=== PATIENT | male | born 1960 | race Caucasian/White ===

== ENCOUNTER → 2016-09-27 | Outpatient (REF) | payer OTHER | LOC: M LAB REF 16:29 | PROVIDERS: ATTEND Family Medicine | DX: R10.9 Unspecified abdominal pain (principal) ==

== ENCOUNTER → 2017-12-20 | Outpatient (REF) | payer BC ==
[2017-12-20 15:56] LABS: HEMATOCRIT 42.3 % (42.0-52.0); HEMOGLOBIN 14.6 g/dl (13.5-17.5); MEAN CORPUSCULAR HEMOGLOBIN 33.3 pg (27.0-33.0); MEAN CORPUSCULAR HGB CONC 34.5 g/dl (32.0-36.5); MEAN CORPUSCULAR VOLUME 96.6 fl (80.0-96.0); PLATELET COUNT, AUTOMATED 176 10^3/uL (150-450); RED BLOOD COUNT 4.38 10^6/uL (4.30-6.10); RED CELL DISTRIBUTION WIDTH 12.8 % (11.5-14.5); WHITE BLOOD COUNT 9.3 10^3/uL (4.0-10.0)
== END ==
LOC: M LABDRAW1 14:10
DX: Z47.89 Encounter for other orthopedic aftercare (principal)
CPT/HCPCS: 85027

== ENCOUNTER → 2018-10-21 | Outpatient (REF) | payer BC | LOC: M LAB REF 15:58 | PROVIDERS: ATTEND Surgery | DX: Z12.11 Encounter for screening for malignant neoplasm of colon (principal) ==

== ENCOUNTER 2018-12-10 07:30 | Day surgery (SDC) | payer BC ==
[~2018-12-10] VITALS: Ht 177.8 cm; Wt 107.5 kg
[~2018-12-10 07:30] MED LIST: HYDR12.55 PO; LISI10TA4 PO; METF-839 PO; OMEP40CA2 PO; ZOLO50TA PO
[2018-12-10] MEDS ORDERED: NS 1,000 ML IV ONE (07:45)
[2018-12-10] MEDS ORDERED: LIDOCAINE 2% INJ 100 MG/5 ML SDV (FOR ANES.) As Ordered ONE (07:58)
[2018-12-10] MEDS ORDERED: PROPOFOL 500 MG/50 ML VIAL As Ordered ONE ×2 (07:58→08:15)
[2018-12-10] MEDS ORDERED: ESMOLOL INJ 100MG/10ML VIAL As Ordered ONE (08:23)
[2018-12-10] MEDS ORDERED: fentaNYL 100 MCG/2 ML INJECTION (J3010) As Ordered ONE (08:23)
[2018-12-10] MEDS ORDERED: hydrALAZINE INJ 20 MG/ML VIAL As Ordered ONE (08:32)
--- NOTE | 2018-12-10 08:44 | ROOR ---
Patient Name: Dipak Mcmahan Procedure Date: 12/10/2018 7:53 AM Date of : 1960 Age: 58 Room: [facility] Gender: Male Note Status: Finalized Procedure: Colonoscopy Indications: Screening for colorectal malignant neoplasm Providers: Fco Cates MD Referring MD: Nader Goldman MD Requesting Provider: Medicines: Monitored Anesthesia Care Complications: No immediate complications. Procedure: Pre-Anesthesia Assessment: - Prior to the procedure, a History and Physical was performed, and patient medications and allergies were reviewed. The patient is competent. The risks and benefits of the procedure and the sedation options and risks were discussed with the patient. All questions were answered and informed consent was obtained. Patient identification and proposed procedure were verified by the physician, the nurse and the anesthesiologist in the endoscopy suite. Mental Status Examination: alert and oriented. Airway Examination: normal oropharyngeal airway and neck mobility. Respiratory Examination: clear to auscultation. CV Examination: normal. Prophylactic Antibiotics: The patient does not require prophylactic antibiotics. Prior Anticoagulants: The patient has taken aspirin, last dose was 1 day prior to procedure. ASA Grade Assessment: III - A patient with severe systemic disease. After reviewing the risks and benefits, the patient was deemed in satisfactory condition to undergo the procedure. The anesthesia plan was to use monitored anesthesia care (MAC). Immediately prior to administration of medications, the patient was re-assessed for adequacy to receive sedatives. The heart rate, respiratory rate, oxygen saturations, blood pressure, adequacy of pulmonary ventilation, and response to care were monitored throughout the procedure. The physical status of the patient was re-assessed after the procedure. The Colonoscope was introduced through the anus and advanced to the cecum, identified by appendiceal orifice and ileocecal valve. The colonoscopy was technically difficult and complex due to the patient's medical instability in reaction to sedation medication. Successful completion of the procedure was aided by increasing the dose of sedation medication. The patient tolerated the procedure fairly well. The quality of the bowel preparation was good. Findings: The perianal and digital rectal examinations were normal. Multiple small-mouthed diverticula were found in the sigmoid colon, transverse colon and ascending colon. There was no evidence of diverticular bleeding. Two pedunculated polyps were found in the distal transverse colon. The polyps were 7 to 10 mm in size. These polyps were removed with a hot snare. Resection and retrieval were complete. Estimated blood loss: none. A 20 mm polyp was found in the sigmoid colon. The polyp was pedunculated. The polyp was removed with a hot snare. Resection and retrieval were complete. Estimated blood loss: none. To prevent bleeding after the polypectomy, one hemostatic clip was successfully placed (MR conditional). There was no bleeding at the end of the procedure. A 10 mm polyp was found in the sigmoid colon. The polyp was pedunculated. The polyp was removed with a hot snare. Resection and retrieval were complete. Estimated blood loss: none. The retroflexed view of the distal rectum and anal verge was normal and showed no anal or rectal abnormalities. Impression: - Mild diverticulosis in the sigmoid colon, in the transverse colon and in the ascending colon. There was no evidence of diverticular bleeding. - Two 7 to 10 mm polyps in the distal transverse colon, removed with a hot snare. Resected and retrieved. - One 20 mm polyp in the sigmoid colon, removed with a hot snare. Resected and retrieved. Clip (MR conditional) was placed. - One 10 mm polyp in the sigmoid colon, removed with a hot snare. Resected and retrieved. - The distal rectum and anal verge are normal on retroflexion view. Recommendation: - Discharge patient to home (ambulatory). - High fiber diet indefinitely. - Repeat colonoscopy in 1 year for surveillance of multiple polyps. - Return to my office as previously scheduled. Fco Cates MD Fco Cates MD 12/10/2018 8:43:51 AM Electronically signed by Fco Cates MD Number of Addenda: 0 Note Initiated On: 12/10/2018 7:53 AM Estimated Blood Loss: Estimated blood loss: none.
[2018-12-10 09:00] VITALS: BP 147/77
== END 2018-12-10 09:06 | disposition home or self-care (01) ==
LOC: M OPP 07:30
PROVIDERS: ATTEND Surgery
DX: Z12.11 Encounter for screening for malignant neoplasm of colon (principal); D12.3 Benign neoplasm of transverse colon; D12.5 Benign neoplasm of sigmoid colon; K57.30 Diverticulosis of large intestine without perforation or abscess without bleeding; Z79.84 Long term (current) use of oral hypoglycemic drugs; Z79.899 Other long term (current) drug therapy
CPT/HCPCS: 45385; 88305; J3010

== ENCOUNTER 2019-01-21 07:18 | Day surgery (SDC) | payer BC ==
[~2019-01-21] VITALS: Ht 177.8 cm; Wt 104.8 kg
[~2019-01-21 07:18] MED LIST changes: +NS 1,000 ML IV ONE
[2019-01-21] MEDS ORDERED: PROPOFOL 500 MG/50 ML VIAL As Ordered ONE (08:09)
[2019-01-21] MEDS ORDERED: LIDOCAINE 2% INJ 100 MG/5 ML SDV (FOR ANES.) As Ordered ONE (08:09)
[2019-01-21] MEDS ORDERED: fentaNYL 100 MCG/2 ML INJECTION (J3010) As Ordered ONE (08:21)
--- NOTE | 2019-01-21 09:01 | ROOR ---
Patient Name: Dipak Mcmahan Procedure Date: 01/21/2019 8:06 AM Date of : 1960 Age: 58 Room: [facility] Gender: Male Note Status: Finalized Procedure: Colonoscopy Indications: High risk colon cancer surveillance: Personal history of colonic polyps Providers: Fco Cates MD Referring MD: Nader Goldman MD Requesting Provider: Medicines: to [place] site of malignant polyp Complications: No immediate complications. Procedure: Pre-Anesthesia Assessment: - Prior to the procedure, a History and Physical was performed, and patient medications and allergies were reviewed. The patient is competent. The risks and benefits of the procedure and the sedation options and risks were discussed with the patient. All questions were answered and informed consent was obtained. Patient identification and proposed procedure were verified by the physician, the nurse and the anesthesiologist in the endoscopy suite. Mental Status Examination: alert and oriented. Airway Examination: normal oropharyngeal airway and neck mobility. Respiratory Examination: clear to auscultation. CV Examination: normal. Prophylactic Antibiotics: The patient does not require prophylactic antibiotics. Prior Anticoagulants: The patient has taken no previous anticoagulant or antiplatelet agents. ASA Grade Assessment: III - A patient with severe systemic disease. After reviewing the risks and benefits, the patient was deemed in satisfactory condition to undergo the procedure. The anesthesia plan was to use monitored anesthesia care (MAC). Immediately prior to administration of medications, the patient was re-assessed for adequacy to receive sedatives. The heart rate, respiratory rate, oxygen saturations, blood pressure, adequacy of pulmonary ventilation, and response to care were monitored throughout the procedure. The physical status of the patient was re-assessed after the procedure. The Colonoscope was introduced through the anus and advanced to the descending colon to examine a polypectomy site. This was the intended extent. The colonoscopy was technically difficult and complex due to Patient abdominal breathing, apneic spells. Successful completion of the procedure was aided by increasing the dose of sedation medication. Findings: Hemorrhoids were found on perianal exam. scar from polypectomy located at 20 cms from anal verge. carbon spot marking with kassandra ink place in 3 areas past the polypectomy site, Estimated blood loss: none. A 5 mm polyp was found in the sigmoid colon at 20 cm proximal to the anus. The polyp was sessile. The polyp was removed with a cold snare. Resection and retrieval were complete. Estimated blood loss was minimal. Impression: - Hemorrhoids found on perianal exam. - One 5 mm polyp in the sigmoid colon at 20 cm proximal to the anus, removed with a cold snare. Resected and retrieved. Recommendation: - Patient for LAR tomorrow Fco Cates MD Fco Cates MD 01/21/2019 9:01:45 AM Electronically signed by Fco Cates MD Number of Addenda: 0 Note Initiated On: 01/21/2019 8:06 AM Estimated Blood Loss: Estimated blood loss was minimal.
[2019-01-21 09:20] VITALS: BP 172/103
== END 2019-01-21 09:35 | disposition home or self-care (01) ==
LOC: M OPP 07:18
PROVIDERS: ATTEND Surgery
DX: C18.7 Malignant neoplasm of sigmoid colon (principal); Z08 Encounter for follow-up examination after completed treatment for malignant neoplasm; Z86.010 Personal history of colon polyps; K63.5 Polyp of colon; K64.9 Unspecified hemorrhoids; Z79.84 Long term (current) use of oral hypoglycemic drugs; Z79.899 Other long term (current) drug therapy
CPT/HCPCS: 45385; 88305; J3010

== ENCOUNTER 2019-01-22 11:34 | Inpatient (IN) | payer BC ==
[~2019-01-22] VITALS: Ht 177.8 cm; Wt 102.5 kg
[~2019-01-22 11:34] MED LIST changes: +ALVIMOPAN 12 MG CAPSULE (ENTEREG) PO ONE; +HEPARIN SOD (PORCINE) 5000 UNITS/ML VIAL SQ ONE; +LR 1,000 ML IV ONE; -NS 1,000 ML IV ONE; +cefoTEtan DISODIUM 2 GM in D5W MINI-BAG PLUS 50 ML IV ONE; +metroNIDAZOLE 500 MG in APPROPRIATE DILUENT 1 EA IV ONE
[2019-01-22] MEDS ORDERED: LIDOCAINE 1% SDV INJ 30 ML VIAL As Ordered ONE (13:10)
[2019-01-22] MEDS ORDERED: BUPIVACAINE HCL 0.25% 30 ML VIAL As Ordered ONE (13:10)
[2019-01-22] MEDS ORDERED: PROPOFOL 200 MG/20 ML VIAL As Ordered ONE (14:03)
[2019-01-22] MEDS ORDERED: LIDOCAINE 2% INJ 100 MG/5 ML SDV (FOR ANES.) As Ordered ONE (14:03)
[2019-01-22] MEDS ORDERED: fentaNYL 250 MCG/5 ML INJECTION (J3010) As Ordered ONE (14:03)
[2019-01-22] MEDS ORDERED: PHENYLephrine HCL 500 MCG/5 ML (100MCG/ML) SYRINGE (J2370) As Ordered ONE (14:03)
[2019-01-22] MEDS ORDERED: ROCURONIUM BROMIDE 50 MG/5 ML VIAL As Ordered ONE ×3 (14:03→18:02)
[2019-01-22] MEDS ORDERED: MIDAZOLAM INJ 2 MG/2 ML VIAL (J2250) As Ordered ONE (14:03)
[2019-01-22] MEDS ORDERED: ALBUTEROL 6.7GM INHALER **FOR ANES. CART/OMNICELL ONLY As Ordered ONE (14:12)
[2019-01-22] MEDS ORDERED: dexameTHASONE 4 MG/ML 1ML VIAL (J1100) As Ordered ONE (14:23)
[2019-01-22] MEDS ORDERED: HYDROmorphone HCL 2 MG/ML 1ML VIAL (J1170) As Ordered ONE (15:23)
[2019-01-22] MEDS ORDERED: LABETALOL HCL 100 MG/20 ML VIAL As Ordered ONE (15:24)
[2019-01-22] MEDS ORDERED: DESFLURANE 240 ML INHALANT As Ordered ONE (15:37)
[2019-01-22] MEDS ORDERED: hydrALAZINE INJ 20 MG/ML VIAL As Ordered ONE ×2 (16:19→19:59)
[2019-01-22] MEDS ORDERED: SUGAMMADEX SODIUM 500 MG/5 ML VIAL (BRIDION) As Ordered ONE (19:10)
[2019-01-22] MEDS ORDERED: fentaNYL 100 MCG/2 ML INJECTION (J3010) As Ordered ONE ×2 (19:37→20:43)
[2019-01-22] MEDS: fentaNYL 100 MCG/2 ML INJECTION (J3010) IV PRN ×5 (19:40→20:44)
[2019-01-22] MEDS ORDERED: MEPERIDINE INJ 25 MG/ML VIAL (J2175) IV PRN (19:45)
[2019-01-22] MEDS ORDERED: PERCOCET 5MG/325MG TAB PO PRN (19:45)
[2019-01-22] MEDS ORDERED: ONDANSETRON 4MG/2ML VIAL (J2405) IV PRN ×2 (19:45)
[2019-01-22] MEDS ORDERED: ACETAMINOPHEN TAB 650MG DOSE (2X325MG) PO PRN (19:45)
[2019-01-22] MEDS: LR 1,000 ML IV SCH ×3 (19:45→22:27)
[2019-01-22] MEDS ORDERED: METOCLOPRAMIDE INJ 10MG/2ML VIAL (J2765) IV PRN (19:45)
[2019-01-22] MEDS ORDERED: DEXTROSE 50% 50 ML SYRINGE IV PRN (20:00)
[2019-01-22] MEDS ORDERED: GLUCOSE 4 GM CHEW TABLET PO PRN (20:00)
[2019-01-22] MEDS ORDERED: GLUCAGON FOR INJ 1 MG VIAL (J1610) SC PRN (20:00)
[2019-01-22] MEDS: hydrALAZINE INJ 20 MG/ML VIAL IV SCH ×3 (20:02→20:15)
[2019-01-22] MEDS: oxyCODONE 5MG TAB PO PRN ×2 (20:10→20:40)
[2019-01-22 21:30] VITALS: BP 144/84
[2019-01-22 22:00] VITALS: BP 145/87
[2019-01-22] MEDS: HEPARIN SOD (PORCINE) 5000 UNITS/ML VIAL SC SCH (22:27)
[2019-01-22] MEDS: SENOKOT S TAB PO SCH (22:27)
[2019-01-22] MEDS: ALVIMOPAN 12 MG CAPSULE (ENTEREG) PO SCH (22:27)
[2019-01-22 23:00] VITALS: BP 146/87
[2019-01-22] MEDS: KETOROLAC 30 MG/ML VIAL (J1885) IV PRN (23:38)
[2019-01-23] VITALS (8 sets, daily range): BP systolic 111–145; BP diastolic 61–85
[2019-01-23 06:11] LABS: BASO % 0.2 % (0.0-1.0); HEMOGLOBIN 13.6 g/dl (13.5-17.5); LYMPH # 1.3 10^3/uL (1.5-4.5); LYMPH % 11.6 % (24.0-44.0); MEAN CORPUSCULAR HEMOGLOBIN 32.5 pg (27.0-33.0); MEAN CORPUSCULAR VOLUME 95.7 fl (80.0-96.0); MONO # 1.1 10^3/uL (0.0-0.8); MONO % 9.8 % (0.0-5.0); NEUTROPHILS # 8.5 10^3/uL (1.8-7.7); NEUTROPHILS % 77.9 % (36.0-66.0); PLATELET COUNT, AUTOMATED 158 10^3/uL (150-450); RED BLOOD COUNT 4.18 10^6/uL (4.30-6.10); WHITE BLOOD COUNT 10.9 10^3/uL (4.0-10.0)
[2019-01-23] MEDS: KETOROLAC 30 MG/ML VIAL (J1885) IV PRN (06:26)
[2019-01-23 06:42] LABS: BLOOD UREA NITROGEN 15 MG/DL (7-18); CALCIUM LEVEL 8.6 MG/DL (8.5-10.1); CARBON DIOXIDE LEVEL 30 MEQ/L (21-32); CHLORIDE LEVEL 102 MEQ/L (98-107); GLOMERULAR FILTRATION RATE > 60.0 (>56); GLUCOSE, FASTING 122 MG/DL (70-100); POTASSIUM SERUM 3.9 MEQ/L (3.5-5.1); SODIUM LEVEL 137 MEQ/L (136-145)
[2019-01-23] MEDS: HEPARIN SOD (PORCINE) 5000 UNITS/ML VIAL SC SCH ×3 (06:59→21:36)
[2019-01-23] MEDS: HumaLOG INSULIN (NovoLOG) PER UNIT SC SCH ×5 (07:00→20:36)
[2019-01-23] MEDS: LISINOPRIL 10 MG TAB PO SCH (08:50)
[2019-01-23] MEDS: ALVIMOPAN 12 MG CAPSULE (ENTEREG) PO SCH ×2 (08:50→20:36)
[2019-01-23] MEDS: SENOKOT S TAB PO SCH ×2 (08:50→20:35)
[2019-01-23] MEDS: PANTOPRAZOLE 40MG INJ (PROTONIX) (C9113) IV SCH (08:50)
[2019-01-23] MEDS: LR 1,000 ML IV SCH ×3 (08:51→15:17)
[2019-01-23] MEDS: MORPHINE 4 MG/ML 1ML VIAL/SYRINGE (J2270) IV PRN ×4 (08:52→21:37)
[2019-01-23] MEDS ORDERED: DEXTROSE 50% 50 ML SYRINGE IV PRN (16:45)
[2019-01-23] MEDS ORDERED: GLUCAGON FOR INJ 1 MG VIAL (J1610) SC PRN (16:45)
[2019-01-23] MEDS ORDERED: GLUCOSE 4 GM CHEW TABLET PO PRN (16:45)
[2019-01-23] MEDS ORDERED: SIMETHICONE 80 MG CHEW TAB PO PRN (21:30)
[2019-01-24] MEDS: LR 1,000 ML IV SCH (00:04)
[2019-01-24 02:00] VITALS: BP 118/78
[2019-01-24] MEDS: MORPHINE 4 MG/ML 1ML VIAL/SYRINGE (J2270) IV PRN (03:07)
[2019-01-24 06:00] VITALS: BP 126/68
[2019-01-24] MEDS: HEPARIN SOD (PORCINE) 5000 UNITS/ML VIAL SC SCH ×3 (06:00→21:05)
[2019-01-24 06:25] LABS: BASO # 0.1 10^3/uL (0.0-0.2); BASO % 0.6 % (0.0-1.0); EOS # 0.1 10^3/uL (0.0-0.50); EOS % 1.4 % (0.0-3.0); HEMOGLOBIN 13.2 g/dl (13.5-17.5); LYMPH # 1.7 10^3/uL (1.5-4.5); LYMPH % 20.9 % (24.0-44.0); MEAN CORPUSCULAR HEMOGLOBIN 33.4 pg (27.0-33.0); MEAN CORPUSCULAR HGB CONC 33.8 g/dl (32.0-36.5); MEAN CORPUSCULAR VOLUME 98.7 fl (80.0-96.0); MONO # 0.8 10^3/uL (0.0-0.8); MONO % 9.6 % (0.0-5.0); NEUTROPHILS # 5.6 10^3/uL (1.8-7.7); NEUTROPHILS % 67.1 % (36.0-66.0); PLATELET COUNT, AUTOMATED 128 10^3/uL (150-450); RED BLOOD COUNT 3.95 10^6/uL (4.30-6.10); WHITE BLOOD COUNT 8.3 10^3/uL (4.0-10.0)
[2019-01-24 06:42] LABS: BLOOD UREA NITROGEN 7 MG/DL (7-18); CALCIUM LEVEL 8.6 MG/DL (8.5-10.1); CARBON DIOXIDE LEVEL 31 MEQ/L (21-32); CHLORIDE LEVEL 106 MEQ/L (98-107); CREATININE FOR GFR 0.55 MG/DL (0.70-1.30); GLOMERULAR FILTRATION RATE > 60.0 (>56); GLUCOSE, FASTING 108 MG/DL (70-100); POTASSIUM SERUM 3.3 MEQ/L (3.5-5.1); SODIUM LEVEL 141 MEQ/L (136-145)
[2019-01-24] MEDS: PANTOPRAZOLE 40MG INJ (PROTONIX) (C9113) IV SCH (08:36)
[2019-01-24] MEDS: ALVIMOPAN 12 MG CAPSULE (ENTEREG) PO SCH ×2 (08:36→21:05)
[2019-01-24] MEDS: SENOKOT S TAB PO SCH ×2 (08:36→21:05)
[2019-01-24] MEDS: LISINOPRIL 10 MG TAB PO SCH (08:37)
[2019-01-24] MEDS: HumaLOG INSULIN (NovoLOG) PER UNIT SC SCH ×4 (08:37→20:57)
[2019-01-24] MEDS: PERCOCET 5MG/325MG TAB PO PRN ×2 (08:39→19:45)
[2019-01-24] MEDS: POTASSIUM CHLORIDE 10 MEQ SR TABLET PO SCH (09:00)
--- NOTE | 2019-01-24 10:31 | IPNPDOC ---
Subjective General Date/Time Seen The patient was seen on 01/24/19 at 10:12. Subject Chief Complaint/History The patient is a 58-year-old male admitted with a reason for visit of Sigmoid Colon Cancer. Patient feels a little bit uncomfortable due to abdominal distention today. He is passing flatus intermittently and feels much better after passing flatus. He is making adequate urine output. He has got a lot of serosanguineous drainage from the LAURA drain. He's been afebrile. He has been walking to the hallways. Current Medications Current Medications Current Medications Medications (Trade) Dose Ordered Sig/Ev Route PRN Reason Start Time Stop Time Status Last Admin Dose Admin Acetaminophen (Tylenol Tab) 650 mg Q4HP PRN PO MILD PAIN or TEMP > 101 01/22/19 19:45 Alvimopan (Entereg) 12 mg BID PO 01/22/19 21:00 01/29/19 20:59 01/24/19 08:36 Dextrose (Dextrose 50%) 25 ml ASDIRECTED PRN IV SEE LABEL COMMENTS 01/22/19 20:00 01/23/19 16:38 DC Dextrose (Dextrose 50%) 25 ml ASDIRECTED PRN IV SEE LABEL COMMENTS 01/23/19 16:45 Fentanyl Citrate (Sublimaze) 25 mcg Q5MP PRN IV MODERATE PAIN (PS 4-7) 01/22/19 19:45 01/22/19 20:45 DC 01/22/19 20:44 Glucagon (Glucagon) 1 mg ASDIRECTED PRN SC SEE LABEL COMMENTS 01/22/19 20:00 01/23/19 16:38 DC Glucagon (Glucagon) 1 mg ASDIRECTED PRN SC SEE LABEL COMMENTS 01/23/19 16:45 Glucose (Glucose) 16 GM ASDIRECTED PRN PO SEE LABEL COMMENTS 01/22/19 20:00 01/23/19 16:38 DC Glucose (Glucose) 16 GM ASDIRECTED PRN PO SEE LABEL COMMENTS 01/23/19 16:45 Heparin Sodium (Porcine) (Heparin) 5,000 units Q8H SC 01/22/19 22:00 01/23/19 21:36 Hydralazine HCl (Apresoline) 5 mg ASDIRECTED IV 01/22/19 20:15 01/22/19 21:15 DC 01/22/19 20:15 Insulin Human Lispro (HumaLOG INSULIN) SEE PROTOCOL TABLE AC MD 01/23/19 17:30 01/24/19 08:37 Insulin Human Lispro (HumaLOG INSULIN) SEE PROTOCOL TABLE Q6H MD 01/23/19 00:00 01/23/19 16:36 DC 01/23/19 07:00 Insulin Human Lispro (HumaLOG INSULIN) SEE PROTOCOL TABLE QHS MD 01/23/19 21:00 Ketorolac Tromethamine (ToRADol) 30 mg Q6HP PRN IV MILD/MODERATE PAIN (PS 1-7) 01/22/19 19:45 01/27/19 19:44 01/23/19 06:26 Lactated Ringer's 1,000 ml @ 100 mls/hr Q10H IV 01/22/19 19:41 01/24/19 00:04 Lactated Ringer's 1,000 ml @ 100 mls/hr Q10H IV 01/22/19 19:45 01/22/19 20:45 DC Lisinopril (Prinivil) 10 mg DAILY PO 01/23/19 09:00 01/24/19 08:37 Meperidine HCl (Demerol) 12.5 mg Q5MP PRN IV SHIVERING 01/22/19 19:45 01/22/19 20:45 DC Metoclopramide HCl (REGLAN INJection) 10 mg Q6HP PRN IV NAUSEA OR VOMITING 01/22/19 19:45 01/22/19 20:45 DC Morphine Sulfate (Morphine Sulfate Inj) 4 mg Q2HP PRN IV SEVERE PAIN (PS 8-10) 01/22/19 19:45 01/24/19 03:07 Ondansetron HCl (ZOFRAN INJection) 4 mg Q4HP PRN IV NAUSEA OR VOMITING 01/22/19 19:45 01/22/19 20:45 DC Ondansetron HCl (ZOFRAN INJection) 4 mg Q6HP PRN IV NAUSEA OR VOMITING 01/22/19 19:45 Oxycodone HCl (Roxicodone, Oxyir) 5 mg ASDIRECTED PRN PO MILD/MODERATE PAIN (PS 1-7) 01/22/19 19:45 01/22/19 20:45 DC 01/22/19 20:40 Oxycodone/ Acetaminophen (Percocet 5mg/ 325mg Tablet) 1 tab Q4HP PRN PO MODERATE PAIN (PS 5-7) 01/22/19 19:45 Oxycodone/ Acetaminophen (Percocet 5mg/ 325mg Tablet) 2 tab Q6HP PRN PO SEVERE PAIN (PS 8-10) 01/22/19 19:45 01/24/19 08:39 Pantoprazole Sodium (Protonix) 40 mg DAILY IV 01/23/19 09:00 01/24/19 08:36 Senna/Docusate Sodium (Senokot S) 1 tab BID PO 01/22/19 21:00 01/24/19 08:36 Simethicone (Mylicon) 80 mg Q6HP PRN PO GAS PAIN 01/23/19 21:30 01/23/19 21:37 Allergies Coded Allergies: No Known Allergies (Verified , 11/30/02) Objective Physical Examination Examination GENERAL APPEARANCE: Mildly uncomfortable. SKIN: Warm and dry. HEENT: Mildly dry lips. [place] palpebral conjunctiva.. NECK: Supple, no thyromegaly. No obvious jugular venous distention. LUNGS: Clear to auscultation bilaterally. No wheezing appreciated. HEART: No chest wall abnormalities. Regular rate and rhythm with no murmurs appreciated. ABDOMEN: Abdomen is prominent distention on the upper abdomen, tympanitic to percussion, soft, minimally tender around midline incision without guarding.. Dressings are clean, dry and intact. Moderate staining around the LAURA drain sites where there is leakage. LAURA drain containing thin pink serosanguineous fluid. EXTREMITIES: No extremity edema. Vital Signs Vital Signs Date Time Temp Pulse Resp B/P (MAP) Pulse Ox O2 Delivery O2 Flow Rate FiO2 01/24/19 09:09 16 01/24/19 08:37 128/68 01/24/19 06:00 98.6 81 97 01/24/19 03:17 2.0 01/22/19 22:00 Nasal Cannula I&Os I&O- Last 24 Hours up to 6 AM 01/24/19 05:59 Intake Total 4130 ml Output Total 1425 ml Balance 2705 ml Laboratory Data Labs 24H Laboratory Tests 2 01/23/19 11:45: Bedside Glucose (Misc Panel) 95 01/23/19 16:32: Bedside Glucose (Misc Panel) 115H 01/23/19 20:29: Bedside Glucose (Misc Panel) 164H 01/24/19 05:32: Immature Granulocyte % (Auto) 0.4, White Blood Count 8.3, Red Blood Count 3.95L, Hemoglobin 13.2L, Hematocrit 39.0L, Mean Corpuscular Volume 98.7H, Mean [place] uscular Hemoglobin 33.4H, Mean Corpuscular Hemoglobin Concent 33.8, Red Cell Distribution Width 12.3, Platelet Count 128L, Neutrophils (%) (Auto) 67.1H, Lymphocytes (%) (Auto) 20.9L, Monocytes (%) (Auto) 9.6H, Eosinophils (%) (Auto) 1.4, Basophils (%) (Auto) 0.6, Neutrophils # (Auto) 5.6, Lymphocytes # (Auto) 1.7, Monocytes # (Auto) 0.8, Eosinophils # (Auto) 0.1, Basophils # (Auto) 0.1, Nucleated Red Blood Cells % (auto) 0.0, Anion Gap 4L, Glomerular Filtration Rate > 60.0, Blood Urea Nitrogen 7#, Creatinine 0.55L, Sodium Level 141, Potassium Level 3.3L, Chloride Level 106, Carbon Dioxide Level 31, Calcium Level 8.6 CBC/BMP Laboratory Tests 01/24/19 05:32 Red Blood Count 3.95 L, Mean Corpuscular Volume 98.7 H, Mean Corpuscular Hemoglobin 33.4 H, Mean Corpuscular Hemoglobin Concent 33.8, Red Cell Distribution Width 12.3, Neutrophils (%) (Auto) 67.1 H, Lymphocytes (%) (Auto) 20.9 L, Monocytes (%) (Auto) 9.6 H, Eosinophils (%) (Auto) 1.4, Basophils (%) (Auto) 0.6, Neutrophils # (Auto) 5.6, Lymphocytes # (Auto) 1.7, Monocytes # (Auto) 0.8, Eosinophils # (Auto) 0.1, Basophils # (Auto) 0.1, Calcium Level 8.6 Impression Postop day 2 and robotic assisted laparoscopic sigmoid colon resection for malignant colon polyp He still looks a bit distended but he is passing flatus small smear of stool noted yesterday. He is ambulating the hallways and I encouraged him to continue to ambulate to hallways to help with passing gas. He does report relief when he passes flatus. His labs are stable. His leukocytosis resolved. He has some mild hypokalemia. I will continue him on soft diet for now. We'll give him a dose of milk of magnesia. Pathology is pending. He also has some mild thrombocytopenia. His heparin is on hold. He is ambulating the hallways. He's got SCDs when he is in bed. Plan / VTE VTE Prophylaxis Ordered?: Yes VTE Exclusion Pharmacological: Thrombocytopenia KARSON LOPEZ MD Jan 24, 2019 10:31
--- NOTE | 2019-01-24 10:34 | ROOPDOC ---
[facility] Report Of Operation Report of Operation DATE OF PROCEDURE: 01/22/19 PREPROCEDURE DIAGNOSES: Malignant colon polyp at the sigmoid colon. 20 cm from the anal verge POSTPROCEDURE DIAGNOSES: Same. PROCEDURE: Robotic-assisted laparoscopic sigmoid colectomy (including upper rectum). SURGEON: Fco Cates MD [employer] OPERATOR: Talib Barrera MD ANESTHESIA: Gen. anesthesia. ESTIMATED BLOOD LOSS: Approximately 200 mL. COMPLICATIONS: None. REMARKS: . PROCEDURE NOTE: . DESCRIPTION OF PROCEDURE: . FCO CATES MD Jan 24, 2019 10:34
[2019-01-24] MEDS: KCL 20MEQ IN 0.45NS 1000ML 1,000 ML IV SCH (12:21)
[2019-01-24 14:00] VITALS: BP 125/79
[2019-01-24] MEDS ORDERED: SERTRALINE HCL 50 MG TAB PO ONE (20:00)
[2019-01-24 22:00] VITALS: BP 139/88
[2019-01-25] MEDS: KCL 20MEQ IN 0.45NS 1000ML 1,000 ML IV SCH ×2 (00:50→13:28)
[2019-01-25] MEDS: HEPARIN SOD (PORCINE) 5000 UNITS/ML VIAL SC SCH ×3 (05:16→22:00)
[2019-01-25 06:00] VITALS: BP 98/88
[2019-01-25 06:15] LABS: BASO # 0.1 10^3/uL (0.0-0.2); BASO % 0.8 % (0.0-1.0); EOS # 0.2 10^3/uL (0.0-0.50); EOS % 2.6 % (0.0-3.0); HEMATOCRIT 38.2 % (42.0-52.0); LYMPH # 1.8 10^3/uL (1.5-4.5); LYMPH % 23.4 % (24.0-44.0); MEAN CORPUSCULAR HEMOGLOBIN 32.6 pg (27.0-33.0); MEAN CORPUSCULAR VOLUME 95.7 fl (80.0-96.0); MONO # 0.8 10^3/uL (0.0-0.8); MONO % 10.2 % (0.0-5.0); NEUTROPHILS # 4.9 10^3/uL (1.8-7.7); NEUTROPHILS % 62.7 % (36.0-66.0); PLATELET COUNT, AUTOMATED 134 10^3/uL (150-450); RED BLOOD COUNT 3.99 10^6/uL (4.30-6.10); WHITE BLOOD COUNT 7.8 10^3/uL (4.0-10.0)
[2019-01-25 06:32] LABS: BLOOD UREA NITROGEN 7 MG/DL (7-18); CALCIUM LEVEL 8.6 MG/DL (8.5-10.1); CARBON DIOXIDE LEVEL 29 MEQ/L (21-32); CHLORIDE LEVEL 106 MEQ/L (98-107); CREATININE FOR GFR 0.54 MG/DL (0.70-1.30); GLOMERULAR FILTRATION RATE > 60.0 (>56); GLUCOSE, FASTING 113 MG/DL (70-100); POTASSIUM SERUM 3.6 MEQ/L (3.5-5.1); SODIUM LEVEL 141 MEQ/L (136-145)
[2019-01-25] MEDS: PANTOPRAZOLE 40MG INJ (PROTONIX) (C9113) IV SCH (08:05)
[2019-01-25] MEDS: HumaLOG INSULIN (NovoLOG) PER UNIT SC SCH ×4 (08:06→21:00)
[2019-01-25] MEDS: SERTRALINE HCL 50 MG TAB PO SCH (08:06)
[2019-01-25] MEDS: POTASSIUM CHLORIDE 10 MEQ SR TABLET PO SCH (08:07)
[2019-01-25] MEDS: ALVIMOPAN 12 MG CAPSULE (ENTEREG) PO SCH ×2 (08:07→21:33)
[2019-01-25] MEDS: SENOKOT S TAB PO SCH ×2 (08:07→21:33)
[2019-01-25] MEDS: PERCOCET 5MG/325MG TAB PO PRN ×3 (08:15→22:46)
[2019-01-25] MEDS: LISINOPRIL 10 MG TAB PO SCH (09:00)
[2019-01-25 14:00] VITALS: BP 138/87
[2019-01-25 22:00] VITALS: BP 140/88
[2019-01-26] MEDS: HEPARIN SOD (PORCINE) 5000 UNITS/ML VIAL SC SCH ×3 (05:06→22:00)
[2019-01-26] MEDS: PERCOCET 5MG/325MG TAB PO PRN ×3 (05:56→22:46)
[2019-01-26 06:00] VITALS: BP 143/89
[2019-01-26 07:08] LABS: BASO # 0.1 10^3/uL (0.0-0.2); EOS # 0.4 10^3/uL (0.0-0.5); HEMATOCRIT 41.9 % (42.0-52.0); HEMOGLOBIN 14.3 g/dl (13.5-17.5); LYMPH # 1.6 10^3/uL (1.5-5.0); LYMPH % 21.1 % (24.0-44.0); MEAN CORPUSCULAR HEMOGLOBIN 32.9 pg (27.0-33.0); MEAN CORPUSCULAR HGB CONC 34.1 g/dl (32.0-36.5); MEAN CORPUSCULAR VOLUME 96.5 fl (80.0-96.0); MONO # 0.7 10^3/uL (0.0-0.8); MONO % 9.6 % (0.0-5.0); NEUTROPHILS # 4.6 10^3/uL (1.5-8.5); NEUTROPHILS % 62.9 % (36.0-66.0); PLATELET COUNT, AUTOMATED 141 10^3/uL (150-450); RED BLOOD COUNT 4.34 10^6/uL (4.30-6.10); WHITE BLOOD COUNT 7.4 10^3/uL (4.0-10.0)
[2019-01-26 07:28] LABS: BLOOD UREA NITROGEN 7 MG/DL (7-18); CALCIUM LEVEL 8.7 MG/DL (8.5-10.1); CARBON DIOXIDE LEVEL 30 MEQ/L (21-32); CHLORIDE LEVEL 106 MEQ/L (98-107); CREATININE FOR GFR 0.58 MG/DL (0.70-1.30); GLOMERULAR FILTRATION RATE > 60.0 (>56); GLUCOSE, FASTING 113 MG/DL (70-100); POTASSIUM SERUM 3.6 MEQ/L (3.5-5.1); SODIUM LEVEL 140 MEQ/L (136-145)
[2019-01-26] MEDS: PANTOPRAZOLE 40MG INJ (PROTONIX) (C9113) IV SCH (08:19)
[2019-01-26] MEDS: LISINOPRIL 10 MG TAB PO SCH (08:20)
[2019-01-26] MEDS: SERTRALINE HCL 50 MG TAB PO SCH (08:20)
[2019-01-26] MEDS: SENOKOT S TAB PO SCH ×2 (08:20→21:43)
[2019-01-26] MEDS: ALVIMOPAN 12 MG CAPSULE (ENTEREG) PO SCH ×2 (08:20→21:43)
[2019-01-26] MEDS: HumaLOG INSULIN (NovoLOG) PER UNIT SC SCH ×4 (08:20→21:00)
[2019-01-26] MEDS: POTASSIUM CHLORIDE 10 MEQ SR TABLET PO SCH (08:20)
[2019-01-26] MEDS: KCL 20MEQ IN 0.45NS 1000ML 1,000 ML IV SCH (08:21)
--- NOTE | 2019-01-26 10:01 | IPNPDOC ---
Subjective General Date/Time Seen The patient was seen on 01/26/19 at 10:00. Subject Chief Complaint/History The patient is a 58-year-old male admitted with a reason for visit of Sigmoid Colon Cancer. He continues to do well. He is tolerating regular soft food. He is denying any nausea or vomiting. He is made a couple of bowel movements which has decompressed his abdominal distention. He is reporting some mild dysuria yesterday but gone today. He is having a lot of output from his Bandar-Ortiz drain but this appears serous. He is ambulating to the hallways. Current Medications Current Medications Current Medications Medications (Trade) Dose Ordered Sig/Ev Route PRN Reason Start Time Stop Time Status Last Admin Dose Admin Acetaminophen (Tylenol Tab) 650 mg Q4HP PRN PO MILD PAIN or TEMP > 101 01/22/19 19:45 Alvimopan (Entereg) 12 mg BID PO 01/22/19 21:00 01/29/19 20:59 01/26/19 08:20 Dextrose (Dextrose 50%) 25 ml ASDIRECTED PRN IV SEE LABEL COMMENTS 01/22/19 20:00 01/23/19 16:38 DC Dextrose (Dextrose 50%) 25 ml ASDIRECTED PRN IV SEE LABEL COMMENTS 01/23/19 16:45 Fentanyl Citrate (Sublimaze) 25 mcg Q5MP PRN IV MODERATE PAIN (PS 4-7) 01/22/19 19:45 01/22/19 20:45 DC 01/22/19 20:44 Glucagon (Glucagon) 1 mg ASDIRECTED PRN SC SEE LABEL COMMENTS 01/22/19 20:00 01/23/19 16:38 DC Glucagon (Glucagon) 1 mg ASDIRECTED PRN SC SEE LABEL COMMENTS 01/23/19 16:45 Glucose (Glucose) 16 GM ASDIRECTED PRN PO SEE LABEL COMMENTS 01/22/19 20:00 01/23/19 16:38 DC Glucose (Glucose) 16 GM ASDIRECTED PRN PO SEE LABEL COMMENTS 01/23/19 16:45 Heparin Sodium (Porcine) (Heparin) 5,000 units Q8H SC 01/22/19 22:00 01/24/19 14:36 Hydralazine HCl (Apresoline) 5 mg ASDIRECTED IV 01/22/19 20:15 01/22/19 21:15 DC 01/22/19 20:15 Insulin Human Lispro (HumaLOG INSULIN) SEE PROTOCOL TABLE AC [place] 01/23/19 17:30 01/26/19 08:20 Insulin Human Lispro (HumaLOG INSULIN) SEE PROTOCOL TABLE Q6H [place] 01/23/19 00:00 01/23/19 16:36 DC 01/23/19 07:00 Insulin Human Lispro (HumaLOG INSULIN) SEE PROTOCOL TABLE QHS [place] 01/23/19 21:00 Ketorolac Tromethamine (ToRADol) 30 mg Q6HP PRN IV MILD/MODERATE PAIN (PS 1-7) 01/22/19 19:45 01/27/19 19:44 01/23/19 06:26 Lactated Ringer's 1,000 ml @ 100 mls/hr Q10H IV 01/22/19 19:41 01/24/19 10:13 DC 01/24/19 00:04 Lactated Ringer's 1,000 ml @ 100 mls/hr Q10H IV 01/22/19 19:45 01/22/19 20:45 DC Lisinopril (Prinivil) 10 mg DAILY PO 01/23/19 09:00 01/26/19 08:20 Meperidine HCl (Demerol) 12.5 mg Q5MP PRN IV SHIVERING 01/22/19 19:45 01/22/19 20:45 DC Metoclopramide HCl (REGLAN INJection) 10 mg Q6HP PRN IV NAUSEA OR VOMITING 01/22/19 19:45 01/22/19 20:45 DC Morphine Sulfate (Morphine Sulfate Inj) 4 mg Q2HP PRN IV SEVERE PAIN (PS 8-10) 01/22/19 19:45 01/24/19 03:07 Ondansetron HCl (ZOFRAN INJection) 4 mg Q4HP PRN IV NAUSEA OR VOMITING 01/22/19 19:45 01/22/19 20:45 DC Ondansetron HCl (ZOFRAN INJection) 4 mg Q6HP PRN IV NAUSEA OR VOMITING 01/22/19 19:45 Oxycodone HCl (Roxicodone, Oxyir) 5 mg ASDIRECTED PRN PO MILD/MODERATE PAIN (PS 1-7) 01/22/19 19:45 01/22/19 20:45 DC 01/22/19 20:40 Oxycodone/ Acetaminophen (Percocet 5mg/ 325mg Tablet) 1 tab Q4HP PRN PO MODERATE PAIN (PS 5-7) 01/22/19 19:45 Oxycodone/ Acetaminophen (Percocet 5mg/ 325mg Tablet) 2 tab Q6HP PRN PO SEVERE PAIN (PS 8-10) 01/22/19 19:45 01/26/19 05:56 Pantoprazole Sodium (Protonix) 40 mg DAILY IV 01/23/19 09:00 01/26/19 08:19 Potassium Chloride/Sodium Chloride 1,000 ml @ 75 mls/hr [id number] IV 01/24/19 12:00 01/25/19 13:28 Potassium Chloride (Micro-K Extencaps) 10 meq DAILY PO 01/24/19 09:00 01/26/19 08:20 Senna/Docusate Sodium (Senokot S) 1 tab BID PO 01/22/19 21:00 01/26/19 08:20 Sertraline HCl (Zoloft) 50 mg DAILY PO 01/25/19 09:00 01/26/19 08:20 Simethicone (Mylicon) 80 mg Q6HP PRN PO GAS PAIN 01/23/19 21:30 01/23/19 21:37 Allergies Coded Allergies: No Known Allergies (Verified , 11/30/02) Objective Physical Examination Examination GENERAL APPEARANCE: Patient looks very comfortable. SKIN: Warm and moist. HEENT: Normocephalic, atraumatic. [place] palpebral conjunctiva, anicteric sclerae. Lips and mucosa appear moist. NECK: Supple, no thyromegaly. No obvious jugular venous distention. LUNGS: Clear to auscultation bilaterally. No wheezing appreciated. HEART: No chest wall abnormalities. Regular rate and rhythm with no murmurs appreciated. ABDOMEN: Abdomen is , soft, . A lot softer and markedly less distended than he has been the past 2 days almost back to his preoperative state. Port site dressings are clean, dry and intact. He has some mild tenderness over the right lower quadrant where he strains coming out of from. He is serous-appearing drainage from the Bandar-Ortiz drain. EXTREMITIES: No edema. Vital Signs Vital Signs Date Time Temp Pulse Resp B/P (MAP) Pulse Ox O2 Delivery O2 Flow Rate FiO2 9/2/19 08:20 143/89 01/26/19 06:26 18 01/26/19 06:00 97.9 81 96 01/25/19 02:35 Nasal Cannula 2.0 I&Os I&O- Last 24 Hours up to 6 AM 01/26/19 06:00 Intake Total 1740 ml Output Total 2005 ml Balance -265 ml Laboratory Data Labs 24H Laboratory Tests 2 01/25/19 12:10: Bedside Glucose (Misc Panel) 117H 01/25/19 16:57: Bedside Glucose (Misc Panel) 132H 01/25/19 19:59: Bedside Glucose (Misc Panel) 139H 01/26/19 06:19: Anion Gap 4L, Glomerular Filtration Rate > 60.0, Blood Urea Nitrogen 7, Creatinine 0.58L, Sodium Level 140, Potassium Level 3.6, Chloride Level 106, Carbon Dioxide Level 30, Calcium Level 8.7 01/26/19 06:20: Immature Granulocyte % (Auto) 0.4, White Blood Count 7.4, Red Blood Count 4.34, Hemoglobin 14.3, Hematocrit 41.9L, Mean Corpuscular Volume 96.5H, Mean Corpuscular Hemoglobin 32.9, Mean Corpuscular Hemoglobin Concent 34.1, Red Cell Distribution Width 11.9, Platelet Count 141L, Neutrophils (%) (Auto) 62.9, Lymphocytes (%) (Auto) 21.1L, Monocytes (%) (Auto) 9.6H, Eosinophils (%) (Auto) 5.0H, Basophils (%) (Auto) 1.0, Neutrophils # (Auto) 4.6, Lymphocytes # (Auto) 1.6, Monocytes # (Auto) 0.7, Eosinophils # (Auto) 0.4, Basophils # (Auto) 0.1, Nucleated Red Blood Cells % (auto) 0.0 CBC/BMP Laboratory Tests 01/26/19 06:19 Calcium Level 8.7 01/26/19 06:20 Red Blood Count 4.34, Mean Corpuscular Volume 96.5 H, Mean Corpuscular Hemoglobin 32.9, Mean Corpuscular Hemoglobin Concent 34.1, Red Cell Distribution Width 11.9, Neutrophils (%) (Auto) 62.9, Lymphocytes (%) (Auto) 21.1 L, Monocytes (%) (Auto) 9.6 H, Eosinophils (%) (Auto) 5.0 H, Basophils (%) (Auto) 1.0, Neutrophils # (Auto) 4.6, Lymphocytes # (Auto) 1.6, Monocytes # (Auto) 0.7, Eosinophils # (Auto) 0.4, Basophils # (Auto) 0.1 Impression Postop day 4 after robotic-assisted laparoscopic sigmoid colectomy for malignant polyp at the sigmoid colon He is doing well. Slightly perplexed at the amount of the Bandar-Ortiz drainage. He put up above 700 ML's in the past 24 hours though this appears serous. He was slightly dehydrated and we had to keep him on IV fluids to first couple of days so he may just be diuresing and third spacing some. sent the fluid for analysis to check for creatinine as well as lipase just in case we had an injury to the ureter or to the pancreas and both them are not high so I don't think her having any urine or pancreatic leakage. Otherwise he seems to be doing well. I told him there is a chance that I might just send him home tomorrow with the drain in come back in the clinic for removal. Pathology is not yet available. Plan / VTE VTE Prophylaxis Ordered?: Yes VTE Exclusion Pharmacological: Thrombocytopenia KARSON LOPEZ MD Jan 26, 2019 10:01
[2019-01-26 14:00] VITALS: BP 147/96
[2019-01-26 14:24] LABS: CREATININE BF 0.5 MG/DL (NOT ESTABLISHED); SOURCE, BODY FLUID CREATININE PERITONEAL; SOURCE, BODY FLUID LIPASE PERITONEAL
[2019-01-26 22:00] VITALS: BP 121/81
[2019-01-27] MEDS: HEPARIN SOD (PORCINE) 5000 UNITS/ML VIAL SC SCH ×2 (05:10→13:18)
[2019-01-27 06:00] VITALS: BP 116/72
[2019-01-27 07:06] LABS: BASO # 0.1 10^3/uL (0.0-0.2); EOS # 0.5 10^3/uL (0.0-0.5); EOS % 5.1 % (0.0-3.0); HEMATOCRIT 41.2 % (42.0-52.0); HEMOGLOBIN 14.2 g/dl (13.5-17.5); LYMPH # 2.4 10^3/uL (1.5-5.0); LYMPH % 26.8 % (24.0-44.0); MEAN CORPUSCULAR HEMOGLOBIN 32.3 pg (27.0-33.0); MEAN CORPUSCULAR HGB CONC 34.5 g/dl (32.0-36.5); MEAN CORPUSCULAR VOLUME 93.6 fl (80.0-96.0); MONO # 0.9 10^3/uL (0.0-0.8); MONO % 10.4 % (0.0-5.0); NEUTROPHILS # 4.9 10^3/uL (1.5-8.5); NEUTROPHILS % 56.4 % (36.0-66.0); PLATELET COUNT, AUTOMATED 178 10^3/uL (150-450); WHITE BLOOD COUNT 8.8 10^3/uL (4.0-10.0)
[2019-01-27 07:21] LABS: BLOOD UREA NITROGEN 8 MG/DL (7-18); CARBON DIOXIDE LEVEL 29 MEQ/L (21-32); CHLORIDE LEVEL 104 MEQ/L (98-107); CREATININE FOR GFR 0.57 MG/DL (0.70-1.30); GLOMERULAR FILTRATION RATE > 60.0 (>56); GLUCOSE, FASTING 108 MG/DL (70-100); POTASSIUM SERUM 3.5 MEQ/L (3.5-5.1); SODIUM LEVEL 138 MEQ/L (136-145)
[2019-01-27] MEDS: PANTOPRAZOLE 40MG INJ (PROTONIX) (C9113) IV SCH (08:47)
[2019-01-27] MEDS: HumaLOG INSULIN (NovoLOG) PER UNIT SC SCH ×2 (08:47→13:18)
[2019-01-27] MEDS: SERTRALINE HCL 50 MG TAB PO SCH (08:48)
[2019-01-27] MEDS: POTASSIUM CHLORIDE 10 MEQ SR TABLET PO SCH (08:48)
[2019-01-27] MEDS: ALVIMOPAN 12 MG CAPSULE (ENTEREG) PO SCH (08:48)
[2019-01-27 08:49] VITALS: BP 131/81
[2019-01-27] MEDS: SENOKOT S TAB PO SCH (08:49)
[2019-01-27] MEDS: LISINOPRIL 10 MG TAB PO SCH (08:49)
[2019-01-27] MEDS ORDERED: PERCOCET PO (13:06)
--- NOTE | 2019-01-28 08:37 | DS.PDOC ---
Discharge Summary General Date of Admission Jan 22, 2019 at 11:34 Date of Discharge 2018 Attending Physician: KARSON LOPEZ MD Discharge Summary PROCEDURES PERFORMED DURING STAY: Robotic Assisted Laparoscopic Sigmoid Colectomy. ADMITTING DIAGNOSES: 1. history of malignant polyps sigmoid colon. DISCHARGE DIAGNOSES: 1. malignant polyp sigmoid colon. COMPLICATIONS/CHIEF COMPLAINT: Sigmoid Colon Cancer. HISTORY OF PRESENT ILLNESS: . HOSPITAL COURSE: . DISCHARGE MEDICATIONS: Please see below. ALLERGIES: Please see below. PHYSICAL EXAMINATION ON DISCHARGE: VITAL SIGNS: Please see below. GENERAL: HEENT: NECK: CARDIOVASCULAR EXAMINATION: RESPIRATORY EXAMINATION: ABDOMINAL EXAMINATION: EXTREMITIES: SKIN: NEUROLOGICAL EXAMINATION: PSYCHIATRIC EXAMINATION: LABORATORY DATA: Please see below. IMAGING: PROGNOSIS: ACTIVITY: [As tolerated]. DIET: DISCHARGE PLAN: DISPOSITION: 01 Home, Self-Care. DISCHARGE INSTRUCTIONS: 1. . ITEMS TO FOLLOWUP ON ON OUTPATIENT: 1. Pathology discussed with patient DISCHARGE CONDITION: [Stable]. TIME SPENT ON DISCHARGE: Greater than minutes. Vital Signs/I&Os Vital Signs Date Time Temp Pulse Resp B/P (MAP) Pulse Ox O2 Delivery O2 Flow Rate FiO2 01/27/19 09:20 16 01/27/19 08:49 131/81 01/27/19 06:00 97.9 55 94 01/25/19 02:35 Nasal Cannula 2.0 I&O- Last 24 Hours up to 6 AM 01/28/19 06:00 Intake Total 1709 ml Output Total 1280 ml Balance 429 ml Laboratory Data Labs 24H Laboratory Tests 2 01/27/19 11:28: Bedside Glucose (Misc Panel) 125H FSBS Laboratory Tests Test 01/27/19 11:28 Range/Units Bedside Glucose (Misc Panel) 125 70-105 MG/DL Discharge Medications Scheduled Hydrochlorothiazide (Hydrochlorothiazide) 12.5 Mg Tablet, 25 MG PO DAILY, (Reported) Lisinopril (Lisinopril) 10 Mg Tablet, 10 MG PO DAILY, (Reported) Metformin HCl (Metformin HCl) 500 Mg Tablet, 500 MG PO BID, (Reported) Omeprazole (Omeprazole) 40 Mg Capsule.dr, 20 MG PO DAILY, (Reported) Sertraline Hcl (Zoloft) 50 Mg Tablet, 50 MG PO DAILY, (Reported) Scheduled PRN Oxycodone/Acetaminophen (Oxycodone-Acetaminophen 5-325) 1 Each Tablet, 1-2 TAB PO Q4HP PRN for MODERATE PAIN (PS 5-7) Allergies Coded Allergies: No Known Allergies (Verified , 11/30/02) KARSON LOPEZ MD Jan 28, 2019 08:37
== END 2019-01-27 14:55 | disposition home or self-care (01) | DRG 221 ==
LOC: M OR 11:34 → M MSPAV 21:24
PROVIDERS: ADMIT Surgery; ATTEND Surgery
PROC: 8E0W4CZ Robotic Assisted Procedure of Trunk Region, Percutaneous Endoscopic Approach (ICD-10-PCS; 2019-01-22)
PROC: 0DBN4ZZ Excision of Sigmoid Colon, Percutaneous Endoscopic Approach (ICD-10-PCS; principal; 2019-01-22 13:00)
DX: C18.7 Malignant neoplasm of sigmoid colon (principal); K70.0 Alcoholic fatty liver; I10 Essential (primary) hypertension; G47.33 Obstructive sleep apnea (adult) (pediatric); Z79.899 Other long term (current) drug therapy; K21.9 Gastro-esophageal reflux disease without esophagitis; E11.9 Type 2 diabetes mellitus without complications; E78.5 Hyperlipidemia, unspecified; F34.1 Dysthymic disorder; J30.9 Allergic rhinitis, unspecified

== ENCOUNTER 2019-01-31 14:20 | Emergency (ER) | payer BC ==
[~2019-01-31] VITALS: Ht 177.8 cm; Wt 102.3 kg
[2019-01-31 14:20] VITALS: BP 147/90
[~2019-01-31 14:20] MED LIST changes: -ALVIMOPAN 12 MG CAPSULE (ENTEREG) PO ONE; -HEPARIN SOD (PORCINE) 5000 UNITS/ML VIAL SQ ONE; -LR 1,000 ML IV ONE; +PERCOCET PO; -cefoTEtan DISODIUM 2 GM in D5W MINI-BAG PLUS 50 ML IV ONE; -metroNIDAZOLE 500 MG in APPROPRIATE DILUENT 1 EA IV ONE
== END 2019-01-31 16:02 | disposition home or self-care (01) ==
LOC: M ED 14:20
DX: T85.528A Displacement of other gastrointestinal prosthetic devices, implants and grafts, initial encounter (principal); E11.9 Type 2 diabetes mellitus without complications; I10 Essential (primary) hypertension; Z79.84 Long term (current) use of oral hypoglycemic drugs; Z79.891 Long term (current) use of opiate analgesic; Z79.899 Other long term (current) drug therapy; Z87.442 Personal history of urinary calculi

== ENCOUNTER 2019-11-12 10:32 | Emergency (ER) | payer BC ==
[~2019-11-12] VITALS: Ht 177.8 cm; Wt 98.6 kg
[~2019-11-12 10:32] MED LIST changes: -OMEP40CA2 PO; +OMEP40CA97 PO
[2019-11-12 12:00] LABS: BASO # 0.1 10^3/uL (0.0-0.2); EOS # 0.3 10^3/uL (0.0-0.5); EOS % 3.5 % (0.0-3.0); HEMATOCRIT 40.8 % (42.0-52.0); HEMOGLOBIN 13.8 g/dl (13.5-17.5); LYMPH # 1.8 10^3/uL (1.5-5.0); MEAN CORPUSCULAR HEMOGLOBIN 32.6 pg (27.0-33.0); MEAN CORPUSCULAR HGB CONC 33.8 g/dl (32.0-36.5); MEAN CORPUSCULAR VOLUME 96.5 fl (80.0-96.0); MONO # 0.8 10^3/uL (0.0-0.8); NEUTROPHILS # 4.3 10^3/uL (1.5-8.5); NEUTROPHILS % 59.1 % (36.0-66.0); PLATELET COUNT, AUTOMATED 176 10^3/uL (150-450); RED BLOOD COUNT 4.23 10^6/uL (4.30-6.10); WHITE BLOOD COUNT 7.2 10^3/uL (4.0-10.0)
[2019-11-12 12:12] LABS: INR 1.16; PROTHROMBIN TIME 14.5 SECONDS (11.8-14.0)
[2019-11-12 12:42] LABS: ALBUMIN 3.2 GM/DL (3.2-5.2); ALT/SGPT 42 U/L (12-78); BILIRUBIN,DIRECT 0.4 MG/DL (0.0-0.2); BILIRUBIN,TOTAL 0.8 MG/DL (0.2-1.0); BLOOD UREA NITROGEN 9 MG/DL (7-18); CALCIUM LEVEL 8.5 MG/DL (8.5-10.1); CARBON DIOXIDE LEVEL 28 MEQ/L (21-32); CHLORIDE LEVEL 104 MEQ/L (98-107); CREATININE FOR GFR 0.56 MG/DL (0.70-1.30); ETHYL ALCOHOL (ETHANOL) 0.003 % (0.000-0.010); GLOMERULAR FILTRATION RATE > 60.0 (>56); GLUCOSE, FASTING 131 MG/DL (70-100); LIPASE 293 U/L (73-393); SODIUM LEVEL 138 MEQ/L (136-145); TOTAL PROTEIN 7.4 GM/DL (6.4-8.2)
[2019-11-12 13:23] LABS: MAGNESIUM LEVEL 1.6 MG/DL (1.8-2.4)
[2019-11-12] MEDS: METOPROLOL 5 MG/5 ML VIAL IV SCH ×9 (13:25→17:03)
[2019-11-12] MEDS ORDERED: METOPROLOL TART 50 MG TAB PO ONE (14:00)
[2019-11-12] MEDS ORDERED: ISOVUE-370 76% 100ML VIAL As Ordered ONE (14:10)
--- NOTE | 2019-11-12 14:45 | REP ---
Clinical: History of carcinoma with atrial fibrillation and chest pain. Technique: Axial contrast enhanced chest CT using pulmonary embolus technique including multiplanar re-formations. 75 ml Isovue 370 intravenous contrast material administered without complication. Findings: Satisfactory enhancement of the pulmonary vasculature is achieved and no filling defects are identified to suggest pulmonary embolus. Thoracic aorta demonstrates minimal atherosclerotic changes without aneurysm or dissection. Heart and pericardium are grossly normal. Bilateral lung hansen are well-aerated and clear. No consolidation, obvious nodule or mass lesion. No effusion. No pneumothorax. Tracheobronchial tree is patent. Surrounding musculoskeletal structures are intact. Limited upper abdomen demonstrates normal bilateral adrenal glands and evidence for cholelithiasis. Hepatomegaly and possible cirrhosis suggested. Impression: 1. No evidence for pulmonary embolus. 2. No acute mediastinal or pleuroparenchymal process appreciated. 3. Hepatomegaly and evidence to suggest cirrhosis. 4. Cholelithiasis. Electronically Signed by Deangelo Powers MD 11/12/2019 02:36 P
[2019-11-12] MEDS ORDERED: ASPI-264 PO (15:04)
[2019-11-12] MEDS ORDERED: METO25TA4 PO (15:04)
[2019-11-12] MEDS ORDERED: METOPROLOL 5 MG/5 ML VIAL As Ordered ONE (15:53)
[2019-11-12] MEDS ORDERED: NITROGLYCERIN 0.4 MG SUBL TABLET As Ordered ONE (16:44)
[2019-11-12] MEDS ORDERED: ASPIRIN 81 MG CHEW TABLET As Ordered ONE (16:44)
[2019-11-12 17:01] VITALS: BP 144/76
--- NOTE | 2019-11-12 18:30 | ECGEPIP ---
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
--- NOTE | 2019-11-12 18:34 | ECGEPIP ---
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
== END 2019-11-12 17:25 | disposition home or self-care (01) ==
LOC: M ED 10:32
DX: I48.91 Unspecified atrial fibrillation (principal); F10.10 Alcohol abuse, uncomplicated; K74.69 Other cirrhosis of liver; G47.33 Obstructive sleep apnea (adult) (pediatric); E66.9 Obesity, unspecified; Z99.89 Dependence on other enabling machines and devices; Z79.899 Other long term (current) drug therapy; Z79.84 Long term (current) use of oral hypoglycemic drugs; Z79.82 Long term (current) use of aspirin
CPT/HCPCS: 36415; 36600; 71275; 80048; 80076; 82803; 83690; 83735; 85025; 85610; 93005; 93041; 96374; 96376; 99285; G0480; Q9967

== ENCOUNTER 2020-08-23 07:34 | Inpatient (IN) | payer BC ==
[~2020-08-23] VITALS: Ht 177.8 cm; Wt 113.4 kg
[~2020-08-23 07:34] MED LIST changes: +ASPI-264 PO; +LISI10TA22 PO; -LISI10TA4 PO; +METO25TA4 PO
[2020-08-23] MEDS ORDERED: ELIQ5TAB PO (07:53)
[2020-08-23] MEDS ORDERED: HYDR-3490 PO (07:53)
[2020-08-23] MEDS ORDERED: SERT50TA29 PO (07:53)
[2020-08-23] MEDS ORDERED: OMEP1CAP73 PO (07:53)
[2020-08-23] MEDS ORDERED: METOPROLOL TART 25 MG TABLET PO ONE ×2 (08:15→10:05)
--- NOTE | 2020-08-23 08:33 | REP ---
INDICATION: DYSPNEA/COUGH. COMPARISON: Comparison chest CT study November 12, 2019. TECHNIQUE: Portable upright AP chest radiograph. FINDINGS: Patient is status post lower cervical spine fusion plating. Monitoring electrodes are seen. Today's chest x-ray demonstrates increased interstitial markings predominantly on the right side peripherally. No pleural effusion is seen. Heart size is borderline. The increased interstitial markings appear to be a new finding compared to the prior chest CT.. IMPRESSION: Prominent interstitial markings predominantly in the right base, edema versus early interstitial infiltrate. Borderline heart size.. <Electronically signed by Ronn Ellis > 08/23/20 [id number]
[2020-08-23 08:46] LABS: BASO # 0.1 10^3/uL (0.0-0.2); BASO % 1.4 % (0.0-1.0); EOS # 0.2 10^3/uL (0.0-0.5); EOS % 2.6 % (0.0-3.0); HEMATOCRIT 42.5 % (42.0-52.0); HEMOGLOBIN 14.3 g/dl (13.5-17.5); LYMPH # 1.8 10^3/uL (1.5-5.0); LYMPH % 23.1 % (24.0-44.0); MEAN CORPUSCULAR HEMOGLOBIN 33.4 pg (27.0-33.0); MEAN CORPUSCULAR HGB CONC 33.6 g/dl (32.0-36.5); MEAN CORPUSCULAR VOLUME 99.3 fl (80.0-96.0); MONO # 0.8 10^3/uL (0.0-0.8); MONO % 10.3 % (2.0-8.0); NEUTROPHILS # 4.9 10^3/uL (1.5-8.5); NEUTROPHILS % 62.1 % (36.0-66.0); PLATELET COUNT, AUTOMATED 164 10^3/uL (150-450); RED BLOOD COUNT 4.28 10^6/uL (4.30-6.10); WHITE BLOOD COUNT 7.8 10^3/uL (4.0-10.0)
[2020-08-23] MEDS: METOPROLOL 5 MG/5 ML VIAL IV SCH ×6 (08:50→12:20)
[2020-08-23 08:53] LABS: INR 1.27; PROTHROMBIN TIME 16.2 SECONDS (12.5-14.3)
[2020-08-23 09:11] LABS: ALBUMIN 3.1 GM/DL (3.2-5.2); BILIRUBIN,DIRECT 0.6 MG/DL (0.0-0.2); BILIRUBIN,TOTAL 1.3 MG/DL (0.2-1.0); MAGNESIUM LEVEL 1.6 MG/DL (1.8-2.4); THYROID STIMULATING HORMONE 0.774 uIU/ML (0.358-3.740); TOTAL PROTEIN 7.7 GM/DL (6.4-8.2)
[2020-08-23] MEDS ORDERED: ISOVUE-370 76% 100ML VIAL As Ordered ONE (09:25)
--- NOTE | 2020-08-23 09:47 | REP ---
INDICATION: sob COMPARISON: 11/12/2019 TECHNIQUE: Axial contrast enhanced images from the thoracic inlet to the upper abdomen using pulmonary embolus technique with multiplanar re-formations. 75 ml Isovue 370 intravenous contrast material administered without complication. This CT examination was performed using the following dose reduction techniques: Automated exposure control, adjustment of mA and/or kv according to the patient's size, and use of iterative reconstruction technique. FINDINGS: Satisfactory enhancement of the pulmonary vasculature is achieved and no filling defects are identified to suggest pulmonary embolus. Further evaluation of the mediastinum demonstrates relatively normal thoracic aorta, heart and pericardium. Mild atherosclerotic changes noted to the aorta and coronary arteries. The bilateral lung hansen are well aerated and essentially clear without consolidation, pleural effusion or pneumothorax. Very subtle right basilar atelectasis cannot be excluded. Tracheobronchial tree is patent. No nodule or mass lesion is identified. No adenopathy noted. Surrounding musculoskeletal structures intact IMPRESSION: No evidence for pulmonary embolus. Very minimal right basilar atelectasis cannot be excluded. No focal consolidation. <Electronically signed by Deangelo Powers > 08/23/20 0974
[2020-08-23] MEDS ORDERED: MAG SULF 1GM/100ML (MAG RUN) 1 GM in IV 1 EA IV ONE ×2 (09:50→12:00)
[2020-08-23] MEDS ORDERED: FUROSEMIDE 20MG/2ML VIAL (J1940) IV ONE (10:05)
[2020-08-23] MEDS ORDERED: METO1TAB87 PO (10:23)
[2020-08-23] MEDS ORDERED: METOPROLOL 5 MG/5 ML VIAL IV STA (10:49)
[2020-08-23 11:04] LABS: RSV AMPLIFICATION NEGATIVE (NEGATIVE)
[2020-08-23] MEDS ORDERED: ACETAMINOPHEN TAB 650MG DOSE (2X325MG) PO PRN (11:05)
[2020-08-23] MEDS ORDERED: GLUCOSE 4GM CHEW TABLET PO PRN (11:20)
[2020-08-23] MEDS ORDERED: GLUCAGON INJ 1MG VIAL SC PRN (11:20)
[2020-08-23] MEDS ORDERED: DEXTROSE 50% 50 ML SYRINGE IV PRN (11:20)
--- NOTE | 2020-08-23 11:31 | HPEPDOC ---
General Date of Admission 08/23/20 Date of Service: Aug 23, 2020 Chief Complaint The patient is a 59-year-old male admitted with a reason for visit of SOB. Source: Patient Exam Limitations: No limitations Timing/Duration: Day(s) Severity: Moderate History of Present Illness Patient is 59 years old male with past medical history of atrial fibrillation, hypertension, diabetes type 2, obesity presented to the hospital with shortness of breath. Patient stated that he has been having increased shortness of breath for past few days. He stated that his shortness of breath was associated with orthopnea. Patient denied any cough, fever, chills, diarrhea. 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 Also patient stated that he drinks alcohol on the daily basis, 2 to 3 shots of vodka for many years. In ER patient was found to have atrial fibrillation with rapid ventricular rate, afebrile, no leukocytosis, magnesium 1.6, BNP 285, CTA showed no pulmonary embolus. EKG showed no acute ischemic changes Home Medications Scheduled Apixaban (Eliquis) 5 Mg Tablet, 5 MG PO BID, (Reported) Hydrochlorothiazide (Hydrochlorothiazide) 25 Mg Tablet, 12.5 MG PO DAILY, (Reported) RECENT DECREASE BY Lisinopril (Lisinopril) 10 Mg Tablet, 10 MG PO DAILY, (Reported) Metformin HCl (Metformin HCl) 500 Mg Tablet, 1,000 MG PO BID, (Reported) Metoprolol Tartrate (Metoprolol Tartrate) 25 Mg Tablet, 25 MG PO BID, (Reported) Omeprazole (Omeprazole) 20 Mg Capsule., 20 MG PO Q2D, (Reported) Sertraline HCl (Sertraline HCl) 50 Mg Tablet, 25 MG PO DAILY, (Reported) Allergies Coded Allergies: No Known Allergies (Verified , 11/30/02) Past Medical History Medical History Hypertension, atrial fibrillation, type 2 diabetes, GERD, anxiety,sigmoid cancer Surgical History Sigmoid resection secondary to sigmoid cancer Family History Father had coronary artery diseases, mother from cancer Social History * Smoker: Denies Alcohol: heavy Drugs: denies A-FIB/CHADSVASC A-FIB History Current/History of A-Fib/PAF?: Yes Current PO Anticoag Therapy: Yes Review of Systems Constitutional: Denies: Chills, Fever Eyes: Denies: Pain ENT: Denies: Head Aches Skin: Denies: Rash, Lesions Pulmonary: Reports: Dyspnea; Denies: Cough Cardiovascular: Reports: Orthopnea; Denies: Chest Pain Gastrointestinal: Denies: Nausea Genitourinary: Denies: Dysuria, Frequency Hematologic: Denies: Bruising Endocrine: Denies: Polydipsia, Polyphagia Musculoskeletal: Denies: Neck Pain Neurological: Denies: Weakness Psych: Reports: Anxiety Physical Examination General Exam: Positive: Alert, Cooperative Eye Exam: Positive: PERRLA, Conjunctiva & lids normal ENT Exam: Positive: Atraumatic Neck Exam: Positive: Supple; Negative: JVD Chest Exam: Positive: Clear to auscultation Heart Exam: Positive: Irregular Rhythm Telemetry: Positive: Atrial fibrillation Abdomen Exam: Positive: Normal bowel sounds Extremity Exam: Negative: Clubbing Skin Exam: Positive: Nl turgor and temperature Neuro Exam: Positive: Strength at 5/5 X4 ext Psych Exam: Positive: Anxiety, Oriented x 3 Vital Signs Vital Signs Date Time Temp Pulse Resp B/P (MAP) Pulse Ox O2 Delivery O2 Flow Rate FiO2 08/23/20 10:58 108 158/96 08/23/20 09:49 97 08/23/20 09:45 20 08/23/20 07:48 98.2 Room Air Laboratory Data Labs 24H Laboratory Tests 2 08/23/20 08:20: Immature Granulocyte % (Auto) 0.5, Neutrophils (%) (Auto) 62.1, Lymphocytes (%) (Auto) 23.1L, Monocytes (%) (Auto) 10.3H, Eosinophils (%) (Auto) 2.6, Basophils (%) (Auto) 1.4H, Neutrophils # (Auto) 4.9, Lymphocytes # (Auto) 1.8, Monocytes # (Auto) 0.8, Eosinophils # (Auto) 0.2, Basophils # (Auto) 0.1, Nucleated Red Blood Cells % (auto) 0.0, Prothrombin Time 16.2H, Prothromb Time International Ratio 1.27, Magnesium Level 1.6L, Total Bilirubin 1.3H, Direct Bilirubin 0.6H, Aspartate Amino Transf (AST/SGOT) 42H, Alanine Aminotransferase (ALT/SGPT) 33, Alkaline Phosphatase 90, ES-Prb-V-Type Natriuretic Peptide 285H, Total Protein 7.7, Albumin 3.1L, Albumin/Globulin Ratio 0.7, Thyroid Stimulating Hormone (TSH) 0.774 08/23/20 08:25: POC Glucose (Misc Panel) 158H, POC Sodium (Misc Panel) 139, POC Potassium (Misc Panel) 4.4, POC Chloride (Misc Panel) 101, POC Total CO2 (Misc Panel) 31.0H, POC Blood Urea Nitrogen (Misc Panel 10, POC Ionized Calcium (Misc Panel) 4.6, POC Creatinine (Misc Panel) 0.6, POC Hematocrit (Misc Panel) 45.0 08/23/20 08:27: POC Troponin I (Misc) 0.01 08/23/20 10:19: Coronavirus (COVID-19)(PCR) NEGATIVE, Influenza Type A (RT-PCR) NEGATIVE, Influenza Type B (RT-PCR) NEGATIVE, Respiratory Syncytial Virus (PCR) NEGATIVE CBC/BMP Laboratory Tests 08/23/20 08:20 Assessment/Plan Patient is 59 years old male with past medical history of atrial fibrillation, hypertension, diabetes type 2, obesity presented to the hospital with shortness of breath. Patient stated that he has been having increased shortness of breath for past few days. He stated that his shortness of breath was associated with orthopnea. Patient denied any cough, fever, chills, diarrhea. 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 Also patient stated that he drinks alcohol on the daily basis, 2 to 3 shots of vodka for many years. In ER patient was found to have atrial fibrillation with rapid ventricular rate, afebrile, no leukocytosis, magnesium 1.6, BNP 285, CTA showed no pulmonary embolus. EKG showed no acute ischemic changes Problems (1) Atrial fibrillation with RVR Status: Acute Problem Text: Multifactorial. Most likely patient noncompliant to his medication. Also there is possibility for alcohol withdrawal which can contribute to rapid ventricular rate. Patient is a daily drinker. 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
[2020-08-23] MEDS: THIAMINE 100 MG TAB PO SCH ×2 (15:14→21:44)
[2020-08-23] MEDS: FOLIC ACID 1 MG TAB PO SCH (15:14)
[2020-08-23] MEDS: HumaLOG INSULIN (NovoLOG) PER UNIT SC SCH ×3 (15:14→21:00)
[2020-08-23] MEDS: ATORVASTATIN 20 MG TAB PO SCH (15:15)
[2020-08-23] MEDS: MULTIVITAMINS/MINERALS THERAP 1 TAB PO SCH (15:15)
[2020-08-23 15:30] VITALS: BP 133/86
[2020-08-23] MEDS: METOPROLOL TART 50 MG TAB PO SCH ×2 (15:49→21:00)
[2020-08-23] MEDS: LORazepam 2 MG TAB PO PRN ×2 (17:31→21:44)
--- NOTE | 2020-08-23 18:00 | ECGEPIP ---
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
[2020-08-23 21:21] VITALS: BP 98/67
[2020-08-23] MEDS: APIXABAN 5 MG TAB (ELIQUIS) PO SCH (21:44)
[2020-08-24] VITALS (13 sets, daily range): BP systolic 92–216; BP diastolic 60–104
[2020-08-24 05:50] LABS: HEMATOCRIT 44.6 % (42.0-52.0); HEMOGLOBIN 14.8 g/dl (13.5-17.5); MEAN CORPUSCULAR HEMOGLOBIN 33.3 pg (27.0-33.0); MEAN CORPUSCULAR HGB CONC 33.2 g/dl (32.0-36.5); MEAN CORPUSCULAR VOLUME 100.5 fl (80.0-96.0); PLATELET COUNT, AUTOMATED 152 10^3/uL (150-450); RED BLOOD COUNT 4.44 10^6/uL (4.30-6.10); WHITE BLOOD COUNT 9.7 10^3/uL (4.0-10.0)
[2020-08-24] MEDS: LORazepam 2 MG TAB PO PRN ×4 (06:03→20:40)
[2020-08-24 06:15] LABS: ALT/SGPT 30 U/L (12-78); BILIRUBIN,TOTAL 1.9 MG/DL (0.2-1.0); BLOOD UREA NITROGEN 12 MG/DL (7-18); CALCIUM LEVEL 9.3 MG/DL (8.5-10.1); CARBON DIOXIDE LEVEL 32 MEQ/L (21-32); CHLORIDE LEVEL 101 MEQ/L (98-107); CREATININE FOR GFR 0.72 MG/DL (0.70-1.30); GLOMERULAR FILTRATION RATE > 60.0 (>56); GLUCOSE, FASTING 137 MG/DL (70-100); MAGNESIUM LEVEL 1.9 MG/DL (1.8-2.4); POTASSIUM SERUM 3.9 MEQ/L (3.5-5.1); SODIUM LEVEL 136 MEQ/L (136-145); TOTAL PROTEIN 7.8 GM/DL (6.4-8.2)
[2020-08-24] MEDS: FOLIC ACID 1 MG TAB PO SCH (08:12)
[2020-08-24] MEDS: MULTIVITAMINS/MINERALS THERAP 1 TAB PO SCH (08:12)
[2020-08-24] MEDS: SERTRALINE HCL 25 MG TABLET PO SCH (08:12)
[2020-08-24] MEDS: THIAMINE 100 MG TAB PO SCH ×2 (08:12→20:22)
[2020-08-24] MEDS: APIXABAN 5 MG TAB (ELIQUIS) PO SCH ×2 (08:12→20:22)
[2020-08-24] MEDS: ATORVASTATIN 20 MG TAB PO SCH (08:13)
[2020-08-24] MEDS: HumaLOG INSULIN (NovoLOG) PER UNIT SC SCH ×4 (08:13→20:46)
[2020-08-24] MEDS: hydroCHLOROthiazide 12.5 MG CAPSULE PO SCH (08:13)
[2020-08-24] MEDS: METOPROLOL TART 50 MG TAB PO SCH ×3 (08:16→20:23)
[2020-08-24] MEDS ORDERED: SLF 3 ML SYR IV PRN (08:55)
[2020-08-24] MEDS ORDERED: METOPROLOL 5 MG/5 ML VIAL IV PRN (12:40)
[2020-08-24] MEDS: SLF 3 ML SYR IV SCH ×2 (14:01→20:47)
--- NOTE | 2020-08-24 14:59 | IPNPDOC ---
Text Note Date of Service The patient was seen on 08/24/20. NOTE Subjective: CIWA score 10 in the morning. Patient alert, oriented but mildly agitated. Denies fever, chills, chest pain, diarrhea or dysuria Objective: GENERAL APPEARANCE: In moderate distress, obese male HEENT: no scleral icterus, no JVD, EOMI CARDIOVASCULAR: Irregularly irregular LUNGS: Diminished lung sounds bilaterally ABDOMEN: soft & not tender w palpitation MUSCULOSKELETAL: no cyanosis, no swelling INTEGUMENT: no generalized pallor NEUROLOGICAL: cranial nerve function from 2-12 intact intact, follows commands, speech not dysarthric Assessment/Plan Patient is 59 years old male with past medical history of atrial fibrillation, hypertension, diabetes type 2, obesity presented to the hospital with shortness of breath. Patient stated that he has been having increased shortness of breath for past few days. He stated that his shortness of breath was associated with orthopnea. Patient denied any cough, fever, chills, diarrhea. 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 Also patient stated that he drinks alcohol on the daily basis, 2 to 3 shots of vodka for many years. In ER patient was found to have atrial fibrillation with rapid ventricular rate, afebrile, no leukocytosis, magnesium 1.6, BNP 285, CTA showed no pulmonary embolus. EKG showed no acute ischemic changes Problems Atrial fibrillation with RVR Multifactorial. Most likely patient noncompliant to his medication. Also there is possibility for alcohol withdrawal which can contribute to rapid ventricular rate. Patient is a daily drinker. 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
[2020-08-24] MEDS: LORazepam 2 MG TAB PO SCH (18:00)
[2020-08-25] VITALS (7 sets, daily range): BP systolic 130–144; BP diastolic 90–100
[2020-08-25] MEDS: LORazepam 2 MG TAB PO SCH ×3 (00:34→12:08)
[2020-08-25 06:07] LABS: BASO # 0.1 10^3/uL (0.0-0.2); BASO % 1.3 % (0.0-1.0); EOS # 0.3 10^3/uL (0.0-0.5); EOS % 3.4 % (0.0-3.0); HEMATOCRIT 44.8 % (42.0-52.0); HEMOGLOBIN 14.9 g/dl (13.5-17.5); LYMPH # 2.1 10^3/uL (1.5-5.0); LYMPH % 22.8 % (24.0-44.0); MEAN CORPUSCULAR HEMOGLOBIN 33.5 pg (27.0-33.0); MEAN CORPUSCULAR HGB CONC 33.3 g/dl (32.0-36.5); MEAN CORPUSCULAR VOLUME 100.7 fl (80.0-96.0); MONO # 0.9 10^3/uL (0.0-0.8); NEUTROPHILS # 5.8 10^3/uL (1.5-8.5); NEUTROPHILS % 62.2 % (36.0-66.0); PLATELET COUNT, AUTOMATED 163 10^3/uL (150-450); RED BLOOD COUNT 4.45 10^6/uL (4.30-6.10); WHITE BLOOD COUNT 9.3 10^3/uL (4.0-10.0)
[2020-08-25] MEDS: SLF 3 ML SYR IV SCH ×3 (06:14→22:00)
[2020-08-25 06:27] LABS: ALBUMIN 2.9 GM/DL (3.2-5.2); ALT/SGPT 28 U/L (12-78); BILIRUBIN,TOTAL 1.6 MG/DL (0.2-1.0); BLOOD UREA NITROGEN 13 MG/DL (7-18); CALCIUM LEVEL 8.9 MG/DL (8.5-10.1); CARBON DIOXIDE LEVEL 29 MEQ/L (21-32); CHLORIDE LEVEL 104 MEQ/L (98-107); CREATININE FOR GFR 0.64 MG/DL (0.70-1.30); GLOMERULAR FILTRATION RATE > 60.0 (>56); GLUCOSE, FASTING 121 MG/DL (70-100); MAGNESIUM LEVEL 1.8 MG/DL (1.8-2.4); POTASSIUM SERUM 3.8 MEQ/L (3.5-5.1); SODIUM LEVEL 138 MEQ/L (136-145); TOTAL PROTEIN 7.4 GM/DL (6.4-8.2)
[2020-08-25] MEDS: HumaLOG INSULIN (NovoLOG) PER UNIT SC SCH ×4 (07:30→20:28)
[2020-08-25] MEDS: MULTIVITAMINS/MINERALS THERAP 1 TAB PO SCH (08:43)
[2020-08-25] MEDS: SERTRALINE HCL 25 MG TABLET PO SCH (08:44)
[2020-08-25] MEDS: OMEPRAZOLE 20 MG CAP PO SCH (08:44)
[2020-08-25] MEDS: APIXABAN 5 MG TAB (ELIQUIS) PO SCH ×2 (08:44→20:31)
[2020-08-25] MEDS: FOLIC ACID 1 MG TAB PO SCH (08:44)
[2020-08-25] MEDS: hydroCHLOROthiazide 12.5 MG CAPSULE PO SCH (08:44)
[2020-08-25] MEDS: ATORVASTATIN 20 MG TAB PO SCH (08:44)
[2020-08-25] MEDS: THIAMINE 100 MG TAB PO SCH ×2 (08:44→20:31)
[2020-08-25] MEDS: METOPROLOL TART 50 MG TAB PO SCH ×4 (08:45→20:31)
--- NOTE | 2020-08-25 12:07 | ECHO ---
DATE OF PROCEDURE: 08/24/2020 Age: 59 Gender: Male Height: 178 cm Weight: 120 kg REFERRING PHYSICIAN: Keshawn Ogden DO. INDICATION: Abnormal ECG. MEASUREMENTS: 2D Measurements: Left atrium 4.8 cm Interventricular septum 1.44 cm Left ventricle diastole 4.7 cm Posterior wall 1.42 cm Aortic root 3.6 cm Inferior vena cava 2.0 cm Doppler Measurements: No aortic stenosis No aortic regurgitation Aortic valve velocity 197 cm/s LVOT velocity 72.5 cm/s Very mild mitral regurgitation No mitral stenosis Mitral E velocity 84.4 cm/s Mitral deceleration time 148 msec No tricuspid regurgitation No pulmonic regurgitation Pulmonary artery acceleration time 95 msec MITRAL ANNULAR TISSUE DOPPLER E prime septal 9.3 cm/s, E prime lateral 12.9 cm/s DESCRIPTION: Rhythm was atrial fibrillation. Image quality was fair. No pericardial effusion. This was a 2D, M-mode, color flow Doppler, and pulsed wave Doppler examination including mitral annular tissue Doppler. CONCLUSIONS: 1. Mild concentric left ventricle hypertrophy. Normal regional LV wall motion and wall thickening. Normal LV systolic function. LVEF 65% by visual estimate. Unable to adequately determine LV diastolic function in the setting of atrial fibrillation. 2. Moderate left atrial dilatation. 3. Moderate aortic valve sclerosis of a 3-cusp aortic valve. No aortic regurgitation or stenosis. 4. Suggestive of mild elevation of pulmonary artery systolic pressure. 5. Otherwise normal appearing echocardiogram Doppler findings. MTDD
--- NOTE | 2020-08-25 13:35 | IPNPDOC ---
Text Note Date of Service The patient was seen on 08/25/20. NOTE Subjective: Patient is somnolent in the morning, CIWA score 1. Heart rate around 100- 105. Patient denied any chest pain Objective: GENERAL APPEARANCE: In moderate distress, obese male HEENT: no scleral icterus, no JVD, EOMI CARDIOVASCULAR: Irregularly irregular LUNGS: Diminished lung sounds bilaterally ABDOMEN: soft & not tender w palpitation MUSCULOSKELETAL: no cyanosis, no swelling INTEGUMENT: no generalized pallor NEUROLOGICAL: cranial nerve function from 2-12 intact intact, follows commands, speech not dysarthric Assessment/Plan Patient is 59 years old male with past medical history of atrial fibrillation, hypertension, diabetes type 2, obesity presented to the hospital with shortness of breath. Patient stated that he has been having increased shortness of breath for past few days. He stated that his shortness of breath was associated with orthopnea. Patient denied any cough, fever, chills, diarrhea. 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 Also patient stated that he drinks alcohol on the daily basis, 2 to 3 shots of vodka for many years. In ER patient was found to have atrial fibrillation with rapid ventricular rate, afebrile, no leukocytosis, magnesium 1.6, BNP 285, CTA showed no pulmonary embolus. EKG showed no acute ischemic changes Problems Atrial fibrillation with RVR Multifactorial. Most likely patient noncompliant to his medication. Also there is possibility for alcohol withdrawal which can contribute to rapid ventricular rate. Patient is a daily drinker. I increased the dose of Metoprolol 50 mg to 4 times a day Lopressor IV when necessary Echo showed Mild concentric left ventricle hypertrophy. Normal regional LV wall motion and wall thickening. Normal LV systolic function. 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
[2020-08-25] MEDS: LORazepam 2 MG TAB PO PRN (20:32)
[2020-08-26] VITALS (9 sets, daily range): BP systolic 104–155; BP diastolic 71–97
[2020-08-26] MEDS: LORazepam 2 MG TAB PO PRN ×2 (04:30→09:58)
[2020-08-26 05:38] LABS: BASO # 0.1 10^3/uL (0.0-0.2); BASO % 1.2 % (0.0-1.0); EOS # 0.3 10^3/uL (0.0-0.5); EOS % 3.2 % (0.0-3.0); HEMATOCRIT 46.1 % (42.0-52.0); HEMOGLOBIN 15.4 g/dl (13.5-17.5); LYMPH # 2.1 10^3/uL (1.5-5.0); LYMPH % 19.9 % (24.0-44.0); MEAN CORPUSCULAR HEMOGLOBIN 32.7 pg (27.0-33.0); MEAN CORPUSCULAR HGB CONC 33.4 g/dl (32.0-36.5); MEAN CORPUSCULAR VOLUME 97.9 fl (80.0-96.0); MONO # 1.1 10^3/uL (0.0-0.8); NEUTROPHILS # 6.7 10^3/uL (1.5-8.5); NEUTROPHILS % 64.5 % (36.0-66.0); PLATELET COUNT, AUTOMATED 169 10^3/uL (150-450); RED BLOOD COUNT 4.71 10^6/uL (4.30-6.10); WHITE BLOOD COUNT 10.3 10^3/uL (4.0-10.0)
[2020-08-26] MEDS: SLF 3 ML SYR IV SCH ×3 (06:05→22:09)
[2020-08-26 06:15] LABS: ALBUMIN 2.9 GM/DL (3.2-5.2); ALT/SGPT 32 U/L (12-78); BILIRUBIN,TOTAL 1.7 MG/DL (0.2-1.0); BLOOD UREA NITROGEN 15 MG/DL (7-18); CALCIUM LEVEL 8.6 MG/DL (8.5-10.1); CARBON DIOXIDE LEVEL 27 MEQ/L (21-32); CHLORIDE LEVEL 102 MEQ/L (98-107); CREATININE FOR GFR 0.66 MG/DL (0.70-1.30); GLOMERULAR FILTRATION RATE > 60.0 (>56); GLUCOSE, FASTING 107 MG/DL (70-100); MAGNESIUM LEVEL 1.7 MG/DL (1.8-2.4); POTASSIUM SERUM 3.9 MEQ/L (3.5-5.1); SODIUM LEVEL 136 MEQ/L (136-145); TOTAL PROTEIN 7.3 GM/DL (6.4-8.2)
[2020-08-26] MEDS: HumaLOG INSULIN (NovoLOG) PER UNIT SC SCH ×4 (07:30→21:58)
[2020-08-26] MEDS ORDERED: MAG SULF 1GM/100ML (MAG RUN) 1 GM in IV 1 EA IV ONE (08:00)
[2020-08-26] MEDS: hydroCHLOROthiazide 12.5 MG CAPSULE PO SCH (09:57)
[2020-08-26] MEDS: ATORVASTATIN 20 MG TAB PO SCH (09:58)
[2020-08-26] MEDS: APIXABAN 5 MG TAB (ELIQUIS) PO SCH ×2 (09:58→21:55)
[2020-08-26] MEDS: SERTRALINE HCL 25 MG TABLET PO SCH (09:59)
[2020-08-26] MEDS: METOPROLOL TART 50 MG TAB PO SCH ×4 (09:59→21:55)
[2020-08-26] MEDS: FOLIC ACID 1 MG TAB PO SCH (09:59)
[2020-08-26] MEDS: MULTIVITAMINS/MINERALS THERAP 1 TAB PO SCH (09:59)
--- NOTE | 2020-08-26 15:15 | IPNPDOC ---
Text Note Date of Service The patient was seen on 08/26/20. NOTE Subjective: Patient is somnolent in the morning, complains of generalized weak ness, CIWA score 13. Heart rate around 105. Patient denied any chest pain Objective: GENERAL APPEARANCE: In moderate distress, obese male HEENT: no scleral icterus, no JVD, EOMI CARDIOVASCULAR: Irregularly irregular LUNGS: Diminished lung sounds bilaterally ABDOMEN: soft & not tender w palpitation MUSCULOSKELETAL: no cyanosis, no swelling INTEGUMENT: no generalized pallor NEUROLOGICAL: cranial nerve function from 2-12 intact intact, follows commands, speech not dysarthric Assessment/Plan Patient is 59 years old male with past medical history of atrial fibrillation, hypertension, diabetes type 2, obesity presented to the hospital with shortness of breath. Patient stated that he has been having increased shortness of breath for past few days. He stated that his shortness of breath was associated with orthopnea. Patient denied any cough, fever, chills, diarrhea. 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 Also patient stated that he drinks alcohol on the daily basis, 2 to 3 shots of vodka for many years. In ER patient was found to have atrial fibrillation with rapid ventricular rate, afebrile, no leukocytosis, magnesium 1.6, BNP 285, CTA showed no pulmonary embolus. EKG showed no acute ischemic changes Problems Atrial fibrillation with RVR Multifactorial. Most likely patient noncompliant to his medication. Also there is possibility for alcohol withdrawal which can contribute to rapid ventricular rate. Patient is a daily drinker. I increased the dose of Metoprolol 50 mg to 4 times a day. I expect that after alcohol withdrawal resolution heart rate will be improved Lopressor IV when necessary Echo showed Mild concentric left ventricle hypertrophy. Normal regional LV wall motion and wall thickening. Normal LV systolic function. 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
[2020-08-26 15:35] LABS: PHOSPHORUS LEVEL 4.1 MG/DL (2.5-4.9)
[2020-08-27] VITALS (7 sets, daily range): BP systolic 100–128; BP diastolic 60–90
[2020-08-27 06:47] LABS: BASO # 0.1 10^3/uL (0.0-0.2); BASO % 1.1 % (0.0-1.0); EOS # 0.4 10^3/uL (0.0-0.5); EOS % 3.9 % (0.0-3.0); HEMOGLOBIN 16.7 g/dl (13.5-17.5); LYMPH # 2.3 10^3/uL (1.5-5.0); LYMPH % 20.1 % (24.0-44.0); MEAN CORPUSCULAR HEMOGLOBIN 33.1 pg (27.0-33.0); MEAN CORPUSCULAR HGB CONC 33.4 g/dl (32.0-36.5); MONO # 1.1 10^3/uL (0.0-0.8); MONO % 9.4 % (2.0-8.0); NEUTROPHILS # 7.3 10^3/uL (1.5-8.5); NEUTROPHILS % 65.1 % (36.0-66.0); PLATELET COUNT, AUTOMATED 184 10^3/uL (150-450); RED BLOOD COUNT 5.05 10^6/uL (4.30-6.10); WHITE BLOOD COUNT 11.3 10^3/uL (4.0-10.0)
[2020-08-27] MEDS: SLF 3 ML SYR IV SCH ×3 (06:52→21:07)
[2020-08-27 07:07] LABS: ALBUMIN 3.1 GM/DL (3.2-5.2); ALT/SGPT 39 U/L (12-78); BILIRUBIN,TOTAL 1.8 MG/DL (0.2-1.0); BLOOD UREA NITROGEN 15 MG/DL (7-18); CALCIUM LEVEL 9.2 MG/DL (8.5-10.1); CARBON DIOXIDE LEVEL 27 MEQ/L (21-32); CHLORIDE LEVEL 100 MEQ/L (98-107); CREATININE FOR GFR 0.63 MG/DL (0.70-1.30); GLOMERULAR FILTRATION RATE > 60.0 (>56); GLUCOSE, FASTING 89 MG/DL (70-100); MAGNESIUM LEVEL 1.9 MG/DL (1.8-2.4); SODIUM LEVEL 134 MEQ/L (136-145); TOTAL PROTEIN 7.8 GM/DL (6.4-8.2)
[2020-08-27] MEDS: HumaLOG INSULIN (NovoLOG) PER UNIT SC SCH ×4 (07:30→21:00)
[2020-08-27] MEDS: FOLIC ACID 1 MG TAB PO SCH (08:58)
[2020-08-27] MEDS: APIXABAN 5 MG TAB (ELIQUIS) PO SCH ×2 (08:58→21:06)
[2020-08-27] MEDS: SERTRALINE HCL 25 MG TABLET PO SCH (08:58)
[2020-08-27] MEDS: METOPROLOL TART 50 MG TAB PO SCH ×4 (08:58→21:06)
[2020-08-27] MEDS: OMEPRAZOLE 20 MG CAP PO SCH (08:58)
[2020-08-27] MEDS: ATORVASTATIN 20 MG TAB PO SCH (08:59)
[2020-08-27] MEDS: MULTIVITAMINS/MINERALS THERAP 1 TAB PO SCH (08:59)
--- NOTE | 2020-08-27 09:00 | REP ---
INDICATION: aspiration PNA. COMPARISON: Portable chest dated 08/23/2020 TECHNIQUE: Portable AP chest with the patient upright. FINDINGS: The coarsened interstitial markings identified previously have improved. There are no focal infiltrates or pleural effusions. Cardiac size is borderline enlarged, unchanged. There is elevation of the right hemidiaphragm, unchanged. Cervical spine stabilization plate is unchanged. IMPRESSION: The coarsened interstitial markings on the comparison study have improved. There is no other interval change. <Electronically signed by Rigo Jones > 08/27/20 0857
--- NOTE | 2020-08-27 17:38 | IPNPDOC ---
Text Note Date of Service The patient was seen on 08/27/20. NOTE Subjective: No any acute events overnight .CIWA score 2. Heart rate around 105. Patient denied any chest pain Objective: GENERAL APPEARANCE: In moderate distress, obese male HEENT: no scleral icterus, no JVD, EOMI CARDIOVASCULAR: Irregularly irregular LUNGS: Diminished lung sounds bilaterally ABDOMEN: soft & not tender w palpitation MUSCULOSKELETAL: no cyanosis, no swelling INTEGUMENT: no generalized pallor NEUROLOGICAL: cranial nerve function from 2-12 intact intact, follows commands, speech not dysarthric Assessment/Plan Patient is 59 years old male with past medical history of atrial fibrillation, hypertension, diabetes type 2, obesity presented to the hospital with shortness of breath. Patient stated that he has been having increased shortness of breath for past few days. He stated that his shortness of breath was associated with orthopnea. Patient denied any cough, fever, chills, diarrhea. 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 Also patient stated that he drinks alcohol on the daily basis, 2 to 3 shots of vodka for many years. In ER patient was found to have atrial fibrillation with rapid ventricular rate, afebrile, no leukocytosis, magnesium 1.6, BNP 285, CTA showed no pulmonary embolus. EKG showed no acute ischemic changes Problems Atrial fibrillation with RVR Multifactorial. Most likely patient noncompliant to his medication. Also there is possibility for alcohol withdrawal which can contribute to rapid ventricular rate. Patient is a daily drinker. I increased the dose of Metoprolol 50 mg to 4 times a day. I expect that after alcohol withdrawal resolution heart rate will be improved Lopressor IV when necessary Echo showed Mild concentric left ventricle hypertrophy. Normal regional LV wall motion and wall thickening. Normal LV systolic function. 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
[2020-08-28 02:22] VITALS: BP 112/76
[2020-08-28] MEDS: LORazepam 2 MG TAB PO PRN (02:34)
[2020-08-28 04:24] VITALS: BP 118/68
[2020-08-28 06:00] VITALS: BP 110/69
[2020-08-28] MEDS: SLF 3 ML SYR IV SCH ×3 (06:20→20:02)
[2020-08-28 06:28] LABS: BASO # 0.1 10^3/uL (0.0-0.2); EOS # 0.4 10^3/uL (0.0-0.5); EOS % 3.1 % (0.0-3.0); HEMATOCRIT 48.1 % (42.0-52.0); LYMPH # 2.5 10^3/uL (1.5-5.0); LYMPH % 20.3 % (24.0-44.0); MEAN CORPUSCULAR HEMOGLOBIN 33.1 pg (27.0-33.0); MEAN CORPUSCULAR HGB CONC 33.3 g/dl (32.0-36.5); MEAN CORPUSCULAR VOLUME 99.4 fl (80.0-96.0); MONO # 1.4 10^3/uL (0.0-0.8); MONO % 11.3 % (2.0-8.0); NEUTROPHILS # 7.9 10^3/uL (1.5-8.5); NEUTROPHILS % 63.4 % (36.0-66.0); PLATELET COUNT, AUTOMATED 179 10^3/uL (150-450); RED BLOOD COUNT 4.84 10^6/uL (4.30-6.10); WHITE BLOOD COUNT 12.4 10^3/uL (4.0-10.0)
[2020-08-28 06:47] LABS: ALBUMIN 2.9 GM/DL (3.2-5.2); ALT/SGPT 35 U/L (12-78); BILIRUBIN,TOTAL 1.5 MG/DL (0.2-1.0); BLOOD UREA NITROGEN 15 MG/DL (7-18); CALCIUM LEVEL 8.9 MG/DL (8.5-10.1); CARBON DIOXIDE LEVEL 28 MEQ/L (21-32); CHLORIDE LEVEL 102 MEQ/L (98-107); CREATININE FOR GFR 0.67 MG/DL (0.70-1.30); GLOMERULAR FILTRATION RATE > 60.0 (>56); GLUCOSE, FASTING 103 MG/DL (70-100); MAGNESIUM LEVEL 1.7 MG/DL (1.8-2.4); POTASSIUM SERUM 3.9 MEQ/L (3.5-5.1); SODIUM LEVEL 136 MEQ/L (136-145); TOTAL PROTEIN 7.3 GM/DL (6.4-8.2)
[2020-08-28 08:00] VITALS: BP 110/69
[2020-08-28] MEDS: ATORVASTATIN 20 MG TAB PO SCH (08:02)
[2020-08-28] MEDS: MULTIVITAMINS/MINERALS THERAP 1 TAB PO SCH (08:02)
[2020-08-28] MEDS: APIXABAN 5 MG TAB (ELIQUIS) PO SCH ×2 (08:02→20:01)
[2020-08-28] MEDS: FOLIC ACID 1 MG TAB PO SCH (08:02)
[2020-08-28] MEDS: SERTRALINE HCL 25 MG TABLET PO SCH (08:02)
[2020-08-28] MEDS: METOPROLOL TART 50 MG TAB PO SCH ×2 (08:02→20:01)
[2020-08-28] MEDS: HumaLOG INSULIN (NovoLOG) PER UNIT SC SCH ×4 (08:03→20:01)
[2020-08-28] MEDS: MAGNESIUM GLUCONATE 500 MG TAB PO SCH (09:28)
--- NOTE | 2020-08-28 13:05 | IPNPDOC ---
Text Note Date of Service The patient was seen on 08/28/20. NOTE Subjective: Patient had 1 episode of bradycardia with heart rate 43 overnight. CIWA score 2. Heart rate around 105. Patient denied any chest pain Objective: GENERAL APPEARANCE: In moderate distress, obese male HEENT: no scleral icterus, no JVD, EOMI CARDIOVASCULAR: Irregularly irregular LUNGS: Diminished lung sounds bilaterally ABDOMEN: soft & not tender w palpitation MUSCULOSKELETAL: no cyanosis, no swelling INTEGUMENT: no generalized pallor NEUROLOGICAL: cranial nerve function from 2-12 intact intact, follows commands, speech not dysarthric Assessment/Plan Patient is 59 years old male with past medical history of atrial fibrillation, hypertension, diabetes type 2, obesity presented to the hospital with shortness of breath. Patient stated that he has been having increased shortness of breath for past few days. He stated that his shortness of breath was associated with orthopnea. Patient denied any cough, fever, chills, diarrhea. 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 Also patient stated that he drinks alcohol on the daily basis, 2 to 3 shots of vodka for many years. In ER patient was found to have atrial fibrillation with rapid ventricular rate, afebrile, no leukocytosis, magnesium 1.6, BNP 285, CTA showed no pulmonary embolus. EKG showed no acute ischemic changes Problems Atrial fibrillation with RVR Multifactorial. Most likely patient noncompliant to his medication. Also there is possibility for alcohol withdrawal which can contribute to rapid ventricular rate. Patient is a daily drinker. I decreased the dose of Metoprolol 50 mg to 2 times a day due to episode of bradycardia. I expect that after alcohol withdrawal resolution heart rate will be improved Lopressor IV when necessary Echo showed Mild concentric left ventricle hypertrophy. Normal regional LV wall motion and wall thickening. Normal LV systolic function. 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
[2020-08-28 14:00] VITALS: BP 115/57
[2020-08-28 22:00] VITALS: BP_SYST 115; BP_SYST 120; BP_DIAS 57; BP_DIAS 61
[2020-08-29] MEDS: SLF 3 ML SYR IV SCH ×3 (05:44→20:14)
[2020-08-29 06:00] VITALS: BP 106/73
[2020-08-29 06:01] LABS: BASO # 0.1 10^3/uL (0.0-0.2); EOS # 0.4 10^3/uL (0.0-0.5); EOS % 3.3 % (0.0-3.0); HEMATOCRIT 48.6 % (42.0-52.0); HEMOGLOBIN 15.9 g/dl (13.5-17.5); LYMPH # 2.5 10^3/uL (1.5-5.0); MEAN CORPUSCULAR HEMOGLOBIN 32.6 pg (27.0-33.0); MEAN CORPUSCULAR HGB CONC 32.7 g/dl (32.0-36.5); MEAN CORPUSCULAR VOLUME 99.8 fl (80.0-96.0); MONO # 1.3 10^3/uL (0.0-0.8); MONO % 10.6 % (2.0-8.0); NEUTROPHILS # 8.1 10^3/uL (1.5-8.5); NEUTROPHILS % 64.8 % (36.0-66.0); PLATELET COUNT, AUTOMATED 186 10^3/uL (150-450); RED BLOOD COUNT 4.87 10^6/uL (4.30-6.10); WHITE BLOOD COUNT 12.5 10^3/uL (4.0-10.0)
[2020-08-29 06:36] LABS: ALBUMIN 2.9 GM/DL (3.2-5.2); ALT/SGPT 42 U/L (12-78); BILIRUBIN,TOTAL 1.1 MG/DL (0.2-1.0); BLOOD UREA NITROGEN 16 MG/DL (7-18); CALCIUM LEVEL 9.1 MG/DL (8.5-10.1); CARBON DIOXIDE LEVEL 30 MEQ/L (21-32); CHLORIDE LEVEL 105 MEQ/L (98-107); CREATININE FOR GFR 0.78 MG/DL (0.70-1.30); GLOMERULAR FILTRATION RATE > 60.0 (>56); GLUCOSE, FASTING 113 MG/DL (70-100); POTASSIUM SERUM 3.9 MEQ/L (3.5-5.1); SODIUM LEVEL 139 MEQ/L (136-145); TOTAL PROTEIN 7.8 GM/DL (6.4-8.2)
[2020-08-29] MEDS: FOLIC ACID 1 MG TAB PO SCH (08:33)
[2020-08-29] MEDS: APIXABAN 5 MG TAB (ELIQUIS) PO SCH ×2 (08:33→20:14)
[2020-08-29] MEDS: OMEPRAZOLE 20 MG CAP PO SCH (08:33)
[2020-08-29] MEDS: MAGNESIUM GLUCONATE 500 MG TAB PO SCH (08:33)
[2020-08-29] MEDS: SERTRALINE HCL 25 MG TABLET PO SCH (08:33)
[2020-08-29] MEDS: MULTIVITAMINS/MINERALS THERAP 1 TAB PO SCH (08:33)
[2020-08-29] MEDS: ATORVASTATIN 20 MG TAB PO SCH (08:33)
[2020-08-29] MEDS: METOPROLOL TART 50 MG TAB PO SCH ×2 (08:34→20:14)
[2020-08-29 08:38] VITALS: BP 113/80
[2020-08-29] MEDS: HumaLOG INSULIN (NovoLOG) PER UNIT SC SCH ×5 (08:38→20:03)
--- NOTE | 2020-08-29 11:50 | IPNPDOC ---
Text Note Date of Service The patient was seen on 08/29/20. NOTE Subjective: CIWA score 2. Heart rate around 105. Patient denied any chest pain or palpitations. Objective: GENERAL APPEARANCE: NAD, obese male HEENT: no scleral icterus, no JVD, EOMI CARDIOVASCULAR: Irregularly irregular LUNGS: Diminished lung sounds bilaterally ABDOMEN: soft & not tender w palpitation MUSCULOSKELETAL: no cyanosis, no swelling INTEGUMENT: no generalized pallor NEUROLOGICAL: cranial nerve function from 2-12 intact intact, follows commands, speech not dysarthric Assessment/Plan Patient is 59 years old male with past medical history of atrial fibrillation, hypertension, diabetes type 2, obesity presented to the hospital with shortness of breath. Patient stated that he has been having increased shortness of breath for past few days. He stated that his shortness of breath was associated with orthopnea. Patient denied any cough, fever, chills, diarrhea. 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 Also patient stated that he drinks alcohol on the daily basis, 2 to 3 shots of vodka for many years. In ER patient was found to have atrial fibrillation with rapid ventricular rate, afebrile, no leukocytosis, magnesium 1.6, BNP 285, CTA showed no pulmonary embolus. EKG showed no acute ischemic changes Problems Atrial fibrillation with RVR Multifactorial. Most likely patient noncompliant to his medication. Also there is possibility for alcohol withdrawal which can contribute to rapid ventricular rate. Patient is a daily drinker. I decreased the dose of Metoprolol 50 mg to 2 times a day due to episode of bradycardia. I expect that after alcohol withdrawal resolution heart rate will be improved Lopressor IV when necessary Echo showed Mild concentric left ventricle hypertrophy. Normal regional LV wall motion and wall thickening. Normal LV systolic function. 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
[2020-08-29 14:00] VITALS: BP_SYST 113; BP_SYST 116; BP_DIAS 80; BP_DIAS 81
[2020-08-29] MEDS ORDERED: rOPINIRole 2MG TAB PO SCH (21:00)
[2020-08-29 22:00] VITALS: BP 106/70
[2020-08-30] MEDS: SLF 3 ML SYR IV SCH (05:39)
[2020-08-30 06:00] VITALS: BP 117/63
[2020-08-30 06:32] LABS: BASO # 0.1 10^3/uL (0.0-0.2); BASO % 1.3 % (0.0-1.0); EOS # 0.3 10^3/uL (0.0-0.5); EOS % 2.9 % (0.0-3.0); HEMATOCRIT 48.2 % (42.0-52.0); HEMOGLOBIN 15.7 g/dl (13.5-17.5); LYMPH # 2.2 10^3/uL (1.5-5.0); LYMPH % 21.2 % (24.0-44.0); MEAN CORPUSCULAR HEMOGLOBIN 32.6 pg (27.0-33.0); MEAN CORPUSCULAR HGB CONC 32.6 g/dl (32.0-36.5); MEAN CORPUSCULAR VOLUME 100.2 fl (80.0-96.0); MONO # 1.2 10^3/uL (0.0-0.8); MONO % 11.2 % (2.0-8.0); NEUTROPHILS # 6.6 10^3/uL (1.5-8.5); PLATELET COUNT, AUTOMATED 162 10^3/uL (150-450); RED BLOOD COUNT 4.81 10^6/uL (4.30-6.10); WHITE BLOOD COUNT 10.5 10^3/uL (4.0-10.0)
[2020-08-30 06:52] LABS: ALBUMIN 2.8 GM/DL (3.2-5.2); ALT/SGPT 51 U/L (12-78); BLOOD UREA NITROGEN 19 MG/DL (7-18); CALCIUM LEVEL 8.9 MG/DL (8.5-10.1); CARBON DIOXIDE LEVEL 25 MEQ/L (21-32); CHLORIDE LEVEL 106 MEQ/L (98-107); CREATININE FOR GFR 0.68 MG/DL (0.70-1.30); GLOMERULAR FILTRATION RATE > 60.0 (>56); GLUCOSE, FASTING 112 MG/DL (70-100); MAGNESIUM LEVEL 1.8 MG/DL (1.8-2.4); POTASSIUM SERUM 3.8 MEQ/L (3.5-5.1); SODIUM LEVEL 136 MEQ/L (136-145); TOTAL PROTEIN 7.5 GM/DL (6.4-8.2)
[2020-08-30] MEDS: HumaLOG INSULIN (NovoLOG) PER UNIT SC SCH ×2 (07:30→12:00)
[2020-08-30] MEDS: MULTIVITAMINS/MINERALS THERAP 1 TAB PO SCH (09:37)
[2020-08-30] MEDS: MAGNESIUM GLUCONATE 500 MG TAB PO SCH (09:37)
[2020-08-30] MEDS: APIXABAN 5 MG TAB (ELIQUIS) PO SCH (09:37)
[2020-08-30] MEDS: FOLIC ACID 1 MG TAB PO SCH (09:37)
[2020-08-30] MEDS: ATORVASTATIN 20 MG TAB PO SCH (09:37)
[2020-08-30] MEDS: SERTRALINE HCL 25 MG TABLET PO SCH (09:37)
[2020-08-30 09:38] VITALS: BP 116/82
[2020-08-30] MEDS: METOPROLOL TART 50 MG TAB PO SCH (09:38)
[2020-08-30] MEDS ORDERED: METF-839 PO (11:31)
[2020-08-30] MEDS ORDERED: ROPI2TAB3 PO (11:31)
[2020-08-30] MEDS ORDERED: ATOR1TAB21 PO (11:31)
[2020-08-30] MEDS ORDERED: MAGN50TA PO (11:31)
--- NOTE | 2020-08-30 20:24 | DS.PDOC ---
Discharge Summary General Date of Admission Aug 23, 2020 at 11:02 Date of Discharge 08/30/20 Discharge Summary PROCEDURES PERFORMED DURING STAY: [None]. ADMITTING DIAGNOSES: Atrial fibrillation with RVR Alcoholism Hypertension Diabetes mellitus GERD (gastroesophageal reflux disease) DISCHARGE DIAGNOSES: Atrial fibrillation with RVR Alcoholism Hypertension Diabetes mellitus GERD (gastroesophageal reflux disease) COMPLICATIONS/CHIEF COMPLAINT: Atrial Fibrillation With Rvr. HISTORY OF PRESENT ILLNESS:Patient is 59 years old male with past medical history of atrial fibrillation, hypertension, diabetes type 2, obesity presented to the hospital with shortness of breath. Patient stated that he has been having increased shortness of breath for past few days. He stated that his shortness of breath was associated with orthopnea. Patient denied any cough, fever, chills, diarrhea. 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 Also patient stated that he drinks alcohol on the daily basis, 2 to 3 shots of vodka for many years. In ER patient was found to have atrial fibrillation with rapid ventricular rate, afebrile, no leukocytosis, magnesium 1.6, BNP 285, CTA showed no pulmonary embolus. EKG showed no acute ischemic changes HOSPITAL COURSE: During hospital stay the following issues addressed Atrial fibrillation with RVR Multifactorial. Most likely patient noncompliant to his medication. Also there is possibility for alcohol withdrawal which can contribute to rapid ventricular rate. Patient is a daily drinker. Patient received treatment with beta blockers positive effect Lopressor IV when necessary Echo showed Mild concentric left ventricle hypertrophy. Normal regional LV wall motion and wall thickening. Normal LV systolic function. 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 ALLERGIES: Please see below. PHYSICAL EXAMINATION ON DISCHARGE: VITAL SIGNS: Please see below. GENERAL APPEARANCE: NAD, obese male HEENT: no scleral icterus, no JVD, EOMI CARDIOVASCULAR: Irregularly irregular LUNGS: Diminished lung sounds bilaterally ABDOMEN: soft & not tender w palpitation MUSCULOSKELETAL: no cyanosis, no swelling INTEGUMENT: no generalized pallor NEUROLOGICAL: cranial nerve function from 2-12 intact intact, follows commands, speech not dysarthric LABORATORY DATA: Please see below. IMAGING: See above PROGNOSIS: Fair ACTIVITY: [As tolerated]. DIET: Cardiac DISPOSITION: Home, Self-Care. ITEMS TO FOLLOWUP ON ON OUTPATIENT: Follow-up with screw machine repairer and PCP in 3-5 days DISCHARGE CONDITION: [Stable]. TIME SPENT ON DISCHARGE:40minutes. Vital Signs/I&Os Vital Signs Date Time Temp Pulse Resp B/P (MAP) Pulse Ox O2 Delivery O2 Flow Rate FiO2 08/30/20 09:38 92 08/30/20 09:38 116/82 08/30/20 07:43 95 08/30/20 06:00 97.1 19 Room Air 08/27/20 11:18 2.0 I&O- Last 24 Hours up to 6 AM 08/30/20 06:00 Intake Total 1080 ml Output Total 350 ml Balance 730 ml Laboratory Data Labs 24H Laboratory Tests 2 08/30/20 05:15: Immature Granulocyte % (Auto) 0.4, Neutrophils (%) (Auto) 63.0, Lymphocytes (%) (Auto) 21.2L, Monocytes (%) (Auto) 11.2H, Eosinophils (%) (Auto) 2.9, Basophils (%) (Auto) 1.3H, Neutrophils # (Auto) 6.6, Lymphocytes # (Auto) 2.2, Monocytes # (Auto) 1.2H, Eosinophils # (Auto) 0.3, Basophils # (Auto) 0.1, Nucleated Red Blood Cells % (auto) 0.0, Anion Gap 5L, Glomerular Filtration Rate > 60.0, Calcium Level 8.9, Magnesium Level 1.8, Total Bilirubin 1.0, Aspartate Amino Transf (AST/SGOT) 56H, Alanine Aminotransferase (ALT/SGPT) 51, Alkaline Phosphatase 90, Total Protein 7.5, Albumin 2.8L, Albumin/Globulin Ratio 0.6 08/30/20 11:38: Bedside Glucose (Misc Panel) 152H CBC/BMP Laboratory Tests 08/30/20 05:15 FSBS Laboratory Tests Test 08/30/20 11:38 Range/Units Bedside Glucose (Misc Panel) 152 70-105 MG/DL Discharge Medications Scheduled Apixaban (Eliquis) 5 Mg Tablet, 5 MG PO BID, (Reported) Atorvastatin Calcium (Atorvastatin Calcium) 20 Mg Tablet, 40 MG PO DAILY Hydrochlorothiazide (Hydrochlorothiazide) 25 Mg Tablet, 12.5 MG PO DAILY, (Reported) RECENT DECREASE BY Lisinopril (Lisinopril) 10 Mg Tablet, 10 MG PO DAILY, (Reported) Magnesium Gluconate (Mag-G) 27 Mg Tablet, 500 MG PO DAILY Metformin HCl (Metformin HCl) 500 Mg Tablet, 1,000 MG PO BID Metoprolol Tartrate (Metoprolol Tartrate) 25 Mg Tablet, 25 MG PO BID, (Reported) Omeprazole (Omeprazole) 20 Mg Capsule.dr, 20 MG PO Q2D, (Reported) Ropinirole HCl (Ropinirole HCl) 2 Mg Tablet, 4 MG PO QHS Sertraline HCl (Sertraline HCl) 50 Mg Tablet, 25 MG PO DAILY, (Reported) Allergies Coded Allergies: No Known Allergies (Verified , 11/30/02) PHYLICIA DOAN DO Aug 30, 2020 20:24
== END 2020-08-30 13:07 | disposition home or self-care (01) | DRG 201 ==
LOC: M ED 07:34 → M ED INP 11:02 → ENRESERV 15:04 → M PCU 15:25 → M MSPAV 08-27 15:34
PROVIDERS: ADMIT Internal Medicine; ATTEND Internal Medicine
DX: I48.91 Unspecified atrial fibrillation (principal); I10 Essential (primary) hypertension; E11.9 Type 2 diabetes mellitus without complications; K21.9 Gastro-esophageal reflux disease without esophagitis; F41.9 Anxiety disorder, unspecified; E66.9 Obesity, unspecified; F10.239 Alcohol dependence with withdrawal, unspecified; Z79.01 Long term (current) use of anticoagulants; Z20.822 Contact with and (suspected) exposure to COVID-19; Z79.84 Long term (current) use of oral hypoglycemic drugs; Z79.899 Other long term (current) drug therapy; Z85.038 Personal history of other malignant neoplasm of large intestine; Z90.49 Acquired absence of other specified parts of digestive tract; Z91.14 Patient's other noncompliance with medication regimen; Z68.35 Body mass index [BMI] 35.0-35.9, adult

== ENCOUNTER → 2020-09-06 | Outpatient (CLI) | payer BC ==
[~2020-09-06] MED LIST changes: +ATOR1TAB21 PO; +ELIQ5TAB PO; +HYDR-3490 PO; +MAGN50TA PO; +METO1TAB87 PO; +OMEP1CAP73 PO; +ROPI2TAB3 PO; +SERT50TA29 PO
== END ==
LOC: M OUTALCOH 07:42
PROVIDERS: ATTEND Psychiatry & Neurology Psychiatry
DX: F10.20 Alcohol dependence, uncomplicated (principal)

== ENCOUNTER 2020-09-19 14:49 | Emergency (ER) | payer BC ==
[~2020-09-19] VITALS: Ht 177.8 cm; Wt 112.8 kg
[2020-09-19] MEDS ORDERED: ACETAMINOPHEN 500 MG TAB PO ONE (16:00)
--- NOTE | 2020-09-19 16:15 | REP ---
INDICATION: pain/dec rom COMPARISON: None. TECHNIQUE: Three views right shoulder FINDINGS: There is no evidence of acute fracture, dislocation, or intrinsic bone disease.There is mild joint space narrowing and spurring at the acromioclavicular and glenohumeral joints. IMPRESSION: No fracture or dislocation. Mild degenerative changes. <Electronically signed by Rigo Guzman > 09/19/20 [id number]
[2020-09-19 16:46] VITALS: BP 114/84
== END 2020-09-19 16:51 | disposition home or self-care (01) ==
LOC: M ED 14:49
DX: M19.011 Primary osteoarthritis, right shoulder (principal); I10 Essential (primary) hypertension; E11.9 Type 2 diabetes mellitus without complications; I48.91 Unspecified atrial fibrillation; F33.9 Major depressive disorder, recurrent, unspecified; F41.9 Anxiety disorder, unspecified; G47.33 Obstructive sleep apnea (adult) (pediatric); K21.9 Gastro-esophageal reflux disease without esophagitis; Z79.899 Other long term (current) drug therapy; Z79.84 Long term (current) use of oral hypoglycemic drugs; Z79.01 Long term (current) use of anticoagulants

== ENCOUNTER 2020-09-21 14:00 | Outpatient (RCR) | payer BC | END 2020-09-23 | LOC: M OUTALCOH 14:00 | PROVIDERS: ATTEND Psychiatry & Neurology Psychiatry | DX: F10.20 Alcohol dependence, uncomplicated (principal) ==

== ENCOUNTER → 2020-09-23 | Outpatient (CLI) | payer BC ==
--- NOTE | 2020-09-23 12:26 | REP ---
INDICATION: FREQUENT URINATION. COMPARISON: None. TECHNIQUE: Real-time sonographic evaluation of urinary bladder performed. FINDINGS: Bladder measures 11.5 x 8.1 x 4.6 cm for total volume of 262 cc. Postvoid residual is 33 cc, 13% of the original volume. No bladder wall mass or thickening is seen. No intraluminal calculus is seen. There are bilateral ureteral jets within the urinary bladder with Doppler color evaluation. IMPRESSION: Essentially unremarkable bladder ultrasound, mild postvoid residual of 13%. <Electronically signed by Rigo Guzman > 09/23/20 [id number]
--- NOTE | 2020-09-23 12:27 | REP ---
INDICATION: FREQUENT URINATION. COMPARISON: None. TECHNIQUE: Real-time sonographic evaluation of the kidneys is performed. FINDINGS: Renal cortical echogenicity pattern is normal bilaterally and contours are smooth. There is no evidence of hydronephrosis, cyst, mass, or calculus in either kidney. The right kidney measures 14.4 x 6.8 x 6.5 cm. Left renal dimensions are 15.3 x 6.3 x 7.0 cm. IMPRESSION: Negative renal ultrasound. <Electronically signed by Rigo Guzman > 09/23/20 [id number]
== END ==
LOC: M RAD 11:14
PROVIDERS: ATTEND Family Medicine
DX: R35.0 Frequency of micturition (principal)

== ENCOUNTER → 2020-10-05 | Outpatient (CLI) | payer BC ==
--- NOTE | 2020-10-05 14:09 | REP ---
INDICATION: STRAIN,POP,DIFF LIFTING ? POSSIBLE TEAR OR LHB INJ. COMPARISON: Radiographs 09/19/2020. TECHNIQUE: Coronal oblique T1, T2 fat sat, sagittal oblique T2 fat sat, axial T2 fat sat, gradient echo. FINDINGS: Rotator cuff: There is mild supraspinatus tendinopathy/tendinitis. There is a probable partial tear of the anterior distal supraspinatus tendon. Acromioclavicular joint: There are moderate hypertrophic degenerative changes of the acromioclavicular joint. Acromion: Type 2 Biceps Tendon: Proximal long head of the biceps tendon is torn, it is not seen within the bicipital groove and is replaced by mild complex fluid. Hill Sach's deformity: None. Deltoid muscle: No abnormal signal. Biceps labral complex: Biceps is not seen inserting onto the superior labrum. Labrum: The superior labrum is not well visualized, but I suspect some degree of fraying or tearing of the superior labrum. Cartilage: No defects. Bone marrow: There are couple of subcortical cysts in the anterior humeral head. There is no occult fracture. Joint fluid: There is mild fluid in the subdeltoid bursa. IMPRESSION: Mild supraspinatus tendinopathy/tendinitis. Possible partial tear of the anterior distal supraspinatus tendon. Moderate hypertrophic degenerative changes acromioclavicular joint with a type 2 acromion. Proximal long head of the biceps tendon is completely torn as it is not seen within the bicipital groove, and is replaced by mild complex fluid. The superior labrum is not well visualized but I suspect some degree of fraying or tearing. <Electronically signed by Rigo Guzman > 10/05/20 0713
== END ==
LOC: M PLARAD 08:59
PROVIDERS: ATTEND Orthopaedic Surgery Sports Medicine
DX: S46.011A Strain of muscle(s) and tendon(s) of the rotator cuff of right shoulder, initial encounter (principal); X58.XXXA Exposure to other specified factors, initial encounter; Y92.9 Unspecified place or not applicable; Y99.9 Unspecified external cause status

== ENCOUNTER 2020-10-20 09:00 | Outpatient (RCR) | payer BC | END 2020-10-24 | LOC: M OUTALCOH 09:00 | PROVIDERS: ATTEND Psychiatry & Neurology Psychiatry | DX: F10.20 Alcohol dependence, uncomplicated (principal) ==

== ENCOUNTER → 2020-11-04 | Outpatient (CLI) | payer BC | LOC: M LABSMTC 09:58 | PROVIDERS: ATTEND Anesthesiology | DX: Z01.812 Encounter for preprocedural laboratory examination (principal); Z20.822 Contact with and (suspected) exposure to COVID-19 ==

== ENCOUNTER → 2020-11-23 | Outpatient (RCR) | payer BC ==
[~2020-11-23] MED LIST changes: +OMEP40CA4 PO; -OMEP40CA97 PO
== END ==
LOC: M OUTALCOH 10-25 15:34
PROVIDERS: ATTEND Psychiatry & Neurology Psychiatry
DX: F10.20 Alcohol dependence, uncomplicated (principal)

== ENCOUNTER 2020-12-20 15:18 | Outpatient (RCR) | payer BC | END 2020-12-24 | LOC: M OUTALCOH 15:18 | PROVIDERS: ATTEND Psychiatry & Neurology Psychiatry | DX: F10.20 Alcohol dependence, uncomplicated (principal) ==

== ENCOUNTER 2020-12-22 13:15 | Outpatient (RCR) | payer BC | END 2020-12-24 | LOC: M PT 13:15 | PROVIDERS: ATTEND Orthopaedic Surgery Sports Medicine | DX: S46.011D Strain of muscle(s) and tendon(s) of the rotator cuff of right shoulder, subsequent encounter (principal) ==

== ENCOUNTER 2021-01-18 07:30 | Outpatient (RCR) | payer BC | END 2021-01-24 | LOC: M PT 07:30 | PROVIDERS: ATTEND Orthopaedic Surgery Sports Medicine | DX: S46.011D Strain of muscle(s) and tendon(s) of the rotator cuff of right shoulder, subsequent encounter (principal) ==

== ENCOUNTER → 2021-02-03 | Outpatient (CLI) | payer BC | LOC: M LABSMTC 09:17 | PROVIDERS: ATTEND Anesthesiology | DX: Z01.818 Encounter for other preprocedural examination (principal); Z11.52 Encounter for screening for COVID-19 ==

== ENCOUNTER 2021-02-08 09:09 | Day surgery (SDC) | payer BC ==
[~2021-02-08] VITALS: Ht 177.8 cm; Wt 112.9 kg
[~2021-02-08 09:09] MED LIST changes: +EPINEPHrine 1MG/ML INJ 30ML MD-VIAL As Ordered ONE; +LIDOCAINE 1% SDV 30ML VIAL As Ordered ONE; +LR 1,000 ML IV ONE; +MIDAZOLAM INJ 2MG/2ML VIAL (J2250 PER 1MG) As Ordered ONE; +ONDANSETRON 4MG/2ML VIAL As Ordered ONE; +ROCURONIUM BROMIDE 50 MG/5 ML VIAL As Ordered ONE; +SUGAMMADEX SODIUM 500 MG/5 ML VIAL (BRIDION) As Ordered ONE; +dexameTHASONE 4 MG/ML 1ML VIAL (J1100 PER 1MG) As Ordered ONE; +fentaNYL 100 MCG/2 ML INJECTION (J3010) As Ordered ONE; +propofoL 200 MG/20 ML VIAL As Ordered ONE
[2021-02-08] MEDS ORDERED: LIDOCAINE 2% 100MG/5ML SDV (FOR ANES.) As Ordered ONE (09:11)
[2021-02-08] MEDS: ceFAZolin SOD 1 GM in D5W MINI-BAG PLUS 50 ML IV SCH (10:40)
[2021-02-08] MEDS ORDERED: PHENYLephrine 500MCG 5ML (100MCG/ML) SYRINGE As Ordered ONE (11:15)
[2021-02-08] MEDS ORDERED: fentaNYL 100 MCG/2 ML INJECTION (J3010) As Ordered ONE (13:01)
[2021-02-08] MEDS: fentaNYL 100 MCG/2 ML INJECTION (J3010) IV PRN ×2 (13:01→13:19)
--- NOTE | 2021-02-08 13:06 | ROOPDOC ---
[facility] Report Of Operation Report of Operation DATE OF PROCEDURE: 02/08/21 PREPROCEDURE DIAGNOSES: Right shoulder rotator cuff tear, AC joint arthrosis, impingement, long head of biceps tear POSTPROCEDURE DIAGNOSES: Same. PROCEDURE PERFORMED: Right shoulder arthroscopy, subacromial decompression, distal clavicle excision, rotator cuff repair, debridement. SURGEON: Dr. Vidal Cid MD CRIME DATA SPECIALIST: ANESTHESIA: General anesthesia Dr Alonso. 10 cc 1% lidocaine around the portals. ESTIMATED BLOOD LOSS: Approximately 50 mL. COMPLICATIONS: None. REMARKS: None. FINDINGS: Long head of biceps tear with small remaining stump. Small 1 cm anterior leading edge rotator cuff tear SPECIMENS REMOVED: None PROCEDURE NOTE: This 60-year-old man failed conservative management for his right shoulder pain. MRI was consistent with long head of biceps rupture as well as likely anterior leading edge supraspinatus tendon tear and AC joint arthrosis. I again discussed with him of the pros and cons risks and benefits of surgery. I marked the right upper extremity. He had no further questions. DESCRIPTION OF PROCEDURE: Patient was brought to the operating room theater. He was administered 2 g of IV Ancef prior to start of the case. Transferred to the operating room table. General anesthesia was induced. Patient is placed right lateral decubitus on the beanbag positioner on the operating room table. All bony prominences appropriately padded. SCDs on the legs. Axillary roll placed. Arm placed in traction set up with 10 pounds of traction in the arm in approximately 45 degrees of abduction. Right upper extremity prepped and draped in the usual sterile fashion with chlorhexidine-based prep solution allowing over 3 minutes drying time prior to draping. Preoperative timeout performed to confirm the site patient and surgery. Began by making standard posterior and anterior arthroscopy portals. I examined the full intra-articular extent and took arthroscopy pictures throughout. I made the anterior portal through the rotator interval just posterior to the biceps tendon through an inside-out spinal needle localization technique. Cartilage on the glenoid and humeral head appeared normal. There is a pre- existing long head of biceps rupture with a small 2 cm stump remaining that I excised and debrided the remaining superior labrum. Rotator interval appeared normal. Some mild fraying of the rest of the labrum but no obvious tears. Subscapularis tendon appeared normal with a normal lever push no obvious fraying or tears. Posterior aspect of the rotator cuff appeared normal. Undersurface the rotator cuff tendon appeared to have some minor fraying. Where there is an area of full-thickness anterior leading edge tearing I marked this with a spinal needle. I then placed the arthroscope in the subacromial space. I performed a thorough debridement. There is a moderate to severe amount of inflammatory bursitis. Identified the anterior leading leading edge rotator cuff tear. I cleaned up the edges of this. Small crescent tear. Prepared the greater tuberosity. I used an Arthrex power pick instrument to trephinate at the rotator cuff insertion for healing. There is also a medial to lateral longitudinal split tear at the apex of this tear and medial to it. A spinal needle localization technique and then a punch to the second line followed by insertion of an Arthrex bio composite 4.75 mm swivel lock anchor double loaded with #2 FiberWire. This was at the articular margin, at the apex of the tear. I then passed 4 suture limbs in inverted horizontal mattress technique on either side of the medial to lateral split. Then used interrupted half hitches to tie 1 suture from either side of the tear to perform a margin convergence type repair. I cut the sutures short. I then used the 2 other suture limbs brought these out laterally and fixed it with a Arthrex 4.75 mm swivel lock anchor with a knotless technique. I cut all the suture short. Repair appeared solid and well fixed. The superior surface of the rotator cuff supraspinatus tendon was definitely degenerative with a moderate amount of fraying no other areas of full-thickness tearing however. I then performed subacromial decompression with a sandor instrument down to flat margins for a full width of the sandor approximately 5 mm. I then identified the distal end of the clavicle. I performed a distal clavicle excision using arthroscopic technique in the anterior portal that was just anterior to the AC joint. I removed the distal end of the clavicle for a length of approximately 5 mm. Final pictures were taken and saved onto the system. Case terminated. Wounds cleaned with wet and dry dressing. Portal sites closed with interrupted 3-0 Monocryl sutures. 10 cc 1% lidocaine was instilled in and around the portal sites. Adaptic 4 x 8 gauze abdominal pad dressings and then cloth tape was placed over top of the incisions and then upper extremity placed into a sling. Patient woken up from the general anesthetic transferred off the operating room table and taken to postanesthetic care unit in stable condition. All sponge needle instrument counts were correct no complications estimated blood loss 50 cc. Plan for the patient to go back on the [facility] postoperative day 1 being a sling with immediate pendulum exercises as well as hand wrist and elbow exercises. Follow-up in the office in 2 weeks time. The may be discharged home as long as they are stable and according to day surgery criteria and comfortable. Given his past cardiac history myself and the anesthesiologist discussed prior to the case he may need to stay 1 night overnight. Postoperative wound instructions were given. It was recommended to keep the wound clean and dry. Dressing changes as needed. It was reinforced with the patient that they should call us or be seen immediately for redness, drainage, or fever. Prescription sent in electronically to the pharmacy of [facility]. Risk factors for harms from taking opioid medications discussed and assessed including but not limited to personal or family history of substance use disorder, anxiety or depression, , age 65 or older, COPD or other underlying respiratory conditions, and renal or hepatic insufficiency. Discussed with patient concerns and determined any harms they may experience or be currently experiencing such as nausea or constipation, feeling sedated or confused, breathing interruptions during sleep, or taking or craving more opioids than prescribed or difficulty controlling use (addiction). Discussed early warning signs of overdose including confusion, sedation, slurred speech, abnormal gait. VIDAL CID MD Feb 08, 2021 13:06
[2021-02-08] MEDS ORDERED: LR 1,000 ML IV SCH ×2 (13:10→13:15)
[2021-02-08] MEDS ORDERED: ONDANSETRON 4MG/2ML VIAL IV PRN ×2 (13:10→13:15)
[2021-02-08] MEDS ORDERED: ACETAMINOPHEN TAB 650MG DOSE (2X325MG) PO PRN (13:15)
[2021-02-08] MEDS: oxyCODONE 5MG TAB PO PRN ×2 (13:19→13:52)
[2021-02-08] MEDS ORDERED: PERCOCET 5MG/325MG TAB PO PRN (13:20)
[2021-02-08] MEDS ORDERED: MORPHINE 2 MG/ML 1ML VIAL (J2270) IV PRN (13:20)
[2021-02-08 15:43] VITALS: BP 120/80
== END 2021-02-08 15:44 | disposition home or self-care (01) ==
LOC: M SDC 09:09
PROVIDERS: ATTEND Orthopaedic Surgery Sports Medicine
DX: M75.101 Unspecified rotator cuff tear or rupture of right shoulder, not specified as traumatic (principal); M19.011 Primary osteoarthritis, right shoulder; M75.41 Impingement syndrome of right shoulder; S46.101D Unspecified injury of muscle, fascia and tendon of long head of biceps, right arm, subsequent encounter; X58.XXXD Exposure to other specified factors, subsequent encounter
CPT/HCPCS: 29822; 29824; 29826; 29827; C1713; J0690; J1100; J2250; J2370; J2405; J3010

== ENCOUNTER 2021-02-23 13:12 | Emergency (ER) | payer BC ==
[~2021-02-23] VITALS: Ht 175.3 cm; Wt 119.5 kg
--- NOTE | 2021-02-23 16:22 | REP ---
INDICATION: CHEST PAIN. COMPARISON: 08/27/2020 the latest prior also portable TECHNIQUE: Portable FINDINGS: The technique utilized in obtaining the radiograph has magnified the cardiac silhouette and accentuated the interstitial markings. There is cardiomegaly accentuated by technique status quo. The lung hansen are stable. No acute patchy parenchymal opacities or pleural effusions have developed. There is no change in the osseous structures. IMPRESSION: Cardiomegaly without evidence of acute cardiopulmonary disease. <Electronically signed by David Marie > 02/23/21 [id number]
[2021-02-23 16:27] LABS: BASO # 0.1 10^3/uL (0.0-0.2); BASO % 1.1 % (0.0-1.0); EOS # 0.3 10^3/uL (0.0-0.5); EOS % 2.3 % (0.0-3.0); HEMATOCRIT 38.4 % (42.0-52.0); HEMOGLOBIN 12.4 g/dl (13.5-17.5); LYMPH # 2.1 10^3/uL (1.5-5.0); LYMPH % 19.9 % (24.0-44.0); MEAN CORPUSCULAR HEMOGLOBIN 29.9 pg (27.0-33.0); MEAN CORPUSCULAR HGB CONC 32.3 g/dl (32.0-36.5); MEAN CORPUSCULAR VOLUME 92.5 fl (80.0-96.0); MONO % 9.5 % (2.0-8.0); NEUTROPHILS # 7.2 10^3/uL (1.5-8.5); NEUTROPHILS % 66.8 % (36.0-66.0); PLATELET COUNT, AUTOMATED 211 10^3/uL (150-450); RED BLOOD COUNT 4.15 10^6/uL (4.30-6.10); WHITE BLOOD COUNT 10.8 10^3/uL (4.0-10.0)
[2021-02-23 16:59] LABS: ALBUMIN 3.1 GM/DL (3.2-5.2); ALT/SGPT 32 U/L (12-78); BILIRUBIN,DIRECT 0.3 MG/DL (0.0-0.2); BILIRUBIN,TOTAL 0.9 MG/DL (0.2-1.0); CK-MB VALUE MASS 3.3 NG/ML (<3.6); CPK CREATINE PHOSPHOKINASE 102 U/L (39-308); FREE T4 1.07 NG/DL (0.76-1.46); LIPASE 249 U/L (73-393); MB/CK RELATIVE INDEX 3.24 (< OR =4); NT-PRO BNP 303 PG/ML (<125); TOTAL PROTEIN 7.2 GM/DL (6.4-8.2); TROPONIN I < 0.02 NG/ML (< 0.10)
[2021-02-23 17:56] LABS: RSV AMPLIFICATION NEGATIVE (NEGATIVE)
[2021-02-23] MEDS ORDERED: ISOVUE-370 76% 100ML VIAL As Ordered ONE (17:58)
[2021-02-23] MEDS ORDERED: METOPROLOL TART 25 MG TABLET PO ONE (18:15)
[2021-02-23] MEDS ORDERED: METOPROLOL TART 50 MG TAB PO ONE (18:25)
--- NOTE | 2021-02-23 18:46 | REPVR ---
PROCEDURE INFORMATION: Exam: CTA Chest With Contrast Exam date and time: 02/23/2021 6:00 PM Age: 60 years old Clinical indication: Other: SOB, chest pain, afib, recent surgery TECHNIQUE: Imaging protocol: Computed tomographic angiography of the chest with contrast. 3D rendering (Not supervised by radiologist): MIP and/or 3D reconstructed images were created by the technologist. Radiation optimization: All CT scans at this facility use at least one of these dose optimization techniques: automated exposure control; mA and/or kV adjustment per patient size (includes targeted exams where dose is matched to clinical indication); or iterative reconstruction. Contrast material: ISOVUE 370; Contrast volume: 75 ml; Contrast route: INTRAVENOUS (IV); COMPARISON: CT ANGIO CHEST 08/23/2020 9:32 AM FINDINGS: Pulmonary arteries: There are no pulmonary emboli. Aorta: There is fusiform dilatation of the supravalvular ascending thoracic aorta which measures 3.7 cm. maximally. There is no dissection or saccular component. Other arteries: There is mild atherosclerosis in the thoracic aorta. Lungs: Unremarkable. No consolidation. No masses. Pleural spaces: Unremarkable. No pneumothorax. No pleural effusion. Heart: There is mild atherosclerotic calcification of the coronary arteries. Lymph nodes: Unremarkable. No enlarged lymph nodes. Bones/joints: The spine demonstrates moderate degenerative changes. Soft tissues: Cirrhosis. Splenomegaly. Cholelithiasis. IMPRESSION: 1. There is fusiform dilatation of the supravalvular ascending thoracic aorta which measures 3.7 cm. maximally. There is no dissection or saccular component. 2. There are no pulmonary emboli. 3. No acute pulmonary parenchymal abnormalities. Electronically signed by: Bull Riley On 02/23/2021 18:45:37 PM
--- NOTE | 2021-02-23 21:45 | ECGEPIP ---
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
--- NOTE | 2021-02-23 21:48 | ECGEPIP ---
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
[2021-02-23 21:52] VITALS: BP 138/84
--- NOTE | 2021-02-24 19:58 | ECGEPIP ---
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
== END 2021-02-23 21:54 | disposition home or self-care (01) ==
LOC: M ED 13:12
DX: G47.33 Obstructive sleep apnea (adult) (pediatric) (principal); Z91.19 Patient's noncompliance with other medical treatment and regimen; I48.91 Unspecified atrial fibrillation; E11.9 Type 2 diabetes mellitus without complications; F33.9 Major depressive disorder, recurrent, unspecified; F41.9 Anxiety disorder, unspecified; K21.9 Gastro-esophageal reflux disease without esophagitis; Z79.899 Other long term (current) drug therapy; Z79.01 Long term (current) use of anticoagulants; Z79.84 Long term (current) use of oral hypoglycemic drugs
CPT/HCPCS: 36415; 71045; 71275; 80047; 80076; 82550; 82553; 83690; 83880; 84439; 84443; 84484; 85025; 87631; 93005; 93041; 94760; 99285; Q9967

== ENCOUNTER → 2021-02-23 | Outpatient (RCR) | payer BC ==
[~2021-02-23] MED LIST changes: -EPINEPHrine 1MG/ML INJ 30ML MD-VIAL As Ordered ONE; -LIDOCAINE 1% SDV 30ML VIAL As Ordered ONE; -LR 1,000 ML IV ONE; -MIDAZOLAM INJ 2MG/2ML VIAL (J2250 PER 1MG) As Ordered ONE; -ONDANSETRON 4MG/2ML VIAL As Ordered ONE; -ROCURONIUM BROMIDE 50 MG/5 ML VIAL As Ordered ONE; -SUGAMMADEX SODIUM 500 MG/5 ML VIAL (BRIDION) As Ordered ONE; -dexameTHASONE 4 MG/ML 1ML VIAL (J1100 PER 1MG) As Ordered ONE; -fentaNYL 100 MCG/2 ML INJECTION (J3010) As Ordered ONE; -propofoL 200 MG/20 ML VIAL As Ordered ONE
== END ==
LOC: M OUTALCOH 02-01 15:00
PROVIDERS: ATTEND Psychiatry & Neurology Psychiatry
DX: F10.20 Alcohol dependence, uncomplicated (principal)

== ENCOUNTER → 2021-02-28 | Outpatient (REF) | payer BC ==
[2021-02-28 17:33] LABS: INR 1.18; PROTHROMBIN TIME 15.4 SECONDS (12.7-14.5)
[2021-02-28 19:28] LABS: FERRITIN 33 NG/ML (26-388)
[2021-02-28 19:45] LABS: HEPATITIS B SURFACE ANTIGEN NEGATIVE (NEGATIVE)
[2021-02-28 20:12] LABS: HEPATITIS B CORE ANTIBODY IGM NEGATIVE (NEGATIVE); HEPATITIS C VIRUS ABY INDEX 0.1 INDEX (<0.8)
[2021-02-28 20:14] LABS: HEPATITIS A ANTIBODY IGM NEGATIVE (NEGATIVE)
[2021-03-01 10:41] LABS: IRON (FE) 52 UG/DL (65-175); PERCENT SATURATION 11.4 % (19.7-50.0); TOTAL IRON BINDING CAPACITY 456 UG/DL (250-450)
[2021-03-01 11:34] LABS: HEPATITIS B SURFACE ANTIBODY NEGATIVE (POSITIVE)
== END ==
LOC: M LAB REF 16:34
PROVIDERS: ATTEND Internal Medicine
DX: K74.60 Unspecified cirrhosis of liver (principal); D64.9 Anemia, unspecified; K70.9 Alcoholic liver disease, unspecified

== ENCOUNTER → 2021-03-03 | Outpatient (CLI) | payer BC ==
--- NOTE | 2021-03-03 09:00 | REP ---
INDICATION: ASCITES COMPARISON: Renal ultrasound dated 09/23/2020 TECHNIQUE: Real time bender scale ultrasound examination using curved array transducer. FINDINGS: Limited directed ultrasound examination through the 4 quadrants of the abdomen and pelvis demonstrates no ascites. IMPRESSION: No ascites. <Electronically signed by Deangelo Powers > 03/03/21 [id number]
== END ==
LOC: M RAD 08:27
PROVIDERS: ATTEND Internal Medicine
DX: K74.60 Unspecified cirrhosis of liver (principal)

== ENCOUNTER 2021-03-14 14:00 | Inpatient (IN) | payer BC ==
[~2021-03-14] VITALS: Ht 175.3 cm; Wt 130.2 kg
--- OUTSIDE RECORDS SUMMARY | 2021-03-14 14:08 | CCD | Continuity of Care Document ---
Author Author Dipak SANCHEZ O Organization Unknown Address [address] [address] Phone [phone] Care Team Providers Care Community Health Advisor Name Role Phone Nader Goldman MD AUTM [phone] [facility] Radiology AUTM [phone] Problems Active Problems Provider Date Hemorrhoids Onset: 02/05/2011 Posterior rhinorrhea Onset: 02/05/2011 Abdominal pain Onset: 09/23/2009 Degenerative joint disease involving multiple joints Onset: 06/18/2009 Hyperlipidemia Onset: Hypertensive disorder Onset: Obstructive sleep apnea syndrome Onset: Gastroesophageal reflux disease Onset: 0 Alcoholic fatty liver Onset: Essential hypertension Nader Goldman M.D. Onset: 5 Restless legs Nader Goldman M.D. Onset: 03/23/2015 Hyperlipidemia Nader Goldman M.D. Onset: 03/23/2015 Noncompliance with treatment Nader Goldman M.D. Onset: Abnormal glucose level Nader Goldman M.D. Onset: 5 Alcohol-induced mood disorder Nader Goldman M.D. Onset: Social History Type Date Description Comments Sex Unknown ETOH Use Has consumed alcohol in the past Tobacco Use Start: Unknown Patient has never smoked Allergies and adverse reactions Description No Known Drug Allergies Medications Active Medications SIG Qnty Indications Ordering Provide r Date Spironolactone 25mg Tablets 1/2 by mouth every day 30tabs Milton Sanchez DO 03/08/20 21 Ferrous Sulfate 325(65Fe) mg Table ts Take 1 tablet by mouth daily for iron deficiency 90tabs Chri tona Lisseth, DO 03/08/2021 Lactulose 10GM/15ML Solution Take 30 ml by mouth 3 to 4 times daily and titrate to produce 2 to 3 soft stools/day 946ml Milton Sanchez, DO 03/01/2021 Furosemide 40mg Tablets 1 by mouth every day 30tabs Milton Sanchez, 02/29/20 21 Metoprolol Tartrate 25mg Tablets 3 tabs by mouth twice a day 180tabs Milton Sanchez, 2020 Atorvastatin Calcium 20mg Tablets 1 by mouth every day 30tabs Nader Goldman M.D. 09/01/2020 Ropinirole HCL 4mg Tablets take one tablet by mouth at bedtime 30tabs Nader oGldman M.D. 021 Metformin HCL 1000mg Tablets take one tablet by mouth twice times a day 180tabs Nader Goldman M.D. 09/01/2020 Magnesium Gluconate 500mg Tablets one daily 90tabs Nader Goldman M.D. 09/01/2020 Benzonatate 200mg Capsules Take One Capsule By Mouth Three Times A Day as Needed For Cough 60caps R05 Martín Sanchez MD 08/18/2019 Cetirizine HCL 10mg Tablets one tab by mouth daily at bed time (only as needed) 30tabs J30.9 Martín Sanchez MD 01/17/2018 Lancet Device With Ejector [facility] [place], [place] use as directed 1unzana Goldman M.D. 06/20/2015 Lancets 30G 30G Misc test twice a day and as needed e11.9 200unzana Goldman M.D. 06/20/2015 [facility] of blood glucose as directed. dx e11.9 uncontrolled 1unzana E11.65 Nader Goldman M.D. 06/17/2015 Test Strips For Glucose Meter T2DM any brand to test twice a day as directed dxe11.9 200units E11.65 Nader Goldman M.D. 06/17/[address] 1 by mouth every day 90caps Nader Goldman M.D. 01/03/2015 Zoloft 50mg Tablets 1 tablet, 1 time per day, for 90 days 90tabs Nader Goldman M.D. Eliquis 5mg Tablets take one tablet by mouth twice a day 180tabs Nader Goldman M.D. 0 Medications Administered in Office Medication SIG Qnty Indications Ordering Provider Date Immunization Adminstration,1 Vaccine/Tox oid Injection Nader Goldman M.D. 020 Immunizations CPT Code Status Date Vaccine Lot # 42750 Given 01/08/2020 Pneumovax 23 [id number] Given 03/26/2012 Influenza Virus Vaccine 11613 Refused 05/13/2018 Influenza Virus Vaccine, Quadrivalent (Cciiv4), Derived From Cell 29127 Refused 03/26/2012 Adacel- Tetanus Diphtheria P ertussis Vital Signs Date Vital Result Comment 03/08/2021 11:10am BP Systolic 100 mmHg BP Diastolic 72 mmHg Heart Rate 82 /min Height 70 inches 5'10" Weight 266.00 lb BMI (Body Mass Index) 38.2 kg/m2 03/03/2021 11:50am BP Systolic 102 mmHg BP Diastolic 82 mmHg Heart Rate 58 /min Height 70 inches 5'10" Weight 262.00 lb O2 % BldC Oximetry 99 % RM Air BMI (Body Mass Index) 37.6 kg/m2 Results Test Acquired Date Facility Test Result H/L Range Note Basic Metabolic Panel 03/08/2021 [facility] Sales Process Manager: Dr Martín Gregorio [place] [id number] [phone] Glucose 108 mg/dL High 74 - 99 1 BUN 18 mg/dL 7 - 18 Creatinine 0.8 mg/dL 0.6 - 1.3 Sodium 136 mEq/L 136 - 145 Potassium 4.3 mEq/L 3.5 - 5.1 Chloride 100 mEq/L 98 - 107 Carbon Dioxide 31 mEq/L 21 - 32 Calcium 9.5 mg/dL 8.5 - 10.1 GFR >= 60 mL/min >60 GFR >= 60 mL/min >60 2 Laboratory test finding 03/08/2021 [facility] Sales Process Manager: CARMELA Guzmán [id number] [phone] Magnesium 1.9 mg/dL 1.8 - 2.4 Laboratory test finding 03/03/2021 [facility] bush Sales Process Manager: Dr Martín [place] [address] [phone] Magnesium 1.5 mg/dL Low 1.8 - 2.4 Basic Metabolic Panel 03/03/2021 [facility] Sales Process Manager: Dr Martín [place] [address] [phone] Glucose 175 mg/dL High 74 - 99 3 BUN 21 mg/dL High 7 - 18 Creatinine 0.7 mg/dL 0.6 - 1.3 Sodium 140 mEq/L 136 - 145 Potassium 4.4 mEq/L 3.5 - 5.1 Chloride 104 mEq/L 98 - 107 Carbon Dioxide 31 mEq/L 21 - 32 Calcium 9.2 mg/dL 8.5 - 10.1 GFR >= 60 mL/min >60 GFR >= 60 mL/min >60 4 Laboratory test finding 02/28/2021 [facility] [address] [id number] [phone] Hepatitis B Surface Antibody NEGATIVE Normal Pos itive Ua Dipstick Only 02/28/2021 [facility] Tabor Sales Process Manager: Dr Martín Sanchez [place] [id number] [phone] Urine Color YELLOW Yellow Urine Appearance CLEAR Clear Urine PH 6.0 units 5.0 - 9.0 Urine Specific [place] 1.020 1.005 - 1.030 Urine Leukocytes NEGATIVE Negative Urine Blood NEGATIVE Negative Urine Protein NEGATIVE Negative -Trace Urine Glucose NEGATIVE mg/dL Negative Urine Nitrite NEGATIVE Negative Urine Ketone NEGATIVE mg/dL Negative Urine Bilirubin NEGATIVE Negative Urine Urobilinogen 0.2 mg/dL 0.2 - 1.0 Comprehensive Chem Profile 02/28/2021 [facility] sethi Sales Process Manager: Dr Martín [place] [address] [phone] Glucose 111 mg/dL High 74 - 99 5 BUN 18 mg/dL 7 - 18 Creatinine 0.7 mg/dL 0.6 - 1.3 Sodium 140 mEq/L 136 - 145 Potassium 4.0 mEq/L 3.5 - 5.1 Chloride 103 mEq/L 98 - 107 Carbon Dioxide 29 mEq/L 21 - 32 Calcium 9.5 mg/dL 8.5 - 10.1 Alk. Phosphatase 63 mg/dL 46 - 116 Total Bilirubin 0.7 mg/dL 0.2 - 1.0 Ast (Sgot) 27 U/L 15 - 37 Alt (SGPT) 30 U/L 12 - 78 Albumin 3.3 g/dL Low 3.4 - 5.0 Total Protein 7.6 g/dL 6.4 - 8.2 A/G Ratio 0.77 CALC Low 1.00 - 1.90 GFR >= 60 mL/min >60 GFR >= 60 mL/min >60 6 Complete Blood Count 02/28/2021 [facility] Sales Process Manager: Dr Martín [place] [address] [phone] WBC 9.2 x10*3/UL 4.1 - 10.9 RBC 4.40 x10*6/UL 4.20 - 6.30 Hemoglobin 12.8 g/dL 12.0 - 18.0 Hematocrit 38.8 % 37.0 - 51.0 MCV 88.2 fL 80.0 - 97.0 MCH 29.1 pg 26.0 - 32.0 MCHC 33.0 g/dL 31.0 - 38.0 RDW 13.9 % High 11.6 - 13.7 PLT 236 x10*3/UL 140 - 440 MPV 8.5 FL 7.8 - 11.0 Lymph % 20.5 % 10.0 - 58.5 Mid % 5.1 % 1.7 - 9.3 Neut % 74.4 % 37.0 - 92.0 Lymph # 1.9 x10*3/UL 0.6 - 4.1 Mid # 0.4 x10*3/UL 0.1 - 0.6 Neut # 6.9 x10*3/UL 2.0 - 7.8 Laboratory test finding 02/28/2021 [facility] [address] [place] [address] [phone] Hepatitis B Surface Antibody <pending> Hepatitis Profile 02/28/2021 [facility] nter [address] [place] [address] [phone] Hepatitis C Virus Kelly Index 0.1 INDEX Normal <0.8 7 Hepatitis B Surface Antigen NEGATIVE Normal Negative Hepatitis B Core Antibody Igm NEGATIVE Normal Negative Hepatitis A Antibody Igm NEGATIVE Normal Negative Laboratory test finding 02/28/[address] [address] [phone] Ferritin 33 NG/ML Normal 26-388 Total Iron Binding Capacit 02/28/[address] [address] [phone] Iron (Fe) 52 g/dL Low 65-175 Total Iron Binding Capacity 456 g/dL High 250-450 Percent Saturation 11.4 % Low 19.7-50.0 Laboratory test finding 02/28/[address] [address] [phone] Ammonia 48 uMOL/L High <32 Prothrombin Time/Inr 02/28/2021 [facility] enter [address] [place] [address] [phone] Prothrombin Time 15.4 seconds High 12.7-14.5 Inr 1.18 Normal 8 CBC With Differential 02/23/[address] [address] [phone] White Blood Count 10.8 10 High 4.0-10.0 Red Blood Count 4.15 10 Low 4.30-6.10 Hemoglobin 12.4 g/dL Low 13.5-17.5 Hematocrit 38.4 % Low 42.0-52.0 Mean Corpuscular Volume 92.5 fl Normal 80.0-96.0 Mean Corpuscular Hemoglobin 29.9 pg Normal 27.0-33.0 Mean Corpuscular HGB Conc 32.3 g/dL Normal 32.0-36.5 Red Cell Distribution Width 13.8 % Normal 11.5-14.5 Platelet Count, Automated 211 10 Normal 150-450 Neutrophils % 66.8 % High 36.0-66.0 Lymph % 19.9 % Low 24.0-44.0 Roane % 9.5 % High 2.0-8.0 Eos % 2.3 % Normal 0.0-3.0 Baso % 1.1 % High 0.0-1.0 Immature Granulocyte % 0.4 % Normal 0-3.0 Nucleated Red Blood Cell % 0.0 % Normal 0-0 Neutrophils # 7.2 10 Normal 1.5-8.5 Lymph # 2.1 10 Normal 1.5-5.0 Roane # 1.0 10 High 0.0-0.8 Eos # 0.3 10 Normal 0.0-0.5 Baso # 0.1 10 Normal 0.0-0.2 Istat Chem8+ Panel 02/23/2021 [facility] nter [address] [place] [phone] [phone] iSTAT HCT 37.0 % Low 38.0-51.0 iSTAT Glucose 145 mg/dL High 70-105 iSTAT Sodium 138 mEq/L Normal 136-145 iSTAT Potassium 4.3 mEq/L Normal 3.5-5.1 iSTAT CA++ 5.2 mg/dL Normal 4.5-5.3 iSTAT Chloride 100 mEq/L Normal 98-109 iSTAT Co2 27.0 MM/L Normal 23.0-27.0 iSTAT BUN 20 mg/dL Normal 8-26 iSTAT Creatinine 0.8 mg/dL Normal 0.6-1.3 Laboratory test finding 02/23/[address] [address] [phone] iSTAT Troponin 0.00 NG/ML Normal 0.00-0.08 Laboratory test finding 02/23/[address] [address] [phone] NT-Pro BNP 303 pg/mL High <125 Lipase 249 U/L Normal 73-393 Thyroid Stimulating Hormone 1.080 uIU/ML Normal 0.358-3.740 Free T4 1.07 ng/dL Normal 0.76-1.46 Liver Profile 02/23/2021 [facility] nter [address] [place] [phone] Ast/Sgot 24 U/L Normal 7-37 Alt/SGPT 32 U/L Normal 12-78 Alkaline Phosphatase 67 U/L Normal 45-117 Bilirubin,Total 0.9 mg/dL Normal 0.2-1.0 Bilirubin,Direct 0.3 mg/dL High 0.0-0.2 Total Protein 7.2 GM/DL Normal 6.4-8.2 Albumin 3.1 GM/DL Low 3.2-5.2 Albumin/Globulin Ratio 0.8 Normal Cardiac Marker Panel 02/23/2021 [facility] enter [address] [place] [address] [phone] CPK Creatine Phosphokinase 102 U/L Normal 39-30 8 CK-MB Value Mass 3.3 NG/ML Normal <3.6 MB/CK Relative Index 3.24 Normal < Or =4 9 Troponin I < 0.02 NG/ML Normal < 0.10 10 Influenza A/B RSV Covid Amp 02/23/2021 [facility] [address] [place] [address] [phone] Influenza A Amplification NEGATIVE Normal Negati ve 11 Influenza B Amplification NEGATIVE Normal Negative 12 RSV Amplification NEGATIVE Normal Negative 13 Sars Covid-19 Amplification NEGATIVE Normal Negative 14 Laboratory test finding 02/23/2021 [facility] [address] [place] [address] [phone] iSTAT Troponin 0.00 NG/ML Normal 0.00-0.08 Laboratory test finding 02/23/2021 [facility] [address] [place] [address] [phone] iSTAT Troponin 0.01 NG/ML Normal 0.00-0.08 A1c 01/31/2021 [facility] Sales Process Manager: Dr Martín Sanchez [place] [id number] [phone] Hba1c 6.9 % High <5.7 15 Est Avg Glucose 151 mg/dL High 60 - 110 Laboratory test finding 01/31/2021 [facility], Sales Process Manager: Dr Martín Sanchez [place] [id number] [phone] Magnesium 1.6 mg/dL Low 1.8 - 2.4 Comprehensive Chem Profile 01/31/2021 [facility] Sales Process Manager: Dr Martín [place] [address] [phone] Glucose 75 mg/dL 74 - 99 16 BUN 14 mg/dL 7 - 18 Creatinine 0.7 mg/dL 0.6 - 1.3 Sodium 139 mEq/L 136 - 145 Potassium 4.5 mEq/L 3.5 - 5.1 Chloride 103 mEq/L 98 - 107 Carbon Dioxide 30 mEq/L 21 - 32 Calcium 9.5 mg/dL 8.5 - 10.1 Alk. Phosphatase 63 mg/dL 46 - 116 Total Bilirubin 0.8 mg/dL 0.2 - 1.0 Ast (Sgot) 27 U/L 15 - 37 Alt (SGPT) 35 U/L 12 - 78 Albumin 3.4 g/dL 3.4 - 5.0 Total Protein 7.2 g/dL 6.4 - 8.2 A/G Ratio 0.89 CALC Low 1.00 - 1.90 GFR >= 60 mL/min >60 GFR >= 60 mL/min >60 17 Complete Blood Count 11/10/2020 [facility] Sales Process Manager: Dr Martín [place] [address] [phone] WBC 9.0 x10*3/UL 4.1 - 10.9 RBC 4.70 x10*6/UL 4.20 - 6.30 Hemoglobin 14.4 g/dL 12.0 - 18.0 Hematocrit 43.1 % 37.0 - 51.0 MCV 91.7 fL 80.0 - 97.0 MCH 30.7 pg 26.0 - 32.0 MCHC 33.5 g/dL 31.0 - 38.0 RDW 12.9 % 11.6 - 13.7 PLT 237 x10*3/UL 140 - 440 MPV 8.2 FL 7.8 - 11.0 Lymph % 20.4 % 10.0 - 58.5 Mid % 5.7 % 1.7 - 9.3 Neut % 73.9 % 37.0 - 92.0 Lymph # 1.8 x10*3/UL 0.6 - 4.1 Mid # 0.6 x10*3/UL 0.1 - 0.6 Neut # 6.6 x10*3/UL 2.0 - 7.8 A1c 11/10/2020 [facility] Sales Process Manager: Dr Martín Sanchez [place], [place] [id number] [phone] Hba1c 6.7 % High <5.7 18 Est Avg Glucose 146 mg/dL High 60 - 110 Comprehensive Chem Profile 11/10/2020 [facility] sethi Sales Process Manager: Dr Martín Sanchez [place], [place] [address]679 [phone] Glucose 104 mg/dL High 74 - 99 19 BUN 14 mg/dL 7 - 18 Creatinine 0.7 mg/dL 0.6 - 1.3 Sodium 137 mEq/L 136 - 145 Potassium 4.5 mEq/L 3.5 - 5.1 Chloride 103 mEq/L 98 - 107 Carbon Dioxide 28 mEq/L 21 - 32 Calcium 9.8 mg/dL 8.5 - 10.1 Alk. Phosphatase 67 mg/dL 46 - 116 Total Bilirubin 0.9 mg/dL 0.2 - 1.0 Ast (Sgot) 24 U/L 15 - 37 Alt (SGPT) 27 U/L 12 - 78 Albumin 3.4 g/dL 3.4 - 5.0 Total Protein 7.4 g/dL 6.4 - 8.2 A/G Ratio 0.85 CALC Low 1.00 - 1.90 GFR >= 60 mL/min >60 GFR >= 60 mL/min >60 20 Complete Blood Count 09/08/2020 [facility] shukri gordon Sales Process Manager: Dr Martín Sanchez [place], [place] [id number] [phone] WBC 10.3 x10*3/UL 4.1 - 10.9 RBC 4.88 x10*6/UL 4.20 - 6.30 Hemoglobin 15.9 g/dL 12.0 - 18.0 Hematocrit 46.2 % 37.0 - 51.0 MCV 94.7 fL 80.0 - 97.0 MCH 32.6 pg High 26.0 - 32.0 MCHC 34.4 g/dL 31.0 - 38.0 RDW 12.2 % 11.6 - 13.7 PLT 269 x10*3/UL 140 - 440 MPV 8.5 FL 7.8 - 11.0 Lymph % 22.1 % 10.0 - 58.5 Mid % 5.8 % 1.7 - 9.3 Neut % 72.1 % 37.0 - 92.0 Lymph # 2.2 x10*3/UL 0.6 - 4.1 Mid # 0.7 x10*3/UL High 0.1 - 0.6 Neut # 7.4 x10*3/UL 2.0 - 7.8 A1c 09/08/2020 [facility] Sales Process Manager: Dr Martín [place] [address] [phone] Hba1c 6.7 % High <5.7 21 Est Avg Glucose 146 mg/dL High 60 - 110 Comprehensive Chem Profile 09/08/2020 [facility] Sales Process Manager: Dr Martín [place] [address] [phone] Glucose 113 mg/dL High 74 - 99 22 BUN 14 mg/dL 7 - 18 Creatinine 0.8 mg/dL 0.6 - 1.3 Sodium 135 mEq/L Low 136 - 145 Potassium 3.9 mEq/L 3.5 - 5.1 Chloride 99 mEq/L 98 - 107 Carbon Dioxide 30 mEq/L 21 - 32 Calcium 9.7 mg/dL 8.5 - 10.1 Alk. Phosphatase 76 mg/dL 46 - 116 Total Bilirubin 1.1 mg/dL High 0.2 - 1.0 Ast (Sgot) 42 U/L High 15 - 37 Alt (SGPT) 59 U/L 12 - 78 Albumin 3.3 g/dL Low 3.4 - 5.0 Total Protein 7.7 g/dL 6.4 - 8.2 A/G Ratio 0.75 CALC Low 1.00 - 1.90 GFR >= 60 mL/min >60 GFR >= 60 mL/min >60 23 1 100-125 mg/dL PRE-DIABET ES/FASTING >126 mg/dL DIABETES/FASTING 2 CHRONIC KIDNEY DISEASE STAGI NG PER NKF STAGE I & II GFR >= 60 NORMAL TO MILDLY DECREASED STAGE III GFR 30-59 MODERATELY DECREASED STAGE IV GFR 15-29 SEVERELY DECREASED STAGE V GFR <15 VERY LITTLE GFR LEFT ESRD GFR <15 ON POSITION CLASSIFIER 3 100-125 mg/dL PRE-DIABET ES/FASTING >126 mg/dL DIABETES/FASTING 4 CHRONIC KIDNEY DISEASE STAGI NG PER NKF STAGE I & II GFR >= 60 NORMAL TO MILDLY DECREASED STAGE III GFR 30-59 MODERATELY DECREASED STAGE IV GFR 15-29 SEVERELY DECREASED STAGE V GFR <15 VERY LITTLE GFR LEFT ESRD GFR <15 ON POSITION CLASSIFIER 5 100-125 mg/dL PRE-DIABET ES/FASTING >126 mg/dL DIABETES/FASTING 6 CHRONIC KIDNEY DISEASE STAGI NG PER NKF STAGE I & II GFR >= 60 NORMAL TO MILDLY DECREASED STAGE III GFR 30-59 MODERATELY DECREASED STAGE IV GFR 15-29 SEVERELY DECREASED STAGE V GFR <15 VERY LITTLE GFR LEFT ESRD GFR <15 ON POSITION CLASSIFIER 7 Negative Not infected with HCV, unless recent infection is suspected or other evidence exists to indicate HCV infection. 8 THERAPUTIC HUMAN INR VALUES INDICATIONS NORMAL RANGES PROPHYLAXIS/TREATMENT OF: VENOUS THROMBOSIS 2.0-3.0 PULMONARY EMBOLISM 2.0-3.0 PREVENTION OF SYSTEMIC EMBOLISM FROM: TISSUE HEART VALVES 2.0-3.0 ACUTE MYOCARDIAL INFARCTION 2.0-3.0 VALVULAR HEART DISEASE 2.0-3.0 ATRIAL FIBRILLATION 2.0-3.0 MECHANICAL VALVES(HIGH RISK) 2.5-3.5 RECURRENT MYOCARDIAL INFARCTION 2.5-3.5 9 DIAGNOSIS CRITERIA MMB ng/ml Relative Index (RI) NON-AMI < or = 5 N/A ENRIQUEZ ZONE > 5 < or = 4 AMI > 5 > 4 10 Troponin I Reference Interva l for Siemens [employer] LOCI: 99th Percentile= 0.00-0.045 ng/ml Risk Stratification: <= 0.10 ng/ml Decreased Risk for Adverse Clinical Events. 0.10-1.50 ng/ml Increased Risk for Adv erse Clinical Events. Evaluation of additional criterion and/or repeat testing in 2-6 hours is suggested to rule out myocardial damage. >= 1.50 ng/ml Indicative of Myocardial Injury. 11 Negative results do not prec lude influenza or RSV virus infection and should not be used as the sole basis for treatment or other patient management decisions. 12 Negative results do not prec lude influenza or RSV virus infection and should not be used as the sole basis for treatment or other patient management decisions. 13 Negative results do not prec lude influenza or RSV virus infection and should not be used as the sole basis for treatment or other patient management decisions. 14 A false negative result may occur if a specimen is improperly collected, transported or handled. False negative results may also occur if inadequate numbers of organisms are present in the specimen. As with any molecular test, mutations within the target regions of Xpert Xpress SARS-CoV-2 could affect primer and/or probe binding resulting in failure to detect the presence of virus. This test cannot rule out diseases caused by other bacterial or viral pathogens. DISCLAIMER: Testing was performed using the [employer] SARS-CoV-2 test. This test was developed and its performance characteristics determined by [employer]. This test has not been FDA cleared or approved. This test has been authorized by FDA under an Emergency Use Authorization (EUA). This test is only authorized for the duration of time the declaration that circumstances exist justifying the authorization of the emergency use of in vitro diagnostic tests for detection of SARS-CoV-2 virus and/or diagnosis of COVID-19 infection under section 564(b)(1) of the Act, 21 U.S.C. 360bbb-3(b)(1), unless the authorization is terminated or revoked sooner. 15 Lab Result Notes: Pre-Diabetes 5.7 - 6.4 % Diabetes = or > 6.5% 16 100-125 mg/dL PRE-DIABET ES/FASTING >126 mg/dL DIABETES/FASTING 17 CHRONIC KIDNEY DISEASE STAGI NG PER NKF STAGE I & II GFR >= 60 NORMAL TO MILDLY DECREASED STAGE III GFR 30-59 MODERATELY DECREASED STAGE IV GFR 15-29 SEVERELY DECREASED STAGE V GFR <15 VERY LITTLE GFR LEFT ESRD GFR <15 ON POSITION CLASSIFIER 18 Lab Result Notes: Pre-Diabetes 5.7 - 6.4 % Diabetes = or > 6.5% 19 100-125 mg/dL PRE-DIABET ES/FASTING >126 mg/dL DIABETES/FASTING 20 CHRONIC KIDNEY DISEASE STAGI NG PER NKF STAGE I & II GFR >= 60 NORMAL TO MILDLY DECREASED STAGE III GFR 30-59 MODERATELY DECREASED STAGE IV GFR 15-29 SEVERELY DECREASED STAGE V GFR <15 VERY LITTLE GFR LEFT ESRD GFR <15 ON POSITION CLASSIFIER 21 Lab Result Notes: Pre-Diabetes 5.7 - 6.4 % Diabetes = or > 6.5% 22 100-125 mg/dL PRE-DIABET ES/FASTING >126 mg/dL DIABETES/FASTING 23 CHRONIC KIDNEY DISEASE STAGI NG PER NKF STAGE I & II GFR >= 60 NORMAL TO MILDLY DECREASED STAGE III GFR 30-59 MODERATELY DECREASED STAGE IV GFR 15-29 SEVERELY DECREASED STAGE V GFR <15 VERY LITTLE GFR LEFT ESRD GFR <15 ON POSITION CLASSIFIER Procedures Date Code Description Status 03/03/2021 13732 Office/Outpatient Established Mo d MDM 30-39 Min Completed 02/28/2021 20864 Office/Outpatient Established Mo d MDM 30-39 Min Completed 01/31/2021 00226 Office/Outpatient Established Mo d MDM 30-39 Min Completed 01/31/2021 40091 EKG/Interpretation & Report Comp leted 11/10/2020 52609 Office/Outpatient Established Mo d MDM 30-39 Min Completed 11/09/2020 [id number] Colonoscopy Completed 09/08/2020 35162 Trans Care SRV W/I 14D Of DC, Co mm W/I 2 Dys Med Rec Completed 01/21/2019 [id number] Colonoscopy Completed 12/10/2018 [id number] Colonoscopy Completed 11/13/2018 [id number] Diabetic Retinal Eye Exam Comple nory 06/22/2015 [id number] Diabetic Retinal Eye Exam Comple [facility] Medical Devices Description No Information Available Encounters Type Date Location Provider Dx Diagnosis Office Visit 03/03/2021 11:40a [facility] Crystal Sanchez DO G93.40 Encephalopathy, unspecified G47.01 Insomnia due to medical cond ition K70.30 Alcoholic cirrhosis of liver without ascites R60.9 Edema, unspecified I48.91 Unspecified atrial fibrillat ion Z79.01 long-term (current) use of a nticoagulants D64.9 Anemia, unspecified E83.42 Hypomagnesemia Office Visit 02/28/2021 10:40a [facility] DO G93.40 Encephalopathy, unspecified G47.01 Insomnia due to medical cond ition K70.30 Alcoholic cirrhosis of liver without ascites R60.9 Edema, unspecified I48.91 Unspecified atrial fibrillat ion Z79.01 long-term (current) use of a nticoagulants D64.9 Anemia, unspecified I10 Essential (primary) hyperten margie Office Visit 01/31/2021 1:40p [facility] Sanchez DO Z01.810 Encounter for preprocedural cardiovascular examination M25.511 Pain in right shoulder I48.91 Unspecified atrial fibrillat ion 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01 Insomnia due to medical conditio n Christopher Steedman, DO 03/03/2021 K70.30 Alcoholic cirrhosis of liver wit hout ascites Shaileshopher Steedman, DO 03/03/2021 R60.9 Edema, unspecified Christopher K ellogg, DO 03/03/2021 I48.91 Unspecified atrial fibrillation Douglaser Steedman, DO 03/03/2021 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 Milton Steedman, DO 03/03/2021 D64.9 Anemia, unspecified Shaileshopher Steedman, DO 03/03/2021 E83.42 Hypomagnesemia Christopher Denisha ogg, DO 02/28/2021 G93.40 Encephalopathy, unspecified Chri stopher Steedman, DO 02/28/2021 G47.01 Insomnia due to medical conditio n Christopher Steedman, DO 02/28/2021 K70.30 Alcoholic cirrhosis of liver wit hout ascites Shaileshopher Steedman, DO 02/28/2021 R60.9 Edema, unspecified Christopher K ellogg, DO 02/28/2021 I48.91 Unspecified atrial fibrillation Douglaser Steedman, DO 02/28/2021 Z79.01 long-term (current) use of antic oagulants Shaileshopher Lisseth, DO 02/28/2021 D64.9 Anemia, unspecified Christopher Lisseth, DO 02/28/2021 I10 Essential (primary) hypertension Milton Sanchez, DO 01/31/2021 Z01.810 Encounter for preprocedural card iovascular examination Milton Sanchez, DO 01/31/2021 M25.511 Pain in right shoulder Douglas Sanchez, DO 01/31/2021 I48.91 Unspecified atrial fibrillation Shaileshluna Sanchez, DO 01/31/2021 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 11/10/2020 I48.91 Unspecified atrial fibrillation Nader Goldman M.D. 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 11/10/2020 E11.9 Type 2 diabetes mellitus without complications Nader Goldman M.D. 11/10/2020 K70.9 Alcoholic liver disease, unspeci fied Nader Goldman M.D. 11/10/2020 F34.1 Dysthymic disorder Nader combs M.D. 11/10/2020 G47.33 Obstructive sleep apnea (adult) (pediatric) Nader Goldman M.D. 11/10/2020 K21.9 Gastro-esophageal reflux disease without esophagitis Nader Goldman M.D. 11/10/2020 G25.81 Restless legs syndrome Nader Goldman M.D. 11/10/2020 I10 Essential (primary) hypertension Nader Goldman M.D. 11/10/2020 Z85.038 Personal history of other malignant neoplasm of large intestine Nader Goldman M.D. 11/10/2020 Z91.14 Patient's other noncompliance wi th medication regimen Nader Goldman M.D. 09/08/2020 I48.91 Unspecified atrial fibrillation Nader Goldman M.D. 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 09/08/2020 Z91.14 Patient's other noncompliance wi th medication regimen Nader Goldman M.D. 09/08/2020 E11.9 Type 2 diabetes mellitus without complications Nader Goldman M.D. 09/08/2020 K70.9 Alcoholic liver disease, unspeci fied Nader Goldman M.D. 09/08/2020 F34.1 Dysthymic disorder Nader combs M.D. 09/08/2020 G47.33 Obstructive sleep apnea (adult) (pediatric) Nader Goldman M.D. 09/08/2020 K21.9 Gastro-esophageal reflux disease without esophagitis Nader Goldman M.D. 09/08/2020 Z85.038 Personal history of other malignant neoplasm of large intestine Nader Goldman M.D. Plan of Treatment Future Appointment(s):* 03/15/2021 11:00 am - Milton Sanchez DO at [facility] * 03/31/2021 2:30 pm - Nader Goldman M.D. at [facility] 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 Hyperlipidemia: Await for labs. Good results prior with Lipitor. He will continue to maintain a low cholesterol diet and regular exercise regimen. We will continue to monitor.2. Atrial fibrillation: Rate is controlled on current regimen, patient is anticoagulated. We will continue to monitor.3. 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 Type 2 diabetes mellitus without complications: We do await for labs. HgbA1c was controlled prior. He will continue with current regimen.5. Alcoholic liver disease: We do await for labs, otherwise he had mild elevations of LFTs prior in August 2020. Patient has stopped drinking alcohol since hospitalization (08/22/20) and I have encouraged him to remain sober. We will continue to monitor.6. Dysthymic disorder: Although patient feels good with half-tablet of Zoloft 50 mg daily, he is encouraged to take full tablet of Zoloft 50 mg daily if he feels his symptoms are not controlled. We will continue to monitor.7. NICHOLE: CPAP intolerance and has not been interested in further care.8. GERD without eso phagitis: Good results with omeprazole every other day, will continue and monitor.9. Restless legs syndrome: Doing well with Requip at bedtime, will continue and monitor.10. Hypertension: Well controlled on current, will continue and monitor.11. Personal history of malignant neoplasm of large intestine: Presence of total 3 polyps on colonoscopy that was done on 11/09/[address] Cates. Await pathology results and follow up colonoscopy in 3 years. We will continue to monitor.12. Patient's other noncompliance with medication regimen: He is not using prescribed CPAP and again I have reinforced the benefits of CPAP with sleep apnea.13. Joint pain: He will use Tylenol as directed to take the edge off the pain. Possible side effects associated with Aleve, ibuprofen and other NSAIDs discussed.. We will monitor.Ongoing cares: We discussed possible reason for his swelling including humidity and salt intake. He does have some varicose veins and I have reviewed echocardiogram from last summer which was reassuring. Education was done and was encouraged to apply lotion. Avoid scratching. We have discussed adding multivitamins to his regimen. He was given education regarding hiccups. We will obtain labs on his way out and he will follow up appropriately with lab results. I am going to see him again in 4 months with CMP, lipids, TSH, HgbA1c, CBC, ANNA and PSA. If he has new problems or issues sooner he will let us know. Functional Status Description No Information Available Mental Status Description No Information Available Referrals Description No Information Available
--- OUTSIDE RECORDS SUMMARY | 2021-03-14 14:08 | CCD ---
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 021 Metformin HCL 1000mg Tablets take [...] Sanchez MD 01/17/2018 Lancet Device With Ejector [facility] [place] directed 1unzana Goldman M.D. 06/20/2015 Lancets 30G 30G Misc test twice a day and as needed e11.9 200unzana Goldman M.D. 06/20/2015 [facility] blood [...] CPT Code Status Date Vaccine Lot # [id number] Given 01/08/2020 Pneumovax 23 [id number] Given 03/26/2012 Influenza Virus Vaccine [id number] Refused 05/13/2018 Influenza Virus Vaccine, Quadrivalent ([id number]), Derived From Cell [id number] Refused 03/26/2012 Adacel- Tetanus Diphtheria P ertussis [...] H/L Range Note Basic Metabolic Panel 03/08/2021 [facility] Hot Head Machine Operator: Dr Martín Gregorio [place] [id number] [phone] Glucose 108 mg/dL High 74 - 99 [...] mL/min >60 2 Laboratory test finding 03/08/2021 [facility] Hot Head Machine Operator: CARMELA Guzmán [id number] [phone] Magnesium 1.9 mg/dL 1.8 - 2.4 Laboratory test finding 03/03/2021 [facility] shukri bush Hot Head Machine Operator: Dr Martín [place] [address] [phone] Magnesium 1.5 mg/dL Low 1.8 - 2.4 Basic Metabolic Panel 03/03/2021 [facility]ri Hot Head Machine Operator: Dr Martín [place] [address] [phone] Glucose 175 mg/dL High 74 - 99 [...] mL/min >60 4 Laboratory test finding 02/28/2021 [facility] [address] [id number] [phone] Hepatitis B Surface Antibody NEGATIVE Normal Pos itive Ua Dipstick Only 02/28/2021 [facility] Tabor Hot Head Machine Operator: Dr Martín Sanchez [place] [id number] [phone] Urine Color YELLOW Yellow Urine Appearance CLEAR Clear Urine PH 6.0 units 5.0 - 9.0 Urine Specific Vernon 1.020 1.005 - 1.030 Urine Leukocytes NEGATIVE Negative Urine Blood NEGATIVE Negative Urine Protein NEGATIVE Negative -Trace Urine Glucose NEGATIVE mg/dL Negative Urine Nitrite NEGATIVE Negative Urine Ketone NEGATIVE mg/dL Negative Urine Bilirubin NEGATIVE Negative Urine Urobilinogen 0.2 mg/dL 0.2 - 1.0 Comprehensive Chem Profile 02/28/2021 [facility] sethi Hot Head Machine Operator: Dr Martín [place] [address] [phone] Glucose 111 mg/dL High 74 - 99 [...] mL/min >60 6 Complete Blood Count 02/28/2021 [facility] Hot Head Machine Operator: Dr Martín [place] [address] [phone] WBC 9.2 x10*3/UL 4.1 - 10.9 RBC [...] 2.0 - 7.8 Laboratory test finding 02/28/2021 [facility] [address] [place] [address] [phone] Hepatitis B Surface Antibody <pending> Hepatitis Profile 02/28/2021 [facility] [address] [place] [address] [phone] Hepatitis C Virus Kelly Index 0.1 INDEX Normal <0.8 7 Hepatitis B Surface Antigen NEGATIVE Normal Negative Hepatitis B Core Antibody Igm NEGATIVE Normal Negative Hepatitis A Antibody Igm NEGATIVE Normal Negative Laboratory test finding 02/28/[address] [address] [phone] Ferritin 33 NG/ML Normal 26-388 Total Iron Binding Capacit 02/28/[address] [address] [phone] Iron (Fe) 52 g/dL Low 65-175 Total Iron Binding Capacity 456 g/dL High 250-450 Percent Saturation 11.4 % Low 19.7-50.0 Laboratory test finding 02/28/[address] [address] [phone] Ammonia 48 uMOL/L High <32 Prothrombin Time/Inr 02/28/2021 [facility] enter [address] [place] [address] [phone] Prothrombin Time 15.4 seconds High 12.7-14.5 Inr 1.18 Normal 8 CBC With Differential 02/23/[address] [address] [phone] White Blood Count 10.8 10 High 4.0-10.0 [...] 36.0-66.0 Lymph % 19.9 % Low 24.0-44.0 Bradford % 9.5 % High 2.0-8.0 Eos % 2.3 % Normal 0.0-3.0 Baso % 1.1 % High 0.0-1.0 Immature Granulocyte % 0.4 % Normal 0-3.0 Nucleated Red Blood Cell % 0.0 % Normal 0-0 Neutrophils # 7.2 10 Normal 1.5-8.5 Lymph # 2.1 10 Normal 1.5-5.0 Bradford # 1.0 10 High 0.0-0.8 Eos # 0.3 10 Normal 0.0-0.5 Baso # 0.1 10 Normal 0.0-0.2 Istat Chem8+ Panel 02/23/2021 [facility] [address] [place] [address] [phone] iSTAT HCT 37.0 % Low 38.0-51.0 iSTAT Glucose 145 mg/dL High 70-105 iSTAT Sodium 138 mEq/L Normal 136-145 iSTAT Potassium 4.3 mEq/L Normal 3.5-5.1 iSTAT CA++ 5.2 mg/dL Normal 4.5-5.3 iSTAT Chloride 100 mEq/L Normal 98-109 iSTAT Co2 27.0 MM/L Normal 23.0-27.0 iSTAT BUN 20 mg/dL Normal 8-26 iSTAT Creatinine 0.8 mg/dL Normal 0.6-1.3 Laboratory test finding 02/23/[address] [address] [phone] iSTAT Troponin 0.00 NG/ML Normal 0.00-0.08 Laboratory test finding 02/23/[address] [address] [phone] NT-Pro BNP 303 pg/mL High <125 Lipase 249 U/L Normal 73-393 Thyroid Stimulating Hormone 1.080 uIU/ML Normal 0.358-3.740 Free T4 1.07 ng/dL Normal 0.76-1.46 Liver Profile 02/23/2021 [facility] [address] [place] [address] [phone] Ast/Sgot 24 U/L Normal 7-37 Alt/SGPT 32 U/L Normal 12-78 Alkaline Phosphatase 67 U/L Normal 45-117 Bilirubin,Total 0.9 mg/dL Normal 0.2-1.0 Bilirubin,Direct 0.3 mg/dL High 0.0-0.2 Total Protein 7.2 GM/DL Normal 6.4-8.2 Albumin 3.1 GM/DL Low 3.2-5.2 Albumin/Globulin Ratio 0.8 Normal Cardiac Marker Panel 02/23/2021 [facility] enter [address] [place] [address] [phone] CPK Creatine Phosphokinase 102 U/L Normal 39-30 8 CK-MB Value Mass 3.3 NG/ML Normal <3.6 MB/CK Relative Index 3.24 Normal < Or =4 9 Troponin I < 0.02 NG/ML Normal < 0.10 10 Influenza A/B RSV Covid Amp 02/23/2021 [facility] [address] [place] [address] [phone] Influenza A Amplification NEGATIVE Normal Negati ve 11 Influenza B Amplification NEGATIVE Normal Negative 12 RSV Amplification NEGATIVE Normal Negative 13 Sars Covid-19 Amplification NEGATIVE Normal Negative 14 Laboratory test finding 02/23/2021 [facility] [address] [place] [address] [phone] iSTAT Troponin 0.00 NG/ML Normal 0.00-0.08 Laboratory test finding 02/23/2021 [facility] [address] [place] [address] [phone] iSTAT Troponin 0.01 NG/ML Normal 0.00-0.08 A1c 01/31/2021 [facility] Hot Head Machine Operator: Dr Martín Sanchez [place] [id number] [phone] Hba1c 6.9 % High <5.7 15 Est Avg Glucose 151 mg/dL High 60 - 110 Laboratory test finding 01/31/2021 [facility], Hot Head Machine Operator: Dr Martín Sanchez [place] [id number] [phone] Magnesium 1.6 mg/dL Low 1.8 - 2.4 Comprehensive Chem Profile 01/31/2021 [facility] Hot Head Machine Operator: Dr Martín [place] [address] [phone] Glucose 75 mg/dL 74 - 99 16 [...] mL/min >60 17 Complete Blood Count 11/10/2020 [facility] Hot Head Machine Operator: Dr Martín [place] [address] [phone] WBC 9.0 x10*3/UL 4.1 - 10.9 RBC [...] 6.6 x10*3/UL 2.0 - 7.8 A1c 11/10/2020 [facility] Hot Head Machine Operator: Dr Martín Sanchez [place], [place] [id number] [phone] Hba1c 6.7 % High <5.7 18 Est Avg Glucose 146 mg/dL High 60 - 110 Comprehensive Chem Profile 11/10/2020 [facility]uk[facility] sethi Hot Head Machine Operator: Dr Martín Sanchez [place], [place] [id number] [phone] Glucose 104 mg/dL High 74 - 99 [...] mL/min >60 20 Complete Blood Count 09/08/2020 [facility] shukri gordon Hot Head Machine Operator: Dr Martín Sanchez [place], [place] [id number] [phone] WBC 10.3 x10*3/UL 4.1 - 10.9 RBC [...] 7.4 x10*3/UL 2.0 - 7.8 A1c 09/08/2020 [facility] Hot Head Machine Operator: Dr Martín [place] [address] [phone] Hba1c 6.7 % High <5.7 21 Est Avg Glucose 146 mg/dL High 60 - 110 Comprehensive Chem Profile 09/08/2020 [facility] Hot Head Machine Operator: Dr Martín [place] [address] [phone] Glucose 113 mg/dL High 74 - 99 [...] LITTLE GFR LEFT ESRD GFR <15 ON LAWN SERVICE SUPERVISOR 3 100-125 mg/dL PRE-DIABET ES/FASTING >126 mg/dL DIABETES/FASTING 4 CHRONIC KIDNEY DISEASE STAGI NG PER NKF STAGE I & II GFR >= 60 NORMAL TO MILDLY DECREASED STAGE III GFR 30-59 MODERATELY DECREASED STAGE IV GFR 15-29 SEVERELY DECREASED STAGE V GFR <15 VERY LITTLE GFR LEFT ESRD GFR <15 ON LAWN SERVICE SUPERVISOR 5 100-125 mg/dL PRE-DIABET ES/FASTING >126 mg/dL DIABETES/FASTING 6 CHRONIC KIDNEY DISEASE STAGI NG PER NKF STAGE I & II GFR >= 60 NORMAL TO MILDLY DECREASED STAGE III GFR 30-59 MODERATELY DECREASED STAGE IV GFR 15-29 SEVERELY DECREASED STAGE V GFR <15 VERY LITTLE GFR LEFT ESRD GFR <15 ON LAWN SERVICE SUPERVISOR 7 Negative Not infected with HCV, unless [...] Troponin I Reference Interva l for Siemens Zapproved LOCI: 99th Percentile= 0.00-0.045 ng/ml Risk Stratification: [...] pathogens. DISCLAIMER: Testing was performed using the [employer] SARS-CoV-2 test. This test was developed and its performance characteristics determined by [employer]. This test has not been FDA cleared [...] LITTLE GFR LEFT ESRD GFR <15 ON LAWN SERVICE SUPERVISOR 18 Lab Result Notes: Pre-Diabetes 5.7 - [...] LITTLE GFR LEFT ESRD GFR <15 ON LAWN SERVICE SUPERVISOR 21 Lab Result Notes: Pre-Diabetes 5.7 - [...] LITTLE GFR LEFT ESRD GFR <15 ON LAWN SERVICE SUPERVISOR Procedures Date Code Description Status 03/03/2021 82116 Office/Outpatient Established Mo d MDM 30-39 Min Completed 02/28/2021 07580 Office/Outpatient Established Mo d MDM 30-39 Min Completed 01/31/2021 75695 Office/Outpatient Established Mo d MDM 30-39 Min Completed 01/31/2021 23962 EKG/Interpretation & Report Comp leted 11/10/2020 56867 Office/Outpatient Established Mo d MDM 30-39 Min Completed 11/09/2020 [id number] Colonoscopy Completed 09/08/2020 53950 Trans Care SRV W/I 14D Of DC, Co mm W/I 2 Dys Med Rec Completed 01/21/2019 [id number] Colonoscopy Completed 12/10/2018 [id number] Colonoscopy Completed 11/13/2018 [id number] Diabetic Retinal Eye Exam Comple nory 06/22/2015 [id number] Diabetic Retinal Eye Exam Comple [facility] Medical Devices Description No Information Available Encounters Type Date Location Provider Dx Diagnosis Office Visit 03/03/2021 11:40a [facility] Crystal Sanchez DO G93.40 Encephalopathy, unspecified G47.01 Insomnia due to medical cond ition K70.30 Alcoholic cirrhosis of liver without ascites R60.9 Edema, unspecified I48.91 Unspecified atrial fibrillat ion Z79.01 MCC (current) use of a nticoagulants D64.9 Anemia, unspecified E83.42 Hypomagnesemia Office Visit 02/28/2021 10:40a [facility] DO G93.40 Encephalopathy, unspecified G47.01 Insomnia due to medical cond ition K70.30 Alcoholic cirrhosis of liver without ascites R60.9 Edema, unspecified I48.91 Unspecified atrial fibrillat ion Z79.01 MCC (current) use of a nticoagulants D64.9 Anemia, unspecified I10 Essential (primary) hyperten margie Office Visit 01/31/2021 1:40p [facility] Sanchez DO Z01.810 Encounter for preprocedural cardiovascular examination M25.511 Pain in right shoulder I48.91 Unspecified atrial fibrillat ion Z79.01 terminal operator (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.01 MCC (current) use of a nticoagulants E11.9 Type [...] with medication regimen Office Visit 09/08/2020 10:00a [facility] PKaren Goldman M.D. 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 Milton [place], DO 03/03/2021 D64.9 Anemia, unspecified Shaileshopher [place], DO 03/03/2021 E83.42 Hypomagnesemia Christopher Denisha ogg, DO 02/28/2021 G93.40 Encephalopathy, unspecified Chri stopher [place], DO 02/28/2021 G47.01 Insomnia due to medical conditio n Christopher [place], DO 02/28/2021 K70.30 Alcoholic cirrhosis of liver wit hout ascites Shaileshopher [place], DO 02/28/2021 R60.9 Edema, unspecified Christopher K ellogg, DO 02/28/2021 I48.91 Unspecified atrial fibrillation Douglaser [place], DO 02/28/2021 Z79.01 MCC (current) use of antic oagulants Shaileshopher Lisseth, DO 02/28/2021 D64.9 Anemia, unspecified Christopher Lisseth, DO 02/28/2021 I10 Essential (primary) hypertension Milton Sanchez, DO 01/31/2021 Z01.810 Encounter for preprocedural card iovascular examination Milton Sanchez, DO 01/31/2021 M25.511 Pain in right shoulder Douglas Sanchez, DO 01/31/2021 I48.91 Unspecified atrial fibrillation Shaileshluna Sanchez, DO 01/31/2021 Z79.01 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 11/10/2020 I48.91 Unspecified atrial fibrillation Nader Goldman M.D. 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 09/08/2020 Z79.01 terminal operator (current) use of antic oagulants Nader Goldman [...] 11:00 am - Milton Sanchez DO at [facility] * 03/31/2021 2:30 pm - Nader Goldman M.D. at [facility] 11/10/2020 - Nader Goldman M.D.* E78.5 Hyperlipidemia, unspecified * I48.91 Unspecified atrial fibrillation * Z79.01 terminal operator (current) use of anticoagulants * E11.9 Type [...] is anticoagulated. We will continue to monitor.3. terminal operator (current) use of anticoagulants: Doing well with [...]
--- OUTSIDE RECORDS SUMMARY | 2021-03-14 14:08 | CCD | Continuity of Care Document ---
Author Author Dipak SANCHEZ O Organization Unknown Address [address] [address] Phone [phone] Care Team Providers Care Radioisotope Technologist Name Role Phone Nader Goldman MD AUTM [phone] [facility] Radiology AUTM [phone] Problems Active Problems Provider Date Hemorrhoids Onset: [...] Sanchez MD 01/17/2018 Lancet Device With Ejector [facility] [place] use as directed 1unzana Goldman M.D. 06/20/2015 Lancets 30G 30G Misc test twice a day and as needed e11.9 200unzana Goldman M.D. 06/20/2015 Glucometer [facility] use for evaluation of blood glucose as [...] CPT Code Status Date Vaccine Lot # [id number] Given 01/08/2020 Pneumovax 23 [id number] Given 03/26/2012 Influenza Virus Vaccine 32133 Refused 05/13/2018 Influenza Virus Vaccine, Quadrivalent ([id number]), Derived From Cell 24159 Refused 03/26/2012 Adacel- Tetanus Diphtheria P ertussis [...] H/L Range Note Basic Metabolic Panel 03/08/2021 [facility] Community Coordinator: Dr Martín Gregorio [place] [id number] [phone] Glucose 108 mg/dL High 74 - 99 [...] mL/min >60 2 Laboratory test finding 03/08/2021 [facility] Community Coordinator: CARMELA Guzmán [id number] [phone] Magnesium 1.9 mg/dL 1.8 - 2.4 Laboratory test finding 03/03/2021 [facility] Community Coordinator: Dr Martín [place] [address] [phone] Magnesium 1.5 mg/dL Low 1.8 - 2.4 Basic Metabolic Panel 03/03/2021 [facility] Community Coordinator: Dr Martín [place] [address] [phone] Glucose 175 mg/dL High 74 - 99 [...] mL/min >60 4 Laboratory test finding 02/28/2021 [facility] [address] [id number] [phone] Hepatitis B Surface Antibody NEGATIVE Normal Pos itive Ua Dipstick Only 02/28/2021 [facility] Community Coordinator: Dr Martín Sanchez [place] [id number] [phone] Urine Color YELLOW Yellow Urine Appearance CLEAR Clear Urine PH 6.0 units 5.0 - 9.0 Urine Specific [place] 1.020 1.005 - 1.030 Urine Leukocytes NEGATIVE Negative Urine Blood NEGATIVE Negative Urine Protein NEGATIVE Negative -Trace Urine Glucose NEGATIVE mg/dL Negative Urine Nitrite NEGATIVE Negative Urine Ketone NEGATIVE mg/dL Negative Urine Bilirubin NEGATIVE Negative Urine Urobilinogen 0.2 mg/dL 0.2 - 1.0 Comprehensive Chem Profile 02/28/2021 [facility]ethi Community Coordinator: Dr Martín [place] [address] [phone] Glucose 111 mg/dL High 74 - 99 [...] mL/min >60 6 Complete Blood Count 02/28/2021 [facility] Community Coordinator: Dr Martín [place] [address] [phone] WBC 9.2 x10*3/UL 4.1 - 10.9 RBC [...] 2.0 - 7.8 Laboratory test finding 02/28/2021 [facility] [address] [place] [address] [phone] Hepatitis B Surface Antibody <pending> Hepatitis Profile 02/28/2021 [facility] nter [address] [place] [address] [phone] Hepatitis C Virus Kelly Index 0.1 INDEX Normal <0.8 7 Hepatitis B Surface Antigen NEGATIVE Normal Negative Hepatitis B Core Antibody Igm NEGATIVE Normal Negative Hepatitis A Antibody Igm NEGATIVE Normal Negative Laboratory test finding 02/28/[address] [address] [phone] Ferritin 33 NG/ML Normal 26-388 Total Iron Binding Capacit 02/28/[address] [address] [phone] Iron (Fe) 52 g/dL Low 65-175 Total Iron Binding Capacity 456 g/dL High 250-450 Percent Saturation 11.4 % Low 19.7-50.0 Laboratory test finding 02/28/[address] [address] [phone] Ammonia 48 uMOL/L High <32 Prothrombin Time/Inr 02/28/2021 [facility] enter [address] [place] [address] [phone] Prothrombin Time 15.4 seconds High 12.7-14.5 Inr 1.18 Normal 8 CBC With Differential 02/23/[address] [address] [phone] White Blood Count 10.8 10 High 4.0-10.0 [...] 36.0-66.0 Lymph % 19.9 % Low 24.0-44.0 [place] % 9.5 % High 2.0-8.0 Eos % 2.3 % Normal 0.0-3.0 Baso % 1.1 % High 0.0-1.0 Immature Granulocyte % 0.4 % Normal 0-3.0 Nucleated Red Blood Cell % 0.0 % Normal 0-0 Neutrophils # 7.2 10 Normal 1.5-8.5 Lymph # 2.1 10 Normal 1.5-5.0 [place] # 1.0 10 High 0.0-0.8 Eos # 0.3 10 Normal 0.0-0.5 Baso # 0.1 10 Normal 0.0-0.2 Istat Chem8+ Panel 02/23/2021 [facility] nter [address] [place] [address] [phone] iSTAT HCT 37.0 % Low 38.0-51.0 iSTAT Glucose 145 mg/dL High 70-105 iSTAT Sodium 138 mEq/L Normal 136-145 iSTAT Potassium 4.3 mEq/L Normal 3.5-5.1 iSTAT CA++ 5.2 mg/dL Normal 4.5-5.3 iSTAT Chloride 100 mEq/L Normal 98-109 iSTAT Co2 27.0 MM/L Normal 23.0-27.0 iSTAT BUN 20 mg/dL Normal 8-26 iSTAT Creatinine 0.8 mg/dL Normal 0.6-1.3 Laboratory test finding 02/23/[address] [address] [phone] iSTAT Troponin 0.00 NG/ML Normal 0.00-0.08 Laboratory test finding 02/23/[address] [address] [phone] NT-Pro BNP 303 pg/mL High <125 Lipase 249 U/L Normal 73-393 Thyroid Stimulating Hormone 1.080 uIU/ML Normal 0.358-3.740 Free T4 1.07 ng/dL Normal 0.76-1.46 Liver Profile 02/23/2021 [facility] nter [address] [place] [address] [phone] Ast/Sgot 24 U/L Normal 7-37 Alt/SGPT 32 U/L Normal 12-78 Alkaline Phosphatase 67 U/L Normal 45-117 Bilirubin,Total 0.9 mg/dL Normal 0.2-1.0 Bilirubin,Direct 0.3 mg/dL High 0.0-0.2 Total Protein 7.2 GM/DL Normal 6.4-8.2 Albumin 3.1 GM/DL Low 3.2-5.2 Albumin/Globulin Ratio 0.8 Normal Cardiac Marker Panel 02/23/2021 [facility] enter [address] [place] [address] [phone] CPK Creatine Phosphokinase 102 U/L Normal 39-30 8 CK-MB Value Mass 3.3 NG/ML Normal <3.6 MB/CK Relative Index 3.24 Normal < Or =4 9 Troponin I < 0.02 NG/ML Normal < 0.10 10 Influenza A/B RSV Covid Amp 02/23/2021 [facility] [address] [place] [address] [phone] Influenza A Amplification NEGATIVE Normal Negati ve 11 Influenza B Amplification NEGATIVE Normal Negative 12 RSV Amplification NEGATIVE Normal Negative 13 Sars Covid-19 Amplification NEGATIVE Normal Negative 14 Laboratory test finding 02/23/2021 [facility] [address] [place] [address] [phone] iSTAT Troponin 0.00 NG/ML Normal 0.00-0.08 Laboratory test finding 02/23/2021 [facility] [address] [place] [address] [phone] iSTAT Troponin 0.01 NG/ML Normal 0.00-0.08 A1c 01/31/2021 [facility] Community Coordinator: Dr Martín Sanchez [place] [id number] [phone] Hba1c 6.9 % High <5.7 15 Est Avg Glucose 151 mg/dL High 60 - 110 Laboratory test finding 01/31/2021 [facility] Community Coordinator: Dr Martín Sanchez [place] [id number] [phone] Magnesium 1.6 mg/dL Low 1.8 - 2.4 Comprehensive Chem Profile 01/31/2021 [facility] Community Coordinator: Dr Martín [place] [address] [phone] Glucose 75 mg/dL 74 - 99 16 [...] mL/min >60 17 Complete Blood Count 11/10/2020 [facility] Community Coordinator: Dr Martín [place] [address] [phone] WBC 9.0 x10*3/UL 4.1 - 10.9 RBC [...] 6.6 x10*3/UL 2.0 - 7.8 A1c 11/10/2020 [facility] Community Coordinator: Dr Martín Sanchez [place], [place] [id number] [phone] Hba1c 6.7 % High <5.7 18 Est Avg Glucose 146 mg/dL High 60 - 110 Comprehensive Chem Profile 11/10/2020 [facility] Community Coordinator: Dr Martín Sanchez [place], [place] [id number] [phone] Glucose 104 mg/dL High 74 - 99 [...] mL/min >60 20 Complete Blood Count 09/08/2020 [facility] gordon Community Coordinator: Dr Martín Sanchez [place], [place] [id number] [phone] WBC 10.3 x10*3/UL 4.1 - 10.9 RBC [...] 7.4 x10*3/UL 2.0 - 7.8 A1c 09/08/2020 [facility] Community Coordinator: Dr Martín [place] [address] [phone] Hba1c 6.7 % High <5.7 21 Est Avg Glucose 146 mg/dL High 60 - 110 Comprehensive Chem Profile 09/08/2020 [facility] Community Coordinator: Dr Martín [place] [address] [phone] Glucose 113 mg/dL High 74 - 99 [...] LITTLE GFR LEFT ESRD GFR <15 ON CURRICULUM DEVELOPER 3 100-125 mg/dL PRE-DIABET ES/FASTING >126 mg/dL DIABETES/FASTING 4 CHRONIC KIDNEY DISEASE STAGI NG PER NKF STAGE I & II GFR >= 60 NORMAL TO MILDLY DECREASED STAGE III GFR 30-59 MODERATELY DECREASED STAGE IV GFR 15-29 SEVERELY DECREASED STAGE V GFR <15 VERY LITTLE GFR LEFT ESRD GFR <15 ON CURRICULUM DEVELOPER 5 100-125 mg/dL PRE-DIABET ES/FASTING >126 mg/dL DIABETES/FASTING 6 CHRONIC KIDNEY DISEASE STAGI NG PER NKF STAGE I & II GFR >= 60 NORMAL TO MILDLY DECREASED STAGE III GFR 30-59 MODERATELY DECREASED STAGE IV GFR 15-29 SEVERELY DECREASED STAGE V GFR <15 VERY LITTLE GFR LEFT ESRD GFR <15 ON CURRICULUM DEVELOPER 7 Negative Not infected with HCV, unless [...] Troponin I Reference Interva l for Siemens CEL-SCI LOCI: 99th Percentile= 0.00-0.045 ng/ml Risk Stratification: [...] pathogens. DISCLAIMER: Testing was performed using the [facility] SARS-CoV-2 test. This test was developed and its performance characteristics determined by [facility]. This test has not been FDA cleared [...] LITTLE GFR LEFT ESRD GFR <15 ON CURRICULUM DEVELOPER 18 Lab Result Notes: Pre-Diabetes 5.7 - [...] LITTLE GFR LEFT ESRD GFR <15 ON CURRICULUM DEVELOPER 21 Lab Result Notes: Pre-Diabetes 5.7 - [...] LITTLE GFR LEFT ESRD GFR <15 ON CURRICULUM DEVELOPER Procedures Date Code Description Status 03/03/2021 33103 Office/Outpatient Established Mo d MDM 30-39 Min Completed 02/28/2021 22843 Office/Outpatient Established Mo d MDM 30-39 Min Completed 01/31/2021 48417 Office/Outpatient Established Mo d MDM 30-39 Min Completed 01/31/2021 07925 EKG/Interpretation & Report Comp leted 11/10/2020 62245 Office/Outpatient Established Mo d MDM 30-39 Min Completed 11/09/2020 [id number] Colonoscopy Completed 09/08/2020 03903 Trans Care SRV W/I 14D Of DC, Co mm W/I 2 Dys Med Rec Completed 01/21/2019 [id number] Colonoscopy Completed 12/10/2018 [id number] Colonoscopy Completed 11/13/2018 [id number] Diabetic Retinal Eye Exam Comple nory 06/22/2015 [id number] Diabetic Retinal Eye Exam Comple [facility] Medical Devices Description No Information Available Encounters Type Date Location Provider Dx Diagnosis Office Visit 03/03/2021 11:40a [facility] Crystal Sanchez DO G93.40 Encephalopathy, unspecified G47.01 Insomnia due to medical cond ition K70.30 Alcoholic cirrhosis of liver without ascites R60.9 Edema, unspecified I48.91 Unspecified atrial fibrillat ion Z79.01 snf (current) use of a nticoagulants D64.9 Anemia, unspecified E83.42 Hypomagnesemia Office Visit 02/28/2021 10:40a [facility] DO G93.40 Encephalopathy, unspecified G47.01 Insomnia due to medical cond ition K70.30 Alcoholic cirrhosis of liver without ascites R60.9 Edema, unspecified I48.91 Unspecified atrial fibrillat ion Z79.01 snf (current) use of a nticoagulants D64.9 Anemia, unspecified I10 Essential (primary) hyperten margie Office Visit 01/31/2021 1:40p [facility] Sanchez DO Z01.810 Encounter for preprocedural cardiovascular examination M25.511 Pain in right shoulder I48.91 Unspecified atrial fibrillat ion Z79.01 buttermaker (current) use of a nticoagulants Z79.84 buttermaker (current) use of o ral hypoglycemic drugs E11.9 Type 2 diabetes mellitus wit hout complications I10 Essential (primary) hyperten margie G47.33 Obstructive sleep apnea (nancy lt) (pediatric) Office Visit 11/10/2020 11:30a [facility] PKaren Goldman M.D. 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.01 snf (current) use of a nticoagulants E11.9 Type [...] with medication regimen Office Visit 09/08/2020 10:00a [facility] PKaren Goldman M.D. I48.91 Unspecified atrial fibrillation Z79.01 snf (current) use of a nticoagulants Z91.14 Patient's [...] er Lisseth, DO 03/08/2021 E83.42 Hypomagnesemia Christopher Perry Hall ogg, DO 03/03/2021 G93.40 Encephalopathy, unspecified Chri stopher Lisseth, DO 03/03/2021 G47.01 Insomnia due to medical conditio n Christopher [place], DO 03/03/2021 K70.30 Alcoholic cirrhosis of liver wit hout ascites Shaileshopher [place], DO 03/03/2021 R60.9 Edema, unspecified Christopher K ellogg, DO 03/03/2021 I48.91 Unspecified atrial fibrillation Douglaser [place], DO 03/03/2021 Z79.01 buttermaker (current) use of antic oagulants Milton [place], DO 03/03/2021 D64.9 Anemia, unspecified Shaileshopher [place], DO 03/03/2021 E83.42 Hypomagnesemia Christopher Denisha ogg, DO 02/28/2021 G93.40 Encephalopathy, unspecified Chri stopher [place], DO 02/28/2021 G47.01 Insomnia due to medical conditio n Christopher [place], DO 02/28/2021 K70.30 Alcoholic cirrhosis of liver wit hout ascites Shaileshopher [place], DO 02/28/2021 R60.9 Edema, unspecified Christopher K ellogg, DO 02/28/2021 I48.91 Unspecified atrial fibrillation Douglaser [place], DO 02/28/2021 Z79.01 snf (current) use of antic oagulants Shaileshopher Lisseth, DO 02/28/2021 D64.9 Anemia, unspecified Christopher Lisseth, DO 02/28/2021 I10 Essential (primary) hypertension Milton Sanchez, DO 01/31/2021 Z01.810 Encounter for preprocedural card iovascular examination Milton Sanchez, DO 01/31/2021 M25.511 Pain in right shoulder Douglas Sanchez, DO 01/31/2021 I48.91 Unspecified atrial fibrillation Shaileshluna Sanchez, DO 01/31/2021 Z79.01 buttermaker (current) use of antic oagulants Shaileshluna Dooleylogg, DO 01/31/2021 Z79.84 buttermaker (current) use of oral hypoglycemic drugs Shaileshluna Sanchez, DO 01/31/2021 E11.9 Type 2 diabetes mellitus without complications Shaileshluna Lancasterg, DO 01/31/2021 I10 Essential (primary) hypertension Shaileshluna Lisseth, DO 01/31/2021 G47.33 Obstructive sleep apnea (adult) (pediatric) Douglasmarina Lisseth, DO 11/10/2020 E78.5 Hyperlipidemia, unspecified Aamir Goldman M.D. 11/10/2020 I48.91 Unspecified atrial fibrillation Nader Goldman M.D. 11/10/2020 Z79.01 buttermaker (current) use of antic oagulants Nader Goldman [...] atrial fibrillation Nader Goldman M.D. 09/08/2020 Z79.01 buttermaker (current) use of antic oagulants Nader Goldman [...] 11:00 am - Milton Sanchez DO at [facility] * 03/31/2021 2:30 pm - Nader Goldman M.D. at [facility] 11/10/2020 - Nader Goldman M.D.* E78.5 Hyperlipidemia, unspecified * I48.91 Unspecified atrial fibrillation * Z79.01 buttermaker (current) use of anticoagulants * E11.9 Type [...] is anticoagulated. We will continue to monitor.3. buttermaker (current) use of anticoagulants: Doing well with [...]
--- OUTSIDE RECORDS SUMMARY | 2021-03-14 14:08 | CCD | Continuity of Care Document ---
Author Author Dipak SANCHEZ Organization Unknown Address [address] [address] Phone [phone] Care Team Providers Care Ticketing Agent Name Role Phone Nader Goldman MD AUTM [phone] [facility] Radiology AUTM [phone] Problems Active Problems Provider Date Hemorrhoids Onset: [...] SIG Qnty Indications Ordering Provide r Date Lactulose 10GM/15ML Solution Take 30 ml by mouth 3 to 4 times daily and titrate to produce 2 to 3 soft stools/day 600ml Milton Sanchez DO 03/01/2021 Furosemide 40mg Tablets 1 by mouth every day 30tabs Milton Sanchez DO 02/29/20 21 Metoprolol Tartrate 25mg Tablets 3 tabs by mouth twice a day 180tabs Milton Sanchez DO 2020 Atorvastatin Calcium 20mg Tablets 1 by [...] Sanchez MD 01/17/2018 Lancet Device With Ejector Misc use as directed 1unzana Goldman M.D. 06/20/2015 Lancets 30G 30G Misc test twice a day and as needed e11.9 200units Nader Goldman M.D. 06/20/2015 Glucometer Misc use for evaluation of blood glucose as directed. dx e11.9 uncontrolled 1units E11.65 Nader Goldman M.D. 06/17/2015 Test Strips [...] one tablet by mouth twice a day 180tajanusz Goldman M.D. 0 Medications Administered in Office Medication SIG Qnty Indications Ordering Provider Date Immunization Adminstration,1 Vaccine/Tox oid Injection Nader Goldman M.D. 020 Immunizations CPT Code Status Date Vaccine Lot # 16919 Given 01/08/2020 Pneumovax 23 [id number] Given 03/26/2012 Influenza Virus Vaccine 22056 Refused 05/13/2018 Influenza Virus Vaccine, Quadrivalent ([id number]), Derived From Cell [id number] Refused 03/26/2012 Adacel- Tetanus Diphtheria P ertussis Vital Signs Date Vital Result Comment 03/03/2021 11:50am BP Systolic 102 mmHg BP Diastolic 82 mmHg Heart Rate 58 /min Height 70 inches 5'10" Weight 262.00 lb O2 % BldC Oximetry 99 % RM Air BMI (Body Mass Index) 37.6 kg/m2 02/28/2021 10:51am BP Systolic 102 mmHg BP Diastolic 80 mmHg Heart Rate 81 /min Height 70 inches 5'10" Weight 266.00 lb O2 % BldC Oximetry 99 % RM Air BMI (Body Mass Index) 38.2 kg/m2 Results Test Acquired Date Facility Test Result H/L Range Note Basic Metabolic Panel 03/03/2021 [facility] Postal Delivery Officer: Dr Martín Sanchez [place], [place] [id number] [phone] Glucose 175 mg/dL High 74 - 99 1 BUN 21 mg/dL High 7 - 18 Creatinine 0.7 mg/dL 0.6 - 1.3 Sodium 140 mEq/L 136 - 145 Potassium 4.4 mEq/L 3.5 - 5.1 Chloride 104 mEq/L 98 - 107 Carbon Dioxide 31 mEq/L 21 - 32 Calcium 9.2 mg/dL 8.5 - 10.1 GFR >= 60 mL/min >60 GFR >= 60 mL/min >60 2 Laboratory test finding 03/03/2021 [facility] Postal Delivery Officer: Dr Martín [place] [address] [phone] Magnesium 1.5 mg/dL Low 1.8 - 2.4 Laboratory test finding 02/28/2021 [facility] [address] [place] [address] [phone] Ammonia 48 uMOL/L High <32 Total Iron Binding Capacit 02/28/2021 [facility] [address] [place] [address] [phone] Iron (Fe) 52 g/dL Low 65-175 Total Iron Binding Capacity 456 g/dL High 250-450 Percent Saturation 11.4 % Low 19.7-50.0 Laboratory test finding 02/28/2021 [facility] [address] [place] [address] [phone] Ferritin 33 NG/ML Normal 26-388 Hepatitis Profile 02/28/2021 [facility] [address] [place] [address] [phone] Hepatitis C Virus Kelly Index 0.1 INDEX Normal <0.8 3 Hepatitis B Surface Antigen NEGATIVE Normal Negative Hepatitis B Core Antibody Igm NEGATIVE Normal Negative Hepatitis A Antibody Igm NEGATIVE Normal Negative Laboratory test finding 02/28/[address] [address] [phone] Hepatitis B Surface Antibody NEGATIVE Normal Pos itive Laboratory test finding 02/28/[address] [address] [phone] Hepatitis B Surface Antibody <pending> Complete Blood Count 02/28/2021 [facility] Postal Delivery Officer: Dr Martín [place] [address] [phone] WBC 9.2 x10*3/UL 4.1 - 10.9 RBC [...] Neut # 6.9 x10*3/UL 2.0 - 7.8 Comprehensive Chem Profile 02/28/2021 [facility] Delivery Officer: Dr Martín Sanchez [place] [id number] [phone] Glucose 111 mg/dL High 74 - 99 4 BUN 18 mg/dL 7 - 18 Creatinine [...] mL/min >60 GFR >= 60 mL/min >60 5 Ua Dipstick Only 02/28/2021 [facility] Postal Delivery Officer: Dr Martín [place] [address] [phone] Urine Color YELLOW Yellow Urine Appearance CLEAR Clear Urine PH 6.0 units 5.0 - 9.0 Urine Specific [place] 1.020 1.005 - 1.030 Urine Leukocytes NEGATIVE Negative Urine Blood NEGATIVE Negative Urine Protein NEGATIVE Negative -Trace Urine Glucose NEGATIVE mg/dL Negative Urine Nitrite NEGATIVE Negative Urine Ketone NEGATIVE mg/dL Negative Urine Bilirubin NEGATIVE Negative Urine Urobilinogen 0.2 mg/dL 0.2 - 1.0 Prothrombin Time/Inr 02/28/2021 [facility] [address] [place] [id number] [phone] Prothrombin Time 15.4 seconds High 12.7-14.5 Inr 1.18 Normal 6 Istat Chem8+ Panel 02/23/2021 [facility] [address] [place] [address] [phone] iSTAT HCT 37.0 % Low 38.0-51.0 iSTAT Glucose 145 mg/dL High 70-105 iSTAT Sodium 138 mEq/L Normal 136-145 iSTAT Potassium 4.3 mEq/L Normal 3.5-5.1 iSTAT CA++ 5.2 mg/dL Normal 4.5-5.3 iSTAT Chloride 100 mEq/L Normal 98-109 iSTAT Co2 27.0 MM/L Normal 23.0-27.0 iSTAT BUN 20 mg/dL Normal 8-26 iSTAT Creatinine 0.8 mg/dL Normal 0.6-1.3 Laboratory test finding 02/23/[address] [address] [phone] iSTAT Troponin 0.00 NG/ML Normal 0.00-0.08 Laboratory test finding 02/23/[address] [address] [phone] NT-Pro BNP 303 pg/mL High <125 Lipase 249 U/L Normal 73-393 Thyroid Stimulating Hormone 1.080 uIU/ML Normal 0.358-3.740 Free T4 1.07 ng/dL Normal 0.76-1.46 Cardiac Marker Panel 02/23/2021 [facility] [address] [place] [address] [phone] CPK Creatine Phosphokinase 102 U/L Normal 39-30 8 CK-MB Value Mass 3.3 NG/ML Normal <3.6 MB/CK Relative Index 3.24 Normal < Or =4 7 Troponin I < 0.02 NG/ML Normal < 0.10 8 Liver Profile 02/23/2021 [facility] [address] [place] [address] [phone] Ast/Sgot 24 U/L Normal 7-37 Alt/SGPT 32 U/L Normal 12-78 Alkaline Phosphatase 67 U/L Normal 45-117 Bilirubin,Total 0.9 mg/dL Normal 0.2-1.0 Bilirubin,Direct 0.3 mg/dL High 0.0-0.2 Total Protein 7.2 GM/DL Normal 6.4-8.2 Albumin 3.1 GM/DL Low 3.2-5.2 Albumin/Globulin Ratio 0.8 Normal CBC With Differential 02/23/[address] [address] [phone] White Blood Count 10.8 10 High 4.0-10.0 [...] 36.0-66.0 Lymph % 19.9 % Low 24.0-44.0 [place] % 9.5 % High 2.0-8.0 Eos % 2.3 % Normal 0.0-3.0 Baso % 1.1 % High 0.0-1.0 Immature Granulocyte % 0.4 % Normal 0-3.0 Nucleated Red Blood Cell % 0.0 % Normal 0-0 Neutrophils # 7.2 10 Normal 1.5-8.5 Lymph # 2.1 10 Normal 1.5-5.0 [place] # 1.0 10 High 0.0-0.8 Eos # 0.3 10 Normal 0.0-0.5 Baso # 0.1 10 Normal 0.0-0.2 Influenza A/B RSV Covid Amp 02/23/[address] [address] [phone] Influenza A Amplification NEGATIVE Normal Negati ve 9 Influenza B Amplification NEGATIVE Normal Negative 10 RSV Amplification NEGATIVE Normal Negative 11 Sars Covid-19 Amplification NEGATIVE Normal Negative 12 Laboratory test finding 02/23/[address] [place] [address] [phone] iSTAT Troponin 0.00 NG/ML Normal 0.00-0.08 Laboratory test finding 02/23/2021 [facility] [address] [place] [address] [phone] iSTAT Troponin 0.01 NG/ML Normal 0.00-0.08 A1c 01/31/2021 [facility] Postal Delivery Officer: Dr Martín Sanchez [place] [id number] [phone] Hba1c 6.9 % High <5.7 13 Est Avg Glucose 151 mg/dL High 60 - 110 Laboratory test finding 01/31/2021 [facility] Postal Delivery Officer: Dr Martín Sanchez [place] [id number] [phone] Magnesium 1.6 mg/dL Low 1.8 - 2.4 Comprehensive Chem Profile 01/31/2021 [facility] Postal Delivery Officer: Dr Martín [place] [address] [phone] Glucose 75 mg/dL 74 - 99 14 BUN 14 mg/dL 7 - 18 Creatinine [...] mL/min >60 GFR >= 60 mL/min >60 15 Complete Blood Count 11/10/2020 [facility] Postal Delivery Officer: Dr Martín [place] [address] [phone] WBC 9.0 x10*3/UL 4.1 - 10.9 RBC [...] 6.6 x10*3/UL 2.0 - 7.8 A1c 11/10/2020 [facility] , Postal Delivery Officer: Dr Martín Sanchez [place], [place] [address] [phone] Hba1c 6.7 % High <5.7 16 Est Avg Glucose 146 mg/dL High 60 - 110 Comprehensive Chem Profile 11/10/2020 [facility] Postal Delivery Officer: Dr Martín Sanchez [place], [place] [address] [phone] Glucose 104 mg/dL High 74 - 99 17 BUN 14 mg/dL 7 - 18 Creatinine [...] mL/min >60 GFR >= 60 mL/min >60 18 Complete Blood Count 09/08/2020 [facility] Postal Delivery Officer: Dr Martín [place] [address] [phone] WBC 10.3 x10*3/UL 4.1 - 10.9 RBC [...] 7.4 x10*3/UL 2.0 - 7.8 A1c 09/08/2020 [facility] Postal Delivery Officer: Dr Martín [place] [address] [phone] Hba1c 6.7 % High <5.7 19 Est Avg Glucose 146 mg/dL High 60 - 110 Comprehensive Chem Profile 09/08/2020 [facility] Postal Delivery Officer: Dr Martín [place] [address] [phone] Glucose 113 mg/dL High 74 - 99 20 BUN 14 mg/dL 7 - 18 Creatinine [...] mL/min >60 GFR >= 60 mL/min >60 21 1 100-125 mg/dL PRE-DIABET ES/FASTING >126 mg/dL DIABETES/FASTING 2 CHRONIC KIDNEY DISEASE STAGI NG PER NKF STAGE I & II GFR >= 60 NORMAL TO MILDLY DECREASED STAGE III GFR 30-59 MODERATELY DECREASED STAGE IV GFR 15-29 SEVERELY DECREASED STAGE V GFR <15 VERY LITTLE GFR LEFT ESRD GFR <15 ON TREE WRAPPER 3 Negative Not infected with HCV, unless recent infection is suspected or other evidence exists to indicate HCV infection. 4 100-125 mg/dL PRE-DIABET ES/FASTING >126 mg/dL DIABETES/FASTING 5 CHRONIC KIDNEY DISEASE STAGI NG PER NKF STAGE I & II GFR >= 60 NORMAL TO MILDLY DECREASED STAGE III GFR 30-59 MODERATELY DECREASED STAGE IV GFR 15-29 SEVERELY DECREASED STAGE V GFR <15 VERY LITTLE GFR LEFT ESRD GFR <15 ON TREE WRAPPER 6 THERAPUTIC HUMAN INR VALUES INDICATIONS NORMAL RANGES PROPHYLAXIS/TREATMENT OF: VENOUS THROMBOSIS 2.0-3.0 PULMONARY EMBOLISM 2.0-3.0 PREVENTION OF SYSTEMIC EMBOLISM FROM: TISSUE HEART VALVES 2.0-3.0 ACUTE MYOCARDIAL INFARCTION 2.0-3.0 VALVULAR HEART DISEASE 2.0-3.0 ATRIAL FIBRILLATION 2.0-3.0 MECHANICAL VALVES(HIGH RISK) 2.5-3.5 RECURRENT MYOCARDIAL INFARCTION 2.5-3.5 7 DIAGNOSIS CRITERIA MMB ng/ml Relative Index (RI) NON-AMI < or = 5 N/A ENRIQUEZ ZONE > 5 < or = 4 AMI > 5 > 4 8 Troponin I Reference Interva l for [employer] LOCI: 99th Percentile= 0.00-0.045 ng/ml Risk Stratification: <= 0.10 ng/ml Decreased Risk for Adverse Clinical Events. 0.10-1.50 ng/ml Increased Risk for Adv erse Clinical Events. Evaluation of additional criterion and/or repeat testing in 2-6 hours is suggested to rule out myocardial damage. >= 1.50 ng/ml Indicative of Myocardial Injury. 9 Negative results do not prec lude influenza or RSV virus infection and should not be used as the sole basis for treatment or other patient management decisions. 10 Negative results do not prec lude influenza or RSV virus infection and should not be used as the sole basis for treatment or other patient management decisions. 11 Negative results do not prec lude influenza or RSV virus infection and should not be used as the sole basis for treatment or other patient management decisions. 12 A false negative result may occur if [...] pathogens. DISCLAIMER: Testing was performed using the [employer] SARS-CoV-2 test. This test was developed and its performance characteristics determined by [employer]. This test has not been FDA cleared [...] the authorization is terminated or revoked sooner. 13 Lab Result Notes: Pre-Diabetes 5.7 - 6.4 % Diabetes = or > 6.5% 14 100-125 mg/dL PRE-DIABET ES/FASTING >126 mg/dL DIABETES/FASTING 15 CHRONIC KIDNEY DISEASE STAGI NG PER NKF STAGE I & II GFR >= 60 NORMAL TO MILDLY DECREASED STAGE III GFR 30-59 MODERATELY DECREASED STAGE IV GFR 15-29 SEVERELY DECREASED STAGE V GFR <15 VERY LITTLE GFR LEFT ESRD GFR <15 ON TREE WRAPPER 16 Lab Result Notes: Pre-Diabetes 5.7 - 6.4 % Diabetes = or > 6.5% 17 100-125 mg/dL PRE-DIABET ES/FASTING >126 mg/dL DIABETES/FASTING 18 CHRONIC KIDNEY DISEASE STAGI NG PER NKF STAGE I & II GFR >= 60 NORMAL TO MILDLY DECREASED STAGE III GFR 30-59 MODERATELY DECREASED STAGE IV GFR 15-29 SEVERELY DECREASED STAGE V GFR <15 VERY LITTLE GFR LEFT ESRD GFR <15 ON TREE WRAPPER 19 Lab Result Notes: Pre-Diabetes 5.7 - 6.4 % Diabetes = or > 6.5% 20 100-125 mg/dL PRE-DIABET ES/FASTING >126 mg/dL DIABETES/FASTING 21 CHRONIC KIDNEY DISEASE STAGI NG PER NKF STAGE I & II GFR >= 60 NORMAL TO MILDLY DECREASED STAGE III GFR 30-59 MODERATELY DECREASED STAGE IV GFR 15-29 SEVERELY DECREASED STAGE V GFR <15 VERY LITTLE GFR LEFT ESRD GFR <15 ON TREE WRAPPER Procedures Date Code Description Status 02/28/2021 75455 Office/Outpatient Established Mo d MDM 30-39 Min Completed 01/31/2021 13992 Office/Outpatient Established Mo d MDM 30-39 Min Completed 01/31/2021 39958 EKG/Interpretation & Report Comp leted 11/10/2020 45008 Office/Outpatient Established Mo d MDM 30-39 Min Completed 11/09/2020 [id number] Colonoscopy Completed 09/08/2020 14976 Trans Care SRV W/I 14D Of DC, Co mm W/I 2 Dys Med Rec Completed 01/21/2019 [id number] Colonoscopy Completed 12/10/2018 [id number] Colonoscopy Completed 11/13/2018 [id number] Diabetic Retinal Eye Exam [facility] 06/22/2015 [id number] Diabetic Retinal Eye Exam Comple [facility] Medical Devices Description No Information Available Encounters Type Date Location Provider Dx Diagnosis Office Visit 02/28/2021 10:40a [facility] Crystal Sanchez DO G93.40 Encephalopathy, unspecified G47.01 Insomnia due to medical cond ition K70.30 Alcoholic cirrhosis of liver without ascites R60.9 Edema, unspecified I48.91 Unspecified atrial fibrillat ion Z79.01 roasterman (current) use of a nticoagulants D64.9 Anemia, unspecified I10 Essential (primary) hyperten margie Office Visit 01/31/2021 1:40p [facility] DO Z01.810 Encounter for preprocedural cardiovascular examination M25.511 Pain in right shoulder I48.91 Unspecified atrial fibrillat ion Z79.01 [facility] (current) use of a nticoagulants Z79.84 [facility]iary (current) use of o ral hypoglycemic drugs E11.9 Type 2 diabetes mellitus wit hout complications I10 Essential (primary) hyperten margie G47.33 Obstructive sleep apnea (nancy lt) (pediatric) Office Visit 11/10/2020 11:30a [facility] 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.01 [facility] (current) use of a nticoagulants E11.9 Type [...] with medication regimen Office Visit 09/08/2020 10:00a [facility] M[facility] 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 Assessments Date Code Description Provider 03/03/2021 G93.40 Encephalopathy, unspecified Chri tona Sanchez, DO 03/03/2021 G47.01 Insomnia due to medical conditio n Milton Sanchez, DO 03/03/2021 K70.30 Alcoholic cirrhosis of liver wit hout ascites Milton Sanchez, DO 03/03/2021 R60.9 Edema, unspecified Christopher K ellogg, DO 03/03/2021 I48.91 Unspecified atrial fibrillation Milton Dooleylogg, DO 03/03/2021 Z79.01 roasterman (current) use of antic oagulants Douglaser Bullock, DO 03/03/2021 D64.9 Anemia, unspecified Douglaser Lisseth, DO 03/03/2021 E83.42 Hypomagnesemia Milton Dooleyl ogg, DO 02/28/2021 G93.40 Encephalopathy, unspecified Chri stopher Dooleylogg, DO 02/28/2021 G47.01 Insomnia due to medical conditio n Milton Dooleylogg, DO 02/28/2021 K70.30 Alcoholic cirrhosis of liver wit hout ascites Milton Lancasterg, DO 02/28/2021 R60.9 Edema, unspecified Douglaser K ellogg, DO 02/28/2021 I48.91 Unspecified atrial fibrillation Milton Lancasterg, DO 02/28/2021 Z79.01 roasterman (current) use of antic oagulants Milton Dooleylogg, DO 02/28/2021 D64.9 Anemia, unspecified Douglaser Bullock, DO 02/28/2021 I10 Essential (primary) hypertension Milton Sanchez, DO 01/31/2021 Z01.810 Encounter for preprocedural card iovascular examination Milton Sanchez, DO 01/31/2021 M25.511 Pain in right shoulder Douglas Sanchez, DO 01/31/2021 I48.91 Unspecified atrial fibrillation Milton Lancasterg, DO 01/31/2021 Z79.01 roasterman (current) use of antic oagulants Milton Dooleylogg, DO 01/31/2021 Z79.84 penit[facility]iary (current) use of oral hypoglycemic drugs Milton Sanchez, DO 01/31/2021 E11.9 Type 2 diabetes mellitus without complications Milton Sanchez, DO 01/31/2021 I10 Essential (primary) hypertension Milton Lancasterg, DO 01/31/2021 G47.33 Obstructive sleep apnea (adult) (pediatric) Milton Sanchez, DO 11/10/2020 E78.5 Hyperlipidemia, unspecified Aamir Goldman M.D. 11/10/2020 I48.91 Unspecified atrial fibrillation Nader Goldman M.D. 11/10/2020 Z79.01 roasterman (current) use of antic oagulants Nader Goldman [...] M.D. 11/10/2020 Z91.14 Patient's other noncompliance wi medication regimen Nader Goldman M.D. 09/08/2020 I48.91 Unspecified atrial fibrillation Nader Goldman M.D. 09/08/2020 Z79.01 [facility]iary (current) use of antic oagulants Nader Goldman [...] Goldman M.D. Plan of Treatment Future Appointment(s):* 03/08/2021 11:00 am - Milton Sanchez, at [facility] * 03/31/2021 2:30 pm - Nader Goldman M.D. at [facility] 11/10/2020 - Nader Goldman M.D.* E78.5 Hyperlipidemia, unspecified * I48.91 Unspecified atrial fibrillation * Z79.01 [facility] (current) use of anticoagulants * E11.9 Type [...] is anticoagulated. We will continue to monitor.3. [facility]iary (current) use of anticoagulants: Doing well with [...]
--- OUTSIDE RECORDS SUMMARY | 2021-03-14 14:08 | CCD | Continuity of Care Document ---
Author Author Dipak SANCHEZ Organization Unknown Address [address] [address] Phone [phone] Care Team Providers Care Manager Supply Chain Planning Name Role Phone Nader Goldman MD AUTM [phone] [facility] Radiology AUTM [phone] Problems Active Problems Provider Date Hemorrhoids Onset: [...] CPT Code Status Date Vaccine Lot # [id number] Given 01/08/2020 Pneumovax 23 [id number] Given 03/26/2012 Influenza Virus Vaccine [id number] Refused 05/13/2018 Influenza Virus Vaccine, Quadrivalent ([id number]), Derived From Cell [id number] Refused 03/26/2012 Adacel- Tetanus Diphtheria P ertussis [...] H/L Range Note Basic Metabolic Panel 03/03/2021 [facility] Basin Cleaner: Dr Martín Sanchez [place], [place] [id number] [phone] Glucose 175 mg/dL High 74 - 99 [...] mL/min >60 2 Laboratory test finding 03/03/2021 [facility] Basin Cleaner: Dr Martín [place] [address] [phone] Magnesium 1.5 mg/dL Low 1.8 - 2.4 Laboratory test finding 02/28/2021 [facility] [address] [place] [address] [phone] Ammonia 48 uMOL/L High <32 Total Iron Binding Capacit 02/28/2021 [facility] [address] [place] [address] [phone] Iron (Fe) 52 g/dL Low 65-175 Total Iron Binding Capacity 456 g/dL High 250-450 Percent Saturation 11.4 % Low 19.7-50.0 Laboratory test finding 02/28/2021 [facility] [address] [place] [address] [phone] Ferritin 33 NG/ML Normal 26-388 Hepatitis Profile 02/28/2021 [facility]ter [address] [place] [address] [phone] Hepatitis C Virus Kelly Index 0.1 INDEX Normal <0.8 3 Hepatitis B Surface Antigen NEGATIVE Normal Negative Hepatitis B Core Antibody Igm NEGATIVE Normal Negative Hepatitis A Antibody Igm NEGATIVE Normal Negative Laboratory test finding 02/28/[address] [address] [phone] Hepatitis B Surface Antibody NEGATIVE Normal Pos itive Laboratory test finding 02/28/[address] [address] [phone] Hepatitis B Surface Antibody <pending> Complete Blood Count 02/28/2021 [facility] Basin Cleaner: Dr Martín [place] [address] [phone] WBC 9.2 x10*3/UL 4.1 - 10.9 RBC [...] 2.0 - 7.8 Comprehensive Chem Profile 02/28/2021 [facility] Basin Cleaner: Dr Martín Sanchez [place] [id number] [phone] Glucose 111 mg/dL High 74 - 99 [...] mL/min >60 5 Ua Dipstick Only 02/28/2021 [facility] , Basin Cleaner: Dr Martín [place] [address] [phone] Urine Color YELLOW Yellow Urine Appearance CLEAR Clear Urine PH 6.0 units 5.0 - 9.0 Urine Specific [place] 1.020 1.005 - 1.030 Urine Leukocytes NEGATIVE Negative Urine Blood NEGATIVE Negative Urine Protein NEGATIVE Negative -Trace Urine Glucose NEGATIVE mg/dL Negative Urine Nitrite NEGATIVE Negative Urine Ketone NEGATIVE mg/dL Negative Urine Bilirubin NEGATIVE Negative Urine Urobilinogen 0.2 mg/dL 0.2 - 1.0 Prothrombin Time/Inr 02/28/2021 [facility] [address] [place] [id number] [phone] Prothrombin Time 15.4 seconds High 12.7-14.5 Inr 1.18 Normal 6 Istat Chem8+ Panel 02/23/2021 [facility] nter [address] [place] [address] [phone] iSTAT HCT 37.0 % Low 38.0-51.0 iSTAT Glucose 145 mg/dL High 70-105 iSTAT Sodium 138 mEq/L Normal 136-145 iSTAT Potassium 4.3 mEq/L Normal 3.5-5.1 iSTAT CA++ 5.2 mg/dL Normal 4.5-5.3 iSTAT Chloride 100 mEq/L Normal 98-109 iSTAT Co2 27.0 MM/L Normal 23.0-27.0 iSTAT BUN 20 mg/dL Normal 8-26 iSTAT Creatinine 0.8 mg/dL Normal 0.6-1.3 Laboratory test finding 02/23/[address] [address] [phone] iSTAT Troponin 0.00 NG/ML Normal 0.00-0.08 Laboratory test finding 02/23/[address] [address] [phone] NT-Pro BNP 303 pg/mL High <125 Lipase 249 U/L Normal 73-393 Thyroid Stimulating Hormone 1.080 uIU/ML Normal 0.358-3.740 Free T4 1.07 ng/dL Normal 0.76-1.46 Cardiac Marker Panel 02/23/2021 [facility] [address] [place] [address] [phone] CPK Creatine Phosphokinase 102 U/L Normal 39-30 8 CK-MB Value Mass 3.3 NG/ML Normal <3.6 MB/CK Relative Index 3.24 Normal < Or =4 7 Troponin I < 0.02 NG/ML Normal < 0.10 8 Liver Profile 02/23/2021 [facility] [address] [place] [address] [phone] Ast/Sgot 24 U/L Normal 7-37 Alt/SGPT 32 U/L Normal 12-78 Alkaline Phosphatase 67 U/L Normal 45-117 Bilirubin,Total 0.9 mg/dL Normal 0.2-1.0 Bilirubin,Direct 0.3 mg/dL High 0.0-0.2 Total Protein 7.2 GM/DL Normal 6.4-8.2 Albumin 3.1 GM/DL Low 3.2-5.2 Albumin/Globulin Ratio 0.8 Normal CBC With Differential 02/23/[address] [address] [phone] White Blood Count 10.8 10 High 4.0-10.0 [...] 36.0-66.0 Lymph % 19.9 % Low 24.0-44.0 [place] % 9.5 % High 2.0-8.0 Eos % 2.3 % Normal 0.0-3.0 Baso % 1.1 % High 0.0-1.0 Immature Granulocyte % 0.4 % Normal 0-3.0 Nucleated Red Blood Cell % 0.0 % Normal 0-0 Neutrophils # 7.2 10 Normal 1.5-8.5 Lymph # 2.1 10 Normal 1.5-5.0 [place] # 1.0 10 High 0.0-0.8 Eos # 0.3 10 Normal 0.0-0.5 Baso # 0.1 10 Normal 0.0-0.2 Influenza A/B RSV Covid Amp 02/23/[address] [address] [phone] Influenza A Amplification NEGATIVE Normal Negati ve 9 Influenza B Amplification NEGATIVE Normal Negative 10 RSV Amplification NEGATIVE Normal Negative 11 Sars Covid-19 Amplification NEGATIVE Normal Negative 12 Laboratory test finding 02/23/[address] [place] [address] [phone] iSTAT Troponin 0.00 NG/ML Normal 0.00-0.08 Laboratory test finding 02/23/2021 [facility] [address] [place] [address] [phone] iSTAT Troponin 0.01 NG/ML Normal 0.00-0.08 A1c 01/31/2021 [facility] Basin Cleaner: Dr Martín Sanchez [place] [id number] [phone] Hba1c 6.9 % High <5.7 13 Est Avg Glucose 151 mg/dL High 60 - 110 Laboratory test finding 01/31/2021 [facility] Basin Cleaner: Dr Martín Sanchez [place] [id number] [phone] Magnesium 1.6 mg/dL Low 1.8 - 2.4 Comprehensive Chem Profile 01/31/2021 [facility] Basin Cleaner: Dr Martín [place] [address] [phone] Glucose 75 mg/dL 74 - 99 14 [...] mL/min >60 15 Complete Blood Count 11/10/2020 [facility] Basin Cleaner: Dr [place]ín [place] [address] [phone] WBC 9.0 x10*3/UL 4.1 - 10.9 RBC [...] 6.6 x10*3/UL 2.0 - 7.8 A1c 11/10/2020 [facility] , Basin Cleaner: Dr Martín Sanchez [place], [place] [id number] [phone] Hba1c 6.7 % High <5.7 16 Est Avg Glucose 146 mg/dL High 60 - 110 Comprehensive Chem Profile 11/10/2020 [facility] Basin Cleaner: Dr Martín Sanchez [place], [place] [id number] [phone] Glucose 104 mg/dL High 74 - 99 [...] mL/min >60 18 Complete Blood Count 09/08/2020 [facility] Basin Cleaner: Dr [place]ín [place] [address] [phone] WBC 10.3 x10*3/UL 4.1 - 10.9 RBC [...] 7.4 x10*3/UL 2.0 - 7.8 A1c 09/08/2020 [facility] Basin Cleaner: Dr Martín [place] [address] [phone] Hba1c 6.7 % High <5.7 19 Est Avg Glucose 146 mg/dL High 60 - 110 Comprehensive Chem Profile 09/08/2020 [facility] Basin Cleaner: Dr Martín [place] [address] [phone] Glucose 113 mg/dL High 74 - 99 [...] LITTLE GFR LEFT ESRD GFR <15 ON ARMORED SERVICE TECHNICIAN 3 Negative Not infected with HCV, unless [...] LITTLE GFR LEFT ESRD GFR <15 ON ARMORED SERVICE TECHNICIAN 6 THERAPUTIC HUMAN INR VALUES INDICATIONS NORMAL [...] 8 Troponin I Reference Interva l for Desk LOCI: 99th Percentile= 0.00-0.045 ng/ml Risk Stratification: [...] pathogens. DISCLAIMER: Testing was performed using the [employer] SARS-CoV-2 test. This test was developed and its performance characteristics determined by [employer]. This test has not been FDA cleared [...] LITTLE GFR LEFT ESRD GFR <15 ON ARMORED SERVICE TECHNICIAN 16 Lab Result Notes: Pre-Diabetes 5.7 - [...] LITTLE GFR LEFT ESRD GFR <15 ON ARMORED SERVICE TECHNICIAN 19 Lab Result Notes: Pre-Diabetes 5.7 - [...] LITTLE GFR LEFT ESRD GFR <15 ON ARMORED SERVICE TECHNICIAN Procedures Date Code Description Status 03/03/2021 47781 Office/Outpatient Established Mo d MDM 30-39 Min Completed 02/28/2021 68176 Office/Outpatient Established Mo d MDM 30-39 Min Completed 01/31/2021 69871 Office/Outpatient Established Mo d MDM 30-39 Min Completed 01/31/2021 31003 EKG/Interpretation & Report Comp leted 11/10/2020 41680 Office/Outpatient Established Mo d MDM 30-39 Min Completed 11/09/2020 [id number] Colonoscopy Completed 09/08/2020 64886 Trans Care SRV W/I 14D Of Shahrzad BYNUM mm W/I 2 Dys Med Rec Completed 01/21/2019 [id number] Colonoscopy Completed 12/10/2018 [id number] Colonoscopy Completed 11/13/2018 [id number] Diabetic Retinal Eye Exam [facility] 06/22/2015 [id number] Diabetic Retinal Eye Exam [facility] Medical Devices Description No Information Available Encounters Type Date Location Provider Dx Diagnosis Office Visit 03/03/2021 11:40a [facility] 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 I48.91 Unspecified atrial fibrillation Z79.01 [facility] (current) use of a nticoagulants Z91.14 Patient's [...] Description Provider 03/03/2021 G93.40 Encephalopathy, unspecified Chri stopher Lisseth, DO 03/03/2021 G47.01 Insomnia due to medical conditio n Shaileshopher Holliston, DO 03/03/2021 K70.30 Alcoholic cirrhosis of liver wit hout ascites Milton Dooleylogg, DO 03/03/2021 R60.9 Edema, unspecified Christopher K ellogg, DO 03/03/2021 I48.91 Unspecified atrial fibrillation Milton Dooleylogg, DO 03/03/2021 Z79.01 terminal block assembler (current) use of antic oagulants Milton Dooleylogg, DO 03/03/2021 D64.9 Anemia, unspecified Douglaser Holliston, DO 03/03/2021 E83.42 Hypomagnesemia Milton Dooleyl ogg, DO 02/28/2021 G93.40 Encephalopathy, unspecified Chri stopher Lisseth, DO 02/28/2021 G47.01 Insomnia due to medical conditio n Shaileshopher Holliston, DO 02/28/2021 K70.30 Alcoholic cirrhosis of liver wit hout ascites Douglaser Lisseth, DO 02/28/2021 R60.9 Edema, unspecified Christopher K ellogg, DO 02/28/2021 I48.91 Unspecified atrial fibrillation Milton Dooleylogg, DO 02/28/2021 Z79.01 terminal block assembler (current) use of antic oagulants Milton Lisseth, DO 02/28/2021 D64.9 Anemia, unspecified Douglaser Holl[place], DO 02/28/2021 I10 Essential (primary) hypertension Milton Sanchez, DO 01/31/2021 Z01.810 Encounter for preprocedural card iovascular examination Milton Sanchez, DO 01/31/2021 M25.511 Pain in right shoulder Douglas Sanchez, DO 01/31/2021 I48.91 Unspecified atrial fibrillation Milton Sanchez, DO 01/31/2021 Z79.01 [facility] (current) use of antic oagulants Shaileshluna Lisseth, DO 01/31/2021 Z79.84 terminal block assembler (current) use of oral hypoglycemic drugs Shaileshluna Dooleylogg, DO 01/31/2021 E11.9 Type 2 diabetes mellitus without complications Shaileshluna Lancasterg, DO 01/31/2021 I10 Essential (primary) hypertension Shaileshluna Lisseth, DO 01/31/2021 G47.33 Obstructive sleep apnea (adult) (pediatric) Milton Sanchez, DO 11/10/2020 E78.5 Hyperlipidemia, unspecified Aamir Goldman M.D. 11/10/2020 I48.91 Unspecified atrial fibrillation Nader Goldman M.D. 11/10/2020 Z79.01 terminal block assembler (current) use of antic oagulants Nader Goldman [...] fibrillation Nader Goldman M.D. 09/08/2020 Z79.01 terminal block assembler (current) use of antic oagulants Nader Goldman [...] Future Appointment(s):* 03/08/2021 11:00 am - Milton Sanchez DO at [facility] * 03/31/2021 2:30 pm - Nader Goldmna M.D. at [facility] 11/10/2020 - Nader Goldman M.D.* E78.5 Hyperlipidemia, unspecified * I48.91 Unspecified atrial fibrillation * Z79.01 [facility] (current) use of anticoagulants * E11.9 Type [...] is anticoagulated. We will continue to monitor.3. [facility] (current) use of anticoagulants: Doing well with [...]
--- OUTSIDE RECORDS SUMMARY | 2021-03-14 14:08 | CCD ---
Continuity of Care Document (CCD) Created on: 03/08/2021 Martir Dipak External Reference #: [id number] : [id number] Sex: Male Author Author Dipak SANCHEZ O Organization Unknown Address [address] [address] Phone [phone] Care Team Providers Care Investigator Vice Name Role Phone Nader Goldman MD AUTM [phone] [facility] Radiology AUTM [phone] Problems Active Problems Provider Date Hemorrhoids Onset: [...] Sanchez MD 01/17/2018 Lancet Device With Ejector [facility] use as directed 1unzana Goldman M.D. 06/20/2015 Lancets 30G 30G Misc test twice a day and as needed e11.9 200unzana Goldman M.D. 06/20/2015 [facility] [...] CPT Code Status Date Vaccine Lot # [id number] Given 01/08/2020 Pneumovax 23 [id number] Given 03/26/2012 Influenza Virus Vaccine [id number] Refused 05/13/2018 Influenza Virus Vaccine, Quadrivalent ([id number]), Derived From Cell [id number] Refused 03/26/2012 Adacel- Tetanus Diphtheria P ertussis [...] H/L Range Note Basic Metabolic Panel 03/08/2021 [facility] Sample Cutter: Dr Martín Gregorio [place] [id number] [phone] Glucose 108 mg/dL High 74 - 99 [...] mL/min >60 2 Laboratory test finding 03/08/2021 [facility] Sample Cutter: CARMELA Guzmán [id number] [phone] Magnesium 1.9 mg/dL 1.8 - 2.4 Laboratory test finding 03/03/2021 [facility] shukri bush Sample Cutter: Dr Martín [place] [address] [phone] Magnesium 1.5 mg/dL Low 1.8 - 2.4 Basic Metabolic Panel 03/03/2021 [facility] shukri Sample Cutter: Dr Martín [place] [address] [phone] Glucose 175 mg/dL High 74 - 99 [...] mL/min >60 4 Laboratory test finding 02/28/2021 [facility] [address] [id number] [phone] Hepatitis B Surface Antibody NEGATIVE Normal Pos itive Ua Dipstick Only 02/28/2021 [facility] Tabor Sample Cutter: Dr Martín Sanchez [place] [id number] [phone] Urine Color YELLOW Yellow Urine Appearance CLEAR Clear Urine PH 6.0 units 5.0 - 9.0 Urine Specific [place] 1.020 1.005 - 1.030 Urine Leukocytes NEGATIVE Negative Urine Blood NEGATIVE Negative Urine Protein NEGATIVE Negative -Trace Urine Glucose NEGATIVE mg/dL Negative Urine Nitrite NEGATIVE Negative Urine Ketone NEGATIVE mg/dL Negative Urine Bilirubin NEGATIVE Negative Urine Urobilinogen 0.2 mg/dL 0.2 - 1.0 Comprehensive Chem Profile 02/28/2021 [facility] sethi Sample Cutter: Dr Martín [place] [address] [phone] Glucose 111 mg/dL High 74 - 99 [...] mL/min >60 6 Complete Blood Count 02/28/2021 [facility] Sample Cutter: Dr Martín [place] [address] [phone] WBC 9.2 x10*3/UL 4.1 - 10.9 RBC [...] 2.0 - 7.8 Laboratory test finding 02/28/2021 [facility] [address] [place] [address] [phone] Hepatitis B Surface Antibody <pending> Hepatitis Profile 02/28/[address] [facility] [address] [place] [address] [phone] Hepatitis C Virus Kelly Index 0.1 INDEX Normal <0.8 7 Hepatitis B Surface Antigen NEGATIVE Normal Negative Hepatitis B Core Antibody Igm NEGATIVE Normal Negative Hepatitis A Antibody Igm NEGATIVE Normal Negative Laboratory test finding 02/28/[address] [address] [phone] Ferritin 33 NG/ML Normal 26-388 Total Iron Binding Capacit 02/28/[address] [address] [phone] Iron (Fe) 52 g/dL Low 65-175 Total Iron Binding Capacity 456 g/dL High 250-450 Percent Saturation 11.4 % Low 19.7-50.0 Laboratory test finding 02/28/[address] [address] [phone] Ammonia 48 uMOL/L High <32 Prothrombin Time/Inr 02/28/2021 [facility] enter [address] [place] [address] [phone] Prothrombin Time 15.4 seconds High 12.7-14.5 Inr 1.18 Normal 8 CBC With Differential 02/23/[address] [address] [phone] White Blood Count 10.8 10 High 4.0-10.0 [...] 36.0-66.0 Lymph % 19.9 % Low 24.0-44.0 Sawyer % 9.5 % High 2.0-8.0 Eos % 2.3 % Normal 0.0-3.0 Baso % 1.1 % High 0.0-1.0 Immature Granulocyte % 0.4 % Normal 0-3.0 Nucleated Red Blood Cell % 0.0 % Normal 0-0 Neutrophils # 7.2 10 Normal 1.5-8.5 Lymph # 2.1 10 Normal 1.5-5.0 Sawyer # 1.0 10 High 0.0-0.8 Eos # 0.3 10 Normal 0.0-0.5 Baso # 0.1 10 Normal 0.0-0.2 Istat Chem8+ Panel 02/23/[address] [facility] [address] [place] [address] [phone] iSTAT HCT 37.0 % Low 38.0-51.0 iSTAT Glucose 145 mg/dL High 70-105 iSTAT Sodium 138 mEq/L Normal 136-145 iSTAT Potassium 4.3 mEq/L Normal 3.5-5.1 iSTAT CA++ 5.2 mg/dL Normal 4.5-5.3 iSTAT Chloride 100 mEq/L Normal 98-109 iSTAT Co2 27.0 MM/L Normal 23.0-27.0 iSTAT BUN 20 mg/dL Normal 8-26 iSTAT Creatinine 0.8 mg/dL Normal 0.6-1.3 Laboratory test finding 02/23/[address] [address] [phone] iSTAT Troponin 0.00 NG/ML Normal 0.00-0.08 Laboratory test finding 02/23/[address] [address] [phone] NT-Pro BNP 303 pg/mL High <125 Lipase 249 U/L Normal 73-393 Thyroid Stimulating Hormone 1.080 uIU/ML Normal 0.358-3.740 Free T4 1.07 ng/dL Normal 0.76-1.46 Liver Profile 02/23/[address] [facility] [address] [place] [address] [phone] Ast/Sgot 24 U/L Normal 7-37 Alt/SGPT 32 U/L Normal 12-78 Alkaline Phosphatase 67 U/L Normal 45-117 Bilirubin,Total 0.9 mg/dL Normal 0.2-1.0 Bilirubin,Direct 0.3 mg/dL High 0.0-0.2 Total Protein 7.2 GM/DL Normal 6.4-8.2 Albumin 3.1 GM/DL Low 3.2-5.2 Albumin/Globulin Ratio 0.8 Normal Cardiac Marker Panel 02/23/2021 [facility] enter [address] [place] [address] [phone] CPK Creatine Phosphokinase 102 U/L Normal 39-30 8 CK-MB Value Mass 3.3 NG/ML Normal <3.6 MB/CK Relative Index 3.24 Normal < Or =4 9 Troponin I < 0.02 NG/ML Normal < 0.10 10 Influenza A/B RSV Covid Amp 02/23/2021 [facility] [address] [place] [address] [phone] Influenza A Amplification NEGATIVE Normal Negati ve 11 Influenza B Amplification NEGATIVE Normal Negative 12 RSV Amplification NEGATIVE Normal Negative 13 Sars Covid-19 Amplification NEGATIVE Normal Negative 14 Laboratory test finding 02/23/2021 [facility] [address] [place] [address] [phone] iSTAT Troponin 0.00 NG/ML Normal 0.00-0.08 Laboratory test finding 02/23/2021 [facility] [address] [place] [address] [phone] iSTAT Troponin 0.01 NG/ML Normal 0.00-0.08 A1c 01/31/2021 [facility] Sample Cutter: Dr Martín Sanchez [place] [id number] [phone] Hba1c 6.9 % High <5.7 15 Est Avg Glucose 151 mg/dL High 60 - 110 Laboratory test finding 01/31/2021 [facility] Sample Cutter: Dr Martín Sanchez [place] [id number] [phone] Magnesium 1.6 mg/dL Low 1.8 - 2.4 Comprehensive Chem Profile 01/31/2021 [facility] Sample Cutter: Dr Martín [place] [address] [phone] Glucose 75 mg/dL 74 - 99 16 [...] mL/min >60 17 Complete Blood Count 11/10/2020 [facility] Sample Cutter: Dr Martín [place] [address] [phone] WBC 9.0 x10*3/UL 4.1 - 10.9 RBC [...] 6.6 x10*3/UL 2.0 - 7.8 A1c 11/10/2020 [facility] Sample Cutter: Dr Martín Sanchez [place], [place] [id number] [phone] Hba1c 6.7 % High <5.7 18 Est Avg Glucose 146 mg/dL High 60 - 110 Comprehensive Chem Profile 11/10/2020 [facility] sethi Sample Cutter: Dr Martín Sanchez [place], [place] [id number] [phone] Glucose 104 mg/dL High 74 - 99 [...] mL/min >60 20 Complete Blood Count 09/08/2020 [facility] shukri gordon Sample Cutter: Dr Martín Sanchez [place], [place] [id number] [phone] WBC 10.3 x10*3/UL 4.1 - 10.9 RBC [...] 7.4 x10*3/UL 2.0 - 7.8 A1c 09/08/2020 [facility] Sample Cutter: Dr Martín [place] [address] [phone] Hba1c 6.7 % High <5.7 21 Est Avg Glucose 146 mg/dL High 60 - 110 Comprehensive Chem Profile 09/08/2020 [facility] Sample Cutter: Dr Martín [place] [address] [phone] Glucose 113 mg/dL High 74 - 99 [...] LITTLE GFR LEFT ESRD GFR <15 ON WOOD [employer] BUILDER 3 100-125 mg/dL PRE-DIABET ES/FASTING >126 mg/dL DIABETES/FASTING 4 CHRONIC KIDNEY DISEASE STAGI NG PER NKF STAGE I & II GFR >= 60 NORMAL TO MILDLY DECREASED STAGE III GFR 30-59 MODERATELY DECREASED STAGE IV GFR 15-29 SEVERELY DECREASED STAGE V GFR <15 VERY LITTLE GFR LEFT ESRD GFR <15 ON WOOD MODEL BUILDER 5 100-125 mg/dL PRE-DIABET ES/FASTING >126 mg/dL DIABETES/FASTING 6 CHRONIC KIDNEY DISEASE STAGI NG PER NKF STAGE I & II GFR >= 60 NORMAL TO MILDLY DECREASED STAGE III GFR 30-59 MODERATELY DECREASED STAGE IV GFR 15-29 SEVERELY DECREASED STAGE V GFR <15 VERY LITTLE GFR LEFT ESRD GFR <15 ON WOOD MODEL BUILDER 7 Negative Not infected with HCV, unless [...] Troponin I Reference Interva l for Siemens Engagor LOCI: 99th Percentile= 0.00-0.045 ng/ml Risk Stratification: [...] pathogens. DISCLAIMER: Testing was performed using the [employer] SARS-CoV-2 test. This test was developed and its performance characteristics determined by [employer]. This test has not been FDA cleared [...] LITTLE GFR LEFT ESRD GFR <15 ON WOOD MODEL BUILDER 18 Lab Result Notes: Pre-Diabetes 5.7 - [...] LITTLE GFR LEFT ESRD GFR <15 ON WO[employer] MO[employer] BUILDER 21 Lab Result Notes: Pre-Diabetes 5.7 - [...] LITTLE GFR LEFT ESRD GFR <15 ON [employer]DER Procedures Date Code Description Status 03/03/2021 97256 Office/Outpatient Established Mo d MDM 30-39 Min Completed 02/28/2021 59235 Office/Outpatient Established Mo d MDM 30-39 Min Completed 01/31/2021 90141 Office/Outpatient Established Mo d MDM 30-39 Min Completed 01/31/2021 75216 EKG/Interpretation & Report Comp leted 11/10/2020 71644 Office/Outpatient Established Mo d MDM 30-39 Min Completed 11/09/2020 [id number] Colonoscopy Completed 09/08/2020 22647 Trans Care SRV W/I 14D Of DC, Co mm W/I 2 Dys Med Rec Completed 01/21/2019 [id number] Colonoscopy Completed 12/10/2018 [id number] Colonoscopy Completed 11/13/2018 [id number] Diabetic Retinal Eye Exam Comple nory 06/22/2015 [id number] Diabetic Retinal Eye Exam Comple [facility] Medical Devices Description No Information Available Encounters Type Date Location Provider Dx Diagnosis Office Visit 03/03/2021 11:40a [facility] Crystal Sanchez DO G93.40 Encephalopathy, unspecified G47.01 Insomnia due to medical cond ition K70.30 Alcoholic cirrhosis of liver without ascites R60.9 Edema, unspecified I48.91 Unspecified atrial fibrillat ion Z79.01 penitentiary (current) use of a nticoagulants D64.9 Anemia, unspecified E83.42 Hypomagnesemia Office Visit 02/28/2021 10:40a [facility] DO G93.40 Encephalopathy, unspecified G47.01 Insomnia due to medical cond ition K70.30 Alcoholic cirrhosis of liver without ascites R60.9 Edema, unspecified I48.91 Unspecified atrial fibrillat ion Z79.01 penitentiary (current) use of a nticoagulants D64.9 Anemia, unspecified I10 Essential (primary) hyperten margie Office Visit 01/31/2021 1:40p [facility] Sanchez DO Z01.810 Encounter for preprocedural cardiovascular examination M25.511 Pain in right shoulder I48.91 Unspecified atrial fibrillat ion Z79.01 supervisor intermediates (current) use of a nticoagulants Z79.84 supervisor intermediates (current) use of o ral hypoglycemic drugs E11.9 Type 2 diabetes mellitus wit hout complications I10 Essential (primary) hyperten margie G47.33 Obstructive sleep apnea (nancy lt) (pediatric) Office Visit 11/10/2020 11:30a [facility] PKaren Goldman M.D. E78.5 Hyperlipidemia, unspecified [...] with medication regimen Office Visit 09/08/2020 10:00a [facility] PKaren Goldman M.D. I48.91 Unspecified atrial fibrillation Z79.01 penitentiary [...] er Lisseth, DO 03/08/2021 E83.42 Hypomagnesemia Christopher Rock[place] ogg, DO 03/03/2021 G93.40 Encephalopathy, unspecified Chri stopher Lisseth, DO 03/03/2021 G47.01 Insomnia due to medical conditio n Christopher [place], DO 03/03/2021 K70.30 Alcoholic cirrhosis of liver wit hout ascites Shaileshopher [place], DO 03/03/2021 R60.9 Edema, unspecified Christopher K ellogg, DO 03/03/2021 I48.91 Unspecified atrial fibrillation Douglaser [place], DO 03/03/2021 Z79.01 supervisor intermediates (current) use of antic oagulants Milton [place], DO 03/03/2021 D64.9 Anemia, unspecified Shaileshopher [place], DO 03/03/2021 E83.42 Hypomagnesemia Christopher Denisha ogg, DO 02/28/2021 G93.40 Encephalopathy, unspecified Chri stopher [place], DO 02/28/2021 G47.01 Insomnia due to medical conditio n Christopher [place], DO 02/28/2021 K70.30 Alcoholic cirrhosis of liver wit hout ascites Shaileshopher [place], DO 02/28/2021 R60.9 Edema, unspecified Christopher K ellogg, DO 02/28/2021 I48.91 Unspecified atrial fibrillation Douglaser [place], DO 02/28/2021 Z79.01 penitentiary (current) use of antic oagulants Shaileshopher Lisseth, DO 02/28/2021 D64.9 Anemia, unspecified Christopher Lisseth, DO 02/28/2021 I10 Essential (primary) hypertension Milton Sanchez, DO 01/31/2021 Z01.810 Encounter for preprocedural card iovascular examination Milton Sanchez, DO 01/31/2021 M25.511 Pain in right shoulder Douglas Sanchez, DO 01/31/2021 I48.91 Unspecified atrial fibrillation Shaileshluna Sanchez, DO 01/31/2021 Z79.01 supervisor intermediates (current) use of antic oagulants Shaileshluna Dooleylogg, DO 01/31/2021 Z79.84 supervisor intermediates (current) use of oral hypoglycemic drugs Shaileshluna Sanchez, DO 01/31/2021 E11.9 Type 2 diabetes mellitus without complications Shaileshluna Lancasterg, DO 01/31/2021 I10 Essential (primary) hypertension Shaileshluna Lisseth, DO 01/31/2021 G47.33 Obstructive sleep apnea (adult) (pediatric) Douglasmarina Lisseth, DO 11/10/2020 E78.5 Hyperlipidemia, unspecified Aamir Goldman M.D. 11/10/2020 I48.91 Unspecified atrial fibrillation Nader Goldman M.D. 11/10/2020 Z79.01 supervisor intermediates (current) use of antic oagulants Nader Goldman [...] atrial fibrillation Nader Goldman M.D. 09/08/2020 Z79.01 supervisor intermediates (current) use of antic oagulants Nader Goldman [...] 11:00 am - Milton Sanchez DO at [facility] * 03/31/2021 2:30 pm - Nader Goldman M.D. at [facility] 11/10/2020 - Nader Goldman M.D.* E78.5 Hyperlipidemia, unspecified * I48.91 Unspecified atrial fibrillation * Z79.01 supervisor intermediates (current) use of anticoagulants * E11.9 Type [...] is anticoagulated. We will continue to monitor.3. supervisor intermediates (current) use of anticoagulants: Doing well with [...]
--- OUTSIDE RECORDS SUMMARY | 2021-03-14 14:09 | CCD | Continuity of Care Document ---
Author Author Dipak SANCHEZ Organization Unknown Address [address] [address] Phone [phone] Care Team Providers [employer] Worker Name Role Phone Nader Goldman MD AUTM [phone] [facility] Radiology AUTM [phone] Problems Active Problems Provider Date Hemorrhoids Onset: [...] Date Description Comments Sex Unknown ETOH Use Consumes 1 six pack of beer per day Tobacco Use Start: Unknown Patient has never [...] needed e11.9 200unzana Goldman M.D. 06/20/2015 Glucometer Misc use for [...] CPT Code Status Date Vaccine Lot # [id number] Given 01/08/2020 Pneumovax 23 [id number] Given 03/26/2012 Influenza Virus Vaccine [id number] Refused 05/13/2018 Influenza Virus Vaccine, Quadrivalent (Cciiv4), Derived From Cell [id number] Refused 03/26/2012 Adacel- Tetanus Diphtheria P ertussis Vital Signs Date Vital Result Comment 02/28/2021 10:51am BP Systolic 102 mmHg BP Diastolic 80 mmHg Heart Rate 81 /min Height 70 inches 5'10" Weight 266.00 lb O2 % BldC Oximetry 99 % RM Air BMI (Body Mass Index) 38.2 kg/m2 01/31/2021 1:51pm BP Systolic 118 mmHg BP Diastolic 94 mmHg Heart Rate 73 /min Height 70 inches 5'10" Weight 249.00 lb O2 % BldC Oximetry 98 % BMI (Body Mass Index) 35.7 kg/m2 Results Test Acquired Date Facility Test Result H/L Range Note Laboratory test finding 02/28/[address] [facility] [place] [address], [place] [id number] [phone] Ammonia 48 uMOL/L High <32 Total Iron Binding Capacit 02/28/2021 [facility] [address] [place] [address] [id number] [phone] Iron (Fe) 52 g/dL Low 65-175 Total Iron Binding Capacity 456 g/dL High 250-450 Percent Saturation 11.4 % Low 19.7-50.0 Laboratory test finding 02/28/[address] [facility] [place] [address], [place] [id number] [phone] Ferritin 33 NG/ML Normal 26-388 Hepatitis Profile 02/28/2021 [facility] [address], [place] [id number] [phone] Hepatitis C Virus Kelly Index 0.1 INDEX Normal <0.8 1 Hepatitis B Surface Antigen NEGATIVE Normal Negative Hepatitis B Core Antibody Igm NEGATIVE Normal Negative Hepatitis A Antibody Igm NEGATIVE Normal Negative Laboratory test finding 02/28/2021 [facility] [address] [place] [address] [phone] Hepatitis B Surface Antibody NEGATIVE Normal Pos itive Laboratory test finding 02/28/2021 [facility] [address] [place] [address] [phone] Hepatitis B Surface Antibody <pending> Complete Blood Count 02/28/2021 [facility] shukri gordon [facility]: Dr Martín [place] [address] [phone] WBC 9.2 x10*3/UL 4.1 - 10.9 RBC [...] 2.0 - 7.8 Comprehensive Chem Profile 02/28/2021 [facility] [employer] [facility]: Dr Martín [place] [address] [phone] Glucose 111 mg/dL High 74 - 99 2 BUN 18 mg/dL 7 - 18 Creatinine [...] mL/min >60 GFR >= 60 mL/min >60 3 Ua Dipstick Only 02/28/2021 [facility]: Dr Martín [place] [address] [phone] Urine Color YELLOW Yellow Urine Appearance CLEAR Clear Urine PH 6.0 units 5.0 - 9.0 Urine Specific [place] 1.020 1.005 - 1.030 Urine Leukocytes NEGATIVE Negative Urine Blood NEGATIVE Negative Urine Protein NEGATIVE Negative -Trace Urine Glucose NEGATIVE mg/dL Negative Urine Nitrite NEGATIVE Negative Urine Ketone NEGATIVE mg/dL Negative Urine Bilirubin NEGATIVE Negative Urine Urobilinogen 0.2 mg/dL 0.2 - 1.0 Prothrombin Time/Inr 02/28/2021 [facility] [address] [place] [address] [phone] Prothrombin Time 15.4 seconds High 12.7-14.5 Inr 1.18 Normal 4 Cardiac Marker Panel 02/23/2021 [facility] [address] [place] [address] [phone] CPK Creatine Phosphokinase 102 U/L Normal 39-30 8 CK-MB Value Mass 3.3 NG/ML Normal <3.6 MB/CK Relative Index 3.24 Normal < Or =4 5 Troponin I < 0.02 NG/ML Normal < 0.10 6 Istat Chem8+ Panel 02/23/2021 [facility] [address] [place] [address] [phone] iSTAT HCT 37.0 % Low 38.0-51.0 iSTAT Glucose 145 mg/dL High 70-105 iSTAT Sodium 138 mEq/L Normal 136-145 iSTAT Potassium 4.3 mEq/L Normal 3.5-5.1 iSTAT CA++ 5.2 mg/dL Normal 4.5-5.3 iSTAT Chloride 100 mEq/L Normal 98-109 iSTAT Co2 27.0 MM/L Normal 23.0-27.0 iSTAT BUN 20 mg/dL Normal 8-26 iSTAT Creatinine 0.8 mg/dL Normal 0.6-1.3 Laboratory test finding 02/23/[address] [address] [phone] iSTAT Troponin 0.00 NG/ML Normal 0.00-0.08 Laboratory test finding 02/23/[address] [address] [phone] NT-Pro BNP 303 pg/mL High <125 Lipase 249 U/L Normal 73-393 Thyroid Stimulating Hormone 1.080 uIU/ML Normal 0.358-3.740 Free T4 1.07 ng/dL Normal 0.76-1.46 Liver Profile 02/23/2021 [facility] [address] [place] [address] [phone] Ast/Sgot 24 U/L Normal 7-37 Alt/SGPT 32 U/L Normal 12-78 Alkaline Phosphatase 67 U/L Normal 45-117 Bilirubin,Total 0.9 mg/dL Normal 0.2-1.0 Bilirubin,Direct 0.3 mg/dL High 0.0-0.2 Total Protein 7.2 GM/DL Normal 6.4-8.2 Albumin 3.1 GM/DL Low 3.2-5.2 Albumin/Globulin Ratio 0.8 Normal CBC With Differential 02/23/[address] [address] [phone] White Blood Count 10.8 10 High 4.0-10.0 [...] 36.0-66.0 Lymph % 19.9 % Low 24.0-44.0 Bladen % 9.5 % High 2.0-8.0 Eos % 2.3 % Normal 0.0-3.0 Baso % 1.1 % High 0.0-1.0 Immature Granulocyte % 0.4 % Normal 0-3.0 Nucleated Red Blood Cell % 0.0 % Normal 0-0 Neutrophils # 7.2 10 Normal 1.5-8.5 Lymph # 2.1 10 Normal 1.5-5.0 Bladen # 1.0 10 High 0.0-0.8 Eos # 0.3 10 Normal 0.0-0.5 Baso # 0.1 10 Normal 0.0-0.2 Influenza A/B RSV Covid Amp 02/23/[address] [address] [phone] Influenza A Amplification NEGATIVE Normal Negati ve 7 Influenza B Amplification NEGATIVE Normal Negative 8 RSV Amplification NEGATIVE Normal Negative 9 Sars Covid-19 Amplification NEGATIVE Normal Negative 10 Laboratory test finding 02/23/[address] [address] [phone] iSTAT Troponin 0.00 NG/ML Normal 0.00-0.08 Laboratory test finding 02/23/[address] [address] [phone] iSTAT Troponin 0.01 NG/ML Normal 0.00-0.08 A1c 01/31/2021 [facility]: Dr Mart[address] [place] [address] [phone] Hba1c 6.9 % High <5.7 11 Est Avg Glucose 151 mg/dL High 60 - 110 Laboratory test finding 01/31/2021 [facility] [employer] [facility]: Dr Martín [place] [address] [phone] Magnesium 1.6 mg/dL Low 1.8 - 2.4 Comprehensive Chem Profile 01/31/2021 [facility] sethi [employer] [facility] [employer]: Dr Martín [place] [address] [phone] Glucose 75 mg/dL 74 - 99 12 BUN 14 mg/dL 7 - 18 Creatinine [...] mL/min >60 GFR >= 60 mL/min >60 13 Complete Blood Count 11/10/2020 [facility] shukri gordon [employer]: Dr Martín [place] [address] [phone] WBC 9.0 x10*3/UL 4.1 - 10.9 RBC [...] 6.6 x10*3/UL 2.0 - 7.8 A1c 11/10/2020 [facility]: Dr [address] [place] [address] [phone] Hba1c 6.7 % High <5.7 14 Est Avg Glucose 146 mg/dL High 60 - 110 Comprehensive Chem Profile 11/10/2020 [facility]: Dr Martín [place] [address] [phone] Glucose 104 mg/dL High 74 - 99 15 BUN 14 mg/dL 7 - 18 Creatinine [...] mL/min >60 GFR >= 60 mL/min >60 16 Complete Blood Count 09/08/2020 [facility]: Dr Martín [place] [address] [phone] WBC 10.3 x10*3/UL 4.1 - 10.9 RBC [...] 7.4 x10*3/UL 2.0 - 7.8 A1c 09/08/2020 [facility] [employer]: Dr Martín Sanchez [place], [place] [address] [phone] Hba1c 6.7 % High <5.7 17 Est Avg Glucose 146 mg/dL High 60 - 110 Comprehensive Chem Profile 09/08/2020 [facility] [employer] [facility]: Dr Martín [place] [address] [phone] Glucose 113 mg/dL High 74 - 99 18 BUN 14 mg/dL 7 - 18 Creatinine [...] mL/min >60 GFR >= 60 mL/min >60 19 1 Negative Not infected with HCV, unless recent infection is suspected or other evidence exists to indicate HCV infection. 2 100-125 mg/dL PRE-DIABET ES/FASTING >126 mg/dL DIABETES/FASTING 3 CHRONIC KIDNEY DISEASE STAGI NG PER NKF STAGE I & II GFR >= 60 NORMAL TO MILDLY DECREASED STAGE III GFR 30-59 MODERATELY DECREASED STAGE IV GFR 15-29 SEVERELY DECREASED STAGE V GFR <15 VERY LITTLE GFR LEFT ESRD GFR <15 ON PRODUCTION CONTROL COORDINATOR 4 THERAPUTIC HUMAN INR VALUES INDICATIONS NORMAL RANGES PROPHYLAXIS/TREATMENT OF: VENOUS THROMBOSIS 2.0-3.0 PULMONARY EMBOLISM 2.0-3.0 PREVENTION OF SYSTEMIC EMBOLISM FROM: TISSUE HEART VALVES 2.0-3.0 ACUTE MYOCARDIAL INFARCTION 2.0-3.0 VALVULAR HEART DISEASE 2.0-3.0 ATRIAL FIBRILLATION 2.0-3.0 MECHANICAL VALVES(HIGH RISK) 2.5-3.5 RECURRENT MYOCARDIAL INFARCTION 2.5-3.5 5 DIAGNOSIS CRITERIA MMB ng/ml Relative Index (RI) NON-AMI < or = 5 N/A ENRIQUEZ ZONE > 5 < or = 4 AMI > 5 > 4 6 Troponin I Reference Interva l for Siemens [employer] LOCI: 99th Percentile= 0.00-0.045 ng/ml Risk Stratification: <= 0.10 ng/ml Decreased Risk for Adverse Clinical Events. 0.10-1.50 ng/ml Increased Risk for Adv erse Clinical Events. Evaluation of additional criterion and/or repeat testing in 2-6 hours is suggested to rule out myocardial damage. >= 1.50 ng/ml Indicative of Myocardial Injury. 7 Negative results do not prec lude influenza or RSV virus infection and should not be used as the sole basis for treatment or other patient management decisions. 8 Negative results do not prec lude influenza or RSV virus infection and should not be used as the sole basis for treatment or other patient management decisions. 9 Negative results do not prec lude influenza or RSV virus infection and should not be used as the sole basis for treatment or other patient management decisions. 10 A false negative result may occur if [...] pathogens. DISCLAIMER: Testing was performed using the [employer] SARS-CoV-2 test. This test was developed and its performance characteristics determined by [employer]. This test has not been FDA cleared [...] the authorization is terminated or revoked sooner. 11 Lab Result Notes: Pre-Diabetes 5.7 - 6.4 % Diabetes = or > 6.5% 12 100-125 mg/dL PRE-DIABET ES/FASTING >126 mg/dL DIABETES/FASTING 13 CHRONIC KIDNEY DISEASE STAGI NG PER NKF STAGE I & II GFR >= 60 NORMAL TO MILDLY DECREASED STAGE III GFR 30-59 MODERATELY DECREASED STAGE IV GFR 15-29 SEVERELY DECREASED STAGE V GFR <15 VERY LITTLE GFR LEFT ESRD GFR <15 ON PRODUCTION CONTROL COORDINATOR 14 Lab Result Notes: Pre-Diabetes 5.7 - 6.4 % Diabetes = or > 6.5% 15 100-125 mg/dL PRE-DIABET ES/FASTING >126 mg/dL DIABETES/FASTING 16 CHRONIC KIDNEY DISEASE STAGI NG PER NKF STAGE I & II GFR >= 60 NORMAL TO MILDLY DECREASED STAGE III GFR 30-59 MODERATELY DECREASED STAGE IV GFR 15-29 SEVERELY DECREASED STAGE V GFR <15 VERY LITTLE GFR LEFT ESRD GFR <15 ON PRODUCTION CONTROL COORDINATOR 17 Lab Result Notes: Pre-Diabetes 5.7 - 6.4 % Diabetes = or > 6.5% 18 100-125 mg/dL PRE-DIABET ES/FASTING >126 mg/dL DIABETES/FASTING 19 CHRONIC KIDNEY DISEASE STAGI NG PER NKF STAGE I & II GFR >= 60 NORMAL TO MILDLY DECREASED STAGE III GFR 30-59 MODERATELY DECREASED STAGE IV GFR 15-29 SEVERELY DECREASED STAGE V GFR <15 VERY LITTLE GFR LEFT ESRD GFR <15 ON PRODUCTION CONTROL COORDINATOR Procedures Date Code Description Status 01/31/2021 56676 Office/Outpatient Established Mo d MDM 30-39 Min Completed 01/31/2021 89892 EKG/Interpretation & Report Comp leted 11/10/2020 24284 Office/Outpatient Established Mo d MDM 30-39 Min Completed 11/09/2020 [id number] Colonoscopy Completed 09/08/2020 [id number] Trans Care SRV W/I 14D Of DC, Co mm W/I 2 Dys Med Rec Completed 01/21/2019 [id number] Colonoscopy Completed 12/10/2018 [id number] Colonoscopy Completed 11/13/2018 [id number] Diabetic Retinal Eye Exam Comple [facility] 06/22/2015 [id number] Diabetic Retinal Eye Exam Comple [facility] Medical Devices Description No Information Available Encounters Type Date Location Provider Dx Diagnosis Office Visit 01/31/2021 1:40p [facility] sailaja Sanchez DO Z01.810 Encounter for preprocedural cardiovascular examination M25.511 Pain in right shoulder I48.91 Unspecified atrial fibrillat ion Z79.01 care home (current) use of a nticoagulants Z79.84 care home (current) use of o ral hypoglycemic drugs E11.9 Type 2 diabetes mellitus wit hout complications I10 Essential (primary) hyperten margie G47.33 Obstructive sleep apnea (nancy lt) (pediatric) Office Visit 11/10/2020 11:30a [facility] PKaren Goldman M.D. 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.01 terminal gauger (current) use of a nticoagulants E11.9 Type [...] with medication regimen Office Visit 09/08/2020 10:00a [facility] PKaren Goldman M.D. I48.91 Unspecified atrial fibrillation Z79.01 care home (current) use of a nticoagulants Z91.14 Patient's other noncomplianc e with medication regimen E11.9 Type 2 diabetes mellitus wit hout complications K70.9 Alcoholic liver disease, uns pecified F34.1 Dysthymic disorder G47.33 Obstructive sleep apnea (nancy lt) (pediatric) K21.9 Gastro-esophageal reflux dis ease without esophagitis Z85.038 Personal history of malignan t neoplasm of large intestine Assessments Date Code Description Provider 02/28/2021 G93.40 Encephalopathy, unspecified Chri tona Sanchez, DO 02/28/2021 G47.01 Insomnia due to medical conditio n Shaileshluna Lisseth, DO 02/28/2021 K70.30 Alcoholic cirrhosis of liver wit hout ascites Milton Dooleylogg, DO 02/28/2021 R60.9 Edema, unspecified Milton Chaudhry jasonmariebyron, DO 02/28/2021 I48.91 Unspecified atrial fibrillation Milton Sanchez, DO 02/28/2021 Z79.01 terminal gauger (current) use of antic oagulants Milton Dooleylogg, DO 02/28/2021 D64.9 Anemia, unspecified Milton Lancasterg, DO 02/28/2021 I10 Essential (primary) hypertension Milton Sanchez, DO 01/31/2021 Z01.810 Encounter for preprocedural card iovascular examination Milton Sanchez, DO 01/31/2021 M25.511 Pain in right shoulder Douglas Sanchez, DO 01/31/2021 I48.91 Unspecified atrial fibrillation Milton Sanchez, DO 01/31/2021 Z79.01 terminal gauger (current) use of antic oagulants Milton Sanchez, DO 01/31/2021 Z79.84 terminal gauger (current) use of oral hypoglycemic drugs Milton Sanchez, DO 01/31/2021 E11.9 Type 2 diabetes mellitus without complications Milton Sanchez, DO 01/31/2021 I10 Essential (primary) hypertension Milton Sanchez, DO 01/31/2021 G47.33 Obstructive sleep apnea (adult) (pediatric) Milton Sanchez, DO 11/10/2020 E78.5 Hyperlipidemia, unspecified Aamir Goldman M.D. 11/10/2020 I48.91 Unspecified atrial fibrillation Nader Goldman M.D. 11/10/2020 Z79.01 care home (current) use of antic oagulants Nader Goldman [...] Goldman M.D. 11/10/2020 Z91.14 Patient's other noncompliance [facility] medication regimen Nader Goldman M.D. 09/08/2020 I48.91 Unspecified atrial fibrillation Nader Goldman M.D. 09/08/2020 Z79.01 terminal gauger (current) use of antic oagulants Nader Goldman M.D. 09/08/2020 Z91.14 Patient's other noncompliance [facility] medication regimen Nader Goldman M.D. 09/08/2020 E11.9 Type 2 diabetes mellitus without complications Nader Goldman M.D. 09/08/2020 K70.9 Alcoholic liver disease, unspeci fied Nadre Goldman M.D. 09/08/2020 F34.1 Dysthymic disorder Nader combs M.D. 09/08/2020 G47.33 Obstructive sleep apnea (adult) (pediatric) Nader Goldman M.D. 09/08/2020 K21.9 Gastro-esophageal reflux disease without esophagitis Nader Goldman M.D. 09/08/2020 Z85.038 Personal history of other malignant neoplasm of large intestine Nader Goldman M.D. Plan of Treatment Future Appointment(s):* 03/03/2021 11:40 am - Milton Sanchez DO at [facility] * 03/31/2021 2:30 pm - Nader Goldman M.D. at [facility] 11/10/2020 - Nader Goldman M.D.* E78.5 Hyperlipidemia, unspecified * I48.91 Unspecified atrial fibrillation * Z79.01 terminal gauger (current) use of anticoagulants * E11.9 Type [...] is anticoagulated. We will continue to monitor.3. care home (current) use of anticoagulants: Doing well with [...]
--- OUTSIDE RECORDS SUMMARY | 2021-03-14 14:09 | CCD | Continuity of Care Document ---
Author Author Dipak SANCHEZ Organization Unknown Address [address] [address] Phone [phone] Care Team Providers Care Nail Tech Name Role Phone Nader Goldman MD AUTM [phone] [facility] Radiology AUTM [phone] Problems Active Problems Provider Date Hemorrhoids Onset: [...] Tablets 1 by mouth every day 30tabs Nadre Goldman M.D. 09/01/2020 Ropinirole HCL 4mg Tablets [...] Provider Date Immunization Adminstration,1 Vaccine/Tox oid Injection aNder Goldman M.D. 020 Immunizations CPT Code Status Date Vaccine Lot # 69150 Given 01/08/2020 Pneumovax 23 [id number] Given 03/26/2012 Influenza Virus Vaccine [id number] Refused 05/13/2018 Influenza Virus Vaccine, Quadrivalent ([id number]), Derived From Cell [id number] Refused 03/26/2012 Adacel- Tetanus Diphtheria P ertussis [...] H/L Range Note Laboratory test finding 02/28/2021 [facility] [place] [address] [place] [address] [phone] Ammonia 48 uMOL/L High <32 Total Iron Binding Capacit 02/28/2021 [facility] [address] [place], [place] [id number] [phone] Iron (Fe) 52 g/dL Low 65-175 Total Iron Binding Capacity 456 g/dL High 250-450 Percent Saturation 11.4 % Low 19.7-50.0 Laboratory test finding 02/28/2021 [facility] [address] [place], [place] [id number] [phone] Ferritin 33 NG/ML Normal 26-388 Hepatitis Profile 02/28/2021 [facility] [address] [place], [place] [id number] [phone] Hepatitis C Virus Kelly Index 0.1 INDEX Normal <0.8 1 Hepatitis B Surface Antigen NEGATIVE Normal Negative Hepatitis B Core Antibody Igm NEGATIVE Normal Negative Hepatitis A Antibody Igm NEGATIVE Normal Negative Laboratory test finding 02/28/2021 [place] [id number] [place] [address] [phone] Hepatitis B Surface Antibody NEGATIVE Normal Pos itive Laboratory test finding 02/28/2021 [facility] [address] [place] [address] [phone] Hepatitis B Surface Antibody <pending> Complete Blood Count 02/28/2021 [facility] Key Ringer: Dr Martín [place] [address] [phone] WBC 9.2 x10*3/UL 4.1 - 10.9 RBC [...] 2.0 - 7.8 Comprehensive Chem Profile 02/28/2021 [facility]ethi Key Ringer: Dr Martín [place] [address] [phone] Glucose 111 mg/dL High 74 - 99 [...] mL/min >60 3 Ua Dipstick Only 02/28/2021 [facility] Key Ringer: Dr Martín Sanchez [place], [place] [id number] [phone] Urine Color YELLOW Yellow Urine Appearance CLEAR Clear Urine PH 6.0 units 5.0 - 9.0 Urine Specific [place] 1.020 1.005 - 1.030 Urine Leukocytes NEGATIVE Negative Urine Blood NEGATIVE Negative Urine Protein NEGATIVE Negative -Trace Urine Glucose NEGATIVE mg/dL Negative Urine Nitrite NEGATIVE Negative Urine Ketone NEGATIVE mg/dL Negative Urine Bilirubin NEGATIVE Negative Urine Urobilinogen 0.2 mg/dL 0.2 - 1.0 Prothrombin Time/Inr 02/28/2021 [facility] enter [address] [place] [address] [phone] Prothrombin Time 15.4 seconds High 12.7-14.5 Inr 1.18 Normal 4 Cardiac Marker Panel 02/23/2021 [facility] enter [address] [place] [address] [phone] CPK Creatine Phosphokinase 102 U/L Normal 39-30 8 CK-MB Value Mass 3.3 NG/ML Normal <3.6 MB/CK Relative Index 3.24 Normal < Or =4 5 Troponin I < 0.02 NG/ML Normal < 0.10 6 Istat Chem8+ Panel 02/23/2021 [facility]ter [address] [place] [address] [phone] iSTAT HCT 37.0 % Low 38.0-51.0 iSTAT Glucose 145 mg/dL High 70-105 iSTAT Sodium 138 mEq/L Normal 136-145 iSTAT Potassium 4.3 mEq/L Normal 3.5-5.1 iSTAT CA++ 5.2 mg/dL Normal 4.5-5.3 iSTAT Chloride 100 mEq/L Normal 98-109 iSTAT Co2 27.0 MM/L Normal 23.0-27.0 iSTAT BUN 20 mg/dL Normal 8-26 iSTAT Creatinine 0.8 mg/dL Normal 0.6-1.3 Laboratory test finding 02/23/[address] [address] [phone] iSTAT Troponin 0.00 NG/ML Normal 0.00-0.08 Laboratory test finding 02/23/[address] [address] [phone] NT-Pro BNP 303 pg/mL High <125 Lipase 249 U/L Normal 73-393 Thyroid Stimulating Hormone 1.080 uIU/ML Normal 0.358-3.740 Free T4 1.07 ng/dL Normal 0.76-1.46 Liver Profile 02/23/2021 [facility] nter [address] [place] [address] [phone] Ast/Sgot 24 U/L Normal 7-37 Alt/SGPT 32 U/L Normal 12-78 Alkaline Phosphatase 67 U/L Normal 45-117 Bilirubin,Total 0.9 mg/dL Normal 0.2-1.0 Bilirubin,Direct 0.3 mg/dL High 0.0-0.2 Total Protein 7.2 GM/DL Normal 6.4-8.2 Albumin 3.1 GM/DL Low 3.2-5.2 Albumin/Globulin Ratio 0.8 Normal CBC With Differential 02/23/[address] [address] [phone] White Blood Count 10.8 10 High 4.0-10.0 [...] 36.0-66.0 Lymph % 19.9 % Low 24.0-44.0 [place] % 9.5 % High 2.0-8.0 Eos % 2.3 % Normal 0.0-3.0 Baso % 1.1 % High 0.0-1.0 Immature Granulocyte % 0.4 % Normal 0-3.0 Nucleated Red Blood Cell % 0.0 % Normal 0-0 Neutrophils # 7.2 10 Normal 1.5-8.5 Lymph # 2.1 10 Normal 1.5-5.0 [place] # 1.0 10 High 0.0-0.8 Eos # 0.3 10 Normal 0.0-0.5 Baso # 0.1 10 Normal 0.0-0.2 Influenza A/B RSV Covid Amp 02/23/[address] [address] [phone] Influenza A Amplification NEGATIVE Normal Negati ve 7 Influenza B Amplification NEGATIVE Normal Negative 8 RSV Amplification NEGATIVE Normal Negative 9 Sars Covid-19 Amplification NEGATIVE Normal Negative 10 Laboratory test finding 02/23/[address] [address] [phone] iSTAT Troponin 0.00 NG/ML Normal 0.00-0.08 Laboratory test finding 02/23/[address] [address] [phone] iSTAT Troponin 0.01 NG/ML Normal 0.00-0.08 A1c 01/31/2021 [facility] Key Ringer: Dr Martín [place] [address] [phone] Hba1c 6.9 % High <5.7 11 Est Avg Glucose 151 mg/dL High 60 - 110 Laboratory test finding 01/31/2021 [facility] Key Ringer: Dr Martín [place] [address] [phone] Magnesium 1.6 mg/dL Low 1.8 - 2.4 Comprehensive Chem Profile 01/31/2021 [facility]eth[facility] Key Ringer: Dr Martín [place] [address] [phone] Glucose 75 mg/dL 74 - 99 12 [...] mL/min >60 13 Complete Blood Count 11/10/2020 [facility] shuk[facility] gordon Key Ringer: Dr Martín [place] [address] [phone] WBC 9.0 x10*3/UL 4.1 - 10.9 RBC [...] 6.6 x10*3/UL 2.0 - 7.8 A1c 11/10/2020 [facility] Key Ringer: Dr Martín [place] [address] [phone] Hba1c 6.7 % High <5.7 14 Est Avg Glucose 146 mg/dL High 60 - 110 Comprehensive Chem Profile 11/10/2020 [facility] Key Ringer: Dr Martín [place] [address] [phone] Glucose 104 mg/dL High 74 - 99 [...] mL/min >60 16 Complete Blood Count 09/08/2020 [facility] Key Ringer: Dr Martín [place] [address] [phone] WBC 10.3 x10*3/UL 4.1 - 10.9 RBC [...] 7.4 x10*3/UL 2.0 - 7.8 A1c 09/08/2020 [facility] Key Ringer: Dr Martín Sanchez [place], [place] [address] [phone] Hba1c 6.7 % High <5.7 17 Est Avg Glucose 146 mg/dL High 60 - 110 Comprehensive Chem Profile 09/08/2020 [facility] Key Ringer: Dr Martín [place] [address] [phone] Glucose 113 mg/dL High 74 - 99 [...] LITTLE GFR LEFT ESRD GFR <15 ON UPHOLSTERER OUTSIDE 4 THERAPUTIC HUMAN INR VALUES INDICATIONS NORMAL [...] 6 Troponin I Reference Interva l for [employer] LOCI: 99th Percentile= 0.00-0.045 ng/ml Risk Stratification: [...] pathogens. DISCLAIMER: Testing was performed using the [employer] SARS-CoV-2 test. This test was developed and its performance characteristics determined by [employer]. This test has not been FDA cleared [...] LITTLE GFR LEFT ESRD GFR <15 ON UPHOLSTERER OUTSIDE 14 Lab Result Notes: Pre-Diabetes 5.7 - [...] LITTLE GFR LEFT ESRD GFR <15 ON UPHOLSTERER OUTSIDE 17 Lab Result Notes: Pre-Diabetes 5.7 - [...] LITTLE GFR LEFT ESRD GFR <15 ON UPHOLSTERER OUTSIDE Procedures Date Code Description Status 02/28/2021 34248 Office/Outpatient Established Mo d MDM 30-39 Min Completed 01/31/2021 91675 Office/Outpatient Established Mo d MDM 30-39 Min Completed 01/31/2021 14057 EKG/Interpretation & Report Comp leted 11/10/2020 14585 Office/Outpatient Established Mo d MDM 30-39 Min Completed 11/09/2020 [id number] Colonoscopy Completed 09/08/2020 90630 [facility] SRV W/I 14D Of DC, Co mm W/I 2 Dys Med Rec Completed 01/21/2019 [id number] Colonoscopy Completed 12/10/2018 [id number] Colonoscopy Completed 11/13/2018 [id number] Diabetic Retinal Eye Exam [facility] 06/22/2015 [id number] Diabetic Retinal Eye Exam [facility] Medical Devices Description No Information Available Encounters Type Date Location Provider Dx Diagnosis Office Visit 02/28/2021 10:40a [facility] DO G93.40 Encephalopathy, unspecified G47.01 Insomnia due to medical cond ition K70.30 Alcoholic cirrhosis of liver without ascites R60.9 Edema, unspecified I48.91 Unspecified atrial fibrillat ion Z79.01 [facility] (current) use of a nticoagulants D64.9 Anemia, unspecified I10 Essential (primary) hyperten margie Office Visit 01/31/2021 1:40p [facility] Sanchez DO Z01.810 Encounter for preprocedural cardiovascular examination M25.511 Pain in right shoulder I48.91 Unspecified atrial fibrillat ion Z79.01 [facility] (current) use of a nticoagulants Z79.84 [employer] (current) use of o ral hypoglycemic drugs E11.9 Type 2 diabetes mellitus wit hout complications I10 Essential (primary) hyperten margie G47.33 Obstructive sleep apnea (nancy lt) (pediatric) Office Visit 11/10/2020 11:30a [facility] PKaren Goldman M.D. 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.01 [employer] (current) use of a nticoagulants E11.9 Type [...] with medication regimen Office Visit 09/08/2020 10:00a [facility]an Goldman M.D. I48.91 Unspecified atrial fibrillation Z79.01 [...] to medical conditio n Milton Sanchez, DO 02/28/2021 K70.30 Alcoholic cirrhosis of liver wit hout ascites Milton Sanchez, DO 02/28/2021 R60.9 Edema, unspecified Milton verma, DO 02/28/2021 I48.91 Unspecified atrial fibrillation Milton Sanchez, DO 02/28/2021 Z79.01 [facility] (current) use of antic oagulants Milton Sanchez, DO 02/28/2021 D64.9 Anemia, unspecified Milton Sanchez, DO 02/28/2021 I10 Essential (primary) hypertension Milton Sanchez, DO 01/31/2021 Z01.810 Encounter for preprocedural card iovascular examination Milton Sanchez, DO 01/31/2021 M25.511 Pain in right shoulder Douglas Sanchez, DO 01/31/2021 I48.91 Unspecified atrial fibrillation Milton Sanchez, DO 01/31/2021 Z79.01 [employer] (current) use of antic oagulants Milton Sanchez, DO 01/31/2021 Z79.84 [employer] (current) use of oral hypoglycemic drugs Milton Sanchez, DO 01/31/2021 E11.9 Type 2 diabetes mellitus without complications Milton Sanchez, DO 01/31/2021 I10 Essential (primary) hypertension Milton Sanchez, DO 01/31/2021 G47.33 Obstructive sleep apnea (adult) (pediatric) Milton Dooleylogg, 11/10/2020 E78.5 Hyperlipidemia, unspecified Aamir Goldman M.D. 11/10/2020 I48.91 Unspecified atrial fibrillation Nader Goldman M.D. 11/10/2020 Z79.01 [employer] (current) use of antic oagulants Nader Goldman [...] atrial fibrillation Nader Goldman M.D. 09/08/2020 Z79.01 [employer] (current) use of antic oagulants Nader Goldman [...] 11:40 am - Milton Sanchez DO at [facility] * 03/31/2021 2:30 pm - Nader Goldman M.D. at [facility] 11/10/2020 - Nader Goldman M.D.* E78.5 Hyperlipidemia, unspecified * I48.91 Unspecified atrial fibrillation * Z79.01 [employer] (current) use of anticoagulants * E11.9 Type [...] is anticoagulated. We will continue to monitor.3. [facility] (current) use of anticoagulants: Doing well with [...]
--- OUTSIDE RECORDS SUMMARY | 2021-03-14 14:09 | CCD | Continuity of Care Document ---
Author Organization Unknown Address Unknown Phone Unavailable Care Team Providers Care Fuel Agent Name Role Phone Nader Goldman MD AUTM [phone] [facility] Radiology AUTM [phone] Problems Active Problems Provider Date Hemorrhoids Onset: [...] 2 to 3 soft stools/day 600ml Milton Montanez DO 03/01/2021 Furosemide 40mg Tablets 1 by mouth every day 30tabs Milton Montanez DO 02/29/20 21 Metoprolol Tartrate 25mg Tablets 3 tabs by mouth twice a day 180tabs Milton Montanez DO 2020 Atorvastatin Calcium 20mg Tablets 1 [...] as Needed For Cough 60caps R05 Martín Montanez MD 08/18/2019 Cetirizine HCL 10mg Tablets one tab by mouth daily at bed time (only as needed) 30tabs J30.9 Martín Montanez MD 01/17/2018 Lancet Device With Ejector Misc use as directed 1units Nader Goldman M.D. 06/20/2015 Lancets 30G 30G Misc [...] 1 time per day, for 90 days 90tajanusz Goldman M.D. Eliquis 5mg Tablets take one tablet by mouth twice a day 180tajanusz Goldman M.D. 0 Medications Administered in Office Medication SIG Qnty Indications Ordering Provider Date Immunization Adminstration,1 Vaccine/Tox oid Injection Nader Goldman M.D. 020 Immunizations CPT Code Status Date Vaccine Lot # [id number] Given 01/08/2020 Pneumovax 23 [id number] Given 03/26/2012 Influenza Virus Vaccine [id number] Refused 05/13/2018 Influenza Virus Vaccine, Quadrivalent ([id number]), Derived From Cell [id number] Refused 03/26/2012 Adacel- Tetanus Diphtheria P ertussis [...] H/L Range Note Laboratory test finding 02/28/2021 [facility] [address] [place] [address] [phone] Ammonia 48 uMOL/L High <32 Total Iron Binding Capacit 02/28/[address] [address] [phone] Iron (Fe) 52 g/dL Low 65-175 Total Iron Binding Capacity 456 g/dL High 250-450 Percent Saturation 11.4 % Low 19.7-50.0 Laboratory test finding 02/28/2021 [facility] [address] [place] [address] [phone] Ferritin 33 NG/ML Normal 26-388 Hepatitis Profile 02/28/2021 [facility]ter [address] [place] [address] [phone] Hepatitis C Virus Kelly Index 0.1 INDEX Normal <0.8 1 Hepatitis B Surface Antigen NEGATIVE Normal Negative Hepatitis B Core Antibody Igm NEGATIVE Normal Negative Hepatitis A Antibody Igm NEGATIVE Normal Negative Laboratory test finding 02/28/[address] [address] [phone] Hepatitis B Surface Antibody NEGATIVE Normal Pos itive Laboratory test finding 02/28/2021 [facility] [address] [place] [address] [phone] Hepatitis B Surface Antibody <pending> Complete Blood Count 02/28/2021 [facility] [employer] shukri gordon Entry Level Software Engineer: Dr Martín Montanez [place], [place] [id number] [phone] WBC 9.2 x10*3/UL 4.1 - 10.9 RBC [...] 2.0 - 7.8 Comprehensive Chem Profile 02/28/2021 [facility] shukri Newsome Entry Level Software Engineer: Dr Martín Montanez [place], [place] [id number] [phone] Glucose 111 mg/dL High 74 - 99 [...] mL/min >60 3 Ua Dipstick Only 02/28/2021 [facility] Entry Level Software Engineer: Dr Martín Montanez [place] [id number] [phone] Urine Color YELLOW Yellow Urine Appearance CLEAR Clear Urine PH 6.0 units 5.0 - 9.0 Urine Specific Sawyer 1.020 1.005 - 1.030 Urine Leukocytes NEGATIVE Negative Urine Blood NEGATIVE Negative Urine Protein NEGATIVE Negative -Trace Urine Glucose NEGATIVE mg/dL Negative Urine Nitrite NEGATIVE Negative Urine Ketone NEGATIVE mg/dL Negative Urine Bilirubin NEGATIVE Negative Urine Urobilinogen 0.2 mg/dL 0.2 - 1.0 Prothrombin Time/Inr 02/28/2021 [facility] enter [address] [place] [address] [phone] Prothrombin Time 15.4 seconds High 12.7-14.5 Inr 1.18 Normal 4 Cardiac Marker Panel 02/23/2021 [facility] [address] [place] [address] [phone] CPK Creatine Phosphokinase 102 U/L Normal 39-30 8 CK-MB Value Mass 3.3 NG/ML Normal <3.6 MB/CK Relative Index 3.24 Normal < Or =4 5 Troponin I < 0.02 NG/ML Normal < 0.10 6 Istat Chem8+ Panel 02/23/2021 [facility] nter [address] [place] [address] [phone] iSTAT HCT 37.0 % Low 38.0-51.0 iSTAT Glucose 145 mg/dL High 70-105 iSTAT Sodium 138 mEq/L Normal 136-145 iSTAT Potassium 4.3 mEq/L Normal 3.5-5.1 iSTAT CA++ 5.2 mg/dL Normal 4.5-5.3 iSTAT Chloride 100 mEq/L Normal 98-109 iSTAT Co2 27.0 MM/L Normal 23.0-27.0 iSTAT BUN 20 mg/dL Normal 8-26 iSTAT Creatinine 0.8 mg/dL Normal 0.6-1.3 Laboratory test finding 02/23/2021 [facility] [address] [place] [address] [phone] iSTAT Troponin 0.00 NG/ML Normal 0.00-0.08 Laboratory test finding 02/23/2021 [facility] [address] [place] [address] [phone] NT-Pro BNP 303 pg/mL High <125 Lipase 249 U/L Normal 73-393 Thyroid Stimulating Hormone 1.080 uIU/ML Normal 0.358-3.740 Free T4 1.07 ng/dL Normal 0.76-1.46 Liver Profile 02/23/2021 [facility] nter [address] [place] [address] [phone] Ast/Sgot 24 U/L Normal 7-37 Alt/SGPT 32 U/L Normal 12-78 Alkaline Phosphatase 67 U/L Normal 45-117 Bilirubin,Total 0.9 mg/dL Normal 0.2-1.0 Bilirubin,Direct 0.3 mg/dL High 0.0-0.2 Total Protein 7.2 GM/DL Normal 6.4-8.2 Albumin 3.1 GM/DL Low 3.2-5.2 Albumin/Globulin Ratio 0.8 Normal CBC With Differential 02/23/[address] [address] [phone] White Blood Count 10.8 10 High 4.0-10.0 [...] 36.0-66.0 Lymph % 19.9 % Low 24.0-44.0 [place] % 9.5 % High 2.0-8.0 Eos % 2.3 % Normal 0.0-3.0 Baso % 1.1 % High 0.0-1.0 Immature Granulocyte % 0.4 % Normal 0-3.0 Nucleated Red Blood Cell % 0.0 % Normal 0-0 Neutrophils # 7.2 10 Normal 1.5-8.5 Lymph # 2.1 10 Normal 1.5-5.0 [place] # 1.0 10 High 0.0-0.8 Eos # 0.3 10 Normal 0.0-0.5 Baso # 0.1 10 Normal 0.0-0.2 Influenza A/B RSV Covid Amp 02/23/2021 [place] [address] [phone] Influenza A Amplification NEGATIVE Normal Negati ve 7 Influenza B Amplification NEGATIVE Normal Negative 8 RSV Amplification NEGATIVE Normal Negative 9 Sars Covid-19 Amplification NEGATIVE Normal Negative 10 Laboratory test finding 02/23/[address] [address] [phone] iSTAT Troponin 0.00 NG/ML Normal 0.00-0.08 Laboratory test finding 02/23/2021 [place] [id number] [phone] iSTAT Troponin 0.01 NG/ML Normal 0.00-0.08 A1c 01/31/2021 [facility] Entry Level Software Engineer: Dr Martín Montanez [place] [id number] [phone] Hba1c 6.9 % High <5.7 11 Est Avg Glucose 151 mg/dL High 60 - 110 Laboratory test finding 01/31/2021 [facility] Entry Level Software Engineer: Dr [place]ín [place] [address] [phone] Magnesium 1.6 mg/dL Low 1.8 - 2.4 Comprehensive Chem Profile 01/31/2021 [facility] Entry Level Software Engineer: Dr [place]ín [place] [address] [phone] Glucose 75 mg/dL 74 - 99 12 [...] mL/min >60 13 Complete Blood Count 11/10/2020 [facility] [employer] [facility] Entry Level Software Engineer: Dr Martín Montanez [place], [place] [id number] [phone] WBC 9.0 x10*3/UL 4.1 - 10.9 RBC [...] 6.6 x10*3/UL 2.0 - 7.8 A1c 11/10/2020 [facility] Entry Level Software Engineer: Dr Resendiz [place], [place] [id number] [phone] Hba1c 6.7 % High <5.7 14 Est Avg Glucose 146 mg/dL High 60 - 110 Comprehensive Chem Profile 11/10/2020 [facility] shukri Newsome Entry Level Software Engineer: Dr Martín Montanez [place], [place] [id number] [phone] Glucose 104 mg/dL High 74 - 99 [...] mL/min >60 16 Complete Blood Count 09/08/2020 [facility] [employer] shukri gordon Entry Level Software Engineer: Dr Martín [place] [address] [phone] WBC 10.3 x10*3/UL 4.1 - 10.9 RBC [...] 7.4 x10*3/UL 2.0 - 7.8 A1c 09/08/2020 [facility] , Entry Level Software Engineer: Dr Martín Montanez [place], [place] [id number] [phone] Hba1c 6.7 % High <5.7 17 Est Avg Glucose 146 mg/dL High 60 - 110 Comprehensive Chem Profile 09/08/2020 [facility] Entry Level Software Engineer: Dr Martín Dooleylogg [place], [place] [id number] [phone] Glucose 113 mg/dL High 74 - 99 [...] LITTLE GFR LEFT ESRD GFR <15 ON COMPUTER GAME PROGRAMMER 4 THERAPUTIC HUMAN INR VALUES INDICATIONS NORMAL [...] 6 Troponin I Reference Interva l for Collective LOCI: 99th Percentile= 0.00-0.045 ng/ml Risk Stratification: [...] pathogens. DISCLAIMER: Testing was performed using the [employer] SARS-CoV-2 test. This test was developed and its performance characteristics determined by [employer]. This test has not been FDA cleared [...] LITTLE GFR LEFT ESRD GFR <15 ON COMPUTER GAME PROGRAMMER 14 Lab Result Notes: Pre-Diabetes 5.7 - [...] LITTLE GFR LEFT ESRD GFR <15 ON COMPUTER GAME PROGRAMMER 17 Lab Result Notes: Pre-Diabetes 5.7 - [...] LITTLE GFR LEFT ESRD GFR <15 ON COMPUTER GAME PROGRAMMER Procedures Date Code Description Status 02/28/2021 78736 Office/Outpatient Established Mo d MDM 30-39 Min Completed 01/31/2021 69683 Office/Outpatient Established Mo d MDM 30-39 Min Completed 01/31/2021 05382 EKG/Interpretation & Report Comp leted 11/10/2020 46730 Office/Outpatient Established Mo d MDM 30-39 Min Completed 11/09/2020 [id number] Colonoscopy Completed 09/08/2020 12456 Trans Care SRV W/I 14D Of Shahrzad BYNUM mm W/I 2 Dys Med Rec Completed 01/21/2019 [id number] Colonoscopy Completed 12/10/2018 [id number] Colonoscopy Completed 11/13/2018 [id number] Diabetic Retinal Eye Exam Comple nory 06/22/2015 [id number] Diabetic Retinal Eye Exam Comple Guidefitter Description No Information Available Encounters Type Date Location Provider Dx Diagnosis Office Visit 02/28/2021 10:40a [facility] bush DO G93.40 Encephalopathy, unspecified G47.01 Insomnia due to medical cond ition K70.30 Alcoholic cirrhosis of liver without ascites R60.9 Edema, unspecified I48.91 Unspecified atrial fibrillat ion Z79.01 [facility] (current) use of a nticoagulants D64.9 Anemia, unspecified I10 Essential (primary) hyperten margie Office Visit 01/31/2021 1:40p [facility] Mimi Tabor DO Z01.810 Encounter for preprocedural cardiovascular examination M25.511 Pain in right shoulder I48.91 Unspecified atrial fibrillat ion 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.01 [facility] (current) use of a nticoagulants E11.9 Type [...] with medication regimen Office Visit 09/08/2020 10:00a [facility] Mimi Tabor M.D. 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 Z91.14 Patient's [...] Provider 02/28/2021 G93.40 Encephalopathy, unspecified Chri tona Montanez, DO 02/28/2021 G47.01 Insomnia due to medical conditio n Milton Montanez, DO 02/28/2021 K70.30 Alcoholic cirrhosis of liver wit hout ascites Milton Montanez, DO 02/28/2021 R60.9 Edema, unspecified Milton verma, DO 02/28/2021 I48.91 Unspecified atrial fibrillation Milton Montanez, DO 02/28/2021 Z79.01 [facility] (current) use of antic oagulants Milton Montanez, DO 02/28/2021 D64.9 Anemia, unspecified Milton Montanez, DO 02/28/2021 I10 Essential (primary) hypertension Milton Montanez, DO 01/31/2021 Z01.810 Encounter for preprocedural card iovascular examination Milton Montanez, DO 01/31/2021 M25.511 Pain in right shoulder Douglas Montanez, DO 01/31/2021 I48.91 Unspecified atrial fibrillation Milton Montanez, DO 01/31/2021 Z79.01 [facility] (current) use of antic oagulants Milton Montanez, DO 01/31/2021 Z79.84 [facility] (current) use of oral hypoglycemic drugs Milton Montanez, DO 01/31/2021 E11.9 Type 2 diabetes mellitus without complications Milton Montanez, DO 01/31/2021 I10 Essential (primary) hypertension Milton Montanez, DO 01/31/2021 G47.33 Obstructive sleep apnea (adult) (pediatric) Milton Montanez, DO 11/10/2020 E78.5 Hyperlipidemia, unspecified Aamir Goldman M.D. 11/10/2020 I48.91 Unspecified atrial fibrillation Nader Goldman M.D. 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 11/10/2020 Z91.14 Patient's other noncompliance [facility] medication regimen Nader Goldman M.D. 09/08/2020 I48.91 Unspecified atrial fibrillation Nader Goldman M.D. 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 09/08/2020 Z91.14 Patient's other noncompliance [facility] medication regimen Nader Goldman M.D. 09/08/2020 E11.9 [...] Future Appointment(s):* 03/03/2021 11:40 am - Milton Montanez, at [facility] * 03/31/2021 2:30 pm - [facility] 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 We will continue to monitor.3. food service cashier (current) use of anticoagulants: Doing well with [...]
--- OUTSIDE RECORDS SUMMARY | 2021-03-14 14:09 | CCD | Continuity of Care Document ---
Author Author Dipak GOLDMAN M.D. Organization Unknown Address [address] [address] Phone [phone] Care Team Providers Care Triple Air Valve Tester Name Role Phone Nader Goldman MD AUTM [phone] [facility] Radiology AUTM [phone] Problems Active Problems Provider Date Hemorrhoids Onset: [...] 1 by mouth every day 30tabs Milton Montanez, 02/29/20 21 Metoprolol Tartrate 25mg Tablets 3 tabs by mouth twice a day 180tabs Milton Montanez, 2020 Atorvastatin Calcium 20mg Tablets 1 by [...] CPT Code Status Date Vaccine Lot # [id number] Given 01/08/2020 Pneumovax 23 [id number] Given 03/26/2012 Influenza Virus Vaccine [id number] Refused 05/13/2018 Influenza Virus Vaccine, Quadrivalent ([id number]), Derived From Cell [id number] Refused 03/26/2012 Adacel- Tetanus Diphtheria P ertussis [...] H/L Range Note Laboratory test finding 02/28/2021 [facility] [place] [address] [place] [address] [phone] Ammonia 48 uMOL/L High <32 Total Iron Binding Capacit 02/28/2021 [facility] [address] [place] [address] [phone] Iron (Fe) 52 g/dL Low 65-175 Total Iron Binding Capacity 456 g/dL High 250-450 Percent Saturation 11.4 % Low 19.7-50.0 Laboratory test finding 02/28/2021 [facility] [address] [place], [place] [id number] [phone] Ferritin 33 NG/ML Normal 26-388 Hepatitis Profile 02/28/2021 [facility] [address] [place], [place] [id number] [phone] Hepatitis C Virus Kelly Index 0.1 INDEX Normal <0.8 1 Hepatitis B Surface Antigen NEGATIVE Normal Negative Hepatitis B Core Antibody Igm NEGATIVE Normal Negative Hepatitis A Antibody Igm NEGATIVE Normal Negative Laboratory test finding 02/28/2021 [facility] [address] [place] [address] [phone] Hepatitis B Surface Antibody NEGATIVE Normal Pos itive Laboratory test finding 02/28/2021 [facility] [address] [place] [address] [phone] Hepatitis B Surface Antibody <pending> Complete Blood Count 02/28/2021 [place] [employer] [facility] shuk[facility] gordon Autom[employer] Sales Representative: Dr [place]ín [place] [address] [phone] WBC 9.2 x10*3/UL 4.1 - 10.9 RBC [...] 2.0 - 7.8 Comprehensive Chem Profile 02/28/2021 [place] [facility] [employer] Sales Representative: Dr Martín [place] [address] [phone] Glucose 111 mg/dL High 74 - 99 [...] mL/min >60 3 Ua Dipstick Only 02/28/2021 [facility] Autom[employer] Sales Representative: Dr Martín Montanez [place], [place] [id number] [phone] Urine Color YELLOW Yellow Urine Appearance CLEAR Clear Urine PH 6.0 units 5.0 - 9.0 Urine Specific Atkins 1.020 1.005 - 1.030 Urine Leukocytes NEGATIVE Negative Urine Blood NEGATIVE Negative Urine Protein NEGATIVE Negative -Trace Urine Glucose NEGATIVE mg/dL Negative Urine Nitrite NEGATIVE Negative Urine Ketone NEGATIVE mg/dL Negative Urine Bilirubin NEGATIVE Negative Urine Urobilinogen 0.2 mg/dL 0.2 - 1.0 Prothrombin Time/Inr 02/28/2021 [facility] [address] [place] [address] [phone] Prothrombin Time 15.4 seconds High 12.7-14.5 Inr 1.18 Normal 4 Cardiac Marker Panel 02/23/2021 [facility] [address] [place] [address] [phone] CPK Creatine Phosphokinase 102 U/L Normal 39-30 8 CK-MB Value Mass 3.3 NG/ML Normal <3.6 MB/CK Relative Index 3.24 Normal < Or =4 5 Troponin I < 0.02 NG/ML Normal < 0.10 6 Istat Chem8+ Panel 02/23/2021 [facility] [address] [place] [address] [phone] iSTAT HCT 37.0 % Low 38.0-51.0 iSTAT Glucose 145 mg/dL High 70-105 iSTAT Sodium 138 mEq/L Normal 136-145 iSTAT Potassium 4.3 mEq/L Normal 3.5-5.1 iSTAT CA++ 5.2 mg/dL Normal 4.5-5.3 iSTAT Chloride 100 mEq/L Normal 98-109 iSTAT Co2 27.0 MM/L Normal 23.0-27.0 iSTAT BUN 20 mg/dL Normal 8-26 iSTAT Creatinine 0.8 mg/dL Normal 0.6-1.3 Laboratory test finding 02/23/[address] [address] [phone] iSTAT Troponin 0.00 NG/ML Normal 0.00-0.08 Laboratory test finding 02/23/[address] [address] [phone] NT-Pro BNP 303 pg/mL High <125 Lipase 249 U/L Normal 73-393 Thyroid Stimulating Hormone 1.080 uIU/ML Normal 0.358-3.740 Free T4 1.07 ng/dL Normal 0.76-1.46 Liver Profile 02/23/2021 [facility] [address] [place] [address] [phone] Ast/Sgot 24 U/L Normal 7-37 Alt/SGPT 32 U/L Normal 12-78 Alkaline Phosphatase 67 U/L Normal 45-117 Bilirubin,Total 0.9 mg/dL Normal 0.2-1.0 Bilirubin,Direct 0.3 mg/dL High 0.0-0.2 Total Protein 7.2 GM/DL Normal 6.4-8.2 Albumin 3.1 GM/DL Low 3.2-5.2 Albumin/Globulin Ratio 0.8 Normal CBC With Differential 02/23/[address] [address] [phone] White Blood Count 10.8 10 High 4.0-10.0 [...] 36.0-66.0 Lymph % 19.9 % Low 24.0-44.0 Sutter % 9.5 % High 2.0-8.0 Eos % 2.3 % Normal 0.0-3.0 Baso % 1.1 % High 0.0-1.0 Immature Granulocyte % 0.4 % Normal 0-3.0 Nucleated Red Blood Cell % 0.0 % Normal 0-0 Neutrophils # 7.2 10 Normal 1.5-8.5 Lymph # 2.1 10 Normal 1.5-5.0 Sutter # 1.0 10 High 0.0-0.8 Eos # 0.3 10 Normal 0.0-0.5 Baso # 0.1 10 Normal 0.0-0.2 Influenza A/B RSV Covid Amp 02/23/[address] [address] [phone] Influenza A Amplification NEGATIVE Normal Negati ve 7 Influenza B Amplification NEGATIVE Normal Negative 8 RSV Amplification NEGATIVE Normal Negative 9 Sars Covid-19 Amplification NEGATIVE Normal Negative 10 Laboratory test finding 02/23/2021 [facility] [address] [place] [address] [phone] iSTAT Troponin 0.00 NG/ML Normal 0.00-0.08 Laboratory test finding 02/23/[address] [address] [phone] iSTAT Troponin 0.01 NG/ML Normal 0.00-0.08 A1c 01/31/2021 [facility] Automotive Sales Representative: Dr Martín [place] [address] [phone] Hba1c 6.9 % High <5.7 11 Est Avg Glucose 151 mg/dL High 60 - 110 Laboratory test finding 01/31/2021 [place] [facility] Automotive Sales Representative: [place]ín [place] [address] [phone] Magnesium 1.6 mg/dL Low 1.8 - 2.4 Comprehensive Chem Profile 01/31/2021 [place] [facility]ethi Autom[employer] Sales Representative: Dr [place]ín [place] [address] [phone] Glucose 75 mg/dL 74 - 99 12 [...] mL/min >60 13 Complete Blood Count 11/10/2020 [place] [employer] [facility] shukri gordon Autom[employer] Sales Representative: Dr [place]ín [place] [address] [phone] WBC 9.0 x10*3/UL 4.1 - 10.9 RBC [...] 6.6 x10*3/UL 2.0 - 7.8 A1c 11/10/2020 [facility] Automotive Sales Representative: Dr [place]ín [place] [address] [phone] Hba1c 6.7 % High <5.7 14 Est Avg Glucose 146 mg/dL High 60 - 110 Comprehensive Chem Profile 11/10/2020 [facility] Autom[employer] Sales Representative: Dr Martín [place] [address] [phone] Glucose 104 mg/dL High 74 - 99 [...] mL/min >60 16 Complete Blood Count 09/08/2020 [facility] [place] [facility] Autom[employer] Sales Representative: Dr [place]ín [place] [address] [phone] WBC 10.3 x10*3/UL 4.1 - 10.9 RBC [...] 7.4 x10*3/UL 2.0 - 7.8 A1c 09/08/2020 [facility] Autom[employer] Sales Representative: Dr [place]ín [place] [address] [phone] Hba1c 6.7 % High <5.7 17 Est Avg Glucose 146 mg/dL High 60 - 110 Comprehensive Chem Profile 09/08/2020 [facility] Autom[employer] Sales Representative: Dr Martín [place] [address] [phone] Glucose 113 mg/dL High 74 - 99 [...] LITTLE GFR LEFT ESRD GFR <15 ON HUMAN RESOURCE ADVISOR 4 THERAPUTIC HUMAN INR VALUES INDICATIONS NORMAL [...] 6 Troponin I Reference Interva l for [employer] LOCI: 99th Percentile= 0.00-0.045 ng/ml Risk Stratification: [...] pathogens. DISCLAIMER: Testing was performed using the [employer] SARS-CoV-2 test. This test was developed and its performance characteristics determined by [employer]. This test has not been FDA cleared [...] LITTLE GFR LEFT ESRD GFR <15 ON HUMAN RESOURCE ADVISOR 14 Lab Result Notes: Pre-Diabetes 5.7 - [...] LITTLE GFR LEFT ESRD GFR <15 ON HUMAN RESOURCE ADVISOR 17 Lab Result Notes: Pre-Diabetes 5.7 - [...] LITTLE GFR LEFT ESRD GFR <15 ON HUMAN RESOURCE ADVISOR Procedures Date Code Description Status 02/28/2021 66941 Office/Outpatient Established Mo d MDM 30-39 Min Completed 01/31/2021 73709 Office/Outpatient Established Mo d MDM 30-39 Min Completed 01/31/2021 37350 EKG/Interpretation & Report Comp leted 11/10/2020 92463 Office/Outpatient Established Mo d MDM 30-39 Min Completed 11/09/2020 [id number] Colonoscopy Completed 09/08/2020 47782 Trans Care SRV W/I 14D Of DC, Co mm W/I 2 Dys Med Rec Completed 01/21/2019 [id number] Colonoscopy Completed 12/10/2018 [id number] Colonoscopy Completed 11/13/2018 [id number] Diabetic Retinal Eye Exam Comple nory 06/22/2015 [id number] Diabetic Retinal Eye Exam Comple [facility] Medical Devices Description No Information Available Encounters Type Date Location Provider Dx Diagnosis Office Visit 02/28/2021 10:40a [place] [facility] Montane[facility] DO G93.40 Encephalopathy, unspecified G47.01 Insomnia due to medical cond ition K70.30 Alcoholic cirrhosis of liver without ascites R60.9 Edema, unspecified I48.91 Unspecified atrial fibrillat ion Z79.01 terminologist (current) use of a nticoagulants D64.9 Anemia, unspecified I10 Essential (primary) hyperten margie Office Visit 01/31/2021 1:40p [place] [facility] Montanez DO Z01.810 Encounter for preprocedural cardiovascular examination M25.511 Pain in right shoulder I48.91 Unspecified atrial fibrillat ion Z79.01 terminologist (current) use of a nticoagulants Z79.84 shelter (current) use of o ral hypoglycemic drugs E11.9 Type 2 diabetes mellitus wit hout complications I10 Essential (primary) hyperten margie G47.33 Obstructive sleep apnea (nancy lt) (pediatric) Office Visit 11/10/2020 11:30a [place] [facility] PKaren Goldman M.D. 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.01 terminologist (current) use of a nticoagulants E11.9 Type [...] with medication regimen Office Visit 09/08/2020 10:00a [place] [facility] PKaren Goldman M.D. I48.91 Unspecified atrial fibrillation Z79.01 shelter (current) use of a nticoagulants Z91.14 Patient's [...] atrial fibrillation Milton Montanez, DO 02/28/2021 Z79.01 terminologist (current) use of antic oagulants Milton Montanez, DO 02/28/2021 D64.9 Anemia, unspecified Milton Montanez, DO 02/28/2021 I10 Essential (primary) hypertension Milton Montanez, DO 01/31/2021 Z01.810 Encounter for preprocedural card iovascular examination Milton Montanez, DO 01/31/2021 M25.511 Pain in right shoulder Douglas Montanez, DO 01/31/2021 I48.91 Unspecified atrial fibrillation Milton Montanez, DO 01/31/2021 Z79.01 terminologist (current) use of antic oagulants Milton Montanez, DO 01/31/2021 Z79.84 shelter (current) use of oral hypoglycemic drugs Milton Montanez, DO 01/31/2021 E11.9 Type 2 diabetes mellitus without complications Milton Montanez, DO 01/31/2021 I10 Essential (primary) hypertension Milton Montanez, DO 01/31/2021 G47.33 Obstructive sleep apnea (adult) (pediatric) Shaileshluna Dooleylogg, 11/10/2020 E78.5 Hyperlipidemia, unspecified Aamir Goldman M.D. 11/10/2020 I48.91 Unspecified atrial fibrillation Nader Goldman M.D. 11/10/2020 Z79.01 shelter (current) use of antic oagulants Nader Goldman [...] atrial fibrillation Nader Goldman M.D. 09/08/2020 Z79.01 shelter (current) use of antic oagulants Nader Goldman [...] Future Appointment(s):* 03/03/2021 11:40 am - Milton Montaenz DO at [facility] * 03/31/2021 2:30 pm - Nader Goldman M.D. at [facility] 11/10/2020 - Nader Goldman M.D.* E78.5 Hyperlipidemia, unspecified * I48.91 Unspecified atrial fibrillation * Z79.01 shelter (current) use of anticoagulants * E11.9 Type [...] is anticoagulated. We will continue to monitor.3. terminologist (current) use of anticoagulants: Doing well with [...]
--- OUTSIDE RECORDS SUMMARY | 2021-03-14 14:09 | CCD | Continuity of Care Document ---
Author Author Dipak SANCHEZ Organization Unknown Address [address] [address] Phone [phone] Care Team Providers Care Salsa Dance Instructor Name Role Phone Nader Goldman MD AUTM [phone] [facility] Radiology AUTM [phone] Problems Active Problems Provider Date Hemorrhoids Onset: [...] CPT Code Status Date Vaccine Lot # [id number] Given 01/08/2020 Pneumovax 23 [id number] Given 03/26/2012 Influenza Virus Vaccine 91965 Refused 05/13/2018 Influenza Virus Vaccine, Quadrivalent ([id number]), Derived From Cell [id number] Refused 03/26/2012 Adacel- Tetanus Diphtheria P ertussis [...] Result H/L Range Note Laboratory test finding 03/03/2021 [facility] shukri bush Machine Setter And Repairer: Dr Martín [place] [address] [phone] Magnesium, Serum <pending> Laboratory test finding 02/28/[address] [id number] [phone] Ammonia 48 uMOL/L High <32 Total Iron Binding Capacit 02/28/2021 [facility] [address] [place] [address] [id number] [phone] Iron (Fe) 52 g/dL Low 65-175 Total Iron Binding Capacity 456 g/dL High 250-450 Percent Saturation 11.4 % Low 19.7-50.0 Laboratory test finding 02/28/[address] [id number] [phone] Ferritin 33 NG/ML Normal 26-388 Hepatitis Profile 02/28/2021 [facility] [address] [place] [address] [phone] Hepatitis C Virus Kelly Index 0.1 INDEX Normal <0.8 1 Hepatitis B Surface Antigen NEGATIVE Normal Negative Hepatitis B Core Antibody Igm NEGATIVE Normal Negative Hepatitis A Antibody Igm NEGATIVE Normal Negative Laboratory test finding 02/28/2021 [facility] [address] [place] [address] [phone] Hepatitis B Surface Antibody NEGATIVE Normal Pos itive Laboratory test finding 02/28/2021 [facility] [address] [place] [id number] [phone] Hepatitis B Surface Antibody <pending> Complete Blood Count 02/28/2021 [facility] shukri gordon Machine Setter And Repairer: Dr Martín Sanchez [place] [id number] [phone] WBC 9.2 x10*3/UL 4.1 - 10.9 RBC [...] 2.0 - 7.8 Comprehensive Chem Profile 02/28/2021 [facility] shukri Newsome Machine Setter And Repairer: Dr Martín [place] [address] [phone] Glucose 111 mg/dL High 74 - 99 [...] mL/min >60 3 Ua Dipstick Only 02/28/2021 [facility] Machine Setter And Repairer: Dr Martín Sanchez [place], [place] [address]008 [phone] Urine Color YELLOW Yellow Urine Appearance CLEAR Clear Urine PH 6.0 units 5.0 - 9.0 Urine Specific [place] 1.020 1.005 - 1.030 Urine Leukocytes NEGATIVE Negative Urine Blood NEGATIVE Negative Urine Protein NEGATIVE Negative -Trace Urine Glucose NEGATIVE mg/dL Negative Urine Nitrite NEGATIVE Negative Urine Ketone NEGATIVE mg/dL Negative Urine Bilirubin NEGATIVE Negative Urine Urobilinogen 0.2 mg/dL 0.2 - 1.0 Prothrombin Time/Inr 02/28/2021 [facility] enter [address] [place], [place] [id number] [phone] Prothrombin Time 15.4 seconds High 12.7-14.5 Inr 1.18 Normal 4 Istat Chem8+ Panel 02/23/2021 [facility] nter [address] [place] [address] [phone] iSTAT HCT 37.0 % Low 38.0-51.0 iSTAT Glucose 145 mg/dL High 70-105 iSTAT Sodium 138 mEq/L Normal 136-145 iSTAT Potassium 4.3 mEq/L Normal 3.5-5.1 iSTAT CA++ 5.2 mg/dL Normal 4.5-5.3 iSTAT Chloride 100 mEq/L Normal 98-109 iSTAT Co2 27.0 MM/L Normal 23.0-27.0 iSTAT BUN 20 mg/dL Normal 8-26 iSTAT Creatinine 0.8 mg/dL Normal 0.6-1.3 Laboratory test finding 02/23/[address] [address] [phone] iSTAT Troponin 0.00 NG/ML Normal 0.00-0.08 Laboratory test finding 02/23/[address] [address] [phone] NT-Pro BNP 303 pg/mL High <125 Lipase 249 U/L Normal 73-393 Thyroid Stimulating Hormone 1.080 uIU/ML Normal 0.358-3.740 Free T4 1.07 ng/dL Normal 0.76-1.46 Cardiac Marker Panel 02/23/2021 [facility] enter [address] [place] [address] [phone] CPK Creatine Phosphokinase 102 U/L Normal 39-30 8 CK-MB Value Mass 3.3 NG/ML Normal <3.6 MB/CK Relative Index 3.24 Normal < Or =4 5 Troponin I < 0.02 NG/ML Normal < 0.10 6 Liver Profile 02/23/2021 [facility] nter [address] [place] [address] [phone] Ast/Sgot 24 U/L Normal 7-37 Alt/SGPT 32 U/L Normal 12-78 Alkaline Phosphatase 67 U/L Normal 45-117 Bilirubin,Total 0.9 mg/dL Normal 0.2-1.0 Bilirubin,Direct 0.3 mg/dL High 0.0-0.2 Total Protein 7.2 GM/DL Normal 6.4-8.2 Albumin 3.1 GM/DL Low 3.2-5.2 Albumin/Globulin Ratio 0.8 Normal CBC With Differential 02/23/[address] [address] [phone] White Blood Count 10.8 10 High 4.0-10.0 [...] 36.0-66.0 Lymph % 19.9 % Low 24.0-44.0 Isabella % 9.5 % High 2.0-8.0 Eos % 2.3 % Normal 0.0-3.0 Baso % 1.1 % High 0.0-1.0 Immature Granulocyte % 0.4 % Normal 0-3.0 Nucleated Red Blood Cell % 0.0 % Normal 0-0 Neutrophils # 7.2 10 Normal 1.5-8.5 Lymph # 2.1 10 Normal 1.5-5.0 Isabella # 1.0 10 High 0.0-0.8 Eos # 0.3 10 Normal 0.0-0.5 Baso # 0.1 10 Normal 0.0-0.2 Influenza A/B RSV Covid Amp 02/23/2021 [facility] [address] [place] [address] [phone] Influenza A Amplification NEGATIVE Normal Negati ve 7 Influenza B Amplification NEGATIVE Normal Negative 8 RSV Amplification NEGATIVE Normal Negative 9 Sars Covid-19 Amplification NEGATIVE Normal Negative 10 Laboratory test finding 02/23/2021 [facility] [address] [place] [address] [phone] iSTAT Troponin 0.00 NG/ML Normal 0.00-0.08 Laboratory test finding 02/23/2021 [facility] [address] [place] [address] [phone] iSTAT Troponin 0.01 NG/ML Normal 0.00-0.08 A1c 01/31/2021 [facility] Machine Setter And Repairer: Dr Martín [place] [address] [phone] Hba1c 6.9 % High <5.7 11 Est Avg Glucose 151 mg/dL High 60 - 110 Laboratory test finding 01/31/2021 [facility] shukri bush Machine Setter And Repairer: Dr Martín Sanchez [place], [place] [id number] [phone] Magnesium 1.6 mg/dL Low 1.8 - 2.4 Comprehensive Chem Profile 01/31/2021 [facility] shukri Newsome Machine Setter And Repairer: Dr Martín Sanchez [place] [id number] [phone] Glucose 75 mg/dL 74 - 99 12 [...] mL/min >60 13 Complete Blood Count 11/10/2020 [facility] Machine Setter And Repairer: Dr Martín Sanchez [place] 8[address]335 [phone] WBC 9.0 x10*3/UL 4.1 - 10.9 RBC [...] 6.6 x10*3/UL 2.0 - 7.8 A1c 11/10/2020 [facility] , Machine Setter And Repairer: Dr Martín [place] [address] [phone] Hba1c 6.7 % High <5.7 14 Est Avg Glucose 146 mg/dL High 60 - 110 Comprehensive Chem Profile 11/10/2020 [facility], Machine Setter And Repairer: Dr Martín [place] [address] [phone] Glucose 104 mg/dL High 74 - 99 [...] mL/min >60 16 Complete Blood Count 09/08/2020 [facility] Machine Setter And Repairer: Dr Martín [place] [address] [phone] WBC 10.3 x10*3/UL 4.1 - 10.9 RBC [...] 7.4 x10*3/UL 2.0 - 7.8 A1c 09/08/2020 [facility] , Machine Setter And Repairer: Dr Martín [place] [address] [phone] Hba1c 6.7 % High <5.7 17 Est Avg Glucose 146 mg/dL High 60 - 110 Comprehensive Chem Profile 09/08/2020 [facility], Machine Setter And Repairer: [place]ín [place] [address] [phone] Glucose 113 mg/dL High 74 - 99 [...] LITTLE GFR LEFT ESRD GFR <15 ON WEB METHODS DEVELOPER 4 THERAPUTIC HUMAN INR VALUES INDICATIONS NORMAL [...] Troponin I Reference Interva l for Siemens Livrada LOCI: 99th Percentile= 0.00-0.045 ng/ml Risk Stratification: [...] pathogens. DISCLAIMER: Testing was performed using the [employer] SARS-CoV-2 test. This test was developed and its performance characteristics determined by [employer]. This test has not been FDA cleared [...] LITTLE GFR LEFT ESRD GFR <15 ON WEB METHODS DEVELOPER 14 Lab Result Notes: Pre-Diabetes 5.7 - [...] LITTLE GFR LEFT ESRD GFR <15 ON WEB METHODS DEVELOPER 17 Lab Result Notes: Pre-Diabetes 5.7 - [...] LITTLE GFR LEFT ESRD GFR <15 ON WEB METHODS DEVELOPER Procedures Date Code Description Status 02/28/2021 98130 Office/Outpatient Established Mo d MDM 30-39 Min Completed 01/31/2021 09982 Office/Outpatient Established Mo d MDM 30-39 Min Completed 01/31/2021 96424 EKG/Interpretation & Report Comp leted 11/10/2020 45622 Office/Outpatient Established Mo d MDM 30-39 Min Completed 11/09/2020 [id number] Colonoscopy Completed 09/08/2020 56363 Trans Care SRV W/I 14D Of DC, Co mm W/I 2 Dys Med Rec Completed 01/21/2019 [id number] Colonoscopy Completed 12/10/2018 [id number] Colonoscopy Completed 11/13/2018 [id number] Diabetic Retinal Eye Exam Comple nory 06/22/2015 [id number] Diabetic Retinal Eye Exam Comple [facility] Medical Devices Description No Information Available Encounters Type Date Location Provider Dx Diagnosis Office Visit 02/28/2021 10:40a [facility] Sanchez DO G93.40 Encephalopathy, unspecified G47.01 Insomnia due to medical cond ition K70.30 Alcoholic cirrhosis of liver without ascites R60.9 Edema, unspecified I48.91 Unspecified atrial fibrillat ion Z79.01 assisted (current) use of a nticoagulants D64.9 Anemia, unspecified I10 Essential (primary) hyperten margie Office Visit 01/31/2021 1:40p [facility] sailaja Sanchez DO Z01.810 Encounter for preprocedural cardiovascular examination M25.511 Pain in right shoulder I48.91 Unspecified atrial fibrillat ion Z79.01 assisted (current) use of a nticoagulants Z79.84 assisted (current) use of o ral hypoglycemic drugs E11.9 Type 2 diabetes mellitus wit hout complications I10 Essential (primary) hyperten margie G47.33 Obstructive sleep apnea (nancy lt) (pediatric) Office Visit 11/10/2020 11:30a [facility] Goldman M.D. 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.01 [place] (current) use of a nticoagulants E11.9 Type [...] with medication regimen Office Visit 09/08/2020 10:00a [facility] 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 Assessments Date Code Description Provider 02/28/2021 G93.40 Encephalopathy, unspecified Crystali tona Sanchez, DO 02/28/2021 G47.01 Insomnia due to medical conditio n Milton Sanchez, DO 02/28/2021 K70.30 Alcoholic cirrhosis of liver wit hout ascites Milton Sanchez, DO 02/28/2021 R60.9 Edema, unspecified Milton verma, DO 02/28/2021 I48.91 Unspecified atrial fibrillation Milton Sanchez, DO 02/28/2021 Z79.01 [place] (current) use of antic oagulants Milton Sanchez, DO 02/28/2021 D64.9 Anemia, unspecified Milton Sanchez, DO 02/28/2021 I10 Essential (primary) hypertension Milton Sanchez, DO 01/31/2021 Z01.810 Encounter for preprocedural card iovascular examination Milton Sanchez, DO 01/31/2021 M25.511 Pain in right shoulder Douglas Sanchez, DO 01/31/2021 I48.91 Unspecified atrial fibrillation Milton Sanchez, DO 01/31/2021 Z79.01 assisted (current) use of antic oagulants Milton Sanchez, DO 01/31/2021 Z79.84 [place] (current) use of oral hypoglycemic drugs Milton Sanchez, DO 01/31/2021 E11.9 Type 2 diabetes mellitus without complications Shaileshluna Lisseth, DO 01/31/2021 I10 Essential (primary) hypertension Shaileshluna Lisseth, DO 01/31/2021 G47.33 Obstructive sleep apnea (adult) (pediatric) Shaileshluna Lisseth, DO 11/10/2020 E78.5 Hyperlipidemia, unspecified Aamir Goldman M.D. 11/10/2020 I48.91 Unspecified atrial fibrillation Nader Goldman M.D. 11/10/2020 Z79.01 [place] (current) use of antic oagulanmehran Goldman M.D. 11/10/2020 E11.9 Type 2 diabetes [...] atrial fibrillation Nader Goldman M.D. 09/08/2020 Z79.01 [place] (current) use of antic tylerguyari Goldman M.D. 09/08/2020 Z91.14 Patient's other noncompliance [...] 11:00 am - Milton Sanchez DO at [facility] * 03/31/2021 2:30 pm - Nader Goldman M.D. at [facility] Functional Status Description No Information Available Mental Status Description No Information Available Referrals Description No Information Available
--- OUTSIDE RECORDS SUMMARY | 2021-03-14 14:10 | CCD ---
Continuity of Care Document (CCD) Created on: 02/22/2021 Dipak Mcmahan External Reference #: [id number] : [id number] Sex: Male Author Author Dipak CID MD Organization Unknown Address [id number] [place] [address] , [facility] [address] [place] [address] Phone [phone] Care Team Providers Care Cut Off Machine Helper Name Role Phone Nader Goldman M.D. AUTM [phone] AUTM Unavailable Problems Active Problems Provider Date Obstructive sleep apnea syndrome Erika Mendoza, AidaN.PYo Onset: 05/22/2010 Essential hypertension Fco Cates MD Onset: 019 Social History Type Date Description Comments Sex Unknown ETOH Use Drinks 6 Alcoholic Beverages Per Day august 23 2019 quit drinking Tobacco Use Start: Unknown Denies Smoking Recreational Drug Use History Of medical ma rijuana, quit Smoking Status Reviewed: 09/22/20 Denies Smoking Exercise Type/Frequency Occasional Mild Exercise stationary bike Allergies, Adverse Reactions, Alerts Description No Known Drug Allergies Medications Active Medications SIG Qnty Indications Ordering Provide r Date Methylprednisolone 4mg Tablets dose jessica, take as directed on sheet 1tajanusz Cid MD Cyclobenzaprine HCL 10mg Tablets 1 tab by mouth twice a day as needed 30tabs Marek Cid MD 0 01/02/2021 Anusol-HC 25mg Suppository [address] of rectum twice a day as needed 12units Octavio Madden NP 02/04/2019 Metformin HCL 500mg Tablets 1 by mouth twice a day Unknown Hydrochlorothiazide 25mg Tablets 1 by mouth every day Unknown Sertraline HCL 50mg Tablets 1 by mouth every day Unknown Lisinopril 10mg Tablets 1 by mouth every day Unknown Omeprazole 20mg Capsules DR 1 by mouth every day Unknown Eliquis 5mg Tablets One ta b twice a day Clem Mcarthur M.D. (Gov) Metoprolol Tartrate 25mg Tablets one tab twice a day Clem Mcarthur M.D. (Gov) 0 History Medications Percocet 5-325mg Tablets 1 by mouth every 4 hours as needed post op pain 30tabs Lanny Esquivel 02/08/2021 - 02/22/2020 Suprep Bowel Prep Kit 17.5-3.13-1.6GM/177ML Solution take per doctor's bowel prep instructions. 354ml Z12.1 1 Fco Cates MD 11/02/2020 - 12/16/2019 Immunizations CPT Code Status Date Vaccine Lot # [id number] Given 02/13/2010 Influenza Virus Split 3 Yrs And Above For Intramuscular Use Vital Signs Date Vital Result Comment 01/17/2021 1:58pm Body Temperature 97.9 F 12/15/2020 10:56am Body Temperature 98.7 F Results Test Acquired Date Facility Test Result H/L Range Note Laboratory test finding 11/09/2020 [facility] [address] [place] [address] [phone] Pathology Request For Service (SEE NOTE) 1 1 FINAL DIAGNOSIS Descending and rectum polyps, polypectomy: Hyperplastic poly, fragments. 11/10/2020 - 100 CLINICAL DIAGNOSIS History colon cancer 11/09/2020 - 1450 GROSS DIAGNOSIS Received in formalin labeled "biopsy descending colon/polyps rectum" and consists of fragments of tissue, 0.2 x 0.1 x 0.1 cm. All in one. -OA 11/09/2020 - 1450 Signed MEGHAN HOLT MD 11/10/2020 1001 Procedures Date Code Description Status 02/08/2021 42850 Surgical Arthroscopy Shoulder W/ Rotator Cuff RPR Completed 02/08/2021 16675 Surgical Arthroscopy Halina W/Corac oacrm Ligm RLS Completed 02/08/2021 20227 Surgical Arthroscopy Shoulder DS TL Claviculc Completed 01/17/2021 18533 Office/Outpatient Established Mo d MDM 30-39 Min Completed 12/20/2020 05100 Office/Outpatient Established Lo w MDM 20-29 Min Completed 12/15/2020 84967 Office/Outpatient Established Mo d MDM 30-39 Min Completed 12/15/202034091 Inject/Drain Arthrocentesis Kylee r Joint/Bursa/Ganglion Cyst Completed 11/09/2020 66269 Colonoscopy Flexible Proximal To Splenic Flexure W/Biopsy Single/ Completed 10/07/2020 76086 Office/Outpatient Established Lo w MDM 20-29 Min Completed 09/22/2020 39538 Office/Outpatient New Moderate M DM 45-59 Minutes Completed Medical Devices Description No Information Available Encounters Type Date Location Provider Dx Diagnosis Office Visit 02/21/2021 9:15a [facility] Marek Cid MD Z47.89 Encounter for other orthopedic aftercare Office Visit 01/17/2021 2:00p [facility] Marek Cid MD S46.011A Strain of musc/tend the rotator cuff of right shoulder, init Office Visit 12/20/2020 9:15a [facility] Marek Cid MD S46.011D Strain of musc/tend the rotator cuff of right shoulder, subs Office Visit 12/15/2020 10:45a [facility] Marek Cid MD S46.011D Strain of musc/tend the rotator cuff of right shoulder, subs S46.111D Strain of musc/fasc/tend storm g hd bicep, right arm, subs M75.41 Impingement syndrome of righ t shoulder Office Visit 10/07/2020 2:15p [facility] Marek Cid MD S46.111A Strain of musc/fasc/tend long hd bicep, right arm, init M75.41 Impingement syndrome of righ t shoulder S46.011D Strain of musc/tend the rota tor cuff of right shoulder, subs Office Visit 09/22/2020 9:00a [facility] Marek Cid MD S46.011A Strain of musc/tend the rotator cuff of right shoulder, init S49.91xA Unsp injury of right shoulde r and upper arm, init encntr Assessments Date Code Description Provider 02/21/2021 Z47.89 Encounter for other orthopedic a ftercare Marek Cid MD 02/08/2021 M75.51 Bursitis of right shoulder Marek Cid MD 02/08/2021 M19.011 Primary osteoarthritis, right sh richard Cid MD 02/08/2021 M75.41 Impingement syndrome of right sh richard Cid MD 02/08/2021 M67.813 Other specified disorders of ten don, right shoulder Marek Cid MD 02/08/2021 M75.121 Complete rotator cuf f tear or rupture of right shoulder, not specified as traumatic Marek Cid MD 01/17/2021 S46.011A Strain of muscle(s) and tendon(s) of the rotator cuff of right shoulder, initial encounter Marek Cid MD 12/20/2020 S46.011D Strain of muscle(s) and tendon(s) of the rotator cuff of right shoulder, subsequent encounter Marek Cid MD 12/15/2020 S46.011D Strain of muscle(s) and tendon(s) of the rotator cuff of right shoulder, subsequent encounter Marek Cid MD 12/15/2020 S46.111D Strain of muscle, fa scia and tendon of long head of biceps, right arm, subsequent encounter Marek Cid MD 12/15/2020 M75.41 Impingement syndrome of right sh richard Cid MD 11/09/2020 Z12.11 Encounter for screening for guru gnant neoplasm of colon Fco Cates MD 11/09/2020 Z86.010 Personal history of colonic poly ps Fco Cates MD 11/09/2020 K62.1 Rectal polyp Fco everett MD 11/09/2020 K63.5 Polyp of colon Fco everett MD 10/07/2020 S46.111A Strain of muscle, fa scia and tendon of long head of biceps, right arm, initial encounter Marek Cid MD 10/07/2020 M75.41 Impingement syndrome of right sh richard Cid MD 10/07/2020 S46.011D Strain of muscle(s) and tendon(s) of the rotator cuff of right shoulder, subsequent encounter Marek Cid MD 09/22/2020 S46.011A Strain of muscle(s) and tendon(s) of the rotator cuff of right shoulder, initial encounter Marek Cid MD 09/22/2020 S49.91xA Unspecified injury o f right shoulder and upper arm, initial encounter Marek Cid MD 09/20/2020 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
--- OUTSIDE RECORDS SUMMARY | 2021-03-14 14:10 | CCD | Continuity of Care Document ---
Author Organization Unknown Address Unknown Phone Unavailable Care Team Providers Care Application Security Architect Name Role Phone Nader Goldman MD AUTM [phone] [facility] Radiology AUTM [phone] Problems Active Problems Provider Date Hemorrhoids Onset: [...] SIG Qnty Indications Ordering Provide r Date Metoprolol Tartrate 25mg Tablets 3 tabs by mouth twice a day 180tabs Milton Montanez DO 2020 Atorvastatin Calcium 20mg Tablets 1 by mouth every day 30tabs Nader Goldman M.D. 09/01/2020 Ropinirole HCL 4mg Tablets take one tablet by mouth at bedtime 30tabs Nader Albert White, M.D. 021 Metformin HCL 1000mg Tablets take [...] dxe11.9 200units E11.65 Nader Goldman M.D. 06/17/2015 Hydrochlorothiazide 25mg Tablets 1 by mouth every day 90tajanusz Goldman M.D. 03/23/[address] 1 by mouth every day 90caps Nader Goldman M.D. 01/03/2015 Lisinopril 10mg Tablets 1/2 tab richard 90tajanusz Goldman M.D. 03/03/2014 Zoloft 50mg Tablets 1 tablet, 1 time per day, for 90 days 90tajanusz Goldman M.D. Eliquis 5mg Tablets take one tablet by mouth twice a day 180tajanusz Goldman M.D. 0 Medications Administered in Office Medication SIG Qnty Indications Ordering Provider Date Immunization Adminstration,1 Vaccine/Tox oid Injection Nader Goldman M.D. 020 Immunizations CPT Code Status Date Vaccine Lot # 29868 Given 01/08/2020 Pneumovax 23 [id number] Given 03/26/2012 Influenza Virus Vaccine 61574 Refused 05/13/2018 Influenza Virus Vaccine, Quadrivalent (Cciiv4), Derived From Cell 67880 Refused 03/26/2012 Adacel- Tetanus Diphtheria P ertussis Vital Signs Date Vital Result Comment 01/31/2021 1:51pm BP Systolic 118 mmHg BP Diastolic 94 mmHg Heart Rate 73 /min Height 70 inches 5'10" Weight 249.00 lb O2 % BldC Oximetry 98 % BMI (Body Mass Index) 35.7 kg/m2 11/10/2020 11:42am BP Systolic 118 mmHg BP Diastolic 62 mmHg Heart Rate 70 /min Height 70 inches 5'10" Weight 240.00 lb BMI (Body Mass Index) 34.4 kg/m2 Results Test Acquired Date Facility Test Result H/L Range Note Laboratory test finding 02/23/2021 [facility] [address] [place] [address] [phone] iSTAT Troponin 0.00 NG/ML Normal 0.00-0.08 Influenza A/B RSV Covid Amp 02/23/[address] [address] [phone] Influenza A Amplification NEGATIVE Normal Negati ve 1 Influenza B Amplification NEGATIVE Normal Negative 2 RSV Amplification NEGATIVE Normal Negative 3 Sars Covid-19 Amplification NEGATIVE Normal Negative 4 CBC With Differential 02/23/2021 [facility] [address] [place] [address] [phone] White Blood Count 10.8 10 High 4.0-10.0 [...] 36.0-66.0 Lymph % 19.9 % Low 24.0-44.0 [place] % 9.5 % High 2.0-8.0 Eos % 2.3 % Normal 0.0-3.0 Baso % 1.1 % High 0.0-1.0 Immature Granulocyte % 0.4 % Normal 0-3.0 Nucleated Red Blood Cell % 0.0 % Normal 0-0 Neutrophils # 7.2 10 Normal 1.5-8.5 Lymph # 2.1 10 Normal 1.5-5.0 [place] # 1.0 10 High 0.0-0.8 Eos # 0.3 10 Normal 0.0-0.5 Baso # 0.1 10 Normal 0.0-0.2 Cardiac Marker Panel 02/23/2021 [facility] enter [address] [place] [address] [phone] CPK Creatine Phosphokinase 102 U/L Normal 39-30 8 CK-MB Value Mass 3.3 NG/ML Normal <3.6 MB/CK Relative Index 3.24 Normal < Or =4 5 Troponin I < 0.02 NG/ML Normal < 0.10 6 Liver Profile 02/23/2021 [facility] nter [address] [place] [address] [phone] Ast/Sgot 24 U/L Normal 7-37 Alt/SGPT 32 U/L Normal 12-78 Alkaline Phosphatase 67 U/L Normal 45-117 Bilirubin,Total 0.9 mg/dL Normal 0.2-1.0 Bilirubin,Direct 0.3 mg/dL High 0.0-0.2 Total Protein 7.2 GM/DL Normal 6.4-8.2 Albumin 3.1 GM/DL Low 3.2-5.2 Albumin/Globulin Ratio 0.8 Normal Laboratory test finding 02/23/2021 [facility] [address] [place] [address] [phone] NT-Pro BNP 303 pg/mL High <125 Lipase 249 U/L Normal 73-393 Thyroid Stimulating Hormone 1.080 uIU/ML Normal 0.358-3.740 Free T4 1.07 ng/dL Normal 0.76-1.46 Laboratory test finding 02/23/2021 [facility] [address] [place] [address] [phone] iSTAT Troponin 0.00 NG/ML Normal 0.00-0.08 Istat Chem8+ Panel 02/23/2021 [facility] nter [address] [place] [address] [phone] iSTAT HCT 37.0 % Low 38.0-51.0 iSTAT Glucose 145 mg/dL High 70-105 iSTAT Sodium 138 mEq/L Normal 136-145 iSTAT Potassium 4.3 mEq/L Normal 3.5-5.1 iSTAT CA++ 5.2 mg/dL Normal 4.5-5.3 iSTAT Chloride 100 mEq/L Normal 98-109 iSTAT Co2 27.0 MM/L Normal 23.0-27.0 iSTAT BUN 20 mg/dL Normal 8-26 iSTAT Creatinine 0.8 mg/dL Normal 0.6-1.3 Laboratory test finding 02/23/2021 [facility] [address] [place] [address] [phone] iSTAT Troponin 0.01 NG/ML Normal 0.00-0.08 A1c 01/31/2021 [facility] , Ammonia Technician: Dr [place]ín [place] [address] [phone] Hba1c 6.9 % High <5.7 7 Est Avg Glucose 151 mg/dL High 60 - 110 Comprehensive Chem Profile 01/31/2021 [facility] Ammonia Technician: Dr Martín [place] [address] [phone] Glucose 75 mg/dL 74 - 99 8 BUN 14 mg/dL 7 - 18 Creatinine [...] mL/min >60 GFR >= 60 mL/min >60 9 Laboratory test finding 01/31/2021 [facility] Ammonia Technician: Dr Martín [place] [address] [phone] Magnesium 1.6 mg/dL Low 1.8 - 2.4 Complete Blood Count 11/10/2020 [facility] Ammonia Technician: Dr Martín [place] [address] [phone] WBC 9.0 x10*3/UL 4.1 - 10.9 RBC [...] 6.6 x10*3/UL 2.0 - 7.8 A1c 11/10/2020 [facility] Ammonia Technician: Dr [place]ín [place] [address] [phone] Hba1c 6.7 % High <5.7 10 Est Avg Glucose 146 mg/dL High 60 - 110 Comprehensive Chem Profile 11/10/2020 [facility] Ammonia Technician: Dr Martín Montanez [place], [place] [address] [phone] Glucose 104 mg/dL High 74 - 99 11 BUN 14 mg/dL 7 - 18 Creatinine [...] mL/min >60 GFR >= 60 mL/min >60 12 Complete Blood Count 09/08/2020 [facility] Ammonia Technician: Dr Martín Montanez [place], [place] [address] [phone] WBC 10.3 x10*3/UL 4.1 - 10.9 RBC [...] 7.4 x10*3/UL 2.0 - 7.8 A1c 09/08/2020 [facility] , Ammonia Technician: Dr Martín Montanez [place], [place] [id number] [phone] Hba1c 6.7 % High <5.7 13 Est Avg Glucose 146 mg/dL High 60 - 110 Comprehensive Chem Profile 09/08/2020 [facility], Ammonia Technician: Dr Martín [place] [address] [phone] Glucose 113 mg/dL High 74 - 99 14 BUN 14 mg/dL [...] >60 GFR >= 60 mL/min >60 15 1 Negative results do not prec lude influenza or RSV virus infection and should not be used as the sole basis for treatment or other patient management decisions. 2 Negative results do not prec lude influenza or RSV virus infection and should not be used as the sole basis for treatment or other patient management decisions. 3 Negative results do not prec lude influenza or RSV virus infection and should not be used as the sole basis for treatment or other patient management decisions. 4 A false negative result may occur if [...] pathogens. DISCLAIMER: Testing was performed using the [employer] SARS-CoV-2 test. This test was developed and its performance characteristics determined by [employer]. This test has not been FDA cleared [...] the authorization is terminated or revoked sooner. 5 DIAGNOSIS CRITERIA MMB ng/ml Relative Index (RI) NON-AMI < or = 5 N/A ENRIQUEZ ZONE > 5 < or = 4 AMI > 5 > 4 6 Troponin I Reference Interva l for [email or web address] [place] LOCI: 99th Percentile= 0.00-0.045 ng/ml Risk Stratification: <= 0.10 ng/ml Decreased Risk for Adverse Clinical Events. 0.10-1.50 ng/ml Increased Risk for Adv erse Clinical Events. Evaluation of additional criterion and/or repeat testing in 2-6 hours is suggested to rule out myocardial damage. >= 1.50 ng/ml Indicative of Myocardial Injury. 7 Lab Result Notes: Pre-Diabetes 5.7 - 6.4 % Diabetes = or > 6.5% 8 100-125 mg/dL PRE-DIABET ES/FASTING >126 mg/dL DIABETES/FASTING 9 CHRONIC KIDNEY DISEASE STAGI NG PER NKF STAGE I & II GFR >= 60 NORMAL TO MILDLY DECREASED STAGE III GFR 30-59 MODERATELY DECREASED STAGE IV GFR 15-29 SEVERELY DECREASED STAGE V GFR <15 VERY LITTLE GFR LEFT ESRD GFR <15 ON WATER AND SEW[employer] SYSTEMS SUPERVISOR 10 Lab Result Notes: Pre-Diabetes 5.7 - 6.4 % Diabetes = or > 6.5% 11 100-125 mg/dL PRE-DIABET ES/FASTING >126 mg/dL DIABETES/FASTING 12 CHRONIC KIDNEY DISEASE STAGI NG PER NKF STAGE I & II GFR >= 60 NORMAL TO MILDLY DECREASED STAGE III GFR 30-59 MODERATELY DECREASED STAGE IV GFR 15-29 SEVERELY DECREASED STAGE V GFR <15 VERY LITTLE GFR LEFT ESRD GFR <15 ON WATER AND SEWER SYSTEMS SUPERVISOR 13 Lab Result Notes: Pre-Diabetes 5.7 - [...] LITTLE GFR LEFT ESRD GFR <15 ON WATER AND [employer] SYSTEMS SUPERVISOR Procedures Date Code Description Status 01/31/2021 32065 Office/Outpatient Established Mo d MDM 30-39 Min Completed 01/31/2021 26682 EKG/Interpretation & Report Comp leted 11/10/2020 06362 Office/Outpatient Established Mo d MDM 30-39 Min Completed 11/09/2020 [id number] Colonoscopy Completed 09/08/2020 11048 Trans Care SRV W/I 14D Of DC, Co mm W/I 2 Dys Med Rec Completed 01/21/2019 [id number] Colonoscopy Completed 12/10/2018 [id number] Colonoscopy Completed 11/13/2018 [id number] Diabetic Retinal Eye Exam [facility] 06/22/2015 [id number] Diabetic Retinal Eye Exam Comple [facility] Medical Devices Description No Information Available Encounters Type Date Location Provider Dx Diagnosis Office Visit 01/31/2021 1:40p [facility] Crystal Montanez DO Z01.810 Encounter for preprocedural cardiovascular examination M25.511 Pain in right shoulder I48.91 Unspecified atrial fibrillat ion Z79.01 cook mess (current) use of a nticoagulants Z79.84 prison (current) use of o ral hypoglycemic drugs E11.9 Type 2 diabetes mellitus wit hout complications I10 Essential (primary) hyperten margie G47.33 Obstructive sleep apnea (nancy lt) (pediatric) Office Visit 11/10/2020 11:30a [facility] Nader Goldman M.D. 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.01 [place] (current) use of a nticoagulants E11.9 Type [...] with medication regimen Office Visit 09/08/2020 10:00a [facility] Goldman M.D. I48.91 Unspecified atrial fibrillation Z79.01 prison (current) use of a nticoagulants Z91.14 Patient's other noncomplianc e with medication regimen E11.9 Type 2 diabetes mellitus wit hout complications K70.9 Alcoholic liver disease, uns pecified F34.1 Dysthymic disorder G47.33 Obstructive sleep apnea (nancy lt) (pediatric) K21.9 Gastro-esophageal reflux dis ease without esophagitis Z85.038 Personal history of malignan t neoplasm of large intestine Assessments Date Code Description Provider 01/31/2021 Z01.810 Encounter for preprocedural card iovascular examination Milton Montanez, 01/31/2021 M25.511 Pain in right shoulder Douglas Montanez, 01/31/2021 I48.91 Unspecified atrial fibrillation Milton Montanez, 01/31/2021 Z79.01 prison (current) use of antic oagulants Milton Montanez, 01/31/2021 Z79.84 prison (current) use of oral hypoglycemic drugs Milton Montanez, 01/31/2021 E11.9 Type 2 diabetes mellitus without complications Milton Montanez, 01/31/2021 I10 Essential (primary) hypertension Milton Montanez, 01/31/2021 G47.33 Obstructive sleep apnea (adult) (pediatric) Milton Montanez, 11/10/2020 E78.5 Hyperlipidemia, unspecified Aamir Goldman M.D. 11/10/2020 I48.91 Unspecified atrial fibrillation Nader Goldman M.D. 11/10/2020 Z79.01 [place] (current) use of antic oagulants Nader Goldman [...] Goldman M.D. 11/10/2020 Z91.[address] noncompliance [facility] medication regimen Nader Goldman M.D. 09/08/2020 I48.91 Unspecified atrial fibrillation Nader Goldman M.D. 09/08/2020 Z79.01 prison (current) use of antic oagulants Nader Goldman M.D. 09/08/2020 Z91.14 Patient's other noncompliance [facility] medication regimen Nader Goldman M.D. 09/08/2020 [...] Goldman M.D. Plan of Treatment Future Appointment(s):* 03/01/2021 2:40 pm - Milton Montanez DO at [facility] * 03/31/2021 2:30 pm - Nader Goldman M.D. at [facility] 11/10/2020 - Nader Goldman M.D.* E78.5 Hyperlipidemia, unspecified * I48.91 Unspecified atrial fibrillation * Z79.01 [place] (current) use of anticoagulants * E11.9 Type [...] is anticoagulated. We will continue to monitor.3. cook mess (current) use of anticoagulants: Doing well with [...]
--- OUTSIDE RECORDS SUMMARY | 2021-03-14 14:10 | CCD | Continuity of Care Document ---
Author Author Dipak SANCHEZ Organization Unknown Address [address] [address] Phone [phone] Care Team Providers Care Auto Parker Name Role Phone Nader Goldman MD AUTM [phone] [facility] Radiology AUTM [phone] Problems Active Problems Provider Date Hemorrhoids Onset: [...] CPT Code Status Date Vaccine Lot # 28311 Given 01/08/2020 Pneumovax 23 [id number] Given 03/26/2012 Influenza Virus Vaccine 48197 Refused 05/13/2018 Influenza Virus Vaccine, Quadrivalent (Cciiv4), Derived From Cell 05659 Refused 03/26/2012 Adacel- Tetanus Diphtheria P ertussis [...] H/L Range Note Laboratory test finding 02/28/2021 [facility] [place] [address] [place], [place] [address] [phone] Ammonia 48 uMOL/L High <32 Total Iron Binding Capacit 02/28/2021 [facility] [address] [place] [id number] [phone] Iron (Fe) 52 g/dL Low 65-175 Total Iron Binding Capacity 456 g/dL High 250-450 Percent Saturation 11.4 % Low 19.7-50.0 Laboratory test finding 02/28/2021 [facility] [place] [address] [place], [place] [address] [phone] Ferritin 33 NG/ML Normal 26-388 Hepatitis Profile 02/28/2021 [facility] nter [address] [place], [place] [address] [phone] Hepatitis C Virus Kelly Index 0.1 INDEX Normal <0.8 1 Hepatitis B Surface Antigen NEGATIVE Normal Negative Hepatitis B Core Antibody Igm NEGATIVE Normal Negative Hepatitis A Antibody Igm NEGATIVE Normal Negative Laboratory test finding 02/28/2021 [facility] [address] [place] [address] [phone] Hepatitis B Surface Antibody NEGATIVE Normal Pos itive Laboratory test finding 02/28/2021 [facility] [address] [place] [address] [phone] Hepatitis B Surface Antibody <pending> Complete Blood Count 02/28/2021 [facility] shukri gordon Centerpuncher: Dr Martín [place] [address] [phone] WBC 9.2 x10*3/UL 4.1 - 10.9 RBC [...] 2.0 - 7.8 Comprehensive Chem Profile 02/28/2021 [facility] Centerpuncher: Dr Martín [place] [address] [phone] Glucose 111 mg/dL High 74 - 99 [...] mL/min >60 3 Ua Dipstick Only 02/28/2021 [facility] Centerpuncher: Dr Martín [place] [address] [phone] Urine Color YELLOW Yellow Urine Appearance CLEAR Clear Urine PH 6.0 units 5.0 - 9.0 Urine Specific [place] 1.020 1.005 - 1.030 Urine Leukocytes NEGATIVE Negative Urine Blood NEGATIVE Negative Urine Protein NEGATIVE Negative -Trace Urine Glucose NEGATIVE mg/dL Negative Urine Nitrite NEGATIVE Negative Urine Ketone NEGATIVE mg/dL Negative Urine Bilirubin NEGATIVE Negative Urine Urobilinogen 0.2 mg/dL 0.2 - 1.0 Prothrombin Time/Inr 02/28/2021 [facility] enter [address] [place] [address] [phone] Prothrombin Time 15.4 seconds High 12.7-14.5 Inr 1.18 Normal 4 Cardiac Marker Panel 02/23/2021 [facility] enter [address] [place] [address] [phone] CPK Creatine Phosphokinase 102 U/L Normal 39-30 8 CK-MB Value Mass 3.3 NG/ML Normal <3.6 MB/CK Relative Index 3.24 Normal < Or =4 5 Troponin I < 0.02 NG/ML Normal < 0.10 6 Istat Chem8+ Panel 02/23/2021 [facility] nter [address] [place] [address] [phone] iSTAT HCT 37.0 % Low 38.0-51.0 iSTAT Glucose 145 mg/dL High 70-105 iSTAT Sodium 138 mEq/L Normal 136-145 iSTAT Potassium 4.3 mEq/L Normal 3.5-5.1 iSTAT CA++ 5.2 mg/dL Normal 4.5-5.3 iSTAT Chloride 100 mEq/L Normal 98-109 iSTAT Co2 27.0 MM/L Normal 23.0-27.0 iSTAT BUN 20 mg/dL Normal 8-26 iSTAT Creatinine 0.8 mg/dL Normal 0.6-1.3 Laboratory test finding 02/23/[address] [address] [phone] iSTAT Troponin 0.00 NG/ML Normal 0.00-0.08 Laboratory test finding 02/23/[address] [address] [phone] NT-Pro BNP 303 pg/mL High <125 Lipase 249 U/L Normal 73-393 Thyroid Stimulating Hormone 1.080 uIU/ML Normal 0.358-3.740 Free T4 1.07 ng/dL Normal 0.76-1.46 Liver Profile 02/23/2021 [facility] nter [address] [place] [address] [phone] Ast/Sgot 24 U/L Normal 7-37 Alt/SGPT 32 U/L Normal 12-78 Alkaline Phosphatase 67 U/L Normal 45-117 Bilirubin,Total 0.9 mg/dL Normal 0.2-1.0 Bilirubin,Direct 0.3 mg/dL High 0.0-0.2 Total Protein 7.2 GM/DL Normal 6.4-8.2 Albumin 3.1 GM/DL Low 3.2-5.2 Albumin/Globulin Ratio 0.8 Normal CBC With Differential 02/23/[address] [address] [phone] White Blood Count 10.8 10 High 4.0-10.0 [...] 36.0-66.0 Lymph % 19.9 % Low 24.0-44.0 [place] % 9.5 % High 2.0-8.0 Eos % 2.3 % Normal 0.0-3.0 Baso % 1.1 % High 0.0-1.0 Immature Granulocyte % 0.4 % Normal 0-3.0 Nucleated Red Blood Cell % 0.0 % Normal 0-0 Neutrophils # 7.2 10 Normal 1.5-8.5 Lymph # 2.1 10 Normal 1.5-5.0 [place] # 1.0 10 High 0.0-0.8 Eos # 0.3 10 Normal 0.0-0.5 Baso # 0.1 10 Normal 0.0-0.2 Influenza A/B RSV Covid Amp 02/23/[address] [address] [phone] Influenza A Amplification NEGATIVE Normal Negati ve 7 Influenza B Amplification NEGATIVE Normal Negative 8 RSV Amplification NEGATIVE Normal Negative 9 Sars Covid-19 Amplification NEGATIVE Normal Negative 10 Laboratory test finding 02/23/[address] [address] [phone] iSTAT Troponin 0.00 NG/ML Normal 0.00-0.08 Laboratory test finding 02/23/[address] [address] [phone] iSTAT Troponin 0.01 NG/ML Normal 0.00-0.08 A1c 01/31/2021 [facility] Centerpuncher: Dr Martín [place] [address] [phone] Hba1c 6.9 % High <5.7 11 Est Avg Glucose 151 mg/dL High 60 - 110 Laboratory test finding 01/31/2021 [facility] Centerpuncher: Dr Martín [place] [address] [phone] Magnesium 1.6 mg/dL Low 1.8 - 2.4 Comprehensive Chem Profile 01/31/2021 [facility]eth[facility] Centerpuncher: Dr Martín [place] [address] [phone] Glucose 75 mg/dL 74 - 99 12 [...] mL/min >60 13 Complete Blood Count 11/10/2020 [facility] shukri gordon Centerpuncher: Dr Martín [place] [address] [phone] WBC 9.0 x10*3/UL 4.1 - 10.9 RBC [...] 6.6 x10*3/UL 2.0 - 7.8 A1c 11/10/2020 [facility] Centerpuncher: Dr Martín [place] [address] [phone] Hba1c 6.7 % High <5.7 14 Est Avg Glucose 146 mg/dL High 60 - 110 Comprehensive Chem Profile 11/10/2020 [facility] Centerpuncher: Dr Martín [place] [address] [phone] Glucose 104 mg/dL High 74 - 99 [...] mL/min >60 16 Complete Blood Count 09/08/2020 [facility] Centerpuncher: Dr Martín [place] [address] [phone] WBC 10.3 x10*3/UL 4.1 - 10.9 RBC [...] 7.4 x10*3/UL 2.0 - 7.8 A1c 09/08/2020 [facility] , Centerpuncher: Dr Martín Sanchez [place], [place] [address] [phone] Hba1c 6.7 % High <5.7 17 Est Avg Glucose 146 mg/dL High 60 - 110 Comprehensive Chem Profile 09/08/2020 [facility] Centerpuncher: Dr Martín [place] [address] [phone] Glucose 113 mg/dL High 74 - 99 [...] LITTLE GFR LEFT ESRD GFR <15 ON AUTOMATION TESTER 4 THERAPUTIC HUMAN INR VALUES INDICATIONS NORMAL [...] Troponin I Reference Interva l for [employer] LOCI: 99th Percentile= 0.00-0.045 ng/ml Risk Stratification: [...] pathogens. DISCLAIMER: Testing was performed using the [employer] SARS-CoV-2 test. This test was developed and its performance characteristics determined by [employer]. This test has not been FDA cleared [...] LITTLE GFR LEFT ESRD GFR <15 ON AUTOMATION TESTER 14 Lab Result Notes: Pre-Diabetes 5.7 - [...] LITTLE GFR LEFT ESRD GFR <15 ON AUTOMATION TESTER 17 Lab Result Notes: Pre-Diabetes 5.7 - [...] LITTLE GFR LEFT ESRD GFR <15 ON AUTOMATION TESTER Procedures Date Code Description Status 01/31/2021 68605 Office/Outpatient Established Mo d MDM 30-39 Min Completed 01/31/2021 63268 EKG/Interpretation & Report Comp leted 11/10/2020 70199 Office/Outpatient Established Mo d MDM 30-39 Min Completed 11/09/2020 [id number] Colonoscopy Completed 09/08/2020 21617 Trans Care SRV W/I 14D Of DC, Co mm W/I 2 Dys Med Rec Completed 01/21/2019 [id number] Colonoscopy Completed 12/10/2018 [id number] Colonoscopy Completed 11/13/2018 [id number] Diabetic Retinal Eye Exam Comple [facility] 06/22/2015 [id number] Diabetic Retinal Eye Exam Comple [facility] Medical Devices Description No Information Available Encounters Type Date Location Provider Dx Diagnosis Office Visit 01/31/2021 1:40p [facility] sailaja Sanchez DO Z01.810 Encounter for preprocedural cardiovascular examination M25.511 Pain in right shoulder I48.91 Unspecified atrial fibrillat ion Z79.01 halfway (current) use of a nticoagulants Z79.84 halfway (current) use of o ral hypoglycemic drugs E11.9 Type 2 diabetes mellitus wit hout complications I10 Essential (primary) hyperten margie G47.33 Obstructive sleep apnea (nancy lt) (pediatric) Office Visit 11/10/2020 11:30a [facility] PKaren Goldman M.D. 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 of antic oagulants Milton Dooleylogg, DO 02/28/2021 D64.9 Anemia, unspecified Milton Lancasterg, DO 02/28/2021 I10 Essential (primary) hypertension Milton Sanchez, DO 01/31/2021 Z01.810 Encounter for preprocedural card iovascular examination Milton Sanchez, DO 01/31/2021 M25.511 Pain in right shoulder Douglas Sanchez, DO 01/31/2021 I48.91 Unspecified atrial fibrillation Milton Sanchez, DO 01/31/2021 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 11/10/2020 I48.91 Unspecified atrial fibrillation Nader Goldman M.D. 11/10/2020 Z79.01 halfway (current) use of antic oagulants Nader Goldman [...] Goldman M.D. 11/10/2020 Z91.14 Patient's other noncompliance [facility] medication regimen Nader Goldman M.D. 09/08/2020 I48.91 Unspecified atrial fibrillation Nader Goldman M.D. 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 09/08/2020 Z91.14 Patient's other noncompliance [facility] medication regimen Nader Goldman M.D. 09/08/2020 [...] 11:40 am - Milton Sanchez DO at [facility] * 03/31/2021 2:30 pm - Nader Goldman M.D. at [facility] 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 We will continue to monitor.3. halfway (current) use of anticoagulants: Doing well with [...]
--- OUTSIDE RECORDS SUMMARY | 2021-03-14 14:10 | CCD | Continuity of Care Document ---
Author Author Dipak SANCHEZ Organization Unknown Address [address] [address] Phone [phone] Care Team Providers Care Lead Pourer Name Role Phone Nader Goldman MD AUTM [phone] [facility] Radiology AUTM [phone] Problems Active Problems Provider Date Hemorrhoids Onset: [...] SIG Qnty Indications Ordering Provide r Date Furosemide 40mg Tablets 1 by mouth every day 30tabs Mitlon Sanchez DO 02/29/20 21 Metoprolol Tartrate 25mg [...] CPT Code Status Date Vaccine Lot # [id number] Given 01/08/2020 Pneumovax 23 [id number] Given 03/26/2012 Influenza Virus Vaccine 33411 Refused 05/13/2018 Influenza Virus Vaccine, Quadrivalent (Cciiv4), Derived From Cell [id number] Refused 03/26/2012 Adacel- Tetanus Diphtheria P ertussis [...] H/L Range Note Laboratory test finding 02/28/2021 [place] [address] [phone] Ammonia <pending> Laboratory test finding 02/28/[address] [address] [phone] Ferritin <pending> Liver Profile 02/23/2021 [facility] [address] [place], [place] [address] [phone] Ast/Sgot 24 U/L Normal 7-37 Alt/SGPT 32 U/L Normal 12-78 Alkaline Phosphatase 67 U/L Normal 45-117 Bilirubin,Total 0.9 mg/dL Normal 0.2-1.0 Bilirubin,Direct 0.3 mg/dL High 0.0-0.2 Total Protein 7.2 GM/DL Normal 6.4-8.2 Albumin 3.1 GM/DL Low 3.2-5.2 Albumin/Globulin Ratio 0.8 Normal Istat Chem8+ Panel 02/23/2021 [facility] [place] [address] [phone] iSTAT HCT 37.0 % Low 38.0-51.0 iSTAT Glucose 145 mg/dL High 70-105 iSTAT Sodium 138 mEq/L Normal 136-145 iSTAT Potassium 4.3 mEq/L Normal 3.5-5.1 iSTAT CA++ 5.2 mg/dL Normal 4.5-5.3 iSTAT Chloride 100 mEq/L Normal 98-109 iSTAT Co2 27.0 MM/L Normal 23.0-27.0 iSTAT BUN 20 mg/dL Normal 8-26 iSTAT Creatinine 0.8 mg/dL Normal 0.6-1.3 Laboratory test finding 02/23/[address] [address] [phone] iSTAT Troponin 0.00 NG/ML Normal 0.00-0.08 Laboratory test finding 02/23/[address] [address] [phone] NT-Pro BNP 303 pg/mL High <125 Lipase 249 U/L Normal 73-393 Thyroid Stimulating Hormone 1.080 uIU/ML Normal 0.358-3.740 Free T4 1.07 ng/dL Normal 0.76-1.46 Cardiac Marker Panel 02/23/2021 [facility] enter [address] [place] [address] [phone] CPK Creatine Phosphokinase 102 U/L Normal 39-30 8 CK-MB Value Mass 3.3 NG/ML Normal <3.6 MB/CK Relative Index 3.24 Normal < Or =4 1 Troponin I < 0.02 NG/ML Normal < 0.10 2 CBC With Differential 02/23/[address] [address] [phone] White Blood Count 10.8 10 High 4.0-10.0 [...] 36.0-66.0 Lymph % 19.9 % Low 24.0-44.0 [place] % 9.5 % High 2.0-8.0 Eos % 2.3 % Normal 0.0-3.0 Baso % 1.1 % High 0.0-1.0 Immature Granulocyte % 0.4 % Normal 0-3.0 Nucleated Red Blood Cell % 0.0 % Normal 0-0 Neutrophils # 7.2 10 Normal 1.5-8.5 Lymph # 2.1 10 Normal 1.5-5.0 [place] # 1.0 10 High 0.0-0.8 Eos # 0.3 10 Normal 0.0-0.5 Baso # 0.1 10 Normal 0.0-0.2 Influenza A/B RSV Covid Amp 02/23/[address] [address] [phone] Influenza A Amplification NEGATIVE Normal Negati ve 3 Influenza B Amplification NEGATIVE Normal Negative 4 RSV Amplification NEGATIVE Normal Negative 5 Sars Covid-19 Amplification NEGATIVE Normal Negative 6 Laboratory test finding 02/23/[address] [address] [phone] iSTAT Troponin 0.00 NG/ML Normal 0.00-0.08 Laboratory test finding 02/23/[address] [address] [phone] iSTAT Troponin 0.01 NG/ML Normal 0.00-0.08 A1c 01/31/2021 [facility] Human Resources Associate: Dr Martín [place] [address] [phone] Hba1c 6.9 % High <5.7 7 Est Avg Glucose 151 mg/dL High 60 - 110 Laboratory test finding 01/31/2021 [facility] Human Resources Associate: Dr Martín [place] [address] [phone] Magnesium 1.6 mg/dL Low 1.8 - 2.4 Comprehensive Chem Profile 01/31/2021 [facility] Human Resources Associate: Dr Martín [place] [address] [phone] Glucose 75 mg/dL 74 - 99 8 [...] >60 GFR >= 60 mL/min >60 9 Complete Blood Count 11/10/2020 [facility] Human Resources Associate: Dr Martín [place] [address] [phone] WBC 9.0 x10*3/UL 4.1 - 10.9 RBC [...] 6.6 x10*3/UL 2.0 - 7.8 A1c 11/10/2020 [facility] Human Resources Associate: Dr Martín [place] [address] [phone] Hba1c 6.7 % High <5.7 10 Est Avg Glucose 146 mg/dL High 60 - 110 Comprehensive Chem Profile 11/10/2020 [facility] Human Resources Associate: Dr Martín [place] [address] [phone] Glucose 104 mg/dL High 74 - 99 [...] mL/min >60 12 Complete Blood Count 09/08/2020 [facility] Human Resources Associate: Dr Martín [place] [address] [phone] WBC 10.3 x10*3/UL 4.1 - 10.9 RBC [...] 7.4 x10*3/UL 2.0 - 7.8 A1c 09/08/2020 [facility] , Human Resources Associate: Dr Martín [place] [address] [phone] Hba1c 6.7 % High <5.7 13 Est Avg Glucose 146 mg/dL High 60 - 110 Comprehensive Chem Profile 09/08/2020 [facility] Human Resources Associate: Dr [place]ín [place] [address] [phone] Glucose 113 mg/dL High 74 - 99 [...] GFR >= 60 mL/min >60 15 1 DIAGNOSIS CRITERIA MMB ng/ml Relative Index (RI) NON-AMI < or = 5 N/A ENRIQUEZ ZONE > 5 < or = 4 AMI > 5 > 4 2 Troponin I Reference Interva l for [place] LOCI: 99th Percentile= 0.00-0.045 ng/ml Risk Stratification: <= 0.10 ng/ml Decreased Risk for Adverse Clinical Events. 0.10-1.50 ng/ml Increased Risk for Adv erse Clinical Events. Evaluation of additional criterion and/or repeat testing in 2-6 hours is suggested to rule out myocardial damage. >= 1.50 ng/ml Indicative of Myocardial Injury. 3 Negative results do not prec lude influenza or RSV virus infection and should not be used as the sole basis for treatment or other patient management decisions. 4 Negative results do not prec lude influenza or RSV virus infection and should not be used as the sole basis for treatment or other patient management decisions. 5 Negative results do not prec lude influenza or RSV virus infection and should not be used as the sole basis for treatment or other patient management decisions. 6 A false negative result may occur if [...] pathogens. DISCLAIMER: Testing was performed using the [employer] SARS-CoV-2 test. This test was developed and its performance characteristics determined by [employer]. This test has not been FDA cleared [...] the authorization is terminated or revoked sooner. 7 Lab Result Notes: Pre-Diabetes 5.7 - [...] LITTLE GFR LEFT ESRD GFR <15 ON BUSINESS EXCELLENCE MANAGER 10 Lab Result Notes: Pre-Diabetes 5.7 - [...] LITTLE GFR LEFT ESRD GFR <15 ON BUSINESS EXCELLENCE MANAGER 13 Lab Result Notes: Pre-Diabetes 5.7 - [...] LITTLE GFR LEFT ESRD GFR <15 ON BUSINESS EXCELLENCE MANAGER Procedures Date Code Description Status 01/31/2021 47190 Office/Outpatient Established Mo d MDM 30-39 Min Completed 01/31/2021 18315 EKG/Interpretation & Report Comp leted 11/10/2020 04296 Office/Outpatient Established Mo d MDM 30-39 Min Completed 11/09/2020 [id number] Colonoscopy Completed 09/08/2020 81115 Trans Care SRV W/I 14D Of DC, Co mm W/I 2 Dys Med Rec Completed 01/21/2019 [id number] Colonoscopy Completed 12/10/2018 [id number] Colonoscopy Completed 11/13/2018 [id number] Diabetic Retinal Eye Exam [facility] 06/22/2015 [id number] Diabetic Retinal Eye Exam [facility] Medical Devices Description No Information Available Encounters Type Date Location Provider Dx Diagnosis Office Visit 01/31/2021 1:40p [facility] Sanchez DO Z01.810 Encounter for preprocedural cardiovascular examination M25.511 Pain in right shoulder I48.91 Unspecified atrial fibrillat ion 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 11/10/2020 I48.91 Unspecified atrial fibrillation Nader Goldman M.D. 11/10/2020 Z79.01 [facility] (current) use of antic oagulants Nader Goldman [...] of other malignant neoplasm of large intestine Naedr Goldman M.D. 11/10/2020 Z91.14 [address] noncompliance [facility] medication regimen Nader Goldman M.D. 09/08/2020 I48.91 Unspecified atrial fibrillation Nader Goldman M.D. 09/08/2020 Z79.01 [facility] (current) use of antic oagulants Nader Goldman M.D. 09/08/2020 Z91.14 Patient's other noncompliance wi medication regimen Nader Goldman M.D. 09/08/2020 E11.9 [...] Goldman M.D. Plan of Treatment Future Appointment(s):* 03/31/2021 2:30 pm - [facility] 02/28/2021 - Milton Sanchez DO* All * New Medication:* Furosemide 40 mg - 1 by mouth every day Functional Status Description No Information Available Mental Status Description No Information Available Referrals Description No Information Available
--- OUTSIDE RECORDS SUMMARY | 2021-03-14 14:10 | CCD | Continuity of Care Document ---
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 0 Medications Administered in Office Medication SIG Qnty Indications Ordering Provider Date Immunization Adminstration,1 Vaccine/Tox oid Injection Nader Goldman M.D. 020 Immunizations CPT Code Status Date Vaccine Lot # [id number] Given 01/08/2020 Pneumovax 23 [id number] Given 03/26/2012 Influenza Virus Vaccine 36618 Refused 05/13/2018 Influenza Virus Vaccine, Quadrivalent (Cciiv4), Derived From Cell 88881 Refused 03/26/2012 Adacel- Tetanus Diphtheria P ertussis [...] H/L Range Note Laboratory test finding 02/23/2021 [facility] [address] [place] [address] [phone] iSTAT Troponin 0.00 NG/ML Normal 0.00-0.08 Influenza A/B RSV Covid Amp 02/23/[address] [address] [phone] Influenza A Amplification NEGATIVE Normal Negati ve 1 Influenza B Amplification NEGATIVE Normal Negative 2 RSV Amplification NEGATIVE Normal Negative 3 Sars Covid-19 Amplification NEGATIVE Normal Negative 4 CBC With Differential 02/23/2021 [address] [place] [address] [phone] White Blood Count 10.8 10 High 4.0-10.0 [...] 36.0-66.0 Lymph % 19.9 % Low 24.0-44.0 [place] % 9.5 % High 2.0-8.0 Eos % 2.3 % Normal 0.0-3.0 Baso % 1.1 % High 0.0-1.0 Immature Granulocyte % 0.4 % Normal 0-3.0 Nucleated Red Blood Cell % 0.0 % Normal 0-0 Neutrophils # 7.2 10 Normal 1.5-8.5 Lymph # 2.1 10 Normal 1.5-5.0 [place] # 1.0 10 High 0.0-0.8 Eos # 0.3 10 Normal 0.0-0.5 Baso # 0.1 10 Normal 0.0-0.2 Cardiac Marker Panel 02/23/2021 [facility] enter [address] [place] [address] [phone] CPK Creatine Phosphokinase 102 U/L Normal 39-30 8 CK-MB Value Mass 3.3 NG/ML Normal <3.6 MB/CK Relative Index 3.24 Normal < Or =4 5 Troponin I < 0.02 NG/ML Normal < 0.10 6 Liver Profile 02/23/2021 [facility] nter [address] [place] [address] [phone] Ast/Sgot 24 U/L Normal 7-37 Alt/SGPT 32 U/L Normal 12-78 Alkaline Phosphatase 67 U/L Normal 45-117 Bilirubin,Total 0.9 mg/dL Normal 0.2-1.0 Bilirubin,Direct 0.3 mg/dL High 0.0-0.2 Total Protein 7.2 GM/DL Normal 6.4-8.2 Albumin 3.1 GM/DL Low 3.2-5.2 Albumin/Globulin Ratio 0.8 Normal Laboratory test finding 02/23/2021 [facility] [address] [place] [address] [phone] NT-Pro BNP 303 pg/mL High <125 Lipase 249 U/L Normal 73-393 Thyroid Stimulating Hormone 1.080 uIU/ML Normal 0.358-3.740 Free T4 1.07 ng/dL Normal 0.76-1.46 Laboratory test finding 02/23/2021 [facility] [address] [place] [address] [phone] iSTAT Troponin 0.00 NG/ML Normal 0.00-0.08 Istat Chem8+ Panel 02/23/2021 [facility] nter [address] [place] [address] [phone] iSTAT HCT 37.0 % Low 38.0-51.0 iSTAT Glucose 145 mg/dL High 70-105 iSTAT Sodium 138 mEq/L Normal 136-145 iSTAT Potassium 4.3 mEq/L Normal 3.5-5.1 iSTAT CA++ 5.2 mg/dL Normal 4.5-5.3 iSTAT Chloride 100 mEq/L Normal 98-109 iSTAT Co2 27.0 MM/L Normal 23.0-27.0 iSTAT BUN 20 mg/dL Normal 8-26 iSTAT Creatinine 0.8 mg/dL Normal 0.6-1.3 Laboratory test finding 02/23/2021 [facility] [address] [place] [address] [phone] iSTAT Troponin 0.01 NG/ML Normal 0.00-0.08 A1c 01/31/2021 [facility] Blast Furnace Operator: Dr Martín [place] [address] [phone] Hba1c 6.9 % High <5.7 7 Est Avg Glucose 151 mg/dL High 60 - 110 Comprehensive Chem Profile 01/31/2021 [facility] Blast Furnace Operator: Dr Martín [place] [address] [phone] Glucose 75 mg/dL 74 - 99 8 [...] mL/min >60 9 Laboratory test finding 01/31/2021 [facility] Blast Furnace Operator: Dr Martín [place] [address] [phone] Magnesium 1.6 mg/dL Low 1.8 - 2.4 Complete Blood Count 11/10/2020 [facility] Blast Furnace Operator: Dr Martín [place] [address] [phone] WBC 9.0 x10*3/UL 4.1 - 10.9 RBC [...] 6.6 x10*3/UL 2.0 - 7.8 A1c 11/10/2020 [facility] Blast Furnace Operator: [place]ín [place] [address] [phone] Hba1c 6.7 % High <5.7 10 Est Avg Glucose 146 mg/dL High 60 - 110 Comprehensive Chem Profile 11/10/2020 [facility] Blast Furnace Operator: Dr Martín Montanez [place], [place] [address] [phone] Glucose 104 mg/dL High 74 - 99 [...] mL/min >60 12 Complete Blood Count 09/08/2020 [facility] Blast Furnace Operator: Dr Martín Montanez [place], [place] [address] [phone] WBC 10.3 x10*3/UL 4.1 - 10.9 RBC [...] 7.4 x10*3/UL 2.0 - 7.8 A1c 09/08/2020 [facility] , Blast Furnace Operator: Dr Martín Montanez [place], [place] [address] [phone] Hba1c 6.7 % High <5.7 13 Est Avg Glucose 146 mg/dL High 60 - 110 Comprehensive Chem Profile 09/08/2020 [facility] Blast Furnace Operator: Dr Martín [place] [address] [phone] Glucose 113 mg/dL High 74 - 99 [...] pathogens. DISCLAIMER: Testing was performed using the [employer] SARS-CoV-2 test. This test was developed and its performance characteristics determined by [employer]. This test has not been FDA cleared [...] 6 Troponin I Reference Interva l for [place] LOCI: 99th Percentile= 0.00-0.045 ng/ml Risk Stratification: [...] LITTLE GFR LEFT ESRD GFR <15 ON CORRUGATED BOX MACHINE OPERATOR 10 Lab Result Notes: Pre-Diabetes 5.7 - [...] LITTLE GFR LEFT ESRD GFR <15 ON CORRUGATED BOX MACHINE OPERATOR 13 Lab Result Notes: Pre-Diabetes 5.7 - [...] LITTLE GFR LEFT ESRD GFR <15 ON CORRUGATED BOX MACHINE OPERATOR Procedures Date Code Description Status 01/31/2021 86596 Office/Outpatient Established Mo d MDM 30-39 Min Completed 01/31/2021 41470 EKG/Interpretation & Report Comp leted 11/10/2020 28486 Office/Outpatient Established Mo d MDM 30-39 Min Completed 11/09/2020 [id number] Colonoscopy Completed 09/08/2020 43851 Trans Care SRV W/I 14D Of DC, Co mm W/I 2 Dys Med Rec Completed 01/21/2019 [id number] Colonoscopy Completed 12/10/2018 [id number] Colonoscopy Completed 11/13/2018 [id number] Diabetic Retinal Eye Exam [facility] 06/22/2015 [id number] Diabetic Retinal Eye Exam [facility] Medical Devices Description No Information Available Encounters Type Date Location Provider Dx Diagnosis Office Visit 01/31/2021 1:40p [facility] 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 Nader Goldman M.D. 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 I48.91 Unspecified atrial fibrillation Z79.01 [facility] [...] Unspecified atrial fibrillation Milton Montanez, 01/31/2021 Z79.01 [facility] (current) use of antic oagulants Milton Montanez, 01/31/2021 Z79.84 [facility] (current) use of oral hypoglycemic drugs Milton Montanez, 01/31/2021 E11.9 Type 2 diabetes mellitus without complications Milton Montanez, 01/31/2021 I10 Essential (primary) hypertension Milton Montanez, 01/31/2021 G47.33 Obstructive sleep apnea (adult) (pediatric) Milton Montanez, 11/10/2020 E78.5 Hyperlipidemia, unspecified Aamir Goldman M.D. 11/10/2020 I48.91 Unspecified atrial fibrillation Nader Goldman M.D. 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 11/10/2020 Z91.[address] [facility] medication regimen Nader Goldman M.D. 09/08/2020 I48.91 Unspecified atrial fibrillation Nader Goldman M.D. 09/08/2020 Z79.01 [facility] (current) use of antic oagulants Nader Goldman M.D. 09/08/2020 Z91.14 [address] noncompliance [facility] medication regimen Nader Goldman M.D. 09/08/2020 [...] 2:40 pm - Milton Montanez DO at [facility] * 03/31/2021 2:30 pm - Nader Goldman M.D. at [facility] 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 We will continue to monitor.3. 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
--- OUTSIDE RECORDS SUMMARY | 2021-03-14 14:10 | CCD | Continuity of Care Document ---
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 Onset: 5 Restless legs Nader Goldman M.D. Onset: 03/23/2015 Hyperlipidemia Nadre Goldman M.D. Onset: 03/23/2015 Noncompliance with treatment [...] CPT Code Status Date Vaccine Lot # 52576 Given 01/08/2020 Pneumovax 23 [id number] Given 03/26/2012 Influenza Virus Vaccine 81567 Refused 05/13/2018 Influenza Virus Vaccine, Quadrivalent (Cciiv4), Derived From Cell 56352 Refused 03/26/2012 Adacel- Tetanus Diphtheria P ertussis [...] H/L Range Note Laboratory test finding 02/23/2021 [facility] [address] [place] [address] [phone] iSTAT Troponin 0.00 NG/ML Normal 0.00-0.08 Influenza A/B RSV Covid Amp 02/23/[address] [address] [phone] Influenza A Amplification NEGATIVE Normal Negati ve 1 Influenza B Amplification NEGATIVE Normal Negative 2 RSV Amplification NEGATIVE Normal Negative 3 Sars Covid-19 Amplification NEGATIVE Normal Negative 4 CBC With Differential 02/23/2021 [place] [address] [place] [address] [phone] White Blood Count 10.8 10 High 4.0-10.0 [...] 36.0-66.0 Lymph % 19.9 % Low 24.0-44.0 Stephens % 9.5 % High 2.0-8.0 Eos % 2.3 % Normal 0.0-3.0 Baso % 1.1 % High 0.0-1.0 Immature Granulocyte % 0.4 % Normal 0-3.0 Nucleated Red Blood Cell % 0.0 % Normal 0-0 Neutrophils # 7.2 10 Normal 1.5-8.5 Lymph # 2.1 10 Normal 1.5-5.0 Stephens # 1.0 10 High 0.0-0.8 Eos # 0.3 10 Normal 0.0-0.5 Baso # 0.1 10 Normal 0.0-0.2 Cardiac Marker Panel 02/23/2021 [facility] enter [address] [place] [address] [phone] CPK Creatine Phosphokinase 102 U/L Normal 39-30 8 CK-MB Value Mass 3.3 NG/ML Normal <3.6 MB/CK Relative Index 3.24 Normal < Or =4 5 Troponin I < 0.02 NG/ML Normal < 0.10 6 Liver Profile 02/23/2021 [facility] nter [address] [place] [address] [phone] Ast/Sgot 24 U/L Normal 7-37 Alt/SGPT 32 U/L Normal 12-78 Alkaline Phosphatase 67 U/L Normal 45-117 Bilirubin,Total 0.9 mg/dL Normal 0.2-1.0 Bilirubin,Direct 0.3 mg/dL High 0.0-0.2 Total Protein 7.2 GM/DL Normal 6.4-8.2 Albumin 3.1 GM/DL Low 3.2-5.2 Albumin/Globulin Ratio 0.8 Normal Laboratory test finding 02/23/2021 [facility] [address] [place] [address] [phone] NT-Pro BNP 303 pg/mL High <125 Lipase 249 U/L Normal 73-393 Thyroid Stimulating Hormone 1.080 uIU/ML Normal 0.358-3.740 Free T4 1.07 ng/dL Normal 0.76-1.46 Laboratory test finding 02/23/2021 [facility] [address] [place] [address] [phone] iSTAT Troponin 0.00 NG/ML Normal 0.00-0.08 Istat Chem8+ Panel 02/23/2021 [facility] nter [address] [place] [address] [phone] iSTAT HCT 37.0 % Low 38.0-51.0 iSTAT Glucose 145 mg/dL High 70-105 iSTAT Sodium 138 mEq/L Normal 136-145 iSTAT Potassium 4.3 mEq/L Normal 3.5-5.1 iSTAT CA++ 5.2 mg/dL Normal 4.5-5.3 iSTAT Chloride 100 mEq/L Normal 98-109 iSTAT Co2 27.0 MM/L Normal 23.0-27.0 iSTAT BUN 20 mg/dL Normal 8-26 iSTAT Creatinine 0.8 mg/dL Normal 0.6-1.3 Laboratory test finding 02/23/2021 [facility] [address] [place] [address] [phone] iSTAT Troponin 0.01 NG/ML Normal 0.00-0.08 A1c 01/31/2021 [facility] , Reproduction Specialist: Dr Martín [place] [address] [phone] Hba1c 6.9 % High <5.7 7 Est Avg Glucose 151 mg/dL High 60 - 110 Comprehensive Chem Profile 01/31/2021 [facility] Reproduction Specialist: Dr Martín [place] [address] [phone] Glucose 75 mg/dL 74 - 99 8 [...] mL/min >60 9 Laboratory test finding 01/31/2021 [facility] Reproduction Specialist: Dr Martín [place] [address] [phone] Magnesium 1.6 mg/dL Low 1.8 - 2.4 Complete Blood Count 11/10/2020 [facility] Reproduction Specialist: Dr Martín [place] [address] [phone] WBC 9.0 x10*3/UL 4.1 - 10.9 RBC [...] 6.6 x10*3/UL 2.0 - 7.8 A1c 11/10/2020 [facility] Reproduction Specialist: [place] [address] [phone] Hba1c 6.7 % High <5.7 10 Est Avg Glucose 146 mg/dL High 60 - 110 Comprehensive Chem Profile 11/10/2020 [facility] Reproduction Specialist: Dr Martín Montanez [place], [place] [address] [phone] Glucose 104 mg/dL High 74 - 99 [...] mL/min >60 12 Complete Blood Count 09/08/2020 [facility] Reproduction Specialist: Dr Martín Montanez [place], [place] [address] [phone] WBC 10.3 x10*3/UL 4.1 - 10.9 RBC [...] 7.4 x10*3/UL 2.0 - 7.8 A1c 09/08/2020 [facility] , Reproduction Specialist: Dr Martín Montanez [place], [place] [address] [phone] Hba1c 6.7 % High <5.7 13 Est Avg Glucose 146 mg/dL High 60 - 110 Comprehensive Chem Profile 09/08/2020 [facility], Reproduction Specialist: Dr Martín [place] [address] [phone] Glucose 113 mg/dL High 74 - 99 [...] pathogens. DISCLAIMER: Testing was performed using the [employer] SARS-CoV-2 test. This test was developed and its performance characteristics determined by [employer]. This test has not been FDA cleared [...] 6 Troponin I Reference Interva l for [employer] [place] LOCI: 99th Percentile= 0.00-0.045 ng/ml Risk Stratification: [...] LITTLE GFR LEFT ESRD GFR <15 ON MARINE DIESEL TECHNICIAN 10 Lab Result Notes: Pre-Diabetes 5.7 - [...] LITTLE GFR LEFT ESRD GFR <15 ON MARINE DIESEL TECHNICIAN 13 Lab Result Notes: Pre-Diabetes 5.7 - [...] LITTLE GFR LEFT ESRD GFR <15 ON MARINE DIESEL TECHNICIAN Procedures Date Code Description Status 01/31/2021 35691 Office/Outpatient Established Mo d MDM 30-39 Min Completed 01/31/2021 88185 EKG/Interpretation & Report Comp leted 11/10/2020 94174 Office/Outpatient Established Mo d MDM 30-39 Min Completed 11/09/2020 [id number] Colonoscopy Completed 09/08/2020 31874 Trans Care SRV W/I 14D Of DC, Co mm W/I 2 Dys Med Rec Completed 01/21/2019 [id number] Colonoscopy Completed 12/10/2018 [id number] Colonoscopy Completed 11/13/2018 [id number] Diabetic Retinal Eye Exam [facility] 06/22/2015 [id number] Diabetic Retinal Eye Exam Comple [facility] Medical Devices Description No Information Available Encounters Type Date Location Provider Dx Diagnosis Office Visit 01/31/2021 1:40p [facility] 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 Nader Goldman M.D. 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 I48.91 Unspecified atrial fibrillation Z79.01 jail (current) use of a nticoagulants Z91.14 Patient's [...] Unspecified atrial fibrillation Milton Montanez, 01/31/2021 Z79.01 jail (current) use of antic oagulants Milton Montanez, 01/31/2021 Z79.84 jail (current) use of oral hypoglycemic drugs Milton Montanez, 01/31/2021 E11.9 Type 2 diabetes mellitus without complications Milton Montanez, 01/31/2021 I10 Essential (primary) hypertension Milton Montanez, 01/31/2021 G47.33 Obstructive sleep apnea (adult) (pediatric) Milton Montanez, 11/10/2020 E78.5 Hyperlipidemia, unspecified Aamir Goldman M.D. 11/10/2020 I48.91 Unspecified atrial fibrillation Nader Goldman M.D. 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 11/10/2020 Z91.[address] noncompliance [facility] medication regimen Nader Goldman M.D. 09/08/2020 I48.91 Unspecified atrial fibrillation Nader Goldman M.D. 09/08/2020 Z79.01 jail (current) use of antic oagulants Nader Goldman M.D. 09/08/2020 Z91.14 [address] noncompliance [facility] medication regimen Nader Goldman M.D. 09/08/2020 [...] 2:40 pm - Milton Montanez DO at [facility] * 03/31/2021 2:30 pm - Nader Goldman M.D. at [facility] 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 We will continue to monitor.3. 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
--- OUTSIDE RECORDS SUMMARY | 2021-03-14 14:10 | CCD ---
Continuity of Care Document (CCD) Created on: 02/26/2021 [employer] External Reference #: [id number] : [id number] Sex: Male Author Author Dipak CALVO M.D. Organization Unknown Address [address] [address] Phone [phone] Care Team Providers Care Certified Physician'S Assistant Name Role Phone Nader Calvo MD AUTM [phone] [facility] Radiology AUTM [phone] Problems Active Problems Provider Date Hemorrhoids Onset: 02/05/2011 Posterior rhinorrhea Onset: 02/05/2011 Abdominal pain Onset: 09/23/2009 Degenerative joint disease involving multiple joints Onset: 06/18/2009 Hyperlipidemia Onset: Hypertensive disorder Onset: Obstructive sleep apnea syndrome Onset: Gastroesophageal reflux disease Onset: 0 Alcoholic fatty liver Onset: Essential hypertension Nader Calvo M.D. Onset: 5 Restless legs Nader Calvo M.D. Onset: 03/23/2015 Hyperlipidemia Nader Calvo M.D. Onset: 03/23/2015 Noncompliance with treatment Nader Calvo M.D. Onset: Abnormal glucose level Nader Calvo M.D. Onset: 5 Alcohol-induced mood disorder Nader Calvo M.D. Onset: Social History Type Date Description [...] 1 by mouth every day 30tabs Nader F. White, M.D. 09/01/2020 Ropinirole HCL 4mg Tablets take one tablet by mouth at bedtime 30tajanusz Calvo M.D. 021 Metformin HCL 1000mg Tablets take one tablet by mouth twice times a day 180tajanusz Calvo M.D. 09/01/2020 Magnesium Gluconate 500mg Tablets one daily 90tabs Nader Calvo M.D. 09/01/2020 Benzonatate 200mg Capsules Take One Capsule By Mouth Three Times A Day as Needed For Cough 60caps R05 Martín Montanez MD 08/18/2019 Cetirizine HCL 10mg Tablets one tab by mouth daily at bed time (only as needed) 30tabs J30.9 Martín Montanez MD 01/17/2018 Lancet Device With Ejector Misc use as directed 1units Nader Calvo M.D. 06/20/2015 Lancets 30G 30G Misc test twice a day and as needed e11.9 200unzana Calvo M.D. 06/20/2015 Glucometer Misc use for evaluation of blood glucose as directed. dx e11.9 uncontrolled 1unzana E11.65 Nader Calvo M.D. 06/17/2015 Test Strips For Glucose Meter T2DM any brand to test twice a day as directed dxe11.9 200units E11.65 Nader Calvo M.D. 06/17/2015 Hydrochlorothiazide 25mg Tablets 1 by mouth every day 90tajanusz Calvo M.D. 03/23/[address] 1 by mouth every day 90dezs Nader Calvo M.D. 01/03/2015 Lisinopril 10mg Tablets 1/2 tab richard 90ana Calvo M.D. 03/03/2014 Zoloft 50mg Tablets 1 tablet, 1 time per day, for 90 days 90tajanusz Calvo M.D. Eliquis 5mg Tablets take one tablet by mouth twice a day 180tajanusz Calvo M.D. 0 Medications Administered in Office Medication SIG Qnty Indications Ordering Provider Date Immunization Adminstration,1 Vaccine/Tox oid Injection Nader Calvo M.D. 020 Immunizations CPT Code Status Date Vaccine Lot # 23378 Given 01/08/2020 Pneumovax 23 [id number] Given 03/26/2012 Influenza Virus Vaccine 32724 Refused 05/13/2018 Influenza Virus Vaccine, Quadrivalent (Cciiv4), Derived From Cell 42736 Refused 03/26/2012 Adacel- Tetanus Diphtheria P ertussis [...] H/L Range Note Laboratory test finding 02/23/2021 [facility] [address] [place] [address] [phone] iSTAT Troponin 0.00 NG/ML Normal 0.00-0.08 Influenza A/B RSV Covid Amp 02/23/2021 [facility] [address] [place], [place] [address] [phone] Influenza A Amplification NEGATIVE Normal Negati ve 1 Influenza B Amplification NEGATIVE Normal Negative 2 RSV Amplification NEGATIVE Normal Negative 3 Sars Covid-19 Amplification NEGATIVE Normal Negative 4 CBC With Differential 02/23/2021 [facility] [address] [place], [place] [id number] [phone] White Blood Count 10.8 10 High 4.0-10.0 [...] 36.0-66.0 Lymph % 19.9 % Low 24.0-44.0 Hyde % 9.5 % High 2.0-8.0 Eos % 2.3 % Normal 0.0-3.0 Baso % 1.1 % High 0.0-1.0 Immature Granulocyte % 0.4 % Normal 0-3.0 Nucleated Red Blood Cell % 0.0 % Normal 0-0 Neutrophils # 7.2 10 Normal 1.5-8.5 Lymph # 2.1 10 Normal 1.5-5.0 Hyde # 1.0 10 High 0.0-0.8 Eos # 0.3 10 Normal 0.0-0.5 Baso # 0.1 10 Normal 0.0-0.2 Cardiac Marker Panel 02/23/2021 [facility] enter [address] [place] [address] [phone] CPK Creatine Phosphokinase 102 U/L Normal 39-30 8 CK-MB Value Mass 3.3 NG/ML Normal <3.6 MB/CK Relative Index 3.24 Normal < Or =4 5 Troponin I < 0.02 NG/ML Normal < 0.10 6 Liver Profile 02/23/2021 [facility] nter [address] [place] [address] [phone] Ast/Sgot 24 U/L Normal 7-37 Alt/SGPT 32 U/L Normal 12-78 Alkaline Phosphatase 67 U/L Normal 45-117 Bilirubin,Total 0.9 mg/dL Normal 0.2-1.0 Bilirubin,Direct 0.3 mg/dL High 0.0-0.2 Total Protein 7.2 GM/DL Normal 6.4-8.2 Albumin 3.1 GM/DL Low 3.2-5.2 Albumin/Globulin Ratio 0.8 Normal Laboratory test finding 02/23/2021 [facility] [address] [place] [address] [phone] NT-Pro BNP 303 pg/mL High <125 Lipase 249 U/L Normal 73-393 Thyroid Stimulating Hormone 1.080 uIU/ML Normal 0.358-3.740 Free T4 1.07 ng/dL Normal 0.76-1.46 Laboratory test finding 02/23/2021 [facility] [address] [place] [address] [phone] iSTAT Troponin 0.00 NG/ML Normal 0.00-0.08 Istat Chem8+ Panel 02/23/2021 [facility] nter [address] [place] [address] [phone] iSTAT HCT 37.0 % Low 38.0-51.0 iSTAT Glucose 145 mg/dL High 70-105 iSTAT Sodium 138 mEq/L Normal 136-145 iSTAT Potassium 4.3 mEq/L Normal 3.5-5.1 iSTAT CA++ 5.2 mg/dL Normal 4.5-5.3 iSTAT Chloride 100 mEq/L Normal 98-109 iSTAT Co2 27.0 MM/L Normal 23.0-27.0 iSTAT BUN 20 mg/dL Normal 8-26 iSTAT Creatinine 0.8 mg/dL Normal 0.6-1.3 Laboratory test finding 02/23/2021 [place] 6[address]2837 [phone] iSTAT Troponin 0.01 NG/ML Normal 0.00-0.08 A1c 01/31/2021 [facility] Account Strategist: Dr Martín [place] [address] [phone] Hba1c 6.9 % High <5.7 7 Est Avg Glucose 151 mg/dL High 60 - 110 Comprehensive Chem Profile 01/31/2021 [facility] Account Strategist: Dr [place]ín [place] [address] [phone] Glucose 75 mg/dL 74 - 99 8 [...] mL/min >60 9 Laboratory test finding 01/31/2021 [facility] Account Strategist: Dr Martín [place] [address] [phone] Magnesium 1.6 mg/dL Low 1.8 - 2.4 Complete Blood Count 11/10/2020 [facility] Account Strategist: [place] [address] [phone] WBC 9.0 x10*3/UL 4.1 - 10.9 RBC [...] 6.6 x10*3/UL 2.0 - 7.8 A1c 11/10/2020 [facility] Account Strategist: [place] [address] [phone] Hba1c 6.7 % High <5.7 10 Est Avg Glucose 146 mg/dL High 60 - 110 Comprehensive Chem Profile 11/10/2020 [facility] Account Strategist: Dr Martín [place] [address] [phone] Glucose 104 mg/dL High 74 - 99 [...] mL/min >60 12 Complete Blood Count 09/08/2020 [facility] [employer] [facility] shukri gordon Account Strategist: Dr Martín [place] [address] [phone] WBC 10.3 x10*3/UL 4.1 - 10.9 RBC [...] 7.4 x10*3/UL 2.0 - 7.8 A1c 09/08/2020 [facility] , Account Strategist: Dr Martín Montanez [place], [place] [address] [phone] Hba1c 6.7 % High <5.7 13 Est Avg Glucose 146 mg/dL High 60 - 110 Comprehensive Chem Profile 09/08/2020 [facility] Account Strategist: Dr Martín Doole[place]ogg [place], [place] [address] [phone] Glucose 113 mg/dL High 74 - 99 [...] pathogens. DISCLAIMER: Testing was performed using the [employer] SARS-CoV-2 test. This test was developed and its performance characteristics determined by [employer] This test has not been FDA cleared [...] 6 Troponin I Reference Interva l for [employer] LOCI: 99th Percentile= 0.00-0.045 ng/ml Risk Stratification: [...] LITTLE GFR LEFT ESRD GFR <15 ON ELECTRIC DISTRIBUTION ENGINEER 10 Lab Result Notes: Pre-Diabetes 5.7 - [...] LITTLE GFR LEFT ESRD GFR <15 ON ELECTRIC DISTRIBUTION ENGINEER 13 Lab Result Notes: Pre-Diabetes 5.7 - [...] LITTLE GFR LEFT ESRD GFR <15 ON ELECTRIC DISTRIBUTION ENGINEER Procedures Date Code Description Status 01/31/2021 80578 Office/Outpatient Established Mo d MDM 30-39 Min Completed 01/31/2021 58633 EKG/Interpretation & Report Comp leted 11/10/2020 90169 Office/Outpatient Established Mo d MDM 30-39 Min Completed 11/09/2020 [id number] Colonoscopy Completed 09/08/2020 81704 Trans Care SRV W/I 14D Of DC, Co mm W/I 2 Dys Med Rec Completed 01/21/2019 [id number] Colonoscopy Completed 12/10/2018 [id number] Colonoscopy Completed 11/13/2018 [id number] Diabetic Retinal Eye Exam [facility]ple [facility] 06/22/2015 [id number] Diabetic Retinal Eye Exam Comple [facility] Medical Devices Description No Information Available Encounters Type Date Location Provider Dx Diagnosis Office Visit 01/31/2021 1:40p [facility] Crystal Montanez DO Z01.810 Encounter for preprocedural cardiovascular examination M25.511 Pain in right shoulder I48.91 Unspecified atrial fibrillat ion Z79.01 detention (current) use of a nticoagulants Z79.84 detention (current) use of o ral hypoglycemic drugs E11.9 Type 2 diabetes mellitus wit hout complications I10 Essential (primary) hyperten margie G47.33 Obstructive sleep apnea (nancy lt) (pediatric) Office Visit 11/10/2020 11:30a [facility] Nader Calvo M.D. 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.01 detention (current) use of a nticoagulants E11.9 Type [...] with medication regimen Office Visit 09/08/2020 10:00a [facility] Nader Calvo M.D. I48.91 Unspecified atrial fibrillation Z79.01 detention (current) use of a nticoagulants Z91.14 Patient's [...] Unspecified atrial fibrillation Milton Montanez, 01/31/2021 Z79.01 detention (current) use of antic oagulants Milton Montanez, 01/31/2021 Z79.84 detention (current) use of oral hypoglycemic drugs Milton Montanez, 01/31/2021 E11.9 Type 2 diabetes mellitus without complications Milton Montanez, 01/31/2021 I10 Essential (primary) hypertension Milton Montanez, 01/31/2021 G47.33 Obstructive sleep apnea (adult) (pediatric) Milton Montanez, 11/10/2020 E78.5 Hyperlipidemia, unspecified Aamir Calvo M.D. 11/10/2020 I48.91 Unspecified atrial fibrillation Nader Calvo M.D. 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 11/10/2020 E11.9 Type 2 diabetes mellitus without complications Nader Calvo M.D. 11/10/2020 K70.9 Alcoholic liver disease, unspeci fied Nader Calvo M.D. 11/10/2020 F34.1 Dysthymic disorder Nader combs M.D. 11/10/2020 G47.33 Obstructive sleep apnea (adult) (pediatric) Nader Calvo M.D. 11/10/2020 K21.9 Gastro-esophageal reflux disease without esophagitis Nader Calvo M.D. 11/10/2020 G25.81 Restless legs syndrome Nader Calvo M.D. 11/10/2020 I10 Essential (primary) hypertension Nader Calvo M.D. 11/10/2020 Z85.038 Personal history of other malignant neoplasm of large intestine Nader Calvo M.D. 11/10/2020 Z91.14 Patient's other noncompliance [facility] medication regimen Nader Calvo M.D. 09/08/2020 I48.91 Unspecified atrial fibrillation Nader Calvo M.D. 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 09/08/2020 Z91.14 Patient's other noncompliance [facility] medication regimen Nader Calvo M.D. 09/08/2020 E11.9 Type 2 diabetes mellitus without complications Nader Calvo M.D. 09/08/2020 K70.9 Alcoholic liver disease, unspeci fied Nader Calvo M.D. 09/08/2020 F34.1 Dysthymic disorder Nader combs M.D. 09/08/2020 G47.33 Obstructive sleep apnea (adult) (pediatric) Nader Calvo M.D. 09/08/2020 K21.9 Gastro-esophageal reflux disease without esophagitis Nader Calvo M.D. 09/08/2020 Z85.038 Personal history of other malignant neoplasm of large intestine Nader Calvo M.D. Plan of Treatment Future Appointment(s):* 03/01/2021 2:40 pm - Milton Montanez DO at [facility] * 03/31/2021 2:30 pm - [facility] 11/10/2020 - Nader Calvo M.D.* E78.5 Hyperlipidemia, unspecified * I48.91 Unspecified [...]
--- OUTSIDE RECORDS SUMMARY | 2021-03-14 14:11 | CCD | Continuity of Care Document ---
Author Author Dipak SANCHEZ Organization Unknown Address [address] [address] Phone [phone] Care Team Providers Care Gamma Facilities Operator Name Role Phone Nader Goldman MD AUTM [phone] [facility] Radiology AUTM [phone] Problems Active Problems Provider Date Hemorrhoids Onset: [...] Use Start: Unknown Patient has never smoked Allergies, Adverse Reactions, Alerts Description No Known Drug Allergies Medications Active Medications SIG Qnty Indications Ordering Provide r Date Metoprolol Tartrate 25mg Tablets 3 tabs by mouth twice a day 180tabs Milton Sanchez DO 09/07/ 2021 Atorvastatin Calcium 20mg Tablets 1 by mouth [...] Capsules DR 1 by mouth every day 90elsi Goldman M.D. 01/03/2015 Lisinopril 10mg Tablets 1/2 tab richard 90ana Goldman M.D. 03/03/2014 Zoloft 50mg Tablets 1 tablet, 1 time per day, for 90 days 90tajanusz Goldman M.D. Eliquis 5mg Tablets take one tablet by mouth twice a day 180tajanusz Goldman M.D. 0 Medications Administered in Office Medication SIG Qnty Indications Ordering Provider Date Immunization Adminstration,1 Vaccine/Tox oid Injection Nader Goldman M.D. 020 Immunizations CPT Code Status Date Vaccine Lot # [id number] Given 01/08/2020 Pneumovax 23 [id number] Given 03/26/2012 Influenza Virus Vaccine 93480 Refused 05/13/2018 Influenza Virus Vaccine, Quadrivalent (Cciiv4), Derived From Cell [id number] Refused 03/26/2012 Adacel- Tetanus Diphtheria P ertussis (Age64 & Under) Vital Signs Date Vital Result Comment 01/31/2021 [...] Result H/L Range Note Laboratory test finding 01/31/2021 [facility] shuk[facility] bush Circus Agent: [place]ín [place] [address] [phone] Magnesium 1.6 mg/dL Low 1.8 - 2.4 Comprehensive Chem Profile 01/31/2021 [facility] Circus Agent: Dr Martín [place] [address] [phone] Glucose 75 mg/dL 74 - 99 1 BUN 14 mg/dL 7 - 18 Creatinine [...] >60 GFR >= 60 mL/min >60 2 A1c 01/31/2021 [facility] , Circus Agent: Dr Martín [place] [address] [phone] Hba1c 6.9 % High <5.7 3 Est Avg Glucose 151 mg/dL High 60 - 110 Complete Blood Count 11/10/2020 [facility] Circus Agent: Dr Martín [place] [address] [phone] WBC 9.0 x10*3/UL 4.1 - 10.9 RBC [...] 6.6 x10*3/UL 2.0 - 7.8 A1c 11/10/2020 [facility] Circus Agent: Dr [place]ín [place] [address] [phone] Hba1c 6.7 % High <5.7 4 Est Avg Glucose 146 mg/dL High 60 - 110 Comprehensive Chem Profile 11/10/2020 [facility], Circus Agent: Dr Martín [place] [address] [phone] Glucose 104 mg/dL High 74 - 99 5 BUN 14 mg/dL 7 - 18 Creatinine [...] >60 GFR >= 60 mL/min >60 6 A1c 09/08/2020 [facility] , Circus Agent: Dr Martín [place] [address] [phone] Hba1c 6.7 % High <5.7 7 Est Avg Glucose 146 mg/dL High 60 - 110 Comprehensive Chem Profile 09/08/2020 [facility] Circus Agent: Dr Martín [place] [address] [phone] Glucose 113 mg/dL High 74 - 99 8 BUN 14 mg/dL [...] 60 mL/min >60 9 Complete Blood Count 09/08/2020 [facility] Circus Agent: Dr Martín [place] [address] [phone] WBC 10.3 x10*3/UL 4.1 - 10.9 RBC [...] Neut # 7.4 x10*3/UL 2.0 - 7.8 Influenza A/B RSV Covid Amp 08/23/[address] [address] [phone] Influenza A Amplification NEGATIVE Normal Negati ve 10 Influenza B Amplification NEGATIVE Normal Negative 11 RSV Amplification NEGATIVE Normal Negative 12 Sars Covid-19 Amplification NEGATIVE Normal Negative 13 Laboratory test finding 08/23/2020 [facility] [address] [place] [address] [phone] iSTAT Troponin 0.01 NG/ML Normal 0.00-0.08 Istat Chem8+ Panel 08/23/2020 [facility] nter [address] [place] [address] [phone] iSTAT HCT 45.0 % Normal 38.0-51.0 iSTAT Glucose 158 mg/dL High 70-105 iSTAT Sodium 139 mEq/L Normal 136-145 iSTAT Potassium 4.4 mEq/L Normal 3.5-5.1 iSTAT CA++ 4.6 mg/dL Normal 4.5-5.3 iSTAT Chloride 101 mEq/L Normal 98-109 iSTAT Co2 31.0 MM/L High 23.0-27.0 iSTAT BUN 10 mg/dL Normal 8-26 iSTAT Creatinine 0.6 mg/dL Normal 0.6-1.3 CBC With Differential 08/23/2020 [facility] [address] [place] [address] [phone] White Blood Count 7.8 10 Normal 4.0-10.0 Red Blood Count 4.28 10 Low 4.30-6.10 Hemoglobin 14.3 g/dL Normal 13.5-17.5 Hematocrit 42.5 % Normal 42.0-52.0 Mean Corpuscular Volume 99.3 fl High 80.0-96.0 Mean Corpuscular Hemoglobin 33.4 pg High 27.0-33.0 Mean Corpuscular HGB Conc 33.6 g/dL Normal 32.0-36.5 Red Cell Distribution Width 12.3 % Normal 11.5-14.5 Platelet Count, Automated 164 10 Normal 150-450 Neutrophils % 62.1 % Normal 36.0-66.0 Lymph % 23.1 % Low 24.0-44.0 [place] % 10.3 % High 2.0-8.0 Eos % 2.6 % Normal 0.0-3.0 Baso % 1.4 % High 0.0-1.0 Immature Granulocyte % 0.5 % Normal 0-3.0 Nucleated Red Blood Cell % 0.0 % Normal 0-0 Neutrophils # 4.9 10 Normal 1.5-8.5 Lymph # 1.8 10 Normal 1.5-5.0 [place] # 0.8 10 Normal 0.0-0.8 Eos # 0.2 10 Normal 0.0-0.5 Baso # 0.1 10 Normal 0.0-0.2 Prothrombin Time/Inr 08/23/2020 [facility] enter [address] [place], [place] [id number] [phone] Prothrombin Time 16.2 seconds High 12.5-14.3 Inr 1.27 Normal 14 Liver Profile 08/23/2020 [facility] nter [address] [place] [address] [phone] Ast/Sgot 42 U/L High 7-37 Alt/SGPT 33 U/L Normal 12-78 Alkaline Phosphatase 90 U/L Normal 45-117 Bilirubin,Total 1.3 mg/dL High 0.2-1.0 Bilirubin,Direct 0.6 mg/dL High 0.0-0.2 Total Protein 7.7 GM/DL Normal 6.4-8.2 Albumin 3.1 GM/DL Low 3.2-5.2 Albumin/Globulin Ratio 0.7 Normal Laboratory test finding 08/23/2020 [facility] [address] [place], [place] [address] [phone] Magnesium Level 1.6 mg/dL Low 1.8-2.4 NT-Pro BNP 285 pg/mL High <125 Thyroid Stimulating Hormone 0.774 uIU/ML Normal 0.358-3.740 1 100-125 mg/dL PRE-DIABET ES/FASTING >126 mg/dL DIABETES/FASTING 2 CHRONIC KIDNEY DISEASE STAGI NG PER NKF STAGE I & II GFR >= 60 NORMAL TO MILDLY DECREASED STAGE III GFR 30-59 MODERATELY DECREASED STAGE IV GFR 15-29 SEVERELY DECREASED STAGE V GFR <15 VERY LITTLE GFR LEFT ESRD GFR <15 ON SORT MANAGER 3 Lab Result Notes: Pre-Diabetes 5.7 - 6.4 % Diabetes = or > 6.5% 4 Lab Result Notes: Pre-Diabetes 5.7 - 6.4 % Diabetes = or > 6.5% 5 100-125 mg/dL PRE-DIABET ES/FASTING >126 mg/dL DIABETES/FASTING 6 CHRONIC KIDNEY DISEASE STAGI NG PER NKF STAGE I & II GFR >= 60 NORMAL TO MILDLY DECREASED STAGE III GFR 30-59 MODERATELY DECREASED STAGE IV GFR 15-29 SEVERELY DECREASED STAGE V GFR <15 VERY LITTLE GFR LEFT ESRD GFR <15 ON SORT MANAGER 7 Lab Result Notes: Pre-Diabetes 5.7 - [...] LITTLE GFR LEFT ESRD GFR <15 ON SORT MANAGER 10 Negative results do not prec lude [...] treatment or other patient management decisions. 13 A false negative result may occur if [...] pathogens. DISCLAIMER: Testing was performed using the [employer] SARS-CoV-2 test. This test was developed and its performance characteristics determined by [employer]. This test has not been FDA cleared [...] the authorization is terminated or revoked sooner. 14 THERAPUTIC HUMAN INR VALUES INDICATIONS NORMAL RANGES PROPHYLAXIS/TREATMENT OF: VENOUS THROMBOSIS 2.0-3.0 PULMONARY EMBOLISM 2.0-3.0 PREVENTION OF SYSTEMIC EMBOLISM FROM: TISSUE HEART VALVES 2.0-3.0 ACUTE MYOCARDIAL INFARCTION 2.0-3.0 VALVULAR HEART DISEASE 2.0-3.0 ATRIAL FIBRILLATION 2.0-3.0 MECHANICAL VALVES(HIGH RISK) 2.5-3.5 RECURRENT MYOCARDIAL INFARCTION 2.5-3.5 Procedures Date Code Description Status 01/31/2021 94445 Office/Outpatient Established Mo d MDM 30-39 Min Completed 01/31/2021 77466 EKG/Interpretation & Report Comp leted 11/10/2020 75606 Office/Outpatient Established Mo d MDM 30-39 Min Completed 11/09/2020 [id number] Colonoscopy Completed 09/08/2020 74772 Trans Care SRV W/I 14D Of DC, Co mm W/I 2 Dys Med Rec Completed 01/21/2019 [id number] Colonoscopy Completed 12/10/2018 [id number] Colonoscopy Completed 11/13/2018 [id number] Diabetic Retinal Eye Exam [facility] 06/22/2015 [id number] Diabetic Retinal Eye Exam Comple [facility] Medical Devices Description No Information Available Encounters Type Date Location Provider Dx Diagnosis Office Visit 01/31/2021 1:40p [facility] [place] Z01.810 Encounter for preprocedural cardiovascular examination M25.511 Pain in right shoulder I48.91 Unspecified atrial fibrillat ion Z79.01 long-term (current) use of a nticoagulants 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 E78.5 Hyperlipidemia, unspecified I48.91 [...] with medication regimen Office Visit 09/08/2020 10:00a [facility] PKaren Goldman M.D. 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 11/10/2020 I48.91 Unspecified atrial fibrillation Nader Goldman M.D. 11/10/2020 Z79.01 long-term (current) use of antic oagulants Nader Goldman [...] atrial fibrillation Nader Goldman M.D. 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 09/08/2020 Z91.14 Patient's other noncompliance [facility] medication regimen Nader Goldman M.D. 09/08/2020 E11.9 [...] Future Appointment(s):* 03/01/2021 2:40 pm - Milton Sanchez DO at [facility] * 03/31/2021 2:30 pm - Nader Goldman M.D. at [facility] 11/10/2020 - Nader Goldman M.D.* E78.5 Hyperlipidemia, unspecified * I48.91 Unspecified atrial fibrillation * Z79.01 long-term (current) use of anticoagulants * E11.9 Type [...] is anticoagulated. We will continue to monitor.3. intermediate teacher (current) use of anticoagulants: Doing well with [...]
--- OUTSIDE RECORDS SUMMARY | 2021-03-14 14:11 | CCD | Continuity of Care Document ---
Author Author Dipak CID MD Organization Unknown Address [address] [place] [address] , [facility] [address] [place] [address] Phone [phone] Care Team Providers Care Renovation Plant Supervisor Name Role Phone Nader Goldman M.D. AUTM [phone] AUTM Unavailable Problems Active Problems Provider Date [...] rectum twice a day as needed 12units cOtavio Madden NP 02/04/2019 Metformin HCL 500mg Tablets [...] CPT Code Status Date Vaccine Lot # [id number] Given 02/13/2010 Influenza Virus Split 3 Yrs And Above For Intramuscular Use Vital Signs Date Vital Result Comment 01/17/2021 1:58pm Body Temperature 97.9 F 12/15/2020 10:56am Body Temperature 98.7 F Results Test Acquired Date Facility Test Result H/L Range Note Laboratory test finding 11/09/2020 [facility] [address] [place] [address] [phone] Pathology Request For Service (SEE NOTE) 1 [...] 1001 Procedures Date Code Description Status 02/08/2021 33552 Surgical Arthroscopy Shoulder W/ Rotator Cuff RPR Completed 02/08/2021 79753 Surgical Arthroscopy Halina W/Corac oacrm Ligm RLS Completed 02/08/2021 71633 Surgical Arthroscopy Shoulder DS TL Claviculc Completed 01/17/2021 76030 Office/Outpatient Established Mo d MDM 30-39 Min Completed 12/20/2020 90412 Office/Outpatient Established Lo w MDM 20-29 Min Completed 12/15/2020 54502 Office/Outpatient Established Mo d MDM 30-39 Min Completed 12/15/202085494 Inject/Drain Arthrocentesis Kylee r Joint/Bursa/Ganglion Cyst Completed 11/09/2020 03782 Colonoscopy Flexible Proximal To Splenic Flexure W/Biopsy Single/ Completed 10/07/2020 35503 Office/Outpatient Established Lo w MDM 20-29 Min Completed 09/22/2020 79069 Office/Outpatient New Moderate M DM 45-59 Minutes Completed Medical Devices Description No Information Available Encounters Type Date Location Provider Dx Diagnosis Office Visit 02/21/2021 9:15a [facility] Marek Cid MD Z47.89 Encounter for other orthopedic aftercare Office Visit 01/17/2021 2:00p [facility] Marek Cid MD S46.011A Strain of musc/tend the rotator cuff of right shoulder, init Office Visit 12/20/2020 9:15a [facility] Marek Cid MD S46.011D Strain of musc/tend the rotator cuff of right shoulder, subs Office Visit 12/15/2020 10:45a [facility] Marek Cid MD S46.011D Strain of musc/tend the rotator cuff of right shoulder, subs S46.111D Strain of musc/fasc/tend storm g hd bicep, right arm, subs M75.41 Impingement syndrome of righ t shoulder Office Visit 10/07/2020 2:15p [facility] Marek Cid MD S46.111A Strain of musc/fasc/tend long hd bicep, right arm, init M75.41 Impingement syndrome of righ t shoulder S46.011D Strain of musc/tend the rota tor cuff of right shoulder, subs Office Visit 09/22/2020 9:00a [facility] Marek Cid MD S46.011A Strain of [...] intestine Fco Cates MD Plan of Treatment 02/21/2021 - Marek Cid MD* Z47.89 Encounter for other orthopedic aftercare * New Therapy:* Functional Status Description No Information Available Mental Status Description No Information Available Referrals Description No Information Available
--- OUTSIDE RECORDS SUMMARY | 2021-03-14 14:11 | CCD | Continuity of Care Document ---
Author Author Dipak SANCHEZ Organization Unknown Address [address] [address] Phone [phone] Care Team Providers Care Emergency Nurse Name Role Phone Nader Goldman MD AUTM [phone] [facility] Radiology AUTM [phone] Problems Active Problems Provider Date Hemorrhoids Onset: [...] CPT Code Status Date Vaccine Lot # 01088 Given 01/08/2020 Pneumovax 23 [id number] Given 03/26/2012 Influenza Virus Vaccine 07648 Refused 05/13/2018 Influenza Virus Vaccine, Quadrivalent (Cciiv4), Derived From Cell 94959 Refused 03/26/2012 Adacel- Tetanus Diphtheria P ertussis [...] H/L Range Note Laboratory test finding 01/31/2021 [facility] [employer] [employer] shukri bush Phone Banker: Dr Martín [place] [address] [phone] Magnesium 1.6 mg/dL Low 1.8 - 2.4 Comprehensive Chem Profile 01/31/2021 [facility] Phone Banker: Dr Martín [place] [address] [phone] Glucose 75 mg/dL 74 - 99 1 [...] >= 60 mL/min >60 2 A1c 01/31/2021 [facility] , Phone Banker: Dr Martín [place] [address] [phone] Hba1c 6.9 % High <5.7 3 Est Avg Glucose 151 mg/dL High 60 - 110 Complete Blood Count 11/10/2020 [facility] Phone Banker: Dr Martín [place] [address] [phone] WBC 9.0 x10*3/UL 4.1 - 10.9 RBC [...] 6.6 x10*3/UL 2.0 - 7.8 A1c 11/10/2020 [facility] Phone Banker: Dr Martín [place] [address] [phone] Hba1c 6.7 % High <5.7 4 Est Avg Glucose 146 mg/dL High 60 - 110 Comprehensive Chem Profile 11/10/2020 [facility], Phone Banker: Dr Martín [place] [address] [phone] Glucose 104 mg/dL High 74 - 99 [...] >= 60 mL/min >60 6 A1c 09/08/2020 [facility] , Phone Banker: Dr [place]ín [place] [address] [phone] Hba1c 6.7 % High <5.7 7 Est Avg Glucose 146 mg/dL High 60 - 110 Comprehensive Chem Profile 09/08/2020 [facility] Phone Banker: Dr Martín [place] [address] [phone] Glucose 113 mg/dL High 74 - 99 [...] mL/min >60 9 Complete Blood Count 09/08/2020 [facility] Phone Banker: Dr [place]ín [place] [address] [phone] WBC 10.3 x10*3/UL 4.1 - 10.9 RBC [...] 7.8 Influenza A/B RSV Covid Amp 08/23/[address] [address] [phone] Influenza A Amplification NEGATIVE Normal Negati ve 10 Influenza B Amplification NEGATIVE Normal Negative 11 RSV Amplification NEGATIVE Normal Negative 12 Sars Covid-19 Amplification NEGATIVE Normal Negative 13 Laboratory test finding 08/23/2020 [facility] [address] [place] [address] [phone] iSTAT Troponin 0.01 NG/ML Normal 0.00-0.08 Istat Chem8+ Panel 08/23/2020 [facility] nter [address] [place] [address] [phone] iSTAT HCT 45.0 % Normal 38.0-51.0 iSTAT Glucose 158 mg/dL High 70-105 iSTAT Sodium 139 mEq/L Normal 136-145 iSTAT Potassium 4.4 mEq/L Normal 3.5-5.1 iSTAT CA++ 4.6 mg/dL Normal 4.5-5.3 iSTAT Chloride 101 mEq/L Normal 98-109 iSTAT Co2 31.0 MM/L High 23.0-27.0 iSTAT BUN 10 mg/dL Normal 8-26 iSTAT Creatinine 0.6 mg/dL Normal 0.6-1.3 CBC With Differential 08/23/2020 [facility] [address] [place] [address] [phone] White Blood Count 7.8 10 Normal 4.0-10.0 [...] 36.0-66.0 Lymph % 23.1 % Low 24.0-44.0 [place] % 10.3 % High 2.0-8.0 Eos % 2.6 % Normal 0.0-3.0 Baso % 1.4 % High 0.0-1.0 Immature Granulocyte % 0.5 % Normal 0-3.0 Nucleated Red Blood Cell % 0.0 % Normal 0-0 Neutrophils # 4.9 10 Normal 1.5-8.5 Lymph # 1.8 10 Normal 1.5-5.0 [place] # 0.8 10 Normal 0.0-0.8 Eos # 0.2 10 Normal 0.0-0.5 Baso # 0.1 10 Normal 0.0-0.2 Prothrombin Time/Inr 08/23/2020 [facility] enter [address] [place], [place] [address] [phone] Prothrombin Time 16.2 seconds High 12.5-14.3 Inr 1.27 Normal 14 Liver Profile 08/23/2020 [facility] nter [address] [place] [address] [phone] Ast/Sgot 42 U/L High 7-37 Alt/SGPT 33 U/L Normal 12-78 Alkaline Phosphatase 90 U/L Normal 45-117 Bilirubin,Total 1.3 mg/dL High 0.2-1.0 Bilirubin,Direct 0.6 mg/dL High 0.0-0.2 Total Protein 7.7 GM/DL Normal 6.4-8.2 Albumin 3.1 GM/DL Low 3.2-5.2 Albumin/Globulin Ratio 0.7 Normal Laboratory test finding 08/23/2020 [facility] [address] [place], [place] [address] [phone] Magnesium Level 1.6 mg/dL Low 1.8-2.4 NT-Pro [...] LITTLE GFR LEFT ESRD GFR <15 ON CLEARANCE COORDINATOR 3 Lab Result Notes: Pre-Diabetes 5.7 - [...] LITTLE GFR LEFT ESRD GFR <15 ON CLEARANCE COORDINATOR 7 Lab Result Notes: Pre-Diabetes 5.7 - [...] LITTLE GFR LEFT ESRD GFR <15 ON CLEARANCE COORDINATOR 10 Negative results do not prec lude [...] pathogens. DISCLAIMER: Testing was performed using the [employer] SARS-CoV-2 test. This test was developed and its performance characteristics determined by [employer]. This test has not been FDA cleared [...] INFARCTION 2.5-3.5 Procedures Date Code Description Status 11/10/2020 96349 Office/Outpatient Established Mo d MDM 30-39 Min Completed 11/09/2020 [id number] Colonoscopy Completed 09/08/2020 18618 [facility] Care SRV W/I 14D Of DC, Co mm W/I 2 Dys Med Rec Completed 01/21/2019 [id number] Colonoscopy Completed 12/10/2018 [id number] Colonoscopy Completed 11/13/2018 [id number] Diabetic Retinal Eye Exam Comple [facility] 06/22/2015 [id number] Diabetic Retinal Eye Exam Comple [facility] Medical Devices Description No Information Available Encounters Type Date Location Provider Dx Diagnosis Office Visit 11/10/2020 11:30a [facility] Goldman M.D. 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.01 supervisor intermediates (current) use of a nticoagulants E11.9 Type [...] with medication regimen Office Visit 09/08/2020 10:00a [facility] PKaren Goldman M.D. I48.91 Unspecified atrial fibrillation Z79.01 skilled nursing (current) use of a nticoagulants Z91.14 Patient's [...] Unspecified atrial fibrillation Milton Sanchez, DO 01/31/2021 E11.9 Type 2 [...] Goldman M.D. 11/10/2020 Z91.14 Patient's other noncompliance [facility] medication regimen Nader Goldman M.D. 09/08/2020 I48.91 Unspecified atrial fibrillation Nader Goldman M.D. 09/08/2020 Z79.01 skilled nursing (current) use of antic oagulants Nader Goldman [...] 2:40 pm - Milton Sanchez DO at [facility] * 03/31/2021 2:30 pm - Nader [facility] 11/10/2020 - Nader Goldman [...]
--- OUTSIDE RECORDS SUMMARY | 2021-03-14 14:11 | CCD | Continuity of Care Document ---
Author Author Dipak CID MD Organization Unknown Address [id number] [place] [address] , [facility] [address] [place] [address] Phone [phone] Care Team Providers Care Retail Cashier Associate Name Role Phone Nader Goldman M.D. AUTM [phone] AUTM Unavailable Problems Active Problems Provider Date Obstructive sleep apnea syndrome Erika Mendoza A.NMelyssa Onset: 05/22/2010 Essential hypertension Fco Cates MD [...] SIG Qnty Indications Ordering Provide r Date Percocet 5-325mg Tablets 1 by mouth every 4 hours as needed post op pain 30tabs Lanny Esquivel 02/08/2021 Methylprednisolone 4mg Tablets dose jessica, take as [...] Clem Mcarthur M.D. (Gov) 0 History Medications Suprep Bowel Prep Kit 17.5-3.13-1.6GM/177ML Solution take per doctor's bowel prep instructions. 354ml Z12.1 1 Fco Cates MD 11/02/2020 - 12/16/2019 Immunizations CPT Code Status Date Vaccine Lot # [id number] Given 02/13/2010 Influenza Virus Split 3 Yrs And Above For Intramuscular Use Vital Signs Date Vital Result Comment 01/17/2021 1:58pm Body Temperature 97.9 F 12/15/2020 10:56am Body Temperature 98.7 F Results Test Acquired Date Facility Test Result H/L Range Note Laboratory test finding 11/09/2020 [facility] [address] [place], [place] [id number] [phone] Pathology Request For Service (SEE NOTE) 1 [...] 1001 Procedures Date Code Description Status 02/08/2021 81659 Surgical Arthroscopy Shoulder W/ Rotator Cuff RPR Completed 02/08/2021 32641 Surgical Arthroscopy Halina W/Corac oacrm Ligm RLS Completed 02/08/2021 83896 Surgical Arthroscopy Shoulder DS TL Claviculc Completed 01/17/2021 04685 Office/Outpatient Established Mo d MDM 30-39 Min Completed 12/20/2020 27007 Office/Outpatient Established Lo w MDM 20-29 Min Completed 12/15/2020 92252 Office/Outpatient Established Mo d MDM 30-39 Min Completed 12/15/2020 05089 Inject/Drain Arthrocentesis Kylee r Joint/Bursa/Ganglion Cyst Completed 11/09/2020 95051 Colonoscopy Flexible Proximal To Splenic Flexure W/Biopsy Single/ Completed 10/07/2020 07991 Office/Outpatient Established Lo w MDM 20-29 Min Completed 09/22/2020 65481 Office/Outpatient New Moderate M DM 45-59 Minutes Completed Medical Devices Description No Information Available Encounters Type Date Location Provider Dx Diagnosis Office Visit 01/17/2021 2:00p [facility] Marek Cid MD S46.011A Strain of musc/tend the rotator cuff of right shoulder, init Office Visit 12/20/2020 9:15a [facility] Marek Cid MD S46.011D Strain of musc/tend the rotator cuff of right shoulder, subs Office Visit 12/15/2020 10:45a [facility] Marek Cid MD S46.011D Strain of musc/tend the rotator cuff of right shoulder, subs S46.111D Strain of musc/fasc/tend storm g hd bicep, right arm, subs M75.41 Impingement syndrome of righ t shoulder Office Visit 10/07/2020 2:15p [facility] Marek Cid MD S46.111A Strain of musc/fasc/tend long hd bicep, right arm, init M75.41 Impingement syndrome of righ t shoulder S46.011D Strain of musc/tend the rota tor cuff of right shoulder, subs Office Visit 09/22/2020 9:00a [facility] Marek Cid MD S46.011A Strain of musc/tend the rotator cuff of right shoulder, init S49.91xA Unsp injury of right shoulde r and upper arm, init encntr Assessments Date Code Description Provider 02/08/2021 M75.51 Bursitis of right shoulder Marek [...] Cates MD Plan of Treatment Future Appointment(s):* 02/21/2021 9:15 am - Marek Cid MD at [facility] 01/17/2021 - Marek Cid MD* S46.011A Strain of muscle(s) and tendon(s) of the rotator cuff of right shoulder, initial encounter Functional Status Description No Information Available Mental Status Description No Information Available Referrals Description No Information Available
--- OUTSIDE RECORDS SUMMARY | 2021-03-14 14:12 | CCD ---
Author Author [facility] Organization [facility] Address Unknown Phone Unavailable Care Team Providers Care Coverage Analyst Name Role Phone Isra Goldman MD Unavailable Unavailable Isra Goldman MD Unavailable Unavailable Isra Goldman MD Unavailable Unavailable Isra Goldman MD Unavailable Unavailable Isra Goldman MD Unavailable Unavailable Isra Goldman MD Unavailable Unavailable Isra Goldman MD Unavailable Unavailable Isra Goldman MD Unavailable Unavailable Isra Goldman MD Unavailable Unavailable Isra Goldman MD Unavailable Unavailable Isra Goldman MD Unavailable Unavailable Isra Goldman MD Unavailable Unavailable Isra Goldman MD Unavailable Unavailable Isra Goldman MD Unavailable Unavailable Isra Goldman MD Unavailable Unavailable Isra Goldman MD Unavailable Unavailable Isra Goldman MD Unavailable Unavailable Isra Goldman MD Unavailable Unavailable Isra Goldman MD Unavailable Unavailable Isra Goldman MD Unavailable Unavailable Isra Goldman MD Unavailable Unavailable Isra Goldman MD Unavailable Unavailable Isra Goldman MD Unavailable Unavailable Isra Goldman MD Unavailable Unavailable Isra Goldman MD Unavailable Unavailable Isra Goldman MD Unavailable Unavailable Isra Goldman MD Unavailable Unavailable Isra Goldman MD Unavailable Unavailable Isra Goldman MD Unavailable Unavailable Isra oGldman MD Unavailable Unavailable Isra Goldman MD Unavailable Unavailable Isra Goldman MD Unavailable Unavailable Isra Goldman MD Unavailable Unavailable Isra Goldman MD Unavailable Unavailable Isra Goldman MD Unavailable Unavailable Isra Goldman MD Unavailable Unavailable Isra Goldman MD Unavailable Unavailable Isra Goldman MD Unavailable Unavailable Isra Goldmanson Unavailable Unavailable White F Nader Unavailable Unavailable White, F Nader MD Unavailable Unavailable White, F Nader MD Unavailable Unavailable White F Nader Unavailable Unavailable White F Nader MD Unavailable Unavailable White F Nader MD Unavailable Unavailable White, F Nader MD Unavailable Unavailable White, F Nader MD Unavailable Unavailable White, F Nader MD Unavailable Unavailable White, F Nader MD Unavailable Unavailable White F Nader MD Unavailable Unavailable White F Nadre Unavailable Unavailable White, F Nader MD Unavailable Unavailable White F Nader MD Unavailable Unavailable White, F Nader MD Unavailable Unavailable White, F Nader MD Unavailable Unavailable White, F Nader MD Unavailable Unavailable White, F Nader MD Unavailable Unavailable White, F Nader Unavailable Unavailable White, F Nader Unavailable Unavailable White, F Nader Unavailable Unavailable White, F Nader Unavailable Unavailable White, F Nader Unavailable Unavailable White F Nader Unavailable Unavailable White F Nader Unavailable Unavailable White F Nader Unavailable Unavailable White F Nader Unavailable Unavailable White F Nader Unavailable Unavailable White F Nader PARKS Unavailable Unavailable White F Nader Unavailable Unavailable Jones F Nader PARKS Unavailable Unavailable Jones F Nader PARKS Unavailable Unavailable Jones F Nader PARKS Unavailable Unavailable Jones F Nader PARKS Unavailable Unavailable Jones F Nader PARKS Unavailable Unavailable Jones F Nader PARKS Unavailable Unavailable Jones F Nader PARKS Unavailable Unavailable Jones F Nader PARKS Unavailable Unavailable MARY GRACE KNIGHT MD Unavailable Unavailable MARY GRACE KNIGHT MD Unavailable Unavailable MARY GRACE KNIGHT MD Unavailable Unavailable MARY GRACE KNIGHT MD Unavailable Unavailable MARY GRACE KNIGHT MD Unavailable Unavailable EUGENEMARY GRACE MD Unavailable Unavailable EUGENEMARY GRACE MD Unavailable Unavailable EUGENEMARY GRACE MD Unavailable Unavailable EUGENEMARY GRACE MD Unavailable Unavailable EUGENEMARY GRACE MD Unavailable Unavailable EUGENEMARY GRACE MD Unavailable Unavailable EUGENEMARY GRACE MD Unavailable Unavailable EUGENEMARY GRACE MD Unavailable Unavailable MARY GRACE KNIGHT MD Unavailable Unavailable MARY GRACE KNIGHT MD Unavailable Unavailable MARY GRACE KNIGHT MD Unavailable Unavailable MARY GRACE KNIGHT MD Unavailable Unavailable MARY GRACE KNIGHT MD Unavailable Unavailable MARY GRACE KNIGHT MD Unavailable Unavailable MARY GRACE KNIGHT MD Unavailable Unavailable MARY GRACE KNIGHT MD Unavailable Unavailable MARY GRACE KNIGHT MD Unavailable Unavailable MARY GRACE KNIGHT MD Unavailable Unavailable MARY GRACE KNIGHT MD Unavailable Unavailable EUGENEMARY GRACE MD Unavailable Unavailable EUGENEMARY GRACE MD Unavailable Unavailable EUGENEMARY GRACE MD Unavailable Unavailable EUGENEMARY GRACE MD Unavailable Unavailable EUGENEMARY GRACE MD Unavailable Unavailable EUGENEMARY GRACE MD Unavailable Unavailable EUGENEMARY GRACE MD Unavailable Unavailable EUGENE, MARY GRACE PARKS Unavailable Unavailable EUGENE, MARY GRACE PARKS Unavailable Unavailable EUGENE, MARY GRACE PARKS Unavailable Unavailable EUGENE, MARY GRACE PARKS Unavailable Unavailable EUGENE, MARY GRACE PARKS Unavailable Unavailable EUGENE, MARY GRACE PARKS Unavailable Unavailable EUGENE, MARY GRACE PARKS Unavailable Unavailable EUGENE, MARY GRACE PARKS Unavailable Unavailable EUGENE, MARY GRACE PARKS Unavailable Unavailable EUGENE, MARY GRACE PARKS Unavailable Unavailable EUGENE, MARY GRACE PARKS Unavailable Unavailable EUGENE, MARY GRACE PARKS Unavailable Unavailable EUGENE, MARY GRACE PARKS Unavailable Unavailable EUGNEE, MARY GRACE PARKS Unavailable Unavailable EUGENE, MARY GRACE PARKS Unavailable Unavailable EUGENE, MARY GRACE PARKS Unavailable Unavailable EUGENE, MARY GRACE PARKS Unavailable Unavailable EUGENE, MARY GRACE PARKS Unavailable Unavailable EUGENE, MARY GRACE PARKS Unavailable Unavailable EUGENE, MARY GRACE PARKS Unavailable Unavailable EUGENE, MARY GRACE PARKS Unavailable Unavailable EUGENE, MARY GRACE PARKS Unavailable Unavailable EUGENE, MARY GRACE PARKS Unavailable Unavailable EUGENE, MARY GRACE PARKS Unavailable Unavailable MollisonCheco MD Unavailable Unavailable MollisonCheco MD Unavailable Unavailable Mollison, Checo Jara MD Unavailable Unavailable MollisonCheco MD Unavailable Unavailable MollisonCheco MD Unavailable Unavailable MollisonCheco MD Unavailable Unavailable MollisonCheco MD Unavailable Unavailable MollisonCheco MD Unavailable Unavailable MollisonCheco MD Unavailable Unavailable MollisonCheco MD Unavailable Unavailable Mollison, Checo Jara MD Unavailable Unavailable MollisonCheco MD Unavailable Unavailable MollisonCheco MD Unavailable Unavailable MollisonCheco MD Unavailable Unavailable MollisonCheco MD Unavailable Unavailable MollisonCheco MD Unavailable Unavailable MollisonCheco MD Unavailable Unavailable MollisonCheco MD Unavailable Unavailable MollisonCheco MD Unavailable Unavailable MollisonCheco MD Unavailable Unavailable MollisonCheco MD Unavailable Unavailable MollisonCheco MD Unavailable Unavailable MollisonCheco MD Unavailable Unavailable MollisonCheco MD Unavailable Unavailable MollisonCheco MD Unavailable Unavailable MollisonCheco MD Unavailable Unavailable MollisonCheco MD Unavailable Unavailable MollisonCheco MD Unavailable Unavailable MollisonCheco MD Unavailable Unavailable MollisonCheco MD Unavailable Unavailable Lisseth, Christopher DO Unavailable Unavailable Howell, Christopher DO Unavailable Unavailable Howell, Christopher DO Unavailable Unavailable Howell, Christopher DO Unavailable Unavailable Howell, Christopher DO Unavailable Unavailable Lisseth, Christopher DO Unavailable Unavailable Howell, Christopher DO Unavailable Unavailable Milton Montanez DO Unavailable Unavailable Re-disclosure Warning The records that you are about to access may contain information from federally-assisted alcohol or drug abuse programs. If such information is present, then the following federally mandated warning applies: This information has been disclosed to you from records protected by federal confidentiality rules (42 CFR part 2). The federal rules prohibit you from making any further disclosure of this information unless further disclosure is expressly permitted by the written consent of the person to whom it pertains or as otherwise permitted by 42 CFR part 2. A general authorization for the release of medical or other information is NOT sufficient for this purpose. The Federal rules restrict any use of the information to criminally investigate or prosecute any alcohol or drug abuse patient.The records that you are about to access may contain highly sensitive health information, the redisclosure of which is protected by Article 27-F of the [facility] Public Health law. If you continue you may have access to information: Regarding HIV / AIDS; Provided by facilities licensed or operated by the [facility] Office of Mental Health; or Provided by the [facility] Office for People With Developmental Disabilities. If such information is present, then the following [facility] mandated warning applies: This information has been disclosed to you from confidential records which are protected by state law. State law prohibits you from making any further disclosure of this information without the specific written consent of the person to whom it pertains, or as otherwise permitted by law. Any unauthorized further disclosure in violation of state law may result in a fine or fpc sentence or both. A general authorization for the release of medical or other information is NOT sufficient authorization for further disc losure. Family History Family Member Name Family Member Gender Family Member Status Date o f Status Description Data Source(s) Unknown Male Problem [facility] ([facility]) Unknown Male Problem [facility] ([facility]) Unknown Female Problem [facility] Encounters Encounter Providers Location Date Indications Data Source(s ) Outpatient Attender: MARY GRACE [email or web address] 01:16:01 PM EDT - 03/03/2021 02:05:15 PM EDT [facility] Outpatient Attender: Milton Arboleda 03/03/2021 11:40:00 AM EDT [facility] ([facility] ) Outpatient Attender: Milton Arboleda 02/28/2021 10:40:00 AM EDT [facility] ([facility] ) Office Visit Attender: Marek [facility] 02/21/2021 09:15:00 AM EDT [facility] ([facility]) Outpatient Attender: Shaileshluna Whitekaylabasil 01/31/2021 01:40:00 PM EDT [facility] ([facility] ) Outpatient Attender: Marek [facility] 01/17/2021 02:00:00 PM EDT [facility] ([facility]) Outpatient Attender: MARY GRACE KEENANSJDorisELIUD 12:00:00 AM EDT - 12/21/2020 10:26:08 AM EDT [facility] Outpatient Attender: Marek [facility] 12/20/2020 09:15:00 AM EDT [facility] ([facility] Outpatient Attender: Marek [facility] 12/15/2020 10:45:00 AM EDT [facility] ([facility] Outpatient Attender: Nader Hurt 11/10 11:30:00 AM EDT [facility] ([facility] ) Outpatient Attender: MARY GRACE LYMAN-SJPYoELIUD 10/28/2020 12:00:00 AM EDT [facility] Outpatient Attender: Marek [facility] 10/07/2020 02:15:00 PM EDT [facility] ([facility]) Outpatient Attender: Marek [facility] 09/22/2020 09:00:00 AM EDT [facility] ([facility] [place]) Outpatient Attender: Nader Hurt 09/08 10:00:00 AM EDT [facility] ([facility] ) Immunizations Vaccine Date Status Description Data Source(s) COVID-19 VACCINE Moderna 10/07/2020 12:00:00 AM EDT completed [facility] Vaccine Series Complete: YESThis Data wa s Submitted to [facility] Via [employer]. COVID-19 VACCINE Moderna 09/09/2020 12:00:00 AM EDT completed [facility] Vaccine Series Complete: NOThis Data was Submitted to [facility] Via [employer]. Medications Medication Brand Name Start Date Product Form Dose Route Admi nistrative Instructions Pharmacy Instructions Status Indications Reaction Description Data Source(s) ferrous sulfate 325 MG Oral Tablet Ferrous Sulfate 03/08/2021 12:00 :00 AM EDT ORAL active [facility] ([facility]) Spironolactone 25 MG Oral Tablet Spironolactone 03/08/2021 12:00:00 A M EDT ORAL active [facility] ([facility]) Lactulose 667 MG/ML Oral Solution Lactulose Encephalop athy 10 GM/15ML SOLN Lactulose Encephalopathy 10 GM/15ML SOLN 03/02/2021 12:00:00 AM EDT active [facility] Lactulose 667 MG/ML Oral Solution Lactulose 03/01/2021 12:00:00 AM EDT ORAL active [facility] ([facility]) Furosemide 40 MG Oral Tablet furosemide (LASIX) 40 MG tablet furosemide (LASIX) 40 MG tablet 02/28/2021 12:00:00 AM EDT active [facility] Furosemide 40 MG Oral Tablet Furosemide 02/28/2021 12:00:00 AM EDT ORAL active [facility] ([facility]) atorvastatin 20 MG Oral Tablet atorvastatin (LIPITOR) 20 MG tablet atorvastatin (LIPITOR) 20 MG tablet 02/24/2021 12:00:00 AM EDT active [facility] Metoprolol Tartrate 25 MG Oral Tablet me toprolol tartrate (LOPRESSOR) 25 MG tablet metoprolol tartrate (LOPRESSOR) 25 MG tablet 02/24/2021 12:0 0:00 AM EDT 25 mg Oral active Take 25 mg by mo uth daily [facility] Acetaminophen 325 MG / Oxycodone Hydrochloride 5 MG Or al Tablet [Percocet] Percocet 02/08/2021 12:00:00 AM EDT ORAL completed [facility] ([facility] ) Metoprolol Tartrate 25 MG Oral Tablet Metoprolol Tartrate 12:00:00 AM EDT ORAL active [facility] ([facility]) apixaban 5 MG Oral Tablet Apixaban (ELIQUIS) 5 MG TABS tablet Apixaban (ELIQUIS) 5 MG TABS tablet 01/31/2021 12:00:00 AM EDT 5 mg Oral active Paroxysmal atrial fibrillation Take 1 tablet (5 mg total) by mouth 2 (t wo) times a day [facility] Paroxysmal atrial fibrillation Methylprednisolone 4 MG Oral Tablet Methylprednisolone 12/25 12:00:00 AM EDT active [facility] ([facility], ) Cyclobenzaprine hydrochloride 10 MG Oral Tablet cyclobenzaprine (FLEXERIL) 10 MG tablet cyclobenzaprine (FLEXERIL) 10 MG tablet 01/02/2021 12:00:00 AM EDT active [facility] Cyclobenzaprine hydrochloride 10 MG Oral Tablet Cyclobenzapr ine HCL 01/02/2021 12:00:00 AM EDT ORAL active M EDENT ([facility], ) Lisinopril 2.5 MG Oral Tablet lisinopril (PRINIVIL,ZES TRIL) 2.5 MG tablet lisinopril (PRINIVIL,ZESTRIL) 2.5 MG tablet 12/21/2020 12:00:00 AM EDT 2.5 mg Oral aborted Type 2 diabetes mellitus without complication, without long- term current use of insulinHypertension, unspecified type Take 1 tablet (2.5 mg total) by mouth daily [facility] Type 2 diabetes mellitus without complic ation, without long-term current use of insulin Hypertension, unspecified type apixaban 5 MG Oral Tablet Apixaban (ELIQUIS) 5 MG TABS tablet Apixaban (ELIQUIS) 5 MG TABS tablet 12/15/2020 12:00:00 AM EDT 5 mg Oral active Take 1 tablet (5 mg total) by mouth 2 (two) times a day [facility] Suprep Bowel Prep Kit Suprep Bowel Prep Kit 11/02/2020 12:00:00 AM EDT completed [facility] ([facility] ) Metoprolol Tartrate 50 MG Oral Tablet me toprolol tartrate (LOPRESSOR) 50 MG tablet metoprolol tartrate (LOPRESSOR) 50 MG tablet 10/28/2020 12:0 0:00 AM EDT 50 mg Oral active Hypertension, unspecified typeParoxysmal atrial fibrillation Take 1 tablet (50 mg total) by mouth 2 ( two) times a day [facility] Hypertension, unspecified type Paroxysmal atrial fibrillation Lisinopril 10 MG Oral Tablet lisinopril (PRINIVIL,ZEST RIL) 10 MG tablet lisinopril (PRINIVIL,ZESTRIL) 10 MG tablet 10/28/2020 12:00:00 AM EDT 5 mg Oral aborted Take 0.5 tablets (5 mg total) by mouth daily [facility] atorvastatin 20 MG Oral Tablet Atorvastatin Calcium 09/01/2020 1 2:00:00 AM EDT ORAL active [facility] ( [facility]) MAGNESIUM GLUCONATE 500 MG Oral Tablet Magnesium Gluconate 0 09/01/2020 12:00:00 AM EDT active [facility] Metformin hydrochloride 1000 MG Oral Tablet Metformin HCL 09/01/2020 12:00:00 AM EDT ORAL active [facility] ropinirole 4 MG Oral Tablet Ropinirole HCL 09/01/2020 12:00:00 AM EDT ORAL active [facility] ([facility]) atorvastatin 40 MG Oral Tablet atorvastatin (LIPITOR) 40 MG tablet atorvastatin (LIPITOR) 40 MG tablet 08/30/2020 12:00:00 AM EDT 40 mg Oral active Take 40 mg by mouth daily [facility] Magnesium Oxide 500 MG Oral Tablet Magnesium Oxide 500 MG TABS Magnesium Oxide 500 MG TABS 08/30/2020 12:00:00 AM EDT 1 {tbl} Oral activ e Take 1 tablet by mouth daily [facility] Metformin hydrochloride 1000 MG Oral Tab let metFORMIN (GLUCOPHAGE) 1000 MG tablet metFORMIN (GLUCOPHAGE) 1000 MG tablet 08/30/2020 12:00:00 AM EDT 1000 mg Oral active Take 1,000 mg by mouth 2 (two) times a day with meals [facility] ropinirole 4 MG Oral Tablet rOPINIRole (REQUIP) 4 MG t ablet rOPINIRole (REQUIP) 4 MG tablet 08/30/2020 12:00:00 AM EDT 4 mg Oral active Take 4 mg by mouth nightly [facility] Pravastatin Sodium 10 MG Oral Tablet pravastatin (PRAV ACHOL) 10 MG tablet pravastatin (PRAVACHOL) 10 MG tablet 01/13/2020 12:00:00 AM EDT 10 mg Oral aborted Hypertension, unspecified ty peParoxysmal atrial fibrillationHyperlipidemia, unspecified hyperlipidemia type Take 1 tablet (10 mg total) by mouth nightly [facility] Hypertension, unspecified type Paroxysmal atrial fibrillation Hyperlipidemia, unspecified hyperlipidem ia type Metoprolol Tartrate 25 MG Oral Tablet me toprolol tartrate (LOPRESSOR) 25 MG tablet metoprolol tartrate (LOPRESSOR) 25 MG tablet 12/16/2019 12:0 0:00 AM EDT 25 mg Oral aborted Take 1 tablet (2 5 mg total) by mouth 2 (two) times a day [facility] Lisinopril 10 MG Oral Tablet lisinopril (PRINIVIL,ZEST RIL) 10 MG tablet lisinopril (PRINIVIL,ZESTRIL) 10 MG tablet 11/12/2019 12:00:00 AM EDT 10 mg Oral aborted Take 10 mg by mouth daily [facility] Hydrochlorothiazide 25 MG Oral Tablet hy drochlorothiazide (HYDRODIURIL) 25 MG tablet hydrochlorothiazide (HYDRODIURIL) 25 MG tablet 020 12:00:00 AM EDT 12.5 mg Oral aborted Take 12.5 mg by mouth daily [facility] Metformin hydrochloride 500 MG Oral Tablet metFORMIN ( GLUCOPHAGE) 500 MG tablet metFORMIN (GLUCOPHAGE) 500 MG tablet 10/24/2019 12:00:00 AM EDT 500 m g Oral aborted Take 500 mg by mouth 4 (four ) times a day [facility] Insurance Providers Payer name Policy type / Coverage type Policy ID Covered democrat ID Covered democrat's relationship to lopez Policy Lopez Plan Information BS [place] B [id number] Family Dependent U [id number] BS [place] Part [employer] [id number] Family Dependent U [id number] BS [place] [id number] Family Dependent U [id number] BS [place] [id number] Family Dependent U [id number] BS [place] [id number] Family Dependent U [id number] BS [place] Part B [id number] Family Dependent U [id number] BS [place] Part B [id number] Family Dependent U [id number] BS [place] Part [employer] [id number] Family Dependent U [id number] BS [place] [id number] Family Dependent U [id number] MVP (pr) Commercial [id number] Self [id number] Stella (WC) Workers Compensation [id number] Self [id number] [facility] [id number] SP [id number] [facility] [id number] SP [id number] [facility] Healthcare Commercial [id number] Self [facility] Healthcare Commercial [id number] Self [id number] [employer] Commercial [id number] Self [id number] [employer] Commercial [id number] Self [employer] [id number] Deborah PYN [id number] [employer] [id number] [employer] B [id number] S PYN [id number] BS [place] Commercial [id number] Self P [id number] BS [place] Commercial [id number] Self P [id number] BS [place] Commercial [id number] Self P [id number] [employer] B [id number] S PYN [id number] [facility] O [id number] S [id number] [employer] [place] P[place] 302/307 [id number] SP [id number] [employer] Health Maintenance Organization (HMO) [id number] Self [id number] [employer] [place] 306/806 [id number] SP [id number] BS [place] Commercial [id number] Self P [id number] [employer] [place] PPO 302/307 [id number] SP [id number] [employer] [place] PPO 302/307 [id number] SP [id number] [employer] [place] 306/806 [id number] SP [id number] Problems, Conditions, and Diagnoses Code Display Name Description Problem Type Effective Dates Data Source(s) E11.9 Type 2 diabetes mellitus without complic ations Type 2 diabetes mellitus without complic Diagnosis 12/21/2020 09:25:05 AM EDT [facility] G47.33 Obstructive sleep apnea (adult) (pediatr ic) Obstructive sleep apnea (adult) (pediatr Diagnosis 12/21/2020 09:25:05 AM EDT [facility] I10 Essential (primary) hypertension Essential (primary) h ypertension Diagnosis 12/21/2020 09:25:05 AM EDT [facility] K21.9 Gastro-esophageal reflux disease without esophagitis Gastro-esophageal reflux disease without Diagnosis 12/21/2020 09:25:05 AM EDT [facility] F32.9 Major depressive disorder, single episod e, unspecified Major depressive disorder, single episod Diagnosis 12/21/2020 09:25:05 AM EDT [facility] F41.9 Anxiety disorder, unspecified Anxiety disorder, unspec ified Diagnosis 12/21/2020 09:25:05 AM EDT [facility] E78.5 Hyperlipidemia, unspecified Hyperlipidemia, unspecifie d Diagnosis 12/21/2020 09:25:05 AM EDT [facility] I48.0 Paroxysmal atrial fibrillation Paroxysmal atrial fibri llation Diagnosis 12/21/2020 09:25:05 AM EDT [facility] K74.60 Cirrhosis Cirrhosis [id number] 03/03/2021 12:00:00 AM ED T [facility] Surgeries/Procedures Procedure Description Date Indications Data Source(s) OFFICE OUTPATIENT VISIT 25 MINUTES 03/03/2021 12:00:00 AM EDT [facility] ([facility]) OFFICE OUTPATIENT VISIT 25 MINUTES 02/28/2021 12:00:00 AM EDT [facility] ([facility]) TROPONIN QUANTITATIVE <td>TROPONIN I</td><td>Routine</td><td>02/23/2021</td><td></td><td> </td> 02/23/2021 12:00:00 AM EDT [facility] BLOOD COUNT COMPLETE AUTO&AUTO DIFRNTL WBC COUNT <td>C BC AND DIFFERENTIAL</td><td>Routine</td><td>02/23/2021</td><td></td><td> </td> 02/23/2021 12:00:00 AM EDT [facility] THYROID STIMULATING HORMONE TSH <td>TSH</td><td>Routine</td><td>02/23/2021</td><td></td><td> </td> 02/23/2021 12:00:00 AM EDT [facility] HEPATIC FUNCTION PANEL <td>HEPATIC FUNCTION PANEL</td><td>Routine</td><td>02/23/2021</td><td></td><td> </td> 02/23/2021 12:00:00 AM EDT [facility] BASIC METABOLIC PANEL CALCIUM TOTAL <td>BASIC METABOLI C PANEL</td><td>Routine</td><td>02/23/2021</td><td></td><td> </td> 02/23/2021 12:00:00 AM EDT [facility] ARTHROSCOPY SHOULDER DISTAL CLAVICULECTOMY 02/08/2021 12:00:00 AM EDT [facility] ([facility], ) SHOULDER SCOPE BONE SHAVING 02/08/2021 12:00:00 AM EDT [facility] ([facility], ) ARTHROSCOPY SHOULDER ROTATOR CUFF REPAIR 02/08/2021 12 :00:00 AM EDT [facility] ([facility], ) ECG ROUTINE ECG W/LEAST 12 LDS W/I&R 01/31/2021 12:00: 00 AM EDT [facility] ([facility]) OFFICE OUTPATIENT VISIT 25 MINUTES 01/31/2021 12:00:00 AM EDCleo [facility]IL ([facility]) OFFICE OUTPATIENT VISIT 25 MINUTES 01/17/2021 12:00:00 AM EDT [facility] ([facility]) OFFICE OUTPATIENT VISIT 15 MINUTES 12/20/2020 12:00:00 AM EDT [facility] ([facility]) OFFICE OUTPATIENT VISIT 25 MINUTES 12/20/2020 12:00:00 AM EDT [facility] ([facility]) Inject/Drain Arthrocentesis Major Joint/Bursa/Ganglion Cyst 12/15/2020 12:00:00 AM EDT [facility] ([facility]) OFFICE OUTPATIENT VISIT 25 MINUTES 12/15/2020 12:00:00 AM EDT [facility] ([facility]) OFFICE OUTPATIENT VISIT 25 MINUTES 11/10/2020 12:00:00 AM EDT [facility] ([facility]) Colonoscopy 11/09/2020 12:00:00 AM EDT DENISSE ([facility]) Colonoscopy Flexible Proximal To Splenic Flexure W/Biopsy Si ngle/ 11/09/2020 12:00:00 AM EDT [facility] ECG ROUTINE ECG W/LEAST 12 LDS W/I&R <td>POCT AMB EKG</td><td>Routine</td><td>10/28/2020</td><td> Paroxysmal atrial fibrillation Hypertension, unspecified type</td><td></td> 10/28/2020 12:00:00 AM EDT Hypertension, unspecified typeParoxysmal atrial fibrillation [facility] Hypertension, unspecified type Paroxysmal atrial fibrillation OFFICE OUTPATIENT VISIT 15 MINUTES 10/07/2020 12:00:00 AM EDT [facility] ([facility], ) OFFICE OUTPATIENT NEW 45 MINUTES 09/22/2020 12:00:00 A M EDT [facility] ([facility], ) Trans Care SRV W/I 14D Of DC, Comm W/I 2 Dys Med Rec 09/08/2020 12:00:00 AM EDT [facility] ([facility] ) Results ID Date Data Source [id number] 03/08/2021 11:38:00 AM EDT [facility] ([facility]) Name Value Range Interpretation Code Description Data Yuridia rce(s) Supporting Document(s) Magnesium 1.9 mg/dL 1.8-2.4 [facility]) ID Date Data Source [id number] 03/08/2021 11:38:00 AM EDT [facility] ([facility]) Name Value Range Interpretation Code Description Data Yuridia rce(s) Supporting Document(s) Glucose [Mass/volume] in Serum or Plasma 108 mg/dL 74-99 [facility] ([facility]) 100-125 mg/dL PRE-DIABETES/FASTING >126 mg/dL DIABETES/FASTING Creatinine 0.8 mg/dL 0.6-1.3 [facility] ([facility]) Urea nitrogen [Mass/volume] in Serum or Plasma 18 mg/dL 7-18 [facility] ([facility]) Sodium [Moles/volume] in Serum or Plasma 136 meq/L 136-145 [facility] ([facility]) Potassium [Moles/volume] in Serum or Plasma 4.3 meq/L 3.5-5.1 [facility] ([facility]) Calcium [Mass/volume] in Serum or Plasma 9.5 mg/dL 8.5-10.1 [facility] ([facility]) Carbon dioxide, total [Moles/volume] in Serum or Plasma 31 meq/L 21 -32 [facility] ([facility]) Chloride [Moles/volume] in Serum or Plasma 100 meq/L 98-107 [facility] Glomerular filtration rate/1.73 sq M pre dicted among non-blacks [Volume Rate/Area] in Serum or Plasma by Creatinine-based formula (MDRD) Laboratory test result [facility] Glomerular filtration rate/1.73 sq M pre dicted among blacks [Volume Rate/Area] in Serum or Plasma by Creatinine-based formula (MDRD) Laboratory test result [facility] <content>CHRONIC KIDNEY DISEASE STAGING PER NKF</content>
<content></content>
<content>STAGE I & II GFR >= 60 NORMAL TO MILDLY DECREASED</content>
<content>STAGE III GFR 30-59 MODERATELY DECREASED</content>
<content>STAGE IV GFR 15-29 SEVERELY DECREASED</content>
<content>STAGE V GFR <15 VERY LITTLE GFR LEFT</content>
<content>ESRD GFR <15 ON RESIDENTIAL INSTALLER</content>
<content></content> ID Date Data Source [id number] 03/03/2021 12:14:00 PM EDT [facility] Name Value Range Interpretation Code Description Data Yuridia rce(s) Supporting Document(s) Glucose [Mass/volume] in Serum or Plasma 175 mg/dL 74-99 [facility] ([facility]) 100-125 mg/dL PRE-DIABETES/FASTING >126 mg/dL DIABETES/FASTING Urea nitrogen [Mass/volume] in Serum or Plasma 21 mg/dL 7-18 [facility] ([facility]) Potassium [Moles/volume] in Serum or Plasma 4.4 meq/L 3.5-5.1 [facility] Creatinine 0.7 mg/dL 0.6-1.3 [facility] Sodium [Moles/volume] in Serum or Plasma 140 meq/L 136-145 [facility] ([facility]) Calcium [Mass/volume] in Serum or Plasma 9.2 mg/dL 8.5-10.1 [facility] ([facility]) Chloride [Moles/volume] in Serum or Plasma 104 meq/L 98-107 [facility] Carbon dioxide, total [Moles/volume] in Serum or Plasma 31 meq/L 21 -32 [facility] Glomerular filtration rate/1.73 sq M pre dicted among non-blacks [Volume Rate/Area] in Serum or Plasma by Creatinine-based formula (MDRD) Laboratory test result [facility] Glomerular filtration rate/1.73 sq M pre dicted among blacks [Volume Rate/Area] in Serum or Plasma by Creatinine-based formula (MDRD) Laboratory test result [facility] ([facility]) <content>CHRONIC KIDNEY DISEASE STAGING PER NKF</content>
<content></content>
<content>STAGE I & II GFR >= 60 NORMAL TO MILDLY DECREASED</content>
<content>STAGE III GFR 30-59 MODERATELY DECREASED</content>
<content>STAGE IV GFR 15-29 SEVERELY DECREASED</content>
<content>STAGE V GFR <15 VERY LITTLE GFR LEFT</content>
<content>ESRD GFR <15 ON RESIDENTIAL INSTALLER</content>
<content></content> ID Date Data Source [id number] 03/03/2021 12:14:00 PM EDT [facility] Name Value Range Interpretation Code Description Data Yuridia rce(s) Supporting Document(s) Magnesium 1.5 mg/dL 1.8-2.4 [facility] ([facility]) ID Date Data Source [id number] 02/28/2021 11:23:00 AM EDT [facility] ([facility]) Name Value Range Interpretation Code Description Data Yuridia rce(s) Supporting Document(s) Inr 1.18 [facility] THERAPUTIC HUMAN INR VALUES INDICATIONS NORMAL RANGES PROPHYLAXIS/TREATMENT OF: VENOUS THROMBOSIS 2.0-3.0 PULMONARY EMBOLISM 2.0-3.0 PREVENTION OF SYSTEMIC EMBOLISM FROM: TISSUE HEART VALVES 2.0-3.0 ACUTE MYOCARDIAL INFARCTION 2.0-3.0 VALVULAR HEART DISEASE 2.0-3.0 ATRIAL FIBRILLATION 2.0-3.0 MECHANICAL VALVES(HIGH RISK) 2.5-3.5 RECURRENT MYOCARDIAL INFARCTION 2.5-3.5 Prothrombin Time 15.4 s 12.7-14.5 [facility] ([facility]) ID Date Data Source [id number] 02/28/2021 11:23:00 AM EDT [facility] ([facility]) Name Value Range Interpretation Code Description Data Yuridia rce(s) Supporting Document(s) Ammonia [Mass/volume] in Blood 48 uMOL/L [facility] ([facility]) ID Date Data Source [id number] 02/28/2021 11:23:00 AM EDT [facility] ([facility]) Name Value Range Interpretation Code Description Data Yuridia rce(s) Supporting Document(s) Total Iron Binding Capacity 456 ug/dL 250-450 [facility] ([facility]) Iron (Fe) 52 ug/dL 65-175 [facility] Percent Saturation 11.4 % 19.7-50.0 [facility] ([facility]) ID Date Data Source [id number] 02/28/2021 11:23:00 AM EDT [facility] ([facility]) Name Value Range Interpretation Code Description Data Yuridia rce(s) Supporting Document(s) Ferritin [Mass/volume] in Serum or Plasma 33 ng/mL 26-388 [facility] ID Date Data Source [id number] 02/28/2021 11:23:00 AM EDT [facility] ([facility]) Name Value Range Interpretation Code Description Data Yuridia rce(s) Supporting Document(s) Hepatitis C Virus Kelly Index 0.1 INDEX [facility] ([facility]) Negative Not infected with HCV, unless recent infection is suspected or other evidence exists to indicate HCV infection. Hepatitis B Core Antibody Igm Laboratory test [facility]) Hepatitis B Surface Antigen Laboratory test result [facility] ([facility]) Hepatitis A Antibody Igm Laboratory test [facility]) ID Date Data Source [id number] 02/28/2021 11:23:00 AM EDT [facility] Name Value Range Interpretation Code Description Data Yuridia rce(s) Supporting Document(s) Hepatitis B virus surface Ab [Presence] in Serum by Im munoassay Laboratory [facility] ) ID Date Data Source [id number] 02/28/2021 11:21:00 AM EDT [facility] ([facility]) Name Value Range Interpretation Code Description Data Yuridia rce(s) Supporting Document(s) Hepatitis B virus surface Ab [Presence] in Serum by Im munoassay Laboratory [facility] ) ID Date Data Source [id number] 02/28/2021 11:20:00 AM EDT [facility] Name Value Range Interpretation Code Description Data Yuridia rce(s) Supporting Document(s) Leukocytes [#/volume] in Blood by Automated count 9.2 x10*3/UL 4.1-10 .9 [facility] Erythrocytes [#/volume] in Blood by Automated count 4.40 x10*6/UL 4.2 0-6.30 [facility] ([facility]) Hemoglobin [Mass/volume] in Blood 12.8 g/dL 12.0-18.0 [facility] Hematocrit [Volume Fraction] of Blood by Automated count 38.8 % 3 7.0-51.0 [facility] ([facility]) MCH 29.1 pg 26.0-32.0 [facility] MCHC 33.0 g/dL 31.0-38.0 [facility] MCV 88.2 fL 80.0-97.0 [facility] ([facility]) Erythrocyte distribution width [Ratio] by Automated count 13.9 % 11.6-13.7 [facility] Platelets [#/volume] in Blood by Automated count 236 x10*3/UL 140-440 [facility] ([facility]) Mid % 5.1 % 1.7-9.3 [facility]) MPV 8.5 FL 7.8-11.0 [facility]) Lymph % 20.5 % 10.0-58.5 [facility]) Neut % 74.4 % 37.0-92.0 [facility] Mid # 0.4 x10*3/UL 0.1-0.6 [facility] ([facility]) Lymph # 1.9 x10*3/UL 0.6-4.1 [facility] ([facility]) Neut # 6.9 x10*3/UL 2.0-7.8 [facility] ([facility]) ID Date Data Source [id number] 02/28/2021 11:20:00 AM EDT [facility] ([facility]) Name Value Range Interpretation Code Description Data Yuridia rce(s) Supporting Document(s) Glucose [Mass/volume] in Serum or Plasma 111 mg/dL 74-99 [facility] ([facility]) 100-125 mg/dL PRE-DIABETES/FASTING >126 mg/dL DIABETES/FASTING Urea nitrogen [Mass/volume] in Serum or Plasma 18 mg/dL 7-18 [facility] ([facility]) Creatinine 0.7 mg/dL 0.6-1.3 [facility] ([facility]) Potassium [Moles/volume] in Serum or Plasma 4.0 meq/L 3.5-5.1 [facility] ([facility]) Sodium [Moles/volume] in Serum or Plasma 140 meq/L 136-145 [facility] ([facility]) Chloride [Moles/volume] in Serum or Plasma 103 meq/L 98-107 [facility] ([facility]) Carbon dioxide, total [Moles/volume] in Serum or Plasma 29 meq/L 21 -32 [facility] ([facility]) Calcium [Mass/volume] in Serum or Plasma 9.5 mg/dL 8.5-10.1 [facility] ([facility]) Alkaline phosphatase isoenzyme [Units/volume] in Serum or Pl asma 63 mg/dL 46-116 [facility] ([facility]) Total Bilirubin 0.7 mg/dL 0.2-1.0 [facility] ([facility]) Alanine aminotransferase [Enzymatic activity/volume] in Seru m or Plasma 30 U/L 12-78 [facility] ([facility]) Aspartate aminotransferase [Enzymatic activity/volume] in Serum or Plasma 27 U/L 15-37 [facility] ([facility] ) Albumin [Mass/volume] in Serum or Plasma 3.3 g/dL 3.4-5.0 [facility] ([facility]) Proteinase 3 Ab [Units/volume] in Serum 7.6 g/dL 6.4-8.2 [facility] ([facility]) A/G Ratio 0.77 CALC 1.00-1.90 [facility] ([facility]) Glomerular filtration rate/1.73 sq M pre dicted among non-blacks [Volume Rate/Area] in Serum or Plasma by Creatinine-based formula (MDRD) Laboratory test result [facility] Glomerular filtration rate/1.73 sq M pre dicted among blacks [Volume Rate/Area] in Serum or Plasma by Creatinine-based formula (MDRD) Laboratory [facility]) <content>CHRONIC KIDNEY DISEASE STAGING PER NKF</content>
<content></content>
<content>STAGE I & II GFR >= 60 NORMAL TO MILDLY DECREASED</content>
<content>STAGE III GFR 30-59 MODERATELY DECREASED</content>
<content>STAGE IV GFR 15-29 SEVERELY DECREASED</content>
<content>STAGE V GFR <15 VERY LITTLE GFR LEFT</content>
<content>ESRD GFR <15 ON RESIDENTIAL INSTALLER</content>
<content></content> ID Date Data Source [id number] 02/28/2021 11:20:00 AM EDT [facility] ([facility]) Name Value Range Interpretation Code Description Data Yuridia rce(s) Supporting Document(s) Urine Color Laboratory test result [facility] Urine PH 6.0 units 5.0-9.0 [facility]) Urine Appearance Laboratory test result [facility] Specific gravity of Urine 1.020 1.005-1.030 [facility] ([facility]) Urine Protein Laboratory test result 0-0 [facility] Urine Blood Laboratory test result [facility] Urine Leukocytes [facility] Glucose [Presence] in Urine [facility]) Urine Nitrite Laboratory test result [facility] Urine Ketone Laboratory test result [facility] ([facility] Bilirubin.total [Mass/volume] in Serum or Plasma Laboratory test resu lt [facility] ([facility] Urine Urobilinogen 0.2 mg/dL 0.2-1.0 [facility] ([facility] ID Date Data Source [id number] 02/23/2021 09:02:00 PM EDT [facility] Name Value Range Interpretation Code Description Data Yuridia rce(s) Supporting Document(s) Laboratory test finding (navigational concept) 0.01 ng/mL 0.00-0.08 [facility] ID Date Data Source [id number] 02/23/2021 06:29:00 PM EDT [facility] Name Value Range Interpretation Code Description Data Yuridia rce(s) Supporting Document(s) Laboratory test finding (navigational concept) 0.00 ng/mL 0.00-0.08 [facility] ID Date Data Source [id number] 02/23/2021 04:20:00 PM EDT [facility] Name Value Range Interpretation Code Description Data Yuridia rce(s) Supporting Document(s) Influenza A Amplification [facility] Negative results do not preclude influen za or RSV virus infection and should not be used as the sole basis for treatment or other patient management decisions. RSV Amplification Laboratory [facility] Negative results do not preclude influen za or RSV virus infection and should not be used as the sole basis for treatment or other patient management decisions. Influenza B Amplification Laboratory [facility] Negative results do not preclude influen za or RSV virus infection and should not be used as the sole basis for treatment or other patient management decisions. Laboratory test finding (navigational concept) Laboratory test result [facility] A false negative result may occur if a s pecimen is improperly collected, transported or handled. False [...] pathogens. DISCLAIMER: Testing was performed using the [employer] SARS-CoV-2 test. This test was developed and its performance characteristics determined by [employer]. This test has not been FDA cleared [...] the authorization is terminated or revoked sooner. ID Date Data Source [id number] 02/23/2021 04:20:00 PM EDT [facility] Name Value Range Interpretation Code Description Data Yuridia rce(s) Supporting Document(s) SARS coronavirus 2 RNA [Presence] in Res piratory specimen by KANA with probe detection NEGATIVE [facility] This lab was ordered by [facility] a nd reported by [facility]. ID Date Data Source [id number] 02/23/2021 04:12:00 PM EDT [facility] Name Value Range Interpretation Code Description Data Yuridia rce(s) Supporting Document(s) CK-MB Value Mass 3.3 ng/mL [facility] ([facility]) CPK Creatine Phosphokinase 102 U/L 39-308 [facility] MB/CK Relative Index 3.24 [facility] <content>DIAGNOSIS CRITERIA</content>
<content>MMB ng/ml Relative Index (RI)</content>
<content>NON-AMI < or = 5 N/A</content>
<content>ENRIQUEZ ZONE > 5 < or = 4</content>
<content>AMI > 5 > 4</content>
<content></content> Troponin I Laboratory test result [facility] ([facility]) <content>Troponin I Reference Interval f or [employer] LOCI:</content>
<content></content>
<content>99th Percentile= 0.00-0.045 ng/ml</content>
<content></content>
<content>Risk Stratification:</content>
<content><= 0.10 ng/ml Decreased Risk for Adverse Clinical</content>
<content>Events.</content>
<content>0.10-1.50 ng/ml Increased Risk for Adverse Clinical</content>
<content>Events. Evaluation of additional</content>
<content>criterion and/or repeat testing in 2-6</content>
<content>hours is suggested to rule out myocardial</content>
<content>damage.</content>
<content>>= 1.50 ng/ml Indicative of Myocardial Injury.</content>
<content></content> ID Date Data Source [id number] 02/23/2021 04:12:00 PM EDT [facility] ([facility]) Name Value Range Interpretation Code Description Data Yuridia rce(s) Supporting Document(s) Ast/Sgot 24 U/L 7-37 [facility]) Alt/SGPT 32 U/L 12-78 [facility]) Alkaline Phosphatase 67 U/L 45-117 [facility] ([facility]) Total Protein 7.2 GM/DL 6.4-8.2 [facility] Bilirubin,Total 0.9 mg/dL 0.2-1.0 [facility] ([facility]) Bilirubin,Direct 0.3 mg/dL 0.0-0.2 [facility] Albumin/Globulin Ratio 0.8 [facility] Albumin 3.1 GM/DL 3.2-5.2 [facility] ID Date Data Source [id number] 02/23/2021 04:12:00 PM EDT [facility] ([facility]) Name Value Range Interpretation Code Description Data Yuridia rce(s) Supporting Document(s) Lipoprotein lipase [Enzymatic activity/volume] in Serum or P lasma 249 U/L 73-393 [facility] ([facility]) Natriuretic peptide.B prohormone N-Terminal [Mass/volu me] in Serum or Plasma 303 pg/mL [facility] ([facility] ) Thyrotropin [Units/volume] in Serum or Plasma by Detec tion limit <= 0.05 mIU/L 1.080 uIU/ML 0.358-3.740 [facility] Thyroxine (T4) free [Mass/volume] in Serum or Plasma 1.07 ng/dL 0.76- 1.46 [facility]) ID Date Data Source [id number] 02/23/2021 04:12:00 PM EDT [facility] Name Value Range Interpretation Code Description Data Yuridia rce(s) Supporting Document(s) Hemoglobin 12.4 g/dL 13.5-17.5 [facility] White Blood Count 10.8 10 4.0-10.0 [facility] ([facility]) Red Blood Count 4.15 10 4.30-6.10 [facility] ([facility]) Mean Corpuscular Volume 92.5 fl 80.0-96.0 [facility] ([facility]) Hematocrit 38.4 % 42.0-52.0 [facility] Mean Corpuscular Hemoglobin 29.9 pg 27.0-33.0 [facility] ([facility]) Mean Corpuscular HGB Conc 32.3 g/dL 32.0-36.5 [facility] ([facility]) Platelet Count, Automated 211 10 150-450 [facility] ([facility]) Red Cell Distribution Width 13.8 % 11.5-14.5 [facility] ([facility]) [place] % 9.5 % 2.0-8.0 [facility] Neutrophils % 66.8 % 36.0-66.0 [facility] ([facility]) Lymph % 19.9 % 24.0-44.0 [facility] Eos % 2.3 % 0.0-3.0 [facility] Baso % 1.1 % 0.0-1.0 [facility] Immature Granulocyte % 0.4 % 0-3.0 [facility] ([facility]) Nucleated Red Blood Cell % 0.0 % 0-0 [facility] ([facility]) Neutrophils # 7.2 10 1.5-8.5 [facility] ([facility]) Lymph # 2.1 10 1.5-5.0 [facility] Eos # 0.3 10 0.0-0.5 [facility] [place] # 1.0 10 0.0-0.8 [facility] Baso # 0.1 10 0.0-0.2 [facility] ID Date Data Source [id number] 02/23/2021 04:11:00 PM EDT [facility] ([facility]) Name Value Range Interpretation Code Description Data Yuridia rce(s) Supporting Document(s) Laboratory test finding (navigational concept) 0.00 ng/mL 0.00-0.08 [facility] ([facility]) ID Date Data Source [id number] 02/23/2021 04:10:00 PM EDT [facility] ([facility]) Name Value Range Interpretation Code Description Data Yuridia rce(s) Supporting Document(s) Laboratory test finding (navigational concept) 145 mg/dL 70-105 [facility] ([facility]) Laboratory test finding (navigational concept) 37.0 % 38.0-51.0 [facility] ([facility]) Laboratory test finding (navigational concept) 4.3 meq/L 3.5-5.1 [facility] Laboratory test finding (navigational concept) 138 meq/L 136-145 [facility] ([facility]) Laboratory test finding (navigational concept) 5.2 mg/dL 4.5-5.3 [facility] ([facility]) Laboratory test finding (navigational concept) 27.0 MM/L 23.0-27.0 [facility] ([facility]) Laboratory test finding (navigational concept) 100 meq/L 98-109 [facility] ([facility]) Laboratory test finding (navigational concept) 20 mg/dL 8-26 [facility] ([facility]) Laboratory test finding (navigational concept) 0.8 mg/dL 0.6-1.3 [facility] ([facility]) ID Date Data Source [id number] 01/31/2021 02:23:00 PM EDT [facility] ([facility]) Name Value Range Interpretation Code Description Data Yuridia rce(s) Supporting Document(s) Glucose [Mass/volume] in Serum or Plasma 75 mg/dL 74-99 [facility] ([facility]) 100-125 mg/dL PRE-DIABETES/FASTING >126 mg/dL DIABETES/FASTING Urea nitrogen [Mass/volume] in Serum or Plasma 14 mg/dL 7-18 [facility] ([facility]) Creatinine 0.7 mg/dL 0.6-1.3 [facility] Sodium [Moles/volume] in Serum or Plasma 139 meq/L 136-145 [facility] ([facility]) Chloride [Moles/volume] in Serum or Plasma 103 meq/L 98-107 [facility] ([facility]) Potassium [Moles/volume] in Serum or Plasma 4.5 meq/L 3.5-5.1 [facility] ([facility]) Alkaline phosphatase isoenzyme [Units/volume] in Serum or Pl asma 63 mg/dL 46-116 [facility] ([facility]) Calcium [Mass/volume] in Serum or Plasma 9.5 mg/dL 8.5-10.1 [facility] ([facility]) Carbon dioxide, total [Moles/volume] in Serum or Plasma 30 meq/L 21 -32 [facility] ([facility]) Alanine aminotransferase [Enzymatic activity/volume] in Seru m or Plasma 35 U/L 12-78 [facility] ([facility]) Aspartate aminotransferase [Enzymatic activity/volume] in Serum or Plasma 27 U/L 15-37 [facility] ([facility] ) Total Bilirubin 0.8 mg/dL 0.2-1.0 [facility] ([facility]) Albumin [Mass/volume] in Serum or Plasma 3.4 g/dL 3.4-5.0 [facility] A/G Ratio 0.89 CALC 1.00-1.90 [facility] Proteinase 3 Ab [Units/volume] in Serum 7.2 g/dL 6.4-8.2 [facility] ([facility]) Glomerular filtration rate/1.73 sq M pre dicted among non-blacks [Volume Rate/Area] in Serum or Plasma by Creatinine-based formula (MDRD) Laboratory test result [facility] Glomerular filtration rate/1.73 sq M pre dicted among blacks [Volume Rate/Area] in Serum or Plasma by Creatinine-based formula (MDRD) Laboratory test result [facility] ([facility]) <content>CHRONIC KIDNEY DISEASE STAGING PER NKF</content>
<content></content>
<content>STAGE I & II GFR >= 60 NORMAL TO MILDLY DECREASED</content>
<content>STAGE III GFR 30-59 MODERATELY DECREASED</content>
<content>STAGE IV GFR 15-29 SEVERELY DECREASED</content>
<content>STAGE V GFR <15 VERY LITTLE GFR LEFT</content>
<content>ESRD GFR <15 ON RESIDENTIAL INSTALLER</content>
<content></content> ID Date Data Source [id number] 01/31/2021 02:23:00 PM EDT [facility] ([facility]) Name Value Range Interpretation Code Description Data Yuridia rce(s) Supporting Document(s) Magnesium 1.6 mg/dL 1.8-2.4 [facility] ID Date Data Source [id number] 01/31/2021 02:23:00 PM EDT [facility] Name Value Range Interpretation Code Description Data Yuridia rce(s) Supporting Document(s) Hemoglobin A1c/Hemoglobin.total in Blood 6.9 % [facility] Lab Result Notes: Pre-Diabetes 5.7 - 6.4 % Diabetes = or > 6.5% Glucose mean value [Mass/volume] in Blood Estimated fr om glycated hemoglobin 151 mg/dL 60-110 [facility] ([facility] ) ID Date Data Source [id number] 01/31/2021 02:23:00 PM EDT [facility] Name Value Range Interpretation Code Description Data Yuridia rce(s) Supporting Document(s) Hemoglobin A1c/Hemoglobin.total in Blood Laboratory test result [facility]) Magnesium, Serum Laboratory test result [facility] ([facility]) ID Date Data Source [id number] 11/10/2020 12:58:00 PM EDT [facility]) Name Value Range Interpretation Code Description Data Yuridia rce(s) Supporting Document(s) Hemoglobin A1c/Hemoglobin.total in Blood 6.7 % [facility] ([facility]) Lab Result Notes: Pre-Diabetes 5.7 - 6.4 % Diabetes = or > 6.5% Glucose mean value [Mass/volume] in Blood Estimated fr om glycated hemoglobin 146 mg/dL 60-110 [facility] ([facility] ) ID Date Data Source [id number] 11/10/2020 12:58:00 PM EDT [facility]) Name Value Range Interpretation Code Description Data Yuridia rce(s) Supporting Document(s) Hemoglobin [Mass/volume] in Blood 14.4 g/dL 12.0-18.0 [facility] Leukocytes [#/volume] in Blood by Automated count 9.0 x10*3/UL 4.1-10 .9 [facility] ([facility]) Erythrocytes [#/volume] in Blood by Automated count 4.70 x10*6/UL 4.2 0-6.30 [facility] ([facility]) MCH 30.7 pg 26.0-32.0 [facility]) Hematocrit [Volume Fraction] of Blood by Automated count 43.1 % 3 7.0-51.0 [facility] ([facility]) MCV 91.7 fL 80.0-97.0 [facility]) MCHC 33.5 g/dL 31.0-38.0 [facility] ([facility]) Erythrocyte distribution width [Ratio] by Automated count 12.9 % 11.6-13.7 [facility] ([facility]) MPV 8.2 FL 7.8-11.0 [facility] ([facility]) Platelets [#/volume] in Blood by Automated count 237 x10*3/UL 140-440 [facility] ([facility]) Lymph % 20.4 % 10.0-58.5 [facility]) Mid % 5.7 % 1.7-9.3 [facility] ([facility]) Lymph # 1.8 x10*3/UL 0.6-4.1 [facility] ([facility]) Neut % 73.9 % 37.0-92.0 [facility]) Neut # 6.6 x10*3/UL 2.0-7.8 [facility] ([facility]) Mid # 0.6 x10*3/UL 0.1-0.6 [facility] ([facility]) ID Date Data Source [id number] 11/10/2020 12:58:00 PM EDT [facility] ([facility]) Name Value Range Interpretation Code Description Data Yuridia rce(s) Supporting Document(s) Glucose [Mass/volume] in Serum or Plasma 104 mg/dL 74-99 [facility] ([facility]) 100-125 mg/dL PRE-DIABETES/FASTING >126 mg/dL DIABETES/FASTING Sodium [Moles/volume] in Serum or Plasma 137 meq/L 136-145 [facility] ([facility]) Creatinine 0.7 mg/dL 0.6-1.3 [facility] Urea nitrogen [Mass/volume] in Serum or Plasma 14 mg/dL 7-18 [facility] ([facility]) Potassium [Moles/volume] in Serum or Plasma 4.5 meq/L 3.5-5.1 [facility] ([facility]) Carbon dioxide, total [Moles/volume] in Serum or Plasma 28 meq/L 21 -32 [facility] ([facility]) Chloride [Moles/volume] in Serum or Plasma 103 meq/L 98-107 [facility] ([facility]) Total Bilirubin 0.9 mg/dL 0.2-1.0 [facility] ([facility]) Alkaline phosphatase isoenzyme [Units/volume] in Serum or Pl asma 67 mg/dL 46-116 [facility] ([facility]) Calcium [Mass/volume] in Serum or Plasma 9.8 mg/dL 8.5-10.1 [facility] ([facility]) Aspartate aminotransferase [Enzymatic activity/volume] in Serum or Plasma 24 U/L 15-37 [facility] ([facility] ) Alanine aminotransferase [Enzymatic activity/volume] in Seru m or Plasma 27 U/L 12-78 [facility] Albumin [Mass/volume] in Serum or Plasma 3.4 g/dL 3.4-5.0 [facility] ([facility]) A/G Ratio 0.85 CALC 1.00-1.90 [facility]) Glomerular filtration rate/1.73 sq M pre dicted among non-blacks [Volume Rate/Area] in Serum or Plasma by Creatinine-based formula (MDRD) Laboratory test result [facility] Proteinase 3 Ab [Units/volume] in Serum 7.4 g/dL 6.4-8.2 [facility] Glomerular filtration rate/1.73 sq M pre dicted among blacks [Volume Rate/Area] in Serum or Plasma by Creatinine-based formula (MDRD) Laboratory test result [facility] ([facility]) <content>CHRONIC KIDNEY DISEASE STAGING PER NKF</content>
<content></content>
<content>STAGE I & II GFR >= 60 NORMAL TO MILDLY DECREASED</content>
<content>STAGE III GFR 30-59 MODERATELY DECREASED</content>
<content>STAGE IV GFR 15-29 SEVERELY DECREASED</content>
<content>STAGE V GFR <15 VERY LITTLE GFR LEFT</content>
<content>ESRD GFR <15 ON RESIDENTIAL INSTALLER</content>
<content></content> ID Date Data Source [id number] 11/10/2020 12:58:00 PM EDT [facility] Name Value Range Interpretation Code Description Data Yuridia rce(s) Supporting Document(s) Hemoglobin A1c/Hemoglobin.total in Blood Laboratory test result [facility] ID Date Data Source [id number] 11/09/2020 09:09:00 AM EDT [facility] ([facility], ) Name Value Range Interpretation Code Description Data Yuridia rce(s) Supporting Document(s) Surgical pathology study Laboratory test result [facility] ([facility], ) FINAL DIAGNOSIS Descending and rectum polyps, polypectomy: Hyperplastic poly, fragments. 11/10/2020 - 1000 CLINICAL DIAGNOSIS History colon cancer 11/09/2020 - 1450 GROSS DIAGNOSIS Received in formalin labeled "biopsy descending colon/polyps rectum" and consists of fragments of tissue, 0.2 x 0.1 x 0.1 cm. All in one. -OA 11/09/2020 - 1450 Signed MEGHAN HOLT MD 11/10/2020 1001 ID Date Data Source [id number] 11/04/2020 09:55:00 AM EDT [facility] Name Value Range Interpretation Code Description Data Yuridia rce(s) Supporting Document(s) SARS-CoV-2 (COVID-19) RNA [Presence] in Respiratory specimen by KANA with probe detection Not Detected [facility] This lab was ordered by [facility] and reported by [employer]. ID Date Data Source [id number] 09/08/2020 11:14:00 AM EDT [facility] ([facility]) Name Value Range Interpretation Code Description Data Yuridia rce(s) Supporting Document(s) Glucose [Mass/volume] in Serum or Plasma 113 mg/dL 74-99 [facility] ([facility]) 100-125 mg/dL PRE-DIABETES/FASTING >126 mg/dL DIABETES/FASTING Urea nitrogen [Mass/volume] in Serum or Plasma 14 mg/dL 7-18 [facility] ([facility]) Creatinine 0.8 mg/dL 0.6-1.3 [facility] Sodium [Moles/volume] in Serum or Plasma 135 meq/L 136-145 [facility] ([facility]) Potassium [Moles/volume] in Serum or Plasma 3.9 meq/L 3.5-5.1 [facility] ([facility]) Carbon dioxide, total [Moles/volume] in Serum or Plasma 30 meq/L 21 -32 [facility] ([facility]) Chloride [Moles/volume] in Serum or Plasma 99 meq/L 98-107 [facility] ([facility]) Calcium [Mass/volume] in Serum or Plasma 9.7 mg/dL 8.5-10.1 [facility] ([facility]) Total Bilirubin 1.1 mg/dL 0.2-1.0 [facility] ([facility]) Aspartate aminotransferase [Enzymatic activity/volume] in Serum or Plasma 42 U/L 15-37 [facility] ([facility] ) Alkaline phosphatase isoenzyme [Units/volume] in Serum or Pl asma 76 mg/dL 46-116 [facility] ([facility]) Albumin [Mass/volume] in Serum or Plasma 3.3 g/dL 3.4-5.0 [facility] ([facility]) Alanine aminotransferase [Enzymatic activity/volume] in Seru m or Plasma 59 U/L 12-78 [facility] ([facility]) Proteinase 3 Ab [Units/volume] in Serum 7.7 g/dL 6.4-8.2 [facility] ([facility]) A/G Ratio 0.75 CALC 1.00-1.90 [facility]) Glomerular filtration rate/1.73 sq M pre dicted among non-blacks [Volume Rate/Area] in Serum or Plasma by Creatinine-based formula (MDRD) Laboratory test result [facility] Glomerular filtration rate/1.73 sq M pre dicted among blacks [Volume Rate/Area] in Serum or Plasma by Creatinine-based formula (MDRD) Laboratory test result [facility] ([facility]) <content>CHRONIC KIDNEY DISEASE STAGING PER NKF</content>
<content></content>
<content>STAGE I & II GFR >= 60 NORMAL TO MILDLY DECREASED</content>
<content>STAGE III GFR 30-59 MODERATELY DECREASED</content>
<content>STAGE IV GFR 15-29 SEVERELY DECREASED</content>
<content>STAGE V GFR <15 VERY LITTLE GFR LEFT</content>
<content>ESRD GFR <15 ON RESIDENTIAL INSTALLER</content>
<content></content> ID Date Data Source [id number] 09/08/2020 11:14:00 AM EDT [facility] Name Value Range Interpretation Code Description Data Yuridia rce(s) Supporting Document(s) Hemoglobin A1c/Hemoglobin.total in Blood 6.7 % [facility] ([facility]) Lab Result Notes: Pre-Diabetes 5.7 - 6.4 % Diabetes = or > 6.5% Glucose mean value [Mass/volume] in Blood Estimated fr om glycated hemoglobin 146 mg/dL 60-110 [facility] ID Date Data Source [id number] 09/08/2020 11:14:00 AM EDT [facility]) Name Value Range Interpretation Code Description Data Yuridia rce(s) Supporting Document(s) Erythrocytes [#/volume] in Blood by Automated count 4.88 x10*6/UL 4.2 0-6.30 [facility] ([facility]) Leukocytes [#/volume] in Blood by Automated count 10.3 x10*3/UL 4.1-1 0.9 [facility] ([facility]) MCV 94.7 fL 80.0-97.0 [facility]) Hemoglobin [Mass/volume] in Blood 15.9 g/dL 12.0-18.0 [facility] Hematocrit [Volume Fraction] of Blood by Automated count 46.2 % 3 7.0-51.0 [facility] MCHC 34.4 g/dL 31.0-38.0 [facility] ([facility]) MCH 32.6 pg 26.0-32.0 [facility] ([facility]) Platelets [#/volume] in Blood by Automated count 269 x10*3/UL 140-440 [facility] Erythrocyte distribution width [Ratio] by Automated count 12.2 % 11.6-13.7 [facility] MPV 8.5 FL 7.8-11.0 [facility] ([facility]) Lymph % 22.1 % 10.0-58.5 [facility] ([facility]) Mid % 5.8 % 1.7-9.3 [facility] ([facility]) Neut % 72.1 % 37.0-92.0 [facility] ([facility]) Mid # 0.7 x10*3/UL 0.1-0.6 [facility] ([facility]) Lymph # 2.2 x10*3/UL 0.6-4.1 [facility] ([facility]) Neut # 7.4 x10*3/UL 2.0-7.8 [facility] ID Date Data Source [id number] 08/23/2020 10:19:00 AM EDT [facility] ([facility] Name Value Range Interpretation Code Description Data Yuridia rce(s) Supporting Document(s) Influenza A Amplification Laboratory test result [facility] Negative results do not preclude influen za or RSV virus infection and should not be used as the sole basis for treatment or other patient management decisions. Influenza B Amplification Laboratory test result [facility] Negative results do not preclude influen za or RSV virus infection and should not be used as the sole basis for treatment or other patient management decisions. RSV Amplification Laboratory test result [facility] ([facility]) Negative results do not preclude influen za or RSV virus infection and should not be used as the sole basis for treatment or other patient management decisions. Laboratory test finding (navigational concept) Laboratory test result [facility] ([facility]) A false negative result may occur if a s pecimen is improperly collected, transported or handled. False [...] pathogens. DISCLAIMER: Testing was performed using the [employer] SARS-CoV-2 test. This test was developed and its performance characteristics determined by [employer]. This test has not been FDA cleared [...] the authorization is terminated or revoked sooner. ID Date Data Source [id number] 08/23/2020 10:19:00 AM EDT [facility] Name Value Range Interpretation Code Description Data Yuridia rce(s) Supporting Document(s) SARS coronavirus 2 RNA [Presence] in Res piratory specimen by KANA with probe detection NEGATIVE [facility] This lab was ordered by [facility] a nd reported by [facility]. ID Date Data Source [id number] 08/23/2020 08:27:00 AM EDT [facility] ([facility]) Name Value Range Interpretation Code Description Data Yuridia rce(s) Supporting Document(s) Laboratory test finding (navigational concept) 0.01 ng/mL 0.00-0.08 [facility] ID Date Data Source [id number] 08/23/2020 08:25:00 AM EDT [facility] ([facility] Name Value Range Interpretation Code Description Data Yuridia rce(s) Supporting Document(s) Laboratory test finding (navigational concept) 45.0 % 38.0-51.0 [facility] ([facility]) Laboratory test finding (navigational concept) 139 meq/L 136-145 [facility] Laboratory test finding (navigational concept) 158 mg/dL 70-105 [facility] ([facility]) Laboratory test finding (navigational concept) 4.4 meq/L 3.5-5.1 [facility] Laboratory test finding (navigational concept) 4.6 mg/dL 4.5-5.3 [facility] Laboratory test finding (navigational concept) 101 meq/L 98-109 [facility] Laboratory test finding (navigational concept) 31.0 MM/L 23.0-27.0 [facility] Laboratory test finding (navigational concept) 10 mg/dL 8-26 [facility] Laboratory test finding (navigational concept) 0.6 mg/dL 0.6-1.3 [facility] ([facility]) ID Date Data Source [id number] 08/23/2020 08:20:00 AM EDT [facility] ([facility]) Name Value Range Interpretation Code Description Data Yuridia rce(s) Supporting Document(s) Magnesium [Moles/volume] in Serum or Plasma 1.6 mg/dL 1.8-2.4 [facility] Natriuretic peptide.B prohormone N-Terminal [Mass/volu me] in Serum or Plasma 285 pg/mL [facility] Thyrotropin [Units/volume] in Serum or Plasma by Detec tion limit <= 0.05 mIU/L 0.774 uIU/ML 0.358-3.740 [facility] ID Date Data Source [id number] 08/23/2020 08:20:00 AM EDT [facility] Name Value Range Interpretation Code Description Data Yuridia rce(s) Supporting Document(s) Ast/Sgot 42 U/L 7-37 [facility]) Alt/SGPT 33 U/L 12-78 [facility] ([facility]) Alkaline Phosphatase 90 U/L 45-117 [facility] ([facility]) Bilirubin,Total 1.3 mg/dL 0.2-1.0 [facility] ([facility]) Bilirubin,Direct 0.6 mg/dL 0.0-0.2 [facility] ([facility]) Total Protein 7.7 GM/DL 6.4-8.2 [facility] ([facility]) Albumin 3.1 GM/DL 3.2-5.2 [facility] ([facility]) Albumin/Globulin Ratio 0.7 [facility] ([facility]) ID Date Data Source [id number] 08/23/2020 08:20:00 AM EDT [facility] ([facility]) Name Value Range Interpretation Code Description Data Yuridia rce(s) Supporting Document(s) Prothrombin Time 16.2 s 12.5-14.3 [facility] ([facility]) Inr 1.27 [facility] ([facility]) THERAPUTIC HUMAN INR VALUES INDICATIONS NORMAL RANGES PROPHYLAXIS/TREATMENT OF: VENOUS THROMBOSIS 2.0-3.0 PULMONARY EMBOLISM 2.0-3.0 PREVENTION OF SYSTEMIC EMBOLISM FROM: TISSUE HEART VALVES 2.0-3.0 ACUTE MYOCARDIAL INFARCTION 2.0-3.0 VALVULAR HEART DISEASE 2.0-3.0 ATRIAL FIBRILLATION 2.0-3.0 MECHANICAL VALVES(HIGH RISK) 2.5-3.5 RECURRENT MYOCARDIAL INFARCTION 2.5-3.5 ID Date Data Source [id number] 08/23/2020 08:20:00 AM EDT [facility] ([facility]) Name Value Range Interpretation Code Description Data Yuridia rce(s) Supporting Document(s) White Blood Count 7.8 10 4.0-10.0 [facility] ([facility]) Hematocrit 42.5 % 42.0-52.0 [facility] ([facility]) Hemoglobin 14.3 g/dL 13.5-17.5 [facility] ([facility]) Red Blood Count 4.28 10 4.30-6.10 [facility] ([facility]) Mean Corpuscular Volume 99.3 fl 80.0-96.0 [facility] ([facility]) Mean Corpuscular Hemoglobin 33.4 pg 27.0-33.0 [facility] ([facility]) Red Cell Distribution Width 12.3 % 11.5-14.5 [facility] ([facility]) Mean Corpuscular HGB Conc 33.6 g/dL 32.0-36.5 [facility] ([facility]) Platelet Count, Automated 164 10 150-450 [facility] ([facility]) Lymph % 23.1 % 24.0-44.0 [facility] Neutrophils % 62.1 % 36.0-66.0 [facility] ([facility]) [place] % 10.3 % 2.0-8.0 [facility] Baso % 1.4 % 0.0-1.0 [facility] Eos % 2.6 % 0.0-3.0 [facility]) Immature Granulocyte % 0.5 % 0-3.0 [facility] ([facility]) Neutrophils # 4.9 10 1.5-8.5 [facility] ([facility]) Nucleated Red Blood Cell % 0.0 % 0-0 [facility] ([facility]) Lymph # 1.8 10 1.5-5.0 [facility] Eos # 0.2 10 0.0-0.5 [facility] Baso # 0.1 10 0.0-0.2 [facility]) [place] # 0.8 10 0.0-0.8 [facility] ID Date Data Source [id number] 07/04/2020 12:00:00 AM EST [facility] Name Value Range Interpretation Code Description Data Yuridia rce(s) Supporting Document(s) SARS-CoV2 Rapid Antigen Negative [facility] This lab was ordered by [facility] and reported by [facility]. Procedure Social History Code Duration Value Status Description Data Source(s ) Alcohol intake 03/03/2021 12:00:00 AM EDT Ex-drinker (finding) comp leted Ex- drinker (finding) [facility] Alcohol intake 12/21/2020 12:00:00 AM EDT Ex-drinker (finding) comp leted Ex- drinker (finding) [facility] Alcohol intake 10/28/2020 12:00:00 AM EDT Current drinker of al cohol (finding) completed Current drinker of alcohol (finding) [facility] Vital Signs ID Date Data Source [id number] Name Value Range Interpretation Code Description Data Source(s) Systolic blood pressure 100 mm[Hg] 100 mm[Hg] DENISSE ([facility]) Diastolic blood pressure 72 mm[Hg] 72 mm[Hg] FREDA ([facility]) Heart rate 82 /min 82 /min [facility] Body height 70 [in_i] 70 [in_i] [facility] ([facility]) 5'10" Body weight 266.00 [lb_av] 266.00 [lb_av] [facility] T ([facility]) Body mass index (BMI) [Ratio] 38.2 kg/m2 38.2 k g/m2 [facility] [facility] Systolic blood pressure 110 mm[Hg] 110 mm[Hg] [facility] Diastolic blood pressure 68 mm[Hg] 68 mm[Hg] [facility] Heart rate 71 /min 71 /min [facility] Body height 172.7 cm 172.7 cm [facility] Body weight 118.389 kg 118.389 kg [facility] Body mass index (BMI) [Ratio] 39.68 kg/m2 39.68 kg/m2 [facility] Oxygen saturation in Arterial blood by Pulse oximetry 95 % 95 % [facility] Systolic blood pressure 102 mm[Hg] 102 mm[Hg] DENISSE ([facility]) Diastolic blood pressure 82 mm[Hg] 82 mm[Hg] MEDGIL ([facility]) Heart rate 58 /min 58 /min MEDENT ([facility]) Body height 70 [in_i] 70 [in_i] MEDENT ([facility]) 5'10" Body weight 262.00 [lb_av] 262.00 [lb_av] MEDEN T ([facility]) Oxygen saturation in Arterial blood by Pulse oximetry 99 % 99 % MEDENT ([facility]) RM Air Body mass index (BMI) [Ratio] 37.6 kg/m2 37.6 k g/m2 [facility] ([facility]) Body weight 266.00 [lb_av] 266.00 [lb_av] MEDEN T ([facility]) Systolic blood pressure 102 mm[Hg] 102 mm[Hg] [facility] ([facility]) Diastolic blood pressure 80 mm[Hg] 80 mm[Hg] [facility] Heart rate 81 /min 81 /min [facility]) Body height 70 [in_i] 70 [in_i] MEDENT ([facility]) 5'10" Oxygen saturation in Arterial blood by Pulse oximetry 99 % 99 % [facility] Body mass index (BMI) [Ratio] 38.2 kg/m2 38.2 k g/m2 MEDENT ([facility]) Body mass index (BMI) [Ratio] 35.7 kg/m2 35.7 k g/m2 [facility] Diastolic blood pressure 94 mm[Hg] 94 mm[Hg] [facility]) Systolic blood pressure 118 mm[Hg] 118 mm[Hg] [facility] ([facility]) Heart rate 73 /min 73 /min MEDENT ([facility]) Body height 70 [in_i] 70 [in_i] MEDENT ([facility]) 5'10" Body weight 249.00 [lb_av] 249.00 [lb_av] MEDEN T ([facility]) Oxygen saturation in Arterial blood by Pulse oximetry 98 % 98 % [facility] Body temperature 97.9 [degF] 97.9 [degF] MEDENT ([facility], ) Systolic blood pressure 100 mm[Hg] 100 mm[Hg] [facility] Diastolic blood pressure 70 mm[Hg] 70 mm[Hg] [facility] Heart rate 76 /min 76 /min [facility] Body height 172.7 cm 172.7 cm [facility] Body weight 109.861 kg 109.861 kg [facility] Body mass index (BMI) [Ratio] 36.83 kg/m2 36.83 kg/m2 [facility] Oxygen saturation in Arterial blood by Pulse oximetry 96 % 96 % [facility] Body temperature 98.7 [degF] 98.7 [degF] FREDA ([facility], ) Systolic blood pressure 118 mm[Hg] 118 mm[Hg] Lanny SALCEOD ([facility]) Diastolic blood pressure 62 mm[Hg] 62 mm[Hg] FREDA ([facility]) Heart rate 70 /min 70 /min FREDA ([facility]) Body height 70 [in_i] 70 [in_i] MEDENT ([facility]) 5'10" Body weight 240.00 [lb_av] 240.00 [lb_av] MEDEN T ([facility]) Body mass index (BMI) [Ratio] 34.4 kg/m2 34.4 k g/m2 [facility] Systolic blood pressure 110 mm[Hg] 110 mm[Hg] [facility] Diastolic blood pressure 80 mm[Hg] 80 mm[Hg] [facility] Heart rate 101 /min 101 /min [facility] Respiratory rate 18 /min 18 /min [facility] Body weight 111.585 kg 111.585 kg [facility] Body mass index (BMI) [Ratio] 37.40 kg/m2 37.40 kg/m2 [facility] Oxygen saturation in Arterial blood by Pulse oximetry 97 % 97 % [facility] Systolic blood pressure 135 mm[Hg] 135 mm[Hg] Lanny SALCEDO ([facility]) Diastolic blood pressure 93 mm[Hg] 93 mm[Hg] [facility] Oxygen saturation in Arterial blood by Pulse oximetry 97 % 97 % [facility] ([facility]) Respiratory rate 18 /min 18 /min [facility] ( [facility]) Heart rate 91 /min 91 /min [facility] ([facility]) Oxygen saturation in Arterial blood by Pulse oximetry 97 % 97 % [facility] ([facility]) [place] body weight 166 [lb_av] 166 [lb_av] MEDEN T ([facility]) Body weight 113.400 kg 113.400 kg [facility] ([facility]) Body temperature 97.2 [degF] 97.2 [degF] [facility] ([facility]) Body height 70 [in_i] 70 [in_i] [facility] 5'10" Body weight 250.00 [lb_av] 250.00 [lb_av] MEDEN T ([facility]) Body mass index (BMI) [Ratio] 35.9 kg/m2 35.9 k g/m2 [facility] ([facility]) [place] body weight 166 [lb_av] 166 [lb_av] MEDEN T ([facility]) Body weight 113.400 kg 113.400 kg [facility] ([facility]) Body surface area Derived from formula 2.29 m2 2.29 m2 [facility] ([facility]) Respiratory rate 18 /min 18 /min [facility] ( [facility]) Body temperature 97.2 [degF] 97.2 [degF] [facility] ([facility]) Body height 70 [in_i] 70 [in_i] [facility] ([facility]) 5'10" Body weight 250.00 [lb_av] 250.00 [lb_av] MEDEN T ([facility]) Body mass index (BMI) [Ratio] 35.9 kg/m2 35.9 k g/m2 [facility] ([facility]) Body surface area Derived from formula 2.29 m2 2.29 m2 [facility] ([facility]) Systolic blood pressure 113 mm[Hg] 113 mm[Hg] M EDENT ([facility]) Respiratory rate 17 /min 17 /min [facility] ( [facility]) Body height 70 [in_i] 70 [in_i] [facility] ([facility]) 5'10" Body weight 250.75 [lb_av] 250.75 [lb_av] MEDEN T ([facility]) Body mass index (BMI) [Ratio] 36.0 kg/m2 36.0 k g/m2 [facility] ([facility]) Diastolic blood pressure 73 mm[Hg] 73 mm[Hg] [facility] ([facility]) Heart rate 84 /min 84 /min [facility] ([facility]) Oxygen saturation in Arterial blood by Pulse oximetry 100 % 100 % [facility] ([facility]) Body temperature 95.4 [degF] 95.4 [degF] [facility] ([facility]) [place] body weight 166 [lb_av] 166 [lb_av] MEDEN T ([facility]) Body weight 113.740 kg 113.740 kg [facility] ([facility]) Body surface area Derived from formula 2.30 m2 2.30 m2 [facility] ([facility]) Systolic blood pressure 122 mm[Hg] 122 mm[Hg] [facility] Diastolic blood pressure 86 mm[Hg] 86 mm[Hg] [facility] ([facility]) Body height 70 [in_i] 70 [in_i] [facility] ([facility]) 5'10" Body weight 248.50 [lb_av] 248.50 [lb_av] MEDEN T ([facility]) Body mass index (BMI) [Ratio] 35.7 kg/m2 35.7 k g/m2 [facility] ([facility]) [place] body weight 166 [lb_av] 166 [lb_av] MEDEN T ([facility]) Body weight 112.720 kg 112.720 kg [facility] Body surface area Derived from formula 2.29 m2 2.29 m2 [facility] ([facility], ) Systolic blood pressure 118 mm[Hg] 118 mm[Hg] M EDENT ([facility]) Diastolic blood pressure 62 mm[Hg] 62 mm[Hg] [facility] ([facility]) Body weight 250.00 [lb_av] 250.00 [lb_av] MEDEN T ([facility]) Body mass index (BMI) [Ratio] 35.9 kg/m2 35.9 k g/m2 [facility] ([facility]) Heart rate 68 /min 68 /min [facility] ([facility]) Body height 70 [in_i] 70 [in_i] [facility] ([facility]) 5'10" Patient Treatment Plan of Care Planned Activity Planned Date Details Description Data Source (s) Lactulose 667 MG/ML Oral Solution 03/02/2021 12:00:00 AM EDT [facility] Furosemide 40 MG Oral Tablet 02/28/2021 12:00:00 AM EDT [facility] Metoprolol Tartrate 25 MG Oral Tablet 02/24/2021 12:00:00 AM EDT [facility] atorvastatin 20 MG Oral Tablet 02/24/2021 12:00:00 AM EDT [facility] apixaban 5 MG Oral Tablet 01/31/2021 12:00:00 AM EDT [facility] Cyclobenzaprine hydrochloride 10 MG Oral Tablet 01/02/2021 12:00:00 AM EDT [facility] Lisinopril 2.5 MG Oral Tablet 12/21/2020 12:00:00 AM EDT [facility] apixaban 5 MG Oral Tablet 12/15/2020 12:00:00 AM EDT [facility] Metoprolol Tartrate 50 MG Oral Tablet 10/28/2020 12:00:00 AM EDT [facility] Lisinopril 10 MG Oral Tablet 10/28/2020 12:00:00 AM EDT [facility] ropinirole 4 MG Oral Tablet 08/30/2020 12:00:00 AM EDT [facility] Metformin hydrochloride 1000 MG Oral Tablet 08/30/2020 12:00:00 AM EDT [facility] Magnesium Oxide 500 MG Oral Tablet 08/30/2020 12:00:00 AM EDT [facility] atorvastatin 40 MG Oral Tablet 08/30/2020 12:00:00 AM EDT [facility] Pravastatin Sodium 10 MG Oral Tablet 01/13/2020 12:00:00 AM EDT [facility] Metoprolol Tartrate 25 MG Oral Tablet 12/16/2019 12:00:00 AM EDT [facility] Hydrochlorothiazide 25 MG Oral Tablet 11/12/2019 12:00:00 AM EDT [facility] Lisinopril 10 MG Oral Tablet 11/12/2019 12:00:00 AM EDT [facility] Metformin hydrochloride 500 MG Oral Tablet 10/24/2019 12:00:00 AM E DT [facility]
--- OUTSIDE RECORDS SUMMARY | 2021-03-14 20:43 | CCD ---
Author Author [facility] Organization [facility] Address Unknown Phone Unavailable Care Team Providers Care Sr. Social Media & Mobile Manager Name Role Phone Isra Goldman MD Unavailable Unavailable Irsa Goldman MD Unavailable Unavailable Isra Goldman MD [...] Unavailable Isra Goldman MD Unavailable Unavailable Isra Goldmna MD Unavailable Unavailable Isra Goldman MD Unavailable [...] MD Unavailable Unavailable MollisonCheco MD Unavailable Unavailable MollisonCehco MD Unavailable Unavailable MollisonCheco MD Unavailable Unavailable [...] Unavailable Unavailable Lisseth, Christopher DO Unavailable Unavailable Sulphur [place], Christopher DO Unavailable Unavailable [place], Christopher DO Unavailable Unavailable [place], Christopher DO Unavailable Unavailable [place], Christopher DO Unavailable Unavailable Lisseth, Christopher DO Unavailable Unavailable [place], Christopher DO Unavailable Unavailable Milton Montanez DO [...] is protected by Article 27-F of the [facility] Public Health law. If you continue you may have access to information: Regarding HIV / AIDS; Provided by facilities licensed or operated by the [facility] Office of Mental Health; or Provided by the [facility] Office for People With Developmental Disabilities. If such information is present, then the following [facility] mandated warning applies: This information has been [...] law may result in a fine or senior care sentence or both. A general authorization for the release of medical or other information is NOT sufficient authorization for further disc losure. Family History Family Member Name Family Member Gender Family Member Status Date o f Status Description Data Source(s) Unknown Male Problem [facility] ([facility]) Unknown Male Problem [facility] ([facility]) Unknown Female Problem [facility] Encounters Encounter Providers Location Date Indications Data Source(s ) Outpatient Attender: MARY GRACE CASTANEDA.ELIUD-[email or web address].ELIUD 01:16:01 PM EDT - 03/03/2021 02:05:15 PM EDT [facility] Outpatient Attender: Milton Arboleda 03/03/2021 11:40:00 AM EDT [facility] ([facility] ) Outpatient Attender: Milton Arboleda 02/28/2021 10:40:00 AM EDT [facility] ([facility] ) Office Visit Attender: Marek Wagoner/Odell/Varghese/Re indl 02/21/2021 09:15:00 AM EDT [facility] ([facility]) Outpatient Attender: Shaileshluna Whitekaylabasil 01/31/2021 01:40:00 PM EDT [facility] ([facility] ) Outpatient Attender: Marek Wagoner/Odell/Varghese/Re indl 01/17/2021 02:00:00 PM EDT [facility] ([facility]) Outpatient Attender: MARY GRACE KEENANSJDorisELIUD 12:00:00 AM EDT - 12/21/2020 10:26:08 AM EDT [facility] Outpatient Attender: Marek Wagoner/Odell/Varghese/Re indl 12/20/2020 09:15:00 AM EDT [facility] ([facility]) Outpatient Attender: Marek Wagoner/Odell/Varghese/Re indl 12/15/2020 10:45:00 AM EDT [facility] ([facility]) Outpatient Attender: Nader Hurt 11/10 11:30:00 AM EDT [facility] ([facility] ) Outpatient Attender: MARY GRACE LYMAN-SJPYoELIUD 10/28/2020 12:00:00 AM EDT [facility] Outpatient Attender: Marek Wagoner/Odell/Varghese/Re indl 10/07/2020 02:15:00 PM EDT [facility] ([facility] Outpatient Attender: Marek Wagoner/Odell/Varghese/Re indl 09/22/2020 09:00:00 AM EDT [facility] ([facility]) Outpatient Attender: Nader Hurt 09/08 10:00:00 AM EDT [facility] ([facility] ) Immunizations Vaccine Date Status Description Data Source(s) COVID-19 VACCINE Moderna 10/07/2020 12:00:00 AM EDT completed [facility] Vaccine Series Complete: YESThis Data wa s Submitted to [facility]. COVID-19 VACCINE Moderna 09/09/2020 12:00:00 AM EDT completed [facility] Vaccine Series Complete: NOThis Data was Submitted to [facility]. Medications Medication Brand Name Start Date Product Form Dose Route Admi nistrative Instructions Pharmacy Instructions Status Indications Reaction Description Data Source(s) ferrous sulfate 325 MG Oral Tablet Ferrous Sulfate 03/08/2021 12:00 :00 AM EDT ORAL active [facility] ([facility]) Spironolactone 25 MG Oral Tablet Spironolactone 03/08/2021 12:00:00 A M EDT ORAL active [facility] ([facility]) Lactulose 667 MG/ML Oral Solution Lactulose Encephalop athy 10 GM/15ML SOLN Lactulose Encephalopathy 10 GM/15ML SOLN 03/02/2021 12:00:00 AM EDT active [facility] Lactulose 667 MG/ML Oral Solution Lactulose 03/01/2021 12:00:00 AM EDT ORAL active [facility] ([facility]) Furosemide 40 MG Oral Tablet furosemide (LASIX) 40 MG tablet furosemide (LASIX) 40 MG tablet 02/28/2021 12:00:00 AM EDT active [facility] Furosemide 40 MG Oral Tablet Furosemide 02/28/2021 12:00:00 AM EDT ORAL active [facility] ([facility]) atorvastatin 20 MG Oral Tablet atorvastatin (LIPITOR) 20 MG tablet atorvastatin (LIPITOR) 20 MG tablet 02/24/2021 12:00:00 AM EDT active [facility] Metoprolol Tartrate 25 MG Oral Tablet me toprolol tartrate (LOPRESSOR) 25 MG tablet metoprolol tartrate (LOPRESSOR) 25 MG tablet 02/24/2021 12:0 0:00 AM EDT 25 mg Oral active Take 25 mg by mo uth daily [facility] Acetaminophen 325 MG / Oxycodone Hydrochloride 5 MG Or al Tablet [Percocet] Percocet 02/08/2021 12:00:00 AM EDT ORAL completed [facility] ([facility] ) Metoprolol Tartrate 25 MG Oral Tablet Metoprolol Tartrate 12:00:00 AM EDT ORAL active [facility] ([facility]) apixaban 5 MG Oral Tablet Apixaban (ELIQUIS) 5 MG TABS tablet Apixaban (ELIQUIS) 5 MG TABS tablet 01/31/2021 12:00:00 AM EDT 5 mg Oral active Paroxysmal atrial fibrillation Take 1 tablet (5 mg total) by mouth 2 (t wo) times a day [facility] Paroxysmal atrial fibrillation Methylprednisolone 4 MG Oral Tablet Methylprednisolone 12/25 12:00:00 AM EDT active MEDENT ([facility] ) Cyclobenzaprine hydrochloride 10 MG Oral Tablet cyclobenzaprine (FLEXERIL) 10 MG tablet cyclobenzaprine (FLEXERIL) 10 MG tablet 01/02/2021 12:00:00 AM EDT active [facility] Cyclobenzaprine hydrochloride 10 MG Oral Tablet Cyclobenzapr ine HCL 01/02/2021 12:00:00 AM EDT ORAL active M EDENT ([facility], ) Lisinopril 2.5 MG Oral Tablet lisinopril (PRINIVIL,ZES TRIL) 2.5 MG tablet lisinopril (PRINIVIL,ZESTRIL) 2.5 MG tablet 12/21/2020 12:00:00 AM EDT 2.5 mg Oral aborted Type 2 diabetes mellitus without complication, without long- term current use of insulinHypertension, unspecified type Take 1 tablet (2.5 mg total) by mouth daily [facility] Type 2 diabetes mellitus without complic ation, without long-term current use of insulin Hypertension, unspecified type apixaban 5 MG Oral Tablet Apixaban (ELIQUIS) 5 MG TABS tablet Apixaban (ELIQUIS) 5 MG TABS tablet 12/15/2020 12:00:00 AM EDT 5 mg Oral active Take 1 tablet (5 mg total) by mouth 2 (two) times a day [facility] Suprep Bowel Prep Kit Suprep Bowel [...] mouth 2 ( two) times a day [facility] Hypertension, unspecified type Paroxysmal atrial fibrillation Lisinopril 10 MG Oral Tablet lisinopril (PRINIVIL,ZEST RIL) 10 MG tablet lisinopril (PRINIVIL,ZESTRIL) 10 MG tablet 10/28/2020 12:00:00 AM EDT 5 mg Oral aborted Take 0.5 tablets (5 mg total) by mouth daily [facility] atorvastatin 20 MG Oral Tablet Atorvastatin Calcium 09/01/2020 1 2:00:00 AM EDT ORAL active [facility] ( [facility]) MAGNESIUM GLUCONATE 500 MG Oral Tablet Magnesium Gluconate 0 09/01/2020 12:00:00 AM EDT active [facility] Metformin hydrochloride 1000 MG Oral Tablet Metformin HCL 09/01/2020 12:00:00 AM EDT ORAL active [facility] ropinirole 4 MG Oral Tablet Ropinirole HCL 09/01/2020 12:00:00 AM EDT ORAL active [facility] ([facility]) atorvastatin 40 MG Oral Tablet atorvastatin (LIPITOR) 40 MG tablet atorvastatin (LIPITOR) 40 MG tablet 08/30/2020 12:00:00 AM EDT 40 mg Oral active Take 40 mg by mouth daily [facility] Magnesium Oxide 500 MG Oral Tablet Magnesium Oxide 500 MG TABS Magnesium Oxide 500 MG TABS 08/30/2020 12:00:00 AM EDT 1 {tbl} Oral activ e Take 1 tablet by mouth daily [facility] Metformin hydrochloride 1000 MG Oral Tab let metFORMIN (GLUCOPHAGE) 1000 MG tablet metFORMIN (GLUCOPHAGE) 1000 MG tablet 08/30/2020 12:00:00 AM EDT 1000 mg Oral active Take 1,000 mg by mouth 2 (two) times a day with meals [facility] ropinirole 4 MG Oral Tablet rOPINIRole (REQUIP) 4 MG t ablet rOPINIRole (REQUIP) 4 MG tablet 08/30/2020 12:00:00 AM EDT 4 mg Oral active Take 4 mg by mouth nightly [facility] Pravastatin Sodium 10 MG Oral Tablet pravastatin (PRAV ACHOL) 10 MG tablet pravastatin (PRAVACHOL) 10 MG tablet 01/13/2020 12:00:00 AM EDT 10 mg Oral aborted Hypertension, unspecified ty peParoxysmal atrial fibrillationHyperlipidemia, unspecified hyperlipidemia type Take 1 tablet (10 mg total) by mouth nightly [facility] Hypertension, unspecified type Paroxysmal atrial fibrillation Hyperlipidemia, unspecified hyperlipidem ia type Metoprolol Tartrate 25 MG Oral Tablet me toprolol tartrate (LOPRESSOR) 25 MG tablet metoprolol tartrate (LOPRESSOR) 25 MG tablet 12/16/2019 12:0 0:00 AM EDT 25 mg Oral aborted Take 1 tablet (2 5 mg total) by mouth 2 (two) times a day [facility] Lisinopril 10 MG Oral Tablet lisinopril (PRINIVIL,ZEST RIL) 10 MG tablet lisinopril (PRINIVIL,ZESTRIL) 10 MG tablet 11/12/2019 12:00:00 AM EDT 10 mg Oral aborted Take 10 mg by mouth daily [facility] Hydrochlorothiazide 25 MG Oral Tablet hy drochlorothiazide (HYDRODIURIL) 25 MG tablet hydrochlorothiazide (HYDRODIURIL) 25 MG tablet 020 12:00:00 AM EDT 12.5 mg Oral aborted Take 12.5 mg by mouth daily [facility] Metformin hydrochloride 500 MG Oral Tablet metFORMIN ( GLUCOPHAGE) 500 MG tablet metFORMIN (GLUCOPHAGE) 500 MG tablet 10/24/2019 12:00:00 AM EDT 500 m g Oral aborted Take 500 mg by mouth 4 (four ) times a day [facility] Insurance Providers Payer name Policy type / Coverage type Policy ID Covered green party ID Covered green party's relationship to lopez Policy [place] Plan Information [place] [employer] Part B [id number] Family Dependent U [id number] [employer] [place] [employer] Part B [id number] Family Dependent U [id number] [employer] [place] [employer] Part B [id number] Family Dependent U [id number] [employer] [place] [employer] Part B [id number] Family Dependent U [id number] [employer] [place] [employer] Part B [id number] Family Dependent U [id number] [employer] [place] [employer] Part B [id number] Family Dependent U [id number] [employer] [place] [employer] Part B [id number] Family Dependent U [id number] [employer] [place] [employer] Part B [id number] Family Dependent U [id number] [employer] [place] [employer] Part B [id number] Family Dependent U [id number] MVP (pr) Commercial [id number] Self [id number] Stella (WC) Workers Compensation [id number] Self [id number] [facility] [id number] SP [id number] [facility] [id number] SP [id number] [facility] Healthcare Commercial [id number] Self [facility] Healthcare Commercial [id number] Self [id number] [place] [employer] Commercial [id number] Self [id number] [place] [employer] Commercial [id number] Self [employer] [id number] Deborah PYN [id number] [employer] [id number] [employer] B [id number] S PYN [id number] [employer] [place] Commercial [id number] Self P [id number] [employer] [place] Commercial [id number] Self P [id number] [employer] [place] Commercial [id number] Self P [id number] [employer] B [id number] S PYN [id number] [facility] O [id number] S 80 [id number] BCBS [place] PPO 302/307 [id number] SP [id number] [employer] Health Maintenance Organization (HMO) [id number] Self [id number] BCBS [place] 306/806 [id number] SP [id number] [employer] [place] Commercial [id number] Self P [id number] BCBS [place] PPO 302/307 [id number] SP [id number] [place]BS [place] PPO 302/307 [id number] SP [id number] [employer] [place] 306/806 [id number] SP [id number] Problems, Conditions, and Diagnoses Code Display Name Description Problem Type Effective Dates Data Source(s) E11.9 Type 2 diabetes mellitus without complic ations Type 2 diabetes mellitus without complic Diagnosis 12/21/2020 09:25:05 AM EDT [facility] G47.33 Obstructive sleep apnea (adult) (pediatr ic) Obstructive sleep apnea (adult) (pediatr Diagnosis 12/21/2020 09:25:05 AM EDT [facility] I10 Essential (primary) hypertension Essential (primary) h ypertension Diagnosis 12/21/2020 09:25:05 AM EDT [facility] K21.9 Gastro-esophageal reflux disease without esophagitis Gastro-esophageal reflux disease without Diagnosis 12/21/2020 09:25:05 AM EDT [facility] F32.9 Major depressive disorder, single episod e, unspecified Major depressive disorder, single episod Diagnosis 12/21/2020 09:25:05 AM EDT [facility] F41.9 Anxiety disorder, unspecified Anxiety disorder, unspec ified Diagnosis 12/21/2020 09:25:05 AM EDT [facility] E78.5 Hyperlipidemia, unspecified Hyperlipidemia, unspecifie d Diagnosis 12/21/2020 09:25:05 AM EDT [facility] I48.0 Paroxysmal atrial fibrillation Paroxysmal atrial fibri llation Diagnosis 12/21/2020 09:25:05 AM EDT [facility] K74.60 Cirrhosis Cirrhosis [id number] 03/03/2021 12:00:00 AM ED T [facility] Surgeries/Procedures Procedure Description Date Indications Data Source(s) OFFICE OUTPATIENT VISIT 25 MINUTES 03/03/2021 12:00:00 AM EDT [facility] ([facility]) OFFICE OUTPATIENT VISIT 25 MINUTES 02/28/2021 12:00:00 AM EDT [facility] ([facility]) TROPONIN QUANTITATIVE <td>TROPONIN I</td><td>Routine</td><td>02/23/2021</td><td></td><td> </td> 02/23/2021 12:00:00 AM EDT [facility] BLOOD COUNT COMPLETE AUTO&AUTO DIFRNTL WBC COUNT <td>C BC AND DIFFERENTIAL</td><td>Routine</td><td>02/23/2021</td><td></td><td> </td> 02/23/2021 12:00:00 AM EDT [facility] THYROID STIMULATING HORMONE TSH <td>TSH</td><td>Routine</td><td>02/23/2021</td><td></td><td> </td> 02/23/2021 12:00:00 AM EDT [facility] HEPATIC FUNCTION PANEL <td>HEPATIC FUNCTION PANEL</td><td>Routine</td><td>02/23/2021</td><td></td><td> </td> 02/23/2021 12:00:00 AM EDT [facility] BASIC METABOLIC PANEL CALCIUM TOTAL <td>BASIC METABOLI C PANEL</td><td>Routine</td><td>02/23/2021</td><td></td><td> </td> 02/23/2021 12:00:00 AM EDT [facility] ARTHROSCOPY SHOULDER DISTAL CLAVICULECTOMY 02/08/2021 12:00:00 AM EDT [facility] ([facility], ) SHOULDER SCOPE BONE SHAVING 02/08/2021 12:00:00 AM EDT [facility] ([facility], ) ARTHROSCOPY SHOULDER ROTATOR CUFF REPAIR 02/08/2021 12 :00:00 AM EDT [facility] ([facility], ) ECG ROUTINE ECG W/LEAST 12 LDS W/I&R 01/31/2021 12:00: 00 AM EDT [facility] ([facility]) OFFICE OUTPATIENT VISIT 25 MINUTES 01/31/2021 12:00:00 AM EDCleo [facility] ([facility]) OFFICE OUTPATIENT VISIT 25 MINUTES 01/17/2021 12:00:00 AM EDT [facility] ([facility]) OFFICE OUTPATIENT VISIT 15 MINUTES 12/20/2020 12:00:00 AM EDT [facility] ([facility]) OFFICE OUTPATIENT VISIT 25 MINUTES 12/20/2020 12:00:00 AM EDT [facility] ([facility]) Inject/Drain Arthrocentesis Major Joint/Bursa/Ganglion Cyst 12/15/2020 12:00:00 AM EDT [facility] ([facility]) OFFICE OUTPATIENT VISIT 25 MINUTES 12/15/2020 12:00:00 AM EDT [facility] ([facility]) OFFICE OUTPATIENT VISIT 25 MINUTES 11/10/2020 12:00:00 AM EDT [facility] ([facility]) Colonoscopy 11/09/2020 12:00:00 AM EDT DENISSE ([facility]) Colonoscopy Flexible Proximal To Splenic Flexure W/Biopsy Si ngle/ 11/09/2020 12:00:00 AM EDT [facility] ECG ROUTINE ECG W/LEAST 12 LDS W/I&R <td>POCT AMB EKG</td><td>Routine</td><td>10/28/2020</td><td> Paroxysmal atrial fibrillation Hypertension, unspecified type</td><td></td> 10/28/2020 12:00:00 AM EDT Hypertension, unspecified typeParoxysmal atrial fibrillation [facility] Hypertension, unspecified type Paroxysmal atrial fibrillation OFFICE OUTPATIENT VISIT 15 MINUTES 10/07/2020 12:00:00 AM EDT [facility] ([facility], ) OFFICE OUTPATIENT NEW 45 MINUTES 09/22/2020 12:00:00 A M EDT [facility] ([facility], ) Trans Care SRV W/I 14D Of DC, Comm W/I 2 Dys Med Rec 09/08/2020 12:00:00 AM EDT [facility] ([facility] ) Results ID Date Data Source [id number] 03/08/2021 11:38:00 AM EDT [facility] ([facility]) Name Value Range Interpretation Code Description Data Yuridia rce(s) Supporting Document(s) Magnesium 1.9 mg/dL 1.8-2.4 [facility]) ID Date Data Source [id number] 03/08/2021 11:38:00 AM EDT [facility] ([facility]) Name Value Range Interpretation Code Description Data Yuridia rce(s) Supporting Document(s) Glucose [Mass/volume] in Serum or Plasma 108 mg/dL 74-99 [facility] ([facility]) 100-125 mg/dL PRE-DIABETES/FASTING >126 mg/dL DIABETES/FASTING Creatinine 0.8 mg/dL 0.6-1.3 [facility] Urea nitrogen [Mass/volume] in Serum or Plasma 18 mg/dL 7-18 [facility] ([facility]) Sodium [Moles/volume] in Serum or Plasma 136 meq/L 136-145 [facility] ([facility]) Potassium [Moles/volume] in Serum or Plasma 4.3 meq/L 3.5-5.1 [facility] ([facility]) Calcium [Mass/volume] in Serum or Plasma 9.5 mg/dL 8.5-10.1 [facility] ([facility]) Carbon dioxide, total [Moles/volume] in Serum or Plasma 31 meq/L 21 -32 [facility] ([facility]) Chloride [Moles/volume] in Serum or Plasma 100 meq/L 98-107 [facility] Glomerular filtration rate/1.73 sq M pre dicted among non-blacks [Volume Rate/Area] in Serum or Plasma by Creatinine-based formula (MDRD) Laboratory test result [facility] Glomerular filtration rate/1.73 sq M pre dicted among blacks [Volume Rate/Area] in Serum or Plasma by Creatinine-based formula (MDRD) Laboratory test result [facility] <content>CHRONIC KIDNEY DISEASE STAGING PER NKF</content>
<content></content>
<content>STAGE I & II GFR >= 60 NORMAL TO MILDLY DECREASED</content>
<content>STAGE III GFR 30-59 MODERATELY DECREASED</content>
<content>STAGE IV GFR 15-29 SEVERELY DECREASED</content>
<content>STAGE V GFR <15 VERY LITTLE GFR LEFT</content>
<content>ESRD GFR <15 ON LINE SUPERVISOR</content>
<content></content> ID Date Data Source [id number] 03/03/2021 12:14:00 PM EDT [facility] Name Value Range Interpretation Code Description Data Yuridia rce(s) Supporting Document(s) Glucose [Mass/volume] in Serum or Plasma 175 mg/dL 74-99 [facility] ([facility]) 100-125 mg/dL PRE-DIABETES/FASTING >126 mg/dL DIABETES/FASTING Urea nitrogen [Mass/volume] in Serum or Plasma 21 mg/dL 7-18 [facility] ([facility]) Potassium [Moles/volume] in Serum or Plasma 4.4 meq/L 3.5-5.1 [facility] Creatinine 0.7 mg/dL 0.6-1.3 [facility] Sodium [Moles/volume] in Serum or Plasma 140 meq/L 136-145 [facility] ([facility]) Calcium [Mass/volume] in Serum or Plasma 9.2 mg/dL 8.5-10.1 [facility] ([facility]) Chloride [Moles/volume] in Serum or Plasma 104 meq/L 98-107 [facility] Carbon dioxide, total [Moles/volume] in Serum or Plasma 31 meq/L 21 -32 [facility] Glomerular filtration rate/1.73 sq M pre dicted among non-blacks [Volume Rate/Area] in Serum or Plasma by Creatinine-based formula (MDRD) Laboratory test result [facility] Glomerular filtration rate/1.73 sq M pre dicted among blacks [Volume Rate/Area] in Serum or Plasma by Creatinine-based formula (MDRD) Laboratory test result [facility] ([facility]) <content>CHRONIC KIDNEY DISEASE STAGING PER NKF</content>
<content></content>
<content>STAGE I & II GFR >= 60 NORMAL TO MILDLY DECREASED</content>
<content>STAGE III GFR 30-59 MODERATELY DECREASED</content>
<content>STAGE IV GFR 15-29 SEVERELY DECREASED</content>
<content>STAGE V GFR <15 VERY LITTLE GFR LEFT</content>
<content>ESRD GFR <15 ON LINE SUPERVISOR</content>
<content></content> ID Date Data Source [id number] 03/03/2021 12:14:00 PM EDT [facility]) Name Value Range Interpretation Code Description Data Yuridia rce(s) Supporting Document(s) Magnesium 1.5 mg/dL 1.8-2.4 [facility] ([facility]) ID Date Data Source [id number] 02/28/2021 11:23:00 AM EDT [facility] ([facility]) Name Value Range Interpretation Code Description Data Yuridia rce(s) Supporting Document(s) Inr 1.18 [facility] THERAPUTIC HUMAN INR VALUES INDICATIONS NORMAL RANGES PROPHYLAXIS/TREATMENT OF: VENOUS THROMBOSIS 2.0-3.0 PULMONARY EMBOLISM 2.0-3.0 PREVENTION OF SYSTEMIC EMBOLISM FROM: TISSUE HEART VALVES 2.0-3.0 ACUTE MYOCARDIAL INFARCTION 2.0-3.0 VALVULAR HEART DISEASE 2.0-3.0 ATRIAL FIBRILLATION 2.0-3.0 MECHANICAL VALVES(HIGH RISK) 2.5-3.5 RECURRENT MYOCARDIAL INFARCTION 2.5-3.5 Prothrombin Time 15.4 s 12.7-14.5 [facility] ([facility]) ID Date Data Source [id number] 02/28/2021 11:23:00 AM EDT [facility] ([facility]) Name Value Range Interpretation Code Description Data Yuridia rce(s) Supporting Document(s) Ammonia [Mass/volume] in Blood 48 uMOL/L [facility] ([facility]) ID Date Data Source [id number] 02/28/2021 11:23:00 AM EDT [facility] ([facility]) Name Value Range Interpretation Code Description Data Yuridia rce(s) Supporting Document(s) Total Iron Binding Capacity 456 ug/dL 250-450 [facility] ([facility]) Iron (Fe) 52 ug/dL 65-175 [facility] Percent Saturation 11.4 % 19.7-50.0 [facility] ([facility]) ID Date Data Source [id number] 02/28/2021 11:23:00 AM EDT [facility] ([facility]) Name Value Range Interpretation Code Description Data Yuridia rce(s) Supporting Document(s) Ferritin [Mass/volume] in Serum or Plasma 33 ng/mL 26-388 [facility] ([facility]) ID Date Data Source [id number] 02/28/2021 11:23:00 AM EDT [facility] ([facility]) Name Value Range Interpretation Code Description Data Yuridia rce(s) Supporting Document(s) Hepatitis C Virus Kelly Index 0.1 INDEX [facility] ([facility]) Negative Not infected with HCV, unless recent infection is suspected or other evidence exists to indicate HCV infection. Hepatitis B Core Antibody Igm Laboratory test result [facility] ([facility]) Hepatitis B Surface Antigen Laboratory test result [facility] ([facility]) Hepatitis A Antibody Igm Laboratory test result [facility] ([facility]) ID Date Data Source [id number] 02/28/2021 11:23:00 AM EDT [facility] ([facility]) Name Value Range Interpretation Code Description Data Yuridia rce(s) Supporting Document(s) Hepatitis B virus surface Ab [Presence] in Serum by Im munoassay Laboratory test result [facility] ([facility] ) ID Date Data Source [id number] 02/28/2021 11:21:00 AM EDT [facility] ([facility]) Name Value Range Interpretation Code Description Data Yuridia rce(s) Supporting Document(s) Hepatitis B virus surface Ab [Presence] in Serum by Im munoassay Laboratory test result [facility] ([facility] ) ID Date Data Source [id number] 02/28/2021 11:20:00 AM EDT [facility] Name Value Range Interpretation Code Description Data Yuridia rce(s) Supporting Document(s) Leukocytes [#/volume] in Blood by Automated count 9.2 x10*3/UL 4.1-10 .9 [facility] Erythrocytes [#/volume] in Blood by Automated count 4.40 x10*6/UL 4.2 0-6.30 [facility] ([facility]) Hemoglobin [Mass/volume] in Blood 12.8 g/dL 12.0-18.0 [facility] Hematocrit [Volume Fraction] of Blood by Automated count 38.8 % 3 7.0-51.0 [facility] ([facility]) MCH 29.1 pg 26.0-32.0 [facility]) MCHC 33.0 g/dL 31.0-38.0 [facility]) MCV 88.2 fL 80.0-97.0 [facility] ([facility]) Erythrocyte distribution width [Ratio] by Automated count 13.9 % 11.6-13.7 [facility] Platelets [#/volume] in Blood by Automated count 236 x10*3/UL 140-440 [facility] ([facility]) Mid % 5.1 % 1.7-9.3 [facility]) MPV 8.5 FL 7.8-11.0 [facility]) Lymph % 20.5 % 10.0-58.5 [facility]) Neut % 74.4 % 37.0-92.0 [facility]) Mid # 0.4 x10*3/UL 0.1-0.6 [facility] ([facility]) Lymph # 1.9 x10*3/UL 0.6-4.1 [facility] ([facility]) Neut # 6.9 x10*3/UL 2.0-7.8 [facility] ([facility]) ID Date Data Source [id number] 02/28/2021 11:20:00 AM EDT [facility] ([facility]) Name Value Range Interpretation Code Description Data Yuridia rce(s) Supporting Document(s) Glucose [Mass/volume] in Serum or Plasma 111 mg/dL 74-99 [facility] ([facility]) 100-125 mg/dL PRE-DIABETES/FASTING >126 mg/dL DIABETES/FASTING Urea nitrogen [Mass/volume] in Serum or Plasma 18 mg/dL 7-18 [facility] ([facility]) Creatinine 0.7 mg/dL 0.6-1.3 [facility] ([facility]) Potassium [Moles/volume] in Serum or Plasma 4.0 meq/L 3.5-5.1 [facility] ([facility]) Sodium [Moles/volume] in Serum or Plasma 140 meq/L 136-145 [facility] ([facility]) Chloride [Moles/volume] in Serum or Plasma 103 meq/L 98-107 [facility] ([facility]) Carbon dioxide, total [Moles/volume] in Serum or Plasma 29 meq/L 21 -32 [facility] ([facility]) Calcium [Mass/volume] in Serum or Plasma 9.5 mg/dL 8.5-10.1 [facility] ([facility]) Alkaline phosphatase isoenzyme [Units/volume] in Serum or Pl asma 63 mg/dL 46-116 [facility] ([facility]) Total Bilirubin 0.7 mg/dL 0.2-1.0 [facility] ([facility]) Alanine aminotransferase [Enzymatic activity/volume] in Seru m or Plasma 30 U/L 12-78 [facility] ([facility]) Aspartate aminotransferase [Enzymatic activity/volume] in Serum or Plasma 27 U/L 15-37 [facility] ([facility] ) Albumin [Mass/volume] in Serum or Plasma 3.3 g/dL 3.4-5.0 [facility] ([facility]) Proteinase 3 Ab [Units/volume] in Serum 7.6 g/dL 6.4-8.2 [facility] ([facility]) A/G Ratio 0.77 CALC 1.00-1.90 [facility] ([facility]) Glomerular filtration rate/1.73 sq M pre dicted among non-blacks [Volume Rate/Area] in Serum or Plasma by Creatinine-based formula (MDRD) Laboratory test result [facility] Glomerular filtration rate/1.73 sq M pre dicted among blacks [Volume Rate/Area] in Serum or Plasma by Creatinine-based formula (MDRD) Laboratory test result [facility] ([facility]) <content>CHRONIC KIDNEY DISEASE STAGING PER NKF</content>
<content></content>
<content>STAGE I & II GFR >= 60 NORMAL TO MILDLY DECREASED</content>
<content>STAGE III GFR 30-59 MODERATELY DECREASED</content>
<content>STAGE IV GFR 15-29 SEVERELY DECREASED</content>
<content>STAGE V GFR <15 VERY LITTLE GFR LEFT</content>
<content>ESRD GFR <15 ON LINE SUPERVISOR</content>
<content></content> ID Date Data Source [id number] 02/28/2021 11:20:00 AM EDT [facility] ([facility]) Name Value Range Interpretation Code Description Data Yuridia rce(s) Supporting Document(s) Urine Color Laboratory test result [facility] Urine PH 6.0 units 5.0-9.0 [facility]) Urine Appearance Laboratory test result [facility] Specific gravity of Urine 1.020 1.005-1.030 [facility] ([facility]) Urine Protein Laboratory test result 0-0 [facility] Urine Blood Laboratory test result [facility] Urine Leukocytes [facility] Glucose [Presence] in Urine [facility]) Urine Nitrite Laboratory test result [facility]) Urine Ketone Laboratory test result [facility] Bilirubin.total [Mass/volume] in Serum or Plasma Laboratory test resu lt [facility]) Urine Urobilinogen 0.2 mg/dL 0.2-1.0 [facility] ID Date Data Source [id number] 02/23/2021 09:02:00 PM EDT [facility]) Name Value Range Interpretation Code Description Data Yuridia rce(s) Supporting Document(s) Laboratory test finding (navigational concept) 0.01 ng/mL 0.00-0.08 [facility] ID Date Data Source [id number] 02/23/2021 06:29:00 PM EDT [facility] Name Value Range Interpretation Code Description Data Yuridia rce(s) Supporting Document(s) Laboratory test finding (navigational concept) 0.00 ng/mL 0.00-0.08 [facility] ID Date Data Source [id number] 02/23/2021 04:20:00 PM EDT [facility] Name Value Range Interpretation Code Description Data Yuridia rce(s) Supporting Document(s) Influenza A Amplification [facility] Negative results do not preclude influen za or RSV virus infection and should not be used as the sole basis for treatment or other patient management decisions. RSV Amplification Laboratory [facility] Negative results do not preclude influen za or RSV virus infection and should not be used as the sole basis for treatment or other patient management decisions. Influenza B Amplification [facility] Negative results do not preclude influen za or RSV virus infection and should not be used as the sole basis for treatment or other patient management decisions. Laboratory test finding (navigational concept) Laboratory test result [facility] A false negative result may [...] pathogens. DISCLAIMER: Testing was performed using the [employer] SARS-CoV-2 test. This test was developed and its performance characteristics determined by [employer]. This test has not been FDA cleared [...] or revoked sooner. ID Date Data Source [id number] 02/23/2021 04:20:00 PM EDT [facility] Name Value Range Interpretation Code Description Data Yuridia rce(s) Supporting Document(s) SARS coronavirus 2 RNA [Presence] in Res piratory specimen by KANA with probe detection NEGATIVE [facility] This lab was ordered by [facility] a nd reported by [facility]. ID Date Data Source [id number] 02/23/2021 04:12:00 PM EDT [facility] ([facility]) Name Value Range Interpretation Code Description Data Yuridia rce(s) Supporting Document(s) CK-MB Value Mass 3.3 ng/mL [facility] ([facility]) CPK Creatine Phosphokinase 102 U/L 39-308 [facility] MB/CK Relative Index 3.24 [facility] ([facility]) <content>DIAGNOSIS CRITERIA</content>
<content>MMB ng/ml Relative Index (RI)</content>
<content>NON-AMI < or = 5 N/A</content>
<content>ENRIQUEZ ZONE > 5 < or = 4</content>
<content>AMI > 5 > 4</content>
<content></content> Troponin I Laboratory test result [facility] ([facility]) <content>Troponin I Reference Interval f or Siemens Holiday LOCI:</content>
<content></content>
<content>99th Percentile= 0.00-0.045 ng/ml</content>
<content></content>
<content>Risk Stratification:</content>
<content><= 0.10 ng/ml Decreased Risk for Adverse Clinical</content>
<content>Events.</content>
<content>0.10-1.50 ng/ml Increased Risk for Adverse Clinical</content>
<content>Events. Evaluation of additional</content>
<content>criterion and/or repeat testing in 2-6</content>
<content>hours is suggested to rule out myocardial</content>
<content>damage.</content>
<content>>= 1.50 ng/ml Indicative of Myocardial Injury.</content>
<content></content> ID Date Data Source [id number] 02/23/2021 04:12:00 PM EDT [facility] ([facility]) Name Value Range Interpretation Code Description Data Yuridia rce(s) Supporting Document(s) Ast/Sgot 24 U/L 7-37 [facility] ([facility]) Alt/SGPT 32 U/L 12-78 [facility] ([facility]) Alkaline Phosphatase 67 U/L 45-117 [facility] ([facility]) Total Protein 7.2 GM/DL 6.4-8.2 [facility] Bilirubin,Total 0.9 mg/dL 0.2-1.0 [facility] ([facility]) Bilirubin,Direct 0.3 mg/dL 0.0-0.2 [facility]) Albumin/Globulin Ratio 0.8 [facility] ([facility]) Albumin 3.1 GM/DL 3.2-5.2 [facility]) ID Date Data Source [id number] 02/23/2021 04:12:00 PM EDT [facility] ([facility]) Name Value Range Interpretation Code Description Data Yuridia rce(s) Supporting Document(s) Lipoprotein lipase [Enzymatic activity/volume] in Serum or P lasma 249 U/L 73-393 [facility] ([facility]) Natriuretic peptide.B prohormone N-Terminal [Mass/volu me] in Serum or Plasma 303 pg/mL [facility] ([facility] ) Thyrotropin [Units/volume] in Serum or Plasma by Detec tion limit <= 0.05 mIU/L 1.080 uIU/ML 0.358-3.740 [facility] ([facility] ) Thyroxine (T4) free [Mass/volume] in Serum or Plasma 1.07 ng/dL 0.76- 1.46 [facility] ([facility]) ID Date Data Source [id number] 02/23/2021 04:12:00 PM EDT [facility] ([facility]) Name Value Range Interpretation Code Description Data Yuridia rce(s) Supporting Document(s) Hemoglobin 12.4 g/dL 13.5-17.5 [facility] White Blood Count 10.8 10 4.0-10.0 [facility] ([facility]) Red Blood Count 4.15 10 4.30-6.10 [facility] ([facility]) Mean Corpuscular Volume 92.5 fl 80.0-96.0 [facility] ([facility]) Hematocrit 38.4 % 42.0-52.0 [facility] Mean Corpuscular Hemoglobin 29.9 pg 27.0-33.0 [facility] ([facility]) Mean Corpuscular HGB Conc 32.3 g/dL 32.0-36.5 [facility] ([facility]) Platelet Count, Automated 211 10 150-450 [facility] ([facility]) Red Cell Distribution Width 13.8 % 11.5-14.5 [facility] ([facility]) [place] % 9.5 % 2.0-8.0 [facility]) Neutrophils % 66.8 % 36.0-66.0 [facility] ([facility]) Lymph % 19.9 % 24.0-44.0 [facility] Eos % 2.3 % 0.0-3.0 [facility] Baso % 1.1 % 0.0-1.0 [facility] Immature Granulocyte % 0.4 % 0-3.0 [facility] ([facility]) Nucleated Red Blood Cell % 0.0 % 0-0 [facility] ([facility]) Neutrophils # 7.2 10 1.5-8.5 [facility] ([facility]) Lymph # 2.1 10 1.5-5.0 [facility] Eos # 0.3 10 0.0-0.5 [facility] [place] # 1.0 10 0.0-0.8 [facility] Baso # 0.1 10 0.0-0.2 [facility] ID Date Data Source [id number] 02/23/2021 04:11:00 PM EDT [facility] ([facility]) Name Value Range Interpretation Code Description Data Yuridia rce(s) Supporting Document(s) Laboratory test finding (navigational concept) 0.00 ng/mL 0.00-0.08 [facility] ([facility]) ID Date Data Source [id number] 02/23/2021 04:10:00 PM EDT [facility] ([facility]) Name Value Range Interpretation Code Description Data Yuridia rce(s) Supporting Document(s) Laboratory test finding (navigational concept) 145 mg/dL 70-105 [facility] ([facility]) Laboratory test finding (navigational concept) 37.0 % 38.0-51.0 [facility] ([facility]) Laboratory test finding (navigational concept) 4.3 meq/L 3.5-5.1 [facility] Laboratory test finding (navigational concept) 138 meq/L 136-145 [facility] ([facility]) Laboratory test finding (navigational concept) 5.2 mg/dL 4.5-5.3 [facility] ([facility]) Laboratory test finding (navigational concept) 27.0 MM/L 23.0-27.0 [facility] ([facility]) Laboratory test finding (navigational concept) 100 meq/L 98-109 [facility] ([facility]) Laboratory test finding (navigational concept) 20 mg/dL 8-26 [facility] ([facility]) Laboratory test finding (navigational concept) 0.8 mg/dL 0.6-1.3 [facility] ([facility]) ID Date Data Source [id number] 01/31/2021 02:23:00 PM EDT [facility] ([facility]) Name Value Range Interpretation Code Description Data Yuridia rce(s) Supporting Document(s) Glucose [Mass/volume] in Serum or Plasma 75 mg/dL 74-99 [facility] ([facility]) 100-125 mg/dL PRE-DIABETES/FASTING >126 mg/dL DIABETES/FASTING Urea nitrogen [Mass/volume] in Serum or Plasma 14 mg/dL 7-18 [facility] ([facility]) Creatinine 0.7 mg/dL 0.6-1.3 [facility]) Sodium [Moles/volume] in Serum or Plasma 139 meq/L 136-145 [facility] ([facility]) Chloride [Moles/volume] in Serum or Plasma 103 meq/L 98-107 [facility] ([facility]) Potassium [Moles/volume] in Serum or Plasma 4.5 meq/L 3.5-5.1 [facility] ([facility]) Alkaline phosphatase isoenzyme [Units/volume] in Serum or Pl asma 63 mg/dL 46-116 [facility] ([facility]) Calcium [Mass/volume] in Serum or Plasma 9.5 mg/dL 8.5-10.1 [facility] ([facility]) Carbon dioxide, total [Moles/volume] in Serum or Plasma 30 meq/L 21 -32 [facility] ([facility]) Alanine aminotransferase [Enzymatic activity/volume] in Seru m or Plasma 35 U/L 12-78 [facility] ([facility]) Aspartate aminotransferase [Enzymatic activity/volume] in Serum or Plasma 27 U/L 15-37 [facility] ([facility] ) Total Bilirubin 0.8 mg/dL 0.2-1.0 [facility] ([facility]) Albumin [Mass/volume] in Serum or Plasma 3.4 g/dL 3.4-5.0 [facility] ([facility]) A/G Ratio 0.89 CALC 1.00-1.90 [facility]) Proteinase 3 Ab [Units/volume] in Serum 7.2 g/dL 6.4-8.2 [facility] ([facility]) Glomerular filtration rate/1.73 sq M pre dicted among non-blacks [Volume Rate/Area] in Serum or Plasma by Creatinine-based formula (MDRD) Laboratory test result [facility] Glomerular filtration rate/1.73 sq M pre dicted among blacks [Volume Rate/Area] in Serum or Plasma by Creatinine-based formula (MDRD) Laboratory test result [facility] ([facility]) <content>CHRONIC KIDNEY DISEASE STAGING PER NKF</content>
<content></content>
<content>STAGE I & II GFR >= 60 NORMAL TO MILDLY DECREASED</content>
<content>STAGE III GFR 30-59 MODERATELY DECREASED</content>
<content>STAGE IV GFR 15-29 SEVERELY DECREASED</content>
<content>STAGE V GFR <15 VERY LITTLE GFR LEFT</content>
<content>ESRD GFR <15 ON LINE SUPERVISOR</content>
<content></content> ID Date Data Source [id number] 01/31/2021 02:23:00 PM EDT [facility] ([facility]) Name Value Range Interpretation Code Description Data Yuridia rce(s) Supporting Document(s) Magnesium 1.6 mg/dL 1.8-2.4 [facility]) ID Date Data Source [id number] 01/31/2021 02:23:00 PM EDT [facility] ([facility] Name Value Range Interpretation Code Description Data Yuridia rce(s) Supporting Document(s) Hemoglobin A1c/Hemoglobin.total in Blood 6.9 % [facility] ([facility]) Lab Result Notes: Pre-Diabetes 5.7 - 6.4 % Diabetes = or > 6.5% Glucose mean value [Mass/volume] in Blood Estimated fr om glycated hemoglobin 151 mg/dL 60-110 [facility] ([facility] ) ID Date Data Source [id number] 01/31/2021 02:23:00 PM EDT [facility] Name Value Range Interpretation Code Description Data Yuridia rce(s) Supporting Document(s) Hemoglobin A1c/Hemoglobin.total in Blood Laboratory test result [facility] ([facility]) Magnesium, Serum Laboratory test result [facility] ([facility]) ID Date Data Source [id number] 11/10/2020 12:58:00 PM EDT [facility] ([facility]) Name Value Range Interpretation Code Description Data Yuridia rce(s) Supporting Document(s) Hemoglobin A1c/Hemoglobin.total in Blood 6.7 % [facility] ([facility]) Lab Result Notes: Pre-Diabetes 5.7 - 6.4 % Diabetes = or > 6.5% Glucose mean value [Mass/volume] in Blood Estimated fr om glycated hemoglobin 146 mg/dL 60-110 [facility] ([facility] ) ID Date Data Source [id number] 11/10/2020 12:58:00 PM EDT [facility] ([facility]) Name Value Range Interpretation Code Description Data Yuridia rce(s) Supporting Document(s) Hemoglobin [Mass/volume] in Blood 14.4 g/dL 12.0-18.0 [facility] Leukocytes [#/volume] in Blood by Automated count 9.0 x10*3/UL 4.1-10 .9 [facility] ([facility]) Erythrocytes [#/volume] in Blood by Automated count 4.70 x10*6/UL 4.2 0-6.30 [facility] ([facility]) MCH 30.7 pg 26.0-32.0 [facility] ([facility]) Hematocrit [Volume Fraction] of Blood by Automated count 43.1 % 3 7.0-51.0 [facility] ([facility]) MCV 91.7 fL 80.0-97.0 [facility] ([facility]) MCHC 33.5 g/dL 31.0-38.0 [facility] ([facility]) Erythrocyte distribution width [Ratio] by Automated count 12.9 % 11.6-13.7 [facility] ([facility]) MPV 8.2 FL 7.8-11.0 [facility] ([facility]) Platelets [#/volume] in Blood by Automated count 237 x10*3/UL 140-440 [facility] ([facility]) Lymph % 20.4 % 10.0-58.5 [facility] ([facility]) Mid % 5.7 % 1.7-9.3 [facility] ([facility]) Lymph # 1.8 x10*3/UL 0.6-4.1 [facility] ([facility]) Neut % 73.9 % 37.0-92.0 [facility] ([facility]) Neut # 6.6 x10*3/UL 2.0-7.8 [facility] ([facility]) Mid # 0.6 x10*3/UL 0.1-0.6 [facility] ([facility]) ID Date Data Source [id number] 11/10/2020 12:58:00 PM EDT [facility] ([facility]) Name Value Range Interpretation Code Description Data Yuridia rce(s) Supporting Document(s) Glucose [Mass/volume] in Serum or Plasma 104 mg/dL 74-99 [facility] ([facility]) 100-125 mg/dL PRE-DIABETES/FASTING >126 mg/dL DIABETES/FASTING Sodium [Moles/volume] in Serum or Plasma 137 meq/L 136-145 [facility] ([facility]) Creatinine 0.7 mg/dL 0.6-1.3 [facility] Urea nitrogen [Mass/volume] in Serum or Plasma 14 mg/dL 7-18 [facility] ([facility]) Potassium [Moles/volume] in Serum or Plasma 4.5 meq/L 3.5-5.1 [facility] ([facility]) Carbon dioxide, total [Moles/volume] in Serum or Plasma 28 meq/L 21 -32 [facility] ([facility]) Chloride [Moles/volume] in Serum or Plasma 103 meq/L 98-107 [facility] ([facility]) Total Bilirubin 0.9 mg/dL 0.2-1.0 [facility] ([facility]) Alkaline phosphatase isoenzyme [Units/volume] in Serum or Pl asma 67 mg/dL 46-116 [facility] ([facility]) Calcium [Mass/volume] in Serum or Plasma 9.8 mg/dL 8.5-10.1 [facility] ([facility]) Aspartate aminotransferase [Enzymatic activity/volume] in Serum or Plasma 24 U/L 15-37 [facility] ([facility] ) Alanine aminotransferase [Enzymatic activity/volume] in Seru m or Plasma 27 U/L 12-78 [facility] Albumin [Mass/volume] in Serum or Plasma 3.4 g/dL 3.4-5.0 [facility] ([facility]) A/G Ratio 0.85 CALC 1.00-1.90 [facility] ([facility]) Glomerular filtration rate/1.73 sq M pre dicted among non-blacks [Volume Rate/Area] in Serum or Plasma by Creatinine-based formula (MDRD) Laboratory test result [facility] Proteinase 3 Ab [Units/volume] in Serum 7.4 g/dL 6.4-8.2 [facility] Glomerular filtration rate/1.73 sq M pre dicted among blacks [Volume Rate/Area] in Serum or Plasma by Creatinine-based formula (MDRD) Laboratory test result [facility] ([facility]) <content>CHRONIC KIDNEY DISEASE STAGING PER NKF</content>
<content></content>
<content>STAGE I & II GFR >= 60 NORMAL TO MILDLY DECREASED</content>
<content>STAGE III GFR 30-59 MODERATELY DECREASED</content>
<content>STAGE IV GFR 15-29 SEVERELY DECREASED</content>
<content>STAGE V GFR <15 VERY LITTLE GFR LEFT</content>
<content>ESRD GFR <15 ON LINE SUPERVISOR</content>
<content></content> ID Date Data Source [id number] 11/10/2020 12:58:00 PM EDT [facility] ([facility]) Name Value Range Interpretation Code Description Data Yuridia rce(s) Supporting Document(s) Hemoglobin A1c/Hemoglobin.total in Blood Laboratory test result [facility] ([facility]) ID Date Data Source [id number] 11/09/2020 09:09:00 AM EDT [facility] ([facility], ) Name Value Range Interpretation Code Description Data Yuridia rce(s) Supporting Document(s) Surgical pathology study Laboratory test result [facility] ([facility], ) FINAL DIAGNOSIS Descending and rectum polyps, polypectomy: Hyperplastic poly, fragments. 11/10/2020 - 1000 CLINICAL DIAGNOSIS History colon cancer 11/09/2020 - 1450 GROSS DIAGNOSIS Received in formalin labeled "biopsy descending colon/polyps rectum" and consists of fragments of tissue, 0.2 x 0.1 x 0.1 cm. All in one. -OA 11/09/2020 - 1450 Signed MEGHAN HOLT MD 11/10/2020 1001 ID Date Data Source [id number] 11/04/2020 09:55:00 AM EDT [facility] Name Value Range Interpretation Code Description Data Yuridia rce(s) Supporting Document(s) SARS-CoV-2 (COVID-19) RNA [Presence] in Respiratory specimen by KANA with probe detection Not Detected [facility] This lab was ordered by [facility] and reported by [employer]. ID Date Data Source [id number] 09/08/2020 11:14:00 AM EDT [facility] ([facility]) Name Value Range Interpretation Code Description Data Yuridia rce(s) Supporting Document(s) Glucose [Mass/volume] in Serum or Plasma 113 mg/dL 74-99 [facility] ([facility]) 100-125 mg/dL PRE-DIABETES/FASTING >126 mg/dL DIABETES/FASTING Urea nitrogen [Mass/volume] in Serum or Plasma 14 mg/dL 7-18 [facility] ([facility]) Creatinine 0.8 mg/dL 0.6-1.3 [facility] ([facility]) Sodium [Moles/volume] in Serum or Plasma 135 meq/L 136-145 [facility] ([facility]) Potassium [Moles/volume] in Serum or Plasma 3.9 meq/L 3.5-5.1 [facility] ([facility]) Carbon dioxide, total [Moles/volume] in Serum or Plasma 30 meq/L 21 -32 [facility] ([facility]) Chloride [Moles/volume] in Serum or Plasma 99 meq/L 98-107 [facility] ([facility]) Calcium [Mass/volume] in Serum or Plasma 9.7 mg/dL 8.5-10.1 [facility] ([facility]) Total Bilirubin 1.1 mg/dL 0.2-1.0 [facility] ([facility]) Aspartate aminotransferase [Enzymatic activity/volume] in Serum or Plasma 42 U/L 15-37 [facility] ([facility] ) Alkaline phosphatase isoenzyme [Units/volume] in Serum or Pl asma 76 mg/dL 46-116 [facility] ([facility]) Albumin [Mass/volume] in Serum or Plasma 3.3 g/dL 3.4-5.0 [facility] ([facility]) Alanine aminotransferase [Enzymatic activity/volume] in Seru m or Plasma 59 U/L 12-78 [facility] ([facility]) Proteinase 3 Ab [Units/volume] in Serum 7.7 g/dL 6.4-8.2 [facility] ([facility]) A/G Ratio 0.75 CALC 1.00-1.90 [facility] ([facility]) Glomerular filtration rate/1.73 sq M pre dicted among non-blacks [Volume Rate/Area] in Serum or Plasma by Creatinine-based formula (MDRD) Laboratory test result [facility] ([facility] ) Glomerular filtration rate/1.73 sq M pre dicted among blacks [Volume Rate/Area] in Serum or Plasma by Creatinine-based formula (MDRD) Laboratory test result [facility] ([facility]) <content>CHRONIC KIDNEY DISEASE STAGING PER NKF</content>
<content></content>
<content>STAGE I & II GFR >= 60 NORMAL TO MILDLY DECREASED</content>
<content>STAGE III GFR 30-59 MODERATELY DECREASED</content>
<content>STAGE IV GFR 15-29 SEVERELY DECREASED</content>
<content>STAGE V GFR <15 VERY LITTLE GFR LEFT</content>
<content>ESRD GFR <15 ON LINE SUPERVISOR</content>
<content></content> ID Date Data Source [id number] 09/08/2020 11:14:00 AM EDT [facility]) Name Value Range Interpretation Code Description Data Yuridia rce(s) Supporting Document(s) Hemoglobin A1c/Hemoglobin.total in Blood 6.7 % [facility] ([facility]) Lab Result Notes: Pre-Diabetes 5.7 - 6.4 % Diabetes = or > 6.5% Glucose mean value [Mass/volume] in Blood Estimated fr om glycated hemoglobin 146 mg/dL 60-110 [facility] ([facility] ) ID Date Data Source [id number] 09/08/2020 11:14:00 AM EDT [facility]) Name Value Range Interpretation Code Description Data Yuridia rce(s) Supporting Document(s) Erythrocytes [#/volume] in Blood by Automated count 4.88 x10*6/UL 4.2 0-6.30 [facility] ([facility]) Leukocytes [#/volume] in Blood by Automated count 10.3 x10*3/UL 4.1-1 0.9 [facility] ([facility]) MCV 94.7 fL 80.0-97.0 [facility]) Hemoglobin [Mass/volume] in Blood 15.9 g/dL 12.0-18.0 [facility] ([facility]) Hematocrit [Volume Fraction] of Blood by Automated count 46.2 % 3 7.0-51.0 [facility] ([facility]) MCHC 34.4 g/dL 31.0-38.0 [facility] ([facility]) MCH 32.6 pg 26.0-32.0 [facility] ([facility]) Platelets [#/volume] in Blood by Automated count 269 x10*3/UL 140-440 [facility] ([facility]) Erythrocyte distribution width [Ratio] by Automated count 12.2 % 11.6-13.7 [facility] ([facility]) MPV 8.5 FL 7.8-11.0 [facility] ([facility]) Lymph % 22.1 % 10.0-58.5 [facility] ([facility]) Mid % 5.8 % 1.7-9.3 [facility] ([facility]) Neut % 72.1 % 37.0-92.0 [facility] ([facility]) Mid # 0.7 x10*3/UL 0.1-0.6 [facility] ([facility]) Lymph # 2.2 x10*3/UL 0.6-4.1 [facility] ([facility]) Neut # 7.4 x10*3/UL 2.0-7.8 [facility] ([facility]) ID Date Data Source [id number] 08/23/2020 10:19:00 AM EDT [facility] ([facility]) Name Value Range Interpretation Code Description Data Yuridia rce(s) Supporting Document(s) Influenza A Amplification Laboratory test result [facility] ([facility]) Negative results do not preclude influen za or RSV virus infection and should not be used as the sole basis for treatment or other patient management decisions. Influenza B Amplification Laboratory test result [facility] ([facility]) Negative results do not preclude influen za or RSV virus infection and should not be used as the sole basis for treatment or other patient management decisions. RSV Amplification Laboratory test result [facility] ([facility]) Negative results do not preclude influen za or RSV virus infection and should not be used as the sole basis for treatment or other patient management decisions. Laboratory test finding (navigational concept) Laboratory test result [facility] ([facility]) A false negative result may occur [...] pathogens. DISCLAIMER: Testing was performed using the [employer] SARS-CoV-2 test. This test was developed and its performance characteristics determined by [employer]. This test has not been FDA cleared [...] or revoked sooner. ID Date Data Source [id number] 08/23/2020 10:19:00 AM EDT [facility] Name Value Range Interpretation Code Description Data Yuridia rce(s) Supporting Document(s) SARS coronavirus 2 RNA [Presence] in Res piratory specimen by KANA with probe detection NEGATIVE [facility] This lab was ordered by [facility] a nd reported by [facility]. ID Date Data Source [id number] 08/23/2020 08:27:00 AM EDT [facility] ([facility]) Name Value Range Interpretation Code Description Data Yuridia rce(s) Supporting Document(s) Laboratory test finding (navigational concept) 0.01 ng/mL 0.00-0.08 [facility] ([facility]) ID Date Data Source [id number] 08/23/2020 08:25:00 AM EDT [facility] ([facility]) Name Value Range Interpretation Code Description Data Yuridia rce(s) Supporting Document(s) Laboratory test finding (navigational concept) 45.0 % 38.0-51.0 [facility] ([facility]) Laboratory test finding (navigational concept) 139 meq/L 136-145 [facility] ([facility]) Laboratory test finding (navigational concept) 158 mg/dL 70-105 [facility] ([facility]) Laboratory test finding (navigational concept) 4.4 meq/L 3.5-5.1 [facility] ([facility]) Laboratory test finding (navigational concept) 4.6 mg/dL 4.5-5.3 [facility] ([facility]) Laboratory test finding (navigational concept) 101 meq/L 98-109 [facility] ([facility]) Laboratory test finding (navigational concept) 31.0 MM/L 23.0-27.0 [facility] ([facility]) Laboratory test finding (navigational concept) 10 mg/dL 8-26 [facility] ([facility]) Laboratory test finding (navigational concept) 0.6 mg/dL 0.6-1.3 [facility] ([facility]) ID Date Data Source [id number] 08/23/2020 08:20:00 AM EDT [facility] ([facility]) Name Value Range Interpretation Code Description Data Yuridia rce(s) Supporting Document(s) Magnesium [Moles/volume] in Serum or Plasma 1.6 mg/dL 1.8-2.4 [facility] ([facility]) Natriuretic peptide.B prohormone N-Terminal [Mass/volu me] in Serum or Plasma 285 pg/mL [facility] ([facility] ) Thyrotropin [Units/volume] in Serum or Plasma by Detec tion limit <= 0.05 mIU/L 0.774 uIU/ML 0.358-3.740 [facility] ([facility] ) ID Date Data Source [id number] 08/23/2020 08:20:00 AM EDT [facility] ([facility]) Name Value Range Interpretation Code Description Data Yuridia rce(s) Supporting Document(s) Ast/Sgot 42 U/L 7-37 [facility] ([facility]) Alt/SGPT 33 U/L 12-78 [facility] ([facility]) Alkaline Phosphatase 90 U/L 45-117 [facility] ([facility]) Bilirubin,Total 1.3 mg/dL 0.2-1.0 [facility] ([facility]) Bilirubin,Direct 0.6 mg/dL 0.0-0.2 [facility] ([facility]) Total Protein 7.7 GM/DL 6.4-8.2 [facility] ([facility]) Albumin 3.1 GM/DL 3.2-5.2 [facility] ([facility]) Albumin/Globulin Ratio 0.7 [facility] ([facility]) ID Date Data Source [id number] 08/23/2020 08:20:00 AM EDT [facility] ([facility]) Name Value Range Interpretation Code Description Data Yuridia rce(s) Supporting Document(s) Prothrombin Time 16.2 s 12.5-14.3 [facility] ([facility]) Inr 1.27 [facility] ([facility]) THERAPUTIC HUMAN INR VALUES INDICATIONS NORMAL RANGES PROPHYLAXIS/TREATMENT OF: VENOUS THROMBOSIS 2.0-3.0 PULMONARY EMBOLISM 2.0-3.0 PREVENTION OF SYSTEMIC EMBOLISM FROM: TISSUE HEART VALVES 2.0-3.0 ACUTE MYOCARDIAL INFARCTION 2.0-3.0 VALVULAR HEART DISEASE 2.0-3.0 ATRIAL FIBRILLATION 2.0-3.0 MECHANICAL VALVES(HIGH RISK) 2.5-3.5 RECURRENT MYOCARDIAL INFARCTION 2.5-3.5 ID Date Data Source [id number] 08/23/2020 08:20:00 AM EDT [facility] ([facility]) Name Value Range Interpretation Code Description Data Yuridia rce(s) Supporting Document(s) White Blood Count 7.8 10 4.0-10.0 [facility] ([facility]) Hematocrit 42.5 % 42.0-52.0 [facility] ([facility]) Hemoglobin 14.3 g/dL 13.5-17.5 [facility] ([facility]) Red Blood Count 4.28 10 4.30-6.10 [facility] ([facility]) Mean Corpuscular Volume 99.3 fl 80.0-96.0 [facility] ([facility]) Mean Corpuscular Hemoglobin 33.4 pg 27.0-33.0 [facility] ([facility]) Red Cell Distribution Width 12.3 % 11.5-14.5 [facility] ([facility]) Mean Corpuscular HGB Conc 33.6 g/dL 32.0-36.5 [facility] NT ([facility]) Platelet Count, Automated 164 10 150-450 [facility] ([facility]) Lymph % 23.1 % 24.0-44.0 [facility]) Neutrophils % 62.1 % 36.0-66.0 [facility] ([facility]) [place] % 10.3 % 2.0-8.0 [facility] ([facility]) Baso % 1.4 % 0.0-1.0 [facility]) Eos % 2.6 % 0.0-3.0 [facility]) Immature Granulocyte % 0.5 % 0-3.0 [facility] ([facility]) Neutrophils # 4.9 10 1.5-8.5 [facility] ([facility]) Nucleated Red Blood Cell % 0.0 % 0-0 [facility] ([facility]) Lymph # 1.8 10 1.5-5.0 [facility] ([facility]) Eos # 0.2 10 0.0-0.5 [facility]) Baso # 0.1 10 0.0-0.2 [facility]) [place] # 0.8 10 0.0-0.8 [facility]) ID Date Data Source [id number] 07/04/2020 12:00:00 AM EST [facility] Name Value Range Interpretation Code Description Data Yuridia rce(s) Supporting Document(s) SARS-CoV2 Rapid Antigen Negative [facility] This lab was ordered by [facility] and reported by [facility]. Procedure Social History Code Duration Value Status Description Data Source(s ) Alcohol intake 03/03/2021 12:00:00 AM EDT Ex-drinker (finding) comp leted Ex- drinker (finding) [facility] Alcohol intake 12/21/2020 12:00:00 AM EDT Ex-drinker (finding) comp leted Ex- drinker (finding) [facility] Alcohol intake 10/28/2020 12:00:00 AM EDT Current drinker of al cohol (finding) completed Current drinker of alcohol (finding) [facility] Vital Signs ID Date Data Source [id number] Name Value Range Interpretation Code Description Data Source(s) Body weight 266.00 [lb_av] 266.00 [lb_av] SARKIS T ([facility]) Body mass index (BMI) [Ratio] 38.2 kg/m2 38.2 k g/m2 [facility] Systolic blood pressure 100 mm[Hg] 100 mm[Hg] DENISSE ([facility]) Diastolic blood pressure 72 mm[Hg] 72 mm[Hg] FREDA ([facility]) Heart rate 82 /min 82 /min [facility] Body height 70 [in_i] 70 [in_i] [facility] 5'10" Body mass index (BMI) [Ratio] 39.68 kg/m2 39.68 kg/m2 [facility] Systolic blood pressure 110 mm[Hg] 110 mm[Hg] [facility] Diastolic blood pressure 68 mm[Hg] 68 mm[Hg] [facility] Heart rate 71 /min 71 /min [facility] Body height 172.7 cm 172.7 cm [facility] Body weight 118.389 kg 118.389 kg [facility] Oxygen saturation in Arterial blood by Pulse oximetry 95 % 95 % [facility] Systolic blood pressure 102 mm[Hg] 102 mm[Hg] M DENISSE ([facility]) Diastolic blood pressure 82 mm[Hg] 82 mm[Hg] FREDA ([facility]) Heart rate 58 /min 58 /min [facility] ([facility]) Body height 70 [in_i] 70 [in_i] [facility] ([facility]) 5'10" Body weight 262.00 [lb_av] 262.00 [lb_av] MEDEN T ([facility]) Oxygen saturation in Arterial blood by Pulse oximetry 99 % 99 % [facility] ([facility]) RM Air Body mass index (BMI) [Ratio] 37.6 kg/m2 37.6 k g/m2 [facility] ([facility]) Body weight 266.00 [lb_av] 266.00 [lb_av] MEDEN T ([facility]) Body height 70 [in_i] 70 [in_i] [facility] ([facility]) 5'10" Oxygen saturation in Arterial blood by Pulse oximetry 99 % 99 % [facility] ([facility]) RM Air Body mass index (BMI) [Ratio] 38.2 kg/m2 38.2 k g/m2 [facility] ([facility]) Systolic blood pressure 102 mm[Hg] 102 mm[Hg] [facility] Diastolic blood pressure 80 mm[Hg] 80 mm[Hg] [facility] ([facility]) Heart rate 81 /min 81 /min [facility] ([facility]) Body mass index (BMI) [Ratio] 35.7 kg/m2 35.7 k g/m2 [facility] ([facility]) Diastolic blood pressure 94 mm[Hg] 94 mm[Hg] [facility] ([facility]) Systolic blood pressure 118 mm[Hg] 118 mm[Hg] M EDENT ([facility]) Heart rate 73 /min 73 /min [facility] ([facility]) Body height 70 [in_i] 70 [in_i] [facility] ([facility]) 5'10" Body weight 249.00 [lb_av] 249.00 [lb_av] MEDEN T ([facility]) Oxygen saturation in Arterial blood by Pulse oximetry 98 % 98 % [facility] ([facility]) Body temperature 97.9 [degF] 97.9 [degF] [facility] ([facility], ) Systolic blood pressure 100 mm[Hg] 100 mm[Hg] [facility] Diastolic blood pressure 70 mm[Hg] 70 mm[Hg] [facility] Heart rate 76 /min 76 /min [facility] Body height 172.7 cm 172.7 cm [facility] Body weight 109.861 kg 109.861 kg [facility] Body mass index (BMI) [Ratio] 36.83 kg/m2 36.83 kg/m2 [facility] Oxygen saturation in Arterial blood by Pulse oximetry 96 % 96 % [facility] Body temperature 98.7 [degF] 98.7 [degF] FREDA ([facility], ) Diastolic blood pressure 62 mm[Hg] 62 mm[Hg] [facility] ([facility]) Systolic blood pressure 118 mm[Hg] 118 mm[Hg] M EDENT ([facility]) Heart rate 70 /min 70 /min [facility] ([facility]) Body height 70 [in_i] 70 [in_i] [facility] ([facility]) 5'10" Body weight 240.00 [lb_av] 240.00 [lb_av] MEDEN T ([facility]) Body mass index (BMI) [Ratio] 34.4 kg/m2 34.4 k g/m2 [facility] ([facility]) Systolic blood pressure 110 mm[Hg] 110 mm[Hg] [facility] Diastolic blood pressure 80 mm[Hg] 80 mm[Hg] [facility] Heart rate 101 /min 101 /min [facility] Respiratory rate 18 /min 18 /min [facility] Body weight 111.585 kg 111.585 kg [facility] Body mass index (BMI) [Ratio] 37.40 kg/m2 37.40 kg/m2 [facility] Oxygen saturation in Arterial blood by Pulse oximetry 97 % 97 % [facility] Oxygen saturation in Arterial blood by Pulse oximetry 97 % 97 % FREDA ([facility]) Systolic blood pressure 135 mm[Hg] 135 mm[Hg] EDENT ([facility]) Diastolic blood pressure 93 mm[Hg] 93 mm[Hg] [facility] ([facility]) Respiratory rate 18 /min 18 /min [facility] ( [facility]) [place] body weight 166 [lb_av] 166 [lb_av] MEDEN T ([facility]) Oxygen saturation in Arterial blood by Pulse oximetry 97 % 97 % [facility] ([facility]) Heart rate 91 /min 91 /min [facility]) Body weight 113.400 kg 113.400 kg [facility] ([facility]) Body temperature 97.2 [degF] 97.2 [degF] [facility] ([facility]) Body height 70 [in_i] 70 [in_i] [facility]) 5'10" Body weight 250.00 [lb_av] 250.00 [lb_av] MED[facility] T ([facility]) Body mass index (BMI) [Ratio] 35.9 kg/m2 35.9 k g/m2 [facility] ([facility]) [place] body weight 166 [lb_av] 166 [lb_av] MED[facility] T ([facility]) Body weight 113.400 kg 113.400 kg [facility] ([facility]) Body surface area Derived from formula 2.29 m2 2.29 m2 [facility] ([facility]) Respiratory rate 18 /min 18 /min [facility] ( [facility]) Body temperature 97.2 [degF] 97.2 [degF] [facility] ([facility]) Body height 70 [in_i] 70 [in_i] [facility] ([facility]) 5'10" Body weight 250.00 [lb_av] 250.00 [lb_av] MED[facility] T ([facility]) Body mass index (BMI) [Ratio] 35.9 kg/m2 35.9 k g/m2 [facility] ([facility]) Body surface area Derived from formula 2.29 m2 2.29 m2 [facility] ([facility]) Systolic blood pressure 113 mm[Hg] 113 mm[Hg] M EDENT ([facility]) Respiratory rate 17 /min 17 /min [facility] ( [facility]) Body height 70 [in_i] 70 [in_i] [facility] ([facility]) 5'10" Body weight 250.75 [lb_av] 250.75 [lb_av] MED[facility] T ([facility]) Body mass index (BMI) [Ratio] 36.0 kg/m2 36.0 k g/m2 [facility] ([facility]) Diastolic blood pressure 73 mm[Hg] 73 mm[Hg] [facility] ([facility]) Heart rate 84 /min 84 /min [facility] ([facility]) Oxygen saturation in Arterial blood by Pulse oximetry 100 % 100 % [facility] ([facility]) Body temperature 95.4 [degF] 95.4 [degF] [facility] ([facility]) [place] body weight 166 [lb_av] 166 [lb_av] MED[facility] T ([facility]) Body weight 113.740 kg 113.740 kg [facility] ([facility]) Body surface area Derived from formula 2.30 m2 2.30 m2 [facility] ([facility]) Systolic blood pressure 122 mm[Hg] 122 mm[Hg] [facility] Diastolic blood pressure 86 mm[Hg] 86 mm[Hg] [facility] ([facility]) Body height 70 [in_i] 70 [in_i] [facility] ([facility]) 5'10" Body weight 248.50 [lb_av] 248.50 [lb_av] MED[facility] T ([facility]) Body mass index (BMI) [Ratio] 35.7 kg/m2 35.7 k g/m2 [facility] ([facility]) [place] body weight 166 [lb_av] 166 [lb_av] MED[facility] T ([facility]) Body weight 112.720 kg 112.720 kg [facility] Body surface area Derived from formula 2.29 m2 2.29 m2 [facility] ([facility], ) Systolic blood pressure 118 mm[Hg] 118 mm[Hg] M EDENT ([facility]) Diastolic blood pressure 62 mm[Hg] 62 mm[Hg] [facility] ([facility]) Body weight 250.00 [lb_av] 250.00 [lb_av] MEDEN T ([facility]) Body mass index (BMI) [Ratio] 35.9 kg/m2 35.9 k g/m2 [facility] ([facility]) Heart rate 68 /min 68 /min [facility] ([facility]) Body height 70 [in_i] 70 [in_i] [facility] ([facility]) 5'10" Patient Treatment Plan of Care Planned Activity Planned Date Details Description Data Source (s) Lactulose 667 MG/ML Oral Solution 03/02/2021 12:00:00 AM EDT [facility] Furosemide 40 MG Oral Tablet 02/28/2021 12:00:00 AM EDT [facility] Metoprolol Tartrate 25 MG Oral Tablet 02/24/2021 12:00:00 AM EDT [facility] atorvastatin 20 MG Oral Tablet 02/24/2021 12:00:00 AM EDT [facility] apixaban 5 MG Oral Tablet 01/31/2021 12:00:00 AM EDT [facility] Cyclobenzaprine hydrochloride 10 MG Oral Tablet 01/02/2021 12:00:00 AM EDT [facility] Lisinopril 2.5 MG Oral Tablet 12/21/2020 12:00:00 AM EDT [facility] apixaban 5 MG Oral Tablet 12/15/2020 12:00:00 AM EDT [facility] [facility] Metoprolol Tartrate 50 MG Oral Tablet 10/28/2020 12:00:00 AM EDT [facility] Lisinopril 10 MG Oral Tablet 10/28/2020 12:00:00 AM EDT [facility] ropinirole 4 MG Oral Tablet 08/30/2020 12:00:00 AM EDT [facility] Metformin hydrochloride 1000 MG Oral Tablet 08/30/2020 12:00:00 AM EDT [facility] Magnesium Oxide 500 MG Oral Tablet 08/30/2020 12:00:00 AM EDT [facility] atorvastatin 40 MG Oral Tablet 08/30/2020 12:00:00 AM EDT [facility] Pravastatin Sodium 10 MG Oral Tablet 01/13/2020 12:00:00 AM EDT [facility] Metoprolol Tartrate 25 MG Oral Tablet 12/16/2019 12:00:00 AM EDT [facility] Hydrochlorothiazide 25 MG Oral Tablet 11/12/2019 12:00:00 AM EDT [facility] Lisinopril 10 MG Oral Tablet 11/12/2019 12:00:00 AM EDT [facility] Metformin hydrochloride 500 MG Oral Tablet 10/24/2019 12:00:00 AM E DT [facility]
[2021-03-14 21:57] LABS: ALBUMIN 3.3 GM/DL (3.2-5.2); ALT/SGPT 30 U/L (12-78); BILIRUBIN,DIRECT 0.4 MG/DL (0.0-0.2); BLOOD UREA NITROGEN 17 MG/DL (7-18); CALCIUM LEVEL 9.3 MG/DL (8.5-10.1); CARBON DIOXIDE LEVEL 28 MEQ/L (21-32); CHLORIDE LEVEL 106 MEQ/L (98-107); CK-MB VALUE MASS 2.8 NG/ML (<3.6); CPK CREATINE PHOSPHOKINASE 128 U/L (39-308); CREATININE FOR GFR 0.74 MG/DL (0.70-1.30); GLOMERULAR FILTRATION RATE > 60.0 (>56); GLUCOSE, FASTING 91 MG/DL (70-100); LIPASE 411 U/L (73-393); MB/CK RELATIVE INDEX 2.19 (< OR =4); POTASSIUM SERUM 3.9 MEQ/L (3.5-5.1); SODIUM LEVEL 140 MEQ/L (136-145); TOTAL PROTEIN 7.4 GM/DL (6.4-8.2); TROPONIN I < 0.02 NG/ML (< 0.10)
[2021-03-14 22:01] LABS: BASO # 0.1 10^3/uL (0.0-0.2); EOS # 0.2 10^3/uL (0.0-0.5); EOS % 2.1 % (0.0-3.0); HEMATOCRIT 38.1 % (42.0-52.0); HEMOGLOBIN 12.2 g/dl (13.5-17.5); LYMPH # 2.4 10^3/uL (1.5-5.0); LYMPH % 22.6 % (24.0-44.0); MEAN CORPUSCULAR HEMOGLOBIN 29.8 pg (27.0-33.0); MEAN CORPUSCULAR VOLUME 92.9 fl (80.0-96.0); MONO # 1.2 10^3/uL (0.0-0.8); MONO % 11.4 % (2.0-8.0); NEUTROPHILS # 6.6 10^3/uL (1.5-8.5); NEUTROPHILS % 62.5 % (36.0-66.0); PLATELET COUNT, AUTOMATED 188 10^3/uL (150-450); WHITE BLOOD COUNT 10.5 10^3/uL (4.0-10.0)
[2021-03-14 22:23] LABS: INR 1.09; PROTHROMBIN TIME 14.5 SECONDS (12.7-14.5)
[2021-03-14 22:24] LABS: PARTIAL THROMBOPLASTIN TIME 37.8 SECONDS (25.9-37.0)
--- NOTE | 2021-03-14 23:20 | REPVR ---
PROCEDURE INFORMATION: Exam: CT Head Without Contrast Exam date and time: 03/14/2021 10:52 PM Age: 60 years old Clinical indication: Injury or trauma; Fall; Blunt trauma (contusions or hematomas); Additional info: Confusion, fall TECHNIQUE: Imaging protocol: Computed tomography of the head without contrast. Radiation optimization: All CT scans at this facility use at least one of these dose optimization techniques: automated exposure control; mA and/or kV adjustment per patient size (includes targeted exams where dose is matched to clinical indication); or iterative reconstruction. COMPARISON: No relevant prior studies available. FINDINGS: Brain: There is no evidence of intracranial bleed. Cerebral ventricles: Normal ventricles. Paranasal sinuses: Clear paranasal sinuses. Mastoid air cells: Clear mastoid air cells. Vasculature: There is a small density in the right CP angle and to exclude any possibility of a lesion recommend CT with IV contrast of the IAC's or an MRI scan including the IAC's with contrast. Bones/joints: There is no evidence of fracture. Soft tissues: Unremarkable. IMPRESSION: 1. No evidence of bleed. 2. 1 cm density at the right CP angle and IAC. To exclude any possibility of a nodule recommend CT with contrast of the IAC's or MRI to include the IAC's with contrast. Electronically signed by: Mendez Markham On 03/14/2021 23:20:10 PM
--- NOTE | 2021-03-14 23:48 | REPVR ---
PROCEDURE INFORMATION: Exam: XR Chest Exam date and time: 03/14/2021 10:51 PM Age: 60 years old Clinical indication: Other: AMS TECHNIQUE: Imaging protocol: XR of the chest. Views: 1 view. COMPARISON: CR PORTABLE CHEST X-RAY 02/23/2021 4:04 PM FINDINGS: Lungs: Clear appearing lungs. Pleural spaces: Unremarkable. No pleural effusion. No pneumothorax. Heart/Mediastinum: There is prominence of the left side of the heart. Bones/joints: Unremarkable. IMPRESSION: No acute findings. Electronically signed by: Mendez Markham On 03/14/2021 23:47:47 PM
[2021-03-15 00:05] LABS: ABG BASE EXCESS 1.6 (-2.0-2.0); ABG HCO3 25.5 MEQ/L (22.0-26.0); ABG O2 SATURATION 95.4 % (95.0-99.0); ABG PARTIAL PRESSURE CO2 37.6 mmHg (35.0-45.0); ABG PARTIAL PRESSURE O2 78.1 mmHg (75.0-100.0); ABG STANDARD HCO3 25.9 MEQ/L (22.0-26.0); ABG TOTAL CO2 26.6 MEQ/L (22.0-29.0); ABG pH (ARTERIAL) 7.449 UNITS (7.350-7.450)
[2021-03-15 00:24] LABS: RSV AMPLIFICATION NEGATIVE (NEGATIVE)
[2021-03-15] MEDS ORDERED: DEXTROSE 50% 50 ML SYRINGE IV PRN (02:45)
[2021-03-15] MEDS ORDERED: MAALOX 30 ML SUSP *UDC PO PRN (02:45)
[2021-03-15] MEDS ORDERED: MOM 30ML SUSPENSION UDC PO PRN (02:45)
[2021-03-15] MEDS ORDERED: GLUCOSE 4GM CHEW TABLET PO PRN (02:45)
[2021-03-15] MEDS ORDERED: GLUCAGON INJ 1MG VIAL SC PRN (02:45)
[2021-03-15] MEDS ORDERED: SPIR-10 PO (02:47)
[2021-03-15] MEDS ORDERED: ATOR1TAB21 PO (02:47)
[2021-03-15] MEDS ORDERED: ROPI4TAB3 PO (02:47)
[2021-03-15] MEDS ORDERED: METO50TA7 PO (02:47)
[2021-03-15] MEDS ORDERED: IBUP-1416 PO (02:47)
[2021-03-15] MEDS ORDERED: FURO40TA2 PO (02:47)
[2021-03-15] MEDS ORDERED: MAGN500T2 PO (02:47)
[2021-03-15] MEDS ORDERED: ACET25TA12 PO (02:47)
[2021-03-15] MEDS ORDERED: METF10004 PO (02:47)
[2021-03-15] MEDS ORDERED: LACT10SO3 PO (02:47)
[2021-03-15] MEDS ORDERED: MULTCHW12 PO ×2 (02:47)
[2021-03-15] MEDS ORDERED: FERR1TAB8 PO (02:47)
--- NOTE | 2021-03-15 02:48 | HPEPDOC ---
[facility] Medical History & Physical Date of Admission Mar 15, 2021 Date of Service: Mar 15, 2021 History and Physical CHIEF COMPLAINT: Waking up gasping for air HISTORY OF PRESENT ILLNESS: 60-year-old male history of atrial fibrillation, type 2 diabetes and obesity presents to the emergency department because he has been waking up over the past several weeks gasping for air several times over the course of the night ass ociated with anxiety and panic. He feels like he stops breathing at night and wakes up briefly. Short of breath which resolves after a few minutes. He states this happened 3 times last night. It often happens 1-2 times every night. He has previously used a CPAP machine but hasn't used it over the past 12 years as he states he cannot tolerate it. He denies shortness of breath at this time outside of those episodes he denies any chest pain or abdominal pain. He states he feels fairly comfortable right now. In the emergency department patient had a 20 sec asystole on monitor which corrected on its own his heart rate is currently 90 on monitor [place] was placed with demand pacing if his rate drops under 40. His plastic surgery specialist Dr. Mcarthur was contacted from the emergency department he recommended that his anticoagulation and metoprolol be held and that he will see him in the morning. Patient will be admitted to the ICU for further medical workup and management and close cardiac monitoring. 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 REVIEW OF SYSTEMS: 10 point review of systems complete all negative otherwise stated in HPI HOME MEDICATIONS: Please see below. PHYSICAL EXAMINATION: Constitutional: Awake and alert, in no apparent distress ENT: Sclera are clear. Mucosa is moist. Respiratory: Lungs CTA bilaterally. No respiratory distress. No use of accessory muscles. Cardiovascular: Irregular heart rate no JVD. Heart rate 92 and monitor. Gastrointestinal: Abdomen is soft, obese, non distended, non tender, BS present. Musculoskeletal: 2+ lower extremity edema up to knees bilaterally Neurologic: No focal neurological deficit. Mental Status: A&O x3, normal affect LABORATORY DATA: See below. IMAGING: See chart MICROBIOLOGY: Please see below. ASSESSMENT/PLAN 60-year-old male history of A. fib, diabetes, obesity presents due to apneic episodes that wake him up from his sleep in a panic which have been happening more frequently in the emergency department he had an episode of asystole l asting for 20 seconds patient admitted to the ICU for further medical workup and management. # Asystole: Patient had a 20 second pause on monitor in the emergency department which resolved on its own. Patient admitted to the ICU with cardiac monitoring patient's plastic surgery specialist Dr. Mcarthur advised to hold metoprolol and anticoagulation and he will be seeing him in the morning. Patient has life pack in place with demand pacing to kick in if heart rate drops less than 40. Fu Mg. 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 Previously had CPAP but hasn't used in the past 12 years. will need to follow-up with pulmonology needs sleep study. # Pitting lower extremity edema: Started on IV Lasix. Follow-up echo. Continue Spironolactone. # Elevated lipase: 411 on admission however no abdominal symptoms could be reactive. # DM: ISS. Frequent Accu-Cheks. Hypoglycemic precautions. # A fib: given asystole episode; per Dr Mcarthur metoprolol and eliquis on hold until he sees the patient. # DVT prophylaxis: Heparin A Yousef Hospitalist Vital Signs Vital Signs Date Time Temp Pulse Resp B/P (MAP) Pulse Ox O2 Delivery O2 Flow Rate FiO2 03/15/21 01:46 98 16 125/83 (97) 98 Room Air 03/14/21 14:00 97.6 Laboratory Data Labs 24H Laboratory Tests 2 03/14/21 21:10: Immature Granulocyte % (Auto) 0.4, Neutrophils (%) (Auto) 62.5, Lymphocytes (%) (Auto) 22.6L, Monocytes (%) (Auto) 11.4H, Eosinophils (%) (Auto) 2.1, Basophils (%) (Auto) 1.0, Neutrophils # (Auto) 6.6, Lymphocytes # (Auto) 2.4, Monocytes # (Auto) 1.2H, Eosinophils # (Auto) 0.2, Basophils # (Auto) 0.1, Nucleated Red Blo od Cells % (auto) 0.0, Prothrombin Time 14.5H, Prothromb Time International Ratio 1.09, Activated Partial Thromboplast Time 37.8, Urine Color [place], Urine Appearance CLEAR, Urine pH 5.0, Urine Specific [place] 1.029, Urine Protein 1+H, Urine Glucose (UA) NEGATIVE, Urine Ketones TRACEH, Urine Blood NEGATIVE, Urine Nitrite NEGATIVE, Urine Bilirubin NEGATIVE, Urine Urobilinogen 4.0H, Urine Leukocyte Esterase NEGATIVE, Urine WBC (Auto) 5H, Urine RBC (Auto) 0, Urine Hyaline Casts (Auto) 0, Urine Bacteria (Auto) NEGATIVE, Urine Squamous Epithelial Cells 0, Urine Mucus (Auto) SMALL, Urine Sperm (Auto) , Anion Gap 6L, Glomerular Filtration Rate > 60.0, Lactic Acid Level 0.9, Calcium Level 9.3, Total Bilirubin 1.0, Direct Bilirubin 0.4H, Aspartate Amino Transf (AST/SGOT) 21, Alanine Aminotransferase (ALT/SGPT) 30, Alkaline Phosphatase 70, Ammonia 40H, Total Creatine Kinase 128, Creatine Kinase MB 2.8, Creatine Kinase MB Relative Index 2.19, Troponin I < 0.02, Total Protein 7.4, Albumin 3.3, Alb umin/Globulin Ratio 0.8, Lipase 411H 03/14/21 23:36: Coronavirus (COVID-19)(PCR) NEGATIVE, Influenza Type A (RT-PCR) NEGATIVE, Influenza Type B (RT-PCR) NEGATIVE, Respiratory Syncytial Virus (PCR) NEGATIVE 03/14/21 23:38: Blood Gas Bicarbonate Standard 25.9, Arterial Blood pH 7.449, Arterial Blood Partial Pressure CO2 37.6, Arterial Blood Partial Pressure O2 78.1, Arterial Blood Total CO2 26.6, Arterial Blood HCO3 25.5, Arterial Blood Base Excess 1.6, Arterial Blood Oxygen Saturation 95.4 CBC/BMP Laboratory Tests 03/14/21 21:10 Home Medications Scheduled Acetaminophen/Diphenhydramine (Acetaminophen Pm Caplet) 1 Each Tablet, 2 TAB PO Q2D EVERY OTHER NIGHT Apixaban (Eliquis) 5 Mg Tablet, 5 MG PO BID Atorvastatin Calcium (Atorvastatin Calcium) 20 Mg Tablet, 20 MG PO DAILY Ferrous Sulfate (Ferrous Sulfate) 325 Mg Tablet, 325 MG PO DAILY Folic Acid/Multivit-Min/Lutein (Multi-Vitamin Gummies) 1 Each Tab.chew, 2 CHW PO DAILY Folic Acid/Multivit-Min/Lutein (Multi-Vitamin Gummies) 1 Each Tab.chew, 1 CHW PO QHS Furosemide (Furosemide) 40 Mg Tablet, 40 MG PO DAILY Ibuprofen/Diphenhydramine Cit (Ibuprofen Pm Caplet) 1 Each Tablet, 2 TAB PO Q2D EVERY OTHER NIGHT Lactulose (Lactulose) 10 Gm/15 Ml Solution, 30 GM PO TID Magnesium Oxide (Magnesium Oxide) 500 Mg Tablet, 500 MG PO BID Metformin HCl (Metformin HCl) 1,000 Mg Tablet, 1,000 MG PO BID Metoprolol Tartrate (Metoprolol Tartrate) 25 Mg Tablet, 25 MG PO BID TAKES WITH 50MG FOR 75MG TOTAL Metoprolol Tartrate (Metoprolol Tartrate) 50 Mg Tablet, 50 MG PO BID TAKES WITH 25MG FOR 75MG TOTAL Omeprazole (Omeprazole) 20 Mg Capsule.dr, 20 MG PO DAILY Ropinirole HCl (Ropinirole HCl) 4 Mg Tablet, 4 MG PO QHS Sertraline HCl (Sertraline HCl) 50 Mg Tablet, 50 MG PO DAILY Spironolactone (Spironolactone) 25 Mg Tablet, 12.5 MG PO DAILY Allergies Coded Allergies: No Known Allergies (Verified , 02/01/21) EDWIN GALLAGHER MD Mar 15, 2021 02:47
[2021-03-15] MEDS ORDERED: HOME MED LIST COMPLETE! XX SCH (02:50)
--- OUTSIDE RECORDS SUMMARY | 2021-03-15 03:08 | CCD ---
Author Author [facility] Organization [facility] Address Unknown Phone Unavailable Care Team Providers Care Assessment Coordinator Name Role Phone Isra Goldman MD Unavailable [...] White, F Nader Unavailable Unavailable White F Naedr Unavailable Unavailable White F Nader Unavailable Unavailable [...] Unavailable Unavailable Lisseth, Christopher DO Unavailable Unavailable Lincoln, Christopher DO Unavailable Unavailable Lincoln, Christopher DO Unavailable Unavailable Lincoln, Christopher DO Unavailable Unavailable Lincoln, Christopher DO Unavailable Unavailable Lisseth, Christopher DO Unavailable Unavailable Lincoln, Christopher DO Unavailable Unavailable Milton Montanez DO [...] is protected by Article 27-F of the [facility] Public Health law. If you continue you may have access to information: Regarding HIV / AIDS; Provided by facilities licensed or operated by the [facility] Office of Mental Health; or Provided by the [facility] Office for People With Developmental Disabilities. If such information is present, then the following [facility] mandated warning applies: This information has [...] law may result in a fine or retirement sentence or both. A general authorization for the release of medical or other information is NOT sufficient authorization for further disc losure. Family History Family Member Name Family Member Gender Family Member Status Date o f Status Description Data Source(s) Unknown Male Problem [facility] ([facility]) Unknown Male Problem [facility] ([facility]) Unknown Female Problem [facility] Encounters Encounter Providers Location Date Indications Data Source(s ) Outpatient Attender: MARY GRACE CASTANEDA.[email or web address] 01:16:01 PM EDT - 03/03/2021 02:05:15 PM EDT [facility] Outpatient Attender: Milton Arboleda 03/03/2021 11:40:00 AM EDT [facility] ([facility] ) Outpatient Attender: Milton Arboleda 02/28/2021 10:40:00 AM EDT [facility] ([facility] ) Office Visit Attender: Marek Wagoner/Pimento/Varghese/Re indl 02/21/2021 09:15:00 AM EDT [facility] ([facility]) Outpatient Attender: Shaileshluna Whitekaylabasil 01/31/2021 01:40:00 PM EDT [facility] ([facility] ) Outpatient Attender: Marek Wagoner/Pimento/Varghese/Re indl 01/17/2021 02:00:00 PM EDT [facility] ([facility]) Outpatient Attender: MARY GRACE KEENANSJDorisELIUD 12:00:00 AM EDT - 12/21/2020 10:26:08 AM EDT [facility] Outpatient Attender: Marek Wagoner/Pimento/Varghese/Re indl 12/20/2020 09:15:00 AM EDT [facility] ([facility]) Outpatient Attender: Marek Wagoner/Pimento/Varghese/Re indl 12/15/2020 10:45:00 AM EDT [facility] ([facility]) Outpatient Attender: Nader Hurt 11/10 11:30:00 AM EDT [facility] ([facility] ) Outpatient Attender: MARY GRACE LYMAN-SJPYoELIUD 10/28/2020 12:00:00 AM EDT [facility] Outpatient Attender: Marek Wagoner/Pimento/Varghese/Re indl 10/07/2020 02:15:00 PM EDT [facility] ([facility]) Outpatient Attender: Marek Wagoner/Pimento/Varghese/Re indl 09/22/2020 09:00:00 AM EDT [facility] ([facility]) Outpatient Attender: Nader Hurt 09/08 10:00:00 AM EDT [facility] ([facility] ) Immunizations Vaccine Date Status Description Data Source(s) COVID-19 VACCINE Moderna 10/07/2020 12:00:00 AM EDT completed [facility] Vaccine Series Complete: YESThis Data wa s Submitted to [facility] Via [facility]. COVID-19 VACCINE Moderna 09/09/2020 12:00:00 AM EDT completed [facility] Vaccine Series Complete: NOThis Data was Submitted to [facility] Via [facility]. Medications Medication Brand Name Start Date Product Form Dose Route Admi nistrative Instructions Pharmacy Instructions Status Indications Reaction Description Data Source(s) ferrous sulfate 325 MG Oral Tablet Ferrous Sulfate 03/08/2021 12:00 :00 AM EDT ORAL active [facility] ([facility] Spironolactone 25 MG Oral Tablet Spironolactone 03/08/2021 12:00:00 A M EDT ORAL active [facility] ([facility]) Lactulose 667 MG/ML Oral Solution Lactulose Encephalop athy 10 GM/15ML SOLN Lactulose Encephalopathy 10 GM/15ML SOLN 03/02/2021 12:00:00 AM EDT active [facility] Lactulose 667 MG/ML Oral Solution Lactulose 03/01/2021 12:00:00 AM EDT ORAL active [facility] ([facility]) Furosemide 40 MG Oral Tablet furosemide (LASIX) 40 MG tablet furosemide (LASIX) 40 MG tablet 02/28/2021 12:00:00 AM EDT active [facility] Furosemide 40 MG Oral Tablet Furosemide 02/28/2021 12:00:00 AM EDT ORAL active [facility] ([facility]) atorvastatin 20 MG Oral Tablet atorvastatin [...] 02/08/2021 12:00:00 AM EDT ORAL completed [facility] ([facility], ) Metoprolol Tartrate 25 MG Oral Tablet Metoprolol Tartrate 12:00:00 AM EDT ORAL active [facility] ([facility]) apixaban 5 MG Oral Tablet Apixaban (ELIQUIS) 5 MG TABS tablet Apixaban (ELIQUIS) 5 MG TABS tablet 01/31/2021 12:00:00 AM EDT 5 mg Oral active Paroxysmal atrial fibrillation Take 1 tablet (5 mg total) by mouth 2 (t wo) times a day [facility] Paroxysmal atrial fibrillation Methylprednisolone 4 MG Oral Tablet Methylprednisolone 12/25 12:00:00 AM EDT active MED[facility] ([facility], ) Cyclobenzaprine hydrochloride 10 MG Oral Tablet cyclobenzaprine (FLEXERIL) 10 MG tablet cyclobenzaprine (FLEXERIL) 10 MG tablet 01/02/2021 12:00:00 AM EDT active [facility] Cyclobenzaprine hydrochloride 10 MG Oral Tablet Cyclobenzapr ine HCL 01/02/2021 12:00:00 AM EDT ORAL active M EDENT ([facility], ) Lisinopril 2.5 MG Oral Tablet lisinopril [...] 2:00:00 AM EDT ORAL active [facility] ( [facility]) MAGNESIUM GLUCONATE 500 MG Oral Tablet Magnesium Gluconate 0 09/01/2020 12:00:00 AM EDT active [facility] Metformin hydrochloride 1000 MG Oral Tablet Metformin HCL 09/01/2020 12:00:00 AM EDT ORAL active [facility] ropinirole 4 MG Oral Tablet Ropinirole HCL 09/01/2020 12:00:00 AM EDT ORAL active [facility] ([facility]) atorvastatin 40 MG Oral Tablet [...] to lopez Policy Lopez Plan Information BS [place] Medig[place] Part B [id number] Family Dependent U [id number] BS [place] Medigap Part B [id number] Family Dependent U [id number] BS [place] Medigap Part B [id number] [id number] Family Dependent U [id number] BS [place] Medigap Part B [id number] [id number] Family Dependent U [id number] BS [place] Medigap Part B [id number] Family Dependent U [id number] BS [place] Medig[employer] Part B [id number] [id number] Family Dependent U [id number] BS [place] Medig[employer] Part B [id number] [id number] Family Dependent U [id number] BS [place] Medigap Part B [id number] Family Dependent U [id number] BS [place] Medigap Part B [id number] Family Dependent U [id number] MVP (pr) Commercial [id number] Self [id number] Stella (WC) Workers Compensation [id number] Self [id number] 900 [facility] [id number] SP [id number] [facility] [id number] SP [id number] [facility] Healthcare Commercial [id number] Self [facility] Commercial [id number] Self [id number] BS [place] [employer] Commercial [id number] [id number] Self [id number] BS [place] [employer] Commercial [id number] Self [employer] [id number] Deborah PYN [id number] [employer] [id number] [employer] B [id number] S PYN [id number] BS [place] Commercial [id number] Self P [id number] BS [place] Commercial [id number] Self P [id number] BS [place] Commercial [id number] Self P [id number] [employer] B [id number] S PYN [id number] [facility] O [id number] S 80 [id number] [place] PPO 302/307 [id number] SP [id number] [employer] Health Maintenance Organization (HMO) [id number] Self [id number] BC[employer] OF [place] 306/806 [id number] SP [id number] BS [place] Commercial [id number] Self P [id number] BCBS [place] PPO 302/307 [id number] SP [id number] [place] PPO 302/307 [id number] SP [id number] BC[employer] [place] 306/806 [id number] SP [id number] Problems, Conditions, and Diagnoses Code Display Name [...] disease without Diagnosis 12/21/2020 09:25:05 AM EDT [facility] F32.9 Major depressive disorder, single episod e, unspecified Major depressive disorder, single episod Diagnosis 12/21/2020 09:25:05 AM EDT [facility] F41.9 Anxiety disorder, unspecified Anxiety disorder, unspec ified Diagnosis 12/21/2020 09:25:05 AM EDT [facility] E78.5 Hyperlipidemia, unspecified Hyperlipidemia, unspecifie d Diagnosis 12/21/2020 09:25:05 AM EDT [facility] I48.0 Paroxysmal atrial fibrillation Paroxysmal atrial fibri llation Diagnosis 12/21/2020 09:25:05 AM EDT [facility] K74.60 Cirrhosis Cirrhosis [id number] 03/03/2021 12:00:00 AM ED T [facility] Surgeries/Procedures Procedure Description Date Indications Data Source(s) OFFICE OUTPATIENT VISIT 25 MINUTES 03/03/2021 12:00:00 AM EDT [facility] ([facility]) OFFICE OUTPATIENT VISIT 25 MINUTES 02/28/2021 12:00:00 AM EDT [facility] ([facility]) TROPONIN QUANTITATIVE <td>TROPONIN I</td><td>Routine</td><td>02/23/2021</td><td></td><td> </td> 02/23/2021 [...] DISTAL CLAVICULECTOMY 02/08/2021 12:00:00 AM EDT MEDG[facility] ([facility], ) SHOULDER SCOPE BONE SHAVING 02/08/2021 12:00:00 AM EDT [facility] ([facility] ) ARTHROSCOPY SHOULDER ROTATOR CUFF REPAIR 02/08/2021 12 :00:00 AM EDT [facility] ([facility], ) ECG ROUTINE ECG W/LEAST 12 LDS W/I&R 01/31/2021 12:00: 00 AM EDT [facility] ([facility]) OFFICE OUTPATIENT VISIT 25 MINUTES 01/31/2021 12:00:00 AM EDCleo MEDGIL ([facility]) OFFICE OUTPATIENT VISIT 25 MINUTES 01/17/2021 12:00:00 AM EDT [facility] ([facility]) OFFICE OUTPATIENT VISIT 15 MINUTES 12/20/2020 12:00:00 AM EDT [facility] ([facility]) OFFICE OUTPATIENT VISIT 25 MINUTES 12/20/2020 12:00:00 AM EDT [facility] ([facility]) Inject/Drain Arthrocentesis Major Joint/Bursa/Ganglion Cyst 12/15/2020 12:00:00 AM EDT [facility] ([facility]) OFFICE OUTPATIENT VISIT 25 MINUTES 12/15/2020 12:00:00 AM EDT MED[facility] ([facility]) OFFICE OUTPATIENT VISIT 25 MINUTES 11/10/2020 12:00:00 AM EDT MEDG[facility] ([facility]) Colonoscopy 11/09/2020 12:00:00 AM EDT DENISSE ([facility]) Colonoscopy Flexible Proximal To Splenic Flexure W/Biopsy Si ngle/ 11/09/2020 12:00:00 AM EDT [facility] ECG ROUTINE ECG W/LEAST 12 LDS W/I&R <td>POCT AMB EKG</td><td>Routine</td><td>10/28/2020</td><td> Paroxysmal atrial fibrillation Hypertension, unspecified type</td><td></td> 10/28/2020 12:00:00 AM EDT Hypertension, unspecified typeParoxysmal atrial fibrillation [facility] Hypertension, unspecified type Paroxysmal atrial fibrillation OFFICE OUTPATIENT VISIT 15 MINUTES 10/07/2020 12:00:00 AM EDT [facility] ([facility], ) OFFICE OUTPATIENT NEW 45 MINUTES 09/22/2020 12:00:00 A M EDT [facility] ([facility], ) Trans Care SRV W/I 14D Of DC, Comm W/I 2 Dys Med Rec 09/08/2020 12:00:00 AM EDT [facility] ([facility] ) Results ID Date Data Source [id number] 03/08/2021 11:38:00 AM EDT [facility] ([facility]) Name Value Range Interpretation Code Description Data Yuridia rce(s) Supporting Document(s) Magnesium 1.9 mg/dL 1.8-2.4 [facility]) ID Date Data Source [id number] 03/08/2021 11:38:00 AM EDT [facility] ([facility]) Name Value Range Interpretation Code Description Data Yuridia rce(s) Supporting Document(s) Glucose [Mass/volume] in Serum or Plasma 108 mg/dL 74-99 [facility] ([facility]) 100-125 mg/dL PRE-DIABETES/FASTING >126 mg/dL DIABETES/FASTING Creatinine 0.8 mg/dL 0.6-1.3 [facility] ([facility]) Urea nitrogen [Mass/volume] in Serum or Plasma 18 mg/dL 7-18 [facility] ([facility]) Sodium [Moles/volume] in Serum or Plasma 136 meq/L 136-145 [facility] ([facility]) Potassium [Moles/volume] in Serum or Plasma 4.3 meq/L 3.5-5.1 [facility] ([facility]) Calcium [Mass/volume] in Serum or Plasma 9.5 mg/dL 8.5-10.1 [facility] ([facility]) Carbon dioxide, total [Moles/volume] in Serum or Plasma 31 meq/L 21 -32 [facility] ([facility]) Chloride [Moles/volume] in Serum or Plasma 100 meq/L 98-107 [facility] Glomerular filtration rate/1.73 sq M pre dicted among non-blacks [Volume Rate/Area] in Serum or Plasma by Creatinine-based formula (MDRD) Laboratory test result [facility] Glomerular filtration rate/1.73 sq M pre dicted among blacks [Volume Rate/Area] in Serum or Plasma by Creatinine-based formula (MDRD) Laboratory test result [facility] ([facility]) <content>CHRONIC KIDNEY DISEASE STAGING PER NKF</content>
<content></content>
<content>STAGE I & II GFR >= 60 NORMAL TO MILDLY DECREASED</content>
<content>STAGE III GFR 30-59 MODERATELY DECREASED</content>
<content>STAGE IV GFR 15-29 SEVERELY DECREASED</content>
<content>STAGE V GFR <15 VERY LITTLE GFR LEFT</content>
<content>ESRD GFR <15 ON WRINGER AND SETTER</content>
<content></content> ID Date Data Source [id number] 03/03/2021 12:14:00 PM EDT [facility] ([facility] Name Value Range Interpretation Code Description Data Yuridia rce(s) Supporting Document(s) Glucose [Mass/volume] in Serum or Plasma 175 mg/dL 74-99 [facility] ([facility]) 100-125 mg/dL PRE-DIABETES/FASTING >126 mg/dL DIABETES/FASTING Urea nitrogen [Mass/volume] in Serum or Plasma 21 mg/dL 7-18 [facility] ([facility]) Potassium [Moles/volume] in Serum or Plasma 4.4 meq/L 3.5-5.1 [facility] Creatinine 0.7 mg/dL 0.6-1.3 [facility] Sodium [Moles/volume] in Serum or Plasma 140 meq/L 136-145 [facility] ([facility]) Calcium [Mass/volume] in Serum or Plasma 9.2 mg/dL 8.5-10.1 [facility] ([facility]) Chloride [Moles/volume] in Serum or Plasma 104 meq/L 98-107 [facility] Carbon dioxide, total [Moles/volume] in Serum or Plasma 31 meq/L 21 -32 [facility] Glomerular filtration rate/1.73 sq M pre dicted among non-blacks [Volume Rate/Area] in Serum or Plasma by Creatinine-based formula (MDRD) Laboratory test result [facility] ([facility] ) Glomerular filtration rate/1.73 sq M pre dicted among blacks [Volume Rate/Area] in Serum or Plasma by Creatinine-based formula (MDRD) Laboratory test result [facility] ([facility]) <content>CHRONIC KIDNEY DISEASE STAGING PER NKF</content>
<content></content>
<content>STAGE I & II GFR >= 60 NORMAL TO MILDLY DECREASED</content>
<content>STAGE III GFR 30-59 MODERATELY DECREASED</content>
<content>STAGE IV GFR 15-29 SEVERELY DECREASED</content>
<content>STAGE V GFR <15 VERY LITTLE GFR LEFT</content>
<content>ESRD GFR <15 ON WRINGER AND SETTER</content>
<content></content> ID Date Data Source [id number] 03/03/2021 12:14:00 PM EDT [facility] ([facility]) Name Value Range Interpretation Code Description Data Yuridia rce(s) Supporting Document(s) Magnesium 1.5 mg/dL 1.8-2.4 [facility] ([facility]) ID Date Data Source [id number] 02/28/2021 11:23:00 AM EDT [facility] ([facility]) Name Value Range Interpretation Code Description Data Yuridia rce(s) Supporting Document(s) Inr 1.18 [facility] ([facility]) THERAPUTIC HUMAN INR VALUES INDICATIONS NORMAL RANGES PROPHYLAXIS/TREATMENT OF: VENOUS THROMBOSIS 2.0-3.0 PULMONARY EMBOLISM 2.0-3.0 PREVENTION OF SYSTEMIC EMBOLISM FROM: TISSUE HEART VALVES 2.0-3.0 ACUTE MYOCARDIAL INFARCTION 2.0-3.0 VALVULAR HEART DISEASE 2.0-3.0 ATRIAL FIBRILLATION 2.0-3.0 MECHANICAL VALVES(HIGH RISK) 2.5-3.5 RECURRENT MYOCARDIAL INFARCTION 2.5-3.5 Prothrombin Time 15.4 s 12.7-14.5 [facility] ([facility]) ID Date Data Source [id number] 02/28/2021 11:23:00 AM EDT [facility] ([facility]) Name Value Range Interpretation Code Description Data Yuridia rce(s) Supporting Document(s) Ammonia [Mass/volume] in Blood 48 uMOL/L [facility] ([facility]) ID Date Data Source [id number] 02/28/2021 11:23:00 AM EDT [facility] ([facility]) Name Value Range Interpretation Code Description Data Yuridia rce(s) Supporting Document(s) Total Iron Binding Capacity 456 ug/dL 250-450 [facility] ([facility]) Iron (Fe) 52 ug/dL 65-175 [facility]) Percent Saturation 11.4 % 19.7-50.0 [facility] ([facility]) ID Date Data Source [id number] 02/28/2021 11:23:00 AM EDT [facility] ([facility]) Name Value Range Interpretation Code Description Data Yuridia rce(s) Supporting Document(s) Ferritin [Mass/volume] in Serum or Plasma 33 ng/mL 26-388 [facility] ([facility]) ID Date Data Source [id number] 02/28/2021 11:23:00 AM EDT [facility] ([facility]) Name Value Range Interpretation Code Description Data Yuridia rce(s) Supporting Document(s) Hepatitis C Virus Kelly Index 0.1 INDEX [facility] ([facility]) Negative Not infected with HCV, unless recent infection is suspected or other evidence exists to indicate HCV infection. Hepatitis B Core Antibody Igm Laboratory test result [facility] ([facility]) Hepatitis B Surface Antigen Laboratory test result [facility] ([facility]) Hepatitis A Antibody Igm Laboratory test result [facility] ([facility]) ID Date Data Source [id number] 02/28/2021 11:23:00 AM EDT [facility] ([facility]) Name Value Range Interpretation Code Description Data Yuridia rce(s) Supporting Document(s) Hepatitis B virus surface Ab [Presence] in Serum by Im munoassay Laboratory test result [facility] ([facility] ) ID Date Data Source [id number] 02/28/2021 11:21:00 AM EDT [facility] ([facility]) Name Value Range Interpretation Code Description Data Yuridia rce(s) Supporting Document(s) Hepatitis B virus surface Ab [Presence] in Serum by Im munoassay Laboratory test result [facility] ([facility] ) ID Date Data Source [id number] 02/28/2021 11:20:00 AM EDT [facility] ([facility]) Name Value Range Interpretation Code Description Data Yuridia rce(s) Supporting Document(s) Leukocytes [#/volume] in Blood by Automated count 9.2 x10*3/UL 4.1-10 .9 [facility] Erythrocytes [#/volume] in Blood by Automated count 4.40 x10*6/UL 4.2 0-6.30 [facility] ([facility]) Hemoglobin [Mass/volume] in Blood 12.8 g/dL 12.0-18.0 [facility] Hematocrit [Volume Fraction] of Blood by Automated count 38.8 % 3 7.0-51.0 [facility] ([facility]) MCH 29.1 pg 26.0-32.0 [facility] MCHC 33.0 g/dL 31.0-38.0 [facility] MCV 88.2 fL 80.0-97.0 [facility] ([facility]) Erythrocyte distribution width [Ratio] by Automated count 13.9 % 11.6-13.7 [facility] Platelets [#/volume] in Blood by Automated count 236 x10*3/UL 140-440 [facility] ([facility]) Mid % 5.1 % 1.7-9.3 [facility]) MPV 8.5 FL 7.8-11.0 [facility] Lymph % 20.5 % 10.0-58.5 [facility] Neut % 74.4 % 37.0-92.0 [facility] Mid # 0.4 x10*3/UL 0.1-0.6 [facility] ([facility]) Lymph # 1.9 x10*3/UL 0.6-4.1 [facility] ([facility]) Neut # 6.9 x10*3/UL 2.0-7.8 [facility] ([facility]) ID Date Data Source [id number] 02/28/2021 11:20:00 AM EDT [facility] ([facility]) Name Value Range Interpretation Code Description Data Yuridia rce(s) Supporting Document(s) Glucose [Mass/volume] in Serum or Plasma 111 mg/dL 74-99 [facility] ([facility]) 100-125 mg/dL PRE-DIABETES/FASTING >126 mg/dL DIABETES/FASTING Urea nitrogen [Mass/volume] in Serum or Plasma 18 mg/dL 7-18 [facility] ([facility]) Creatinine 0.7 mg/dL 0.6-1.3 [facility] ([facility]) Potassium [Moles/volume] in Serum or Plasma 4.0 meq/L 3.5-5.1 [facility] ([facility]) Sodium [Moles/volume] in Serum or Plasma 140 meq/L 136-145 [facility] ([facility]) Chloride [Moles/volume] in Serum or Plasma 103 meq/L 98-107 [facility] ([facility]) Carbon dioxide, total [Moles/volume] in Serum or Plasma 29 meq/L 21 -32 [facility] ([facility]) Calcium [Mass/volume] in Serum or Plasma 9.5 mg/dL 8.5-10.1 [facility] ([facility]) Alkaline phosphatase isoenzyme [Units/volume] in Serum or Pl asma 63 mg/dL 46-116 [facility] ([facility]) Total Bilirubin 0.7 mg/dL 0.2-1.0 [facility] ([facility]) Alanine aminotransferase [Enzymatic activity/volume] in Seru m or Plasma 30 U/L 12-78 [facility] ([facility]) Aspartate aminotransferase [Enzymatic activity/volume] in Serum or Plasma 27 U/L 15-37 [facility] ([facility] ) Albumin [Mass/volume] in Serum or Plasma 3.3 g/dL 3.4-5.0 [facility] ([facility]) Proteinase 3 Ab [Units/volume] in Serum 7.6 g/dL 6.4-8.2 [facility] ([facility]) A/G Ratio 0.77 CALC 1.00-1.90 [facility] ([facility]) Glomerular filtration rate/1.73 sq M pre dicted among non-blacks [Volume Rate/Area] in Serum or Plasma by Creatinine-based formula (MDRD) Laboratory test result [facility] Glomerular filtration rate/1.73 sq M pre dicted among blacks [Volume Rate/Area] in Serum or Plasma by Creatinine-based formula (MDRD) Laboratory test result [facility] ([facility]) <content>CHRONIC KIDNEY DISEASE STAGING PER NKF</content>
<content></content>
<content>STAGE I & II GFR >= 60 NORMAL TO MILDLY DECREASED</content>
<content>STAGE III GFR 30-59 MODERATELY DECREASED</content>
<content>STAGE IV GFR 15-29 SEVERELY DECREASED</content>
<content>STAGE V GFR <15 VERY LITTLE GFR LEFT</content>
<content>ESRD GFR <15 ON WRINGER AND SETTER</content>
<content></content> ID Date Data Source [id number] 02/28/2021 11:20:00 AM EDT [facility] ([facility]) Name Value Range Interpretation Code Description Data Yuridia rce(s) Supporting Document(s) Urine Color Laboratory test result [facility] ([facility]) Urine PH 6.0 units 5.0-9.0 [facility] ([facility]) Urine Appearance Laboratory test result [facility] ([facility]) Specific gravity of Urine 1.020 1.005-1.030 [facility] ([facility]) Urine Protein Laboratory test result 0-0 [facility] ([facility]) Urine Blood Laboratory test result [facility] ([facility]) Urine Leukocytes [facility] Glucose [Presence] in Urine Laboratory test [facility]) Urine Nitrite Laboratory test result [facility] ([facility]) Urine Ketone Laboratory test result [facility] ([facility]) Bilirubin.total [Mass/volume] in Serum or Plasma Laboratory test resu lt [facility] ([facility]) Urine Urobilinogen 0.2 mg/dL 0.2-1.0 [facility] ([facility] ID Date Data Source [id number] 02/23/2021 09:02:00 PM EDT [facility]) Name Value Range Interpretation Code Description Data Yuridia rce(s) Supporting Document(s) Laboratory test finding (navigational concept) 0.01 ng/mL 0.00-0.08 [facility] ([facility]) ID Date Data Source [id number] 02/23/2021 06:29:00 PM EDT [facility] Name Value Range Interpretation Code Description Data Yuridia rce(s) Supporting Document(s) Laboratory test finding (navigational concept) 0.00 ng/mL 0.00-0.08 [facility] ([facility]) ID Date Data Source [id number] 02/23/2021 04:20:00 PM EDT [facility] Name Value Range Interpretation Code Description Data Yuridia rce(s) Supporting Document(s) Influenza A Amplification Laboratory test result [facility] ([facility]) Negative results do not preclude influen za or RSV virus infection and should not be used as the sole basis for treatment or other patient management decisions. RSV Amplification Laboratory test result [facility] ([facility]) Negative results do not preclude influen za or RSV virus infection and should not be used as the sole basis for treatment or other patient management decisions. Influenza B Amplification Laboratory test result [facility] ([facility]) Negative results do not preclude influen za or RSV virus infection and should not be used as the sole basis for treatment or other patient management decisions. Laboratory test finding (navigational concept) Laboratory test result [facility] ([facility]) A false negative result [...] pathogens. DISCLAIMER: Testing was performed using the [facility] SARS-CoV-2 test. This test was developed and its performance characteristics determined by [facility]. This test has not been FDA cleared [...] or revoked sooner. ID Date Data Source [id number] 02/23/2021 04:20:00 PM EDT [facility] Name Value Range Interpretation Code Description Data Yuridia rce(s) Supporting Document(s) SARS coronavirus 2 RNA [Presence] in Res piratory specimen by KANA with probe detection [facility]GAT[facility] This lab was ordered by [facility] a nd reported by [facility]. ID Date Data Source [id number] 02/23/2021 04:12:00 PM EDT [facility] ([facility]) Name Value Range Interpretation Code Description Data Yuridia rce(s) Supporting Document(s) CK-MB Value Mass 3.3 ng/mL [facility] ([facility]) CPK Creatine Phosphokinase 102 U/L 39-308 [facility] ([facility]) MB/CK Relative Index 3.24 [facility] ([facility]) <content>DIAGNOSIS CRITERIA</content>
<content>MMB ng/ml Relative Index (RI)</content>
<content>NON-AMI < or = 5 N/A</content>
<content>ENRIQUEZ ZONE > 5 < or = 4</content>
<content>AMI > 5 > 4</content>
<content></content> Troponin I Laboratory test result [facility] ([facility]) <content>Troponin I Reference Interval f or Siemens [place] LOCI:</content>
<content></content>
<content>99th Percentile= 0.00-0.045 ng/ml</content>
<content></content>
<content>Risk Stratification:</content>
<content><= 0.10 ng/ml Decreased Risk for Adverse Clinical</content>
<content>Events.</content>
<content>0.10-1.50 ng/ml Increased Risk for Adverse Clinical</content>
<content>Events. Evaluation of additional</content>
<content>criterion and/or repeat testing in 2-6</content>
<content>hours is suggested to rule out myocardial</content>
<content>damage.</content>
<content>>= 1.50 ng/ml Indicative of Myocardial Injury.</content>
<content></content> ID Date Data Source [id number] 02/23/2021 04:12:00 PM EDT [facility] ([facility]) Name Value Range Interpretation Code Description Data Yuridia rce(s) Supporting Document(s) Ast/Sgot 24 U/L 7-37 [facility] Alt/SGPT 32 U/L 12-78 [facility]) Alkaline Phosphatase 67 U/L 45-117 [facility] ([facility]) Total Protein 7.2 GM/DL 6.4-8.2 [facility] ([facility]) Bilirubin,Total 0.9 mg/dL 0.2-1.0 [facility] ([facility]) Bilirubin,Direct 0.3 mg/dL 0.0-0.2 [facility] ([facility]) Albumin/Globulin Ratio 0.8 [facility] ([facility]) Albumin 3.1 GM/DL 3.2-5.2 [facility] ([facility]) ID Date Data Source [id number] 02/23/2021 04:12:00 PM EDT [facility] ([facility]) Name Value Range Interpretation Code Description Data Yuridia rce(s) Supporting Document(s) Lipoprotein lipase [Enzymatic activity/volume] in Serum or P lasma 249 U/L 73-393 [facility] ([facility]) Natriuretic peptide.B prohormone N-Terminal [Mass/volu me] in Serum or Plasma 303 pg/mL [facility] ([facility] ) Thyrotropin [Units/volume] in Serum or Plasma by Detec tion limit <= 0.05 mIU/L 1.080 uIU/ML 0.358-3.740 [facility] ([facility] ) Thyroxine (T4) free [Mass/volume] in Serum or Plasma 1.07 ng/dL 0.76- 1.46 [facility] ([facility]) ID Date Data Source [id number] 02/23/2021 04:12:00 PM EDT [facility] ([facility]) Name Value Range Interpretation Code Description Data Yuridia rce(s) Supporting Document(s) Hemoglobin 12.4 g/dL 13.5-17.5 [facility] White Blood Count 10.8 10 4.0-10.0 [facility] ([facility]) Red Blood Count 4.15 10 4.30-6.10 [facility] ([facility]) Mean Corpuscular Volume 92.5 fl 80.0-96.0 [facility] ([facility]) Hematocrit 38.4 % 42.0-52.0 [facility] Mean Corpuscular Hemoglobin 29.9 pg 27.0-33.0 [facility] ([facility]) Mean Corpuscular HGB Conc 32.3 g/dL 32.0-36.5 [facility] ([facility]) Platelet Count, Automated 211 10 150-450 [facility] ([facility]) Red Cell Distribution Width 13.8 % 11.5-14.5 [facility] ([facility]) [place] % 9.5 % 2.0-8.0 [facility]) Neutrophils % 66.8 % 36.0-66.0 [facility] ([facility]) Lymph % 19.9 % 24.0-44.0 [facility] Eos % 2.3 % 0.0-3.0 [facility] Baso % 1.1 % 0.0-1.0 [facility] Immature Granulocyte % 0.4 % 0-3.0 [facility] ([facility]) Nucleated Red Blood Cell % 0.0 % 0-0 [facility] ([facility]) Neutrophils # 7.2 10 1.5-8.5 [facility] ([facility]) Lymph # 2.1 10 1.5-5.0 [facility] Eos # 0.3 10 0.0-0.5 [facility] [place] # 1.0 10 0.0-0.8 [facility] Baso # 0.1 10 0.0-0.2 [facility] ID Date Data Source [id number] 02/23/2021 04:11:00 PM EDT [facility] ([facility]) Name Value Range Interpretation Code Description Data Yuridia rce(s) Supporting Document(s) Laboratory test finding (navigational concept) 0.00 ng/mL 0.00-0.08 [facility] ([facility]) ID Date Data Source [id number] 02/23/2021 04:10:00 PM EDT [facility] ([facility]) Name Value Range Interpretation Code Description Data Yuridia rce(s) Supporting Document(s) Laboratory test finding (navigational concept) 145 mg/dL 70-105 [facility] ([facility]) Laboratory test finding (navigational concept) 37.0 % 38.0-51.0 [facility] ([facility]) Laboratory test finding (navigational concept) 4.3 meq/L 3.5-5.1 [facility] ([facility]) Laboratory test finding (navigational concept) 138 meq/L 136-145 [facility] ([facility]) Laboratory test finding (navigational concept) 5.2 mg/dL 4.5-5.3 [facility] ([facility]) Laboratory test finding (navigational concept) 27.0 MM/L 23.0-27.0 [facility] ([facility]) Laboratory test finding (navigational concept) 100 meq/L 98-109 [facility] ([facility]) Laboratory test finding (navigational concept) 20 mg/dL 8-26 [facility] ([facility]) Laboratory test finding (navigational concept) 0.8 mg/dL 0.6-1.3 [facility] ([facility]) ID Date Data Source [id number] 01/31/2021 02:23:00 PM EDT [facility] ([facility]) Name Value Range Interpretation Code Description Data Yuridia rce(s) Supporting Document(s) Glucose [Mass/volume] in Serum or Plasma 75 mg/dL 74-99 [facility] ([facility]) 100-125 mg/dL PRE-DIABETES/FASTING >126 mg/dL DIABETES/FASTING Urea nitrogen [Mass/volume] in Serum or Plasma 14 mg/dL 7-18 [facility] ([facility]) Creatinine 0.7 mg/dL 0.6-1.3 [facility]) Sodium [Moles/volume] in Serum or Plasma 139 meq/L 136-145 [facility] ([facility]) Chloride [Moles/volume] in Serum or Plasma 103 meq/L 98-107 [facility] ([facility]) Potassium [Moles/volume] in Serum or Plasma 4.5 meq/L 3.5-5.1 [facility] ([facility]) Alkaline phosphatase isoenzyme [Units/volume] in Serum or Pl asma 63 mg/dL 46-116 [facility] ([facility]) Calcium [Mass/volume] in Serum or Plasma 9.5 mg/dL 8.5-10.1 [facility] ([facility]) Carbon dioxide, total [Moles/volume] in Serum or Plasma 30 meq/L 21 -32 [facility] ([facility]) Alanine aminotransferase [Enzymatic activity/volume] in Seru m or Plasma 35 U/L 12-78 [facility] ([facility]) Aspartate aminotransferase [Enzymatic activity/volume] in Serum or Plasma 27 U/L 15-37 [facility] ([facility] ) Total Bilirubin 0.8 mg/dL 0.2-1.0 [facility] ([facility]) Albumin [Mass/volume] in Serum or Plasma 3.4 g/dL 3.4-5.0 [facility] ([facility]) A/G Ratio 0.89 CALC 1.00-1.90 [facility]) Proteinase 3 Ab [Units/volume] in Serum 7.2 g/dL 6.4-8.2 [facility] ([facility]) Glomerular filtration rate/1.73 sq M pre dicted among non-blacks [Volume Rate/Area] in Serum or Plasma by Creatinine-based formula (MDRD) Laboratory test result [facility] ([facility] ) Glomerular filtration rate/1.73 sq M pre dicted among blacks [Volume Rate/Area] in Serum or Plasma by Creatinine-based formula (MDRD) Laboratory test result [facility] ([facility]) <content>CHRONIC KIDNEY DISEASE STAGING PER NKF</content>
<content></content>
<content>STAGE I & II GFR >= 60 NORMAL TO MILDLY DECREASED</content>
<content>STAGE III GFR 30-59 MODERATELY DECREASED</content>
<content>STAGE IV GFR 15-29 SEVERELY DECREASED</content>
<content>STAGE V GFR <15 VERY LITTLE GFR LEFT</content>
<content>ESRD GFR <15 ON WRINGER AND SETTER</content>
<content></content> ID Date Data Source [id number] 01/31/2021 02:23:00 PM EDT [facility] ([facility]) Name Value Range Interpretation Code Description Data Yuridia rce(s) Supporting Document(s) Magnesium 1.6 mg/dL 1.8-2.4 [facility]) ID Date Data Source [id number] 01/31/2021 02:23:00 PM EDT [facility] ([facility]) Name Value Range Interpretation Code Description Data Yuridia rce(s) Supporting Document(s) Hemoglobin A1c/Hemoglobin.total in Blood 6.9 % [facility] ([facility]) Lab Result Notes: Pre-Diabetes 5.7 - 6.4 % Diabetes = or > 6.5% Glucose mean value [Mass/volume] in Blood Estimated fr om glycated hemoglobin 151 mg/dL 60-110 [facility] ([facility] ) ID Date Data Source [id number] 01/31/2021 02:23:00 PM EDT [facility] ([facility]) Name Value Range Interpretation Code Description Data Yuridia rce(s) Supporting Document(s) Hemoglobin A1c/Hemoglobin.total in Blood Laboratory test result [facility] ([facility]) Magnesium, Serum Laboratory test result [facility] ([facility]) ID Date Data Source [id number] 11/10/2020 12:58:00 PM EDT [facility] ([facility]) Name Value Range Interpretation Code Description Data Yuridia rce(s) Supporting Document(s) Hemoglobin A1c/Hemoglobin.total in Blood 6.7 % [facility] ([facility]) Lab Result Notes: Pre-Diabetes 5.7 - 6.4 % Diabetes = or > 6.5% Glucose mean value [Mass/volume] in Blood Estimated fr om glycated hemoglobin 146 mg/dL 60-110 [facility] ([facility] ) ID Date Data Source [id number] 11/10/2020 12:58:00 PM EDT [facility] ([facility]) Name Value Range Interpretation Code Description Data Yuridia rce(s) Supporting Document(s) Hemoglobin [Mass/volume] in Blood 14.4 g/dL 12.0-18.0 [facility] ([facility]) Leukocytes [#/volume] in Blood by Automated count 9.0 x10*3/UL 4.1-10 .9 [facility] ([facility]) Erythrocytes [#/volume] in Blood by Automated count 4.70 x10*6/UL 4.2 0-6.30 [facility] ([facility]) MCH 30.7 pg 26.0-32.0 [facility] Hematocrit [Volume Fraction] of Blood by Automated count 43.1 % 3 7.0-51.0 [facility] ([facility]) MCV 91.7 fL 80.0-97.0 [facility]) MCHC 33.5 g/dL 31.0-38.0 [facility] ([facility]) Erythrocyte distribution width [Ratio] by Automated count 12.9 % 11.6-13.7 [facility] ([facility]) MPV 8.2 FL 7.8-11.0 [facility] ([facility]) Platelets [#/volume] in Blood by Automated count 237 x10*3/UL 140-440 [facility] ([facility]) Lymph % 20.4 % 10.0-58.5 [facility]) Mid % 5.7 % 1.7-9.3 [facility] ([facility]) Lymph # 1.8 x10*3/UL 0.6-4.1 [facility] ([facility]) Neut % 73.9 % 37.0-92.0 [facility] Neut # 6.6 x10*3/UL 2.0-7.8 [facility] ([facility]) Mid # 0.6 x10*3/UL 0.1-0.6 [facility] ([facility]) ID Date Data Source [id number] 11/10/2020 12:58:00 PM EDT [facility] ([facility]) Name Value Range Interpretation Code Description Data Yuridia rce(s) Supporting Document(s) Glucose [Mass/volume] in Serum or Plasma 104 mg/dL 74-99 [facility] ([facility]) 100-125 mg/dL PRE-DIABETES/FASTING >126 mg/dL DIABETES/FASTING Sodium [Moles/volume] in Serum or Plasma 137 meq/L 136-145 [facility] ([facility]) Creatinine 0.7 mg/dL 0.6-1.3 [facility] ([facility]) Urea nitrogen [Mass/volume] in Serum or Plasma 14 mg/dL 7-18 [facility] ([facility]) Potassium [Moles/volume] in Serum or Plasma 4.5 meq/L 3.5-5.1 [facility] ([facility]) Carbon dioxide, total [Moles/volume] in Serum or Plasma 28 meq/L 21 -32 [facility] ([facility]) Chloride [Moles/volume] in Serum or Plasma 103 meq/L 98-107 [facility] ([facility]) Total Bilirubin 0.9 mg/dL 0.2-1.0 [facility] ([facility]) Alkaline phosphatase isoenzyme [Units/volume] in Serum or Pl asma 67 mg/dL 46-116 [facility] ([facility]) Calcium [Mass/volume] in Serum or Plasma 9.8 mg/dL 8.5-10.1 [facility] ([facility]) Aspartate aminotransferase [Enzymatic activity/volume] in Serum or Plasma 24 U/L 15-37 [facility] ([facility] ) Alanine aminotransferase [Enzymatic activity/volume] in Seru m or Plasma 27 U/L 12-78 [facility] ([facility] Albumin [Mass/volume] in Serum or Plasma 3.4 g/dL 3.4-5.0 [facility] ([facility]) A/G Ratio 0.85 CALC 1.00-1.90 [facility] ([facility]) Glomerular filtration rate/1.73 sq M pre dicted among non-blacks [Volume Rate/Area] in Serum or Plasma by Creatinine-based formula (MDRD) Laboratory test result [facility] ([facility] Proteinase 3 Ab [Units/volume] in Serum 7.4 g/dL 6.4-8.2 [facility] ([facility]) Glomerular filtration rate/1.73 sq M pre dicted among blacks [Volume Rate/Area] in Serum or Plasma by Creatinine-based formula (MDRD) Laboratory test result [facility] ([facility]) <content>CHRONIC KIDNEY DISEASE STAGING PER NKF</content>
<content></content>
<content>STAGE I & II GFR >= 60 NORMAL TO MILDLY DECREASED</content>
<content>STAGE III GFR 30-59 MODERATELY DECREASED</content>
<content>STAGE IV GFR 15-29 SEVERELY DECREASED</content>
<content>STAGE V GFR <15 VERY LITTLE GFR LEFT</content>
<content>ESRD GFR <15 ON WRINGER AND SETTER</content>
<content></content> ID Date Data Source [id number] 11/10/2020 12:58:00 PM EDT [facility] ([facility]) Name Value Range Interpretation Code Description Data Yuridia rce(s) Supporting Document(s) Hemoglobin A1c/Hemoglobin.total in Blood Laboratory test result [facility] ([facility]) ID Date Data Source [id number] 11/09/2020 09:09:00 AM EDT [facility] ([facility] ) Name Value Range Interpretation Code Description Data Yuridia rce(s) Supporting Document(s) Surgical pathology study Laboratory test result [facility] ([facility], ) FINAL DIAGNOSIS Descending and rectum polyps, polypectomy: Hyperplastic poly, fragments. 11/10/2020 - 1000 CLINICAL DIAGNOSIS History colon cancer 11/09/2020 - 1450 GROSS DIAGNOSIS Received in formalin labeled "biopsy descending colon/polyps rectum" and consists of fragments of tissue, 0.2 x 0.1 x 0.1 cm. All in one. -OA 11/09/2020 - 1450 Signed MEGHAN HOLT MD 11/10/2020 1001 ID Date Data Source [id number] 11/04/2020 09:55:00 AM EDT [facility] Name Value Range Interpretation Code Description Data Yuridia rce(s) Supporting Document(s) SARS-CoV-2 (COVID-19) RNA [Presence] in Respiratory specimen by KANA with probe detection Not Detected [facility] This lab was ordered by [facility] and reported by [facility]. ID Date Data Source [id number] 09/08/2020 11:14:00 AM EDT [facility] ([facility]) Name Value Range Interpretation Code Description Data Yuridia rce(s) Supporting Document(s) Glucose [Mass/volume] in Serum or Plasma 113 mg/dL 74-99 [facility] ([facility]) 100-125 mg/dL PRE-DIABETES/FASTING >126 mg/dL DIABETES/FASTING Urea nitrogen [Mass/volume] in Serum or Plasma 14 mg/dL 7-18 [facility] ([facility]) Creatinine 0.8 mg/dL 0.6-1.3 [facility] ([facility]) Sodium [Moles/volume] in Serum or Plasma 135 meq/L 136-145 [facility] ([facility]) Potassium [Moles/volume] in Serum or Plasma 3.9 meq/L 3.5-5.1 [facility] ([facility]) Carbon dioxide, total [Moles/volume] in Serum or Plasma 30 meq/L 21 -32 [facility] ([facility]) Chloride [Moles/volume] in Serum or Plasma 99 meq/L 98-107 [facility] ([facility]) Calcium [Mass/volume] in Serum or Plasma 9.7 mg/dL 8.5-10.1 [facility] ([facility]) Total Bilirubin 1.1 mg/dL 0.2-1.0 [facility] ([facility]) Aspartate aminotransferase [Enzymatic activity/volume] in Serum or Plasma 42 U/L 15-37 [facility] ([facility] ) Alkaline phosphatase isoenzyme [Units/volume] in Serum or Pl asma 76 mg/dL 46-116 [facility] ([facility]) Albumin [Mass/volume] in Serum or Plasma 3.3 g/dL 3.4-5.0 [facility] ([facility]) Alanine aminotransferase [Enzymatic activity/volume] in Seru m or Plasma 59 U/L 12-78 [facility] ([facility]) Proteinase 3 Ab [Units/volume] in Serum 7.7 g/dL 6.4-8.2 [facility] ([facility]) A/G Ratio 0.75 CALC 1.00-1.90 [facility] ([facility]) Glomerular filtration rate/1.73 sq M pre dicted among non-blacks [Volume Rate/Area] in Serum or Plasma by Creatinine-based formula (MDRD) Laboratory test result [facility] ([facility] Glomerular filtration rate/1.73 sq M pre dicted among blacks [Volume Rate/Area] in Serum or Plasma by Creatinine-based formula (MDRD) Laboratory test result [facility] ([facility]) <content>CHRONIC KIDNEY DISEASE STAGING PER NKF</content>
<content></content>
<content>STAGE I & II GFR >= 60 NORMAL TO MILDLY DECREASED</content>
<content>STAGE III GFR 30-59 MODERATELY DECREASED</content>
<content>STAGE IV GFR 15-29 SEVERELY DECREASED</content>
<content>STAGE V GFR <15 VERY LITTLE GFR LEFT</content>
<content>ESRD GFR <15 ON WRINGER AND SETTER</content>
<content></content> ID Date Data Source [id number] 09/08/2020 11:14:00 AM EDT [facility]) Name Value Range Interpretation Code Description Data Yuridia rce(s) Supporting Document(s) Hemoglobin A1c/Hemoglobin.total in Blood 6.7 % [facility] ([facility]) Lab Result Notes: Pre-Diabetes 5.7 - 6.4 % Diabetes = or > 6.5% Glucose mean value [Mass/volume] in Blood Estimated fr om glycated hemoglobin 146 mg/dL 60-110 [facility] ([facility] ID Date Data Source [id number] 09/08/2020 11:14:00 AM EDT [facility]) Name Value Range Interpretation Code Description Data Yuridia rce(s) Supporting Document(s) Erythrocytes [#/volume] in Blood by Automated count 4.88 x10*6/UL 4.2 0-6.30 [facility] ([facility]) Leukocytes [#/volume] in Blood by Automated count 10.3 x10*3/UL 4.1-1 0.9 [facility] ([facility]) MCV 94.7 fL 80.0-97.0 [facility]) Hemoglobin [Mass/volume] in Blood 15.9 g/dL 12.0-18.0 [facility] [facility] Hematocrit [Volume Fraction] of Blood by Automated count 46.2 % 3 7.0-51.0 [facility] ([facility]) MCHC 34.4 g/dL 31.0-38.0 [facility] ([facility]) MCH 32.6 pg 26.0-32.0 [facility] ([facility]) Platelets [#/volume] in Blood by Automated count 269 x10*3/UL 140-440 [facility] ([facility]) Erythrocyte distribution width [Ratio] by Automated count 12.2 % 11.6-13.7 [facility] ([facility]) MPV 8.5 FL 7.8-11.0 [facility] ([facility]) Lymph % 22.1 % 10.0-58.5 [facility] ([facility]) Mid % 5.8 % 1.7-9.3 [facility] ([facility]) Neut % 72.1 % 37.0-92.0 [facility] ([facility]) Mid # 0.7 x10*3/UL 0.1-0.6 [facility] ([facility]) Lymph # 2.2 x10*3/UL 0.6-4.1 [facility] ([facility]) Neut # 7.4 x10*3/UL 2.0-7.8 [facility] ([facility]) ID Date Data Source [id number] 08/23/2020 10:19:00 AM EDT [facility] ([facility]) Name Value Range Interpretation Code Description Data Yuridia rce(s) Supporting Document(s) Influenza A Amplification Laboratory test result [facility] ([facility]) Negative results do not preclude influen za or RSV virus infection and should not be used as the sole basis for treatment or other patient management decisions. Influenza B Amplification Laboratory test result [facility] ([facility]) Negative results do not preclude influen za or RSV virus infection and should not be used as the sole basis for treatment or other patient management decisions. RSV Amplification Laboratory test result [facility] ([facility]) Negative results do not preclude influen za or RSV virus infection and should not be used as the sole basis for treatment or other patient management decisions. Laboratory test finding (navigational concept) Laboratory test result [facility] ([facility]) A false negative result may occur [...] pathogens. DISCLAIMER: Testing was performed using the [facility] SARS-CoV-2 test. This test was developed and its performance characteristics determined by [facility]. This test has not been FDA cleared [...] or revoked sooner. ID Date Data Source [id number] 08/23/2020 10:19:00 AM EDT [facility] Name Value Range Interpretation Code Description Data Yuridia rce(s) Supporting Document(s) SARS coronavirus 2 RNA [Presence] in Res piratory specimen by KANA with probe detection NEGATIVE [facility] This lab was ordered by [facility] a nd reported by [facility]. ID Date Data Source [id number] 08/23/2020 08:27:00 AM EDT [facility] ([facility]) Name Value Range Interpretation Code Description Data Yuridia rce(s) Supporting Document(s) Laboratory test finding (navigational concept) 0.01 ng/mL 0.00-0.08 [facility] ([facility]) ID Date Data Source [id number] 08/23/2020 08:25:00 AM EDT [facility] ([facility]) Name Value Range Interpretation Code Description Data Yuridia rce(s) Supporting Document(s) Laboratory test finding (navigational concept) 45.0 % 38.0-51.0 [facility] ([facility]) Laboratory test finding (navigational concept) 139 meq/L 136-145 [facility] ([facility]) Laboratory test finding (navigational concept) 158 mg/dL 70-105 [facility] ([facility]) Laboratory test finding (navigational concept) 4.4 meq/L 3.5-5.1 [facility] ([facility]) Laboratory test finding (navigational concept) 4.6 mg/dL 4.5-5.3 [facility] ([facility]) Laboratory test finding (navigational concept) 101 meq/L 98-109 [facility] ([facility]) Laboratory test finding (navigational concept) 31.0 MM/L 23.0-27.0 [facility] ([facility]) Laboratory test finding (navigational concept) 10 mg/dL 8-26 [facility] ([facility]) Laboratory test finding (navigational concept) 0.6 mg/dL 0.6-1.3 [facility] ([facility]) ID Date Data Source [id number] 08/23/2020 08:20:00 AM EDT [facility] ([facility]) Name Value Range Interpretation Code Description Data Yuridia rce(s) Supporting Document(s) Magnesium [Moles/volume] in Serum or Plasma 1.6 mg/dL 1.8-2.4 [facility] ([facility]) Natriuretic peptide.B prohormone N-Terminal [Mass/volu me] in Serum or Plasma 285 pg/mL [facility] ([facility] ) Thyrotropin [Units/volume] in Serum or Plasma by Detec tion limit <= 0.05 mIU/L 0.774 uIU/ML 0.358-3.740 [facility] ([facility] ) ID Date Data Source [id number] 08/23/2020 08:20:00 AM EDT [facility] ([facility] Name Value Range Interpretation Code Description Data Yuridia rce(s) Supporting Document(s) Ast/Sgot 42 U/L 7-37 [facility] ([facility]) Alt/SGPT 33 U/L 12-78 [facility] ([facility]) Alkaline Phosphatase 90 U/L 45-117 [facility] ([facility]) Bilirubin,Total 1.3 mg/dL 0.2-1.0 [facility] ([facility]) Bilirubin,Direct 0.6 mg/dL 0.0-0.2 [facility] ([facility]) Total Protein 7.7 GM/DL 6.4-8.2 [facility] ([facility]) Albumin 3.1 GM/DL 3.2-5.2 [facility] ([facility]) Albumin/Globulin Ratio 0.7 [facility] ([facility]) ID Date Data Source [id number] 08/23/2020 08:20:00 AM EDT [facility] ([facility]) Name Value Range Interpretation Code Description Data Yuridia rce(s) Supporting Document(s) Prothrombin Time 16.2 s 12.5-14.3 [facility] ([facility]) Inr 1.27 [facility] ([facility]) THERAPUTIC HUMAN INR VALUES INDICATIONS NORMAL RANGES PROPHYLAXIS/TREATMENT OF: VENOUS THROMBOSIS 2.0-3.0 PULMONARY EMBOLISM 2.0-3.0 PREVENTION OF SYSTEMIC EMBOLISM FROM: TISSUE HEART VALVES 2.0-3.0 ACUTE MYOCARDIAL INFARCTION 2.0-3.0 VALVULAR HEART DISEASE 2.0-3.0 ATRIAL FIBRILLATION 2.0-3.0 MECHANICAL VALVES(HIGH RISK) 2.5-3.5 RECURRENT MYOCARDIAL INFARCTION 2.5-3.5 ID Date Data Source [id number] 08/23/2020 08:20:00 AM EDT [facility] ([facility]) Name Value Range Interpretation Code Description Data Yuridia rce(s) Supporting Document(s) White Blood Count 7.8 10 4.0-10.0 [facility] ([facility]) Hematocrit 42.5 % 42.0-52.0 [facility] ([facility]) Hemoglobin 14.3 g/dL 13.5-17.5 [facility] ([facility]) Red Blood Count 4.28 10 4.30-6.10 [facility] ([facility]) Mean Corpuscular Volume 99.3 fl 80.0-96.0 [facility] ([facility]) Mean Corpuscular Hemoglobin 33.4 pg 27.0-33.0 ME DENT ([facility]) Red Cell Distribution Width 12.3 % 11.5-14.5 [facility] ([facility]) Mean Corpuscular HGB Conc 33.6 g/dL 32.0-36.5 MEDE NT ([facility]) Platelet Count, Automated 164 10 150-450 [facility] NT ([facility]) Lymph % 23.1 % 24.0-44.0 [facility]) Neutrophils % 62.1 % 36.0-66.0 [facility] ([facility]) [place] % 10.3 % 2.0-8.0 [facility]) Baso % 1.4 % 0.0-1.0 [facility]) Eos % 2.6 % 0.0-3.0 [facility]) Immature Granulocyte % 0.5 % 0-3.0 [facility] ([facility]) Neutrophils # 4.9 10 1.5-8.5 [facility] ([facility]) Nucleated Red Blood Cell % 0.0 % 0-0 MED ENT ([facility]) Lymph # 1.8 10 1.5-5.0 [facility]) Eos # 0.2 10 0.0-0.5 [facility]) Baso # 0.1 10 0.0-0.2 [facility]) [place] # 0.8 10 0.0-0.8 [facility]) ID Date Data Source [id number] 07/04/2020 12:00:00 AM EST [facility] Name Value Range Interpretation Code Description Data Yuridia rce(s) Supporting Document(s) SARS-CoV2 Rapid Antigen Negative [facility] This lab was ordered by [facility] and reported by [facility] Procedure Social History Code [...] (finding) completed Current drinker of alcohol (finding) [facility] Vital Signs ID Date Data Source [id number] Name Value Range Interpretation Code Description Data Source(s) Systolic blood pressure 100 mm[Hg] 100 mm[Hg] DENISSE ([facility]) Body weight 266.00 [lb_av] 266.00 [lb_av] SARKIS Gallo ([facility]) Body mass index (BMI) [Ratio] 38.2 kg/m2 38.2 k g/m2 FREDA ([facility]) Diastolic blood pressure 72 mm[Hg] 72 mm[Hg] FREDA ([facility]) Heart rate 82 /min 82 /min [facility]) Body height 70 [in_i] 70 [in_i] [facility]) 5'10" Body mass index (BMI) [Ratio] 39.68 kg/m2 39.68 kg/m2 [facility] Systolic blood pressure 110 mm[Hg] 110 mm[Hg] [facility] Diastolic blood pressure 68 mm[Hg] 68 mm[Hg] [facility] Heart rate 71 /min 71 /min [facility] Body height 172.7 cm 172.7 cm [facility] Body weight 118.389 kg 118.389 kg [facility] Oxygen saturation in Arterial blood by Pulse oximetry 95 % 95 % [facility] Systolic blood pressure 102 mm[Hg] 102 mm[Hg] DENISSE ([facility]) Diastolic blood pressure 82 mm[Hg] 82 mm[Hg] FREDA ([facility]) Heart rate 58 /min 58 /min [facility] ([facility]) Body height 70 [in_i] 70 [in_i] [facility] ([facility]) 5'10" Body weight 262.00 [lb_av] 262.00 [lb_av] MEDEN T ([facility]) Oxygen saturation in Arterial blood by Pulse oximetry 99 % 99 % [facility] ([facility]) RM Air Body mass index (BMI) [Ratio] 37.6 kg/m2 37.6 k g/m2 [facility] ([facility]) Body weight 266.00 [lb_av] 266.00 [lb_av] MEDEN T ([facility]) Body height 70 [in_i] 70 [in_i] [facility] ([facility]) 5'10" Oxygen saturation in Arterial blood by Pulse oximetry 99 % 99 % [facility] ([facility]) RM Air Body mass index (BMI) [Ratio] 38.2 kg/m2 38.2 k g/m2 [facility] ([facility]) Systolic blood pressure 102 mm[Hg] 102 mm[Hg] [facility]) Diastolic blood pressure 80 mm[Hg] 80 mm[Hg] [facility] ([facility]) Heart rate 81 /min 81 /min [facility] ([facility]) Body mass index (BMI) [Ratio] 35.7 kg/m2 35.7 k g/m2 [facility] ([facility]) Diastolic blood pressure 94 mm[Hg] 94 mm[Hg] [facility] ([facility]) Systolic blood pressure 118 mm[Hg] 118 mm[Hg] M EDENT ([facility]) Heart rate 73 /min 73 /min [facility] ([facility]) Body height 70 [in_i] 70 [in_i] [facility] ([facility]) 5'10" Body weight 249.00 [lb_av] 249.00 [lb_av] MEDEN T ([facility]) Oxygen saturation in Arterial blood by Pulse oximetry 98 % 98 % [facility] ([facility]) Body temperature 97.9 [degF] 97.9 [degF] [facility] ([facility], ) Systolic blood pressure 100 mm[Hg] 100 mm[Hg] [facility] Diastolic blood pressure 70 mm[Hg] 70 mm[Hg] [facility] Heart rate 76 /min 76 /min [facility] Body height 172.7 cm 172.7 cm [facility] Body weight 109.861 kg 109.861 kg [facility] Body mass index (BMI) [Ratio] 36.83 kg/m2 36.83 kg/m2 [facility] Oxygen saturation in Arterial blood by Pulse oximetry 96 % 96 % [facility] Body temperature 98.7 [degF] 98.7 [degF] FREDA ([facility], ) Systolic blood pressure 118 mm[Hg] 118 mm[Hg] Lanny SALCEDO ([facility]) Diastolic blood pressure 62 mm[Hg] 62 mm[Hg] FREDA ([facility]) Heart rate 70 /min 70 /min FREDA ([facility]) Body height 70 [in_i] 70 [in_i] [facility] ([facility]) 5'10" Body weight 240.00 [lb_av] 240.00 [lb_av] MEDEN T ([facility]) Body mass index (BMI) [Ratio] 34.4 kg/m2 34.4 k g/m2 [facility] ([facility]) Systolic blood pressure 110 mm[Hg] 110 mm[Hg] [facility] Diastolic blood pressure 80 mm[Hg] 80 mm[Hg] [facility] Heart rate 101 /min 101 /min [facility] Respiratory rate 18 /min 18 /min [facility] Body weight 111.585 kg 111.585 kg [facility] Body mass index (BMI) [Ratio] 37.40 kg/m2 37.40 kg/m2 [facility] Oxygen saturation in Arterial blood by Pulse oximetry 97 % 97 % [facility] Systolic blood pressure 135 mm[Hg] 135 mm[Hg] Lanny SALCEDO ([facility]) Diastolic blood pressure 93 mm[Hg] 93 mm[Hg] [facility] ([facility]) Oxygen saturation in Arterial blood by Pulse oximetry 97 % 97 % [facility] ([facility]) Respiratory rate 18 /min 18 /min [facility] ( [facility]) Heart rate 91 /min 91 /min [facility] ([facility]) Body weight 113.400 kg 113.400 kg [facility] ([facility]) Lucas body weight 166 [lb_av] 166 [lb_av] MEDEN T ([facility]) Oxygen saturation in Arterial blood by Pulse oximetry 97 % 97 % [facility] ([facility]) Body temperature 97.2 [degF] 97.2 [degF] [facility] ([facility]) Body height 70 [in_i] 70 [in_i] [facility] ([facility]) 5'10" Body weight 250.00 [lb_av] 250.00 [lb_av] MEDEN T ([facility]) Body mass index (BMI) [Ratio] 35.9 kg/m2 35.9 k g/m2 [facility] ([facility]) Lucas body weight 166 [lb_av] 166 [lb_av] MEDEN T ([facility]) Body weight 113.400 kg 113.400 kg [facility] ([facility]) Body surface area Derived from formula 2.29 m2 2.29 m2 [facility] ([facility]) Respiratory rate 18 /min 18 /min [facility] ( [facility]) Body temperature 97.2 [degF] 97.2 [degF] [facility] ([facility]) Body height 70 [in_i] 70 [in_i] [facility] ([facility]) 5'10" Body weight 250.00 [lb_av] 250.00 [lb_av] MEDEN T ([facility]) Body mass index (BMI) [Ratio] 35.9 kg/m2 35.9 k g/m2 [facility] ([facility]) Body surface area Derived from formula 2.29 m2 2.29 m2 [facility] ([facility]) Systolic blood pressure 113 mm[Hg] 113 mm[Hg] [facility] ([facility]) Body height 70 [in_i] 70 [in_i] [facility] ([facility]) 5'10" Respiratory rate 17 /min 17 /min [facility] ( [facility]) Body weight 250.75 [lb_av] 250.75 [lb_av] MEDEN T ([facility]) Body mass index (BMI) [Ratio] 36.0 kg/m2 36.0 k g/m2 [facility] ([facility]) Diastolic blood pressure 73 mm[Hg] 73 mm[Hg] [facility] ([facility]) Heart rate 84 /min 84 /min [facility] ([facility]) Oxygen saturation in Arterial blood by Pulse oximetry 100 % 100 % [facility] ([facility]) Body temperature 95.4 [degF] 95.4 [degF] [facility] ([facility]) Lucas body weight 166 [lb_av] 166 [lb_av] MEDEN T ([facility]) Body weight 113.740 kg 113.740 kg [facility] ([facility]) Body surface area Derived from formula 2.30 m2 2.30 m2 [facility] ([facility]) Body mass index (BMI) [Ratio] 35.7 kg/m2 35.7 k g/m2 [facility] ([facility]) Systolic blood pressure 122 mm[Hg] 122 mm[Hg] [facility] ([facility]) Diastolic blood pressure 86 mm[Hg] 86 mm[Hg] [facility] ([facility]) Body height 70 [in_i] 70 [in_i] [facility] ([facility]) 5'10" Body weight 248.50 [lb_av] 248.50 [lb_av] MEDEN T ([facility]) Body surface area Derived from formula 2.29 m2 2.29 m2 [facility] ([facility]) Lucas body weight 166 [lb_av] 166 [lb_av] SARKIS T ([facility], ) Body weight 112.720 kg 112.720 kg [facility] Systolic blood pressure 118 mm[Hg] 118 mm[Hg] M EDENT ([facility]) Diastolic blood pressure 62 mm[Hg] 62 mm[Hg] MEDGIL ([facility]) Body weight 250.00 [lb_av] 250.00 [lb_av] JOSEMANUELEN T ([facility]) Body mass index (BMI) [Ratio] 35.9 kg/m2 35.9 k g/m2 [facility] ([facility]) Heart rate 68 /min 68 /min [facility] ([facility]) Body height 70 [in_i] 70 [in_i] [facility] ([facility]) 5'10" Patient Treatment Plan [...]
[2021-03-15 03:37] LABS: CHOLESTEROL LEVEL 135 MG/DL (<200); CHOLESTEROL RISK RATIO 2.547 (<5); HDL CHOLESTEROL 53 MG/DL (>40); LDL CHOLESTEROL 70 MG/DL (<100); MAGNESIUM LEVEL 1.6 MG/DL (1.8-2.4); NON-HDL-C 82 MG/DL; TRIGLYCERIDES LEVEL 61 MG/DL (<150)
[2021-03-15 03:49] LABS: HEMOGLOBIN A1c 6.8 %
[2021-03-15] MEDS: ACETAMINOPHEN TAB 650MG DOSE (2X325MG) PO PRN (04:40)
[2021-03-15] MEDS: LACTULOSE 20 GM/30 ML SYRUP UD PO SCH ×3 (05:52→21:59)
[2021-03-15] MEDS ORDERED: HEPARIN SOD (PORCINE) 5000UNITS/ML 1ML VIAL/SYRINGE SC SCH ×2 (06:00→21:00)
[2021-03-15 06:59] LABS: HEMATOCRIT 38.9 % (42.0-52.0); HEMOGLOBIN 12.5 g/dl (13.5-17.5); MEAN CORPUSCULAR HEMOGLOBIN 29.7 pg (27.0-33.0); MEAN CORPUSCULAR HGB CONC 32.1 g/dl (32.0-36.5); MEAN CORPUSCULAR VOLUME 92.4 fl (80.0-96.0); PLATELET COUNT, AUTOMATED 173 10^3/uL (150-450); RED BLOOD COUNT 4.21 10^6/uL (4.30-6.10); WHITE BLOOD COUNT 9.7 10^3/uL (4.0-10.0)
[2021-03-15 07:30] LABS: ALBUMIN 3.3 GM/DL (3.2-5.2); ALT/SGPT 29 U/L (12-78); BILIRUBIN,TOTAL 1.5 MG/DL (0.2-1.0); BLOOD UREA NITROGEN 15 MG/DL (7-18); CALCIUM LEVEL 9.4 MG/DL (8.5-10.1); CARBON DIOXIDE LEVEL 28 MEQ/L (21-32); CHLORIDE LEVEL 105 MEQ/L (98-107); CREATININE FOR GFR 0.72 MG/DL (0.70-1.30); GLOMERULAR FILTRATION RATE > 60.0 (>56); GLUCOSE, FASTING 114 MG/DL (70-100); POTASSIUM SERUM 3.8 MEQ/L (3.5-5.1); SODIUM LEVEL 139 MEQ/L (136-145); TOTAL PROTEIN 7.4 GM/DL (6.4-8.2)
[2021-03-15] MEDS: HumaLOG INSULIN (NovoLOG) PER UNIT SC SCH ×4 (08:33→21:27)
[2021-03-15] MEDS: DOCUSATE SODIUM 100MG CAPSULE PO SCH ×2 (08:36→21:59)
[2021-03-15] MEDS: SPIRONOLACTONE 12.5MG PER 1/2 TABLET PO SCH (08:37)
[2021-03-15] MEDS: OMEPRAZOLE 20 MG CAP PO SCH (08:37)
[2021-03-15] MEDS: ATORVASTATIN 20 MG TAB PO SCH (08:37)
[2021-03-15] MEDS: FERROUS SULFATE 325MG TAB PO SCH (08:37)
[2021-03-15] MEDS ORDERED: KETOROLAC 30 MG/ML 1ML VIAL IV ONE (09:00)
[2021-03-15] MEDS ORDERED: MAGNESIUM OXIDE 400MG TAB (MAG-OX) PO SCH (09:00)
--- NOTE | 2021-03-15 11:15 | IPNPDOC ---
Subjective Date Seen The patient was seen on 03/15/21. Subjective Chief Complaint/HPI Patient complains of feeling very sleepy. He reports that at home also he falls asleep whenever he sits down. Then he would wake up choking and feeling like he is having a panic attack. This is what happened last evening and also 3 times during the day which prompted him to come to the ED. Objective Physical Examination General Exam: Positive: Alert, Cooperative, No Acute Distress, Other (Falling asleep during the interview) Eye Exam: Positive: PERRLA, Conjunctiva & lids normal, EOMI; Negative: Sclera icteric Neck Exam: Positive: Supple; Negative: JVD, thyromegaly Chest Exam: Positive: Diminished, Other (Bibasilar crackles); Negative: Rales, Rhonchi, Wheezing Heart Exam: Positive: Tachycardic, Irregular Rhythm, Normal S1, Normal S2, Other (Long pauses mostly when he is falling asleep 6 seconds or more); Negative: Murmurs, Rubs Telemetry: Positive: Atrial fibrillation, Pause Abdomen Exam: Positive: Normal bowel sounds, Soft, Other (Very obese); Negative: Tenderness Extremity Exam: Positive: Edema; Negative: Clubbing, Cyanosis Psych Exam: Positive: Memory Intact, Oriented x 3 Assessment /Plan Assessment 60-year-old male history of NICHOLE untreated ( does not use CPAP), Alcoholic Cirrhosis of liver, atrial fibrillation, type 2 diabetes, obesity, GERD, sigmoid cancer s/p resection presented to the emergency department because he has been waking up over the past several weeks gasping for air several times over the course of the night associated with anxiety and panic. He feels like he cannot breathe when he is sleeping which wakes him up. This episode happened 3 times last evening that prompted him to come to the emergency room. In the emergency department patient had a 20 sec asystole on monitor which corrected on its own. Sometimes his heart rate would drop down to 40s and he would have long pauses in the telemetry. He also had multiple pauses 5 to 6 seconds especially when he is falling asleep. He was placed on pacer pads which shocked him multiple times overnight. When he is awake he is in A. fib with a heart rate of 90s to 120s. He was admitted to ICU for tachybradycardia syndrome with long pauses. A. fib with tachybradycardia syndrome Metoprolol and Eliquis has been held Patient will need pacemaker Dr. Mcarthur has discussed this with Dr. Dallas and plan is for or on 03/16/2021 NICHOLE untreated This could be contributing to his long pauses We will place the patient on CPAP at 12 cm Hold all sedating medicine Alcoholic cirrhosis of liver Continue on Lasix spironolactone and lactulose Diabetes A1c 6.4. Will hold Metformin in hospital lispro as per sliding scale GERD Continue PPI Hyperlipidemia Continue statin Restless leg Will hold ropirinole Plan/VTE VTE Prophylaxis Ordered?: Yes VS, I&O, 24H, Fishbone Vital Signs/I&O Vital Signs Date Time Temp Pulse Resp B/P (MAP) Pulse Ox O2 Delivery O2 Flow Rate FiO2 03/15/21 10:45 86 18 141/74 (96) 90 NIPPV (BIPAP/CPAP) 03/15/21 07:30 98.6 Laboratory Data 24H LABS Laboratory Tests 2 03/14/21 21:10: Immature Granulocyte % (Auto) 0.4, Neutrophils (%) (Auto) 62.5, Lymphocytes (%) (Auto) 22.6L, Monocytes (%) (Auto) 11.4H, Eosinophils (%) (Auto) 2.1, Basophils (%) (Auto) 1.0, Neutrophils # (Auto) 6.6, Lymphocytes # (Auto) 2.4, Monocytes # (Auto) 1.2H, Eosinophils # (Auto) 0.2, Basophils # (Auto) 0.1, Nucleated Red Blood Cells % (auto) 0.0, Prothrombin Time 14.5H, Prothromb Time International Ratio 1.09, Activated Partial Thromboplast Time 37.8, Urine Color FLORENTINO, Urine Appearance CLEAR, Urine pH 5.0, Urine Specific Mobile 1.029, Urine Protein 1+H, Urine Glucose (UA) NEGATIVE, Urine Ketones TRACEH, Urine Blood NEGATIVE, Urine Nitrite NEGATIVE, Urine Bilirubin NEGATIVE, Urine Urobilinogen 4.0H, Urine L eukocyte Esterase NEGATIVE, Urine WBC (Auto) 5H, Urine RBC (Auto) 0, Urine Hyaline Casts (Auto) 0, Urine Bacteria (Auto) NEGATIVE, Urine Squamous Epithelial Cells 0, Urine Mucus (Auto) SMALL, Urine Sperm (Auto) , Anion Gap 6L, Glomerular Filtration Rate > 60.0, Estimated Mean Plasma Glucose 148H, He moglobin A1c 6.8, Lactic Acid Level 0.9, Calcium Level 9.3, Magnesium Level 1.6L, Total Bilirubin 1.0, Direct Bilirubin 0.4H, Aspartate Amino Transf (AST/SGOT) 21, Alanine Aminotransferase (ALT/SGPT) 30, Alkaline Phosphatase 70, Ammonia 40H, Total Creatine Kinase 128, Creatine Kinase MB 2.8, Creatine Kinase MB Relative Index 2.19, Troponin I < 0.02, Total Protein 7.4, Albumin 3.3, Albumin/Globulin Ratio 0.8, Triglycerides Level 61, Total Cholesterol 135, LDL Cholesterol 70, Non-HDL Cholesterol (LDL + VLDL) 82, Total HDL Cholesterol 53, Cholesterol/HDL Ratio 2.547, Lipase 411H 03/14/21 23:36: Coronavirus (COVID-19)(PCR) NEGATIVE, Influenza Type A (RT-PCR) NEGATIVE, Influ porifrio Type B (RT-PCR) NEGATIVE, Respiratory Syncytial Virus (PCR) NEGATIVE 03/14/21 23:38: Blood Gas Bicarbonate Standard 25.9, Arterial Blood pH 7.449, Arterial Blood Partial Pressure CO2 37.6, Arterial Blood Partial Pressure O2 78.1, Arterial Blood Total CO2 26.6, Arterial Blood HCO3 25.5, Arterial Blood Base Excess 1.6, Arterial Blood Oxygen Saturation 95.4 03/15/21 06:44: Nucleated Red Blood Cells % (auto) 0.0, Anion Gap 6L, Glomerular Filtration Rate > 60.0, Calcium Level 9.4, Total Bilirubin 1.5H, Aspartate Amino Transf (AST/SGOT) 23, Alanine Aminotransferase (ALT/SGPT) 29, Alkaline Phosphatase 69, Ammonia 32, Total Protein 7.4, Albumin 3.3, Albumin/Globulin Ratio 0.8 CBC/BMP Laboratory Tests 03/14/21 21:10 03/15/21 06:44 Phyllis King MD Mar 15, 2021 11:15
--- NOTE | 2021-03-15 13:32 | ECGEPIP ---
[facility] - ED Test Date: 2021-03-14 Pat Name: GONZALEZ MAYEN Department: Room: - Gender: Male [employer]: [id number] : [id number] Requested By: Yvonne Espinal Order Number: [id number] Reading MD: Yvonne Espinal Measurements Intervals [place] Rate: 85 P: AL: QRS: 22 QRSD: 84 T: 25 QT: 384 QTc: 456 Interpretive Statements Atrial fibrillation Inferior infarct , age undetermined delayed r progression NSTTW abnormalities decreased rate 02/23/21 Electronically Signed on 03-15-2021 13:32:28 EDT by Yvonne Espinal
--- NOTE | 2021-03-15 13:39 | ECGEPIP ---
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
--- NOTE | 2021-03-15 13:41 | ECGEPIP ---
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
[2021-03-15] MEDS ORDERED: FUROSEMIDE 40MG/4ML VIAL (J1940) IV SCH (19:20)
[2021-03-15] MEDS: MAGNESIUM OXIDE 400MG TAB (MAG-OX) PO SCH (21:59)
[2021-03-16] VITALS (11 sets, daily range): BP systolic 114–129; BP diastolic 66–78; O2SAT 92–97
[2021-03-16] MEDS: LACTULOSE 20 GM/30 ML SYRUP UD PO SCH ×3 (05:46→23:06)
[2021-03-16] MEDS ORDERED: AMIODARONE HCL 150 MG/100 ML PREMIXED BAG (NEXTERONE) (J0282 PER 30MG) As Ordered ONE (07:10)
[2021-03-16] MEDS ORDERED: ISOVUE-300 61% 50ML VIAL As Ordered ONE (07:10)
[2021-03-16] MEDS ORDERED: LIDOCAINE 1% SDV 30ML VIAL As Ordered ONE (07:10)
[2021-03-16] MEDS: HumaLOG INSULIN (NovoLOG) PER UNIT SC SCH ×4 (07:30→20:48)
[2021-03-16] MEDS ORDERED: fentaNYL 100 MCG/2 ML INJECTION (J3010) As Ordered ONE (07:48)
[2021-03-16] MEDS ORDERED: propofoL 200 MG/20 ML VIAL As Ordered ONE (07:48)
[2021-03-16] MEDS ORDERED: LIDOCAINE 2% 100MG/5ML SDV (FOR ANES.) As Ordered ONE (07:48)
[2021-03-16] MEDS ORDERED: MIDAZOLAM INJ 2MG/2ML VIAL (J2250 PER 1MG) As Ordered ONE (07:48)
[2021-03-16] MEDS ORDERED: METOPROLOL 5 MG/5 ML VIAL As Ordered ONE ×4 (07:49→08:25)
[2021-03-16] MEDS ORDERED: ceFAZolin 2 GM/D5W 50 ML IV BAG (J0690 PER 500MG) As Ordered ONE (07:56)
[2021-03-16] MEDS ORDERED: LR 1,000 ML IV SCH (09:05)
[2021-03-16] MEDS ORDERED: oxyCODONE 5MG TAB PO PRN (09:05)
[2021-03-16] MEDS ORDERED: ONDANSETRON 4MG/2ML VIAL IV PRN (09:05)
[2021-03-16] MEDS ORDERED: IBUPROFEN 400MG TAB PO PRN (09:30)
[2021-03-16] MEDS: METOPROLOL TART 25 MG TABLET PO SCH ×2 (09:38→20:42)
--- NOTE | 2021-03-16 10:53 | RO ---
OPERATIVE NOTE DATE OF OPERATION: 03/16/2021 PREOPERATIVE DIAGNOSIS: 1. Intermittent high-grade AV block ventricular asystole. 2. Permanent atrial fibrillation. POSTOPERATIVE DIAGNOSIS: 1. Intermittent high-grade AV block ventricular asystole. 2. Permanent atrial fibrillation. PROCEDURE: Implantation of single-chamber permanent pacemaker. IMPLANTING AGRICULTURAL EQUIPMENT DESIGN ENGINEER: Alvaro Dallas M.D. ANESTHESIOLOGIST: Dr. Alonso ANESTHESIA: Monitored local anesthesia. CLINICAL SUMMARY: This 60-year-old male with a weight problem, obstructive sleep apnea, chronic hypertension, hypertensive heart disease, abnormal EKG and permanent atrial fibrillation, presented to the emergency room with history of several days of paroxysmal shortness of breath/gasping and altered mental status. In the emergency room, clinical trial assistant documented a recurrent episode associated with ventricular asystole of 20 seconds. Transcutaneous noninvasive pacer patches were applied and Dr. Mcarthur, his customary photography sales associate, requested a cardiology pacemaker service consultation. As he was on Eliquis oral anticoagulant therapy, he remained on a monitor with his pacer patches and his Eliquis was discontinued along with his metoprolol. His average ventricular response increased from the 70s to this morning 150 BPM. There is no question that in order to safely receive his metoprolol beta oskar therapy to control his ventricular response, he will need a backup permanent pacemaker. The indication, procedure and potential risks were discussed with the patient who appeared to understand and agree. An informed consent was signed. DESCRIPTION OF PROCEDURE: With the patient in the fasting state, having received Ancef 2 gm IV premedication, he was taken to the operating theater. Numerous skin electrodes were applied to facilitate continuous electrocardiographic monitoring. The left subclavian region was prepped and draped in the usual fashion and the skin was infiltrated with 1% Xylocaine. The left axillary vein was catheterized using a micropuncture technique. A 5 cm linear incision was made several cm below and parallel to the left clavicle. A dissection was carried down to the level of the pectoralis fascia and the pocket was fashioned below the level of the incision line. A single bipolar screw-in active fixation, steroid-eluting pacing lead was then positioned to the right ventricular apex under fluoroscopic electrocardiographic control. The right ventricular lead ([employer], model number [id number], serial number [id number]) measurements were focal and stimulation thresholds 0.75 V/0.4 ms/impedance 560 ohms. The R wave amplitude measured 12 mV. This lead was secured in position with a sleeve suture at its insertion site. It was then connected to a single-chamber pulse generator ([employer] MRI compatible, model number [id number], serial number [id number]) and appropriate VVI pacing was documented. The generator was placed in the pocket and secured in position with a suture through the upper right hand corner of the Epoxy header. The subcutaneous tissues were approximated using a running Chromic suture. The skin was closed using yaniv. A dry dressing was applied and the patient was returned to the recovery room in good condition. Portable upright and chest x-ray postoperatively showed good pacing lead position with no pneumothorax. His postoperative EKG showed underlying atrial fibrillation with somewhat rapid ventricular response of 111 BPM. At this point, it is safe for us to resume his chronic oral beta oskar therapy (in order to test his pacemaker intraoperatively, the patient was given metoprolol 5 mg IV q.5 minutes for a total of 5 doses). His oral anticoagulant, Eliquis will be resumed tomorrow evening. He will be monitored on a telemetry floor for at least the next 24 hours. COMPLICATIONS: No apparent complications. ESTIMATED BLOOD LOSS: 5 ml MTDD
[2021-03-16] MEDS: SERTRALINE HCL 50 MG TAB PO SCH (11:57)
[2021-03-16] MEDS: FERROUS SULFATE 325MG TAB PO SCH (11:58)
[2021-03-16] MEDS: ATORVASTATIN 20 MG TAB PO SCH (11:58)
[2021-03-16] MEDS: OMEPRAZOLE 20 MG CAP PO SCH (11:58)
[2021-03-16] MEDS: MAGNESIUM OXIDE 400MG TAB (MAG-OX) PO SCH ×2 (11:58→20:41)
[2021-03-16] MEDS: SPIRONOLACTONE 12.5MG PER 1/2 TABLET PO SCH (11:58)
[2021-03-16] MEDS: DOCUSATE SODIUM 100MG CAPSULE PO SCH ×2 (11:58→20:41)
--- NOTE | 2021-03-16 13:09 | IPNPDOC ---
Subjective Date Seen The patient was seen on 03/16/21. Subjective Chief Complaint/HPI Patient had pacemaker placement this a.m. Doing well after that. Patient did have good response to IV Lasix yesterday. Though still continues to have significant amount of edema. [facility] Objective Physical Examination General Exam: Positive: Alert, Cooperative, No Acute Distress, Other (Falling asleep during the interview) Eye Exam: Positive: PERRLA, Conjunctiva & lids normal, EOMI; Negative: Sclera icteric Neck Exam: Positive: Supple; Negative: JVD, thyromegaly Chest Exam: Positive: Diminished, Other (Bibasilar crackles); Negative: Rales, Rhonchi, Wheezing Heart Exam: Positive: Tachycardic, Irregular Rhythm, Normal S1, Normal S2, Other (Long pauses mostly when he is falling asleep 6 seconds or more); Negative: Murmurs, Rubs Telemetry: Positive: Atrial fibrillation, Pause Abdomen Exam: Positive: Normal bowel sounds, Soft, Other (Very obese); Negative: Tenderness Extremity Exam: Positive: Edema; Negative: Clubbing, Cyanosis Psych Exam: Positive: Memory Intact, Oriented x 3 Assessment /Plan Assessment 60-year-old male history of NICHOLE untreated ( does not use CPAP), Alcoholic Cirrhosis of liver, atrial fibrillation, type 2 diabetes, obesity, GERD, sigmoid cancer s/p resection presented to the emergency department because he has been waking up over the past several weeks gasping for air several times over the course of the night associated with anxiety and panic. He feels like he cannot breathe when he is sleeping which wakes him up. This episode happened 3 times last evening that prompted him to come to the emergency room. In the emergency department patient had a 20 sec asystole on monitor which corrected on its own. Sometimes his heart rate would drop down to 40s and he would have long pauses in the telemetry. He also had multiple pauses 5 to 6 seconds especially when he is falling asleep. He was placed on pacer pads which shocked him multiple times overnight. He was admitted for A fib with intermittent high grade A-V blocks with 1 episode of asystole lasting 20 secs. Chronic A. fib with intermittent high grade A-V block and asystole. s/p pacemaker on 03/16/2021 restarted on metoprolol, restart eliquis on 03/17/21 night Congestive heart failure Unspecified at this time Likely has severe pulmonary hypertension and cor pulmonale With clinical fluid overload Echo has been done read is pending. NICHOLE untreated Possibly with severe pulmonary hypertension continue on CPAP at 12 cm Hold all sedating medicines No recent sleep study and he lost his CPAP machine as he was not using it. Will need new sleep study before he can get another machine Alcoholic cirrhosis of liver Continue on Lasix, spironolactone and lactulose CT abdomen pelvis only minimal ascites not enough to tap Diabetes A1c 6.4. Will hold Metformin in hospital lispro as per sliding scale GERD Continue PPI Hyperlipidemia Continue statin Restless leg resume ropinirole Class III obesity BMI of 38.5 Complicating care Plan/VTE VTE Prophylaxis Ordered?: Yes VS, I&O, 24H, Fishbone Vital Signs/I&O Vital Signs Date Time Temp Pulse Resp B/P (MAP) Pulse Ox O2 Delivery O2 Flow Rate FiO2 03/16/21 12:00 97.9 98 18 129/78 (95) 97 Nasal Cannula 3.0 I&O- Last 24 Hours up to 6 AM 03/16/21 05:59 Output Total 2050 ml Balance -2050 ml Laboratory Data 24H LABS Laboratory Tests 2 03/15/21 13:44: Bedside Glucose (Misc Panel) 162H 03/15/21 18:21: Bedside Glucose (Misc Panel) 143H 03/15/21 21:15: Bedside Glucose (Misc Panel) 226H 03/16/21 08:52: Bedside Glucose (Misc Panel) 146H 03/16/21 11:27: Bedside Glucose (Misc Panel) 136H Phyllis King MD Mar 16, 2021 13:06
[2021-03-16 13:51] LABS: BLOOD UREA NITROGEN 16 MG/DL (7-18); CALCIUM LEVEL 8.8 MG/DL (8.5-10.1); CARBON DIOXIDE LEVEL 27 MEQ/L (21-32); CHLORIDE LEVEL 106 MEQ/L (98-107); CREATININE FOR GFR 0.91 MG/DL (0.70-1.30); GLOMERULAR FILTRATION RATE > 60.0 (>56); GLUCOSE, FASTING 203 MG/DL (70-100); POTASSIUM SERUM 3.9 MEQ/L (3.5-5.1); SODIUM LEVEL 138 MEQ/L (136-145)
[2021-03-16] MEDS: ceFAZolin SOD 1 GM in D5W MINI-BAG PLUS 50 ML IV SCH ×2 (15:04→23:06)
[2021-03-16] MEDS ORDERED: metFORMIN (GLUCOPHAGE) 1000 MG TABLET PO SCH (18:00)
[2021-03-16] MEDS ORDERED: APIXABAN 5 MG TAB (ELIQUIS) PO SCH (21:00)
[2021-03-16] MEDS ORDERED: rOPINIRole 2MG TAB PO SCH (21:00)
[2021-03-17] VITALS (10 sets, daily range): BP systolic 119–146; BP diastolic 70–88; O2SAT 94–98
[2021-03-17] MEDS: ACETAMINOPHEN TAB 650MG DOSE (2X325MG) PO PRN ×2 (04:58→16:47)
[2021-03-17 06:06] LABS: BASO # 0.1 10^3/uL (0.0-0.2); BASO % 0.7 % (0.0-1.0); EOS # 0.2 10^3/uL (0.0-0.5); EOS % 1.7 % (0.0-3.0); HEMATOCRIT 40.1 % (42.0-52.0); HEMOGLOBIN 12.7 g/dl (13.5-17.5); LYMPH # 2.2 10^3/uL (1.5-5.0); MEAN CORPUSCULAR HEMOGLOBIN 29.8 pg (27.0-33.0); MEAN CORPUSCULAR HGB CONC 31.7 g/dl (32.0-36.5); MEAN CORPUSCULAR VOLUME 94.1 fl (80.0-96.0); MONO # 1.2 10^3/uL (0.0-0.8); NEUTROPHILS % 62.2 % (36.0-66.0); PLATELET COUNT, AUTOMATED 163 10^3/uL (150-450); RED BLOOD COUNT 4.26 10^6/uL (4.30-6.10); WHITE BLOOD COUNT 9.7 10^3/uL (4.0-10.0)
[2021-03-17] MEDS: LACTULOSE 20 GM/30 ML SYRUP UD PO SCH ×2 (06:33→12:43)
[2021-03-17 06:35] LABS: BLOOD UREA NITROGEN 17 MG/DL (7-18); CALCIUM LEVEL 8.7 MG/DL (8.5-10.1); CARBON DIOXIDE LEVEL 29 MEQ/L (21-32); CHLORIDE LEVEL 104 MEQ/L (98-107); CREATININE FOR GFR 0.75 MG/DL (0.70-1.30); GLOMERULAR FILTRATION RATE > 60.0 (>56); GLUCOSE, FASTING 105 MG/DL (70-100); POTASSIUM SERUM 4.5 MEQ/L (3.5-5.1); SODIUM LEVEL 138 MEQ/L (136-145)
[2021-03-17] MEDS: HumaLOG INSULIN (NovoLOG) PER UNIT SC SCH ×3 (07:30→17:30)
--- NOTE | 2021-03-17 08:43 | REP ---
INDICATION: Post pacemaker implant COMPARISON: 03/16/2021 TECHNIQUE: PA and lateral. FINDINGS: Pacemaker in stable position. Stable cardiomegaly. Increased pulmonary markings with cephalization suggests element of pulmonary vascular congestion. No focal consolidation or effusion. No pneumothorax. Skeletal structures intact. IMPRESSION: 1. Pacemaker in satisfactory position without evidence for pneumothorax. 2. Cardiomegaly and mild pulmonary vascular congestion cannot be excluded. <Electronically signed by Deangelo Powers > 03/17/21 [id number]
[2021-03-17] MEDS: DOCUSATE SODIUM 100MG CAPSULE PO SCH (09:00)
[2021-03-17] MEDS ORDERED: FUROSEMIDE 40 MG TAB PO SCH (09:00)
[2021-03-17] MEDS: SPIRONOLACTONE 12.5MG PER 1/2 TABLET PO SCH (09:53)
[2021-03-17] MEDS: ceFAZolin SOD 1 GM in D5W MINI-BAG PLUS 50 ML IV SCH (09:53)
--- NOTE | 2021-03-17 09:53 | ECGEPIP ---
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
[2021-03-17] MEDS: MAGNESIUM OXIDE 400MG TAB (MAG-OX) PO SCH (09:54)
[2021-03-17] MEDS: FERROUS SULFATE 325MG TAB PO SCH (09:54)
[2021-03-17] MEDS: METOPROLOL TART 25 MG TABLET PO SCH (09:54)
[2021-03-17] MEDS: ATORVASTATIN 20 MG TAB PO SCH (09:54)
[2021-03-17] MEDS: OMEPRAZOLE 20 MG CAP PO SCH (09:54)
[2021-03-17] MEDS: SERTRALINE HCL 50 MG TAB PO SCH (09:55)
--- NOTE | 2021-03-17 10:14 | ECHO ---
ECHOCARDIOGRAM DATE OF PROCEDURE: 03/15/2021 Age: 70 Gender: Height: 175 cm Weight: 118 kg Patient location: Emergency department (ED), room C1 REFERRING PHYSICIAN: Dr. Aleksey Raines INDICATION: Heart failure, unspecified, sick sinus syndrome. 2D MEASUREMENTS: IVS 1.1 cm LVWP 1.1 cm LV 5.7 cm Aortic root 3.7 cm LA 4.1 cm DOPPLER MEASUREMENTS: Peak velocity across the aortic valve 1.59 m/s Maximum tricuspid valve velocity 2.3 m/s 2D COMMENTS: 1. Normal left ventricular wall thickness and systolic function. The estimated left ventricular systolic ejection fraction is 55%-60%. Subjectively, the left ventricle appeared to be normal in size. 2. Mildly dilated left atrium. Normal right atrium and left ventricle noted. Normal right atrium and left ventricle noted in limited viewed. 3. The atrial septum appeared to be normal without evidence of defect or shunt. 4. Borderline enlarged aortic root at 3.7 cm. 5. No pericardial effusion seen in limited views. 6. Mildly calcified aortic valve. Leaflet excursion appeared to be normal. Mildly calcified mitral annulus with normal-appearing mitral valve leaflet motion. Normal tricuspid valve. The pulmonic valve and proximal pulmonary artery branches appeared to be normal in limited views. 7. The inferior vena cava was not well visualized. DOPPLER: It detects trace aortic regurgitation, trace tricuspid regurgitation, and mild mitral regurgitation. The calculated pulmonary artery systolic pressure is about normal. Assessment of the left ventricular diastolic dysfunction was limited in view of the underlying arrhythmias. IMPRESSION: 1. Low normal global left ventricular systolic function. Assessment of the left ventricular diastolic function was limited in view of the underlying arrhythmias. 2. Aortic valve sclerosis with trace aortic regurgitation. No aortic stenosis. 3. Mitral annulus calcification with mild mitral regurgitation and a mildly enlarged left atrium. 4. Trace tricuspid regurgitation. Pulmonary artery systolic pressure appeared to be normal. 5. Borderline enlarged aortic root at 3.7 cm.
[2021-03-17] MEDS ORDERED: ASCO500T PO (15:36)
[2021-03-17] MEDS ORDERED: IBUP-1114 PO (15:36)
[2021-03-17] MEDS ORDERED: NEOSPORIN TOP OINT 15GM TOP ONE (18:00)
--- NOTE | 2021-03-17 19:52 | DS.PDOC ---
Discharge Summary General Date of Admission Mar 15, 2021 at 02:45 Date of Discharge 03/17/2021 Discharge Summary PROCEDURES PERFORMED DURING STAY: Permanent pacemaker placement on 03/16/2021 DISCHARGE DIAGNOSES: Asystole Intermittent high degree AV block Chronic A. fib Congestive heart failure NICHOLE untreated noncompliant with CPAP Alcoholic cirrhosis of liver Morbid obesity Hyperlipidemia GERD Restless leg syndrome Alcohol use disorder COMPLICATIONS/CHIEF COMPLAINT: Asystole, Atrial Fibrillation, Sensation Of Chest.. HOSPITAL COURSE: 60-year-old alcoholic male with past medical history of NICHOLE un treated ( does not use CPAP), Alcoholic Cirrhosis of liver, atrial fibrillation, type 2 diabetes, obesity, GERD, sigmoid cancer s/p resection presented to the emergency department because he has been waking up over the past several weeks gasping for air several times over the course of the night associated with anxiety and panic. He feels like he cannot breathe when he is sleeping which wakes him up. This episode happened 3 times last evening that prompted him to come to the emergency room. In the emergency department patient had a 20 sec asystole on monitor which corrected on its own. Sometimes his heart rate would drop down to 40s and he would have long pauses in the telemetry. He also had multiple pauses 5 to 6 seconds especially when he is falling asleep. He was placed on pacer pads which shocked him multiple times overnight. He was admitted for A fib with intermittent high grade A-V blocks with 1 episode of asystole lasting 20 secs. He was also noted to be desaturating severely during sleep with oxygen saturation down to 70s so he was placed on CPAP with 12 cm of water support with seem to take care of his hypoxia. Chronic A. fib with intermittent high grade A-V block and asystole. s/p pacemaker on 03/16/2021 restarted on metoprolol, restart eliquis on 03/17/21 night Congestive heart failure Unspecified at this time Likely has severe pulmonary hypertension and cor pulmonale With clinical fluid overload Echo has been done read is pending. NICHOLE untreated Possibly with severe pulmonary hypertension He was put on CPAP in the hospital at 12 cm with seem to be taking care of his hypoxia He has a CPAP machine however has not used for over 10 years and says it is not working properly No recent sleep study Will need new sleep study before he can get another machine Alcoholic cirrhosis of liver Continue on Lasix, spironolactone and lactulose CT abdomen pelvis only minimal ascites not enough to tap Diabetes A1c 6.4. Will hold Metformin in hospital lispro as per sliding scale GERD Continue PPI Hyperlipidemia Continue statin Restless leg resume ropinirole Class III obesity BMI of 38.5 Complicating care DISCHARGE MEDICATIONS: Please see below. ALLERGIES: Please see below. PHYSICAL EXAMINATION ON DISCHARGE: VITAL SIGNS: Please see below. General Exam: Positive: Alert, Cooperative, No Acute Distress, Other (Falling asleep during the interview) Eye Exam: Positive: PERRLA, Conjunctiva & lids normal, EOMI; Negative: Sclera icteric Neck Exam: Positive: Supple; Negative: JVD, thyromegaly Chest Exam: Positive: Diminished, Other (Bibasilar crackles); Negative: Rales, Rhonchi, Wheezing Heart Exam: Positive: Tachycardic, Irregular Rhythm, Normal S1, Normal S2, Other (Long pauses mostly when he is falling asleep 6 seconds or more); Negative: Murmurs, Rubs Telemetry: Positive: Atrial fibrillation, Pause Abdomen Exam: Positive: Normal bowel sounds, Soft, Other (Very obese); Negative: Tenderness Extremity Exam: Positive: Edema; Negative: Clubbing, Cyanosis Psych Exam: Positive: Memory Intact, Oriented x 3 LABORATORY DATA: Please see below. Echo: 2D MEASUREMENTS: IVS 1.1 cm LVWP 1.1 cm LV 5.7 cm Aortic root 3.7 cm LA 4.1 cm DOPPLER MEASUREMENTS: Peak velocity across the aortic valve 1.59 m/s Maximum tricuspid valve velocity 2.3 m/s 2D COMMENTS: 1. Normal left ventricular wall thickness and systolic function. The estimated left ventricular systolic ejection fraction is 55%-60%. Subjectively, the left ventricle appeared to be normal in size. 2. Mildly dilated left atrium. Normal right atrium and left ventricle noted. Normal right atrium and left ventricle noted in limited viewed. 3. The atrial septum appeared to be normal without evidence of defect or shunt. 4. Borderline enlarged aortic root at 3.7 cm. 5. No pericardial effusion seen in limited views. 6. Mildly calcified aortic valve. Leaflet excursion appeared to be normal. Mildly calcified mitral annulus with normal-appearing mitral valve leaflet motion. Normal tricuspid valve. The pulmonic valve and proximal pulmonary artery branches appeared to be normal in limited views. 7. The inferior vena cava was not well visualized. DOPPLER: It detects trace aortic regurgitation, trace tricuspid regurgitation, and mild mitral regurgitation. The calculated pulmonary artery systolic pressure is about normal. Assessment of the left ventricular diastolic dysfunction was limited in view of the underlying arrhythmias. IMPRESSION: 1. Low normal global left ventricular systolic function. Assessment of the left ventricular diastolic function was limited in view of the underlying arrhythmias. 2. Aortic valve sclerosis with trace aortic regurgitation. No aortic stenosis. 3. Mitral annulus calcification with mild mitral regurgitation and a mildly enlarged left atrium. 4. Trace tricuspid regurgitation. Pulmonary artery systolic pressure appeared to be normal. ACTIVITY: [As tolerated]. DIET: 2 g sodium diet, full 1800 cc fluid restriction DISCHARGE PLAN: Home DISPOSITION: Home, Self-Care. DISCHARGE INSTRUCTIONS: Follow-up with Dr. Dallas's office in 7 days for staple removal and wound check Follow-up with Dr. Up in 1 month for pacemaker check PMD in [address] Dallas's discharge instructions regarding wound care and mobility of the arm on the side of the placement DISCHARGE CONDITION: [Stable]. TIME SPENT ON DISCHARGE: 35 minutes. Vital Signs/I&Os Vital Signs Date Time Temp Pulse Resp B/P (MAP) Pulse Ox O2 Delivery O2 Flow Rate FiO2 03/17/21 16:00 97.9 95 18 135/86 (102) 97 Room Air 03/16/21 13:00 I&O- Last 24 Hours up to 6 AM 03/17/21 06:00 Intake Total 650 ml Output Total 0 ml Balance 650 ml Laboratory Data Labs 24H Laboratory Tests 2 03/16/21 20:47: Bedside Glucose (Misc Panel) 127H 03/17/21 05:37: Immature Granulocyte % (Auto) 0.4, Neutrophils (%) (Auto) 62.2, Lymphocytes (%) (Auto) 23.0L, Monocytes (%) (Auto) 12.0H, Eosinophils (%) (Auto) 1.7, Basophils (%) (Auto) 0.7, Neutrophils # (Auto) 6.0, Lymphocytes # (Auto) 2.2, Monocytes # (Auto) 1.2H, Eosinophils # (Auto) 0.2, Basophils # (Auto) 0.1, Nucleated Red Blood Cells % (auto) 0.0, Anion Gap 5L, Glomerular Filtration Rate > 60.0, Calcium Level 8.7 03/17/21 11:51: Bedside Glucose (Misc Panel) 152H CBC/BMP Laboratory Tests 03/17/21 05:37 FSBS Laboratory Tests Test 03/16/21 20:47 03/17/21 11:51 Range/Units Bedside Glucose (Misc Panel) 127 152 70-105 MG/DL Discharge Medications Scheduled Acetaminophen/Diphenhydramine (Acetaminophen Pm Caplet) 1 Each Tablet, 2 TAB PO Q2D, (Reported) EVERY OTHER NIGHT Apixaban (Eliquis) 5 Mg Tablet, 5 MG PO BID, (Reported) Ascorbic Acid (Ascorbic Acid) 500 Mg Tablet, 1 TAB PO DAILY Atorvastatin Calcium (Atorvastatin Calcium) 20 Mg Tablet, 20 MG PO DAILY, (Reported) Ferrous Sulfate (Ferrous Sulfate) 325 Mg Tablet, 325 MG PO DAILY, (Reported) Folic Acid/Multivit-Min/Lutein (Multi-Vitamin Gummies) 1 Each Tab.chew, 2 CHW PO DAILY, (Reported) Folic Acid/Multivit-Min/Lutein (Multi-Vitamin Gummies) 1 Each Tab.chew, 1 CHW PO QHS, (Reported) Furosemide (Furosemide) 40 Mg Tablet, 40 MG PO DAILY, (Reported) Lactulose (Lactulose) 10 Gm/15 Ml Solution, 30 GM PO TID, (Reported) Magnesium Oxide (Magnesium Oxide) 500 Mg Tablet, 500 MG PO BID, (Reported) Metformin HCl (Metformin HCl) 1,000 Mg Tablet, 1,000 MG PO BID, (Reported) Metoprolol Tartrate (Metoprolol Tartrate) 25 Mg Tablet, 25 MG PO BID, (Reported) TAKES WITH 50MG FOR 75MG TOTAL Metoprolol Tartrate (Metoprolol Tartrate) 50 Mg Tablet, 50 MG PO BID, (Reported) TAKES WITH 25MG FOR 75MG TOTAL Omeprazole (Omeprazole) 20 Mg Capsule.dr, 20 MG PO DAILY, (Reported) Ropinirole HCl (Ropinirole HCl) 4 Mg Tablet, 4 MG PO QHS, (Reported) Sertraline HCl (Sertraline HCl) 50 Mg Tablet, 50 MG PO DAILY, (Reported) Spironolactone (Spironolactone) 25 Mg Tablet, 12.5 MG PO DAILY, (Reported) Scheduled PRN Ibuprofen (Ibuprofen) 400 Mg Tablet, 400 MG PO Q6HP PRN for Incisional pain Allergies Coded Allergies: No Known Allergies (Verified , 9/8/21) Phyllis King MD Mar 17, 2021 19:52
[2021-03-17] MEDS ORDERED: APIXABAN 5 MG TAB (ELIQUIS) PO SCH (21:00)
== END 2021-03-17 18:40 | disposition home or self-care (01) | DRG 171 ==
LOC: M ED 14:00 → M ED INP 03-15 02:45 → M PCU 03-16 11:02
PROVIDERS: ADMIT Family Medicine; ATTEND Internal Medicine Nephrology
PROC: 02HK3JZ Insertion of Pacemaker Lead into Right Ventricle, Percutaneous Approach (ICD-10-PCS; 2021-03-16)
PROC: 0JH604Z Insertion of Pacemaker, Single Chamber into Chest Subcutaneous Tissue and Fascia, Open Approach (ICD-10-PCS; principal; 2021-03-16 07:30)
DX: I46.9 Cardiac arrest, cause unspecified (principal); E87.70 Fluid overload, unspecified; I50.9 Heart failure, unspecified; K70.30 Alcoholic cirrhosis of liver without ascites; E66.01 Morbid (severe) obesity due to excess calories; G47.33 Obstructive sleep apnea (adult) (pediatric); E78.5 Hyperlipidemia, unspecified; K21.9 Gastro-esophageal reflux disease without esophagitis; G25.81 Restless legs syndrome; F10.10 Alcohol abuse, uncomplicated; Z91.19 Patient's noncompliance with other medical treatment and regimen; I44.39 Other atrioventricular block; E11.9 Type 2 diabetes mellitus without complications; Z68.38 Body mass index [BMI] 38.0-38.9, adult; Z85.038 Personal history of other malignant neoplasm of large intestine; Z20.822 Contact with and (suspected) exposure to COVID-19; Z79.84 Long term (current) use of oral hypoglycemic drugs; Z79.899 Other long term (current) drug therapy; I48.20 Chronic atrial fibrillation, unspecified

== ENCOUNTER 2021-03-17 11:15 | Outpatient (RCR) | payer BC ==
[~2021-03-17 11:15] MED LIST changes: +ACET25TA12 PO; +FERR1TAB8 PO; +FURO40TA2 PO; +IBUP-1416 PO; +LACT10SO3 PO; +MAGN500T2 PO; +METF10004 PO; +METO50TA7 PO; +MULTCHW12 PO; +ROPI4TAB3 PO; +SPIR-10 PO
[2021-03-17] MEDS ORDERED: IBUP-1114 PO (15:36)
[2021-03-17] MEDS ORDERED: ASCO500T PO (15:36)
== END 2021-03-26 ==
LOC: M PT 11:15
PROVIDERS: ATTEND Orthopaedic Surgery Sports Medicine
DX: Z47.89 Encounter for other orthopedic aftercare (principal); Z98.890 Other specified postprocedural states

== ENCOUNTER 2021-03-23 09:00 | Outpatient (RCR) | payer BC ==
--- NOTE | 2021-03-16 09:22 | REP ---
INDICATION: Post pacemaker implant COMPARISON: 03/14/2021 TECHNIQUE: Portable AP view of the chest FINDINGS: Patient is status post pacemaker placement. The cardiac silhouette is stable. Pacemaker overlies right ventricle. The lung hansen are stable and without focal consolidation or effusion. No pneumothorax. Skeletal structures are intact. IMPRESSION: Status post pacemaker placement. No pneumothorax. <Electronically signed by Deangelo Powers > 03/16/21 0918
--- NOTE | 2021-03-16 14:09 | ECGEPIP ---
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
[~2021-03-23 09:00] MED LIST changes: +APIXABAN 5 MG TAB (ELIQUIS) PO SCH; +ASCO500T PO; +DEXTROSE 50% 50 ML SYRINGE IV PRN; +FUROSEMIDE 40 MG TAB PO SCH; +GLUCAGON INJ 1MG VIAL SC PRN; +GLUCOSE 4GM CHEW TABLET PO PRN; +HumaLOG INSULIN (NovoLOG) PER UNIT SC SCH; +IBUP-1114 PO; +IBUPROFEN 400MG TAB PO PRN; +LACTULOSE 20 GM/30 ML SYRUP UD PO SCH; +MAGNESIUM OXIDE 400MG TAB (MAG-OX) PO SCH; +METOPROLOL TART 25 MG TABLET As Ordered ONE; +METOPROLOL TART 25 MG TABLET PO SCH; +OMEPRAZOLE 20 MG CAP PO SCH; +SERTRALINE HCL 25 MG TABLET PO SCH; +SPIRONOLACTONE 12.5MG PER 1/2 TABLET PO SCH; +ceFAZolin SOD 1 GM in D5W MINI-BAG PLUS 50 ML IV SCH; +metFORMIN (GLUCOPHAGE) 1000 MG TABLET PO SCH; +rOPINIRole 2MG TAB PO SCH
== END 2021-03-26 ==
LOC: M OUTALCOH 09:00
PROVIDERS: ATTEND Psychiatry & Neurology Psychiatry
DX: F10.20 Alcohol dependence, uncomplicated (principal)

== ENCOUNTER → 2021-03-31 | Outpatient (REF) | payer BC ==
[~2021-03-31] MED LIST changes: -APIXABAN 5 MG TAB (ELIQUIS) PO SCH; -DEXTROSE 50% 50 ML SYRINGE IV PRN; -FUROSEMIDE 40 MG TAB PO SCH; -GLUCAGON INJ 1MG VIAL SC PRN; -GLUCOSE 4GM CHEW TABLET PO PRN; -HumaLOG INSULIN (NovoLOG) PER UNIT SC SCH; -IBUPROFEN 400MG TAB PO PRN; -LACTULOSE 20 GM/30 ML SYRUP UD PO SCH; -MAGNESIUM OXIDE 400MG TAB (MAG-OX) PO SCH; -METOPROLOL TART 25 MG TABLET As Ordered ONE; -METOPROLOL TART 25 MG TABLET PO SCH; -OMEPRAZOLE 20 MG CAP PO SCH; -SERTRALINE HCL 25 MG TABLET PO SCH; -SPIRONOLACTONE 12.5MG PER 1/2 TABLET PO SCH; -ceFAZolin SOD 1 GM in D5W MINI-BAG PLUS 50 ML IV SCH; -metFORMIN (GLUCOPHAGE) 1000 MG TABLET PO SCH; -rOPINIRole 2MG TAB PO SCH
== END ==
LOC: M LAB REF 16:35
PROVIDERS: ATTEND Family Medicine
DX: K72.10 Chronic hepatic failure without coma (principal); K70.30 Alcoholic cirrhosis of liver without ascites

== ENCOUNTER 2021-04-03 17:48 | Emergency (ER) | payer BC ==
[~2021-04-03] VITALS: Ht 177.8 cm; Wt 120.5 kg
--- OUTSIDE RECORDS SUMMARY | 2021-04-03 17:56 | CCD | Continuity of Care Document ---
Author Author Dipak AYALA PA-C Organization Unknown Address [address], [place] [address] Phone [phone] Care Team Providers Care Display Department Manager Name Role Phone Keshawn Ogden AUT[facility] [phone] Nader Goldman MD [facility] [phone] Problems Description No Information Available Social History Type Date Description Comments Sex Unknown Tobacco Use Start: Unknown Patient has never smoked Smoking Status Reviewed: 03/23/21 Patient has never smoked Allergies and adverse reactions Description No Information Available Medications Description No Information Available Immunizations Description No Information Available Vital Signs Description No Information Available Results Description No Information Available Procedures Date Code Description Status 03/23/2021 65760 Office/Outpatient Established Mi nimal Problem(S) Completed Medical Devices Description No Information Available Encounters Type Date Location Provider Dx Diagnosis Office Visit 03/23/2021 12:45p Main Office Blanche Ayala PA-C I44.2 Atrioventricular block, complete Assessments Date Code Description Provider 03/23/2021 I44.2 Atrioventricular block, complete Blanche Ayala PA-C Plan of Treatment 03/23/2021 - Blanche Ayala PA-C* I44.2 Atrioventricular block, complete* Recommendations:* 1. You may resume driving and may shower tomorrow. 2. Do not soak in a bath tub or hot tub for another week. 3. Continue to limit the use of your left arm for another week - no lifting your shoulder above 90 degrees and no lifting, pulling or pushing more than 10 lbs. * All * Follow up:* Follow up with Dr. Mcarthur. Functional Status Description No Information Available Mental Status Description No Information Available Referrals Description No Information Available
--- OUTSIDE RECORDS SUMMARY | 2021-04-03 17:56 | CCD | Continuity of Care Document ---
Author Organization Unknown Address Unknown Phone Unavailable Care Team Providers Care Hostess Cashier Name Role Phone Nader Goldman MD AUTM [phone] [facility] Radiology AUTM [phone] Problems Active Problems Provider Date Hemorrhoids Onset: [...] 1/2 by mouth every day 30tabs Milton Montanez, 03/08/20 Ferrous Sulfate 325(65Fe) mg Table ts Take 1 tablet by mouth daily for iron deficiency 90tabs Ranjan Montanez, 03/08/2021 Lactulose 10GM/15ML Solution Take 30 ml by mouth 3 to 4 times daily and titrate to produce 2 to 3 soft stools/day 946ml Milton Montanez DO 03/01/2021 Furosemide 40mg Tablets [...] as Needed For Cough 60caps R05 Martín Montnaez MD 08/18/2019 Cetirizine HCL 10mg Tablets one tab by mouth daily at bed time (only as needed) 30tabs J30.9 Martín Montanez MD 01/17/2018 Lancet Device With Ejector [facility] use as directed 1units Nader Goldman M.D. 06/20/2015 Lancets 30G 30G Misc test twice a day and as needed e11.9 200units Nader Goldman M.D. 06/20/2015 Glucometer [facility] use for evaluation of blood glucose as [...] CPT Code Status Date Vaccine Lot # [id number] Given 01/08/2020 Pneumovax 23 [id number] Given 03/26/2012 Influenza Virus Vaccine 21762 Refused 05/13/2018 Influenza Virus Vaccine, Quadrivalent ([id number]), Derived From Cell [id number] Refused 03/26/2012 Adacel- Tetanus Diphtheria P ertussis [...] Date Facility Test Result H/L Range Note Influenza A/B RSV Covid Amp 03/14/2021 [facility] [address] [place] [address] [phone] Influenza A Amplification NEGATIVE Normal Negati ve 1 Influenza B Amplification NEGATIVE Normal Negative 2 RSV Amplification NEGATIVE Normal Negative 3 Sars Covid-19 Amplification NEGATIVE Normal Negative 4 Arterial Blood Gas 03/14/2021 [facility] nter [address] [place] [address] [phone] ABG pH (Arterial) 7.449 units Normal 7.350-7.450 ABG Partial Pressure Co2 37.6 mmHg Normal 35.0-45.0 ABG Partial Pressure O2 78.1 mmHg Normal 75.0-100.0 ABG Total Co2 26.6 mEq/L Normal 22.0-29.0 ABG Hco3 25.5 mEq/L Normal 22.0-26.0 ABG Base Excess 1.6 Normal -2.0-2.0 ABG Standard Hco3 25.9 mEq/L Normal 22.0-26.0 ABG O2 Saturation 95.4 % Normal 95.0-99.0 Ua W/ Reflex To Culture 03/14/[address] [address] [phone] Appearance, Urine RFX CLEAR Normal Clear Color, Urine RFX FLORENTINO Normal Yellow PH,Urine RFX 5.0 units Normal 5.0-9.0 Specific [place] Ur Auto RFX 1.029 Normal 1.002-1.035 Protein, Urine Auto RFX 1+ mg/dL High Negative Glucose, Urine (Ua) Auto RFX NEGATIVE mg/dL Normal Negative Ketone, Urine Auto RFX TRACE mg/dL High Negative Urobilinogen, Urine Auto RFX 4.0 mg/dL High 0.0-2.0 Bilirubin, Urine Auto RFX NEGATIVE Normal Negative Nitrite, Urine Auto RFX NEGATIVE Normal Negative Leukocyte Esterase Ur Auto RFX NEGATIVE Normal Negative Blood, Urine Blood RFX NEGATIVE Normal Negative WBC, Urine Auto RFX 5 /HPF High 0-3 RBC, Urine Auto RFX 0 /HPF Normal 0-3 Bacteria, Urine Auto RFX NEGATIVE Normal Negative Squam Epithelial Cell Ur Aurfx 0 /HPF Normal 0-6 Mucus, Urine RFX SMALL Normal Negative Hyaline Cast, Urine Auto RFX 0 /LPF Normal 0-1 Laboratory test finding 03/14/[address] [address] [phone] Partial Thromboplastin Time 37.8 seconds Normal 25 .9-37.0 Prothrombin Time/Inr 03/14/2021 [facility] [address] [place] [address] [phone] Prothrombin Time 14.5 seconds High 12.7-14.5 Inr 1.09 Normal 5 CBC With Differential 03/14/[address] [address] [phone] White Blood Count 10.5 10 High 4.0-10.0 Red Blood Count 4.10 10 Low 4.30-6.10 Hemoglobin 12.2 g/dL Low 13.5-17.5 Hematocrit 38.1 % Low 42.0-52.0 Mean Corpuscular Volume 92.9 fl Normal 80.0-96.0 Mean Corpuscular Hemoglobin 29.8 pg Normal 27.0-33.0 Mean Corpuscular HGB Conc 32.0 g/dL Normal 32.0-36.5 Red Cell Distribution Width 14.3 % Normal 11.5-14.5 Platelet Count, Automated 188 10 Normal 150-450 Neutrophils % 62.5 % Normal 36.0-66.0 Lymph % 22.6 % Low 24.0-44.0 [place] % 11.4 % High 2.0-8.0 Eos % 2.1 % Normal 0.0-3.0 Baso % 1.0 % Normal 0.0-1.0 Immature Granulocyte % 0.4 % Normal 0-3.0 Nucleated Red Blood Cell % 0.0 % Normal 0-0 Neutrophils # 6.6 10 Normal 1.5-8.5 Lymph # 2.4 10 Normal 1.5-5.0 [place] # 1.2 10 High 0.0-0.8 Eos # 0.2 10 Normal 0.0-0.5 Baso # 0.1 10 Normal 0.0-0.2 Laboratory test finding 03/14/[address] [id number] [phone] Lipase 411 U/L High 73-393 Ammonia 40 uMOL/L High <32 Lactic Acid Sepsis Protocol 0.9 mmol/L Normal 0.4-2.0 6 Basic Metabolic Profile 03/14/[address] [id number] [phone] Glucose, Fasting 91 mg/dL Normal 70-100 Blood Urea Nitrogen 17 mg/dL Normal 7-18 Creatinine For GFR 0.74 mg/dL Normal 0.70-1.30 Glomerular Filtration Rate > 60.0 Normal >56 7 Sodium Level 140 mEq/L Normal 136-145 Potassium Serum 3.9 mEq/L Normal 3.5-5.1 Chloride Level 106 mEq/L Normal 98-107 Carbon Dioxide Level 28 mEq/L Normal 21-32 Anion Gap 6 mEq/L Low 8-16 Calcium Level 9.3 mg/dL Normal 8.5-10.1 Liver Profile 03/14/2021 [facility] [address] [place] [address] [phone] Ast/Sgot 21 U/L Normal 7-37 Alt/SGPT 30 U/L Normal 12-78 Alkaline Phosphatase 70 U/L Normal 45-117 Bilirubin,Total 1.0 mg/dL Normal 0.2-1.0 Bilirubin,Direct 0.4 mg/dL High 0.0-0.2 Total Protein 7.4 GM/DL Normal 6.4-8.2 Albumin 3.3 GM/DL Normal 3.2-5.2 Albumin/Globulin Ratio 0.8 Normal Cardiac Marker Panel 03/14/2021 [facility] enter [address] [place] [address] [phone] CPK Creatine Phosphokinase 128 U/L Normal 39-30 8 CK-MB Value Mass 2.8 NG/ML Normal <3.6 MB/CK Relative Index 2.19 Normal < Or =4 8 Troponin I < 0.02 NG/ML Normal < 0.10 9 Laboratory test finding 03/08/2021 [facility] Noel Dryer And Washer Mechanic: Dr [place]ín [place] [address] [phone] Magnesium 1.9 mg/dL 1.8 - 2.4 Basic Metabolic Panel 03/08/2021 [facility] shukri laurent Dryer And Washer Mechanic: Dr Martín [place]z [place] [id number] [phone] Glucose 108 mg/dL High 74 - 99 10 BUN 18 mg/dL 7 - 18 Creatinine 0.8 mg/dL 0.6 - 1.3 Sodium 136 mEq/L 136 - 145 Potassium 4.3 mEq/L 3.5 - 5.1 Chloride 100 mEq/L 98 - 107 Carbon Dioxide 31 mEq/L 21 - 32 Calcium 9.5 mg/dL 8.5 - 10.1 GFR >= 60 mL/min >60 GFR >= 60 mL/min >60 11 Laboratory test finding 03/03/2021 [facility] shukri Noel Dryer And Washer Mechanic: Dr Martín [place]z [place], [place] [id number] [phone] Magnesium 1.5 mg/dL Low 1.8 - 2.4 Basic Metabolic Panel 03/03/2021 [facility] shukri laurent Dryer And Washer Mechanic: Dr Martín Montanez [place], [place] [id number] [phone] Glucose 175 mg/dL High 74 - 99 12 BUN 21 mg/dL High 7 - 18 Creatinine 0.7 mg/dL 0.6 - 1.3 Sodium 140 mEq/L 136 - 145 Potassium 4.4 mEq/L 3.5 - 5.1 Chloride 104 mEq/L 98 - 107 Carbon Dioxide 31 mEq/L 21 - 32 Calcium 9.2 mg/dL 8.5 - 10.1 GFR >= 60 mL/min >60 GFR >= 60 mL/min >60 13 Ua Dipstick Only 02/28/2021 [facility] , Dryer And Washer Mechanic: Dr Martín [place] [address] [phone] Urine Color YELLOW Yellow Urine Appearance CLEAR Clear Urine PH 6.0 units 5.0 - 9.0 Urine Specific [place] 1.020 1.005 - 1.030 Urine Leukocytes NEGATIVE Negative Urine Blood NEGATIVE Negative Urine Protein NEGATIVE Negative -Trace Urine Glucose NEGATIVE mg/dL Negative Urine Nitrite NEGATIVE Negative Urine Ketone NEGATIVE mg/dL Negative Urine Bilirubin NEGATIVE Negative Urine Urobilinogen 0.2 mg/dL 0.2 - 1.0 Comprehensive Chem Profile 02/28/2021 [facility] Dryer And Washer Mechanic: Dr Martín [place] [address] [phone] Glucose 111 mg/dL High 74 - 99 14 BUN 18 mg/dL 7 - 18 Creatinine [...] 60 mL/min >60 15 Complete Blood Count 02/28/2021 [facility] shukri gordon Dryer And Washer Mechanic: Dr Martín [place] [address] [phone] WBC 9.2 x10*3/UL 4.1 - 10.9 RBC [...] 2.0 - 7.8 Laboratory test finding 02/28/2021 [place] [address] [phone] Hepatitis B Surface Antibody NEGATIVE Normal Pos itive Laboratory test finding 02/28/[address] [address] [phone] Ferritin 33 NG/ML Normal 26-388 Total Iron Binding Capacit 02/28/[address] [address] [phone] Iron (Fe) 52 g/dL Low 65-175 Total Iron Binding Capacity 456 g/dL High 250-450 Percent Saturation 11.4 % Low 19.7-50.0 Laboratory test finding 02/28/2021 [facility] [address] [address] [phone] Ammonia 48 uMOL/L High <32 Prothrombin Time/Inr 02/28/2021 [facility] [address] [place] [address] [phone] Prothrombin Time 15.4 seconds High 12.7-14.5 Inr 1.18 Normal 16 Hepatitis Profile 02/28/2021 [facility] nter [address] [place] [address] [phone] Hepatitis C Virus Kelly Index 0.1 INDEX Normal <0.8 17 Hepatitis B Surface Antigen NEGATIVE Normal Negative Hepatitis B Core Antibody Igm NEGATIVE Normal Negative Hepatitis A Antibody Igm NEGATIVE Normal Negative Laboratory test finding 02/23/2021 [facility] [address] [place] [address] [phone] NT-Pro BNP 303 pg/mL High <125 Lipase 249 U/L Normal 73-393 Thyroid Stimulating Hormone 1.080 uIU/ML Normal 0.358-3.740 Free T4 1.07 ng/dL Normal 0.76-1.46 Istat Chem8+ Panel 02/23/2021 [facility] [address] [place] [address] [phone] iSTAT HCT 37.0 % Low 38.0-51.0 iSTAT Glucose 145 mg/dL High 70-105 iSTAT Sodium 138 mEq/L Normal 136-145 iSTAT Potassium 4.3 mEq/L Normal 3.5-5.1 iSTAT CA++ 5.2 mg/dL Normal 4.5-5.3 iSTAT Chloride 100 mEq/L Normal 98-109 iSTAT Co2 27.0 MM/L Normal 23.0-27.0 iSTAT BUN 20 mg/dL Normal 8-26 iSTAT Creatinine 0.8 mg/dL Normal 0.6-1.3 Laboratory test finding 02/23/2021 [facility] [address] [place] [address] [phone] iSTAT Troponin 0.00 NG/ML Normal 0.00-0.08 Liver Profile 02/23/2021 [facility] nter [address] [place] [address] [phone] Ast/Sgot 24 U/L Normal 7-37 Alt/SGPT 32 U/L Normal 12-78 Alkaline Phosphatase 67 U/L Normal 45-117 Bilirubin,Total 0.9 mg/dL Normal 0.2-1.0 Bilirubin,Direct 0.3 mg/dL High 0.0-0.2 Total Protein 7.2 GM/DL Normal 6.4-8.2 Albumin 3.1 GM/DL Low 3.2-5.2 Albumin/Globulin Ratio 0.8 Normal Cardiac Marker Panel 02/23/2021 [facility] enter [address] [place] [address] [phone] CPK Creatine Phosphokinase 102 U/L Normal 39-30 8 CK-MB Value Mass 3.3 NG/ML Normal <3.6 MB/CK Relative Index 3.24 Normal < Or =4 18 Troponin I < 0.02 NG/ML Normal < 0.10 19 CBC With Differential 02/23/[address] [address] [phone] White Blood Count 10.8 10 High 4.0-10.0 [...] 36.0-66.0 Lymph % 19.9 % Low 24.0-44.0 [place] % 9.5 % High 2.0-8.0 Eos % 2.3 % Normal 0.0-3.0 Baso % 1.1 % High 0.0-1.0 Immature Granulocyte % 0.4 % Normal 0-3.0 Nucleated Red Blood Cell % 0.0 % Normal 0-0 Neutrophils # 7.2 10 Normal 1.5-8.5 Lymph # 2.1 10 Normal 1.5-5.0 [place] # 1.0 10 High 0.0-0.8 Eos # 0.3 10 Normal 0.0-0.5 Baso # 0.1 10 Normal 0.0-0.2 Influenza A/B RSV Covid Amp 02/23/2021 [facility] [address] [place] [address] [phone] Influenza A Amplification NEGATIVE Normal Negati ve 20 Influenza B Amplification NEGATIVE Normal Negative 21 RSV Amplification NEGATIVE Normal Negative 22 Sars Covid-19 Amplification NEGATIVE Normal Negative 23 Laboratory test finding 02/23/2021 [facility] [address] [place] [address] [phone] iSTAT Troponin 0.00 NG/ML Normal 0.00-0.08 Laboratory test finding 02/23/[address] [address] [phone] iSTAT Troponin 0.01 NG/ML Normal 0.00-0.08 A1c 01/31/2021 [facility] , shukri Dryer And Washer Mechanic: Dr Martín [place] [address] [phone] Hba1c 6.9 % High <5.7 24 Est Avg Glucose 151 mg/dL High 60 - 110 Laboratory test finding 01/31/2021 [facility] shukri bush Dryer And Washer Mechanic: Dr Martín [place] [address] [phone] Magnesium 1.6 mg/dL Low 1.8 - 2.4 Comprehensive Chem Profile 01/31/2021 [facility] shukri sethi Dryer And Washer Mechanic: [place]ín [place] [address] [phone] Glucose 75 mg/dL 74 - 99 25 BUN 14 mg/dL 7 - 18 Creatinine [...] mL/min >60 GFR >= 60 mL/min >60 26 Complete Blood Count 11/10/2020 [facility] Administrator s, pc Dryer And Washer Mechanic: Dr Martín [place] [address] [phone] WBC 9.0 x10*3/UL 4.1 - 10.9 RBC [...] 6.6 x10*3/UL 2.0 - 7.8 A1c 11/10/2020 [facility] Dryer And Washer Mechanic: Dr Martín [place] [address] [phone] Hba1c 6.7 % High <5.7 27 Est Avg Glucose 146 mg/dL High 60 - 110 Comprehensive Chem Profile 11/10/2020 [facility] shukri sethi Dryer And Washer Mechanic: Dr Martín [place] [address] [phone] Glucose 104 mg/dL High 74 - 99 28 BUN 14 mg/dL 7 - 18 Creatinine [...] mL/min >60 GFR >= 60 mL/min >60 29 1 Negative results do not prec lude [...] pathogens. DISCLAIMER: Testing was performed using the [employer] SARS-CoV-2 test. This test was developed and its performance characteristics determined by [employer]. This test has not been FDA cleared [...] authorization is terminated or revoked sooner. 5 THERAPUTIC HUMAN INR VALUES INDICATIONS NORMAL RANGES PROPHYLAXIS/TREATMENT OF: VENOUS THROMBOSIS 2.0-3.0 PULMONARY EMBOLISM 2.0-3.0 PREVENTION OF SYSTEMIC EMBOLISM FROM: TISSUE HEART VALVES 2.0-3.0 ACUTE MYOCARDIAL INFARCTION 2.0-3.0 VALVULAR HEART DISEASE 2.0-3.0 ATRIAL FIBRILLATION 2.0-3.0 MECHANICAL VALVES(HIGH RISK) 2.5-3.5 RECURRENT MYOCARDIAL INFARCTION 2.5-3.5 6 Y/N query for Sepsis Lactate Rule: Y 7 Units are mL/min/1.73 m2 Chronic Kidney Disease Staging per NKF: Stage I & II GFR >=60 Normal to Mildly Decreased Stage III GFR 30-59 Moderately Decreased Stage IV GFR 15-29 Severely Decreased Stage V GFR <15 Very Little GFR Left ESRD GFR <15 on STRATEGIC MANAGER 8 DIAGNOSIS CRITERIA MMB ng/ml Relative Index (RI) NON-AMI < or = 5 N/A ENRIQUEZ ZONE > 5 < or = 4 AMI > 5 > 4 9 Troponin I Reference Interva l for [employer] LOCI: 99th Percentile= 0.00-0.045 ng/ml Risk Stratification: <= 0.10 ng/ml Decreased Risk for Adverse Clinical Events. 0.10-1.50 ng/ml Increased Risk for Adv erse Clinical Events. Evaluation of additional criterion and/or repeat testing in 2-6 hours is suggested to rule out myocardial damage. >= 1.50 ng/ml Indicative of Myocardial Injury. 10 100-125 mg/dL PRE-DIABET ES/FASTING >126 mg/dL DIABETES/FASTING 11 CHRONIC KIDNEY DISEASE STAGI NG PER NKF STAGE I & II GFR >= 60 NORMAL TO MILDLY DECREASED STAGE III GFR 30-59 MODERATELY DECREASED STAGE IV GFR 15-29 SEVERELY DECREASED STAGE V GFR <15 VERY LITTLE GFR LEFT ESRD GFR <15 ON STRATEGIC MANAGER 12 100-125 mg/dL PRE-DIABET ES/FASTING >126 mg/dL DIABETES/FASTING 13 CHRONIC KIDNEY DISEASE STAGI NG PER NKF STAGE I & II GFR >= 60 NORMAL TO MILDLY DECREASED STAGE III GFR 30-59 MODERATELY DECREASED STAGE IV GFR 15-29 SEVERELY DECREASED STAGE V GFR <15 VERY LITTLE GFR LEFT ESRD GFR <15 ON STRATEGIC MANAGER 14 100-125 mg/dL PRE-DIABET ES/FASTING >126 mg/dL DIABETES/FASTING 15 CHRONIC KIDNEY DISEASE STAGI NG PER NKF STAGE I & II GFR >= 60 NORMAL TO MILDLY DECREASED STAGE III GFR 30-59 MODERATELY DECREASED STAGE IV GFR 15-29 SEVERELY DECREASED STAGE V GFR <15 VERY LITTLE GFR LEFT ESRD GFR <15 ON STRATEGIC MANAGER 16 THERAPUTIC HUMAN INR VALUES INDICATIONS NORMAL RANGES PROPHYLAXIS/TREATMENT OF: VENOUS THROMBOSIS 2.0-3.0 PULMONARY EMBOLISM 2.0-3.0 PREVENTION OF SYSTEMIC EMBOLISM FROM: TISSUE HEART VALVES 2.0-3.0 ACUTE MYOCARDIAL INFARCTION 2.0-3.0 VALVULAR HEART DISEASE 2.0-3.0 ATRIAL FIBRILLATION 2.0-3.0 MECHANICAL VALVES(HIGH RISK) 2.5-3.5 RECURRENT MYOCARDIAL INFARCTION 2.5-3.5 17 Negative Not infected with HCV, unless recent infection is suspected or other evidence exists to indicate HCV infection. 18 DIAGNOSIS CRITERIA MMB ng/ml Relative Index (RI) NON-AMI < or = 5 N/A ENRIQUEZ ZONE > 5 < or = 4 AMI > 5 > 4 19 Troponin I Reference Interva l for [employer] LOCI: 99th Percentile= 0.00-0.045 ng/ml Risk Stratification: <= 0.10 ng/ml Decreased Risk for Adverse Clinical Events. 0.10-1.50 ng/ml Increased Risk for Adv erse Clinical Events. Evaluation of additional criterion and/or repeat testing in 2-6 hours is suggested to rule out myocardial damage. >= 1.50 ng/ml Indicative of Myocardial Injury. 20 Negative results do not prec lude influenza or RSV virus infection and should not be used as the sole basis for treatment or other patient management decisions. 21 Negative results do not prec lude influenza or RSV virus infection and should not be used as the sole basis for treatment or other patient management decisions. 22 Negative results do not prec lude influenza or RSV virus infection and should not be used as the sole basis for treatment or other patient management decisions. 23 A false negative result may occur if [...] pathogens. DISCLAIMER: Testing was performed using the [employer] SARS-CoV-2 test. This test was developed and its performance characteristics determined by [employer]. This test has not been FDA cleared [...] the authorization is terminated or revoked sooner. 24 Lab Result Notes: Pre-Diabetes 5.7 - 6.4 % Diabetes = or > 6.5% 25 100-125 mg/dL PRE-DIABET ES/FASTING >126 mg/dL DIABETES/FASTING 26 CHRONIC KIDNEY DISEASE STAGI NG PER NKF STAGE I & II GFR >= 60 NORMAL TO MILDLY DECREASED STAGE III GFR 30-59 MODERATELY DECREASED STAGE IV GFR 15-29 SEVERELY DECREASED STAGE V GFR <15 VERY LITTLE GFR LEFT ESRD GFR <15 ON STRATEGIC MANAGER 27 Lab Result Notes: Pre-Diabetes 5.7 - 6.4 % Diabetes = or > 6.5% 28 100-125 mg/dL PRE-DIABET ES/FASTING >126 mg/dL DIABETES/FASTING 29 CHRONIC KIDNEY DISEASE STAGI NG PER NKF STAGE I & II GFR >= 60 NORMAL TO MILDLY DECREASED STAGE III GFR 30-59 MODERATELY DECREASED STAGE IV GFR 15-29 SEVERELY DECREASED STAGE V GFR <15 VERY LITTLE GFR LEFT ESRD GFR <15 ON STRATEGIC MANAGER Procedures Date Code Description Status 03/03/2021 32876 Office/Outpatient Established Mo d MDM 30-39 Min Completed 02/28/2021 37478 Office/Outpatient Established Mo d MDM 30-39 Min Completed 01/31/2021 67181 Office/Outpatient Established Mo d MDM 30-39 Min Completed 01/31/2021 09338 EKG/Interpretation & Report Comp leted 11/10/2020 44757 Office/Outpatient Established Mo d MDM 30-39 Min Completed 11/09/2020 [id number] Colonoscopy Completed 01/21/2019 [id number] Colonoscopy Completed 12/10/2018 [id number] Colonoscopy Completed 11/13/2018 [id number] Diabetic Retinal Eye Exam Comple nory 06/22/2015 [id number] Diabetic Retinal Eye Exam Comple [facility] Medical Devices Description No Information Available Encounters Type Date Location Provider Dx Diagnosis Office Visit 03/03/2021 11:40a [facility] Chr istopher Jim Thorpe, DO G93.40 Encephalopathy, unspecified G47.01 Insomnia due to medical cond ition K70.30 Alcoholic cirrhosis of liver without ascites R60.9 Edema, unspecified I48.91 Unspecified atrial fibrillat ion Z79.01 continuous churn buttermaker (current) use of a nticoagulants D64.9 Anemia, unspecified E83.42 Hypomagnesemia Office Visit 02/28/2021 10:40a [facility] Montanez DO G93.40 Encephalopathy, unspecified G47.01 Insomnia due to medical cond ition K70.30 Alcoholic cirrhosis of liver without ascites R60.9 Edema, unspecified I48.91 Unspecified atrial fibrillat ion Z79.01 continuous churn buttermaker (current) use of a nticoagulants D64.9 Anemia, unspecified I10 Essential (primary) hyperten margie Office Visit 01/31/2021 1:40p [facility]o Montanez DO Z01.810 Encounter for preprocedural cardiovascular examination M25.511 Pain in right shoulder I48.91 Unspecified atrial fibrillat ion Z79.01 MCC (current) use of a nticoagulants Z79.84 MCC (current) use of o ral hypoglycemic drugs E11.9 Type 2 diabetes mellitus wit hout complications I10 Essential (primary) hyperten margie G47.33 Obstructive sleep apnea (nancy lt) (pediatric) Office Visit 11/10/2020 11:30a [facility] Goldman M.D. 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 Z91.14 Patient's other noncomplianc e with medication regimen Assessments Date Code Description Provider 03/08/2021 K72.10 hepatic encephalopathy NOS Octavio Dooleylogg, DO 03/08/2021 G47.01 Insomnia due to medical conditio n Milton Dooleylogg, DO 03/08/2021 K70.30 Alcoholic cirrhosis of liver wit hout ascites Milton Dooleylogg, DO 03/08/2021 R60.9 Edema, unspecified Douglaser Richa gomezogg, DO 03/08/2021 D50.9 Iron deficiency anemia, unspecif ied Shaileshluna Dooleylogg, DO 03/08/2021 G25.81 Restless legs syndrome Douglas gray Lisseth, DO 03/08/2021 E83.42 Hypomagnesemia Douglasmarina Dooleyl ogg, DO 03/03/2021 G93.40 Encephalopathy, unspecified Chri stopher Dooleylogg, DO 03/03/2021 G47.01 Insomnia due to medical conditio n Shaileshluna Dooleylogg, DO 03/03/2021 K70.30 Alcoholic cirrhosis of liver wit hout ascites Shaileshluna Dooleylogg, DO 03/03/2021 R60.9 Edema, unspecified Shaileshopher K jasonogg, DO 03/03/2021 I48.91 Unspecified atrial fibrillation Milton Dooleylogg, DO 03/03/2021 Z79.01 continuous churn buttermaker (current) use of antic oagulants Milton Dooleylogg, DO 03/03/2021 D64.9 Anemia, unspecified Milton Dooleylogg, DO 03/03/2021 E83.42 Hypomagnesemia Douglasmarina Dooleyl ogg, DO 02/28/2021 G93.40 Encephalopathy, unspecified Chri stop Jim Thorpe, DO 02/28/2021 G47.01 Insomnia due to medical conditio n Shaileshantionettemarina Jim Thorpe, DO 02/28/2021 K70.30 Alcoholic cirrhosis of liver wit hout ascites Shaileshluna Dooleylogg, DO 02/28/2021 R60.9 Edema, unspecified Douglaser K ellogg, DO 02/28/2021 I48.91 Unspecified atrial fibrillation Milton Dooleylogg, DO 02/28/2021 Z79.01 MCC (current) use of antic oagulants Milton Montanez, DO 02/28/2021 D64.9 Anemia, unspecified [facility] 02/28/2021 I10 Essential (primary) hypertension Milton Montanez, DO 01/31/2021 Z01.810 Encounter for preprocedural card iovascular examination Milton Montanez, DO 01/31/2021 M25.511 Pain in right shoulder Douglasantionette Montanez, DO 01/31/2021 I48.91 Unspecified atrial fibrillation Milton Montanez, DO 01/31/2021 Z79.01 continuous churn buttermaker (current) use of antic oagulants [facility] Mont[facility], DO 01/31/2021 Z79.84 MCC (current) use of oral hypoglycemic drugs Shaileshluna Montanez, DO 01/31/2021 E11.9 Type 2 diabetes mellitus without complications Shaileshluna Montanez, DO 01/31/2021 I10 Essential (primary) hypertension Shaileshluna Montanez, DO 01/31/2021 G47.33 Obstructive sleep apnea (adult) (pediatric) Douglasmarina Jim Thorpe, DO 11/10/2020 E78.5 Hyperlipidemia, unspecified Aamir Goldman M.D. 11/10/2020 I48.91 Unspecified atrial fibrillation Nader Goldman M.D. 11/10/2020 Z79.01 MCC (current) use of antic oagulants Nader Goldman [...] wi th medication regimen Nader Goldman M.D. Plan of Treatment Future Appointment(s):* 03/31/2021 2:30 pm - Nader Goldman M.D. at [facility]. 11/10/2020 - Nader Goldman M.D.* E78.5 Hyperlipidemia, unspecified * I48.91 Unspecified atrial fibrillation * Z79.01 continuous churn buttermaker (current) use of anticoagulants * E11.9 [...] is anticoagulated. We will continue to monitor.3. continuous churn buttermaker (current) use of anticoagulants: Doing well [...] Mental Status Description No Information Available Referrals Refer to Reason for Referral Status Appt Date Scott Hyde MD CONSULT FOR SCREENING EGD DX : NEW ONSET CIRRHOSIS, SHERIDAN Created [address] [address] [phone]
--- OUTSIDE RECORDS SUMMARY | 2021-04-03 17:56 | CCD | Continuity of Care Document ---
Author Author Dipak CID MD Organization Unknown Address [id number] [place] [address] , [facility] [address] [place] [address] Phone [phone] Care Team Providers Care Cloth Laminating Supervisor Name Role Phone Nader Goldman M.D. AUTM [phone] AUTM Unavailable Problems Active Problems Provider Date Obstructive sleep apnea syndrome Erika Mendoza, AidaNYoPYo Onset: 05/22/2010 Essential hypertension Fco Cates MD Onset: 019 Social History Type Date Description Comments Sex Unknown ETOH Use Drinks 6 Alcoholic Beverages Per Day august 23 2019 quit drinking Tobacco Use Start: Unknown Denies Smoking Recreational Drug Use History Of medical ma rijuana, quit Smoking Status Reviewed: 09/22/20 Denies Smoking Exercise Type/Frequency Occasional Mild Exercise stationary bike Allergies and adverse reactions Description No Known Drug Allergies Medications Active Medications SIG Qnty Indications Ordering Provide r Date Methylprednisolone 4mg Tablets dose jessica, take as directed on sheet 1tabs Marek Cid MD Cyclobenzaprine HCL 10mg Tablets 1 [...] a day Clem Mcarthur M.D. (Gov) 0 Lactulose Encephalopathy 10GM/15ML Solution Milton Montanez D.O. 0 Atorvastatin Calcium 20mg Tablets Nader Goldman M.D. History Medications Percocet 5-325mg Tablets 1 by mouth every 4 hours as needed post op pain 30tabs Lanny Esquivel 02/08/2021 - 02/22/2020 Suprep Bowel Prep Kit 17.5-3.13-1.6GM/177ML Solution take per doctor's bowel prep instructions. 354ml Z12.1 1 Fco Cates MD 11/02/2020 - 12/16/2019 Immunizations CPT Code Status Date Vaccine Lot # [id number] Given 02/13/2010 Influenza Virus Split 3 Yrs And Above For Intramuscular Use Vital Signs Date Vital Result Comment 03/27/2021 2:28pm Body Temperature 97.2 F 01/17/2021 1:58pm Body Temperature 97.9 F Results Test Acquired Date Facility Test Result H/L Range Note Laboratory test finding 11/09/2020 [facility] [address] [place] [address] [phone] Pathology Request For Service (SEE NOTE) 1 [...] 1001 Procedures Date Code Description Status 02/08/2021 35126 Surgical Arthroscopy Shoulder W/ Rotator Cuff RPR Completed 02/08/2021 02790 Surgical Arthroscopy Halina W/Corac oacrm Ligm RLS Completed 02/08/2021 11738 Surgical Arthroscopy Shoulder DS TL Claviculc Completed 01/17/2021 73273 Office/Outpatient Established Mo d MDM 30-39 Min Completed 12/20/2020 52895 Office/Outpatient Established Lo w MDM 20-29 Min Completed 12/15/2020 79403 Office/Outpatient Established Mo d MDM 30-39 Min Completed 12/15/202063295 Inject/Drain Arthrocentesis Kylee r Joint/Bursa/Ganglion Cyst Completed 11/09/2020 88684 Colonoscopy Flexible Proximal To Splenic Flexure W/Biopsy Single/ Completed 10/07/2020 73041 Office/Outpatient Established Lo w MDM 20-29 Min Completed Medical Devices Description No Information Available Encounters Type Date Location Provider Dx Diagnosis Office Visit 03/27/2021 2:30p [facility] Marek Cid MD Z48.89 Encounter for other specified surgical aftercare Office Visit 02/21/2021 9:15a [facility] Z47.89 Encounter for other orthopedic aftercare Office Visit 01/17/2021 2:00p [facility] Maerk Cid MD S46.011A Strain of musc/tend the rotator cuff of right shoulder, init Office Visit 12/20/2020 9:15a [facility] Marek Cid MD S46.011D Strain of musc/tend the rotator cuff of right shoulder, subs Office Visit 12/15/2020 10:45a [facility] Marek Cid MD S46.011D Strain of musc/tend the rotator cuff of right shoulder, subs S46.111D Strain of musc/fasc/tend storm g hd bicep, right arm, subs M75.41 Impingement syndrome of righ t shoulder Office Visit 10/07/2020 2:15p [facility] Marek Cid MD S46.111A Strain of musc/fasc/tend long hd bicep, right arm, init M75.41 Impingement syndrome of righ t shoulder S46.011D Strain of musc/tend the rota tor cuff of right shoulder, subs Assessments Date Code Description Provider 03/27/2021 Z48.89 Encounter for other specified kincaid rgical aftercare Marek Cid MD 03/23/2021 Z47.89 Encounter for other orthopedic a ftercare Marek Cid MD 02/21/2021 Z47.89 Encounter for other orthopedic a [...] right shoulder, subsequent encounter Marek Cid MD Plan of Treatment No Information Available Functional Status Description No Information Available Mental Status Description No Information Available Referrals Description No Information Available
--- OUTSIDE RECORDS SUMMARY | 2021-04-03 17:56 | CCD ---
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 Name Role Phone Nader Goldman MD AUTM [phone] [facility] Radiology AUTM [phone] Problems Active Problems Provider Date Hemorrhoids Onset: [...] by mouth every day 30tabs Milton Montanez, DO 03/08/20 21 Ferrous Sulfate 325(65Fe) mg Table ts Take 1 tablet by mouth daily for iron deficiency 90tabs Ranjan Montanez, DO 03/08/2021 Lactulose 10GM/15ML Solution Take 30 ml by mouth 3 to 4 times daily and titrate to produce 2 to 3 soft stools/day 946ml Milton Montanez, DO 03/01/2021 Furosemide 40mg Tablets Take One Tablet By Mouth Every Day 30tabs Milton Montanez, 02/29/20 Metoprolol Tartrate 25mg Tablets 3 tabs by mouth twice a day 180tabs Milton Montanez DO 2020 Atorvastatin Calcium 20mg Tablets 1 by mouth every day 30tabs Nader Goldman M.D. 09/01/2020 Ropinirole HCL 4mg Tablets take one tablet by mouth at bedtime 90tabs Nader Goldman M.D. 021 Metformin HCL 1000mg [...] CPT Code Status Date Vaccine Lot # [id number] Given 01/08/2020 Pneumovax 23 [id number] Given 03/26/2012 Influenza Virus Vaccine [id number] Refused 05/13/2018 Influenza Virus Vaccine, Quadrivalent ([id number]), Derived From Cell [id number] Refused 03/26/2012 Adacel- Tetanus Diphtheria P ertussis [...] Note Influenza A/B RSV Covid Amp 03/14/2021 [facility] [address], [place] [id number] [phone] Influenza A Amplification NEGATIVE Normal Negati ve 1 Influenza B Amplification NEGATIVE Normal Negative 2 RSV Amplification NEGATIVE Normal Negative 3 Sars Covid-19 Amplification NEGATIVE Normal Negative 4 Cardiac Marker Panel 03/14/2021 [facility] enter [address], [place] [address] [phone] CPK Creatine Phosphokinase 128 U/L Normal 39-30 8 CK-MB Value Mass 2.8 NG/ML Normal <3.6 MB/CK Relative Index 2.19 Normal < Or =4 5 Troponin I < 0.02 NG/ML Normal < 0.10 6 Liver Profile 03/14/2021 [facility] [address] [place] [address] [phone] Ast/Sgot 21 U/L Normal 7-37 Alt/SGPT 30 U/L Normal 12-78 Alkaline Phosphatase 70 U/L Normal 45-117 Bilirubin,Total 1.0 mg/dL Normal 0.2-1.0 Bilirubin,Direct 0.4 mg/dL High 0.0-0.2 Total Protein 7.4 GM/DL Normal 6.4-8.2 Albumin 3.3 GM/DL Normal 3.2-5.2 Albumin/Globulin Ratio 0.8 Normal Basic Metabolic Profile 03/14/[address] [address] [phone] Glucose, Fasting 91 mg/dL Normal 70-100 Blood [...] 8-16 Calcium Level 9.3 mg/dL Normal 8.5-10.1 Laboratory test finding 03/14/[address] [address] [phone] Lipase 411 U/L High 73-393 Ammonia 40 uMOL/L High <32 Lactic Acid Sepsis Protocol 0.9 mmol/L Normal 0.4-2.0 8 CBC With Differential 03/14/[address] [address] [phone] White Blood Count 10.5 10 High 4.0-10.0 [...] 36.0-66.0 Lymph % 22.6 % Low 24.0-44.0 [place] % 11.4 % High 2.0-8.0 Eos % 2.1 % Normal 0.0-3.0 Baso % 1.0 % Normal 0.0-1.0 Immature Granulocyte % 0.4 % Normal 0-3.0 Nucleated Red Blood Cell % 0.0 % Normal 0-0 Neutrophils # 6.6 10 Normal 1.5-8.5 Lymph # 2.4 10 Normal 1.5-5.0 [place]rien # 1.2 10 High 0.0-0.8 Eos # 0.2 10 Normal 0.0-0.5 Baso # 0.1 10 Normal 0.0-0.2 Prothrombin Time/Inr 03/14/2021 [facility] enter [address] [place] [address] [phone] Prothrombin Time 14.5 seconds High 12.7-14.5 Inr 1.09 Normal 9 Laboratory test finding 03/14/[address] [address] [phone] Partial Thromboplastin Time 37.8 seconds Normal 25 .9-37.0 Ua W/ Reflex To Culture 03/14/[address] [address] [phone] Appearance, Urine RFX CLEAR Normal Clear Color, Urine RFX FLORENTINO Normal Yellow PH,Urine RFX 5.0 units Normal 5.0-9.0 Specific [place] Ur Auto RFX 1.029 Normal 1.002-1.035 Protein, [...] Urine Auto RFX 0 /LPF Normal 0-1 Arterial Blood Gas 03/14/2021 [facility] [address], [place] [address] [phone] ABG pH (Arterial) 7.449 units Normal 7.350-7.450 ABG Partial Pressure Co2 37.6 mmHg Normal 35.0-45.0 ABG Partial Pressure O2 78.1 mmHg Normal 75.0-100.0 ABG Total Co2 26.6 mEq/L Normal 22.0-29.0 ABG Hco3 25.5 mEq/L Normal 22.0-26.0 ABG Base Excess 1.6 Normal -2.0-2.0 ABG Standard Hco3 25.9 mEq/L Normal 22.0-26.0 ABG O2 Saturation 95.4 % Normal 95.0-99.0 Laboratory test finding 03/08/2021 [facility], Field Services Analyst: Dr Martín [place] [address] [phone] Magnesium 1.9 mg/dL 1.8 - 2.4 Basic Metabolic Panel 03/08/2021 [facility], Field Services Analyst: Dr Martín Montanez [place], [place] [id number] [phone] Glucose 108 mg/dL High 74 - 99 10 BUN 18 mg/dL 7 - 18 Creatinine 0.8 mg/dL 0.6 - 1.3 Sodium 136 mEq/L 136 - 145 Potassium 4.3 mEq/L 3.5 - 5.1 Chloride 100 mEq/L 98 - 107 Carbon Dioxide 31 mEq/L 21 - 32 Calcium 9.5 mg/dL 8.5 - 10.1 GFR >= 60 mL/min >60 GFR >= 60 mL/min >60 11 Basic Metabolic Panel 03/03/2021 [facility] Field Services Analyst: Dr Martín [place] [address] [phone] Glucose 175 mg/dL High 74 - 99 12 BUN 21 mg/dL High 7 - 18 Creatinine 0.7 mg/dL 0.6 - 1.3 Sodium 140 mEq/L 136 - 145 Potassium 4.4 mEq/L 3.5 - 5.1 Chloride 104 mEq/L 98 - 107 Carbon Dioxide 31 mEq/L 21 - 32 Calcium 9.2 mg/dL 8.5 - 10.1 GFR >= 60 mL/min >60 GFR >= 60 mL/min >60 13 Laboratory test finding 03/03/2021 [facility] Field Services Analyst: Dr Martín Montanez [place] [id number] [phone] Magnesium 1.5 mg/dL Low 1.8 - 2.4 Prothrombin Time/Inr 02/28/2021 [facility] [address] [place] [address] [phone] Prothrombin Time 15.4 seconds High 12.7-14.5 Inr 1.18 Normal 14 Ua Dipstick Only 02/28/2021 [facility] , Field Services Analyst: Dr Martín Montanez [place] [id number] [phone] Urine Color YELLOW Yellow Urine Appearance CLEAR Clear Urine PH 6.0 units 5.0 - 9.0 Urine Specific [place] 1.020 1.005 - 1.030 Urine Leukocytes NEGATIVE Negative Urine Blood NEGATIVE Negative Urine Protein NEGATIVE Negative -Trace Urine Glucose NEGATIVE mg/dL Negative Urine Nitrite NEGATIVE Negative Urine Ketone NEGATIVE mg/dL Negative Urine Bilirubin NEGATIVE Negative Urine Urobilinogen 0.2 mg/dL 0.2 - 1.0 Comprehensive Chem Profile 02/28/2021 [facility] Field Services Analyst: Dr Martín [place] [address] [phone] Glucose 111 mg/dL High 74 - 99 15 BUN 18 mg/dL 7 - 18 Creatinine [...] 60 mL/min >60 16 Complete Blood Count 02/28/2021 [facility] Field Services Analyst: Dr Martín Montanez [place], [place] [id number] [phone] WBC 9.2 x10*3/UL 4.1 - 10.9 RBC [...] Neut # 6.9 x10*3/UL 2.0 - 7.8 Hepatitis Profile 02/28/2021 [facility] [address] [place] [address] [phone] Hepatitis C Virus Kelly Index 0.1 INDEX Normal <0.8 17 Hepatitis B Surface Antigen NEGATIVE Normal Negative Hepatitis B Core Antibody Igm NEGATIVE Normal Negative Hepatitis A Antibody Igm NEGATIVE Normal Negative Laboratory test finding 02/28/2021 [facility] [address] [place] [address] [phone] Ammonia 48 uMOL/L High <32 Total Iron Binding Capacit 02/28/2021 [facility] [address], [place] [address] [phone] Iron (Fe) 52 g/dL Low 65-175 Total Iron Binding Capacity 456 g/dL High 250-450 Percent Saturation 11.4 % Low 19.7-50.0 Laboratory test finding 02/28/2021 [facility] [address] [place] [address] [phone] Hepatitis B Surface Antibody NEGATIVE Normal Pos itive Laboratory test finding 02/28/[address] [address] [phone] Ferritin 33 NG/ML Normal 26-388 Laboratory test finding 02/23/[address] [address] [phone] iSTAT Troponin 0.00 NG/ML Normal 0.00-0.08 Istat Chem8+ Panel 02/23/2021 [facility] [address] [place] [address] [phone] iSTAT HCT 37.0 % Low 38.0-51.0 iSTAT Glucose 145 mg/dL High 70-105 iSTAT Sodium 138 mEq/L Normal 136-145 iSTAT Potassium 4.3 mEq/L Normal 3.5-5.1 iSTAT CA++ 5.2 mg/dL Normal 4.5-5.3 iSTAT Chloride 100 mEq/L Normal 98-109 iSTAT Co2 27.0 MM/L Normal 23.0-27.0 iSTAT BUN 20 mg/dL Normal 8-26 iSTAT Creatinine 0.8 mg/dL Normal 0.6-1.3 Laboratory test finding 02/23/[address] [address] [phone] NT-Pro BNP 303 pg/mL High <125 Lipase 249 U/L Normal 73-393 Thyroid Stimulating Hormone 1.080 uIU/ML Normal 0.358-3.740 Free T4 1.07 ng/dL Normal 0.76-1.46 Liver Profile 02/23/2021 [facility] [address] [place] [address] [phone] Ast/Sgot 24 U/L Normal 7-37 Alt/SGPT 32 U/L Normal 12-78 Alkaline Phosphatase 67 U/L Normal 45-117 Bilirubin,Total 0.9 mg/dL Normal 0.2-1.0 Bilirubin,Direct 0.3 mg/dL High 0.0-0.2 Total Protein 7.2 GM/DL Normal 6.4-8.2 Albumin 3.1 GM/DL Low 3.2-5.2 Albumin/Globulin Ratio 0.8 Normal Cardiac Marker Panel 02/23/2021 [facility] enter [address] [place] [address] [phone] CPK Creatine Phosphokinase 102 U/L Normal 39-30 8 CK-MB Value Mass 3.3 NG/ML Normal <3.6 MB/CK Relative Index 3.24 Normal < Or =4 18 Troponin I < 0.02 NG/ML Normal < 0.10 19 CBC With Differential 02/23/[address] [address] [phone] White Blood Count 10.8 10 High 4.0-10.0 [...] 36.0-66.0 Lymph % 19.9 % Low 24.0-44.0 Berrien % 9.5 % High 2.0-8.0 Eos % 2.3 % Normal 0.0-3.0 Baso % 1.1 % High 0.0-1.0 Immature Granulocyte % 0.4 % Normal 0-3.0 Nucleated Red Blood Cell % 0.0 % Normal 0-0 Neutrophils # 7.2 10 Normal 1.5-8.5 Lymph # 2.1 10 Normal 1.5-5.0 Berrien # 1.0 10 High 0.0-0.8 Eos # 0.3 10 Normal 0.0-0.5 Baso # 0.1 10 Normal 0.0-0.2 Influenza A/B RSV Covid Amp 02/23/2021 [facility] [address], [place] [address] [phone] Influenza A Amplification NEGATIVE Normal Negati ve 20 Influenza B Amplification NEGATIVE Normal Negative 21 RSV Amplification NEGATIVE Normal Negative 22 Sars Covid-19 Amplification NEGATIVE Normal Negative 23 Laboratory test finding 02/23/2021 [facility] [address] [place] [address] [phone] iSTAT Troponin 0.00 NG/ML Normal 0.00-0.08 Laboratory test finding 02/23/2021 [place] [address] [place] [address] [phone] iSTAT Troponin 0.01 NG/ML Normal 0.00-0.08 A1c 01/31/2021 [facility] , Field Services Analyst: Dr Martín Montanez [place] [id number] [phone] Hba1c 6.9 % High <5.7 24 Est Avg Glucose 151 mg/dL High 60 - 110 Laboratory test finding 01/31/2021 [facility], Field Services Analyst: Dr Martín Montanez [place] [address]278 [phone] Magnesium 1.6 mg/dL Low 1.8 - 2.4 Comprehensive Chem Profile 01/31/2021 [facility], Field Services Analyst: Dr Martín Montanez [place] [address]246 [phone] Glucose 75 mg/dL 74 - 99 25 [...] mL/min >60 26 Complete Blood Count 11/10/2020 [facility] Field Services Analyst: Dr Martín [place] [address] [phone] WBC 9.0 x10*3/UL 4.1 - 10.9 RBC [...] 6.6 x10*3/UL 2.0 - 7.8 A1c 11/10/2020 [facility] Field Services Analyst: Dr Martín [place] [address] [phone] Hba1c 6.7 % High <5.7 27 Est Avg Glucose 146 mg/dL High 60 - 110 Comprehensive Chem Profile 11/10/2020 [facility] Field Services Analyst: Dr Martín [place] [address] [phone] Glucose 104 mg/dL High 74 - 99 [...] pathogens. DISCLAIMER: Testing was performed using the [employer] SARS-CoV-2 test. This test was developed and its performance characteristics determined by [employer]. This test has not been FDA cleared [...] 6 Troponin I Reference Interva l for [place] LOCI: 99th Percentile= 0.00-0.045 ng/ml Risk Stratification: <= 0.10 ng/ml Decreased Risk for Adverse Clinical Events. 0.10-1.50 ng/ml Increased Risk for Adv erse Clinical Events. Evaluation of additional criterion and/or repeat testing in 2-6 hours is suggested to rule out myocardial damage. >= 1.50 ng/ml Indicative of Myocardial Injury. 7 Units are mL/min/1.73 m2 Chronic Kidney Disease Staging per NKF: Stage I & II GFR >=60 Normal to Mildly Decreased Stage III GFR 30-59 Moderately Decreased Stage IV GFR 15-29 Severely Decreased Stage V GFR <15 Very Little GFR Left ESRD GFR <15 on AUTO SUSPENSION AND STEERING MECHANIC 8 Y/N query for Sepsis Lactate Rule: Y 9 THERAPUTIC HUMAN INR VALUES INDICATIONS NORMAL RANGES PROPHYLAXIS/TREATMENT OF: VENOUS THROMBOSIS 2.0-3.0 PULMONARY EMBOLISM 2.0-3.0 PREVENTION OF SYSTEMIC EMBOLISM FROM: TISSUE HEART VALVES 2.0-3.0 ACUTE MYOCARDIAL INFARCTION 2.0-3.0 VALVULAR HEART DISEASE 2.0-3.0 ATRIAL FIBRILLATION 2.0-3.0 MECHANICAL VALVES(HIGH RISK) 2.5-3.5 RECURRENT MYOCARDIAL INFARCTION 2.5-3.5 10 100-125 mg/dL PRE-DIABET ES/FASTING >126 mg/dL DIABETES/FASTING 11 CHRONIC KIDNEY DISEASE STAGI NG PER NKF STAGE I & II GFR >= 60 NORMAL TO MILDLY DECREASED STAGE III GFR 30-59 MODERATELY DECREASED STAGE IV GFR 15-29 SEVERELY DECREASED STAGE V GFR <15 VERY LITTLE GFR LEFT ESRD GFR <15 ON AUTO SUSPENSION AND STEERING MECHANIC 12 100-125 mg/dL PRE-DIABET ES/FASTING >126 mg/dL DIABETES/FASTING 13 CHRONIC KIDNEY DISEASE STAGI NG PER NKF STAGE I & II GFR >= 60 NORMAL TO MILDLY DECREASED STAGE III GFR 30-59 MODERATELY DECREASED STAGE IV GFR 15-29 SEVERELY DECREASED STAGE V GFR <15 VERY LITTLE GFR LEFT ESRD GFR <15 ON AUTO SUSPENSION AND STEERING MECHANIC 14 THERAPUTIC HUMAN INR VALUES INDICATIONS NORMAL RANGES PROPHYLAXIS/TREATMENT OF: VENOUS THROMBOSIS 2.0-3.0 PULMONARY EMBOLISM 2.0-3.0 PREVENTION OF SYSTEMIC EMBOLISM FROM: TISSUE HEART VALVES 2.0-3.0 ACUTE MYOCARDIAL INFARCTION 2.0-3.0 VALVULAR HEART DISEASE 2.0-3.0 ATRIAL FIBRILLATION 2.0-3.0 MECHANICAL VALVES(HIGH RISK) 2.5-3.5 RECURRENT MYOCARDIAL INFARCTION 2.5-3.5 15 100-125 mg/dL PRE-DIABET ES/FASTING >126 mg/dL DIABETES/FASTING 16 CHRONIC KIDNEY DISEASE STAGI NG PER NKF STAGE I & II GFR >= 60 NORMAL TO MILDLY DECREASED STAGE III GFR 30-59 MODERATELY DECREASED STAGE IV GFR 15-29 SEVERELY DECREASED STAGE V GFR <15 VERY LITTLE GFR LEFT ESRD GFR <15 ON AUTO SUSPENSION AND STEERING MECHANIC 17 Negative Not infected with HCV, unless recent infection is suspected or other evidence exists to indicate HCV infection. 18 DIAGNOSIS CRITERIA MMB ng/ml Relative Index (RI) NON-AMI < or = 5 N/A ENRIQUEZ ZONE > 5 < or = 4 AMI > 5 > 4 19 Troponin I Reference Interva l for Siemens [place] LOCI: 99th Percentile= 0.00-0.045 ng/ml Risk Stratification: [...] pathogens. DISCLAIMER: Testing was performed using the [employer] SARS-CoV-2 test. This test was developed and its performance characteristics determined by [employer]. This test has not been FDA cleared [...] LITTLE GFR LEFT ESRD GFR <15 ON AUTO SUSPENSION AND STEERING MECHANIC 27 Lab Result Notes: Pre-Diabetes 5.7 - [...] LITTLE GFR LEFT ESRD GFR <15 ON AUTO SUSPENSION AND STEERING MECHANIC Procedures Date Code Description Status 03/08/2021 11354 Office/Outpatient Established Mo d MDM 30-39 Min Completed 03/03/2021 66659 Office/Outpatient Established Mo d MDM 30-39 Min Completed 02/28/2021 77070 Office/Outpatient Established Mo d MDM 30-39 Min Completed 01/31/2021 44606 Office/Outpatient Established Mo d MDM 30-39 Min Completed 01/31/2021 99494 EKG/Interpretation & Report Comp leted 11/10/2020 95310 Office/Outpatient Established Mo d MDM 30-39 Min Completed 11/09/2020 [id number] Colonoscopy Completed 01/21/2019 [id number] Colonoscopy Completed 12/10/2018 [id number] Colonoscopy Completed 11/13/2018 [id number] Diabetic Retinal Eye Exam Comple nory 06/22/2015 [id number] Diabetic Retinal Eye Exam Comple Liquiteria Devices Description No Information Available Encounters Type Date Location Provider Dx Diagnosis Office Visit 03/08/2021 [facility] [place] [facility] [place] Montane[place] DO K72.10 Chronic hepatic failure with out coma G47.01 Insomnia due to medical cond ition K70.30 Alcoholic cirrhosis of liver without ascites R60.9 Edema, unspecified D50.9 Iron deficiency anemia, unsp ecified G25.81 Restless legs syndrome E83.42 Hypomagnesemia Office Visit 03/03/2021 11:40a [facility] PYoCYo Montanez DO G93.40 Encephalopathy, unspecified G47.01 Insomnia due to medical cond ition K70.30 Alcoholic cirrhosis of liver without ascites R60.9 Edema, unspecified I48.91 Unspecified atrial fibrillat ion Z79.01 [facility] (current) use of a nticoagulants D64.9 Anemia, unspecified E83.42 Hypomagnesemia Office Visit 02/28/2021 10:40a [facility] PKaren Montanez DO G93.40 Encephalopathy, unspecified G47.01 Insomnia due to medical cond ition K70.30 Alcoholic cirrhosis of liver without ascites R60.9 Edema, unspecified I48.91 Unspecified atrial fibrillat ion 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D. 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 helper (current) use of a nticoagulants E11.9 Type [...] Provider 03/08/2021 K72.10 hepatic encephalopathy NOS Octavio Montanez, DO 03/08/2021 G47.01 Insomnia due to medical conditio n Milton Montanez, DO 03/08/2021 K70.30 Alcoholic cirrhosis of liver wit hout ascites Milton Montanez, DO 03/08/2021 R60.9 Edema, unspecified Milton verma, DO 03/08/2021 D50.9 Iron deficiency anemia, unspecif ied Milton Montanez, DO 03/08/2021 G25.81 Restless legs syndrome Douglas Montanez, DO 03/08/2021 E83.42 Hypomagnesemia Milton aguayo, DO 03/03/2021 G93.40 Encephalopathy, unspecified Crystali tona Montanez, DO 03/03/2021 G47.01 Insomnia due to medical conditio n Milton Montanez, DO 03/03/2021 K70.30 Alcoholic cirrhosis of liver wit hout ascites Milton Montanez, DO 03/03/2021 R60.9 Edema, unspecified Milton verma, DO 03/03/2021 I48.91 Unspecified atrial fibrillation Milton Montanez, DO 03/03/2021 Z79.01 exterminator helper (current) use of antic oagulants Milton Montanez, DO 03/03/2021 D64.9 Anemia, unspecified Milton Montanez, DO 03/03/2021 E83.42 Hypomagnesemia Shaileshluna Denny ogg, DO 02/28/2021 G93.40 Encephalopathy, unspecified Chri tona Montanez, DO 02/28/2021 G47.01 Insomnia due to medical conditio n Shaileshluna Montanez, DO 02/28/2021 K70.30 Alcoholic cirrhosis of liver wit hout ascites Shaileshluna Montanez, DO 02/28/2021 R60.9 Edema, unspecified Milton Chaudhry jasonogg, DO 02/28/2021 I48.91 Unspecified atrial fibrillation Shaileshluna Montanez, DO 02/28/2021 Z79.01 [facility] (current) use of antic oagulants Shaileshluna Montanez, DO 02/28/2021 D64.9 Anemia, unspecified Shaileshluna Montanez, DO 02/28/2021 I10 Essential (primary) hypertension Shaileshluna Montanez, DO 01/31/2021 Z01.810 Encounter for preprocedural card iovascular examination Milton Montanez, DO 01/31/2021 M25.511 Pain in right shoulder Douglasantionette Montanez, DO 01/31/2021 I48.91 Unspecified atrial fibrillation Shaileshluna Montanez, DO 01/31/2021 Z79.01 exterminator helper (current) use of antic oagulants Shaileshluna Montanez, DO 01/31/2021 Z79.84 [facility] (current) use of oral hypoglycemic drugs Milton Montanez, DO 01/31/2021 E11.9 Type 2 diabetes mellitus without complications Milton Montanez, DO 01/31/2021 I10 Essential (primary) hypertension Shaileshluna Montanez, DO 01/31/2021 G47.33 Obstructive sleep apnea (adult) (pediatric) Milton Montanez, DO 11/10/2020 E78.5 Hyperlipidemia, unspecified Aamir Goldman M.D. 11/10/2020 I48.91 Unspecified atrial fibrillation Nader Goldman M.D. 11/10/2020 Z79.01 [facility] (current) use of antic oagulants Nader Goldman [...] regimen Nader Goldman M.D. Plan of Treatment 11/10/2020 - Nadre Goldman M.D.* E78.5 Hyperlipidemia, unspecified * I48.91 Unspecified atrial fibrillation * Z79.01 [facility] (current) use of anticoagulants * E11.9 Type [...] is anticoagulated. We will continue to monitor.3. [facility] (current) use of anticoagulants: Doing well with [...] DX : NEW ONSET CIRRHOSIS, SHERIDAN Created [address] [place] [phone] [phone]
--- OUTSIDE RECORDS SUMMARY | 2021-04-03 17:56 | CCD | Continuity of Care Document ---
Author Author Dipak AYALA PA-C Organization Unknown Address [address], [place] [address] Phone [phone] Care Team Providers Care Fire Production Operator Name Role Phone Keshawn Ogden AUTM [phone] Nader Goldman MD AUTM [phone] Problems Description No Information Available Social History Type Date Description Comments Sex Unknown Tobacco Use Start: Unknown Patient has never smoked Smoking Status Reviewed: 03/23/21 Patient has never smoked Allergies and adverse reactions Description No Information Available Medications Description No Information Available Immunizations Description No Information Available Vital Signs Description No Information Available Results Description No Information Available Procedures Description No Information Available Medical Devices Description No Information Available Encounters Description No Information Available Assessments Date Code Description Provider 03/23/2021 I44.2 [...]
--- OUTSIDE RECORDS SUMMARY | 2021-04-03 17:56 | CCD | Continuity of Care Document ---
Author Author Dipak SANCHEZ O Organization Unknown Address [address] [address] Phone [phone] Care Team Providers Care [place] Worker Name Role Phone Nader Goldman MD AUTM [phone] [facility] Radiology AUTM [phone] Problems Active Problems Provider Date Hemorrhoids Onset: [...] Sanchez MD 01/17/2018 Lancet Device With Ejector [facility] [place], [place] use as directed 1unzana Goldman M.D. 06/20/2015 Lancets 30G 30G Misc test twice a day and as needed e11.9 200unzana Goldman M.D. 06/20/2015 [facility] of blood glucose as [...] by mouth twice a day 180tabs Nader Goldmna M.D. 0 Medications Administered in Office Medication SIG Qnty Indications Ordering Provider Date Immunization Adminstration,1 Vaccine/Tox oid Injection Nader Goldman M.D. 020 Immunizations CPT Code Status Date Vaccine Lot # 49211 Given 01/08/2020 Pneumovax 23 [id number] Given 03/26/2012 Influenza Virus Vaccine [id number] Refused 05/13/2018 Influenza Virus Vaccine, Quadrivalent ([id number]), Derived From Cell 32818 Refused 03/26/2012 Adacel- Tetanus Diphtheria P ertussis [...] Note Influenza A/B RSV Covid Amp 03/14/2021 [facility] [address] [place], [place] [id number] [phone] Influenza A Amplification NEGATIVE Normal Negati ve 1 Influenza B Amplification NEGATIVE Normal Negative 2 RSV Amplification NEGATIVE Normal Negative 3 Sars Covid-19 Amplification NEGATIVE Normal Negative 4 Arterial Blood Gas 03/14/2021 [facility] nter [address] [place], [place] [id number] [phone] ABG pH (Arterial) 7.449 units Normal 7.350-7.450 ABG Partial Pressure Co2 37.6 mmHg Normal 35.0-45.0 ABG Partial Pressure O2 78.1 mmHg Normal 75.0-100.0 ABG Total Co2 26.6 mEq/L Normal 22.0-29.0 ABG Hco3 25.5 mEq/L Normal 22.0-26.0 ABG Base Excess 1.6 Normal -2.0-2.0 ABG Standard Hco3 25.9 mEq/L Normal 22.0-26.0 ABG O2 Saturation 95.4 % Normal 95.0-99.0 Ua W/ Reflex To Culture 03/14/[address] [address] [phone] Appearance, Urine RFX CLEAR Normal Clear Color, Urine RFX FLORENTINO Normal Yellow PH,Urine RFX 5.0 units Normal 5.0-9.0 Specific [place] Ur Auto RFX 1.029 Normal 1.002-1.035 Protein, [...] /LPF Normal 0-1 Laboratory test finding 03/14/[address] [address] [phone] Partial Thromboplastin Time 37.8 seconds Normal 25 .9-37.0 Prothrombin Time/Inr 03/14/2021 [facility] enter [address] [place] [address] [phone] Prothrombin Time 14.5 seconds High 12.7-14.5 Inr 1.09 Normal 5 CBC With Differential 03/14/[address] [address] [phone] White Blood Count 10.5 10 High 4.0-10.0 [...] 36.0-66.0 Lymph % 22.6 % Low 24.0-44.0 Craig % 11.4 % High 2.0-8.0 Eos % 2.1 % Normal 0.0-3.0 Baso % 1.0 % Normal 0.0-1.0 Immature Granulocyte % 0.4 % Normal 0-3.0 Nucleated Red Blood Cell % 0.0 % Normal 0-0 Neutrophils # 6.6 10 Normal 1.5-8.5 Lymph # 2.4 10 Normal 1.5-5.0 Craig # 1.2 10 High 0.0-0.8 Eos # 0.2 10 Normal 0.0-0.5 Baso # 0.1 10 Normal 0.0-0.2 Laboratory test finding 03/14/[address] [id number] [phone] Lipase 411 U/L High 73-393 Ammonia 40 uMOL/L High <32 Lactic Acid Sepsis Protocol 0.9 mmol/L Normal 0.4-2.0 6 Basic Metabolic Profile 03/14/[address] [id number] [phone] Glucose, Fasting 91 mg/dL Normal 70-100 Blood [...] 9.3 mg/dL Normal 8.5-10.1 Liver Profile 03/14/2021 [facility] nter [address] [place] [address] [phone] Ast/Sgot 21 U/L Normal 7-37 Alt/SGPT 30 U/L Normal 12-78 Alkaline Phosphatase 70 U/L Normal 45-117 Bilirubin,Total 1.0 mg/dL Normal 0.2-1.0 Bilirubin,Direct 0.4 mg/dL High 0.0-0.2 Total Protein 7.4 GM/DL Normal 6.4-8.2 Albumin 3.3 GM/DL Normal 3.2-5.2 Albumin/Globulin Ratio 0.8 Normal Cardiac Marker Panel 03/14/2021 [facility] enter [address] [place] [address] [phone] CPK Creatine Phosphokinase 128 U/L Normal 39-30 8 CK-MB Value Mass 2.8 NG/ML Normal <3.6 MB/CK Relative Index 2.19 Normal < Or =4 8 Troponin I < 0.02 NG/ML Normal < 0.10 9 Laboratory test finding 03/08/2021 [facility] Return Checker: Dr [place]ín [place] [address] [phone] Magnesium 1.9 mg/dL 1.8 - 2.4 Basic Metabolic Panel 03/08/2021 [facility] Return Checker: Dr Martín [place] [address] [phone] Glucose 108 mg/dL High 74 - 99 [...] mL/min >60 11 Laboratory test finding 03/03/2021 [facility] Return Checker: Dr Martín [place] [address] [phone] Magnesium 1.5 mg/dL Low 1.8 - 2.4 Basic Metabolic Panel 03/03/2021 [facility] Return Checker: Dr Martín [place] [address] [phone] Glucose 175 mg/dL High 74 - 99 [...] mL/min >60 13 Ua Dipstick Only 02/28/2021 [facility] Return Checker: Dr Martín Sanchez [place], [place] [id number] [phone] Urine Color YELLOW Yellow Urine Appearance CLEAR Clear Urine PH 6.0 units 5.0 - 9.0 Urine Specific [place] 1.020 1.005 - 1.030 Urine Leukocytes NEGATIVE Negative Urine Blood NEGATIVE Negative Urine Protein NEGATIVE Negative -Trace Urine Glucose NEGATIVE mg/dL Negative Urine Nitrite NEGATIVE Negative Urine Ketone NEGATIVE mg/dL Negative Urine Bilirubin NEGATIVE Negative Urine Urobilinogen 0.2 mg/dL 0.2 - 1.0 Comprehensive Chem Profile 02/28/2021 [facility] Return Checker: Dr Martín Sanchez [place] [address] [phone] Glucose 111 mg/dL High 74 - 99 [...] mL/min >60 15 Complete Blood Count 02/28/2021 [facility] Return Checker: Dr Martín Sanchez [place], [place] [address] [phone] WBC 9.2 x10*3/UL 4.1 - 10.9 RBC [...] 2.0 - 7.8 Laboratory test finding 02/28/[address] [address] [phone] Hepatitis B Surface Antibody NEGATIVE Normal Pos itive Laboratory test finding 02/28/[address] [address] [phone] Ferritin 33 NG/ML Normal 26-388 Total Iron Binding Capacit 02/28/[address] [address] [phone] Iron (Fe) 52 g/dL Low 65-175 Total Iron Binding Capacity 456 g/dL High 250-450 Percent Saturation 11.4 % Low 19.7-50.0 Laboratory test finding 02/28/[address] [place] [address] [phone] Ammonia 48 uMOL/L High <32 Prothrombin Time/Inr 02/28/2021 [facility] enter [address] [place] [address] [phone] Prothrombin Time 15.4 seconds High 12.7-14.5 Inr 1.18 Normal 16 Hepatitis Profile 02/28/[address] [address] [phone] Hepatitis C Virus Kelly Index 0.1 INDEX Normal <0.8 17 Hepatitis B Surface Antigen NEGATIVE Normal Negative Hepatitis B Core Antibody Igm NEGATIVE Normal Negative Hepatitis A Antibody Igm NEGATIVE Normal Negative Laboratory test finding 02/23/[address] [address] [phone] NT-Pro BNP 303 pg/mL High <125 Lipase 249 U/L Normal 73-393 Thyroid Stimulating Hormone 1.080 uIU/ML Normal 0.358-3.740 Free T4 1.07 ng/dL Normal 0.76-1.46 Istat Chem8+ Panel 02/23/[address] [address] [phone] iSTAT HCT 37.0 % Low 38.0-51.0 iSTAT Glucose 145 mg/dL High 70-105 iSTAT Sodium 138 mEq/L Normal 136-145 iSTAT Potassium 4.3 mEq/L Normal 3.5-5.1 iSTAT CA++ 5.2 mg/dL Normal 4.5-5.3 iSTAT Chloride 100 mEq/L Normal 98-109 iSTAT Co2 27.0 MM/L Normal 23.0-27.0 iSTAT BUN 20 mg/dL Normal 8-26 iSTAT Creatinine 0.8 mg/dL Normal 0.6-1.3 Laboratory test finding 02/23/[address] [address] [phone] iSTAT Troponin 0.00 NG/ML Normal 0.00-0.08 Liver Profile 02/23/[address] [address] [phone] Ast/Sgot 24 U/L Normal 7-37 Alt/SGPT 32 U/L Normal 12-78 Alkaline Phosphatase 67 U/L Normal 45-117 Bilirubin,Total 0.9 mg/dL Normal 0.2-1.0 Bilirubin,Direct 0.3 mg/dL High 0.0-0.2 Total Protein 7.2 GM/DL Normal 6.4-8.2 Albumin 3.1 GM/DL Low 3.2-5.2 Albumin/Globulin Ratio 0.8 Normal Cardiac Marker Panel 02/23/2021 [facility] enter [address] [place] [address] [phone] CPK Creatine Phosphokinase 102 U/L Normal 39-30 8 CK-MB Value Mass 3.3 NG/ML Normal <3.6 MB/CK Relative Index 3.24 Normal < Or =4 18 Troponin I < 0.02 NG/ML Normal < 0.10 19 CBC With Differential 02/23/2021 [place] [address] [place] [address] [phone] White Blood Count 10.8 10 High 4.0-10.0 [...] 36.0-66.0 Lymph % 19.9 % Low 24.0-44.0 Craig % 9.5 % High 2.0-8.0 Eos % 2.3 % Normal 0.0-3.0 Baso % 1.1 % High 0.0-1.0 Immature Granulocyte % 0.4 % Normal 0-3.0 Nucleated Red Blood Cell % 0.0 % Normal 0-0 Neutrophils # 7.2 10 Normal 1.5-8.5 Lymph # 2.1 10 Normal 1.5-5.0 Craig # 1.0 10 High 0.0-0.8 Eos # 0.3 10 Normal 0.0-0.5 Baso # 0.1 10 Normal 0.0-0.2 Influenza A/B RSV Covid Amp 02/23/2021 [facility] [address] [place], [place] [address] [phone] Influenza A Amplification NEGATIVE Normal Negati ve 20 Influenza B Amplification NEGATIVE Normal Negative 21 RSV Amplification NEGATIVE Normal Negative 22 Sars Covid-19 Amplification NEGATIVE Normal Negative 23 Laboratory test finding 02/23/2021 [facility] [address] [place], [place] [address] [phone] iSTAT Troponin 0.00 NG/ML Normal 0.00-0.08 Laboratory test finding 02/23/2021 [place] [address] [place], [place] [address] [phone] iSTAT Troponin 0.01 NG/ML Normal 0.00-0.08 A1c 01/31/2021 [facility] Return Checker: Dr Martín [place] [address] [phone] Hba1c 6.9 % High <5.7 24 Est Avg Glucose 151 mg/dL High 60 - 110 Laboratory test finding 01/31/2021 [facility] Return Checker: Dr Martín Sanchez [place] [id number] [phone] Magnesium 1.6 mg/dL Low 1.8 - 2.4 Comprehensive Chem Profile 01/31/2021 [facility] Return Checker: Dr Martín [place] [address] [phone] Glucose 75 mg/dL 74 - 99 25 [...] mL/min >60 26 Complete Blood Count 11/10/2020 [facility] Return Checker: Dr Martín [place] [address] [phone] WBC 9.0 x10*3/UL 4.1 - 10.9 RBC [...] 6.6 x10*3/UL 2.0 - 7.8 A1c 11/10/2020 [facility] Return Checker: Dr Martín [place] [address] [phone] Hba1c 6.7 % High <5.7 27 Est Avg Glucose 146 mg/dL High 60 - 110 Comprehensive Chem Profile 11/10/2020 [facility] Return Checker: Dr Martín [place] [address] [phone] Glucose 104 mg/dL High 74 - 99 [...] pathogens. DISCLAIMER: Testing was performed using the [employer] SARS-CoV-2 test. This test was developed and its performance characteristics determined by [employer]. This test has not been FDA cleared [...] Little GFR Left ESRD GFR <15 on MARKETING EDITOR 8 DIAGNOSIS CRITERIA MMB ng/ml Relative Index (RI) NON-AMI < or = 5 N/A ENRIQUEZ ZONE > 5 < or = 4 AMI > 5 > 4 9 Troponin I Reference Interva l for [employer] LOCI: 99th Percentile= 0.00-0.045 ng/ml Risk Stratification: [...] LITTLE GFR LEFT ESRD GFR <15 ON MARKETING EDITOR 12 100-125 mg/dL PRE-DIABET ES/FASTING >126 mg/dL DIABETES/FASTING 13 CHRONIC KIDNEY DISEASE STAGI NG PER NKF STAGE I & II GFR >= 60 NORMAL TO MILDLY DECREASED STAGE III GFR 30-59 MODERATELY DECREASED STAGE IV GFR 15-29 SEVERELY DECREASED STAGE V GFR <15 VERY LITTLE GFR LEFT ESRD GFR <15 ON MARKETING EDITOR 14 100-125 mg/dL PRE-DIABET ES/FASTING >126 mg/dL DIABETES/FASTING 15 CHRONIC KIDNEY DISEASE STAGI NG PER NKF STAGE I & II GFR >= 60 NORMAL TO MILDLY DECREASED STAGE III GFR 30-59 MODERATELY DECREASED STAGE IV GFR 15-29 SEVERELY DECREASED STAGE V GFR <15 VERY LITTLE GFR LEFT ESRD GFR <15 ON MARKETING EDITOR 16 THERAPUTIC HUMAN INR VALUES INDICATIONS NORMAL [...] Troponin I Reference Interva l for [employer] LOCI: 99th Percentile= 0.00-0.045 ng/ml Risk Stratification: [...] pathogens. DISCLAIMER: Testing was performed using the [employer] SARS-CoV-2 test. This test was developed and its performance characteristics determined by [employer]. This test has not been FDA cleared [...] LITTLE GFR LEFT ESRD GFR <15 ON MARKETING EDITOR 27 Lab Result Notes: Pre-Diabetes 5.7 - [...] LITTLE GFR LEFT ESRD GFR <15 ON MARKETING EDITOR Procedures Date Code Description Status 03/08/2021 18711 Office/Outpatient Established Mo d MDM 30-39 Min Completed 03/03/2021 69512 Office/Outpatient Established Mo d MDM 30-39 Min Completed 02/28/2021 24756 Office/Outpatient Established Mo d MDM 30-39 Min Completed 01/31/2021 47754 Office/Outpatient Established Mo d MDM 30-39 Min Completed 01/31/2021 56162 EKG/Interpretation & Report Comp leted 11/10/2020 01577 Office/Outpatient Established Mo d MDM 30-39 Min Completed 11/09/2020 [id number] Colonoscopy Completed 01/21/2019 [id number] Colonoscopy Completed 12/10/2018 [id number] Colonoscopy Completed 11/13/2018 [id number] Diabetic Retinal Eye Exam Comple nory 06/22/2015 [id number] Diabetic Retinal Eye Exam Comple [facility] Medical Devices Description No Information Available Encounters Type Date Location Provider Dx Diagnosis Office Visit 03/08/2021 11:00a [facility] DO K72.10 Chronic hepatic failure with out coma G47.01 Insomnia due to medical cond ition K70.30 Alcoholic cirrhosis of liver without ascites R60.9 Edema, unspecified D50.9 Iron deficiency anemia, unsp ecified G25.81 Restless legs syndrome E83.42 Hypomagnesemia Office Visit 03/03/2021 11:40a [facility] Sanchez DO G93.40 Encephalopathy, unspecified G47.01 Insomnia due to medical cond ition K70.30 Alcoholic cirrhosis of liver without ascites R60.9 Edema, unspecified I48.91 Unspecified atrial fibrillat ion Z79.01 snf (current) use of a nticoagulants D64.9 Anemia, unspecified E83.42 Hypomagnesemia Office Visit 02/28/2021 10:40a [facility] Sanchez DO G93.40 Encephalopathy, unspecified G47.01 Insomnia due to medical cond ition K70.30 Alcoholic cirrhosis of liver without ascites R60.9 Edema, unspecified I48.91 Unspecified atrial fibrillat ion Z79.01 snf (current) use of a nticoagulants D64.9 Anemia, unspecified I10 Essential (primary) hyperten margie Office Visit 01/31/2021 1:40p [facility] Sanchez DO Z01.810 Encounter for preprocedural cardiovascular examination M25.511 Pain in right shoulder I48.91 Unspecified atrial fibrillat ion Z79.01 snf (current) use of a nticoagulants Z79.84 intermediate designer (current) use of o ral hypoglycemic drugs E11.9 Type 2 diabetes mellitus wit hout complications I10 Essential (primary) hyperten margie G47.33 Obstructive sleep apnea (nancy lt) (pediatric) Office Visit 11/10/2020 11:30a [facility] Nader Goldman M.D. 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.01 intermediate designer (current) use of a nticoagulants E11.9 Type [...] DO 03/08/2021 G25.81 Restless legs syndrome Douglas Sanchez, DO 03/08/2021 E83.42 Hypomagnesemia Milton Denny ogbyron, DO 03/03/2021 G93.40 Encephalopathy, unspecified Crystali tona Sanchez, DO 03/03/2021 G47.01 Insomnia due to medical conditio n Milton Sanchez, DO 03/03/2021 K70.30 Alcoholic cirrhosis of liver wit hout ascites Milton Sanchez, DO 03/03/2021 R60.9 Edema, unspecified Douglaser Richa gomezogbyron, DO 03/03/2021 I48.91 Unspecified atrial fibrillation Milton Sanchez, DO 03/03/2021 Z79.01 intermediate designer (current) use of antic oagulants Milton Sanchez, DO 03/03/2021 D64.9 Anemia, unspecified Milton Lancasterg, DO 03/03/2021 E83.42 Hypomagnesemia Milton Denny ogg, DO 02/28/2021 G93.40 Encephalopathy, unspecified Chri tona Lancasterg, DO 02/28/2021 G47.01 Insomnia due to medical conditio n Milton Lancasterg, DO 02/28/2021 K70.30 Alcoholic cirrhosis of liver wit hout ascites Shaileshluna Lancasterg, DO 02/28/2021 R60.9 Edema, unspecified Shaileshluna K ellogg, DO 02/28/2021 I48.91 Unspecified atrial fibrillation Milton Lancasterg, DO 02/28/2021 Z79.01 intermediate designer (current) use of antic oagulants Shaileshluna Sanchez, DO 02/28/2021 D64.9 Anemia, unspecified Milton Lancasterg, DO 02/28/2021 I10 Essential (primary) hypertension Shaileshluna Sanchez, DO 01/31/2021 Z01.810 Encounter for preprocedural card iovascular examination Shaileshluna [place], DO 01/31/2021 M25.511 Pain in right shoulder Douglasantionette Sanchez, DO 01/31/2021 I48.91 Unspecified atrial fibrillation Shaileshluna Sanchez, DO 01/31/2021 Z79.01 intermediate designer (current) use of antic oagulants Shaileshluna Sanchez, DO 01/31/2021 Z79.84 snf (current) use of oral hypoglycemic drugs Douglasmarina Sanchez, DO 01/31/2021 E11.9 Type 2 diabetes mellitus without complications Milton Dooleylogg, DO 01/31/2021 I10 Essential (primary) hypertension Douglasmarina Sanchez, DO 01/31/2021 G47.33 Obstructive sleep apnea (adult) (pediatric) Milton Sanchez, DO 11/10/2020 E78.5 Hyperlipidemia, unspecified Aamir Goldman M.D. 11/10/2020 I48.91 Unspecified atrial fibrillation Nader Goldman M.D. 11/10/2020 Z79.01 intermediate designer (current) use of antic oagulants Nader Goldman [...] 2:30 pm - Nader Goldman M.D. at [facility] 11/10/2020 - Nader Goldman M.D.* E78.5 Hyperlipidemia, unspecified * I48.91 Unspecified atrial fibrillation * Z79.01 intermediate designer (current) use of anticoagulants * E11.9 Type [...] anticoagulated. We will continue to monitor.3. intermediate designer (current) use of anticoagulants: Doing well with [...] : [place] [employer], SHERIDAN Created [address] [phone]
--- OUTSIDE RECORDS SUMMARY | 2021-04-03 17:59 | CCD ---
Author Author [facility] Organization [facility] Address Unknown Phone Unavailable Care Team Providers Care Accountant Manager Name Role Phone Isra Goldman MD [...] Unavailable Isra Goldman MD Unavailable Unavailable Isra Goldamn MD Unavailable Unavailable Isra Goldman MD Unavailable Unavailable Isra Goldman MD Unavailable Unavailable Isra Goldman MD Unavailable Unavailable Isra Goldman MD Unavailable Unavailable Isra Goldman MD Unavailable Unavailable Isra Goldman MD Unavailable Unavailable Jones F Nader PARKS Unavailable Unavailable Isra Goldman MD Unavailable Unavailable Isra Goldman MD Unavailable Unavailable Isra Goldman MD Unavailable Unavailable Isra Goldman MD Unavailable Unavailable Isra Goldman MD Unavailable Unavailable Isra Goldman MD Unavailable Unavailable Isra Goldman MD Unavailable Unavailable Jones F Nader PARKS Unavailable Unavailable Isra Goldman MD Unavailable Unavailable Isra Goldman MD Unavailable Unavailable Isra Goldman MD Unavailable Unavailable Isra Goldman MD Unavailable Unavailable Isra Goldman MD Unavailable Unavailable Jones F Nader PARKS Unavailable Unavailable Jones F Nader PARKS Unavailable Unavailable Jones F Nader PARKS Unavailable Unavailable Jones F Nader PARKS Unavailable Unavailable Isra Goldman MD Unavailable Unavailable [...] Unavailable Unavailable Isra Goldman MD Unavailable Unavailable Symenow, Lauren Blanche PA Unavailable Unavailable Symenow, Lauren Blanche PA Unavailable Unavailable Symenow, Lauren Blanche PA Unavailable Unavailable Symenow, Lauren Blanche PA Unavailable Unavailable Symenow, Lauren Blanche PA Unavailable Unavailable Symenow, Lauren Blanche PA Unavailable Unavailable Symenow, Lauren Blanche PA Unavailable Unavailable Symenow, Lauren Blanche PA Unavailable Unavailable Symenow, Lauren Blanche PA Unavailable Unavailable Symenow, Lauren Blanche PA Unavailable Unavailable Symenow, Lauren Blanche PA Unavailable Unavailable Symenow, Lauren Blanche PA Unavailable Unavailable Symenow, Lauren Blanche PA Unavailable Unavailable Symenow, Lauren Blanche PA Unavailable Unavailable Symenow, Lauren Blanche PA Unavailable Unavailable Symenow, Lauren Blanche PA Unavailable Unavailable Symenow, Lauren Blanche PA Unavailable Unavailable Symenow, Lauren Blanche PA Unavailable Unavailable Symenow, Lauren Blanche PA Unavailable Unavailable Symenow, Lauren Blanche PA Unavailable Unavailable Symenow, Lauren Blanche PA Unavailable Unavailable Symenow, Lauren Blanche PA Unavailable Unavailable Symenow, Lauren Blanche PA Unavailable Unavailable Symenow, Lauren Blanche PA Unavailable Unavailable Symenow, Lauren Blanche PA Unavailable Unavailable Symenow, Lauren Blanche PA Unavailable Unavailable Symenow, Lauren Blanche PA Unavailable Unavailable Symenow, Lauren Blanche PA Unavailable Unavailable Symenow, Lauren Blanche PA Unavailable Unavailable Symenow, Lauren Blanche PA Unavailable Unavailable Symenow, Lauren Blanche PA Unavailable Unavailable Symenow, Lauren Blanche PA Unavailable Unavailable Symenow, Lauren Blanche PA Unavailable Unavailable Symenow, Lauren Blanche PA Unavailable Unavailable EUGENE, MARY GRACE PARKS Unavailable [...] Unavailable EUGENE, MARY GRACE PARKS Unavailable Unavailable EUGENEMARY GRACE MD Unavailable Unavailable EUGENEMARY GRACE MD Unavailable Unavailable EUGENEMARY GRACE MD Unavailable Unavailable EUGENEMARY GRACE MD Unavailable Unavailable EUGENEMARY GRACE MD Unavailable Unavailable EUGENEMARY GRACE MD Unavailable Unavailable EUGENEMARY GRACE MD Unavailable Unavailable EUGENEMARY GRACE MD Unavailable Unavailable EUGENEMARY GRACE MD Unavailable Unavailable EUGENEMARY GRACE MD Unavailable Unavailable EUGENEMARY GRACE MD Unavailable Unavailable EUGENE, MARY GRACE PARKS Unavailable Unavailable EUGENEMARY GRACE MD Unavailable Unavailable EUGENE, MARY GRACE PARKS Unavailable Unavailable EUGENE, MARY GRACE PARKS Unavailable Unavailable EUGENEMARY GRACE MD Unavailable Unavailable EUGENEMARY GRACE MD Unavailable Unavailable EUGENEMARY GRACE MD Unavailable Unavailable EUGENEMARY GRACE MD Unavailable Unavailable Mollison, Checo Jara MD Unavailable Unavailable Mollison, Checo Jara MD Unavailable Unavailable Mollison, Checo Jara MD Unavailable Unavailable Mollison, Checo Jara MD Unavailable Unavailable Mollison, Checo Jara MD Unavailable Unavailable Mollison, Checo Jara MD Unavailable Unavailable MollisonCheco MD Unavailable Unavailable Mollison, Checo Jara MD Unavailable Unavailable Mollison, Checo Jara MD Unavailable Unavailable Mollison, Checo Jara MD Unavailable Unavailable Mollison, Checo Jara MD Unavailable Unavailable Mollison, Checo Jara MD Unavailable Unavailable Mollison, Checo Jara MD Unavailable Unavailable Mollison, Checo Jara MD Unavailable Unavailable MollisonCheco MD Unavailable Unavailable Mollison, Checo Jara MD Unavailable Unavailable Mollison, Checo Jara MD Unavailable Unavailable Mollison, Checo Jara MD Unavailable Unavailable Mollison, Checo Jara MD Unavailable Unavailable Mollison, Checo Jara MD Unavailable Unavailable MollisonCheco MD Unavailable Unavailable MollisonCheco MD Unavailable Unavailable MollisonCheco MD Unavailable Unavailable MollisonCheco MD Unavailable Unavailable MollisonCheco MD Unavailable Unavailable MollisonCheco MD Unavailable Unavailable MollisonCheco MD Unavailable Unavailable MollisonCheco MD Unavailable Unavailable MollisonCheco MD Unavailable Unavailable MollisonCheco MD Unavailable Unavailable Avonmore, Christopher DO Unavailable Unavailable Lisseth, Christopher DO Unavailable Unavailable Avonmore, Christopher DO Unavailable Unavailable [place]onmore, Christopher DO Unavailable Unavailable [place]onmore, Christopher DO Unavailable Unavailable Lisseth, Christopher DO Unavailable Unavailable Lisseth, Christopher DO Unavailable Unavailable Lisseth, Christopher DO Unavailable Unavailable Lisseth, Christopher DO Unavailable Unavailable Lisseth, Christopher DO Unavailable Unavailable Re-disclosure Warning The records [...] is protected by Article 27-F of the [facility] Public Health law. If you continue you may have access to information: Regarding HIV / AIDS; Provided by facilities licensed or operated by the [facility] Office of Mental Health; or Provided by the [facility] Office for People With Developmental Disabilities. If such information is present, then the following [facility] mandated warning applies: This information has been [...] law may result in a fine or snf sentence or both. A general authorization for the release of medical or other information is NOT sufficient authorization for further disc losure. Family History Family Member Name Family Member Gender Family Member Status Date o f Status Description Data Source(s) Unknown Male Problem [facility] ([facility]) Unknown Male Problem [facility] ([facility]) Unknown Female Problem [facility] ([facility]) Encounters Encounter Providers Location Date Indications Data Source(s ) Office Visit Attender: Marek Wagoner/Chip/Varghese/Lisa baltazar 03/27/2021 02:30:00 PM EDT [facility] ([facility] Outpatient Attender: Blanche POWER Main Office 03/23/2021 12:45:00 PM EDT [facility] ([facility]) Outpatient Attender: Milton Ocampo 03/08/2021 11:00:00 AM EDT [facility] ([facility] ) Outpatient Attender: MARY GRACE KEENANSJDorisELIUD 01:16:01 PM EDT - 03/03/2021 02:05:15 PM EDT [facility] Outpatient Attender: Milton Arboleda 03/03/2021 11:40:00 AM EDT [facility] ([facility] ) Outpatient Attender: Shaileshluna Arboleda 02/28/2021 10:40:00 AM EDT [facility] ([facility] ) Office Visit Attender: Marek Wagoner/Chip/Varghese/Re indl 02/21/2021 09:15:00 AM EDT [facility] ([facility]) Outpatient Attender: Milton Montanez DO Lisseth Dominguezkaylabasil 01/31/2021 01:40:00 PM EDT [facility] ([facility] ) Outpatient Attender: Marek Wagoner/Chip/Varghese/Re indl 01/17/2021 02:00:00 PM EDT [facility] ([facility]) Outpatient Attender: MARY GRACE LYMAN-SJP.ELIUD 12:00:00 AM EDT - 12/21/2020 10:26:08 AM EDT [facility] Outpatient Attender: Marek Wagoner/Chip/Varghese/Re indl 12/20/2020 09:15:00 AM EDT [facility] ([facility]) Outpatient Attender: Marek Wagoner/Chip/Varghese/Re indl 12/15/2020 10:45:00 AM EDT [facility] ([facility] Outpatient Attender: Nader Hurt 11/10 11:30:00 AM EDT [facility] ([facility] ) Outpatient Attender: MARY GRACE KEENANSJP.ELIUD 10/28/2020 12:00:00 AM EDT [facility] Outpatient Attender: Marek Wagoner/Chip/Varghese/Re indl 10/07/2020 02:15:00 PM EDT [facility] ([facility] ) Outpatient Attender: Marek Wagoner/Chip/Varghese/Re indl 09/22/2020 09:00:00 AM EDT [facility] ([facility], ) Outpatient Attender: Nader Hurt 09/08 10:00:00 AM EDT [facility] ([facility] ) Immunizations Vaccine Date Status Description Data Source(s) COVID-19 VACCINE Moderna 10/07/2020 12:00:00 AM EDT completed [facility] Vaccine Series Complete: YESThis Data wa s Submitted to [facility] Via [employer]. COVID-19 VACCINE Moderna 09/09/2020 12:00:00 AM EDT completed [facility] Vaccine Series Complete: NOThis Data was Submitted to [facility] Via [employer]. Medications Medication Brand Name Start Date Product Form Dose Route Admi nistrative Instructions Pharmacy Instructions Status Indications Reaction Description Data Source(s) ferrous sulfate 325 MG Oral Tablet Ferrous Sulfate 03/08/2021 12:00 :00 AM EDT ORAL active MED[facility] ([facility]) Spironolactone 25 MG Oral Tablet Spironolactone 03/08/2021 12:00:00 A M EDT ORAL active [facility] ([facility]) Lactulose 667 MG/ML Oral Solution Lactulose Encephalop athy 10 GM/15ML SOLN Lactulose Encephalopathy 10 GM/15ML SOLN 03/02/2021 12:00:00 AM EDT active [facility] Lactulose 667 MG/ML Oral Solution Lactulose 03/01/2021 12:00:00 AM EDT ORAL active [facility] ([facility]) Furosemide 40 MG Oral Tablet furosemide (LASIX) 40 MG tablet furosemide (LASIX) 40 MG tablet 02/28/2021 12:00:00 AM EDT active [facility] Furosemide 40 MG Oral Tablet Furosemide 02/28/2021 12:00:00 AM EDT active [facility] ([facility]) atorvastatin 20 MG Oral Tablet atorvastatin (LIPITOR) 20 MG tablet atorvastatin (LIPITOR) 20 MG tablet 02/24/2021 12:00:00 AM EDT active [facility] Metoprolol Tartrate 25 MG Oral Tablet me toprolol tartrate (LOPRESSOR) 25 MG tablet metoprolol tartrate (LOPRESSOR) 25 MG tablet 02/24/2021 12:0 0:00 AM EDT 25 mg Oral active Take 25 mg by mo uth daily [facility] Acetaminophen 325 MG / Oxycodone Hydrochloride 5 MG Or al Tablet [Percocet] Percocet 02/08/2021 12:00:00 AM EDT ORAL completed MED[facility] ([facility], ) Metoprolol Tartrate 25 MG Oral Tablet Metoprolol Tartrate 12:00:00 AM EDT ORAL active [facility]) apixaban 5 MG Oral Tablet Apixaban (ELIQUIS) 5 MG TABS tablet Apixaban (ELIQUIS) 5 MG TABS tablet 01/31/2021 12:00:00 AM EDT 5 mg Oral active Paroxysmal atrial fibrillation Take 1 tablet (5 mg total) by mouth 2 (t wo) times a day [facility] Paroxysmal atrial fibrillation Methylprednisolone 4 MG Oral Tablet Methylprednisolone 12/25 12:00:00 AM EDT active MED[facility] ([facility], ) Cyclobenzaprine hydrochloride 10 MG Oral Tablet cyclobenzaprine (FLEXERIL) 10 MG tablet cyclobenzaprine (FLEXERIL) 10 MG tablet 01/02/2021 12:00:[address] [facility] Cyclobenzaprine hydrochloride 10 MG Oral Tablet Cyclobenzapr ine HCL 01/02/2021 12:00:00 AM EDT ORAL active M EDENT ([facility], ) Lisinopril 2.5 MG Oral Tablet lisinopril (PRINIVIL,ZES TRIL) 2.5 MG tablet lisinopril (PRINIVIL,ZESTRIL) 2.5 MG tablet 12/21/2020 12:00:00 AM EDT 2.5 mg Oral aborted Type 2 diabetes mellitus without complication, without long- term current use of insulinHypertension, unspecified type Take 1 tablet (2.5 mg total) by mouth daily [facility] Type 2 diabetes mellitus without complic ation, without long-term current use of insulin Hypertension, unspecified type apixaban 5 MG Oral Tablet Apixaban (ELIQUIS) 5 MG TABS tablet Apixaban (ELIQUIS) 5 MG TABS tablet 12/15/2020 12:00:00 AM EDT 5 mg Oral active Take 1 tablet (5 mg total) by mouth 2 (two) times a day [facility] Suprep Bowel Prep Kit Suprep Bowel Prep Kit 11/02/2020 12:00:00 AM EDT completed [facility] ([facility]) Metoprolol Tartrate 50 MG Oral Tablet me toprolol tartrate (LOPRESSOR) 50 MG tablet metoprolol tartrate (LOPRESSOR) 50 MG tablet 10/28/2020 12:0 0:00 AM EDT 50 mg Oral active Hypertension, unspecified typeParoxysmal atrial fibrillation Take 1 tablet (50 mg total) by mouth 2 ( two) times a day [facility] Hypertension, unspecified type Paroxysmal atrial fibrillation Lisinopril 10 MG Oral Tablet lisinopril (PRINIVIL,ZEST RIL) 10 MG tablet lisinopril (PRINIVIL,ZESTRIL) 10 MG tablet 10/28/2020 12:00:00 AM EDT 5 mg Oral aborted Take 0.5 tablets (5 mg total) by mouth daily [facility] atorvastatin 20 MG Oral Tablet Atorvastatin Calcium 09/01/2020 1 2:00:00 AM EDT ORAL active [facility] ( [facility]) MAGNESIUM GLUCONATE 500 MG Oral Tablet Magnesium Gluconate 0 09/01/2020 12:00:00 AM EDT active [facility] ([facility]) Metformin hydrochloride 1000 MG Oral Tablet Metformin HCL 09/01/2020 12:00:00 AM EDT ORAL active [facility] ([facility]) ropinirole 4 MG Oral Tablet Ropinirole HCL 09/01/2020 12:00:00 AM EDT ORAL active [facility] ([facility]) atorvastatin 40 MG Oral Tablet atorvastatin (LIPITOR) 40 MG tablet atorvastatin (LIPITOR) 40 MG tablet 08/30/2020 12:00:00 AM EDT 40 mg Oral active Take 40 mg by mouth daily [facility] Magnesium Oxide 500 MG Oral Tablet Magnesium Oxide 500 MG TABS Magnesium Oxide 500 MG TABS 08/30/2020 12:00:00 AM EDT 1 {tbl} Oral activ e Take 1 tablet by mouth daily [facility] Metformin hydrochloride 1000 MG Oral Tab let metFORMIN (GLUCOPHAGE) 1000 MG tablet metFORMIN (GLUCOPHAGE) 1000 MG tablet 08/30/2020 12:00:00 AM EDT 1000 mg Oral active Take 1,000 mg by mouth 2 (two) times a day with meals [facility] ropinirole 4 MG Oral Tablet rOPINIRole (REQUIP) 4 MG t ablet rOPINIRole (REQUIP) 4 MG tablet 08/30/2020 12:00:00 AM EDT 4 mg Oral active Take 4 mg by mouth nightly [facility] Pravastatin Sodium 10 MG Oral Tablet pravastatin (PRAV ACHOL) 10 MG tablet pravastatin (PRAVACHOL) 10 MG tablet 01/13/2020 12:00:00 AM EDT 10 mg Oral aborted Hypertension, unspecified ty peParoxysmal atrial fibrillationHyperlipidemia, unspecified hyperlipidemia type Take 1 tablet (10 mg total) by mouth nightly [facility] Hypertension, unspecified type Paroxysmal atrial fibrillation Hyperlipidemia, unspecified hyperlipidem ia type Metoprolol Tartrate 25 MG Oral Tablet me toprolol tartrate (LOPRESSOR) 25 MG tablet metoprolol tartrate (LOPRESSOR) 25 MG tablet 12/16/2019 12:0 0:00 AM EDT 25 mg Oral aborted Take 1 tablet (2 5 mg total) by mouth 2 (two) times a day [facility] Lisinopril 10 MG Oral Tablet lisinopril (PRINIVIL,ZEST RIL) 10 MG tablet lisinopril (PRINIVIL,ZESTRIL) 10 MG tablet 11/12/2019 12:00:00 AM EDT 10 mg Oral aborted Take 10 mg by mouth daily [facility] Hydrochlorothiazide 25 MG Oral Tablet hy drochlorothiazide (HYDRODIURIL) 25 MG tablet hydrochlorothiazide (HYDRODIURIL) 25 MG tablet 020 12:00:00 AM EDT 12.5 mg Oral aborted Take 12.5 mg by mouth daily [facility] Metformin hydrochloride 500 MG Oral Tablet metFORMIN ( GLUCOPHAGE) 500 MG tablet metFORMIN (GLUCOPHAGE) 500 MG tablet 10/24/2019 12:00:00 AM EDT 500 m g Oral aborted Take 500 mg by mouth 4 (four ) times a day [facility] Insurance Providers Payer name Policy type / Coverage type Policy ID Covered green party ID Covered green party's relationship to lopez Policy [place] Plan Information [place] [employer] Part [place] [id number] Family Dependent U [id number] [place] [facility] [id number] Family Dependent U [id number] [place] [facility] [id number] Family Dependent U [id number] [place] [facility] [id number] Family Dependent U [id number] [place] [employer] Part [employer] [id number] Family Dependent U [id number] [place] [employer] [place] [id number] Family Dependent U [id number] [place] [employer] [id number] Family Dependent U [id number] BS [place] [facility] Part B [id number] Family Dependent U [id number] BS [place] [facility] Part B [id number] Family Dependent U [id number] MVP (pr) Commercial [id number] Self [id number] Stella (WC) Workers Compensation [id number] Self [id number] [facility] [id number] SP [id number] [facility] [id number] SP [id number] [employer] Commercial [id number] Self [employer] Commercial [id number] Self [id number] [place] [employer] Commercial [id number] Self [id number] [place] [employer] Commercial [id number] Self [employer] [id number] Deborah PYN [id number] [employer]BS [id number] [employer] B [id number] S PYN [id number] BS [place] Commercial [id number] Self P [id number] BS [place] Commercial [id number] Self P [id number] BS [place] Commercial [id number] Self P [id number] [employer] B [id number] S PYN [id number] [facility] O [id number] S [id number] [place] PPO 302/307 [id number] SP [id number] [employer] Health Maintenance Organization (HMO) [id number] Self [id number] BC[employer] [place] 306/806 [id number] SP [id number] BS [place] Commercial [id number] Self P [id number] BCBS [place] PPO 302/307 [id number] SP [id number] [place] PPO 302/307 [id number] SP [id number] [employer] [place] 306/806 [id number] SP [id number] Problems, Conditions, and Diagnoses Code Display Name Description Problem Type Effective Dates Data Source(s) E11.9 Type 2 diabetes mellitus without complic ations Type 2 diabetes mellitus without complic Diagnosis 12/21/2020 09:25:05 AM EDT [facility] G47.33 Obstructive sleep apnea (adult) (pediatr ic) Obstructive sleep apnea (adult) (pediatr Diagnosis 12/21/2020 09:25:05 AM EDT [facility] I10 Essential (primary) hypertension Essential (primary) h ypertension Diagnosis 12/21/2020 09:25:05 AM EDT [facility] K21.9 Gastro-esophageal reflux disease without esophagitis Gastro-esophageal reflux disease without Diagnosis 12/21/2020 09:25:[address] [facility] F32.9 Major depressive disorder, single episod e, unspecified Major depressive disorder, single episod Diagnosis 12/21/2020 09:25:05 AM EDT [facility] F41.9 Anxiety disorder, unspecified Anxiety disorder, unspec ified Diagnosis 12/21/2020 09:25:05 AM EDT [facility] E78.5 Hyperlipidemia, unspecified Hyperlipidemia, unspecifie d Diagnosis 12/21/2020 09:25:05 AM EDT [facility] I48.0 Paroxysmal atrial fibrillation Paroxysmal atrial fibri llation Diagnosis 12/21/2020 09:25:05 AM EDT [facility] K74.60 Cirrhosis Cirrhosis [id number] 03/03/2021 12:00:00 AM ED T [facility] Surgeries/Procedures Procedure Description Date Indications Data Source(s) OFFICE OUTPATIENT VISIT 5 MINUTES 03/23/2021 12:00:00 AM EDT [facility] ([facility]) OFFICE OUTPATIENT VISIT 25 MINUTES 03/08/2021 12:00:00 AM EDT MED[facility] ([facility]) OFFICE OUTPATIENT VISIT 25 MINUTES 03/03/2021 12:00:00 AM EDT [facility] ([facility]) OFFICE OUTPATIENT VISIT 25 MINUTES 02/28/2021 12:00:00 AM [facility] TROPONIN QUANTITATIVE <td>TROPONIN I</td><td>Routine</td><td>02/23/2021</td><td></td><td> </td> 02/23/2021 12:00:00 AM EDT [facility] BLOOD COUNT COMPLETE AUTO&AUTO DIFRNTL WBC COUNT <td>C BC AND DIFFERENTIAL</td><td>Routine</td><td>02/23/2021</td><td></td><td> </td> 02/23/2021 12:00:00 AM EDT [facility] THYROID STIMULATING HORMONE TSH <td>TSH</td><td>Routine</td><td>02/23/2021</td><td></td><td> </td> 02/23/2021 12:00:00 AM EDT [facility] HEPATIC FUNCTION PANEL <td>HEPATIC FUNCTION PANEL</td><td>Routine</td><td>02/23/2021</td><td></td><td> </td> 02/23/2021 12:00:00 AM EDT [facility] BASIC METABOLIC PANEL CALCIUM TOTAL <td>BASIC METABOLI C PANEL</td><td>Routine</td><td>02/23/2021</td><td></td><td> </td> 02/23/2021 12:00:00 AM [facility] ARTHROSCOPY SHOULDER DISTAL CLAVICULECTOMY 02/08/2021 12:00:00 AM EDCleo BARBA ([facility], ) SHOULDER SCOPE BONE SHAVING 02/08/2021 12:00:00 AM EDCleo BARBA ([facility], ) ARTHROSCOPY SHOULDER ROTATOR CUFF REPAIR 02/08/2021 12 :00:00 AM SHAYAN BARBA ([facility], ) ECG ROUTINE ECG W/LEAST 12 LDS W/I&R 01/31/2021 12:00: 00 AM EDCleo BARBA ([facility]) OFFICE OUTPATIENT VISIT 25 MINUTES 01/31/2021 12:00:00 AM EDCleo BARBA ([facility]) OFFICE OUTPATIENT VISIT 25 MINUTES 01/17/2021 12:00:00 AM EDCleo BARBA ([facility], ) OFFICE OUTPATIENT VISIT 15 MINUTES 12/20/2020 12:00:00 AM EDCleo BARBA ([facility], ) OFFICE OUTPATIENT VISIT 25 MINUTES 12/20/2020 12:00:00 AM EDCleo MEDGIL ([facility], ) Inject/Drain Arthrocentesis Major Joint/Bursa/Ganglion Cyst 12/15/2020 12:00:00 AM EDCleo BARBA ([facility]) OFFICE OUTPATIENT VISIT 25 MINUTES 12/15/2020 12:00:00 AM [facility] OFFICE OUTPATIENT VISIT 25 MINUTES 11/10/2020 12:00:00 AM EDT [facility] Colonoscopy Flexible Proximal To Splenic Flexure W/Biopsy Si ngle/ 11/09/2020 12:00:00 AM EDT [facility] Colonoscopy 11/09/2020 12:00:00 AM EDT [facility] ECG ROUTINE ECG W/LEAST 12 LDS W/I&R <td>POCT AMB EKG</td><td>Routine</td><td>10/28/2020</td><td> Paroxysmal atrial fibrillation Hypertension, unspecified type</td><td></td> 10/28/2020 12:00:00 AM EDT Hypertension, unspecified typeParoxysmal atrial fibrillation [facility] Hypertension, unspecified type Paroxysmal atrial fibrillation OFFICE OUTPATIENT VISIT 15 MINUTES 10/07/2020 12:00:00 AM ED[facility] OFFICE OUTPATIENT NEW 45 MINUTES [facility] Trans Care SRV W/I 14D Of DC, Comm W/I 2 Dys Med Rec 09/08/2020 12:00:00 AM EDT [facility] [facility] ([facility] ) Results ID Date Data Source [id number] 03/14/2021 11:38:00 PM EDT [facility] Name Value Range Interpretation Code Description Data Yuridia rce(s) Supporting Document(s) ABG Partial Pressure Co2 37.6 mmHg 35.0-45.0 [facility] ([facility]) ABG pH (Arterial) 7.449 [facility] 7.350-7.450 [facility] ABG Partial Pressure O2 78.1 mmHg 75.0-100.0 [facility] ([facility]) ABG Hco3 25.5 meq/L 22.0-26.0 [facility]) ABG Total Co2 26.6 meq/L 22.0-29.0 [facility] ([facility]) ABG Base Excess 1.6 [facility] ([facility]) ABG O2 Saturation 95.4 % 95.0-99.0 [facility] ([facility]) ABG Standard Hco3 25.9 meq/L 22.0-26.0 [facility] ([facility]) ID Date Data Source [id number] 03/14/2021 11:36:00 PM EDT [facility] ([facility]) Name Value Range Interpretation Code Description Data Yuridia rce(s) Supporting Document(s) Influenza A Amplification Laboratory test result [facility] ([facility]) Negative results do not preclude influen za or RSV virus infection and should not be used as the sole basis for treatment or other patient management decisions. Influenza B Amplification Laboratory test result [facility] ([facility]) Negative results do not preclude influen za or RSV virus infection and should not be used as the sole basis for treatment or other patient management decisions. RSV Amplification Laboratory test result [facility] ([facility]) Negative results do not preclude influen za or RSV virus infection and should not be used as the sole basis for treatment or other patient management decisions. Laboratory test finding (navigational concept) Laboratory test result [facility] ([facility]) A false negative result may occur [...] pathogens. DISCLAIMER: Testing was performed using the [employer] SARS-CoV-2 test. This test was developed and its performance characteristics determined by [employer]. This test has not been FDA cleared [...] or revoked sooner. ID Date Data Source [id number] 03/14/2021 11:36:00 PM EDT [facility] Name Value Range Interpretation Code Description Data Yuridia rce(s) Supporting Document(s) SARS coronavirus 2 RNA [Presence] in Res piratory specimen by KANA with probe detection NEGATIVE [facility] This lab was ordered by [facility] a nd reported by [facility]. ID Date Data Source [id number] 03/14/2021 09:10:00 PM EDT [facility] ([facility] Name Value Range Interpretation Code Description Data Yuridia rce(s) Supporting Document(s) Appearance, Urine RFX Laboratory test result [facility] Color, Urine RFX Laboratory test result [facility]) PH,Urine RFX 5.0 units 5.0-9.0 [facility] Specific Collins Ur Auto RFX 1.029 1.002-1.035 [facility] ([facility]) Protein, Urine Auto RFX Laboratory test result [facility]) Glucose, Urine (Ua) Auto RFX Laboratory test result [facility] Ketone, Urine Auto RFX Laboratory test result [facility] Nitrite, Urine Auto RFX Laboratory test result [facility]) Urobilinogen, Urine Auto RFX 4.0 mg/dL 0.0-2.0 [facility]) Bilirubin, Urine Auto RFX Laboratory test result [facility] ([facility]) WBC, Urine Auto RFX 5 /HPF 0-3 [facility] ([facility] Blood, Urine Blood RFX Laboratory test result [facility] ([facility]) Leukocyte Esterase Ur Auto RFX Laboratory test result [facility] ([facility]) Squam Epithelial Cell Ur Aurfx 0 /HPF 0-6 [facility] RBC, Urine Auto RFX 0 /HPF 0-3 [facility] ([facility]) Bacteria, Urine Auto RFX Laboratory test result [facility] ([facility]) Hyaline Cast, Urine Auto RFX 0 /LPF 0-1 [facility] ([facility]) Mucus, Urine RFX Laboratory test result [facility] ([facility]) ID Date Data Source [id number] 03/14/2021 09:10:00 PM EDT [facility] ([facility]) Name Value Range Interpretation Code Description Data Yuridia rce(s) Supporting Document(s) aPTT in Blood by Coagulation assay 37.8 s 25.9-37.0 [facility] ([facility]) ID Date Data Source [id number] 03/14/2021 09:10:00 PM EDT [facility] ([facility]) Name Value Range Interpretation Code Description Data Yuridia rce(s) Supporting Document(s) Prothrombin Time 14.5 s 12.7-14.5 [facility]) Inr 1.09 [facility]) THERAPUTIC HUMAN INR VALUES INDICATIONS NORMAL RANGES PROPHYLAXIS/TREATMENT OF: VENOUS THROMBOSIS 2.0-3.0 PULMONARY EMBOLISM 2.0-3.0 PREVENTION OF SYSTEMIC EMBOLISM FROM: TISSUE HEART VALVES 2.0-3.0 ACUTE MYOCARDIAL INFARCTION 2.0-3.0 VALVULAR HEART DISEASE 2.0-3.0 ATRIAL FIBRILLATION 2.0-3.0 MECHANICAL VALVES(HIGH RISK) 2.5-3.5 RECURRENT MYOCARDIAL INFARCTION 2.5-3.5 ID Date Data Source [id number] 03/14/2021 09:10:00 PM EDT [facility] ([facility]) Name Value Range Interpretation Code Description Data Yuridia rce(s) Supporting Document(s) White Blood Count 10.5 10 4.0-10.0 [facility] ([facility]) Red Blood Count 4.10 10 4.30-6.10 [facility] ([facility]) Hemoglobin 12.2 g/dL 13.5-17.5 [facility] ([facility]) Mean Corpuscular Hemoglobin 29.8 pg 27.0-33.0 [facility] ([facility]) Hematocrit 38.1 % 42.0-52.0 [facility] Mean Corpuscular Volume 92.9 fl 80.0-96.0 [facility] ([facility]) Platelet Count, Automated 188 10 150-450 [facility] ([facility]) Mean Corpuscular HGB Conc 32.0 g/dL 32.0-36.5 [facility] ([facility]) Red Cell Distribution Width 14.3 % 11.5-14.5 [facility] ([facility]) Weld % 11.4 % 2.0-8.0 [facility]) Lymph % 22.6 % 24.0-44.0 [facility] Neutrophils % 62.5 % 36.0-66.0 [facility] ([facility]) Baso % 1.0 % 0.0-1.0 [facility]) Eos % 2.1 % 0.0-3.0 [facility] Neutrophils # 6.6 10 1.5-8.5 [facility] ([facility]) Immature Granulocyte % 0.4 % 0-3.0 [facility] ([facility]) Nucleated Red Blood Cell % 0.0 % 0-0 [facility] ([facility]) Eos # 0.2 10 0.0-0.5 [facility]) Lymph # 2.4 10 1.5-5.0 [facility] Weld # 1.2 10 0.0-0.8 [facility] Baso # 0.1 10 0.0-0.2 [facility] ID Date Data Source [id number] 03/14/2021 09:10:00 PM EDT [facility] ([facility]) Name Value Range Interpretation Code Description Data Yuridia rce(s) Supporting Document(s) Lipoprotein lipase [Enzymatic activity/volume] in Serum or P lasma 411 U/L 73-393 [facility] ([facility]) Lactate [Mass/volume] in Serum or Plasma 0.9 mmol/L 0.4-2.0 [facility] ([facility]) Y/N query for Sepsis Lactate Rule: Y Ammonia [Mass/volume] in Blood 40 uMOL/L [facility] ([facility]) ID Date Data Source [id number] 03/14/2021 09:10:00 PM EDT [facility] ([facility]) Name Value Range Interpretation Code Description Data Yuridia rce(s) Supporting Document(s) Glucose, Fasting 91 mg/dL 70-100 [facility] ([facility]) Blood Urea Nitrogen 17 mg/dL 7-18 [facility] ([facility]) Creatinine For GFR 0.74 mg/dL 0.70-1.30 [facility] ([facility]) Glomerular Filtration Rate Laboratory test result [facility] ([facility]) <content>Units are mL/min/1.73 m2</content>
<content></content>
<content>Chronic Kidney Disease Staging per NKF:</content>
<content></content>
<content>Stage I & II GFR >=60 Normal to Mildly Decreased</content>
<content>Stage III GFR 30- 59 Moderately Decreased</content>
<content>Stage IV GFR 15-29 Severely Decreased</content>
<content>Stage V GFR <15 Very Little GFR Left</content>
<content>ESRD GFR <15 on DRYWALL APPLICATOR</content>
<content></content> Sodium Level 140 meq/L 136-145 [facility] ([facility]) Potassium Serum 3.9 meq/L 3.5-5.1 [facility] ([facility]) Carbon Dioxide Level 28 meq/L 21-32 [facility] ([facility]) Anion Gap 6 meq/L 8-16 [facility]) Chloride Level 106 meq/L 98-107 [facility] ([facility]) Calcium Level 9.3 mg/dL 8.5-10.1 [facility] ([facility]) ID Date Data Source [id number] 03/14/2021 09:10:00 PM EDT [facility] ([facility]) Name Value Range Interpretation Code Description Data Yuridia rce(s) Supporting Document(s) Ast/Sgot 21 U/L 7-37 [facility] ([facility]) Alkaline Phosphatase 70 U/L 45-117 [facility] ([facility]) Alt/SGPT 30 U/L 12-78 [facility] ([facility]) Bilirubin,Direct 0.4 mg/dL 0.0-0.2 [facility] ([facility]) Bilirubin,Total 1.0 mg/dL 0.2-1.0 [facility] ([facility]) Albumin 3.3 GM/DL 3.2-5.2 [facility] ([facility]) Total Protein 7.4 GM/DL 6.4-8.2 [facility] ([facility]) Albumin/Globulin Ratio 0.8 [facility] ([facility]) ID Date Data Source [id number] 03/14/2021 09:10:00 PM EDT [facility] Name Value Range Interpretation Code Description Data [facility](s) Supporting Document(s) CPK Creatine Phosphokinase 128 U/L 39-308 [facility] ([facility]) CK-MB Value Mass 2.8 ng/mL [facility] MB/CK Relative Index 2.19 [facility] ([facility]) <content>DIAGNOSIS CRITERIA</content>
<content>MMB ng/ml Relative Index (RI)</content>
<content>NON-AMI < or = 5 N/A</content>
<content>ENRIQUEZ ZONE > 5 < or = 4</content>
<content>AMI > 5 > 4</content>
<content></content> Troponin I Laboratory test result [facility] <content>Troponin I Reference Interval f or Siemens Vina LOCI:</content>
<content></content>
<content>99th Percentile= 0.00-0.045 ng/ml</content>
<content></content>
<content>Risk Stratification:</content>
<content><= 0.10 ng/ml Decreased Risk for Adverse Clinical</content>
<content>Events.</content>
<content>0.10-1.50 ng/ml Increased Risk for Adverse Clinical</content>
<content>Events. Evaluation of additional</content>
<content>criterion and/or repeat testing in 2-6</content>
<content>hours is suggested to rule out myocardial</content>
<content>damage.</content>
<content>>= 1.50 ng/ml Indicative of Myocardial Injury.</content>
<content></content> ID Date Data Source [id number] 03/08/2021 11:38:00 AM EDT [facility] ([facility]) Name Value Range Interpretation Code Description Data Yuridia rce(s) Supporting Document(s) Creatinine 0.8 mg/dL 0.6-1.3 [facility]) Glucose [Mass/volume] in Serum or Plasma 108 mg/dL 74-99 [facility] ([facility]) 100-125 mg/dL PRE-DIABETES/FASTING >126 mg/dL DIABETES/FASTING Urea nitrogen [Mass/volume] in Serum or Plasma 18 mg/dL 7-18 [facility] ([facility]) Sodium [Moles/volume] in Serum or Plasma 136 meq/L 136-145 [facility] ([facility]) Chloride [Moles/volume] in Serum or Plasma 100 meq/L 98-107 [facility] ([facility]) Potassium [Moles/volume] in Serum or Plasma 4.3 meq/L 3.5-5.1 [facility] ([facility]) Calcium [Mass/volume] in Serum or Plasma 9.5 mg/dL 8.5-10.1 [facility] ([facility]) Carbon dioxide, total [Moles/volume] in Serum or Plasma 31 meq/L 21 -32 [facility] ([facility]) Glomerular filtration rate/1.73 sq M pre dicted among non-blacks [Volume Rate/Area] in Serum or Plasma by Creatinine-based formula (MDRD) Laboratory test result [facility] ) Glomerular filtration rate/1.73 sq M pre dicted among blacks [Volume Rate/Area] in Serum or Plasma by Creatinine-based formula (MDRD) Laboratory test result [facility] ([facility]) <content>CHRONIC KIDNEY DISEASE STAGING PER NKF</content>
<content></content>
<content>STAGE I & II GFR >= 60 NORMAL TO MILDLY DECREASED</content>
<content>STAGE III GFR 30-59 MODERATELY DECREASED</content>
<content>STAGE IV GFR 15-29 SEVERELY DECREASED</content>
<content>STAGE V GFR <15 VERY LITTLE GFR LEFT</content>
<content>ESRD GFR <15 ON DRYWALL APPLICATOR</content>
<content></content> ID Date Data Source [id number] 03/08/2021 11:38:00 AM EDT [facility] ([facility]) Name Value Range Interpretation Code Description Data Yuridia rce(s) Supporting Document(s) Magnesium 1.9 mg/dL 1.8-2.4 [facility] ID Date Data Source [id number] 03/03/2021 12:14:00 PM EDT [facility] ([facility]) Name Value Range Interpretation Code Description Data Yuridia rce(s) Supporting Document(s) Glucose [Mass/volume] in Serum or Plasma 175 mg/dL 74-99 [facility] ([facility]) 100-125 mg/dL PRE-DIABETES/FASTING >126 mg/dL DIABETES/FASTING Creatinine 0.7 mg/dL 0.6-1.3 [facility] Urea nitrogen [Mass/volume] in Serum or Plasma 21 mg/dL 7-18 [facility] ([facility]) Chloride [Moles/volume] in Serum or Plasma 104 meq/L 98-107 [facility] ([facility]) Potassium [Moles/volume] in Serum or Plasma 4.4 meq/L 3.5-5.1 [facility] ([facility]) Sodium [Moles/volume] in Serum or Plasma 140 meq/L 136-145 [facility] ([facility]) Calcium [Mass/volume] in Serum or Plasma 9.2 mg/dL 8.5-10.1 [facility] ([facility]) Glomerular filtration rate/1.73 sq M pre dicted among non-blacks [Volume Rate/Area] in Serum or Plasma by Creatinine-based formula (MDRD) Laboratory test result [facility] ([facility] ) Carbon dioxide, total [Moles/volume] in Serum or Plasma 31 meq/L 21 -32 [facility] Glomerular filtration rate/1.73 sq M pre dicted among blacks [Volume Rate/Area] in Serum or Plasma by Creatinine-based formula (MDRD) Laboratory test result [facility] ([facility]) <content>CHRONIC KIDNEY DISEASE STAGING PER NKF</content>
<content></content>
<content>STAGE I & II GFR >= 60 NORMAL TO MILDLY DECREASED</content>
<content>STAGE III GFR 30-59 MODERATELY DECREASED</content>
<content>STAGE IV GFR 15-29 SEVERELY DECREASED</content>
<content>STAGE V GFR <15 VERY LITTLE GFR LEFT</content>
<content>ESRD GFR <15 ON DRYWALL APPLICATOR</content>
<content></content> ID Date Data Source [id number] 03/03/2021 12:14:00 PM EDT [facility] Name Value Range Interpretation Code Description Data Yuridia rce(s) Supporting Document(s) Magnesium 1.5 mg/dL 1.8-2.4 [facility] ([facility]) ID Date Data Source [id number] 02/28/2021 11:23:00 AM EDT [facility] ([facility]) Name Value Range Interpretation Code Description Data Yuridia rce(s) Supporting Document(s) Ferritin [Mass/volume] in Serum or Plasma 33 ng/mL 26-388 [facility] ID Date Data Source [id number] 02/28/2021 11:23:00 AM EDT [facility] ([facility]) Name Value Range Interpretation Code Description Data Yuridia rce(s) Supporting Document(s) Hepatitis B virus surface Ab [Presence] in Serum by Im maurice Laboratory test result [facility] ([facility] ) ID Date Data Source [id number] 02/28/2021 11:23:00 AM EDT [facility] ([facility]) Name Value Range Interpretation Code Description Data Yuridia rce(s) Supporting Document(s) Total Iron Binding Capacity 456 ug/dL 250-450 [facility] ([facility]) Percent Saturation 11.4 % 19.7-50.0 [facility] ([facility]) Iron (Fe) 52 ug/dL 65-175 [facility] ([facility]) ID Date Data Source [id number] 02/28/2021 11:23:00 AM EDT [facility]) Name Value Range Interpretation Code Description Data Yuridia rce(s) Supporting Document(s) Ammonia [Mass/volume] in Blood 48 uMOL/L [facility] ([facility]) ID Date Data Source [id number] 02/28/2021 11:23:00 AM EDT [facility] ([facility]) Name Value Range Interpretation Code Description Data Yuridia rce(s) Supporting Document(s) Hepatitis B Surface Antigen Laboratory test result [facility] Hepatitis C Virus Kelly Index 0.1 INDEX [facility] ([facility] Negative Not infected with HCV, unless recent infection is suspected or other evidence exists to indicate HCV infection. Hepatitis B Core Antibody Igm Laboratory test result [facility] ([facility]) Hepatitis A Antibody Igm Laboratory test result [facility]) ID Date Data Source [id number] 02/28/2021 11:23:00 AM EDT [facility] Name Value Range Interpretation Code Description Data Yuridia rce(s) Supporting Document(s) Inr 1.18 [facility] ([facility]) THERAPUTIC HUMAN INR VALUES INDICATIONS NORMAL RANGES PROPHYLAXIS/TREATMENT OF: VENOUS THROMBOSIS 2.0-3.0 PULMONARY EMBOLISM 2.0-3.0 PREVENTION OF SYSTEMIC EMBOLISM FROM: TISSUE HEART VALVES 2.0-3.0 ACUTE MYOCARDIAL INFARCTION 2.0-3.0 VALVULAR HEART DISEASE 2.0-3.0 ATRIAL FIBRILLATION 2.0-3.0 MECHANICAL VALVES(HIGH RISK) 2.5-3.5 RECURRENT MYOCARDIAL INFARCTION 2.5-3.5 Prothrombin Time 15.4 s 12.7-14.5 [facility] ID Date Data Source [id number] 02/28/2021 11:21:00 AM EDT [facility]) Name Value Range Interpretation Code Description Data Yuridia rce(s) Supporting Document(s) Hepatitis B virus surface Ab [Presence] in Serum by [facility] Laboratory test result [facility] ID Date Data Source [id number] 02/28/2021 11:20:00 AM EDT [facility] ([facility]) Name Value Range Interpretation Code Description Data Yuridia rce(s) Supporting Document(s) Erythrocytes [#/volume] in Blood by Automated count 4.40 x10*6/UL 4.2 0-6.30 [facility] Leukocytes [#/volume] in Blood by Automated count 9.2 x10*3/UL 4.1-10 .9 [facility] Hemoglobin [Mass/volume] in Blood 12.8 g/dL 12.0-18.0 [facility] MCV 88.2 fL 80.0-97.0 [facility] ([facility]) Hematocrit [Volume Fraction] of Blood by Automated count 38.8 % 3 7.0-51.0 [facility] MCH 29.1 pg 26.0-32.0 [facility] ([facility]) MCHC 33.0 g/dL 31.0-38.0 [facility] ([facility]) Erythrocyte distribution width [Ratio] by Automated count 13.9 % 11.6-13.7 [facility] ([facility]) MPV 8.5 FL 7.8-11.0 [facility] ([facility]) Lymph % 20.5 % 10.0-58.5 [facility] ([facility]) Platelets [#/volume] in Blood by Automated count 236 x10*3/UL 140-440 [facility] ([facility]) Neut % 74.4 % 37.0-92.0 [facility]) Mid % 5.1 % 1.7-9.3 [facility] Lymph # 1.9 x10*3/UL 0.6-4.1 [facility] ([facility]) Mid # 0.4 x10*3/UL 0.1-0.6 [facility] ([facility]) Neut # 6.9 x10*3/UL 2.0-7.8 [facility] ([facility]) ID Date Data Source [id number] 02/28/2021 11:20:00 AM EDT [facility] ([facility]) Name Value Range Interpretation Code Description Data Yuridia rce(s) Supporting Document(s) Glucose [Mass/volume] in Serum or Plasma 111 mg/dL 74-99 [facility] ([facility]) 100-125 mg/dL PRE-DIABETES/FASTING >126 mg/dL DIABETES/FASTING Urea nitrogen [Mass/volume] in Serum or Plasma 18 mg/dL 7-18 [facility] ([facility]) Potassium [Moles/volume] in Serum or Plasma 4.0 meq/L 3.5-5.1 [facility] ([facility]) Creatinine 0.7 mg/dL 0.6-1.3 [facility] ([facility]) Sodium [Moles/volume] in Serum or Plasma 140 meq/L 136-145 [facility] ([facility]) Carbon dioxide, total [Moles/volume] in Serum or Plasma 29 meq/L 21 -32 [facility] ([facility]) Calcium [Mass/volume] in Serum or Plasma 9.5 mg/dL 8.5-10.1 [facility] ([facility]) Chloride [Moles/volume] in Serum or Plasma 103 meq/L 98-107 [facility] ([facility]) Alkaline phosphatase isoenzyme [Units/volume] in Serum or Pl asma 63 mg/dL 46-116 [facility] ([facility]) Aspartate aminotransferase [Enzymatic activity/volume] in Serum or Plasma 27 U/L 15-37 [facility] ([facility] ) Total Bilirubin 0.7 mg/dL 0.2-1.0 [facility] Albumin [Mass/volume] in Serum or Plasma 3.3 g/dL 3.4-5.0 [facility] Alanine aminotransferase [Enzymatic activity/volume] in Seru m or Plasma 30 U/L 12-78 [facility] Proteinase 3 Ab [Units/volume] in Serum 7.6 g/dL 6.4-8.2 [facility] Glomerular filtration rate/1.73 sq M pre dicted among blacks [Volume Rate/Area] in Serum or Plasma by Creatinine-based formula (MDRD) Laboratory test result [facility] <content>CHRONIC KIDNEY DISEASE STAGING PER NKF</content>
<content></content>
<content>STAGE I & II GFR >= 60 NORMAL TO MILDLY DECREASED</content>
<content>STAGE III GFR 30-59 MODERATELY DECREASED</content>
<content>STAGE IV GFR 15-29 SEVERELY DECREASED</content>
<content>STAGE V GFR <15 VERY LITTLE GFR LEFT</content>
<content>ESRD GFR <15 ON DRYWALL APPLICATOR</content>
<content></content> Glomerular filtration rate/1.73 sq M pre dicted among non-blacks [Volume Rate/Area] in Serum or Plasma by Creatinine-based formula (MDRD) Laboratory test result [facility] ([facility] A/G Ratio 0.77 CALC 1.00-1.90 [facility] ([facility]) ID Date Data Source [id number] 02/28/2021 11:20:00 AM EDT [facility] Name Value Range Interpretation Code Description Data Yuridia rce(s) Supporting Document(s) Urine Color Laboratory test result [facility] ([facility]) Urine PH 6.0 units 5.0-9.0 [facility] ([facility]) Urine Appearance Laboratory test result [facility] ([facility]) Specific gravity of Urine 1.020 1.005-1.030 [facility] ([facility]) Urine Protein Laboratory test result 0-0 [facility] ([facility]) Urine Blood Laboratory test result [facility] ([facility]) Urine Leukocytes Laboratory test result [facility] ([facility]) Glucose [Presence] in [facility]rine [facility] Urine Ketone Laboratory test result [facility] ([facility]) Urine Nitrite Laboratory test result [facility] ([facility]) Urine Urobilinogen 0.2 mg/dL 0.2-1.0 [facility] ([facility]) Bilirubin.total [Mass/volume] in Serum or Plasma Laboratory [facility] resu lt [facility]) ID Date Data Source [id number] 02/23/2021 09:02:00 PM EDT [facility] ([facility]) Name Value Range Interpretation Code Description Data Yuridia rce(s) Supporting Document(s) Laboratory test finding (navigational concept) 0.01 ng/mL 0.00-0.08 [facility] ([facility]) ID Date Data Source [id number] 02/23/2021 06:29:00 PM EDT [facility] ([facility]) Name Value Range Interpretation Code Description Data Yuridia rce(s) Supporting Document(s) Laboratory test finding (navigational concept) 0.00 ng/mL 0.00-0.08 [facility] ([facility]) ID Date Data Source [id number] 02/23/2021 04:20:00 PM EDT [facility]) Name Value Range Interpretation Code Description Data Yuridia rce(s) Supporting Document(s) Influenza A Amplification Laboratory test result [facility] ([facility]) Negative results do not preclude influen za or RSV virus infection and should not be used as the sole basis for treatment or other patient management decisions. Influenza B Amplification Laboratory test result [facility] ([facility]) Negative results do not preclude influen za or RSV virus infection and should not be used as the sole basis for treatment or other patient management decisions. RSV Amplification Laboratory test result [facility] ([facility]) Negative results do not preclude influen za or RSV virus infection and should not be used as the sole basis for treatment or other patient management decisions. Laboratory test finding (navigational concept) Laboratory test result [facility] ([facility]) A false negative result may occur [...] pathogens. DISCLAIMER: Testing was performed using the [employer] SARS-CoV-2 test. This test was developed and its performance characteristics determined by [employer]. This test has not been FDA cleared [...] or revoked sooner. ID Date Data Source [id number] 02/23/2021 04:20:00 PM EDT [facility] Name Value Range Interpretation Code Description Data Yuridia rce(s) Supporting Document(s) SARS coronavirus 2 RNA [Presence] in Res piratory specimen by KANA with probe detection NEGATIVE [facility] This lab was ordered by [facility] a nd reported by [facility]. ID Date Data Source [id number] 02/23/2021 04:12:00 PM EDT [facility] ([facility]) Name Value Range Interpretation Code Description Data Yuridia rce(s) Supporting Document(s) Hemoglobin 12.4 g/dL 13.5-17.5 [facility] White Blood Count 10.8 10 4.0-10.0 [facility] ([facility]) Red Blood Count 4.15 10 4.30-6.10 [facility] ([facility]) Hematocrit 38.4 % 42.0-52.0 [facility] ([facility]) Mean Corpuscular Volume 92.5 fl 80.0-96.0 [facility] ([facility]) Mean Corpuscular Hemoglobin 29.9 pg 27.0-33.0 [facility] ([facility]) Red Cell Distribution Width 13.8 % 11.5-14.5 [facility] ([facility]) Mean Corpuscular HGB Conc 32.3 g/dL 32.0-36.5 [facility] NT ([facility]) Platelet Count, Automated 211 10 150-450 [facility] ([facility]) Neutrophils % 66.8 % 36.0-66.0 [facility] ([facility]) Lymph % 19.9 % 24.0-44.0 [facility]) Weld % 9.5 % 2.0-8.0 [facility] Eos % 2.3 % 0.0-3.0 [facility] Immature Granulocyte % 0.4 % 0-3.0 [facility] ([facility]) Baso % 1.1 % 0.0-1.0 [facility] Neutrophils # 7.2 10 1.5-8.5 [facility] ([facility]) Nucleated Red Blood Cell % 0.0 % 0-0 [facility] ([facility]) Lymph # 2.1 10 1.5-5.0 [facility]) Eos # 0.3 10 0.0-0.5 [facility] Weld # 1.0 10 0.0-0.8 [facility] Baso # 0.1 10 0.0-0.2 [facility] ID Date Data Source [id number] 02/23/2021 04:12:00 PM EDT [facility] ([facility]) Name Value Range Interpretation Code Description Data Yuridia rce(s) Supporting Document(s) CK-MB Value Mass 3.3 ng/mL [facility] ([facility]) CPK Creatine Phosphokinase 102 U/L 39-308 [facility] ([facility]) MB/CK Relative Index 3.24 [facility] ([facility]) <content>DIAGNOSIS CRITERIA</content>
<content>MMB ng/ml Relative Index (RI)</content>
<content>NON-AMI < or = 5 N/A</content>
<content>ENRIQUEZ ZONE > 5 < or = 4</content>
<content>AMI > 5 > 4</content>
<content></content> Troponin I Laboratory [facility] <content>Troponin I Reference Interval f or Siemens Vina LOCI:</content>
<content></content>
<content>99th Percentile= 0.00-0.045 ng/ml</content>
<content></content>
<content>Risk Stratification:</content>
<content><= 0.10 ng/ml Decreased Risk for Adverse Clinical</content>
<content>Events.</content>
<content>0.10-1.50 ng/ml Increased Risk for Adverse Clinical</content>
<content>Events. Evaluation of additional</content>
<content>criterion and/or repeat testing in 2-6</content>
<content>hours is suggested to rule out myocardial</content>
<content>damage.</content>
<content>>= 1.50 ng/ml Indicative of Myocardial Injury.</content>
<content></content> ID Date Data Source [id number] 02/23/2021 04:12:00 PM EDT [facility] ([facility]) Name Value Range Interpretation Code Description Data Yuridia rce(s) Supporting Document(s) Alt/SGPT 32 U/L 12-78 [facility]) Alkaline Phosphatase 67 U/L 45-117 [facility] ([facility]) Ast/Sgot 24 U/L 7-37 [facility] ([facility]) Bilirubin,Total 0.9 mg/dL 0.2-1.0 [facility] ([facility]) Bilirubin,Direct 0.3 mg/dL 0.0-0.2 [facility] ([facility]) Total Protein 7.2 GM/DL 6.4-8.2 [facility] ([facility]) Albumin/Globulin Ratio 0.8 [facility] ([facility]) Albumin 3.1 GM/DL 3.2-5.2 [facility]) ID Date Data Source [id number] 02/23/2021 04:12:00 PM EDT [facility] ([facility]) Name Value Range Interpretation Code Description Data Yuridia rce(s) Supporting Document(s) Lipoprotein lipase [Enzymatic activity/volume] in Serum or P lasma 249 U/L 73-393 [facility] ([facility]) Natriuretic peptide.B prohormone N-Terminal [Mass/volu me] in Serum or Plasma 303 pg/mL [facility] ([facility] ) Thyrotropin [Units/volume] in Serum or Plasma by Detec tion limit <= 0.05 mIU/L 1.080 uIU/ML 0.358-3.740 [facility] ) Thyroxine (T4) free [Mass/volume] in Serum or Plasma 1.07 ng/dL 0.76- 1.46 [facility] ([facility]) ID Date Data Source [id number] 02/23/2021 04:11:00 PM EDT [facility] ([facility]) Name Value Range Interpretation Code Description Data Yuridia rce(s) Supporting Document(s) Laboratory test finding (navigational concept) 0.00 ng/mL 0.00-0.08 [facility] ([facility]) ID Date Data Source [id number] 02/23/2021 04:10:00 PM EDT [facility] ([facility]) Name Value Range Interpretation Code Description Data Yuridia rce(s) Supporting Document(s) Laboratory test finding (navigational concept) 145 mg/dL 70-105 [facility] ([facility]) Laboratory test finding (navigational concept) 37.0 % 38.0-51.0 [facility] ([facility]) Laboratory test finding (navigational concept) 138 meq/L 136-145 [facility] ([facility]) Laboratory test finding (navigational concept) 5.2 mg/dL 4.5-5.3 [facility] ([facility]) Laboratory test finding (navigational concept) 100 meq/L 98-109 [facility] ([facility]) Laboratory test finding (navigational concept) 4.3 meq/L 3.5-5.1 [facility] ([facility]) Laboratory test finding (navigational concept) 20 mg/dL 8-26 [facility] ([facility]) Laboratory test finding (navigational concept) 27.0 MM/L 23.0-27.0 [facility] ([facility]) Laboratory test finding (navigational concept) 0.8 mg/dL 0.6-1.3 [facility] ([facility]) ID Date Data Source [id number] 01/31/2021 02:23:00 PM EDT [facility] ([facility]) Name Value Range Interpretation Code Description Data Yuridia rce(s) Supporting Document(s) Glucose [Mass/volume] in Serum or Plasma 75 mg/dL 74-99 [facility] ([facility]) 100-125 mg/dL PRE-DIABETES/FASTING >126 mg/dL DIABETES/FASTING Sodium [Moles/volume] in Serum or Plasma 139 meq/L 136-145 [facility] ([facility]) Urea nitrogen [Mass/volume] in Serum or Plasma 14 mg/dL 7-18 [facility] ([facility]) Creatinine 0.7 mg/dL 0.6-1.3 [facility] Chloride [Moles/volume] in Serum or Plasma 103 meq/L 98-107 [facility] ([facility]) Carbon dioxide, total [Moles/volume] in Serum or Plasma 30 meq/L 21 -32 [facility] ([facility]) Potassium [Moles/volume] in Serum or Plasma 4.5 meq/L 3.5-5.1 [facility] ([facility]) Alkaline phosphatase isoenzyme [Units/volume] in Serum or Pl asma 63 mg/dL 46-116 [facility] ([facility]) Calcium [Mass/volume] in Serum or Plasma 9.5 mg/dL 8.5-10.1 [facility] ([facility]) Total Bilirubin 0.8 mg/dL 0.2-1.0 [facility]) Albumin [Mass/volume] in Serum or Plasma 3.4 g/dL 3.4-5.0 [facility] ([facility]) Alanine aminotransferase [Enzymatic activity/volume] in Seru m or Plasma 35 U/L 12-78 [facility] ([facility]) Aspartate aminotransferase [Enzymatic activity/volume] in Serum or Plasma 27 U/L 15-37 [facility] ([facility] ) Proteinase 3 Ab [Units/volume] in Serum 7.2 g/dL 6.4-8.2 [facility] ([facility]) Glomerular filtration rate/1.73 sq M pre dicted among non-blacks [Volume Rate/Area] in Serum or Plasma by Creatinine-based formula (MDRD) Laboratory test result [facility] ([facility] ) Glomerular filtration rate/1.73 sq M pre dicted among blacks [Volume Rate/Area] in Serum or Plasma by Creatinine-based formula (MDRD) Laboratory test [facility] ([facility]) <content>CHRONIC KIDNEY DISEASE STAGING PER NKF</content>
<content></content>
<content>STAGE I & II GFR >= 60 NORMAL TO MILDLY DECREASED</content>
<content>STAGE III GFR 30-59 MODERATELY DECREASED</content>
<content>STAGE IV GFR 15-29 SEVERELY DECREASED</content>
<content>STAGE V GFR <15 VERY LITTLE GFR LEFT</content>
<content>ESRD GFR <15 ON DRYWALL APPLICATOR</content>
<content></content> A/G Ratio 0.89 CALC 1.00-1.90 [facility] ([facility]) ID Date Data Source [id number] 01/31/2021 02:23:00 PM EDT [facility] ([facility]) Name Value Range Interpretation Code Description Data Yuridia rce(s) Supporting Document(s) Magnesium 1.6 mg/dL 1.8-2.4 [facility] ([facility]) ID Date Data Source [id number] 01/31/2021 02:23:00 PM EDT [facility] ([facility]) Name Value Range Interpretation Code Description Data Yuridia rce(s) Supporting Document(s) Hemoglobin A1c/Hemoglobin.total in Blood 6.9 % [facility] ([facility]) Lab Result Notes: Pre-Diabetes 5.7 - 6.4 % Diabetes = or > 6.5% Glucose mean value [Mass/volume] in Blood Estimated fr om glycated hemoglobin 151 mg/dL 60-110 [facility] ([facility] ) ID Date Data Source [id number] 01/31/2021 02:23:00 PM EDT [facility] ([facility] Name Value Range Interpretation Code Description Data Yuridia rce(s) Supporting Document(s) Hemoglobin A1c/Hemoglobin.total in Blood Laboratory test result [facility] ([facility]) Magnesium, Serum Laboratory test result [facility] ([facility]) ID Date Data Source [id number] 11/10/2020 12:58:00 PM EDT [facility] ([facility]) Name Value Range Interpretation Code Description Data Yuridia rce(s) Supporting Document(s) Glucose [Mass/volume] in Serum or Plasma 104 mg/dL 74-99 [facility] ([facility]) 100-125 mg/dL PRE-DIABETES/FASTING >126 mg/dL DIABETES/FASTING Creatinine 0.7 mg/dL 0.6-1.3 [facility] Urea nitrogen [Mass/volume] in Serum or Plasma 14 mg/dL 7-18 [facility] ([facility]) Potassium [Moles/volume] in Serum or Plasma 4.5 meq/L 3.5-5.1 [facility] ([facility]) Sodium [Moles/volume] in Serum or Plasma 137 meq/L 136-145 [facility] ([facility]) Chloride [Moles/volume] in Serum or Plasma 103 meq/L 98-107 [facility] ([facility]) Carbon dioxide, total [Moles/volume] in Serum or Plasma 28 meq/L 21 -32 [facility] ([facility]) Alkaline phosphatase isoenzyme [Units/volume] in Serum or Pl asma 67 mg/dL 46-116 [facility] ([facility]) Calcium [Mass/volume] in Serum or Plasma 9.8 mg/dL 8.5-10.1 [facility] ([facility]) Aspartate aminotransferase [Enzymatic activity/volume] in Serum or Plasma 24 U/L 15-37 [facility] ([facility] ) Total Bilirubin 0.9 mg/dL 0.2-1.0 [facility] ([facility]) Alanine aminotransferase [Enzymatic activity/volume] in Seru m or Plasma 27 U/L 12-78 [facility] ([facility]) Albumin [Mass/volume] in Serum or Plasma 3.4 g/dL 3.4-5.0 [facility] ([facility]) A/G Ratio 0.85 CALC 1.00-1.90 [facility] ([facility]) Glomerular filtration rate/1.73 sq M pre dicted among non-blacks [Volume Rate/Area] in Serum or Plasma by Creatinine-based formula (MDRD) Laboratory test result [facility] ([facility] ) Proteinase 3 Ab [Units/volume] in Serum 7.4 g/dL 6.4-8.2 [facility] ([facility]) Glomerular filtration rate/1.73 sq M pre dicted among blacks [Volume Rate/Area] in Serum or Plasma by Creatinine-based formula (MDRD) Laboratory test result [facility] ([facility]) <content>CHRONIC KIDNEY DISEASE STAGING PER NKF</content>
<content></content>
<content>STAGE I & II GFR >= 60 NORMAL TO MILDLY DECREASED</content>
<content>STAGE III GFR 30-59 MODERATELY DECREASED</content>
<content>STAGE IV GFR 15-29 SEVERELY DECREASED</content>
<content>STAGE V GFR <15 VERY LITTLE GFR LEFT</content>
<content>ESRD GFR <15 ON DRYWALL APPLICATOR</content>
<content></content> ID Date Data Source [id number] 11/10/2020 12:58:00 PM EDT [facility] ([facility]) Name Value Range Interpretation Code Description Data Yuridia rce(s) Supporting Document(s) Hemoglobin A1c/Hemoglobin.total in Blood 6.7 % [facility] ([facility]) Lab Result Notes: Pre-Diabetes 5.7 - 6.4 % Diabetes = or > 6.5% Glucose mean value [Mass/volume] in Blood Estimated fr om glycated hemoglobin 146 mg/dL 60-110 [facility] ([facility] ) ID Date Data Source [id number] 11/10/2020 12:58:00 PM EDT [facility] ([facility]) Name Value Range Interpretation Code Description Data Yuridia rce(s) Supporting Document(s) Leukocytes [#/volume] in Blood by Automated count 9.0 x10*3/UL 4.1-10 .9 [facility] ([facility]) Hemoglobin [Mass/volume] in Blood 14.4 g/dL 12.0-18.0 [facility] ([facility]) Hematocrit [Volume Fraction] of Blood by Automated count 43.1 % 3 7.0-51.0 [facility] ([facility]) Erythrocytes [#/volume] in Blood by Automated count 4.70 x10*6/UL 4.2 0-6.30 [facility] ([facility]) MCHC 33.5 g/dL 31.0-38.0 [facility] ([facility]) MCH 30.7 pg 26.0-32.0 [facility] ([facility]) MCV 91.7 fL 80.0-97.0 [facility] ([facility]) MPV 8.2 FL 7.8-11.0 [facility] ([facility]) Platelets [#/volume] in Blood by Automated count 237 x10*3/UL 140-440 [facility] ([facility]) Erythrocyte distribution width [Ratio] by Automated count 12.9 % 11.6-13.7 [facility] ([facility]) Mid % 5.7 % 1.7-9.3 [facility] ([facility]) Lymph % 20.4 % 10.0-58.5 [facility] ([facility]) Neut % 73.9 % 37.0-92.0 [facility] Lymph # 1.8 x10*3/UL 0.6-4.1 [facility] ([facility]) Neut # 6.6 x10*3/UL 2.0-7.8 [facility] ([facility]) Mid # 0.6 x10*3/UL 0.1-0.6 [facility] ([facility]) ID Date Data Source [id number] 11/10/2020 12:58:00 PM EDT [facility] ([facility]) Name Value Range Interpretation Code Description Data Yurdiia rce(s) Supporting Document(s) Hemoglobin A1c/Hemoglobin.total in Blood Laboratory test result [facility] ID Date Data Source [id number] 11/09/2020 09:09:00 AM EDT [facility] ) Name Value Range Interpretation Code Description Data Yuridia rce(s) Supporting Document(s) Surgical pathology study Laboratory test result [facility] ) FINAL DIAGNOSIS Descending and rectum polyps, polypectomy: Hyperplastic poly, fragments. 11/10/2020 - 100 CLINICAL DIAGNOSIS History colon cancer 11/09/2020 - 1450 GROSS DIAGNOSIS Received in formalin labeled "biopsy descending colon/polyps rectum" and consists of fragments of tissue, 0.2 x 0.1 x 0.1 cm. All in one. -OA 11/09/2020 - 1450 Signed MEGHAN HOLT MD 11/10/2020 1001 ID Date Data Source [id number] 11/04/2020 09:55:00 AM EDT [facility] Name Value Range Interpretation Code Description Data Yuridia rce(s) Supporting Document(s) SARS-CoV-2 (COVID-19) RNA [Presence] in Respiratory specimen by KANA with probe detection Not Detected [facility] This lab was ordered by [facility] and reported by [employer]. ID Date Data Source [id number] 09/08/2020 11:14:00 AM EDT [facility] Name Value Range Interpretation Code Description Data Yuridia rce(s) Supporting Document(s) Glucose [Mass/volume] in Serum or Plasma 113 mg/dL 74-99 [facility] ([facility]) 100-125 mg/dL PRE-DIABETES/FASTING >126 mg/dL DIABETES/FASTING Urea nitrogen [Mass/volume] in Serum or Plasma 14 mg/dL 7-18 [facility] ([facility]) Creatinine 0.8 mg/dL 0.6-1.3 [facility] ([facility] Sodium [Moles/volume] in Serum or Plasma 135 meq/L 136-145 [facility] ([facility]) Potassium [Moles/volume] in Serum or Plasma 3.9 meq/L 3.5-5.1 [facility] ([facility]) Carbon dioxide, total [Moles/volume] in Serum or Plasma 30 meq/L 21 -32 [facility] ([facility]) Chloride [Moles/volume] in Serum or Plasma 99 meq/L 98-107 [facility] ([facility]) Calcium [Mass/volume] in Serum or Plasma 9.7 mg/dL 8.5-10.1 [facility] ([facility]) Total Bilirubin 1.1 mg/dL 0.2-1.0 [facility] ([facility]) Aspartate aminotransferase [Enzymatic activity/volume] in Serum or Plasma 42 U/L 15-37 [facility] ([facility] ) Alkaline phosphatase isoenzyme [Units/volume] in Serum or Pl asma 76 mg/dL 46-116 [facility] ([facility]) Albumin [Mass/volume] in Serum or Plasma 3.3 g/dL 3.4-5.0 [facility] ([facility]) Alanine aminotransferase [Enzymatic activity/volume] in Seru m or Plasma 59 U/L 12-78 [facility] ([facility]) Proteinase 3 Ab [Units/volume] in Serum 7.7 g/dL 6.4-8.2 [facility] ([facility]) A/G Ratio 0.75 CALC 1.00-1.90 [facility] ([facility]) Glomerular filtration rate/1.73 sq M pre dicted among non-blacks [Volume Rate/Area] in Serum or Plasma by Creatinine-based formula (MDRD) Laboratory test result [facility] ([facility] Glomerular filtration rate/1.73 sq M pre dicted among blacks [Volume Rate/Area] in Serum or Plasma by Creatinine-based formula (MDRD) Laboratory test result [facility] ([facility] <content>CHRONIC KIDNEY DISEASE STAGING PER NKF</content>
<content></content>
<content>STAGE I & II GFR >= 60 NORMAL TO MILDLY DECREASED</content>
<content>STAGE III GFR 30-59 MODERATELY DECREASED</content>
<content>STAGE IV GFR 15-29 SEVERELY DECREASED</content>
<content>STAGE V GFR <15 VERY LITTLE GFR LEFT</content>
<content>ESRD GFR <15 ON DRYWALL APPLICATOR</content>
<content></content> ID Date Data Source [id number] 09/08/2020 11:14:00 AM EDT [facility] ([facility]) Name Value Range Interpretation Code Description Data Yuridia rce(s) Supporting Document(s) Hemoglobin A1c/Hemoglobin.total in Blood 6.7 % [facility] ([facility] Lab Result Notes: Pre-Diabetes 5.7 - 6.4 % Diabetes = or > 6.5% Glucose mean value [Mass/volume] in Blood Estimated fr om glycated hemoglobin 146 mg/dL 60-110 [facility] ([facility] ID Date Data Source [id number] 09/08/2020 11:14:00 AM EDT [facility] Name Value Range Interpretation Code Description Data Yuridia rce(s) Supporting Document(s) Erythrocytes [#/volume] in Blood by Automated count 4.88 x10*6/UL 4.2 0-6.30 [facility] ([facility]) Leukocytes [#/volume] in Blood by Automated count 10.3 x10*3/UL 4.1-1 0.9 [facility] ([facility]) MCV 94.7 fL 80.0-97.0 [facility]) Hemoglobin [Mass/volume] in Blood 15.9 g/dL 12.0-18.0 [facility] ([facility]) Hematocrit [Volume Fraction] of Blood by Automated count 46.2 % 3 7.0-51.0 [facility] MCHC 34.4 g/dL 31.0-38.0 [facility] ([facility]) MCH 32.6 pg 26.0-32.0 [facility] ([facility]) Platelets [#/volume] in Blood by Automated count 269 x10*3/UL 140-440 [facility] Erythrocyte distribution width [Ratio] by Automated count 12.2 % 11.6-13.7 [facility] ([facility]) MPV 8.5 FL 7.8-11.0 [facility]) Lymph % 22.1 % 10.0-58.5 [facility] ([facility]) Mid % 5.8 % 1.7-9.3 [facility] ([facility]) Neut % 72.1 % 37.0-92.0 [facility] ([facility]) Mid # 0.7 x10*3/UL 0.1-0.6 [facility] ([facility]) Lymph # 2.2 x10*3/UL 0.6-4.1 [facility] ([facility]) Neut # 7.4 x10*3/UL 2.0-7.8 [facility] ([facility]) ID Date Data Source [id number] 08/23/2020 10:19:00 AM EDT [facility] Name Value Range Interpretation Code Description Data Yuridia rce(s) Supporting Document(s) Influenza A Amplification Laboratory test result [facility] ([facility]) Negative results do not preclude influen za or RSV virus infection and should not be used as the sole basis for treatment or other patient management decisions. Influenza B Amplification Laboratory test result [facility] ([facility]) Negative results do not preclude influen za or RSV virus infection and should not be used as the sole basis for treatment or other patient management decisions. RSV Amplification Laboratory test result [facility] ([facility]) Negative results do not preclude influen za or RSV virus infection and should not be used as the sole basis for treatment or other patient management decisions. Laboratory test finding (navigational concept) Laboratory test result [facility] ([facility]) A false negative result may occur [...] pathogens. DISCLAIMER: Testing was performed using the [employer] SARS-CoV-2 test. This test was developed and its performance characteristics determined by [employer]. This test has not been FDA cleared [...] or revoked sooner. ID Date Data Source [id number] 08/23/2020 10:19:00 AM EDT [facility] Name Value Range Interpretation Code Description Data Yuridia rce(s) Supporting Document(s) SARS coronavirus 2 RNA [Presence] in Res piratory specimen by KANA with probe detection NEGATIVE [facility] This lab was ordered by [facility] a nd reported by [facility]. ID Date Data Source [id number] 08/23/2020 08:27:00 AM EDT [facility] ([facility]) Name Value Range Interpretation Code Description Data Yuridia rce(s) Supporting Document(s) Laboratory test finding (navigational concept) 0.01 ng/mL 0.00-0.08 [facility] ([facility]) ID Date Data Source [id number] 08/23/2020 08:25:00 AM EDT [facility] ([facility]) Name Value Range Interpretation Code Description Data Yuridia rce(s) Supporting Document(s) Laboratory test finding (navigational concept) 45.0 % 38.0-51.0 [facility] ([facility]) Laboratory test finding (navigational concept) 139 meq/L 136-145 [facility] ([facility]) Laboratory test finding (navigational concept) 158 mg/dL 70-105 [facility] ([facility]) Laboratory test finding (navigational concept) 4.4 meq/L 3.5-5.1 [facility] ([facility]) Laboratory test finding (navigational concept) 4.6 mg/dL 4.5-5.3 [facility] ([facility]) Laboratory test finding (navigational concept) 101 meq/L 98-109 [facility] ([facility]) Laboratory test finding (navigational concept) 31.0 MM/L 23.0-27.0 [facility] ([facility]) Laboratory test finding (navigational concept) 10 mg/dL 8-26 [facility] ([facility]) Laboratory test finding (navigational concept) 0.6 mg/dL 0.6-1.3 [facility] ([facility]) ID Date Data Source [id number] 08/23/2020 08:20:00 AM EDT [facility] ([facility]) Name Value Range Interpretation Code Description Data Yuridia rce(s) Supporting Document(s) Magnesium [Moles/volume] in Serum or Plasma 1.6 mg/dL 1.8-2.4 [facility] Natriuretic peptide.B prohormone N-Terminal [Mass/volu me] in Serum or Plasma 285 pg/mL [facility] Thyrotropin [Units/volume] in Serum or Plasma by Detec tion limit <= 0.05 mIU/L 0.774 uIU/ML 0.358-3.740 [facility] ID Date Data Source [id number] 08/23/2020 08:20:00 AM EDT [facility] Name Value Range Interpretation Code Description Data Yuridia rce(s) Supporting Document(s) Ast/Sgot 42 U/L 7-37 [facility] Alt/SGPT 33 U/L 12-78 [facility]) Alkaline Phosphatase 90 U/L 45-117 [facility] ([facility]) Bilirubin,Total 1.3 mg/dL 0.2-1.0 [facility] ([facility]) Bilirubin,Direct 0.6 mg/dL 0.0-0.2 [facility] ([facility]) Total Protein 7.7 GM/DL 6.4-8.2 [facility] ([facility]) Albumin 3.1 GM/DL 3.2-5.2 [facility] Albumin/Globulin Ratio 0.7 [facility] ([facility]) ID Date Data Source [id number] 08/23/2020 08:20:00 AM EDT [facility] Name Value Range Interpretation Code Description Data Yuridia rce(s) Supporting Document(s) Prothrombin Time 16.2 s 12.5-14.3 [facility] ([facility]) Inr 1.27 [facility] THERAPUTIC HUMAN INR VALUES INDICATIONS NORMAL RANGES PROPHYLAXIS/TREATMENT OF: VENOUS THROMBOSIS 2.0-3.0 PULMONARY EMBOLISM 2.0-3.0 PREVENTION OF SYSTEMIC EMBOLISM FROM: TISSUE HEART VALVES 2.0-3.0 ACUTE MYOCARDIAL INFARCTION 2.0-3.0 VALVULAR HEART DISEASE 2.0-3.0 ATRIAL FIBRILLATION 2.0-3.0 MECHANICAL VALVES(HIGH RISK) 2.5-3.5 RECURRENT MYOCARDIAL INFARCTION 2.5-3.5 ID Date Data Source [id number] 08/23/2020 08:20:00 AM EDT [facility] ([facility]) Name Value Range Interpretation Code Description Data Yuridia rce(s) Supporting Document(s) White Blood Count 7.8 10 4.0-10.0 [facility] ([facility]) Hematocrit 42.5 % 42.0-52.0 [facility] Hemoglobin 14.3 g/dL 13.5-17.5 [facility] Red Blood Count 4.28 10 4.30-6.10 [facility] ([facility]) Mean Corpuscular Volume 99.3 fl 80.0-96.0 [facility] ([facility]) Mean Corpuscular Hemoglobin 33.4 pg 27.0-33.0 [facility] ([facility]) Red Cell Distribution Width 12.3 % 11.5-14.5 ME D[facility] ([facility]) Mean Corpuscular HGB Conc 33.6 g/dL 32.0-36.5 MEDE NT ([facility]) Platelet Count, Automated 164 10 150-450 [facility] NT ([facility]) Lymph % 23.1 % 24.0-44.0 [facility]) Neutrophils % 62.1 % 36.0-66.0 [facility] ([facility]) Weld % 10.3 % 2.0-8.0 [facility]) Baso % 1.4 % 0.0-1.0 [facility]) Eos % 2.6 % 0.0-3.0 [facility]) Immature Granulocyte % 0.5 % 0-3.0 [facility] ([facility]) Neutrophils # 4.9 10 1.5-8.5 [facility] ([facility]) Nucleated Red Blood Cell % 0.0 % 0-0 MED ENT ([facility]) Lymph # 1.8 10 1.5-5.0 [facility] Eos # 0.2 10 0.0-0.5 [facility]) Baso # 0.1 10 0.0-0.2 [facility]) Weld # 0.8 10 0.0-0.8 [facility] ID Date Data Source [id number] 07/04/2020 12:00:00 AM EST [facility] Name Value Range Interpretation Code Description Data Yuridia rce(s) Supporting Document(s) SARS-CoV2 Rapid Antigen Negative [facility] This lab was ordered by [facility] and reported by [facility]. Procedure Social History Code Duration Value Status Description Data Source(s ) Smoking 03/23/2021 12:00:00 AM EDT Patient has never smoked co mpleted Patient has never smoked [facility] ([facility]) Alcohol intake 03/03/2021 12:00:00 AM EDT Ex-drinker (finding) comp leted Ex- drinker (finding) [facility] Alcohol intake 12/21/2020 12:00:00 AM EDT Ex-drinker (finding) comp leted Ex- drinker (finding) [facility] Alcohol intake 10/28/2020 12:00:00 AM EDT Current drinker of al cohol (finding) completed Current drinker of alcohol (finding) [facility] Vital Signs ID Date Data Source [id number] Name Value Range Interpretation Code Description Data Source(s) Body temperature 97.2 [degF] 97.2 [degF] FREDA ([facility], ) Systolic blood pressure 100 mm[Hg] 100 mm[Hg] DENISSE ([facility]) Diastolic blood pressure 72 mm[Hg] 72 mm[Hg] [facility] Heart rate 82 /min 82 /min [facility]) Body height 70 [in_i] 70 [in_i] [facility] ([facility]) 5'10" Body weight 266.00 [lb_av] 266.00 [lb_av] MEDEN T ([facility]) Body mass index (BMI) [Ratio] 38.2 kg/m2 38.2 k g/m2 [facility] ([facility]) Body mass index (BMI) [Ratio] 39.68 kg/m2 39.68 kg/m2 [facility] Systolic blood pressure 110 mm[Hg] 110 mm[Hg] [facility] Diastolic blood pressure 68 mm[Hg] 68 mm[Hg] [facility] Heart rate 71 /min 71 /min [facility] Body height 172.7 cm 172.7 cm [facility] Body weight 118.389 kg 118.389 kg [facility] Oxygen saturation in Arterial blood by Pulse oximetry 95 % 95 % [facility] Systolic blood pressure 102 mm[Hg] 102 mm[Hg] [facility] Diastolic blood pressure 82 mm[Hg] 82 mm[Hg] FREDA ([facility]) Heart rate 58 /min 58 /min [facility] ([facility]) Body height 70 [in_i] 70 [in_i] [facility] ([facility]) 5'10" Body weight 262.00 [lb_av] 262.00 [lb_av] MEDEN T ([facility]) Oxygen saturation in Arterial blood by Pulse oximetry 99 % 99 % [facility] ([facility]) RM Air Body mass index (BMI) [Ratio] 37.6 kg/m2 37.6 k g/m2 [facility] ([facility]) Body weight 266.00 [lb_av] 266.00 [lb_av] MEDEN T ([facility]) Body height 70 [in_i] 70 [in_i] [facility] ([facility]) 5'10" Oxygen saturation in Arterial blood by Pulse oximetry 99 % 99 % [facility] RM Air Body mass index (BMI) [Ratio] 38.2 kg/m2 38.2 k g/m2 [facility] ([facility]) Systolic blood pressure 102 mm[Hg] 102 mm[Hg] [facility] ([facility]) Diastolic blood pressure 80 mm[Hg] 80 mm[Hg] [facility] ([facility]) Heart rate 81 /min 81 /min [facility] ([facility]) Body mass index (BMI) [Ratio] 35.7 kg/m2 35.7 k g/m2 [facility] Diastolic blood pressure 94 mm[Hg] 94 mm[Hg] [facility] ([facility]) Systolic blood pressure 118 mm[Hg] 118 mm[Hg] [facility] Heart rate 73 /min 73 /min [facility] ([facility]) Body height 70 [in_i] 70 [in_i] [facility] ([facility]) 5'10" Body weight 249.00 [lb_av] 249.00 [lb_av] MEDEN T ([facility]) Oxygen saturation in Arterial blood by Pulse oximetry 98 % 98 % [facility] Body temperature 97.9 [degF] 97.9 [degF] [facility] ([facility], ) Systolic blood pressure 100 mm[Hg] 100 mm[Hg] [facility] Diastolic blood pressure 70 mm[Hg] 70 mm[Hg] [facility] Heart rate 76 /min 76 /min [facility] Body height 172.7 cm 172.7 cm [facility] Body weight 109.861 kg 109.861 kg [facility] Body mass index (BMI) [Ratio] 36.83 kg/m2 36.83 kg/m2 [facility] Oxygen saturation in Arterial blood by Pulse oximetry 96 % 96 % [facility] Body temperature 98.7 [degF] 98.7 [degF] [facility] ([facility], ) Diastolic blood pressure 62 mm[Hg] 62 mm[Hg] [facility] Systolic blood pressure 118 mm[Hg] 118 mm[Hg] M EDENT ([facility]) Heart rate 70 /min 70 /min [facility] ([facility]) Body height 70 [in_i] 70 [in_i] [facility] ([facility]) 5'10" Body weight 240.00 [lb_av] 240.00 [lb_av] MEDEN T ([facility]) Body mass index (BMI) [Ratio] 34.4 kg/m2 34.4 k g/m2 [facility] ([facility]) Systolic blood pressure 110 mm[Hg] 110 mm[Hg] [facility] Diastolic blood pressure 80 mm[Hg] 80 mm[Hg] [facility] Heart rate 101 /min 101 /min [facility] Respiratory rate 18 /min 18 /min [facility] Body weight 111.585 kg 111.585 kg [facility] Body mass index (BMI) [Ratio] 37.40 kg/m2 37.40 kg/m2 [facility] Oxygen saturation in Arterial blood by Pulse oximetry 97 % 97 % [facility] Oxygen saturation in Arterial blood by Pulse oximetry 97 % 97 % [facility] ([facility]) Systolic blood pressure 135 mm[Hg] 135 mm[Hg] M EDENT ([facility]) Respiratory rate 18 /min 18 /min [facility] ( [facility]) Diastolic blood pressure 93 mm[Hg] 93 mm[Hg] [facility] ([facility]) Heart rate 91 /min 91 /min [facility] ([facility]) Body weight 113.400 kg 113.400 kg [facility] ([facility]) Oxygen saturation in Arterial blood by Pulse oximetry 97 % 97 % [facility] ([facility]) Callery body weight 166 [lb_av] 166 [lb_av] MEDEN T ([facility]) Body temperature 97.2 [degF] 97.2 [degF] [facility] ([facility]) Body height 70 [in_i] 70 [in_i] [facility] ([facility]) 5'10" Body weight 250.00 [lb_av] 250.00 [lb_av] MEDEN T ([facility]) Body mass index (BMI) [Ratio] 35.9 kg/m2 35.9 k g/m2 [facility] ([facility]) [place] body weight 166 [lb_av] 166 [lb_av] MEDEN T ([facility]) Body weight 113.400 kg 113.400 kg [facility] ([facility]) Body surface area Derived from formula 2.29 m2 2.29 m2 [facility] ([facility]) Respiratory rate 18 /min 18 /min [facility] ( [facility]) Body temperature 97.2 [degF] 97.2 [degF] [facility] ([facility]) Body height 70 [in_i] 70 [in_i] [facility] ([facility]) 5'10" Body weight 250.00 [lb_av] 250.00 [lb_av] MEDEN T ([facility]) Body mass index (BMI) [Ratio] 35.9 kg/m2 35.9 k g/m2 [facility] ([facility]) Body surface area Derived from formula 2.29 m2 2.29 m2 [facility] ([facility]) Systolic blood pressure 113 mm[Hg] 113 mm[Hg] M EDENT ([facility]) Body height 70 [in_i] 70 [in_i] [facility] ([facility]) 5'10" Respiratory rate 17 /min 17 /min [facility] ( [facility]) Body weight 250.75 [lb_av] 250.75 [lb_av] MEDEN T ([facility]) Body mass index (BMI) [Ratio] 36.0 kg/m2 36.0 k g/m2 [facility] ([facility]) Diastolic blood pressure 73 mm[Hg] 73 mm[Hg] [facility] ([facility]) Heart rate 84 /min 84 /min [facility] ([facility]) Oxygen saturation in Arterial blood by Pulse oximetry 100 % 100 % [facility] ([facility]) Body temperature 95.4 [degF] 95.4 [degF] [facility] ([facility]) Callery body weight 166 [lb_av] 166 [lb_av] MEDEN T ([facility]) Body weight 113.740 kg 113.740 kg [facility] ([facility]) Body surface area Derived from formula 2.30 m2 2.30 m2 [facility] ([facility]) Body surface area Derived from formula 2.29 m2 2.29 m2 [facility] ([facility]) Body mass index (BMI) [Ratio] 35.7 kg/m2 35.7 k g/m2 [facility] ([facility]) Callery body weight 166 [lb_av] 166 [lb_av] MEDEN T ([facility]) Systolic blood pressure 122 mm[Hg] 122 mm[Hg] M EDENT ([facility]) Diastolic blood pressure 86 mm[Hg] 86 mm[Hg] [facility] ([facility]) Body height 70 [in_i] 70 [in_i] [facility] ([facility]) " Body weight 248.50 [lb_av] 248.50 [lb_av] MED[facility] T ([facility], ) Body weight 112.720 [facility] Systolic blood pressure 118 mm[Hg] 118 mm[Hg] M EDENT ([facility]) Diastolic blood pressure 62 mm[Hg] 62 mm[Hg] [facility] ([facility]) Body weight 250.00 [lb_av] 250.00 [lb_av] MEDEN T ([facility]) Body mass index (BMI) [Ratio] 35.9 kg/m2 35.9 k g/m2 [facility] ([facility]) Heart rate 68 /min 68 /min [facility]) Body height 70 [in_i] 70 [in_i] [facility] ([facility] " Patient Treatment Plan of Care Planned Activity Planned Date Details Description Data Source (s) Lactulose 667 MG/ML Oral Solution 03/02/2021 12:00:00 AM EDT [facility] Furosemide 40 MG Oral Tablet 02/28/2021 12:00:00 AM EDT [facility] Metoprolol Tartrate 25 MG Oral Tablet 02/24/2021 12:00:00 AM EDT [facility] atorvastatin 20 MG Oral Tablet 02/24/2021 12:00:00 AM EDT [facility] apixaban 5 MG Oral Tablet 01/31/2021 12:00:00 AM EDT [facility] Cyclobenzaprine hydrochloride 10 MG Oral Tablet 01/02/2021 12:00:00 AM EDT [facility] Lisinopril 2.5 MG Oral Tablet 12/21/2020 12:00:00 AM EDT [facility] apixaban 5 MG Oral Tablet 12/15/2020 12:00:00 AM EDT [facility] Metoprolol Tartrate 50 MG Oral Tablet 10/28/2020 12:00:00 AM EDT [facility] Lisinopril 10 MG Oral Tablet 10/28/2020 12:00:00 AM EDT [facility] ropinirole 4 MG Oral Tablet 08/30/2020 12:00:00 AM EDT [facility] Metformin hydrochloride 1000 MG Oral Tablet 08/30/2020 12:00:00 AM EDT [facility] Magnesium Oxide 500 MG Oral Tablet 08/30/2020 12:00:00 AM EDT [facility] atorvastatin 40 MG Oral Tablet 08/30/2020 12:00:00 AM EDT [facility] Pravastatin Sodium 10 MG Oral Tablet 01/13/2020 12:00:00 AM EDT [facility] Metoprolol Tartrate 25 MG Oral Tablet 12/16/2019 12:00:00 AM EDT [facility] Hydrochlorothiazide 25 MG Oral Tablet 11/12/2019 12:00:00 AM EDT [facility] Lisinopril 10 MG Oral Tablet 11/12/2019 12:00:00 AM EDT [facility] Metformin hydrochloride 500 MG Oral Tablet 10/24/2019 12:00:00 AM E DT [facility]
[2021-04-03 20:04] LABS: ABG BASE EXCESS -1.1 (-2.0-2.0); ABG HCO3 23.1 MEQ/L (22.0-26.0); ABG PARTIAL PRESSURE CO2 36.8 mmHg (35.0-45.0); ABG PARTIAL PRESSURE O2 83.8 mmHg (75.0-100.0); ABG STANDARD HCO3 23.5 MEQ/L (22.0-26.0); ABG TOTAL CO2 24.2 MEQ/L (22.0-29.0); ABG pH (ARTERIAL) 7.415 UNITS (7.350-7.450)
[2021-04-03 20:14] LABS: BASO # 0.1 10^3/uL (0.0-0.2); EOS # 0.1 10^3/uL (0.0-0.5); EOS % 2.1 % (0.0-3.0); HEMATOCRIT 40.2 % (42.0-52.0); HEMOGLOBIN 12.7 g/dl (13.5-17.5); LYMPH # 0.7 10^3/uL (1.5-5.0); LYMPH % 10.5 % (24.0-44.0); MEAN CORPUSCULAR HEMOGLOBIN 29.7 pg (27.0-33.0); MEAN CORPUSCULAR HGB CONC 31.6 g/dl (32.0-36.5); MEAN CORPUSCULAR VOLUME 94.1 fl (80.0-96.0); MONO # 1.1 10^3/uL (0.0-0.8); MONO % 18.2 % (2.0-8.0); NEUTROPHILS # 4.3 10^3/uL (1.5-8.5); NEUTROPHILS % 67.7 % (36.0-66.0); PLATELET COUNT, AUTOMATED 147 10^3/uL (150-450); RED BLOOD COUNT 4.27 10^6/uL (4.30-6.10); WHITE BLOOD COUNT 6.3 10^3/uL (4.0-10.0)
[2021-04-03 20:38] LABS: ALBUMIN 3.4 GM/DL (3.2-5.2); ALT/SGPT 37 U/L (12-78); BILIRUBIN,DIRECT 0.4 MG/DL (0.0-0.2); BLOOD UREA NITROGEN 17 MG/DL (7-18); CALCIUM LEVEL 9.2 MG/DL (8.5-10.1); CARBON DIOXIDE LEVEL 27 MEQ/L (21-32); CHLORIDE LEVEL 101 MEQ/L (98-107); CK-MB VALUE MASS 1.9 NG/ML (<3.6); CPK CREATINE PHOSPHOKINASE 85 U/L (39-308); CREATININE FOR GFR 0.83 MG/DL (0.70-1.30); ETHYL ALCOHOL (ETHANOL) < 0.003 % (0.000-0.010); GLOMERULAR FILTRATION RATE > 60.0 (>56); GLUCOSE, FASTING 92 MG/DL (70-100); MB/CK RELATIVE INDEX 2.24 (< OR =4); NT-PRO BNP 711 PG/ML (<125); POTASSIUM SERUM 4.1 MEQ/L (3.5-5.1); SODIUM LEVEL 136 MEQ/L (136-145); TOTAL PROTEIN 7.7 GM/DL (6.4-8.2); TROPONIN I < 0.02 NG/ML (< 0.10)
--- NOTE | 2021-04-03 20:57 | REPVR ---
PROCEDURE INFORMATION: Exam: XR Chest Exam date and time: 04/03/2021 8:24 PM Age: 60 years old Clinical indication: Cough and dyspnea; Additional info: Dyspnea/cough TECHNIQUE: Imaging protocol: XR of the chest. Views: 1 view. COMPARISON: CR Chest, 2 view PA, Lat 03/17/2021 8:03 AM FINDINGS: Tubes, catheters and devices: Single lead cardiac pacer demonstrated with intact pacer wire. Lungs: Unremarkable. No consolidation. Pleural spaces: Unremarkable. No pleural effusion. No pneumothorax. Heart/Mediastinum: Unremarkable. No cardiomegaly. Bones/joints: Unremarkable. IMPRESSION: No acute findings. Electronically signed by: Bull Riley On 04/03/2021 20:56:38 PM
--- OUTSIDE RECORDS SUMMARY | 2021-04-03 20:57 | CCD ---
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 Name Role Phone Isra Goldman MD Unavailable Unavailable Isra Goldman MD Unavailable Unavailable Isra Glodman MD Unavailable Unavailable Isra Goldman MD Unavailable [...] Unavailable Unavailable Isra Goldman MD Unavailable Unavailable Isar Goldman MD Unavailable Unavailable Isra Goldman MD [...] Unavailable Unavailable Isra Goldman MD Unavailable Unavailable sIra Goldman MD Unavailable Unavailable Isra Goldman MD [...] Unavailable Unavailable EUGENEMARY GRACE MD Unavailable Unavailable EUGENEMAYR GRACE MD Unavailable Unavailable EUGENE, MARY GRACE [...] MD Unavailable Unavailable MollisonCheco MD Unavailable Unavailable Helotes, Christopher DO Unavailable Unavailable Lisseth, Christopher DO Unavailable Unavailable Helotes, Christopher DO Unavailable Unavailable Helotes, Christopher DO Unavailable Unavailable Helotes, Christopher DO Unavailable Unavailable Lisseth, Christopher DO [...] is protected by Article 27-F of the [facility] Public Health law. If you continue you may have access to information: Regarding HIV / AIDS; Provided by facilities licensed or operated by the [facility] Office of Mental Health; or Provided by the [facility] Office for People With Developmental Disabilities. If such information is present, then the following [facility] mandated warning applies: This information [...] law may result in a fine or longterm sentence or both. A general authorization for the release of medical or other information is NOT sufficient authorization for further disc losure. Family History Family Member Name Family Member Gender Family Member Status Date o f Status Description Data Source(s) Unknown Male Problem [facility] ([facility]) Unknown Male Problem [facility] ([facility]) Unknown Female Problem [facility] ([facility]) Encounters Encounter Providers Location Date Indications Data Source(s ) Office Visit Attender: Marek Wagoner/Chip/Varghese/Lisa baltazar 03/27/2021 02:30:00 PM EDT [facility] Outpatient Attender: Blanche POWER Main Office 03/23/2021 12:45:00 PM EDT [facility] ([facility]) Outpatient Attender: Milton Ocampo 03/08/2021 11:00:00 AM EDT [facility] ([facility] ) Outpatient Attender: MARY GRACE KEENANSJDorisELIUD 01:16:01 PM EDT - 03/03/2021 02:05:15 PM EDT [facility] Outpatient Attender: Milton Arboleda 03/03/2021 11:40:00 AM EDT [facility] ([facility] ) Outpatient Attender: Shaileshluna Arboleda 02/28/2021 10:40:00 AM EDT [facility] ([facility] ) Office Visit Attender: Marek Wagoner/Chip/Varghese/Re indl 02/21/2021 09:15:00 AM EDT [facility] ([facility]) Outpatient Attender: Milton Montanez DO Lisseth Dominguezkaylabasil 01/31/2021 01:40:00 PM EDT [facility] ([facility] ) Outpatient Attender: Marek Wagoner/Chip/Varghese/Re indl 01/17/2021 02:00:00 PM EDT [facility] ([facility] Outpatient Attender: MARY GRACE LYMAN-SJP.ELIUD 12:00:00 AM EDT - 12/21/2020 10:26:08 AM EDT [facility] Outpatient Attender: Marek Wagoner/Chip/Varghese/Re indl 12/20/2020 09:15:00 AM EDT [facility] ([facility] Outpatient Attender: Marek Wagoner/Chip/Varghese/Re indl 12/15/2020 10:45:00 AM EDT [facility] ([facility] Outpatient Attender: Nader Hurt 11/10 11:30:00 AM EDT [facility] ([facility] ) Outpatient Attender: MARY GRACE KEENANSJP.ELIUD 10/28/2020 12:00:00 AM EDT [facility] Outpatient Attender: Marek Wagoner/Chip/Varghese/Re indl 10/07/2020 02:15:00 PM EDT [facility] Outpatient Attender: Marek Wagoner/Chip/Varghese/Re indl 09/22/2020 09:00:00 AM EDT [facility] ([facility] ) Outpatient Attender: Nader Hurt 09/08 10:00:00 AM EDT [facility] ([facility] ) Immunizations Vaccine Date Status Description Data Source(s) COVID-19 VACCINE Moderna 10/07/2020 12:00:00 AM EDT completed [facility] Vaccine Series Complete: YESThis Data wa s Submitted to [facility] [employer]. COVID-19 VACCINE Moderna 09/09/2020 12:00:00 AM EDT completed [facility] Vaccine Series Complete: NOThis Data was Submitted to [facility] [employer]. Medications Medication Brand Name Start Date Product Form Dose Route Admi nistrative Instructions Pharmacy Instructions Status Indications Reaction Description Data Source(s) ferrous sulfate 325 MG Oral Tablet Ferrous Sulfate 03/08/2021 12:00 :00 AM EDT ORAL active [facility] ([facility]) Spironolactone 25 MG Oral Tablet Spironolactone 03/08/2021 12:00:00 A M EDT ORAL active [facility] ([facility]) Lactulose 667 MG/ML Oral Solution Lactulose Encephalop athy 10 GM/15ML SOLN Lactulose Encephalopathy 10 GM/15ML SOLN 03/02/2021 12:00:00 AM EDT active [facility] Lactulose 667 MG/ML Oral Solution Lactulose 03/01/2021 12:00:00 AM EDT ORAL active [facility] ([facility]) Furosemide 40 MG Oral Tablet furosemide (LASIX) 40 MG tablet furosemide (LASIX) 40 MG tablet 02/28/2021 12:00:00 AM EDT active [facility] Furosemide 40 MG Oral Tablet Furosemide 02/28/2021 12:00:00 AM EDT active [facility] ([facility]) atorvastatin 20 MG Oral Tablet atorvastatin (LIPITOR) 20 MG tablet atorvastatin (LIPITOR) 20 MG tablet 02/24/2021 12:00:00 AM EDT active [facility] Metoprolol Tartrate 25 MG Oral Tablet me toprolol tartrate (LOPRESSOR) 25 MG tablet metoprolol tartrate (LOPRESSOR) 25 MG tablet 02/24/2021 12:0 0:00 AM EDT 25 mg Oral active Take 25 mg by mo uth daily [facility] Acetaminophen 325 MG / Oxycodone Hydrochloride 5 MG Or al Tablet [Percocet] Percocet 02/08/2021 12:00:00 AM EDT ORAL completed MED[facility] ([facility], ) Metoprolol Tartrate 25 MG Oral Tablet Metoprolol Tartrate 12:00:00 AM EDT ORAL active [facility]) apixaban 5 MG Oral Tablet Apixaban (ELIQUIS) 5 MG TABS tablet Apixaban (ELIQUIS) 5 MG TABS tablet 01/31/2021 12:00:00 AM EDT 5 mg Oral active Paroxysmal atrial fibrillation Take 1 tablet (5 mg total) by mouth 2 (t wo) times a day [facility] Paroxysmal atrial fibrillation Methylprednisolone 4 MG Oral Tablet Methylprednisolone 12/25 12:00:00 AM EDT active MEDENT ([facility], ) Cyclobenzaprine hydrochloride 10 MG Oral Tablet cyclobenzaprine (FLEXERIL) 10 MG tablet cyclobenzaprine (FLEXERIL) 10 MG tablet 01/02/2021 12:00:00 AM EDT active [facility] Cyclobenzaprine hydrochloride 10 MG Oral Tablet Cyclobenzapr ine HCL 01/02/2021 12:00:00 AM EDT ORAL active M EDENT ([facility], ) Lisinopril 2.5 MG Oral Tablet lisinopril (PRINIVIL,ZES TRIL) 2.5 MG tablet lisinopril (PRINIVIL,ZESTRIL) 2.5 MG tablet 12/21/2020 12:00:00 AM EDT 2.5 mg Oral aborted Type 2 diabetes mellitus without complication, without long- term current use of insulinHypertension, unspecified type Take 1 tablet (2.5 mg total) by mouth daily [facility] Type 2 diabetes mellitus without complic ation, without long-term current use of insulin Hypertension, unspecified type apixaban 5 MG Oral Tablet Apixaban (ELIQUIS) 5 MG TABS tablet Apixaban (ELIQUIS) 5 MG TABS tablet 12/15/2020 12:00:00 AM EDT 5 mg Oral active Take 1 tablet (5 mg total) by mouth 2 (two) times a day [facility] Suprep Bowel Prep Kit Suprep Bowel [...] mouth 2 ( two) times a day [facility] Hypertension, unspecified type Paroxysmal atrial fibrillation Lisinopril 10 MG Oral Tablet lisinopril (PRINIVIL,ZEST RIL) 10 MG tablet lisinopril (PRINIVIL,ZESTRIL) 10 MG tablet 10/28/2020 12:00:00 AM EDT 5 mg Oral aborted Take 0.5 tablets (5 mg total) by mouth daily [facility] atorvastatin 20 MG Oral Tablet Atorvastatin Calcium 09/01/2020 1 2:00:00 AM EDT ORAL active [facility] ( [facility]) MAGNESIUM GLUCONATE 500 MG Oral Tablet Magnesium Gluconate 0 09/01/2020 12:00:00 AM EDT active [facility] Metformin hydrochloride 1000 MG Oral Tablet Metformin HCL 09/01/2020 12:00:00 AM EDT ORAL active [facility]) ropinirole 4 MG Oral Tablet Ropinirole HCL 09/01/2020 12:00:00 AM EDT ORAL active [facility] ([facility]) atorvastatin 40 MG Oral Tablet atorvastatin (LIPITOR) 40 MG tablet atorvastatin (LIPITOR) 40 MG tablet 08/30/2020 12:00:00 AM EDT 40 mg Oral active Take 40 mg by mouth daily [facility] Magnesium Oxide 500 MG Oral Tablet Magnesium Oxide 500 MG TABS Magnesium Oxide 500 MG TABS 08/30/2020 12:00:00 AM EDT 1 {tbl} Oral activ e Take 1 tablet by mouth daily [facility] Metformin hydrochloride 1000 MG Oral Tab let metFORMIN (GLUCOPHAGE) 1000 MG tablet metFORMIN (GLUCOPHAGE) 1000 MG tablet 08/30/2020 12:00:00 AM EDT 1000 mg Oral active Take 1,000 mg by mouth 2 (two) times a day with meals [facility] ropinirole 4 MG Oral Tablet rOPINIRole (REQUIP) 4 MG t ablet rOPINIRole (REQUIP) 4 MG tablet 08/30/2020 12:00:00 AM EDT 4 mg Oral active Take 4 mg by mouth nightly [facility] Pravastatin Sodium 10 MG Oral Tablet pravastatin (PRAV ACHOL) 10 MG tablet pravastatin (PRAVACHOL) 10 MG tablet 01/13/2020 12:00:00 AM EDT 10 mg Oral aborted Hypertension, unspecified ty peParoxysmal atrial fibrillationHyperlipidemia, unspecified hyperlipidemia type Take 1 tablet (10 mg total) by mouth nightly [facility] Hypertension, unspecified type Paroxysmal atrial fibrillation Hyperlipidemia, unspecified hyperlipidem ia type Metoprolol Tartrate 25 MG Oral Tablet me toprolol tartrate (LOPRESSOR) 25 MG tablet metoprolol tartrate (LOPRESSOR) 25 MG tablet 12/16/2019 12:0 0:00 AM EDT 25 mg Oral aborted Take 1 tablet (2 5 mg total) by mouth 2 (two) times a day [facility] Lisinopril 10 MG Oral Tablet lisinopril (PRINIVIL,ZEST RIL) 10 MG tablet lisinopril (PRINIVIL,ZESTRIL) 10 MG tablet 11/12/2019 12:00:00 AM EDT 10 mg Oral aborted Take 10 mg by mouth daily [facility] Hydrochlorothiazide 25 MG Oral Tablet hy drochlorothiazide (HYDRODIURIL) 25 MG tablet hydrochlorothiazide (HYDRODIURIL) 25 MG tablet 020 12:00:00 AM EDT 12.5 mg Oral aborted Take 12.5 mg by mouth daily [facility] Metformin hydrochloride 500 MG Oral Tablet metFORMIN ( GLUCOPHAGE) 500 MG tablet metFORMIN (GLUCOPHAGE) 500 MG tablet 10/24/2019 12:00:00 AM EDT 500 m g Oral aborted Take 500 mg by mouth 4 (four ) times a day [facility] Insurance Providers Payer name Policy type / Coverage type Policy ID Covered green party ID Covered green party's relationship to lopez Policy [place] Plan Information [place] [employer] [place] [id number] Family Dependent U [id number] [place] [facility] [id number] Family Dependent U [id number] [place] [facility] [id number] Family Dependent U [id number] [place] [facility] [id number] Family Dependent U [id number] [place] [employer] [id number] Family Dependent U [id number] [place] [employer] [id number] Family Dependent U [id number] [place] [employer] [id number] Family Dependent U [id number] BS [place] [facility] Part B [id number] Family Dependent U [id number] BS [place] [facility] Part B [id number] Family Dependent U [id number] MVP (pr) Commercial [id number] Self [id number] Stella (WC) Workers Compensation [id number] Self [id number] [facility] [id number] SP [id number] [facility] [id number] SP [id number] [employer] Commercial [id number] Self [employer] Commercial [id number] Self [id number] [employer] [place] [employer] Commercial [id number] Self [id number] [employer] [place] [employer] Commercial [id number] Self [employer]BS [id number] Deborah PYN [id number] [employer]BS [id number] [employer] B [id number] S PYN [id number] BS [place] [employer] [id number] Self P [id number] BS [place] [employer] [id number] Self P [id number] BS [place] Commercial [id number] Self P [id number] [employer] B [id number] S PYN [id number] [facility] O [id number] S [id number] [place] PPO 302/307 [id number] SP [id number] [employer] Health Maintenance Organization (HMO) [id number] Self [id number] BCBS OF [place] 306/806 [id number] SP [id number] BS [place] Commercial [id number] Self P [id number] BCBS [place] PPO 302/307 [id number] SP [id number] BCBS [place] PPO 302/307 [id number] SP [id number] BCBS OF [place] 306/806 [id number] SP [id number] Problems, Conditions, and Diagnoses Code Display Name Description Problem Type Effective Dates Data Source(s) E11.9 Type 2 diabetes mellitus without complic ations Type 2 diabetes mellitus without complic Diagnosis 12/21/2020 09:25:05 AM EDT [facility] G47.33 Obstructive sleep apnea (adult) (pediatr ic) Obstructive sleep apnea (adult) (pediatr Diagnosis 12/21/2020 09:25:05 AM EDT [facility] I10 Essential (primary) hypertension Essential (primary) h ypertension Diagnosis 12/21/2020 09:25:05 AM EDT [facility] K21.9 Gastro-esophageal reflux disease without esophagitis Gastro-esophageal reflux disease without Diagnosis 12/21/2020 09:25:05 AM EDT [facility] F32.9 Major depressive disorder, single episod e, unspecified Major depressive disorder, single episod Diagnosis 12/21/2020 09:25:05 AM EDT [facility] F41.9 Anxiety disorder, unspecified Anxiety disorder, unspec ified Diagnosis 12/21/2020 09:25:05 AM EDT [facility] E78.5 Hyperlipidemia, unspecified Hyperlipidemia, unspecifie d Diagnosis 12/21/2020 09:25:05 AM EDT [facility] I48.0 Paroxysmal atrial fibrillation Paroxysmal atrial fibri llation Diagnosis 12/21/2020 09:25:05 AM EDT [facility] K74.60 Cirrhosis Cirrhosis [id number] 03/03/2021 12:00:00 AM ED T [facility] Surgeries/Procedures Procedure Description Date Indications Data Source(s) OFFICE OUTPATIENT VISIT 5 MINUTES 03/23/2021 12:00:00 AM EDT [facility] ([facility]) OFFICE OUTPATIENT VISIT 25 MINUTES 03/08/2021 12:00:00 AM EDT MEDGIL ([facility]) OFFICE OUTPATIENT VISIT 25 MINUTES 03/03/2021 12:00:00 AM EDT [facility] ([facility]) OFFICE OUTPATIENT VISIT 25 MINUTES 02/28/2021 12:00:00 AM EDT [facility] TROPONIN QUANTITATIVE <td>TROPONIN I</td><td>Routine</td><td>02/23/2021</td><td></td><td> </td> 02/23/2021 12:00:00 AM EDT [facility] BLOOD COUNT COMPLETE AUTO&AUTO DIFRNTL WBC COUNT <td>C BC AND DIFFERENTIAL</td><td>Routine</td><td>02/23/2021</td><td></td><td> </td> 02/23/2021 12:00:00 AM EDT [facility] THYROID STIMULATING HORMONE TSH <td>TSH</td><td>Routine</td><td>02/23/2021</td><td></td><td> </td> 02/23/2021 12:00:00 AM EDT [facility] HEPATIC FUNCTION PANEL <td>HEPATIC FUNCTION PANEL</td><td>Routine</td><td>02/23/2021</td><td></td><td> </td> 02/23/2021 12:00:00 AM EDT [facility] BASIC METABOLIC PANEL CALCIUM TOTAL <td>BASIC METABOLI C PANEL</td><td>Routine</td><td>02/23/2021</td><td></td><td> </td> 02/23/2021 12:00:00 AM [facility] ARTHROSCOPY SHOULDER DISTAL CLAVICULECTOMY 02/08/2021 12:00:00 AM EDCleo BARBA ([facility], ) SHOULDER SCOPE BONE SHAVING 02/08/2021 12:00:00 AM EDCleo BARBA ([facility], ) ARTHROSCOPY SHOULDER ROTATOR CUFF REPAIR 02/08/2021 12 :00:00 AM SHAYAN BARBA ([facility], ) ECG ROUTINE ECG W/LEAST 12 LDS W/I&R 01/31/2021 12:00: 00 AM EDCleo BARBA ([facility]) OFFICE OUTPATIENT VISIT 25 MINUTES 01/31/2021 12:00:00 AM EDCleo BARBA ([facility]) OFFICE OUTPATIENT VISIT 25 MINUTES 01/17/2021 12:00:00 AM EDCleo BARBA ([facility], ) OFFICE OUTPATIENT VISIT 15 MINUTES 12/20/2020 12:00:00 AM EDCleo BARBA ([facility], ) OFFICE OUTPATIENT VISIT 25 MINUTES 12/20/2020 12:00:00 AM EDCleo MEDGIL ([facility], ) Inject/Drain Arthrocentesis Major Joint/Bursa/Ganglion Cyst 12/15/2020 12:00:00 AM EDCleo BARBA ([facility]) OFFICE OUTPATIENT VISIT 25 MINUTES 12/15/2020 12:00:00 AM EDT [facility] OFFICE OUTPATIENT VISIT 25 MINUTES 11/10/2020 12:00:00 AM EDT [facility] ([facility]) Colonoscopy Flexible Proximal To Splenic Flexure W/Biopsy Si ngle/ 11/09/2020 12:00:00 AM EDT [facility] ([facility]) Colonoscopy 11/09/2020 12:00:00 AM EDT [facility] ECG ROUTINE ECG W/LEAST 12 LDS W/I&R <td>POCT AMB EKG</td><td>Routine</td><td>10/28/2020</td><td> Paroxysmal atrial fibrillation Hypertension, unspecified type</td><td></td> 10/28/2020 12:00:00 AM EDT Hypertension, unspecified typeParoxysmal atrial fibrillation [facility] Hypertension, unspecified type Paroxysmal atrial fibrillation OFFICE OUTPATIENT VISIT 15 MINUTES 10/07/2020 12:00:00 AM EDT [facility] ([facility] ) OFFICE OUTPATIENT NEW 45 MINUTES 09/22[facility]2020 [facility] Trans Care SRV W/I 14D Of DC, Comm W/I 2 Dys Med Rec 09/08/2020 12:00:00 AM EDT [facility] ([facility] ) Results ID Date Data Source [id number] 03/14/2021 11:38:00 PM EDT [facility] ([facility]) Name Value Range Interpretation Code Description Data Yuridia rce(s) Supporting Document(s) ABG Partial Pressure Co2 37.6 mmHg 35.0-45.0 [facility] ([facility]) ABG pH (Arterial) 7.449 units 7.350-7.450 [facility] ABG Partial Pressure O2 78.1 mmHg 75.0-100.0 [facility] ([facility]) ABG Hco3 25.5 meq/L 22.0-26.0 [facility] ABG Total Co2 26.6 meq/L 22.0-29.0 [facility] ([facility]) ABG Base Excess 1.6 [facility] ([facility]) ABG O2 Saturation 95.4 % 95.0-99.0 [facility] ([facility]) ABG Standard Hco3 25.9 meq/L 22.0-26.0 [facility] ([facility]) ID Date Data Source [id number] 03/14/2021 11:36:00 PM EDT [facility] ([facility]) Name Value Range Interpretation Code Description Data Yuridia rce(s) Supporting Document(s) Influenza A Amplification Laboratory test result [facility] ([facility]) Negative results do not preclude influen za or RSV virus infection and should not be used as the sole basis for treatment or other patient management decisions. Influenza B Amplification Laboratory test result [facility] ([facility]) Negative results do not preclude influen za or RSV virus infection and should not be used as the sole basis for treatment or other patient management decisions. RSV Amplification Laboratory test result [facility] ([facility]) Negative results do not preclude influen za or RSV virus infection and should not be used as the sole basis for treatment or other patient management decisions. Laboratory test finding (navigational concept) Laboratory test result [facility] ([facility]) A false negative result may occur [...] pathogens. DISCLAIMER: Testing was performed using the [employer] SARS-CoV-2 test. This test was developed and its performance characteristics determined by [employer]. This test has not been FDA cleared [...] or revoked sooner. ID Date Data Source [id number] 03/14/2021 11:36:00 PM EDT [facility] Name Value Range Interpretation Code Description Data Yuridia rce(s) Supporting Document(s) SARS coronavirus 2 RNA [Presence] in Res piratory specimen by KANA with probe detection NEGATIVE [facility] This lab was ordered by [facility] a nd reported by [facility]. ID Date Data Source [id number] 03/14/2021 09:10:00 PM EDT [facility] Name Value Range Interpretation Code Description Data Yuridia rce(s) Supporting Document(s) Appearance, Urine RFX Laboratory test result [facility] Color, Urine RFX Laboratory test result [facility] PH,Urine RFX 5.0 units 5.0-9.0 [facility] Specific [place] Ur Auto RFX 1.029 1.002-1.035 [facility] ([facility]) Protein, Urine Auto RFX Laboratory test result [facility] Glucose, Urine (Ua) Auto RFX Laboratory test result [facility] Ketone, Urine Auto RFX Laboratory test result [facility] Nitrite, Urine Auto RFX Laboratory test result [facility] Urobilinogen, Urine Auto RFX 4.0 mg/dL 0.0-2.0 [facility] Bilirubin, Urine Auto RFX Laboratory test result [facility] ([facility]) WBC, Urine Auto RFX 5 /HPF 0-3 [facility] Blood, Urine Blood RFX Laboratory test result [facility] ([facility]) Leukocyte Esterase Ur Auto RFX Laboratory test result [facility] ([facility]) Squam Epithelial Cell Ur Aurfx 0 /HPF 0-6 [facility] RBC, Urine Auto RFX 0 /HPF 0-3 [facility] ([facility]) Bacteria, Urine Auto RFX Laboratory test result [facility] ([facility]) Hyaline Cast, Urine Auto RFX 0 /LPF 0-1 M EDENT ([facility]) Mucus, Urine RFX Laboratory test result [facility] ([facility]) ID Date Data Source [id number] 03/14/2021 09:10:00 PM EDT [facility] ([facility]) Name Value Range Interpretation Code Description Data Yuridia rce(s) Supporting Document(s) aPTT in Blood by Coagulation assay 37.8 s 25.9-37.0 [facility] ([facility]) ID Date Data Source [id number] 03/14/2021 09:10:00 PM EDT [facility] ([facility]) Name Value Range Interpretation Code Description Data Yuridia rce(s) Supporting Document(s) Prothrombin Time 14.5 s 12.7-14.5 [facility] ([facility]) Inr 1.09 [facility] ([facility] THERAPUTIC HUMAN INR VALUES INDICATIONS NORMAL RANGES PROPHYLAXIS/TREATMENT OF: VENOUS THROMBOSIS 2.0-3.0 PULMONARY EMBOLISM 2.0-3.0 PREVENTION OF SYSTEMIC EMBOLISM FROM: TISSUE HEART VALVES 2.0-3.0 ACUTE MYOCARDIAL INFARCTION 2.0-3.0 VALVULAR HEART DISEASE 2.0-3.0 ATRIAL FIBRILLATION 2.0-3.0 MECHANICAL VALVES(HIGH RISK) 2.5-3.5 RECURRENT MYOCARDIAL INFARCTION 2.5-3.5 ID Date Data Source [id number] 03/14/2021 09:10:00 PM EDT [facility] ([facility]) Name Value Range Interpretation Code Description Data Yuridia rce(s) Supporting Document(s) White Blood Count 10.5 10 4.0-10.0 [facility] ([facility]) Red Blood Count 4.10 10 4.30-6.10 [facility] ([facility]) Hemoglobin 12.2 g/dL 13.5-17.5 [facility] ([facility]) Mean Corpuscular Hemoglobin 29.8 pg 27.0-33.0 [facility] ([place] [facility]) Hematocrit 38.1 % 42.0-52.0 [facility] ([place] [facility]) Mean Corpuscular Volume 92.9 fl 80.0-96.0 [facility] ([facility]) Platelet Count, Automated 188 10 150-450 [facility] ([place] [facility]) Mean Corpuscular HGB Conc 32.0 g/dL 32.0-36.5 [facility] ([place] [facility]) Red Cell Distribution Width 14.3 % 11.5-14.5 [facility] ([place] [facility]) [place] % 11.4 % 2.0-8.0 [facility] ([place] [facility]) Lymph % 22.6 % 24.0-44.0 [facility] [facility] Neutrophils % 62.5 % 36.0-66.0 [facility] ([facility]) Baso % 1.0 % 0.0-1.0 [facility] ([place] [facility]) Eos % 2.1 % 0.0-3.0 [facility] [facility] Neutrophils # 6.6 10 1.5-8.5 [facility] ([facility]) Immature Granulocyte % 0.4 % 0-3.0 [facility] ([place] [facility]) Nucleated Red Blood Cell % 0.0 % 0-0 [facility] ([place] [facility]) Eos # 0.2 10 0.0-0.5 [facility] ([place] [facility]) Lymph # 2.4 10 1.5-5.0 [facility] [facility] [place] # 1.2 10 0.0-0.8 [facility] [facility] Baso # 0.1 10 0.0-0.2 [facility] [facility] ID Date Data Source [id number] 03/14/2021 09:10:00 PM EDT [facility] ([facility]) Name Value Range Interpretation Code Description Data Yuridia rce(s) Supporting Document(s) Lipoprotein lipase [Enzymatic activity/volume] in Serum or P lasma 411 U/L 73-393 [facility] ([place] [facility]) Lactate [Mass/volume] in Serum or Plasma 0.9 mmol/L 0.4-2.0 [facility] ([place] [facility]) Y/N query for Sepsis Lactate Rule: Y Ammonia [Mass/volume] in Blood 40 uMOL/L [facility] ([place] [facility]) ID Date Data Source [id number] 03/14/2021 09:10:00 PM EDT [facility] ([facility]) Name Value Range Interpretation Code Description Data Yuridia rce(s) Supporting Document(s) Glucose, Fasting 91 mg/dL 70-100 [facility] ([facility]) Blood Urea Nitrogen 17 mg/dL 7-18 [facility] ([facility]) Creatinine For GFR 0.74 mg/dL 0.70-1.30 [facility] ([facility]) Glomerular Filtration Rate Laboratory test result [facility] ([place] [facility]) <content>Units are mL/min/1.73 m2</content>
<content></content>
<content>Chronic Kidney Disease Staging per NKF:</content>
<content></content>
<content>Stage I & II GFR >=60 Normal to Mildly Decreased</content>
<content>Stage III GFR 30- 59 Moderately Decreased</content>
<content>Stage IV GFR 15-29 Severely Decreased</content>
<content>Stage V GFR <15 Very Little GFR Left</content>
<content>ESRD GFR <15 on IT TECHNICIAN</content>
<content></content> Sodium Level 140 meq/L 136-145 [facility] ([place] [facility]) Potassium Serum 3.9 meq/L 3.5-5.1 [facility] ([facility]) Carbon Dioxide Level 28 meq/L 21-32 [facility] ([facility]) Anion Gap 6 meq/L 8-16 [facility] ([place] [facility]) Chloride Level 106 meq/L 98-107 [facility] ([facility]) Calcium Level 9.3 mg/dL 8.5-10.1 [facility] ([facility]) ID Date Data Source [id number] 03/14/2021 09:10:00 PM EDT [facility] ([facility]) Name Value Range Interpretation Code Description Data Yuridia rce(s) Supporting Document(s) Ast/Sgot 21 U/L 7-37 [facility] ([facility]) Alkaline Phosphatase 70 U/L 45-117 [facility] ([facility]) Alt/SGPT 30 U/L 12-78 [facility] ([facility]) Bilirubin,Direct 0.4 mg/dL 0.0-0.2 [facility] ([facility]) Bilirubin,Total 1.0 mg/dL 0.2-1.0 [facility] ([facility]) Albumin 3.3 GM/DL 3.2-5.2 [facility] ([facility]) Total Protein 7.4 GM/DL 6.4-8.2 [facility] ([facility]) Albumin/Globulin Ratio 0.8 [facility] ([place] [facility]) ID Date Data Source [id number] 03/14/2021 09:10:00 PM EDT [facility] ([facility]) Name Value Range Interpretation Code Description Data [facility](s) Supporting Document(s) CPK Creatine Phosphokinase 128 U/L 39-308 [facility] ([place] [facility]) CK-MB Value Mass 2.8 ng/mL [facility] ([facility]) MB/CK Relative Index 2.19 [facility] ([facility]) <content>DIAGNOSIS CRITERIA</content>
<content>MMB ng/ml Relative Index (RI)</content>
<content>NON-AMI < or = 5 N/A</content>
<content>ENRIQUEZ ZONE > 5 < or = 4</content>
<content>AMI > 5 > 4</content>
<content></content> Troponin I Laboratory test result [facility] [facility] <content>Troponin I Reference Interval f or Siem[employer] LOCI:</content>
<content></content>
<content>99th Percentile= 0.00-0.045 ng/ml</content>
<content></content>
<content>Risk Stratification:</content>
<content><= 0.10 ng/ml Decreased Risk for Adverse Clinical</content>
<content>Events.</content>
<content>0.10-1.50 ng/ml Increased Risk for Adverse Clinical</content>
<content>Events. Evaluation of additional</content>
<content>criterion and/or repeat testing in 2-6</content>
<content>hours is suggested to rule out myocardial</content>
<content>damage.</content>
<content>>= 1.50 ng/ml Indicative of Myocardial Injury.</content>
<content></content> ID Date Data Source [id number] 03/08/2021 11:38:00 AM EDT [facility] ([facility]) Name Value Range Interpretation Code Description Data Yuridia rce(s) Supporting Document(s) Creatinine 0.8 mg/dL 0.6-1.3 [facility] ([place] [facility]) Glucose [Mass/volume] in Serum or Plasma 108 mg/dL 74-99 [facility] ([place] [facility]) 100-125 mg/dL PRE-DIABETES/FASTING >126 mg/dL DIABETES/FASTING Urea nitrogen [Mass/volume] in Serum or Plasma 18 mg/dL 7-18 [facility] ([place] [facility]) Sodium [Moles/volume] in Serum or Plasma 136 meq/L 136-145 [facility] ([place] [facility]) Chloride [Moles/volume] in Serum or Plasma 100 meq/L 98-107 [facility] ([place] [facility]) Potassium [Moles/volume] in Serum or Plasma 4.3 meq/L 3.5-5.1 [facility] ([place] [facility]) Calcium [Mass/volume] in Serum or Plasma 9.5 mg/dL 8.5-10.1 [facility] ([place] [facility]) Carbon dioxide, total [Moles/volume] in Serum or Plasma 31 meq/L 21 -32 [facility] ([place] [facility]) Glomerular filtration rate/1.73 sq M pre dicted among non-blacks [Volume Rate/Area] in Serum or Plasma by Creatinine-based formula (MDRD) Laboratory test result [facility] ([place] [facility] ) Glomerular filtration rate/1.73 sq M pre dicted among blacks [Volume Rate/Area] in Serum or Plasma by Creatinine-based formula (MDRD) Laboratory test result [facility] ([place] [facility]) <content>CHRONIC KIDNEY DISEASE STAGING PER NKF</content>
<content></content>
<content>STAGE I & II GFR >= 60 NORMAL TO MILDLY DECREASED</content>
<content>STAGE III GFR 30-59 MODERATELY DECREASED</content>
<content>STAGE IV GFR 15-29 SEVERELY DECREASED</content>
<content>STAGE V GFR <15 VERY LITTLE GFR LEFT</content>
<content>ESRD GFR <15 ON IT TECHNICIAN</content>
<content></content> ID Date Data Source [id number] 03/08/2021 11:38:00 AM EDT [facility] ([facility]) Name Value Range Interpretation Code Description Data Yuridia rce(s) Supporting Document(s) Magnesium 1.9 mg/dL 1.8-2.4 [facility] ([place] [facility]) ID Date Data Source [id number] 03/03/2021 12:14:00 PM EDT [facility] ([facility]) Name Value Range Interpretation Code Description Data Yuridia rce(s) Supporting Document(s) Glucose [Mass/volume] in Serum or Plasma 175 mg/dL 74-99 [facility] ([place] [facility]) 100-125 mg/dL PRE-DIABETES/FASTING >126 mg/dL DIABETES/FASTING Creatinine 0.7 mg/dL 0.6-1.3 [facility] Urea nitrogen [Mass/volume] in Serum or Plasma 21 mg/dL 7-18 [facility] ([place] [facility]) Chloride [Moles/volume] in Serum or Plasma 104 meq/L 98-107 [facility] ([place] [facility]) Potassium [Moles/volume] in Serum or Plasma 4.4 meq/L 3.5-5.1 [facility] ([place] [facility]) Sodium [Moles/volume] in Serum or Plasma 140 meq/L 136-145 [facility] ([place] [facility]) Calcium [Mass/volume] in Serum or Plasma 9.2 mg/dL 8.5-10.1 [facility] ([place] [facility]) Glomerular filtration rate/1.73 sq M pre dicted among non-blacks [Volume Rate/Area] in Serum or Plasma by Creatinine-based formula (MDRD) Laboratory test result [facility] ([place] [facility] ) Carbon dioxide, total [Moles/volume] in Serum or Plasma 31 meq/L 21 -32 [facility] [facility] Glomerular filtration rate/1.73 sq M pre dicted among blacks [Volume Rate/Area] in Serum or Plasma by Creatinine-based formula (MDRD) Laboratory test result [facility] ([place] [facility]) <content>CHRONIC KIDNEY DISEASE STAGING PER NKF</content>
<content></content>
<content>STAGE I & II GFR >= 60 NORMAL TO MILDLY DECREASED</content>
<content>STAGE III GFR 30-59 MODERATELY DECREASED</content>
<content>STAGE IV GFR 15-29 SEVERELY DECREASED</content>
<content>STAGE V GFR <15 VERY LITTLE GFR LEFT</content>
<content>ESRD GFR <15 ON IT TECHNICIAN</content>
<content></content> ID Date Data Source [id number] 03/03/2021 12:14:00 PM EDT [facility] ([facility]) Name Value Range Interpretation Code Description Data Yuridia rce(s) Supporting Document(s) Magnesium 1.5 mg/dL 1.8-2.4 [facility] ([place] [facility]) ID Date Data Source [id number] 02/28/2021 11:23:00 AM EDT [facility] ([facility]) Name Value Range Interpretation Code Description Data Yuridia rce(s) Supporting Document(s) Ferritin [Mass/volume] in Serum or Plasma 33 ng/mL 26-388 [facility] ([place] [facility]) ID Date Data Source [id number] 02/28/2021 11:23:00 AM EDT [facility] ([facility]) Name Value Range Interpretation Code Description Data Yuridia rce(s) Supporting Document(s) Hepatitis B virus surface Ab [Presence] in Serum by Im maurice Laboratory test result [facility] ([place] [facility] ) ID Date Data Source [id number] 02/28/2021 11:23:00 AM EDT [facility] ([facility]) Name Value Range Interpretation Code Description Data Yuridia rce(s) Supporting Document(s) Total Iron Binding Capacity 456 ug/dL 250-450 [facility] ([place] [facility]) Percent Saturation 11.4 % 19.7-50.0 [facility] ([facility]) Iron (Fe) 52 ug/dL 65-175 [facility] ([facility]) ID Date Data Source [id number] 02/28/2021 11:23:00 AM EDT [facility]) Name Value Range Interpretation Code Description Data Yuridia rce(s) Supporting Document(s) Ammonia [Mass/volume] in Blood 48 uMOL/L [facility] ([place] [facility]) ID Date Data Source [id number] 02/28/2021 11:23:00 AM EDT [facility] ([facility]) Name Value Range Interpretation Code Description Data Yuridia rce(s) Supporting Document(s) Hepatitis B Surface Antigen Laboratory test result [facility] ([place] [facility] Hepatitis C Virus Kelly Index 0.1 INDEX [facility] ([place] [facility] Negative Not infected with HCV, unless recent infection is suspected or other evidence exists to indicate HCV infection. Hepatitis B Core Antibody Igm Laboratory test result [facility] ([place] [facility]) Hepatitis A Antibody Igm Laboratory test result [facility]) ID Date Data Source [id number] 02/28/2021 11:23:00 AM EDT [facility] Name Value Range Interpretation Code Description Data Yuridia rce(s) Supporting Document(s) Inr 1.18 [facility] ([facility]) THERAPUTIC HUMAN INR VALUES INDICATIONS NORMAL RANGES PROPHYLAXIS/TREATMENT OF: VENOUS THROMBOSIS 2.0-3.0 PULMONARY EMBOLISM 2.0-3.0 PREVENTION OF SYSTEMIC EMBOLISM FROM: TISSUE HEART VALVES 2.0-3.0 ACUTE MYOCARDIAL INFARCTION 2.0-3.0 VALVULAR HEART DISEASE 2.0-3.0 ATRIAL FIBRILLATION 2.0-3.0 MECHANICAL VALVES(HIGH RISK) 2.5-3.5 RECURRENT MYOCARDIAL INFARCTION 2.5-3.5 Prothrombin Time 15.4 s 12.7-14.5 [facility] ([facility]) ID Date Data Source [id number] 02/28/2021 11:21:00 AM EDT [facility] ([facility]) Name Value Range Interpretation Code Description Data Yuridia rce(s) Supporting Document(s) Hepatitis B virus surface Ab [Presence] in Serum by [facility] Laboratory test result [facility] ([place] [facility] ID Date Data Source [id number] 02/28/2021 11:20:00 AM EDT [facility] ([facility]) Name Value Range Interpretation Code Description Data Yuridia rce(s) Supporting Document(s) Erythrocytes [#/volume] in Blood by Automated count 4.40 x10*6/UL 4.2 0-6.30 [facility] ([place] [facility] Leukocytes [#/volume] in Blood by Automated count 9.2 x10*3/UL 4.1-10 .9 [facility] ([place] [facility] Hemoglobin [Mass/volume] in Blood 12.8 g/dL 12.0-18.0 [facility] ([place] [facility] MCV 88.2 fL 80.0-97.0 [facility] ([facility]) Hematocrit [Volume Fraction] of Blood by Automated count 38.8 % 3 7.0-51.0 [facility] ([place] [facility] MCH 29.1 pg 26.0-32.0 [facility] ([facility]) MCHC 33.0 g/dL 31.0-38.0 [facility] ([facility]) Erythrocyte distribution width [Ratio] by Automated count 13.9 % 11.6-13.7 [facility] ([place] [facility]) MPV 8.5 FL 7.8-11.0 [facility] ([facility]) Lymph % 20.5 % 10.0-58.5 [facility] ([facility]) Platelets [#/volume] in Blood by Automated count 236 x10*3/UL 140-440 [facility] ([place] [facility]) Neut % 74.4 % 37.0-92.0 [facility] ([place] [facility]) Mid % 5.1 % 1.7-9.3 [facility] [facility] Lymph # 1.9 x10*3/UL 0.6-4.1 [facility] ([place] [facility]) Mid # 0.4 x10*3/UL 0.1-0.6 [facility] ([place] [facility]) Neut # 6.9 x10*3/UL 2.0-7.8 [facility] ([place] [facility]) ID Date Data Source [id number] 02/28/2021 11:20:00 AM EDT [facility] ([facility]) Name Value Range Interpretation Code Description Data Yuridia rce(s) Supporting Document(s) Glucose [Mass/volume] in Serum or Plasma 111 mg/dL 74-99 [facility] ([place] [facility]) 100-125 mg/dL PRE-DIABETES/FASTING >126 mg/dL DIABETES/FASTING Urea nitrogen [Mass/volume] in Serum or Plasma 18 mg/dL 7-18 [facility] ([place] [facility]) Potassium [Moles/volume] in Serum or Plasma 4.0 meq/L 3.5-5.1 [facility] ([place] [facility]) Creatinine 0.7 mg/dL 0.6-1.3 [facility] ([facility]) Sodium [Moles/volume] in Serum or Plasma 140 meq/L 136-145 [facility] ([place] [facility]) Carbon dioxide, total [Moles/volume] in Serum or Plasma 29 meq/L 21 -32 [facility] ([place] [facility]) Calcium [Mass/volume] in Serum or Plasma 9.5 mg/dL 8.5-10.1 [facility] ([place] [facility]) Chloride [Moles/volume] in Serum or Plasma 103 meq/L 98-107 [facility] ([place] [facility]) Alkaline phosphatase isoenzyme [Units/volume] in Serum or Pl asma 63 mg/dL 46-116 [facility] ([place] [facility]) Aspartate aminotransferase [Enzymatic activity/volume] in Serum or Plasma 27 U/L 15-37 [facility] ([place] [facility] ) Total Bilirubin 0.7 mg/dL 0.2-1.0 [facility] Albumin [Mass/volume] in Serum or Plasma 3.3 g/dL 3.4-5.0 [facility] ([place] [facility] Alanine aminotransferase [Enzymatic activity/volume] in Seru m or Plasma 30 U/L 12-78 [facility] ([place] [facility] Proteinase 3 Ab [Units/volume] in Serum 7.6 g/dL 6.4-8.2 [facility] ([place] [facility] Glomerular filtration rate/1.73 sq M pre dicted among blacks [Volume Rate/Area] in Serum or Plasma by Creatinine-based formula (MDRD) Laboratory test result [facility] ([place] [facility] <content>CHRONIC KIDNEY DISEASE STAGING PER NKF</content>
<content></content>
<content>STAGE I & II GFR >= 60 NORMAL TO MILDLY DECREASED</content>
<content>STAGE III GFR 30-59 MODERATELY DECREASED</content>
<content>STAGE IV GFR 15-29 SEVERELY DECREASED</content>
<content>STAGE V GFR <15 VERY LITTLE GFR LEFT</content>
<content>ESRD GFR <15 ON IT TECHNICIAN</content>
<content></content> Glomerular filtration rate/1.73 sq M pre dicted among non-blacks [Volume Rate/Area] in Serum or Plasma by Creatinine-based formula (MDRD) Laboratory test result [facility] ([place] [facility] A/G Ratio 0.77 CALC 1.00-1.90 [facility] ([facility]) ID Date Data Source [id number] 02/28/2021 11:20:00 AM EDT [facility] ([facility] Name Value Range Interpretation Code Description Data Yuridia rce(s) Supporting Document(s) Urine Color Laboratory test result [facility] ([place] [facility] Urine PH 6.0 units 5.0-9.0 [facility] ([facility]) Urine Appearance Laboratory test result [facility] ([place] [facility] Specific gravity of Urine 1.020 1.005-1.030 [facility] ([place] [facility]) Urine Protein Laboratory test result 0-0 [facility] ([place] [facility] Urine Blood Laboratory test result [facility] ([place] [facility] Urine Leukocytes Laboratory test result [facility] ([facility]) Glucose [Presence] in Urine [facility] Urine Ketone Laboratory test result [facility] [facility] Urine Nitrite Laboratory test result [facility] ([place] [facility] Urine Urobilinogen 0.2 mg/dL 0.2-1.0 [facility] ([facility]) Bilirubin.total [Mass/volume] in Serum or Plasma Laboratory test resu lt [facility] ([facility]) ID Date Data Source [id number] 02/23/2021 09:02:00 PM EDT [facility] ([facility]) Name Value Range Interpretation Code Description Data Yuridia rce(s) Supporting Document(s) Laboratory test finding (navigational concept) 0.01 ng/mL 0.00-0.08 [facility] ([facility]) ID Date Data Source [id number] 02/23/2021 06:29:00 PM EDT [facility] Name Value Range Interpretation Code Description Data Yuridia rce(s) Supporting Document(s) Laboratory test finding (navigational concept) 0.00 ng/mL 0.00-0.08 [facility] ([facility]) ID Date Data Source [id number] 02/23/2021 04:20:00 PM EDT [facility] Name Value Range Interpretation Code Description Data Yuridia rce(s) Supporting Document(s) Influenza A Amplification Laboratory test result [facility] ([facility]) Negative results do not preclude influen za or RSV virus infection and should not be used as the sole basis for treatment or other patient management decisions. Influenza B Amplification Laboratory test result [facility] ([place] [facility] Negative results do not preclude influen za or RSV virus infection and should not be used as the sole basis for treatment or other patient management decisions. RSV Amplification Laboratory test result [facility] [facility] Negative results do not preclude influen za or RSV virus infection and should not be used as the sole basis for treatment or other patient management decisions. Laboratory test finding (navigational concept) Laboratory test result [facility] ([facility]) A false negative result may occur [...] pathogens. DISCLAIMER: Testing was performed using the [employer] SARS-CoV-2 test. This test was developed and its performance characteristics determined by [employer]. This test has not been FDA cleared [...] or revoked sooner. ID Date Data Source [id number] 02/23/2021 04:20:00 PM EDT [facility] Name Value Range Interpretation Code Description Data Yuridia rce(s) Supporting Document(s) SARS coronavirus 2 RNA [Presence] in Res piratory specimen by KANA with probe detection NEGATIVE [facility] This lab was ordered by [facility] a nd reported by [facility]. ID Date Data Source [id number] 02/23/2021 04:12:00 PM EDT [facility] ([facility]) Name Value Range Interpretation Code Description Data Yuridia rce(s) Supporting Document(s) Hemoglobin 12.4 g/dL 13.5-17.5 [facility] White Blood Count 10.8 10 4.0-10.0 [facility] ([facility]) Red Blood Count 4.15 10 4.30-6.10 [facility] ([facility]) Hematocrit 38.4 % 42.0-52.0 [facility] ([facility]) Mean Corpuscular Volume 92.5 fl 80.0-96.0 [facility] ([facility]) Mean Corpuscular Hemoglobin 29.9 pg 27.0-33.0 [facility] ([place] [facility]) Red Cell Distribution Width 13.8 % 11.5-14.5 [facility] ([place] [facility]) Mean Corpuscular HGB Conc 32.3 g/dL 32.0-36.5 [facility] ([place] [facility]) Platelet Count, Automated 211 10 150-450 [facility] ([place] [facility]) Neutrophils % 66.8 % 36.0-66.0 [facility] ([facility]) Lymph % 19.9 % 24.0-44.0 [facility] [facility]) [place] % 9.5 % 2.0-8.0 [facility] [facility] Eos % 2.3 % 0.0-3.0 [facility] [facility] Immature Granulocyte % 0.4 % 0-3.0 [facility] ([place] [facility]) Baso % 1.1 % 0.0-1.0 [facility] [facility] Neutrophils # 7.2 10 1.5-8.5 [facility] ([facility]) Nucleated Red Blood Cell % 0.0 % 0-0 [facility] ([place] [facility]) Lymph # 2.1 10 1.5-5.0 [facility] [facility]) Eos # 0.3 10 0.0-0.5 [facility] [facility] [place] # 1.0 10 0.0-0.8 [facility] [facility] Baso # 0.1 10 0.0-0.2 [facility] [facility] ID Date Data Source [id number] 02/23/2021 04:12:00 PM EDT [facility] ([facility]) Name Value Range Interpretation Code Description Data Yuridia rce(s) Supporting Document(s) CK-MB Value Mass 3.3 ng/mL [facility] ([facility]) CPK Creatine Phosphokinase 102 U/L 39-308 [facility] ([facility]) MB/CK Relative Index 3.24 [facility] ([facility]) <content>DIAGNOSIS CRITERIA</content>
<content>MMB ng/ml Relative Index (RI)</content>
<content>NON-AMI < or = 5 N/A</content>
<content>ENRIQUEZ ZONE > 5 < or = 4</content>
<content>AMI > 5 > 4</content>
<content></content> Troponin I Laboratory test result [facility] <content>Troponin I Reference Interval f or Siem[employer] LOCI:</content>
<content></content>
<content>99th Percentile= 0.00-0.045 ng/ml</content>
<content></content>
<content>Risk Stratification:</content>
<content><= 0.10 ng/ml Decreased Risk for Adverse Clinical</content>
<content>Events.</content>
<content>0.10-1.50 ng/ml Increased Risk for Adverse Clinical</content>
<content>Events. Evaluation of additional</content>
<content>criterion and/or repeat testing in 2-6</content>
<content>hours is suggested to rule out myocardial</content>
<content>damage.</content>
<content>>= 1.50 ng/ml Indicative of Myocardial Injury.</content>
<content></content> ID Date Data Source [id number] 02/23/2021 04:12:00 PM EDT [facility] ([facility]) Name Value Range Interpretation Code Description Data Yuridia rce(s) Supporting Document(s) Alt/SGPT 32 U/L 12-78 [facility] ([place] [facility]) Alkaline Phosphatase 67 U/L 45-117 [facility] ([facility]) Ast/Sgot 24 U/L 7-37 [facility] ([facility]) Bilirubin,Total 0.9 mg/dL 0.2-1.0 [facility] ([facility]) Bilirubin,Direct 0.3 mg/dL 0.0-0.2 [facility] ([facility]) Total Protein 7.2 GM/DL 6.4-8.2 [facility] ([facility]) Albumin/Globulin Ratio 0.8 [facility] ([facility]) Albumin 3.1 GM/DL 3.2-5.2 [facility] [facility]) ID Date Data Source [id number] 02/23/2021 04:12:00 PM EDT [facility] ([facility]) Name Value Range Interpretation Code Description Data Yuridia rce(s) Supporting Document(s) Lipoprotein lipase [Enzymatic activity/volume] in Serum or P lasma 249 U/L 73-393 [facility] ([facility]) Natriuretic peptide.B prohormone N-Terminal [Mass/volu me] in Serum or Plasma 303 pg/mL [facility] ([facility] ) Thyrotropin [Units/volume] in Serum or Plasma by Detec tion limit <= 0.05 mIU/L 1.080 uIU/ML 0.358-3.740 [facility] ([facility] ) Thyroxine (T4) free [Mass/volume] in Serum or Plasma 1.07 ng/dL 0.76- 1.46 [facility] ([facility]) ID Date Data Source [id number] 02/23/2021 04:11:00 PM EDT [facility] ([facility]) Name Value Range Interpretation Code Description Data Yuridia rce(s) Supporting Document(s) Laboratory test finding (navigational concept) 0.00 ng/mL 0.00-0.08 [facility] ([facility]) ID Date Data Source [id number] 02/23/2021 04:10:00 PM EDT [facility] ([facility]) Name Value Range Interpretation Code Description Data Yuridia rce(s) Supporting Document(s) Laboratory test finding (navigational concept) 145 mg/dL 70-105 [facility] ([facility]) Laboratory test finding (navigational concept) 37.0 % 38.0-51.0 [facility] ([facility]) Laboratory test finding (navigational concept) 138 meq/L 136-145 [facility] ([facility]) Laboratory test finding (navigational concept) 5.2 mg/dL 4.5-5.3 [facility] ([facility]) Laboratory test finding (navigational concept) 100 meq/L 98-109 [facility] ([facility]) Laboratory test finding (navigational concept) 4.3 meq/L 3.5-5.1 [facility] ([facility]) Laboratory test finding (navigational concept) 20 mg/dL 8-26 [facility] ([facility]) Laboratory test finding (navigational concept) 27.0 MM/L 23.0-27.0 [facility] ([facility]) Laboratory test finding (navigational concept) 0.8 mg/dL 0.6-1.3 [facility] ([facility]) ID Date Data Source [id number] 01/31/2021 02:23:00 PM EDT [facility] ([facility]) Name Value Range Interpretation Code Description Data Yuridia rce(s) Supporting Document(s) Glucose [Mass/volume] in Serum or Plasma 75 mg/dL 74-99 [facility] ([facility]) 100-125 mg/dL PRE-DIABETES/FASTING >126 mg/dL DIABETES/FASTING Sodium [Moles/volume] in Serum or Plasma 139 meq/L 136-145 [facility] ([facility]) Urea nitrogen [Mass/volume] in Serum or Plasma 14 mg/dL 7-18 [facility] ([facility]) Creatinine 0.7 mg/dL 0.6-1.3 [facility] [facility] Chloride [Moles/volume] in Serum or Plasma 103 meq/L 98-107 [facility] ([facility]) Carbon dioxide, total [Moles/volume] in Serum or Plasma 30 meq/L 21 -32 [facility] ([facility]) Potassium [Moles/volume] in Serum or Plasma 4.5 meq/L 3.5-5.1 [facility] ([facility]) Alkaline phosphatase isoenzyme [Units/volume] in Serum or Pl asma 63 mg/dL 46-116 [facility] ([facility]) Calcium [Mass/volume] in Serum or Plasma 9.5 mg/dL 8.5-10.1 [facility] ([facility]) Total Bilirubin 0.8 mg/dL 0.2-1.0 [facility] ([facility]) Albumin [Mass/volume] in Serum or Plasma 3.4 g/dL 3.4-5.0 [facility] ([facility]) Alanine aminotransferase [Enzymatic activity/volume] in Seru m or Plasma 35 U/L 12-78 [facility] ([facility]) Aspartate aminotransferase [Enzymatic activity/volume] in Serum or Plasma 27 U/L 15-37 [facility] ([facility] ) Proteinase 3 Ab [Units/volume] in Serum 7.2 g/dL 6.4-8.2 [facility] ([facility]) Glomerular filtration rate/1.73 sq M pre dicted among non-blacks [Volume Rate/Area] in Serum or Plasma by Creatinine-based formula (MDRD) Laboratory test result [facility] ([facility] ) Glomerular filtration rate/1.73 sq M pre dicted among blacks [Volume Rate/Area] in Serum or Plasma by Creatinine-based formula (MDRD) Laboratory test result [facility] ([facility]) <content>CHRONIC KIDNEY DISEASE STAGING PER NKF</content>
<content></content>
<content>STAGE I & II GFR >= 60 NORMAL TO MILDLY DECREASED</content>
<content>STAGE III GFR 30-59 MODERATELY DECREASED</content>
<content>STAGE IV GFR 15-29 SEVERELY DECREASED</content>
<content>STAGE V GFR <15 VERY LITTLE GFR LEFT</content>
<content>ESRD GFR <15 ON IT TECHNICIAN</content>
<content></content> A/G Ratio 0.89 CALC 1.00-1.90 [facility] ([facility]) ID Date Data Source [id number] 01/31/2021 02:23:00 PM EDT [facility] ([facility]) Name Value Range Interpretation Code Description Data Yuridia rce(s) Supporting Document(s) Magnesium 1.6 mg/dL 1.8-2.4 [facility] ([facility]) ID Date Data Source [id number] 01/31/2021 02:23:00 PM EDT [facility] ([facility]) Name Value Range Interpretation Code Description Data Yuridia rce(s) Supporting Document(s) Hemoglobin A1c/Hemoglobin.total in Blood 6.9 % [facility] ([facility]) Lab Result Notes: Pre-Diabetes 5.7 - 6.4 % Diabetes = or > 6.5% Glucose mean value [Mass/volume] in Blood Estimated fr om glycated hemoglobin 151 mg/dL 60-110 [facility] ([facility] ) ID Date Data Source [id number] 01/31/2021 02:23:00 PM EDT [facility] ([facility]) Name Value Range Interpretation Code Description Data Yuridia rce(s) Supporting Document(s) Hemoglobin A1c/Hemoglobin.total in Blood Laboratory test result [facility] ([facility]) Magnesium, Serum Laboratory test result [facility] ([facility]) ID Date Data Source [id number] 11/10/2020 12:58:00 PM EDT [facility] ([facility] Name Value Range Interpretation Code Description Data Yuridia rce(s) Supporting Document(s) Glucose [Mass/volume] in Serum or Plasma 104 mg/dL 74-99 [facility] ([facility]) 100-125 mg/dL PRE-DIABETES/FASTING >126 mg/dL DIABETES/FASTING Creatinine 0.7 mg/dL 0.6-1.3 [facility] [facility] Urea nitrogen [Mass/volume] in Serum or Plasma 14 mg/dL 7-18 [facility] ([facility]) Potassium [Moles/volume] in Serum or Plasma 4.5 meq/L 3.5-5.1 [facility] ([facility]) Sodium [Moles/volume] in Serum or Plasma 137 meq/L 136-145 [facility] ([facility]) Chloride [Moles/volume] in Serum or Plasma 103 meq/L 98-107 [facility] ([facility]) Carbon dioxide, total [Moles/volume] in Serum or Plasma 28 meq/L 21 -32 [facility] ([facility]) Alkaline phosphatase isoenzyme [Units/volume] in Serum or Pl asma 67 mg/dL 46-116 [facility] ([facility]) Calcium [Mass/volume] in Serum or Plasma 9.8 mg/dL 8.5-10.1 [facility] ([facility]) Aspartate aminotransferase [Enzymatic activity/volume] in Serum or Plasma 24 U/L 15-37 [facility] ([facility] ) Total Bilirubin 0.9 mg/dL 0.2-1.0 [facility] ([facility]) Alanine aminotransferase [Enzymatic activity/volume] in Seru m or Plasma 27 U/L 12-78 [facility] ([facility]) Albumin [Mass/volume] in Serum or Plasma 3.4 g/dL 3.4-5.0 [facility] ([facility]) A/G Ratio 0.85 CALC 1.00-1.90 [facility] ([place] [facility]) Glomerular filtration rate/1.73 sq M pre dicted among non-blacks [Volume Rate/Area] in Serum or Plasma by Creatinine-based formula (MDRD) Laboratory test result [facility] ([place] Proteinase 3 Ab [Units/volume] in Serum 7.4 g/dL 6.4-8.2 [facility] ([facility]) Glomerular filtration rate/1.73 sq M pre dicted among blacks [Volume Rate/Area] in Serum or Plasma by Creatinine-based formula (MDRD) Laboratory test result [facility] ([facility]) <content>CHRONIC KIDNEY DISEASE STAGING PER NKF</content>
<content></content>
<content>STAGE I & II GFR >= 60 NORMAL TO MILDLY DECREASED</content>
<content>STAGE III GFR 30-59 MODERATELY DECREASED</content>
<content>STAGE IV GFR 15-29 SEVERELY DECREASED</content>
<content>STAGE V GFR <15 VERY LITTLE GFR LEFT</content>
<content>ESRD GFR <15 ON IT TECHNICIAN</content>
<content></content> ID Date Data Source [id number] 11/10/2020 12:58:00 PM EDT [facility] ([facility]) Name Value Range Interpretation Code Description Data Yuridia rce(s) Supporting Document(s) Hemoglobin A1c/Hemoglobin.total in Blood 6.7 % [facility] ([place] Lab Result Notes: Pre-Diabetes 5.7 - 6.4 % Diabetes = or > 6.5% Glucose mean value [Mass/volume] in Blood Estimated fr om glycated hemoglobin 146 mg/dL 60-110 [facility] ([place] [facility] ID Date Data Source [id number] 11/10/2020 12:58:00 PM EDT [facility] ([facility] Name Value Range Interpretation Code Description Data Yuridia rce(s) Supporting Document(s) Leukocytes [#/volume] in Blood by Automated count 9.0 x10*3/UL 4.1-10 .9 [facility] ([place] [facility]) Hemoglobin [Mass/volume] in Blood 14.4 g/dL 12.0-18.0 [facility] ([place]) Hematocrit [Volume Fraction] of Blood by Automated count 43.1 % 3 7.0-51.0 [facility] ([place] Erythrocytes [#/volume] in Blood by Automated count 4.70 x10*6/UL 4.2 0-6.30 [facility] ([place]) MCHC 33.5 g/dL 31.0-38.0 [facility] ([place] [facility]) MCH 30.7 pg 26.0-32.0 [facility] ([facility]) MCV 91.7 fL 80.0-97.0 [facility] ([place] [facility]) MPV 8.2 FL 7.8-11.0 [facility] ([facility]) Platelets [#/volume] in Blood by Automated count 237 x10*3/UL 140-440 [facility] ([place] [facility] Erythrocyte distribution width [Ratio] by Automated count 12.9 % 11.6-13.7 [facility] ([facility]) Mid % 5.7 % 1.7-9.3 [facility] ([place] [facility]) Lymph % 20.4 % 10.0-58.5 [facility] ([place] [facility]) Neut % 73.9 % 37.0-92.0 [facility] [facility]) Lymph # 1.8 x10*3/UL 0.6-4.1 [facility] ([facility]) Neut # 6.6 x10*3/UL 2.0-7.8 [facility] ([facility]) Mid # 0.6 x10*3/UL 0.1-0.6 [facility] ([facility]) ID Date Data Source [id number] 11/10/2020 12:58:00 PM EDT [facility] ([facility]) Name Value Range Interpretation Code Description Data Yuridia rce(s) Supporting Document(s) Hemoglobin A1c/Hemoglobin.total in Blood Laboratory test result [facility] ([facility]) ID Date Data Source [id number] 11/09/2020 09:09:00 AM EDT [facility] ([facility], ) Name Value Range Interpretation Code Description Data Yuridia rce(s) Supporting Document(s) Surgical pathology study Laboratory test result [facility] ([facility], ) FINAL DIAGNOSIS Descending and rectum polyps, polypectomy: Hyperplastic poly, fragments. 11/10/2020 - 100 CLINICAL DIAGNOSIS History colon cancer 11/09/2020 - 1450 GROSS DIAGNOSIS Received in formalin labeled "biopsy descending colon/polyps rectum" and consists of fragments of tissue, 0.2 x 0.1 x 0.1 cm. All in one. -OA 11/09/2020 - 1450 Signed MEGHAN HOLT MD 11/10/2020 1001 ID Date Data Source [id number] 11/04/2020 09:55:00 AM EDT [facility] Name Value Range Interpretation Code Description Data Yuridia rce(s) Supporting Document(s) SARS-CoV-2 (COVID-19) RNA [Presence] in Respiratory specimen by KANA with probe detection Not Detected [facility] This lab was ordered by Health system and reported by [facility]. ID Date Data Source [id number] 09/08/2020 11:14:00 AM EDT [facility] ([facility]) Name Value Range Interpretation Code Description Data Yuridia rce(s) Supporting Document(s) Glucose [Mass/volume] in Serum or Plasma 113 mg/dL 74-99 [facility] ([facility]) 100-125 mg/dL PRE-DIABETES/FASTING >126 mg/dL DIABETES/FASTING Urea nitrogen [Mass/volume] in Serum or Plasma 14 mg/dL 7-18 [facility] ([facility]) Creatinine 0.8 mg/dL 0.6-1.3 [facility] ([facility]) Sodium [Moles/volume] in Serum or Plasma 135 meq/L 136-145 [facility] ([facility]) Potassium [Moles/volume] in Serum or Plasma 3.9 meq/L 3.5-5.1 [facility] ([facility]) Carbon dioxide, total [Moles/volume] in Serum or Plasma 30 meq/L 21 -32 [facility] ([facility]) Chloride [Moles/volume] in Serum or Plasma 99 meq/L 98-107 [facility] ([facility]) Calcium [Mass/volume] in Serum or Plasma 9.7 mg/dL 8.5-10.1 [facility] ([facility]) Total Bilirubin 1.1 mg/dL 0.2-1.0 [facility] ([facility]) Aspartate aminotransferase [Enzymatic activity/volume] in Serum or Plasma 42 U/L 15-37 [facility] ([facility] ) Alkaline phosphatase isoenzyme [Units/volume] in Serum or Pl asma 76 mg/dL 46-116 [facility] ([facility]) Albumin [Mass/volume] in Serum or Plasma 3.3 g/dL 3.4-5.0 [facility] ([facility]) Alanine aminotransferase [Enzymatic activity/volume] in Seru m or Plasma 59 U/L 12-78 [facility] ([facility]) Proteinase 3 Ab [Units/volume] in Serum 7.7 g/dL 6.4-8.2 [facility] ([facility]) A/G Ratio 0.75 CALC 1.00-1.90 [facility] [facility]) Glomerular filtration rate/1.73 sq M pre dicted among non-blacks [Volume Rate/Area] in Serum or Plasma by Creatinine-based formula (MDRD) Laboratory test result [facility] ([place] [facility] Glomerular filtration rate/1.73 sq M pre dicted among blacks [Volume Rate/Area] in Serum or Plasma by Creatinine-based formula (MDRD) Laboratory test result [facility] ([place] [facility]) <content>CHRONIC KIDNEY DISEASE STAGING PER NKF</content>
<content></content>
<content>STAGE I & II GFR >= 60 NORMAL TO MILDLY DECREASED</content>
<content>STAGE III GFR 30-59 MODERATELY DECREASED</content>
<content>STAGE IV GFR 15-29 SEVERELY DECREASED</content>
<content>STAGE V GFR <15 VERY LITTLE GFR LEFT</content>
<content>ESRD GFR <15 ON IT TECHNICIAN</content>
<content></content> ID Date Data Source [id number] 09/08/2020 11:14:00 AM EDT [facility] ([facility]) Name Value Range Interpretation Code Description Data Yuridia rce(s) Supporting Document(s) Hemoglobin A1c/Hemoglobin.total in Blood 6.7 % [facility] ([place] [facility] Lab Result Notes: Pre-Diabetes 5.7 - 6.4 % Diabetes = or > 6.5% Glucose mean value [Mass/volume] in Blood Estimated fr om glycated hemoglobin 146 mg/dL 60-110 [facility] ([place] [facility] ID Date Data Source [id number] 09/08/2020 11:14:00 AM EDT [facility] Name Value Range Interpretation Code Description Data Yuridia rce(s) Supporting Document(s) Erythrocytes [#/volume] in Blood by Automated count 4.88 x10*6/UL 4.2 0-6.30 [facility] ([facility]) Leukocytes [#/volume] in Blood by Automated count 10.3 x10*3/UL 4.1-1 0.9 [facility] ([facility]) MCV 94.7 fL 80.0-97.0 [facility] ([place] [facility]) Hemoglobin [Mass/volume] in Blood 15.9 g/dL 12.0-18.0 [facility] ([facility]) Hematocrit [Volume Fraction] of Blood by Automated count 46.2 % 3 7.0-51.0 [facility] MCHC 34.4 g/dL 31.0-38.0 [facility] ([place] [facility]) MCH 32.6 pg 26.0-32.0 [facility] ([facility]) Platelets [#/volume] in Blood by Automated count 269 x10*3/UL 140-440 [facility] ([place] [facility] Erythrocyte distribution width [Ratio] by Automated count 12.2 % 11.6-13.7 [facility] ([facility]) MPV 8.5 FL 7.8-11.0 [facility] ([place] [facility] Lymph % 22.1 % 10.0-58.5 [facility] ([facility]) Mid % 5.8 % 1.7-9.3 [facility] ([facility]) Neut % 72.1 % 37.0-92.0 [facility] ([facility]) Mid # 0.7 x10*3/UL 0.1-0.6 [facility] ([facility]) Lymph # 2.2 x10*3/UL 0.6-4.1 [facility] ([facility]) Neut # 7.4 x10*3/UL 2.0-7.8 [facility] ([facility]) ID Date Data Source [id number] 08/23/2020 10:19:00 AM EDT [facility] ([facility] Name Value Range Interpretation Code Description Data Yuridia rce(s) Supporting Document(s) Influenza A Amplification Laboratory test result [facility] ([facility]) Negative results do not preclude influen za or RSV virus infection and should not be used as the sole basis for treatment or other patient management decisions. Influenza B Amplification Laboratory test result [facility] ([facility]) Negative results do not preclude influen za or RSV virus infection and should not be used as the sole basis for treatment or other patient management decisions. RSV Amplification Laboratory test result [facility] ([facility]) Negative results do not preclude influen za or RSV virus infection and should not be used as the sole basis for treatment or other patient management decisions. Laboratory test finding (navigational concept) Laboratory test result [facility] ([facility]) A false negative result may occur [...] pathogens. DISCLAIMER: Testing was performed using the [employer] SARS-CoV-2 test. This test was developed and its performance characteristics determined by [employer]. This test has not been FDA cleared [...] or revoked sooner. ID Date Data Source [id number] 08/23/2020 10:19:00 AM EDT [facility] Name Value Range Interpretation Code Description Data Yuridia rce(s) Supporting Document(s) SARS coronavirus 2 RNA [Presence] in Res piratory specimen by KANA with probe detection NEGATIVE [facility] This lab was ordered by [facility] a nd reported by [facility]. ID Date Data Source [id number] 08/23/2020 08:27:00 AM EDT [facility] ([facility]) Name Value Range Interpretation Code Description Data Yuridia rce(s) Supporting Document(s) Laboratory test finding (navigational concept) 0.01 ng/mL 0.00-0.08 [facility] ([facility]) ID Date Data Source [id number] 08/23/2020 08:25:00 AM EDT [facility] ([facility]) Name Value Range Interpretation Code Description Data Yuridia rce(s) Supporting Document(s) Laboratory test finding (navigational concept) 45.0 % 38.0-51.0 [facility] ([facility]) Laboratory test finding (navigational concept) 139 meq/L 136-145 [facility] ([facility]) Laboratory test finding (navigational concept) 158 mg/dL 70-105 [facility] ([facility]) Laboratory test finding (navigational concept) 4.4 meq/L 3.5-5.1 [facility] ([facility]) Laboratory test finding (navigational concept) 4.6 mg/dL 4.5-5.3 [facility] ([facility]) Laboratory test finding (navigational concept) 101 meq/L 98-109 [facility] ([facility]) Laboratory test finding (navigational concept) 31.0 MM/L 23.0-27.0 [facility] ([facility]) Laboratory test finding (navigational concept) 10 mg/dL 8-26 [facility] ([facility]) Laboratory test finding (navigational concept) 0.6 mg/dL 0.6-1.3 [facility] ([facility]) ID Date Data Source [id number] 08/23/2020 08:20:00 AM EDT [facility] ([facility]) Name Value Range Interpretation Code Description Data Yuridia rce(s) Supporting Document(s) Magnesium [Moles/volume] in Serum or Plasma 1.6 mg/dL 1.8-2.4 [facility] ([place] [facility] Natriuretic peptide.B prohormone N-Terminal [Mass/volu me] in Serum or Plasma 285 pg/mL [facility] ([place] [facility] Thyrotropin [Units/volume] in Serum or Plasma by Detec tion limit <= 0.05 mIU/L 0.774 uIU/ML 0.358-3.740 [facility] ([facility] ) ID Date Data Source [id number] 08/23/2020 08:20:00 AM EDT [facility] ([facility] Name Value Range Interpretation Code Description Data Yuridia rce(s) Supporting Document(s) Ast/Sgot 42 U/L 7-37 [facility] [facility]) Alt/SGPT 33 U/L 12-78 [facility] [facility]) Alkaline Phosphatase 90 U/L 45-117 [facility] ([facility]) Bilirubin,Total 1.3 mg/dL 0.2-1.0 [facility] ([facility]) Bilirubin,Direct 0.6 mg/dL 0.0-0.2 [facility] ([facility]) Total Protein 7.7 GM/DL 6.4-8.2 [facility] ([facility]) Albumin 3.1 GM/DL 3.2-5.2 [facility] [facility] Albumin/Globulin Ratio 0.7 [facility] ([facility]) ID Date Data Source [id number] 08/23/2020 08:20:00 AM EDT [facility] ([facility]) Name Value Range Interpretation Code Description Data Yuridia rce(s) Supporting Document(s) Prothrombin Time 16.2 s 12.5-14.3 [facility] ([facility]) Inr 1.27 [facility] ([place] [facility] THERAPUTIC HUMAN INR VALUES INDICATIONS NORMAL RANGES PROPHYLAXIS/TREATMENT OF: VENOUS THROMBOSIS 2.0-3.0 PULMONARY EMBOLISM 2.0-3.0 PREVENTION OF SYSTEMIC EMBOLISM FROM: TISSUE HEART VALVES 2.0-3.0 ACUTE MYOCARDIAL INFARCTION 2.0-3.0 VALVULAR HEART DISEASE 2.0-3.0 ATRIAL FIBRILLATION 2.0-3.0 MECHANICAL VALVES(HIGH RISK) 2.5-3.5 RECURRENT MYOCARDIAL INFARCTION 2.5-3.5 ID Date Data Source [id number] 08/23/2020 08:20:00 AM EDT [facility] ([facility]) Name Value Range Interpretation Code Description Data Yuridia rce(s) Supporting Document(s) White Blood Count 7.8 10 4.0-10.0 [facility] ([facility]) Hematocrit 42.5 % 42.0-52.0 [facility] ([place] [facility]) Hemoglobin 14.3 g/dL 13.5-17.5 [facility] [facility] Red Blood Count 4.28 10 4.30-6.10 [facility] ([facility]) Mean Corpuscular Volume 99.3 fl 80.0-96.0 [facility] ([facility]) Mean Corpuscular Hemoglobin 33.4 pg 27.0-33.0 [facility] ([facility]) Red Cell Distribution Width 12.3 % 11.5-14.5 ME DENT ([facility]) Mean Corpuscular HGB Conc 33.6 g/dL 32.0-36.5 [facility] NT ([facility]) Platelet Count, Automated 164 10 150-450 [facility] NT ([facility]) Lymph % 23.1 % 24.0-44.0 [facility] ([place] [facility]) Neutrophils % 62.1 % 36.0-66.0 [facility] ([facility]) [place] % 10.3 % 2.0-8.0 [facility] ([place] [facility]) Baso % 1.4 % 0.0-1.0 [facility] [facility]) Eos % 2.6 % 0.0-3.0 [facility] ([place] [facility]) Immature Granulocyte % 0.5 % 0-3.0 [facility] ([facility]) Neutrophils # 4.9 10 1.5-8.5 [facility] ([facility]) Nucleated Red Blood Cell % 0.0 % 0-0 MED ENT ([facility]) Lymph # 1.8 10 1.5-5.0 [facility] ([place] [facility]) Eos # 0.2 10 0.0-0.5 [facility] ([place] [facility]) Baso # 0.1 10 0.0-0.2 [facility] ([place] [facility]) [place] # 0.8 10 0.0-0.8 [facility] [facility] ID Date Data Source [id number] 07/04/2020 12:00:00 AM EST [facility] Name Value Range Interpretation Code Description Data Yuridia rce(s) Supporting Document(s) SARS-CoV2 Rapid Antigen Negative [facility] This lab was ordered by [facility] and reported by [facility]. Procedure Social History Code Duration Value Status Description Data Source(s ) Smoking 03/23/2021 12:00:00 AM EDT Patient has never smoked co mpleted Patient has never smoked [facility] ([facility]) Alcohol intake 03/03/2021 12:00:00 AM EDT Ex-drinker (finding) comp leted Ex- drinker (finding) [facility] Alcohol intake 12/21/2020 12:00:00 AM EDT Ex-drinker (finding) comp leted Ex- drinker (finding) [facility] Alcohol intake 10/28/2020 12:00:00 AM EDT Current drinker of al cohol (finding) completed Current drinker of alcohol (finding) [facility] Vital Signs ID Date Data Source UNK Name Value Range Interpretation Code Description Data Source(s) Body temperature 97.2 [degF] 97.2 [degF] MED[facility] ([facility], ) Body weight 266.00 [lb_av] 266.00 [lb_av] SARKIS Gallo ([facility]) Body mass index (BMI) [Ratio] 38.2 kg/m2 38.2 k g/m2 FREDA ([facility]) Systolic blood pressure 100 mm[Hg] 100 mm[Hg] DENISSE ([facility]) Diastolic blood pressure 72 mm[Hg] 72 mm[Hg] FREDA ([facility]) Heart rate 82 /min 82 /min [facility] ([facility]) Body height 70 [in_i] 70 [in_i] [facility] 5'10" Systolic blood pressure 110 mm[Hg] 110 mm[Hg] [facility] Diastolic blood pressure 68 mm[Hg] 68 mm[Hg] [facility] Heart rate 71 /min 71 /min [facility] Body height 172.7 cm 172.7 cm [facility] Body weight 118.389 kg 118.389 kg [facility] Body mass index (BMI) [Ratio] 39.68 kg/m2 39.68 kg/m2 [facility] Oxygen saturation in Arterial blood by Pulse oximetry 95 % 95 % [facility] Systolic blood pressure 102 mm[Hg] 102 mm[Hg] DENISSE ([facility]) Diastolic blood pressure 82 mm[Hg] 82 mm[Hg] FREDA ([facility]) Heart rate 58 /min 58 /min [facility] ([facility]) Body height 70 [in_i] 70 [in_i] [facility] ([facility]) 5'10" Body weight 262.00 [lb_av] 262.00 [lb_av] MEDEN T ([facility]) Oxygen saturation in Arterial blood by Pulse oximetry 99 % 99 % [facility] RM Air Body mass index (BMI) [Ratio] 37.6 kg/m2 37.6 k g/m2 [facility] ([facility]) Body weight 266.00 [lb_av] 266.00 [lb_av] MED[facility] T ([facility]) Systolic blood pressure 102 mm[Hg] 102 mm[Hg] [facility] ([facility]) Diastolic blood pressure 80 mm[Hg] 80 mm[Hg] [facility]) Heart rate 81 /min 81 /min [facility] ([facility]) Body height 70 [in_i] 70 [in_i] [facility] ([facility]) 5'10" Oxygen saturation in Arterial blood by Pulse oximetry 99 % 99 % [facility] ([facility]) RM Air Body mass index (BMI) [Ratio] 38.2 kg/m2 38.2 k g/m2 [facility] ([facility]) Body mass index (BMI) [Ratio] 35.7 kg/m2 35.7 k g/m2 [facility] ([facility]) Diastolic blood pressure 94 mm[Hg] 94 mm[Hg] [facility] ([facility]) Systolic blood pressure 118 mm[Hg] 118 mm[Hg] [facility]) Heart rate 73 /min 73 /min [facility] ([facility]) Body height 70 [in_i] 70 [in_i] [facility] ([facility]) 5'10" Body weight 249.00 [lb_av] 249.00 [lb_av] MED[facility] T ([facility]) Oxygen saturation in Arterial blood by Pulse oximetry 98 % 98 % [facility] ([facility]) Body temperature 97.9 [degF] 97.9 [degF] [facility] ([facility], ) Systolic blood pressure 100 mm[Hg] 100 mm[Hg] [facility] Diastolic blood pressure 70 mm[Hg] 70 mm[Hg] [facility] Heart rate 76 /min 76 /min [facility] Body height 172.7 cm 172.7 cm [facility] Body weight 109.861 kg 109.861 kg [facility] Body mass index (BMI) [Ratio] 36.83 kg/m2 36.83 kg/m2 [facility] Oxygen saturation in Arterial blood by Pulse oximetry 96 % 96 % [facility] Body temperature 98.7 [degF] 98.7 [degF] [facility] ([facility], ) Systolic blood pressure 118 mm[Hg] 118 mm[Hg] [facility] ([facility]) Diastolic blood pressure 62 mm[Hg] 62 mm[Hg] [facility] ([facility]) Heart rate 70 /min 70 /min [facility] ([facility]) Body height 70 [in_i] 70 [in_i] [facility] ([facility]) 5'10" Body weight 240.00 [lb_av] 240.00 [lb_av] MED[facility] T ([facility]) Body mass index (BMI) [Ratio] 34.4 kg/m2 34.4 k g/m2 [facility] ([facility]) Diastolic blood pressure 80 mm[Hg] 80 mm[Hg] [facility] Systolic blood pressure 110 mm[Hg] 110 mm[Hg] [facility] Heart rate 101 /min 101 /min [facility] Respiratory rate 18 /min 18 /min [facility] Body weight 111.585 kg 111.585 kg [facility] Body mass index (BMI) [Ratio] 37.40 kg/m2 37.40 kg/m2 [facility] Oxygen saturation in Arterial blood by Pulse oximetry 97 % 97 % [facility] Oxygen saturation in Arterial blood by Pulse oximetry 97 % 97 % [facility] ([facility]) Respiratory rate 18 /min 18 /min [facility] ( [facility]) Systolic blood pressure 135 mm[Hg] 135 mm[Hg] [facility] Diastolic blood pressure 93 mm[Hg] 93 mm[Hg] [facility] ([facility]) Heart rate 91 /min 91 /min [facility] ([facility]) Oxygen saturation in Arterial blood by Pulse oximetry 97 % 97 % [facility] ([facility]) Body weight 113.400 kg 113.400 kg [facility] ([facility]) [place] body weight 166 [lb_av] 166 [lb_av] [facility] T ([facility]) Body temperature 97.2 [degF] 97.2 [degF] [facility] ([facility]) Body height 70 [in_i] 70 [in_i] [facility] ([facility]) 5'10" Body weight 250.00 [lb_av] 250.00 [lb_av] [facility] T ([facility]) Body mass index (BMI) [Ratio] 35.9 kg/m2 35.9 k g/m2 [facility] ([facility]) [place] body weight 166 [lb_av] 166 [lb_av] [facility] ([facility]) Body weight 113.400 kg 113.400 kg [facility] ([facility]) Body surface area Derived from formula 2.29 m2 2.29 m2 [facility] ([facility]) Respiratory rate 18 /min 18 /min [facility] ( [facility]) Body temperature 97.2 [degF] 97.2 [degF] [facility] ([facility]) Body height 70 [in_i] 70 [in_i] [facility] ([facility]) 5'10" Body weight 250.00 [lb_av] 250.00 [lb_av] [facility] T ([facility]) Body mass index (BMI) [Ratio] 35.9 kg/m2 35.9 k g/m2 [facility] ([facility]) Body surface area Derived from formula 2.29 m2 2.29 m2 [facility] ([facility]) Systolic blood pressure 113 mm[Hg] 113 mm[Hg] [facility] Respiratory rate 17 /min 17 /min [facility] ( [facility]) Body height 70 [in_i] 70 [in_i] [facility] ([facility]) 5'10" Body weight 250.75 [lb_av] 250.75 [lb_av] [facility] ([facility]) Body mass index (BMI) [Ratio] 36.0 kg/m2 36.0 k g/m2 [facility] ([facility]) Diastolic blood pressure 73 mm[Hg] 73 mm[Hg] [facility] ([facility]) Heart rate 84 /min 84 /min [facility] ([facility]) Oxygen saturation in Arterial blood by Pulse oximetry 100 % 100 % [facility] ([facility]) Body temperature 95.4 [degF] 95.4 [degF] [facility] ([facility]) [place] body weight 166 [lb_av] 166 [lb_av] [facility] ([facility]) Body weight 113.740 kg 113.740 kg [facility] ([facility]) Body surface area Derived from formula 2.30 m2 2.30 m2 [facility] ([facility]) Systolic blood pressure 122 mm[Hg] 122 mm[Hg] M [facility] ([facility]) Diastolic blood pressure 86 mm[Hg] 86 mm[Hg] [facility] ([facility]) Body height 70 [in_i] 70 [in_i] [facility] ([facility]) 5'10" Body weight 248.50 [lb_av] 248.50 [lb_av] [facility] ([facility]) Body surface area Derived from formula 2.29 m2 2.29 m2 [facility] ([facility]) Body mass index (BMI) [Ratio] 35.7 kg/m2 35.7 k g/m2 [facility] ([facility], ) [place] body weight 166 [lb_av] 166 [lb_av] [facility] Body weight 112.720 kg 112.720 kg [facility] ([facility], ) Systolic blood pressure 118 mm[Hg] 118 mm[Hg] [facility] ([facility]) Diastolic blood pressure 62 mm[Hg] 62 mm[Hg] [facility]) Body weight 250.00 [lb_av] 250.00 [lb_av] [facility] Body mass index (BMI) [Ratio] 35.9 kg/m2 35.9 k g/m2 [facility] ([facility]) Heart rate 68 /min 68 /min [facility] ([facility]) Body height 70 [in_i] 70 [in_i] [facility] ([facility]) 5'10" Patient Treatment Plan of Care Planned Activity Planned Date Details Description Data Source (s) Lactulose 667 MG/ML Oral Solution 03/02/2021 12:00:00 AM EDT [facility] Furosemide 40 MG Oral Tablet 02/28/2021 12:00:00 AM EDT [facility] Metoprolol Tartrate 25 MG Oral Tablet 02/24/2021 12:00:00 AM EDT [facility] atorvastatin 20 MG Oral Tablet 02/24/2021 12:00:00 AM EDT [facility] apixaban 5 MG Oral Tablet 01/31/2021 12:00:00 AM EDT [facility] Cyclobenzaprine hydrochloride 10 MG Oral Tablet 01/02/2021 12:00:00 AM EDT [facility] Lisinopril 2.5 MG Oral Tablet 12/21/2020 12:00:00 AM EDT [facility] apixaban 5 MG Oral Tablet 12/15/2020 12:00:00 AM EDT [facility] Metoprolol Tartrate 50 MG Oral Tablet 10/28/2020 12:00:00 AM EDT [facility] Lisinopril 10 MG Oral Tablet 10/28/2020 12:00:00 AM EDT [facility] ropinirole 4 MG Oral Tablet 08/30/2020 12:00:00 AM EDT [facility] Metformin hydrochloride 1000 MG Oral Tablet 08/30/2020 12:00:00 AM EDT [facility] Magnesium Oxide 500 MG Oral Tablet 08/30/2020 12:00:00 AM EDT [facility] atorvastatin 40 MG Oral Tablet 08/30/2020 12:00:00 AM EDT [facility] Pravastatin Sodium 10 MG Oral Tablet 01/13/2020 12:00:00 AM EDT [facility] Metoprolol Tartrate 25 MG Oral Tablet 12/16/2019 12:00:00 AM EDT [facility] Hydrochlorothiazide 25 MG Oral Tablet 11/12/2019 12:00:00 AM EDT [facility] Lisinopril 10 MG Oral Tablet 11/12/2019 12:00:00 AM EDT [facility] Metformin hydrochloride 500 MG Oral Tablet 10/24/2019 12:00:00 AM E DT [facility]
[2021-04-03 21:15] LABS: RSV AMPLIFICATION NEGATIVE (NEGATIVE)
[2021-04-03 21:51] LABS: AMPHETAMINES LEVEL URINE NEGATIVE (NEGATIVE); BARBITURATES URINE NEGATIVE (NEGATIVE); BENZODIAZEPINES URINE NEGATIVE (NEGATIVE); CANNABINOIDS URINE NEGATIVE (NEGATIVE); COCAINE METABOLITE URINE NEGATIVE (NEGATIVE); METHADONE URINE NEGATIVE (NEGATIVE); OPIATES URINE NEGATIVE (NEGATIVE); PHENCYCLIDINE URINE NEGATIVE (NEGATIVE)
[2021-04-04 00:38] VITALS: BP 128/62
--- NOTE | 2021-04-04 06:44 | ECGEPIP ---
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
== END 2021-04-04 00:40 | disposition home or self-care (01) ==
LOC: M ED 17:48
DX: R53.1 Weakness (principal); U07.1 COVID-19; I10 Essential (primary) hypertension; I48.91 Unspecified atrial fibrillation; E78.5 Hyperlipidemia, unspecified; K74.69 Other cirrhosis of liver; Z87.442 Personal history of urinary calculi; Z79.01 Long term (current) use of anticoagulants; Z79.84 Long term (current) use of oral hypoglycemic drugs; Z79.899 Other long term (current) drug therapy; F10.11 Alcohol abuse, in remission

== ENCOUNTER 2021-04-05 11:00 | Outpatient (CLI) | payer BC ==
--- NOTE | 2021-04-04 00:32 | IPNPDOC ---
Text Note Date of Service The patient was seen on 04/04/21. NOTE Outpatient transfusion for COVID+ patient encounter Patient is COVID19+ will be receiving Monocolonal antibodies infusion therapy p er hospital infusion policy. Patient has been feeling tired at home with a cough, mild shortness of breath and muscle aches for the past 2 days which prompted him to come to the ER for visit. Denies a fever. Endorses being vaccinated with moderna vaccine earlier in the year but unsure as to when, he endorses getting 2 doses total and didn't get the booster. Patient does not meet criteria to be admitted to the hospital at this time. Patient is breathing at 95% on room air and does not dipped below 92% on ambulation. Patient will return to receive the infusion and then be discharged to home with OP followup. On exam patient was resting comfortably lungs were clear to auscultation bilaterally with no crackles or wheezing. Patient was calm awake and answering all questions appropriately. Is able to speak in full sentences without appearing short of breath. Consent was obtained with patient and signed in the chart. Patient advised to return to hospital should his symptoms worsen. EDWIN GALLAGHER MD Apr 04, 2021 00:32
[~2021-04-05] VITALS: Ht 177.8 cm; Wt 119.0 kg
[~2021-04-05 11:00] MED LIST changes: +ACETAMINOPHEN TAB 650MG DOSE (2X325MG) PO ONE; +ACETAMINOPHEN TAB 650MG DOSE (2X325MG) PO PRN; +ALBUTEROL 90 MCG/ACT 8GM HFA INHALER INH PRN; +ALBUTEROL SULFATE 2.5 MG/0.5 ML INH NEB SOLN INH PRN; +CASIRIVIMAB/IMDEVIMAB 1,200 MG in NS 250 ML IV ONE; +EPINEPHrine INJ 1 MG/ML 1ML AMP IM PRN; +NS 1,000 ML IV SCH; +diphenhydrAMINE 25MG CAP PO ONE; +diphenhydrAMINE 50MG/ML VIAL (J1200) IV PRN; +methylPREDNISolone 125MG 2ML VIAL IV PRN
[2021-04-05] MEDS ORDERED: CASIRIVIMAB (REGN10933) 600 MG, IMDEVIMAB (REGN10987) 600 MG in NS 250 ML IV ONE (11:20)
[2021-04-05 11:28] VITALS: BP 109/68
[2021-04-05 11:58] VITALS: BP 119/67
[2021-04-05 12:28] VITALS: BP 113/70
[2021-04-05 13:28] VITALS: BP 129/74
== END 2021-04-05 13:28 | disposition home or self-care (01) ==
LOC: M OPCLI4 11:00
PROVIDERS: ATTEND Emergency Medicine
DX: U07.1 COVID-19 (principal)

== ENCOUNTER 2021-04-05 13:40 | Emergency (ER) | payer BC ==
[~2021-04-05] VITALS: Ht 177.8 cm; Wt 120.5 kg
[~2021-04-05 13:40] MED LIST changes: -ACETAMINOPHEN TAB 650MG DOSE (2X325MG) PO ONE; -ACETAMINOPHEN TAB 650MG DOSE (2X325MG) PO PRN; -ALBUTEROL 90 MCG/ACT 8GM HFA INHALER INH PRN; -ALBUTEROL SULFATE 2.5 MG/0.5 ML INH NEB SOLN INH PRN; -CASIRIVIMAB/IMDEVIMAB 1,200 MG in NS 250 ML IV ONE; -EPINEPHrine INJ 1 MG/ML 1ML AMP IM PRN; -NS 1,000 ML IV SCH; -diphenhydrAMINE 25MG CAP PO ONE; -diphenhydrAMINE 50MG/ML VIAL (J1200) IV PRN; -methylPREDNISolone 125MG 2ML VIAL IV PRN
--- OUTSIDE RECORDS SUMMARY | 2021-04-05 13:46 | CCD | Continuity of Care Document ---
Author Author Dipak CID MD Organization Unknown Address [address] [place] [address] , [facility] [address] [place] [address] Phone [phone] Care Team Providers Care Spd Manager Name Role Phone Nader Goldman M.D. AUTM [phone] AUTM Unavailable Problems Active Problems Provider Date [...] CPT Code Status Date Vaccine Lot # [id number] Given 02/13/2010 Influenza Virus Split 3 Yrs And Above For Intramuscular Use Vital Signs Date Vital Result Comment 03/27/2021 2:28pm Body Temperature 97.2 F 01/17/2021 1:58pm Body Temperature 97.9 F Results Test Acquired Date Facility Test Result H/L Range Note Laboratory test finding 11/09/2020 [facility] [address] [place] [address] [phone] Pathology Request For Service (SEE NOTE) 1 [...] 1001 Procedures Date Code Description Status 02/08/2021 24808 Surgical Arthroscopy Shoulder W/ Rotator Cuff RPR Completed 02/08/2021 65272 Surgical Arthroscopy Halina W/Corac oacrm Ligm RLS Completed 02/08/2021 92864 Surgical Arthroscopy Shoulder DS TL Claviculc Completed 01/17/2021 28996 Office/Outpatient Established Mo d MDM 30-39 Min Completed 12/20/2020 84726 Office/Outpatient Established Lo w MDM 20-29 Min Completed 12/15/2020 49440 Office/Outpatient Established Mo d MDM 30-39 Min Completed 12/15/202020049 Inject/Drain Arthrocentesis Kylee r Joint/Bursa/Ganglion Cyst Completed 11/09/2020 82642 Colonoscopy Flexible Proximal To Splenic Flexure W/Biopsy Single/ Completed 10/07/2020 30321 Office/Outpatient Established Lo w MDM 20-29 Min Completed Medical Devices Description No Information Available Encounters Type Date Location Provider Dx Diagnosis Office Visit 03/27/2021 2:30p [facility] Marek Cid MD Z47.89 Encounter for other orthopedic aftercare Office Visit 02/21/2021 9:15a [facility] Z47.89 Encounter for other orthopedic aftercare Office Visit 01/17/2021 2:00p [facility] Marek Cid MD S46.011A Strain of [...] subs Assessments Date Code Description Provider 03/27/2021 Z47.89 Encounter for other orthopedic a ftfay Cid MD 03/23/2021 Z47.89 Encounter for other orthopedic a [facility] Marek Cid MD 02/21/2021 Z47.89 Encounter for [...] encounter Marek Cid MD Plan of Treatment Future Appointment(s):* 05/08/2021 9:15 am - Marek Cid MD at [facility] 03/27/2021 - Marek Cid MD* Z47.89 Encounter for other orthopedic aftercare Functional Status Description No Information Available Mental Status Description No Information Available Referrals Refer to Reason for Referral Status Appt Date Scott Hyde M.D. IRON DEF/ANEMIA, LIVER CIRRHOSIS [facility] at[facility]-[address], [place] [address] [phone]
--- OUTSIDE RECORDS SUMMARY | 2021-04-05 13:50 | CCD ---
Author Author [facility] Organization [facility] Address Unknown Phone Unavailable Care Team Providers Care Jumpbasting Facing Baster Name Role Phone Isra Goldman MD Unavailable [...] Unavailable [place], Lauren Blanche PA Unavailable Unavailable Mollison, Checo Jara MD Unavailable [...] MD Unavailable Unavailable MollisonCheco MD Unavailable Unavailable MARY GRACE KNIGHT MD Unavailable Unavailable EUGENE, BRODY MD Unavailable Unavailable EUGENE, BRODY MD Unavailable Unavailable EUGENE, BRODY MD Unavailable Unavailable EUGENE, BRODY MD Unavailable Unavailable EUGENE, BRODY MD Unavailable Unavailable EUGENE, BRODY MD Unavailable Unavailable EUGENE, BRODY MD Unavailable Unavailable EUGENE, BRODY MD Unavailable Unavailable EUGENE, BRODY MD Unavailable Unavailable EUGENE, BRODY MD Unavailable Unavailable EUGENE, BRODY MD Unavailable Unavailable EUGENE, BRODY MD Unavailable Unavailable EUGENE, BRODY MD Unavailable Unavailable EUGENE, BRODY MD Unavailable Unavailable EUGENE, BRODY MD Unavailable Unavailable EUGENE, BRODY MD Unavailable Unavailable EUGENE, BRODY MD Unavailable Unavailable EUGENE, BRODY MD Unavailable Unavailable EUGENE, BRODY MD Unavailable Unavailable EUGENE, BRODY MD Unavailable Unavailable EUGENE, BRODY MD Unavailable Unavailable EUGENE, BRODY MD Unavailable Unavailable EUGENE, MARY GRACE MD Unavailable Unavailable EUGENE, BRODY MD Unavailable Unavailable EUGENE, MARY GRACE MD Unavailable Unavailable EUGENE, MARY GRACE MD Unavailable Unavailable EUGENE, BRODY MD Unavailable Unavailable EUGENE, BRODY MD Unavailable Unavailable EUGENE, MARY GRACE MD Unavailable Unavailable EUGENE, MARY GRACE MD Unavailable Unavailable EUGENE, MARY GRACE MD Unavailable Unavailable EUGENE, BRODY MD Unavailable Unavailable EUGENE, BRODY MD Unavailable Unavailable EUGENE, MARY GRACE MD Unavailable Unavailable EUGENE, MARY GRACE PARKS Unavailable Unavailable EUGENE, BRODY MD Unavailable Unavailable EUGENE, MARY GRACE PARKS Unavailable Unavailable EUGENE, MARY GRACE MD Unavailable Unavailable EUGENE, BRODY MD Unavailable Unavailable EUGENE, MARY GRACE PARKS Unavailable Unavailable EUGENE, MARY GRACE PARKS Unavailable Unavailable EUGENE, MARY GRACE PARKS Unavailable Unavailable EUGENE, MARY GRACE PARKS Unavailable Unavailable EUGENE, BRODY MD Unavailable Unavailable EUGENE, BRODY MD Unavailable Unavailable EUGENE, MARY GRACE MD Unavailable Unavailable EUGENE, MARY GRACE MD Unavailable Unavailable EUGENE, MARY GRACE PARKS Unavailable Unavailable EUGENE, MARY GRACE PARKS Unavailable Unavailable EUGENE, MARY GRACE PARKS Unavailable Unavailable EUGENE, BRODY MD Unavailable Unavailable EUGENE, MARY GRACE PARKS Unavailable Unavailable EUGENE, MARY GRACE PARKS Unavailable Unavailable EUGENE, BRODY MD Unavailable Unavailable [place], Christopher DO Unavailable Unavailable Lisseth, Christopher DO Unavailable Unavailable [place], Christopher DO Unavailable Unavailable [place], Christopher DO Unavailable Unavailable [place], Christopher DO Unavailable Unavailable Lisseth, Christopher DO [...] by Article 27-F of the [facility] Public Health law. If you continue you may have access to information: Regarding HIV / AIDS; Provided by facilities licensed or operated by the [facility] Office of Mental Health; or Provided by the [facility] Office for People With Developmental Disabilities. If such information is present, then the following [facility] mandated warning applies: This information has [...] law may result in a fine or mcfp sentence or both. A general authorization for the release of medical or other information is NOT sufficient authorization for further disc losure. Family History Family Member Name Family Member Gender Family Member Status Date o f Status Description Data Source(s) Unknown Male Problem [facility] ([facility]) Unknown Male Problem [facility] ([facility]) Unknown Female Problem MEDENT ([facility]) Encounters Encounter Providers Location Date Indications Data Source(s ) Office Visit Attender: Marek Wagoner/Chip/Varghese/Lisa baltazar 03/27/2021 02:30:00 PM EDT [facility] ([facility] Outpatient Attender: Blanche POWER Main Office 03/23/2021 12:45:00 PM EDT [facility] ([facility] Outpatient Attender: Milton Ocampo 03/08/2021 11:00:00 AM EDT MEDENT ([facility] ) Outpatient Attender: MARY GRACE KEENANSJDorisELIUD 01:16:01 PM EDT - 03/03/2021 02:05:15 PM EDT [facility] Outpatient Attender: Milton Arboleda 03/03/2021 11:40:00 AM EDT MEDENT ([facility] ) Outpatient Attender: Shaileshluna Arboleda 02/28/2021 10:40:00 AM EDT MEDENT ([facility] ) Office Visit Attender: Marek Wagoner/Chip/Varghese/Re indl 02/21/2021 09:15:00 AM EDT [facility] ([facility]) Outpatient Attender: Milton Montanez DO Lisseth Dominguezkaylabasil 01/31/2021 01:40:00 PM EDT MEDENT ([facility] ) Outpatient Attender: Marek Wagoner/Chip/Varghese/Re indl 01/17/2021 02:00:00 PM EDT [facility] ([facility]) Outpatient Attender: MARY GRACE LYMAN-SJP.ELIUD 12:00:00 AM EDT - 12/21/2020 10:26:08 AM EDT [facility] Outpatient Attender: Marek Wagoner/Chip/Varghese/Re indl 12/20/2020 09:15:00 AM EDT [facility] ([facility]) Outpatient Attender: Marek Wagoner/Chip/Varghese/Re indl 12/15/2020 10:45:00 AM EDT [facility] ([facility] Outpatient Attender: Nader Hurt 11/10 11:30:00 AM EDT MEDENT ([facility] ) Outpatient Attender: MARY GRACE KEENANSJP.ELIUD 10/28/2020 12:00:00 AM EDT [facility] Outpatient Attender: Marek Wagoner/Chip/Varghese/Re indl 10/07/2020 02:15:00 PM EDT MEDENT ([facility] ) Outpatient Attender: Marek Wagoner/Chip/Varghese/Re indl 09/22/2020 09:00:00 AM EDT MEDENT ([facility], ) Outpatient Attender: Nader Hurt 09/08 10:00:00 AM EDT MEDENT ([facility] ) Immunizations Vaccine Date Status Description Data Source(s) COVID-19 VACCINE Moderna 10/07/2020 12:00:00 AM EDT completed [facility] Vaccine Series Complete: YESThis Data wa s Submitted to [facility] [employer]. COVID-19 VACCINE Moderna 09/09/2020 12:00:00 AM EDT completed [facility] Vaccine Series Complete: NOThis Data was Submitted to [facility] [employer]. Medications Medication Brand Name Start Date Product Form Dose Route Admi nistrative Instructions Pharmacy Instructions Status Indications Reaction Description Data Source(s) ferrous sulfate 325 MG Oral Tablet Ferrous Sulfate 03/08/2021 12:00 :00 AM EDT ORAL active MEDENT ([facility]) Spironolactone 25 MG Oral Tablet Spironolactone 03/08/2021 12:00:00 A M EDT ORAL active MED[facility] ([facility]) Lactulose 667 MG/ML Oral Solution Lactulose Encephalop athy 10 GM/15ML SOLN Lactulose Encephalopathy 10 GM/15ML SOLN 03/02/2021 12:00:00 AM EDT active [facility] Lactulose 667 MG/ML Oral Solution Lactulose 03/01/2021 12:00:00 AM EDT ORAL active MED[facility] ([facility]) Furosemide 40 MG Oral Tablet furosemide (LASIX) 40 MG tablet furosemide (LASIX) 40 MG tablet 02/28/2021 12:00:00 AM EDT active [facility] Furosemide 40 MG Oral Tablet Furosemide 02/28/2021 12:00:00 AM EDT active [facility] ([facility]) atorvastatin 20 MG Oral Tablet atorvastatin (LIPITOR) 20 MG tablet atorvastatin (LIPITOR) 20 MG tablet 02/24/2021 12:00:00 AM EDT active [facility] Metoprolol Tartrate 25 MG Oral Tablet me toprolol tartrate (LOPRESSOR) 25 MG tablet metoprolol tartrate (LOPRESSOR) 25 MG tablet 02/24/2021 12:0 0:00 AM EDT 25 mg Oral active Take 25 mg by mo uth daily [facility] Acetaminophen 325 MG / Oxycodone Hydrochloride 5 MG Or al Tablet [Percocet] Percocet 02/08/2021 12:00:00 AM EDT ORAL completed MEDENT ([facility], ) Metoprolol Tartrate 25 MG Oral Tablet Metoprolol Tartrate 12:00:00 AM EDT ORAL active [facility]) apixaban 5 MG Oral Tablet Apixaban (ELIQUIS) 5 MG TABS tablet Apixaban (ELIQUIS) 5 MG TABS tablet 01/31/2021 12:00:00 AM EDT 5 mg Oral active Paroxysmal atrial fibrillation Take 1 tablet (5 mg total) by mouth 2 (t wo) times a day [facility] Paroxysmal atrial fibrillation Methylprednisolone 4 MG Oral Tablet Methylprednisolone 12/25 12:00:00 AM EDT active MEDENT ([facility], ) Cyclobenzaprine hydrochloride 10 MG Oral Tablet cyclobenzaprine (FLEXERIL) 10 MG tablet cyclobenzaprine (FLEXERIL) 10 MG tablet 01/02/2021 12:00:00 AM EDT active [facility] Cyclobenzaprine hydrochloride 10 MG Oral Tablet Cyclobenzapr ine HCL 01/02/2021 12:00:00 AM EDT ORAL active M EDENT ([facility], ) Lisinopril 2.5 MG Oral Tablet lisinopril (PRINIVIL,ZES TRIL) 2.5 MG tablet lisinopril (PRINIVIL,ZESTRIL) 2.5 MG tablet 12/21/2020 12:00:00 AM EDT 2.5 mg Oral aborted Type 2 diabetes mellitus without complication, without long- term current use of insulinHypertension, unspecified type Take 1 tablet (2.5 mg total) by mouth daily [facility] Type 2 diabetes mellitus without complic ation, without long-term current use of insulin Hypertension, unspecified type apixaban 5 MG Oral Tablet Apixaban (ELIQUIS) 5 MG TABS tablet Apixaban (ELIQUIS) 5 MG TABS tablet 12/15/2020 12:00:00 AM EDT 5 mg Oral active Take 1 tablet (5 mg total) by mouth 2 (two) times a day [facility] Suprep Bowel Prep Kit Suprep [...] mouth 2 ( two) times a day [facility] Hypertension, unspecified type Paroxysmal atrial fibrillation Lisinopril 10 MG Oral Tablet lisinopril (PRINIVIL,ZEST RIL) 10 MG tablet lisinopril (PRINIVIL,ZESTRIL) 10 MG tablet 10/28/2020 12:00:00 AM EDT 5 mg Oral aborted Take 0.5 tablets (5 mg total) by mouth daily [facility] atorvastatin 20 MG Oral Tablet Atorvastatin Calcium 09/01/2020 1 2:00:00 AM EDT ORAL active MED[facility] ( [facility]) MAGNESIUM GLUCONATE 500 MG Oral Tablet Magnesium Gluconate 0 09/01/2020 12:00:00 AM EDT active [facility] Metformin hydrochloride 1000 MG Oral Tablet Metformin HCL 09/01/2020 12:00:00 AM EDT ORAL active [facility]) ropinirole 4 MG Oral Tablet Ropinirole HCL 09/01/2020 12:00:00 AM EDT ORAL active MED[facility] ([facility]) atorvastatin 40 MG Oral Tablet atorvastatin (LIPITOR) 40 MG tablet atorvastatin (LIPITOR) 40 MG tablet 08/30/2020 12:00:00 AM EDT 40 mg Oral active Take 40 mg by mouth daily [facility] Magnesium Oxide 500 MG Oral Tablet Magnesium Oxide 500 MG TABS Magnesium Oxide 500 MG TABS 08/30/2020 12:00:00 AM EDT 1 {tbl} Oral activ e Take 1 tablet by mouth daily [facility] Metformin hydrochloride 1000 MG Oral Tab let metFORMIN (GLUCOPHAGE) 1000 MG tablet metFORMIN (GLUCOPHAGE) 1000 MG tablet 08/30/2020 12:00:00 AM EDT 1000 mg Oral active Take 1,000 mg by mouth 2 (two) times a day with meals [facility] ropinirole 4 MG Oral Tablet rOPINIRole (REQUIP) 4 MG t ablet rOPINIRole (REQUIP) 4 MG tablet 08/30/2020 12:00:00 AM EDT 4 mg Oral active Take 4 mg by mouth nightly [facility] Pravastatin Sodium 10 MG Oral Tablet pravastatin (PRAV ACHOL) 10 MG tablet pravastatin (PRAVACHOL) 10 MG tablet 01/13/2020 12:00:00 AM EDT 10 mg Oral aborted Hypertension, unspecified ty peParoxysmal atrial fibrillationHyperlipidemia, unspecified hyperlipidemia type Take 1 tablet (10 mg total) by mouth nightly [facility] Hypertension, unspecified type Paroxysmal atrial fibrillation Hyperlipidemia, unspecified hyperlipidem ia type Metoprolol Tartrate 25 MG Oral Tablet me toprolol tartrate (LOPRESSOR) 25 MG tablet metoprolol tartrate (LOPRESSOR) 25 MG tablet 12/16/2019 12:0 0:00 AM EDT 25 mg Oral aborted Take 1 tablet (2 5 mg total) by mouth 2 (two) times a day [facility] Lisinopril 10 MG Oral Tablet lisinopril (PRINIVIL,ZEST RIL) 10 MG tablet lisinopril (PRINIVIL,ZESTRIL) 10 MG tablet 11/12/2019 12:00:00 AM EDT 10 mg Oral aborted Take 10 mg by mouth daily [facility] Hydrochlorothiazide 25 MG Oral Tablet hy drochlorothiazide (HYDRODIURIL) 25 MG tablet hydrochlorothiazide (HYDRODIURIL) 25 MG tablet 020 12:00:00 AM EDT 12.5 mg Oral aborted Take 12.5 mg by mouth daily [facility] Metformin hydrochloride 500 MG Oral Tablet metFORMIN ( GLUCOPHAGE) 500 MG tablet metFORMIN (GLUCOPHAGE) 500 MG tablet 10/24/2019 12:00:00 AM EDT 500 m g Oral aborted Take 500 mg by mouth 4 (four ) times a day [facility] Insurance Providers Payer name Policy type / Coverage type Policy ID Covered green party ID Covered green party's relationship to lopez Policy [place] Plan Information [place] [place] [employer] Part B [id number] Family Dependent U [id number] [place] [facility] [id number] Family Dependent U [id number] [place] [facility] [id number] Family Dependent U [id number] [place] [facility] [id number] Family Dependent U [id number] [place] [employer] Part [employer] [id number] Family Dependent U [id number] [place] [employer] Part [employer] [id number] Family Dependent U [id number] [place] [employer] Part [employer] [id number] Family Dependent U [id number] BS [place] [facility] Part B [id number] Family Dependent U [id number] BS [place] [facility] Part B [id number] Family Dependent U [id number] MVP (pr) Commercial [id number] Self [id number] Stella (WC) Workers Compensation [id number] Self [id number] [facility] [id number] SP [id number] [facility] [id number] SP [id number] [employer] Commercial [id number] Self [employer] Commercial [id number] Self [id number] BS [place] [employer] Commercial [id number] Self [id number] BS [place] [employer] Commercial [id number] Self [employer] [id number] Deborah PYN [id number] [employer] [id number] [employer] B [id number] S PYN [id number] BS [place] Commercial [id number] Self P [id number] BS [place] Commercial [id number] Self P [id number] BS [place] Commercial [id number] Self P [id number] [employer] B [id number] S PYN [id number] [facility] O [id number] S 80 [id number] BCBS [place] PPO 302/307 [id number] SP [id number] [place] [employer]BS Health Maintenance Organization (HMO) [id number] Self [id number] BCBS OF [place] 306/806 [id number] SP [id number] BS [place] [facility] Commercial [id number] Self P [id number] BCBS [place] PPO 302/307 [id number] SP [id number] BCBS [place] PPO 302/307 [id number] SP [id number] BCBS OF [place] 306/806 [id number] SP [id number] Problems, Conditions, and Diagnoses Code Display Name Description Problem Type Effective Dates Data Source(s) E11.9 Type 2 diabetes mellitus without complic ations Type 2 diabetes mellitus without complic Diagnosis 12/21/2020 09:25:05 AM EDT [facility] G47.33 Obstructive sleep apnea (adult) (pediatr ic) Obstructive sleep apnea (adult) (pediatr Diagnosis 12/21/2020 09:25:05 AM EDT [facility] I10 Essential (primary) hypertension Essential (primary) h ypertension Diagnosis 12/21/2020 09:25:05 AM EDT [facility] K21.9 Gastro-esophageal reflux disease without esophagitis Gastro-esophageal reflux disease without Diagnosis 12/21/2020 09:25:05 AM EDT [facility] F32.9 Major depressive disorder, single episod e, unspecified Major depressive disorder, single episod Diagnosis 12/21/2020 09:25:05 AM EDT [facility] F41.9 Anxiety disorder, unspecified Anxiety disorder, unspec ified Diagnosis 12/21/2020 09:25:05 AM EDT [facility] E78.5 Hyperlipidemia, unspecified Hyperlipidemia, unspecifie d Diagnosis 12/21/2020 09:25:05 AM EDT [facility] I48.0 Paroxysmal atrial fibrillation Paroxysmal atrial fibri llation Diagnosis 12/21/2020 09:25:05 AM EDT [facility] K74.60 Cirrhosis Cirrhosis [id number] 03/03/2021 12:00:00 AM ED T [facility] Surgeries/Procedures Procedure Description Date Indications Data Source(s) OFFICE OUTPATIENT VISIT 5 MINUTES 03/23/2021 12:00:00 AM EDT MED[facility] ([facility]) OFFICE OUTPATIENT VISIT 25 MINUTES 03/08/2021 12:00:00 AM EDT MEDGIL ([facility]) OFFICE OUTPATIENT VISIT 25 MINUTES 03/03/2021 12:00:00 AM EDT MEDGIL ([facility]) OFFICE OUTPATIENT VISIT 25 MINUTES 02/28/2021 12:00:00 [facility] TROPONIN QUANTITATIVE <td>TROPONIN I</td><td>Routine</td><td>02/23/2021</td><td></td><td> </td> 02/23/2021 12:00:00 AM EDT [facility] BLOOD COUNT COMPLETE AUTO&AUTO DIFRNTL WBC COUNT <td>C BC AND DIFFERENTIAL</td><td>Routine</td><td>02/23/2021</td><td></td><td> </td> 02/23/2021 12:00:00 AM EDT [facility] THYROID STIMULATING HORMONE TSH <td>TSH</td><td>Routine</td><td>02/23/2021</td><td></td><td> </td> 02/23/2021 12:00:00 AM EDT [facility] HEPATIC FUNCTION PANEL <td>HEPATIC FUNCTION PANEL</td><td>Routine</td><td>02/23/2021</td><td></td><td> </td> 02/23/2021 12:00:00 AM EDT [facility] BASIC METABOLIC PANEL CALCIUM TOTAL <td>BASIC METABOLI C PANEL</td><td>Routine</td><td>02/23/2021</td><td></td><td> </td> 02/23/2021 12:00:00 AM [facility] ARTHROSCOPY SHOULDER DISTAL CLAVICULECTOMY 02/08/2021 12:00:00 AM EDCleo BARBA ([facility], ) SHOULDER SCOPE BONE SHAVING 02/08/2021 12:00:00 AM EDCleo BARBA ([facility], ) ARTHROSCOPY SHOULDER ROTATOR CUFF REPAIR 02/08/2021 12 :00:00 AM SHAYAN BARBA ([facility], ) ECG ROUTINE ECG W/LEAST 12 LDS W/I&R 01/31/2021 12:00: 00 AM EDCleo BARBA ([facility]) OFFICE OUTPATIENT VISIT 25 MINUTES 01/31/2021 12:00:00 AM EDCleo BARBA ([facility]) OFFICE OUTPATIENT VISIT 25 MINUTES 01/17/2021 12:00:00 AM EDCleo BARBA ([facility], ) OFFICE OUTPATIENT VISIT 15 MINUTES 12/20/2020 12:00:00 AM EDCleo BARBA ([facility], ) OFFICE OUTPATIENT VISIT 25 MINUTES 12/20/2020 12:00:00 AM EDCleo MEDGIL ([facility], ) Inject/Drain Arthrocentesis Major Joint/Bursa/Ganglion Cyst 12/15/2020 12:00:00 AM EDCleo BARBA ([facility]) OFFICE OUTPATIENT VISIT 25 MINUTES 12/15/2020 12:00:00 AM [facility] OFFICE OUTPATIENT VISIT 25 MINUTES 11/10/2020 12:00:00 AM [facility]T [facility] Colonoscopy Flexible Proximal To Splenic Flexure W/Biopsy Si ngle/ 11/09/2020 12:00:00 AM EDT [facility] Colonoscopy 11/09/2020 12:00:00 AM [facility] ECG ROUTINE ECG W/LEAST 12 LDS W/I&R <td>POCT AMB EKG</td><td>Routine</td><td>10/28/2020</td><td> Paroxysmal atrial fibrillation Hypertension, unspecified type</td><td></td> 10/28/2020 12:00:00 AM EDT Hypertension, unspecified typeParoxysmal atrial fibrillation [facility] Hypertension, unspecified type Paroxysmal atrial fibrillation OFFICE OUTPATIENT VISIT 15 MINUTES 10/07/2020 12:00:00 AM ED[facility] OFFICE OUTPATIENT NEW 45 MINUTES 09/22/2020 [facility] Trans Care SRV W/I 14D Of DC, Comm W/I 2 Dys Med Rec 09/08/2020 12:00:00 AM EDT [facility] ) Results ID Date Data Source [id number] 03/14/2021 11:38:00 PM EDT [facility] Name Value Range Interpretation Code Description Data Yuridia rce(s) Supporting Document(s) ABG Partial Pressure Co2 37.6 mmHg 35.0-45.0 MEDEN T ([facility]) ABG pH (Arterial) 7.449 units 7.350-7.450 [facility] ABG Partial Pressure O2 78.1 mmHg 75.0-100.0 MEDEN T ([facility]) ABG Hco3 25.5 meq/L 22.0-26.0 [facility] ABG Total Co2 26.6 meq/L 22.0-29.0 [facility] ([facility]) ABG Base Excess 1.6 [facility] ([facility]) ABG O2 Saturation 95.4 % 95.0-99.0 [facility] ([facility]) ABG Standard Hco3 25.9 meq/L 22.0-26.0 [facility] ([facility]) ID Date Data Source [id number] 03/14/2021 11:36:00 PM EDT [facility] ([facility]) Name Value Range Interpretation Code Description Data Yuridia rce(s) Supporting Document(s) Influenza A Amplification Laboratory test result MED[facility] ([facility]) Negative results do not preclude influen za or RSV virus infection and should not be used as the sole basis for treatment or other patient management decisions. Influenza B Amplification Laboratory test result [facility] ([facility]) Negative results do not preclude influen za or RSV virus infection and should not be used as the sole basis for treatment or other patient management decisions. RSV Amplification Laboratory test result [facility] ([facility]) Negative results do not preclude influen za or RSV virus infection and should not be used as the sole basis for treatment or other patient management decisions. Laboratory test finding (navigational concept) Laboratory test result MED[facility] ([facility]) A false negative result may occur [...] pathogens. DISCLAIMER: Testing was performed using the [employer] SARS-CoV-2 test. This test was developed and its performance characteristics determined by [employer]. This test has not been FDA cleared [...] or revoked sooner. ID Date Data Source [id number] 03/14/2021 11:36:00 PM [facility] Name Value Range Interpretation Code Description Data Yuridia rce(s) Supporting Document(s) SARS coronavirus 2 RNA [Presence] in Res piratory specimen by KANA with probe detection NEGATIVE [facility] This lab was ordered by [facility] a nd reported by [facility]. ID Date Data Source [id number] 03/14/2021 09:10:00 PM EDT [facility] Name Value Range Interpretation Code Description Data Yuridia rce(s) Supporting Document(s) Appearance, Urine RFX Laboratory test result [facility] Color, Urine RFX Laboratory test result [facility] PH,Urine RFX 5.0 units 5.0-9.0 [facility] ([facility] [facility]) Specific [place] [facility] Auto RFX 1.029 1.002-1.035 [facility] ([facility]) Protein, Urine Auto RFX Laboratory test result [facility] ([facility] Glucose, Urine (Ua) Auto RFX Laboratory test result [facility] ([facility] Ketone, Urine Auto RFX Laboratory test result [facility] ([facility] Nitrite, Urine Auto RFX Laboratory test result [facility] ([facility] Urobilinogen, Urine Auto RFX 4.0 mg/dL 0.0-2.0 [facility] ([facility] Bilirubin, Urine Auto RFX Laboratory test result [facility] ([facility]) WBC, Urine Auto RFX 5 /HPF 0-3 [facility] ([facility] Blood, Urine Blood RFX Laboratory test result [facility] ([facility]) Leukocyte Esterase Ur Auto RFX Laboratory test result [facility] ([facility]) Squam Epithelial Cell Ur Aurfx 0 /HPF 0-6 [facility] ([facility] RBC, Urine Auto RFX 0 /HPF 0-3 [facility] ([facility]) Bacteria, Urine Auto RFX Laboratory test result [facility] ([facility]) Hyaline Cast, Urine Auto RFX 0 /LPF 0-1 M EDENT ([facility]) Mucus, Urine RFX Laboratory test result [facility] ([facility]) ID Date Data Source [id number] 03/14/2021 09:10:00 PM EDT [facility] ([facility]) Name Value Range Interpretation Code Description Data Yuridia rce(s) Supporting Document(s) aPTT in Blood by Coagulation assay 37.8 s 25.9-37.0 [facility]) ID Date Data Source [id number] 03/14/2021 09:10:00 PM EDT [facility] ([facility]) Name Value Range Interpretation Code Description Data Yuridia rce(s) Supporting Document(s) Prothrombin Time 14.5 s 12.7-14.5 [facility] ([facility]) Inr 1.09 [facility] ([facility]) THERAPUTIC HUMAN INR VALUES INDICATIONS NORMAL RANGES PROPHYLAXIS/TREATMENT OF: VENOUS THROMBOSIS 2.0-3.0 PULMONARY EMBOLISM 2.0-3.0 PREVENTION OF SYSTEMIC EMBOLISM FROM: TISSUE HEART VALVES 2.0-3.0 ACUTE MYOCARDIAL INFARCTION 2.0-3.0 VALVULAR HEART DISEASE 2.0-3.0 ATRIAL FIBRILLATION 2.0-3.0 MECHANICAL VALVES(HIGH RISK) 2.5-3.5 RECURRENT MYOCARDIAL INFARCTION 2.5-3.5 ID Date Data Source [id number] 03/14/2021 09:10:00 PM EDT [facility] ([facility]) Name Value Range Interpretation Code Description Data Yuridia rce(s) Supporting Document(s) White Blood Count 10.5 10 4.0-10.0 [facility] ([facility]) Red Blood Count 4.10 10 4.30-6.10 [facility] ([facility]) Hemoglobin 12.2 g/dL 13.5-17.5 [facility] ([facility]) Mean Corpuscular Hemoglobin 29.8 pg 27.0-33.0 [facility] ([facility]) Hematocrit 38.1 % 42.0-52.0 [facility] Mean Corpuscular Volume 92.9 fl 80.0-96.0 [facility] ([facility]) Platelet Count, Automated 188 10 150-450 MED[facility] NT ([facility]) Mean Corpuscular HGB Conc 32.0 g/dL 32.0-36.5 MED[facility] NT ([facility]) Red Cell Distribution Width 14.3 % 11.5-14.5 [place] [facility] ([facility]) [place] % 11.4 % 2.0-8.0 [facility]) Lymph % 22.6 % 24.0-44.0 [facility] Neutrophils % 62.5 % 36.0-66.0 [facility] ([facility]) Baso % 1.0 % 0.0-1.0 [facility]) Eos % 2.1 % 0.0-3.0 [facility] Neutrophils # 6.6 10 1.5-8.5 [facility] ([facility]) Immature Granulocyte % 0.4 % 0-3.0 [facility] ([facility]) Nucleated Red Blood Cell % 0.0 % 0-0 MED [facility] ([facility]) Eos # 0.2 10 0.0-0.5 [facility]) Lymph # 2.4 10 1.5-5.0 [facility] [place] # 1.2 10 0.0-0.8 [facility] Baso # 0.1 10 0.0-0.2 [facility] ID Date Data Source [id number] 03/14/2021 09:10:00 PM EDT [facility] ([facility]) Name Value Range Interpretation Code Description Data Yuridia rce(s) Supporting Document(s) Lipoprotein lipase [Enzymatic activity/volume] in Serum or P lasma 411 U/L 73-393 [facility] ([facility]) Lactate [Mass/volume] in Serum or Plasma 0.9 mmol/L 0.4-2.0 [facility] ([facility]) Y/N query for Sepsis Lactate Rule: Y Ammonia [Mass/volume] in Blood 40 uMOL/L [facility] ([facility]) ID Date Data Source [id number] 03/14/2021 09:10:00 PM EDT [facility] ([facility]) Name Value Range Interpretation Code Description Data Yuridia rce(s) Supporting Document(s) Glucose, Fasting 91 mg/dL 70-100 [facility] ([facility]) Blood Urea Nitrogen 17 mg/dL 7-18 [facility] ([facility]) Creatinine For GFR 0.74 mg/dL 0.70-1.30 [facility] ([facility]) Glomerular Filtration Rate Laboratory test result [facility] ([facility]) <content>Units are mL/min/1.73 m2</content>
<content></content>
<content>Chronic Kidney Disease Staging per NKF:</content>
<content></content>
<content>Stage I & II GFR >=60 Normal to Mildly Decreased</content>
<content>Stage III GFR 30- 59 Moderately Decreased</content>
<content>Stage IV GFR 15-29 Severely Decreased</content>
<content>Stage V GFR <15 Very Little GFR Left</content>
<content>ESRD GFR <15 on CABLE SPLICER HELPER</content>
<content></content> Sodium Level 140 meq/L 136-145 [facility] ([facility]) Potassium Serum 3.9 meq/L 3.5-5.1 [facility] ([facility]) Carbon Dioxide Level 28 meq/L 21-32 [facility] ([facility]) Anion Gap 6 meq/L 8-16 [facility]) Chloride Level 106 meq/L 98-107 [facility] ([facility]) Calcium Level 9.3 mg/dL 8.5-10.1 [facility] ([facility]) ID Date Data Source [id number] 03/14/2021 09:10:00 PM EDT [facility] ([facility]) Name Value Range Interpretation Code Description Data Yuridia rce(s) Supporting Document(s) Ast/Sgot 21 U/L 7-37 [facility] ([facility]) Alkaline Phosphatase 70 U/L 45-117 [facility] ([facility]) Alt/SGPT 30 U/L 12-78 [facility] ([facility]) Bilirubin,Direct 0.4 mg/dL 0.0-0.2 [facility] ([facility]) Bilirubin,Total 1.0 mg/dL 0.2-1.0 [facility] ([facility]) Albumin 3.3 GM/DL 3.2-5.2 [facility] ([facility]) Total Protein 7.4 GM/DL 6.4-8.2 [facility] ([facility]) Albumin/Globulin Ratio 0.8 [facility] ([facility]) ID Date Data Source [id number] 03/14/2021 09:10:00 PM EDT [facility] ([facility]) Name Value Range Interpretation Code Description Data [facility](s) Supporting Document(s) CPK Creatine Phosphokinase 128 U/L 39-308 [facility] ([facility]) CK-MB Value Mass 2.8 ng/mL [facility] ([facility]) MB/CK Relative Index 2.19 [facility] ([facility]) <content>DIAGNOSIS CRITERIA</content>
<content>MMB ng/ml Relative Index (RI)</content>
<content>NON-AMI < or = 5 N/A</content>
<content>ENRIQUEZ ZONE > 5 < or = 4</content>
<content>AMI > 5 > 4</content>
<content></content> Troponin I Laboratory test result [facility] <content>Troponin I Reference Interval f or Siemens Moffett LOCI:</content>
<content></content>
<content>99th Percentile= 0.00-0.045 ng/ml</content>
<content></content>
<content>Risk Stratification:</content>
<content><= 0.10 ng/ml Decreased Risk for Adverse Clinical</content>
<content>Events.</content>
<content>0.10-1.50 ng/ml Increased Risk for Adverse Clinical</content>
<content>Events. Evaluation of additional</content>
<content>criterion and/or repeat testing in 2-6</content>
<content>hours is suggested to rule out myocardial</content>
<content>damage.</content>
<content>>= 1.50 ng/ml Indicative of Myocardial Injury.</content>
<content></content> ID Date Data Source [id number] 03/08/2021 11:38:00 AM EDT [facility] ([facility]) Name Value Range Interpretation Code Description Data Yuridia rce(s) Supporting Document(s) Creatinine 0.8 mg/dL 0.6-1.3 [facility]) Glucose [Mass/volume] in Serum or Plasma 108 mg/dL 74-99 [facility] ([facility]) 100-125 mg/dL PRE-DIABETES/FASTING >126 mg/dL DIABETES/FASTING Urea nitrogen [Mass/volume] in Serum or Plasma 18 mg/dL 7-18 [facility] ([facility]) Sodium [Moles/volume] in Serum or Plasma 136 meq/L 136-145 [facility] ([facility]) Chloride [Moles/volume] in Serum or Plasma 100 meq/L 98-107 [facility] ([facility]) Potassium [Moles/volume] in Serum or Plasma 4.3 meq/L 3.5-5.1 [facility] ([facility]) Calcium [Mass/volume] in Serum or Plasma 9.5 mg/dL 8.5-10.1 [facility] ([facility]) Carbon dioxide, total [Moles/volume] in Serum or Plasma 31 meq/L 21 -32 [facility] ([facility]) Glomerular filtration rate/1.73 sq M pre dicted among non-blacks [Volume Rate/Area] in Serum or Plasma by Creatinine-based formula (MDRD) Laboratory test result [facility] ([facility] ) Glomerular filtration rate/1.73 sq M pre dicted among blacks [Volume Rate/Area] in Serum or Plasma by Creatinine-based formula (MDRD) Laboratory test result [facility] ([facility]) <content>CHRONIC KIDNEY DISEASE STAGING PER NKF</content>
<content></content>
<content>STAGE I & II GFR >= 60 NORMAL TO MILDLY DECREASED</content>
<content>STAGE III GFR 30-59 MODERATELY DECREASED</content>
<content>STAGE IV GFR 15-29 SEVERELY DECREASED</content>
<content>STAGE V GFR <15 VERY LITTLE GFR LEFT</content>
<content>ESRD GFR <15 ON CABLE SPLICER HELPER</content>
<content></content> ID Date Data Source [id number] 03/08/2021 11:38:00 AM EDT [facility] ([facility]) Name Value Range Interpretation Code Description Data Yuridia rce(s) Supporting Document(s) Magnesium 1.9 mg/dL 1.8-2.4 [facility]) ID Date Data Source [id number] 03/03/2021 12:14:00 PM EDT [facility] ([facility]) Name Value Range Interpretation Code Description Data Yuridia rce(s) Supporting Document(s) Glucose [Mass/volume] in Serum or Plasma 175 mg/dL 74-99 [facility] ([facility]) 100-125 mg/dL PRE-DIABETES/FASTING >126 mg/dL DIABETES/FASTING Creatinine 0.7 mg/dL 0.6-1.3 [facility] Urea nitrogen [Mass/volume] in Serum or Plasma 21 mg/dL 7-18 [facility] ([facility]) Chloride [Moles/volume] in Serum or Plasma 104 meq/L 98-107 [facility] ([facility]) Potassium [Moles/volume] in Serum or Plasma 4.4 meq/L 3.5-5.1 [facility] ([facility]) Sodium [Moles/volume] in Serum or Plasma 140 meq/L 136-145 [facility] ([facility]) Calcium [Mass/volume] in Serum or Plasma 9.2 mg/dL 8.5-10.1 [facility] ([facility]) Glomerular filtration rate/1.73 sq M pre dicted among non-blacks [Volume Rate/Area] in Serum or Plasma by Creatinine-based formula (MDRD) Laboratory test result [facility] ([facility] ) Carbon dioxide, total [Moles/volume] in Serum or Plasma 31 meq/L 21 -32 [facility] ([facility] Glomerular filtration rate/1.73 sq M pre dicted among blacks [Volume Rate/Area] in Serum or Plasma by Creatinine-based formula (MDRD) Laboratory test result [facility] ([facility]) <content>CHRONIC KIDNEY DISEASE STAGING PER NKF</content>
<content></content>
<content>STAGE I & II GFR >= 60 NORMAL TO MILDLY DECREASED</content>
<content>STAGE III GFR 30-59 MODERATELY DECREASED</content>
<content>STAGE IV GFR 15-29 SEVERELY DECREASED</content>
<content>STAGE V GFR <15 VERY LITTLE GFR LEFT</content>
<content>ESRD GFR <15 ON CABLE SPLICER HELPER</content>
<content></content> ID Date Data Source [id number] 03/03/2021 12:14:00 PM EDT [facility] ([facility]) Name Value Range Interpretation Code Description Data Yuridia rce(s) Supporting Document(s) Magnesium 1.5 mg/dL 1.8-2.4 [facility]) ID Date Data Source [id number] 02/28/2021 11:23:00 AM EDT [facility] ([facility]) Name Value Range Interpretation Code Description Data Yuridia rce(s) Supporting Document(s) Ferritin [Mass/volume] in Serum or Plasma 33 ng/mL 26-388 [facility] ([facility]) ID Date Data Source [id number] 02/28/2021 11:23:00 AM EDT [facility] ([facility]) Name Value Range Interpretation Code Description Data Yuridia rce(s) Supporting Document(s) Hepatitis B virus surface Ab [Presence] in Serum by Im maurice Laboratory test result [facility] ([facility] ) ID Date Data Source [id number] 02/28/2021 11:23:00 AM EDT [facility] ([facility]) Name Value Range Interpretation Code Description Data Yuridia rce(s) Supporting Document(s) Total Iron Binding Capacity 456 ug/dL 250-450 [place] [facility] ([facility]) Percent Saturation 11.4 % 19.7-50.0 [facility] ([facility]) Iron (Fe) 52 ug/dL 65-175 [facility] ([facility]) ID Date Data Source [id number] 02/28/2021 11:23:00 AM EDT [facility]) Name Value Range Interpretation Code Description Data Yuridia rce(s) Supporting Document(s) Ammonia [Mass/volume] in Blood 48 uMOL/L [facility] ([facility]) ID Date Data Source [id number] 02/28/2021 11:23:00 AM EDT [facility] ([facility]) Name Value Range Interpretation Code Description Data Yuridia rce(s) Supporting Document(s) Hepatitis B Surface Antigen Laboratory test result [facility] Hepatitis C Virus Kelly Index 0.1 INDEX [place] [facility] ([facility]) Negative Not infected with HCV, unless recent infection is suspected or other evidence exists to indicate HCV infection. Hepatitis B Core Antibody Igm Laboratory test result [facility] ([facility]) Hepatitis A Antibody Igm Laboratory test result [facility]) ID Date Data Source [id number] 02/28/2021 11:23:00 AM EDT [facility] Name Value Range Interpretation Code Description Data Yuridia rce(s) Supporting Document(s) Inr 1.18 [facility] ([facility]) THERAPUTIC HUMAN INR VALUES INDICATIONS NORMAL RANGES PROPHYLAXIS/TREATMENT OF: VENOUS THROMBOSIS 2.0-3.0 PULMONARY EMBOLISM 2.0-3.0 PREVENTION OF SYSTEMIC EMBOLISM FROM: TISSUE HEART VALVES 2.0-3.0 ACUTE MYOCARDIAL INFARCTION 2.0-3.0 VALVULAR HEART DISEASE 2.0-3.0 ATRIAL FIBRILLATION 2.0-3.0 MECHANICAL VALVES(HIGH RISK) 2.5-3.5 RECURRENT MYOCARDIAL INFARCTION 2.5-3.5 Prothrombin Time 15.4 s 12.7-14.5 [facility] ([facility]) ID Date Data Source [id number] 02/28/2021 11:21:00 AM EDT [facility] ([facility]) Name Value Range Interpretation Code Description Data Yuridia rce(s) Supporting Document(s) Hepatitis B virus surface Ab [Presence] in Serum by [facility] Laboratory test result [facility] ID Date Data Source [id number] 02/28/2021 11:20:00 AM EDT [facility] ([facility]) Name Value Range Interpretation Code Description Data Yuridia rce(s) Supporting Document(s) Erythrocytes [#/volume] in Blood by Automated count 4.40 x10*6/UL 4.2 0-6.30 [facility] ([facility] Leukocytes [#/volume] in Blood by Automated count 9.2 x10*3/UL 4.1-10 .9 [facility] ([facility] Hemoglobin [Mass/volume] in Blood 12.8 g/dL 12.0-18.0 [facility] ([facility] MCV 88.2 fL 80.0-97.0 [facility] ([facility]) Hematocrit [Volume Fraction] of Blood by Automated count 38.8 % 3 7.0-51.0 [facility] ([facility] MCH 29.1 pg 26.0-32.0 [facility] ([facility]) MCHC 33.0 g/dL 31.0-38.0 [facility] ([facility]) Erythrocyte distribution width [Ratio] by Automated count 13.9 % 11.6-13.7 [facility] ([facility]) MPV 8.5 FL 7.8-11.0 [facility] ([facility]) Lymph % 20.5 % 10.0-58.5 [facility] ([facility]) Platelets [#/volume] in Blood by Automated count 236 x10*3/UL 140-440 [facility] ([facility]) Neut % 74.4 % 37.0-92.0 [facility]) Mid % 5.1 % 1.7-9.3 [facility] Lymph # 1.9 x10*3/UL 0.6-4.1 [facility] ([facility]) Mid # 0.4 x10*3/UL 0.1-0.6 [facility] ([facility]) Neut # 6.9 x10*3/UL 2.0-7.8 [facility] ([facility]) ID Date Data Source [id number] 02/28/2021 11:20:00 AM EDT [facility] ([facility]) Name Value Range Interpretation Code Description Data Yuridia rce(s) Supporting Document(s) Glucose [Mass/volume] in Serum or Plasma 111 mg/dL 74-99 [facility] ([facility]) 100-125 mg/dL PRE-DIABETES/FASTING >126 mg/dL DIABETES/FASTING Urea nitrogen [Mass/volume] in Serum or Plasma 18 mg/dL 7-18 [facility] ([facility]) Potassium [Moles/volume] in Serum or Plasma 4.0 meq/L 3.5-5.1 [facility] ([facility]) Creatinine 0.7 mg/dL 0.6-1.3 [facility] ([facility]) Sodium [Moles/volume] in Serum or Plasma 140 meq/L 136-145 [facility] ([facility]) Carbon dioxide, total [Moles/volume] in Serum or Plasma 29 meq/L 21 -32 [facility] ([facility]) Calcium [Mass/volume] in Serum or Plasma 9.5 mg/dL 8.5-10.1 [facility] ([facility]) Chloride [Moles/volume] in Serum or Plasma 103 meq/L 98-107 [facility] ([facility]) Alkaline phosphatase isoenzyme [Units/volume] in Serum or Pl asma 63 mg/dL 46-116 [facility] ([facility]) Aspartate aminotransferase [Enzymatic activity/volume] in Serum or Plasma 27 U/L 15-37 [facility] ([facility] ) Total Bilirubin 0.7 mg/dL 0.2-1.0 [facility] Albumin [Mass/volume] in Serum or Plasma 3.3 g/dL 3.4-5.0 [facility] Alanine aminotransferase [Enzymatic activity/volume] in Seru m or Plasma 30 U/L 12-78 [facility] Proteinase 3 Ab [Units/volume] in Serum 7.6 g/dL 6.4-8.2 [facility] Glomerular filtration rate/1.73 sq M pre dicted among blacks [Volume Rate/Area] in Serum or Plasma by Creatinine-based formula (MDRD) Laboratory test result [facility] <content>CHRONIC KIDNEY DISEASE STAGING PER NKF</content>
<content></content>
<content>STAGE I & II GFR >= 60 NORMAL TO MILDLY DECREASED</content>
<content>STAGE III GFR 30-59 MODERATELY DECREASED</content>
<content>STAGE IV GFR 15-29 SEVERELY DECREASED</content>
<content>STAGE V GFR <15 VERY LITTLE GFR LEFT</content>
<content>ESRD GFR <15 ON CABLE SPLICER HELPER</content>
<content></content> Glomerular filtration rate/1.73 sq M pre dicted among non-blacks [Volume Rate/Area] in Serum or Plasma by Creatinine-based formula (MDRD) Laboratory test result [facility] A/G Ratio 0.77 CALC 1.00-1.90 [facility] ([facility]) ID Date Data Source [id number] 02/28/2021 11:20:00 AM EDT [facility] Name Value Range Interpretation Code Description Data Yuridia rce(s) Supporting Document(s) Urine Color Laboratory test result [facility] ([facility] Urine PH 6.0 units 5.0-9.0 [facility] ([facility]) Urine Appearance Laboratory test result [facility] Specific gravity of Urine 1.020 1.005-1.030 [facility] ([facility]) Urine Protein Laboratory test result 0-0 [facility] ([facility] Urine Blood Laboratory test result [facility] ([facility] Urine Leukocytes Laboratory test result [facility] ([facility]) Glucose [Presence] in Urine [facility] Urine Ketone Laboratory test result [facility] ([facility] Urine Nitrite Laboratory test result [facility] ([facility]) Urine Urobilinogen 0.2 mg/dL 0.2-1.0 [facility] ([facility]) Bilirubin.total [Mass/volume] in Serum or Plasma Laboratory test resu lt [facility] ([facility]) ID Date Data Source [id number] 02/23/2021 09:02:00 PM EDT [facility] ([facility]) Name Value Range Interpretation Code Description Data Yuridia rce(s) Supporting Document(s) Laboratory test finding (navigational concept) 0.01 ng/mL 0.00-0.08 [facility] ([facility]) ID Date Data Source [id number] 02/23/2021 06:29:00 PM EDT [facility] Name Value Range Interpretation Code Description Data Yuridia rce(s) Supporting Document(s) Laboratory test finding (navigational concept) 0.00 ng/mL 0.00-0.08 [facility] ([facility]) ID Date Data Source [id number] 02/23/2021 04:20:00 PM EDT [facility] Name Value Range Interpretation Code Description Data Yuridia rce(s) Supporting Document(s) Influenza A Amplification Laboratory test result [facility] ([facility]) Negative results do not preclude influen za or RSV virus infection and should not be used as the sole basis for treatment or other patient management decisions. Influenza B Amplification Laboratory test result [facility] Negative results do not preclude influen za or RSV virus infection and should not be used as the sole basis for treatment or other patient management decisions. RSV Amplification Laboratory test result [facility] Negative results do not preclude influen za or RSV virus infection and should not be used as the sole basis for treatment or other patient management decisions. Laboratory test finding (navigational concept) Laboratory test result [facility] ([facility]) A false negative result may occur [...] pathogens. DISCLAIMER: Testing was performed using the [employer] SARS-CoV-2 test. This test was developed and its performance characteristics determined by [employer]. This test has not been FDA cleared [...] or revoked sooner. ID Date Data Source [id number] 02/23/2021 04:20:00 PM EDT [place] [facility] Name Value Range Interpretation Code Description Data Yuridia rce(s) Supporting Document(s) SARS coronavirus 2 RNA [Presence] in Res piratory specimen by KANA with probe detection NEGATIVE [place] This lab was ordered by [facility] a nd reported by [facility]. ID Date Data Source [id number] 02/23/2021 04:12:00 PM EDT [facility] ([facility]) Name Value Range Interpretation Code Description Data Yuridia rce(s) Supporting Document(s) Hemoglobin 12.4 g/dL 13.5-17.5 [facility] White Blood Count 10.8 10 4.0-10.0 [facility] ([facility]) Red Blood Count 4.15 10 4.30-6.10 [facility] ([facility]) Hematocrit 38.4 % 42.0-52.0 [facility] ([facility]) Mean Corpuscular Volume 92.5 fl 80.0-96.0 [facility] ([facility]) Mean Corpuscular Hemoglobin 29.9 pg 27.0-33.0 ME DENT ([facility]) Red Cell Distribution Width 13.8 % 11.5-14.5 ME [facility] ([facility]) Mean Corpuscular HGB Conc 32.3 g/dL 32.0-36.5 MEDE NT ([facility]) Platelet Count, Automated 211 10 150-450 MED[facility] NT ([facility]) Neutrophils % 66.8 % 36.0-66.0 [facility] ([facility]) Lymph % 19.9 % 24.0-44.0 [facility] [place] % 9.5 % 2.0-8.0 [facility] Eos % 2.3 % 0.0-3.0 [facility] Immature Granulocyte % 0.4 % 0-3.0 [facility] ([facility]) Baso % 1.1 % 0.0-1.0 [facility] Neutrophils # 7.2 10 1.5-8.5 [facility] ([facility]) Nucleated Red Blood Cell % 0.0 % 0-0 MED ENT ([facility]) Lymph # 2.1 10 1.5-5.0 [facility]) Eos # 0.3 10 0.0-0.5 [facility] [place] # 1.0 10 0.0-0.8 [facility] Baso # 0.1 10 0.0-0.2 [facility] ID Date Data Source [id number] 02/23/2021 04:12:00 PM EDT [facility] ([facility]) Name Value Range Interpretation Code Description Data Yuridia rce(s) Supporting Document(s) CK-MB Value Mass 3.3 ng/mL [facility] ([facility]) CPK Creatine Phosphokinase 102 U/L 39-308 [facility] ([facility]) MB/CK Relative Index 3.24 [facility] ([facility]) <content>DIAGNOSIS CRITERIA</content>
<content>MMB ng/ml Relative Index (RI)</content>
<content>NON-AMI < or = 5 N/A</content>
<content>ENRIQUEZ ZONE > 5 < or = 4</content>
<content>AMI > 5 > 4</content>
<content></content> Troponin I Laboratory [facility] <content>Troponin I Reference Interval f or Siemens Moffett LOCI:</content>
<content></content>
<content>99th Percentile= 0.00-0.045 ng/ml</content>
<content></content>
<content>Risk Stratification:</content>
<content><= 0.10 ng/ml Decreased Risk for Adverse Clinical</content>
<content>Events.</content>
<content>0.10-1.50 ng/ml Increased Risk for Adverse Clinical</content>
<content>Events. Evaluation of additional</content>
<content>criterion and/or repeat testing in 2-6</content>
<content>hours is suggested to rule out myocardial</content>
<content>damage.</content>
<content>>= 1.50 ng/ml Indicative of Myocardial Injury.</content>
<content></content> ID Date Data Source [id number] 02/23/2021 04:12:00 PM EDT [facility] ([facility]) Name Value Range Interpretation Code Description Data Yuridia rce(s) Supporting Document(s) Alt/SGPT 32 U/L 12-78 [facility] ([facility]) Alkaline Phosphatase 67 U/L 45-117 [facility] ([facility]) Ast/Sgot 24 U/L 7-37 [facility] ([facility]) Bilirubin,Total 0.9 mg/dL 0.2-1.0 [facility] ([facility]) Bilirubin,Direct 0.3 mg/dL 0.0-0.2 [facility] ([facility]) Total Protein 7.2 GM/DL 6.4-8.2 [facility] ([facility]) Albumin/Globulin Ratio 0.8 [facility] ([facility]) Albumin 3.1 GM/DL 3.2-5.2 [facility]) ID Date Data Source [id number] 02/23/2021 04:12:00 PM EDT [facility] ([facility]) Name Value Range Interpretation Code Description Data Yuridia rce(s) Supporting Document(s) Lipoprotein lipase [Enzymatic activity/volume] in Serum or P lasma 249 U/L 73-393 [facility] ([facility]) Natriuretic peptide.B prohormone N-Terminal [Mass/volu me] in Serum or Plasma 303 pg/mL [facility] ([facility] ) Thyrotropin [Units/volume] in Serum or Plasma by Detec tion limit <= 0.05 mIU/L 1.080 uIU/ML 0.358-3.740 [facility] ([facility] ) Thyroxine (T4) free [Mass/volume] in Serum or Plasma 1.07 ng/dL 0.76- 1.46 [facility] ([facility]) ID Date Data Source [id number] 02/23/2021 04:11:00 PM EDT [facility] ([facility]) Name Value Range Interpretation Code Description Data Yuridia rce(s) Supporting Document(s) Laboratory test finding (navigational concept) 0.00 ng/mL 0.00-0.08 [facility] ([facility]) ID Date Data Source [id number] 02/23/2021 04:10:00 PM EDT [facility] ([facility]) Name Value Range Interpretation Code Description Data Yuridia rce(s) Supporting Document(s) Laboratory test finding (navigational concept) 145 mg/dL 70-105 [facility] ([facility]) Laboratory test finding (navigational concept) 37.0 % 38.0-51.0 [facility] ([facility]) Laboratory test finding (navigational concept) 138 meq/L 136-145 [facility] ([facility]) Laboratory test finding (navigational concept) 5.2 mg/dL 4.5-5.3 [facility] ([facility]) Laboratory test finding (navigational concept) 100 meq/L 98-109 [facility] ([facility]) Laboratory test finding (navigational concept) 4.3 meq/L 3.5-5.1 [facility] ([facility]) Laboratory test finding (navigational concept) 20 mg/dL 8-26 [facility] ([facility]) Laboratory test finding (navigational concept) 27.0 MM/L 23.0-27.0 [facility] ([facility]) Laboratory test finding (navigational concept) 0.8 mg/dL 0.6-1.3 [facility] ([facility]) ID Date Data Source [id number] 01/31/2021 02:23:00 PM EDT [facility] ([facility]) Name Value Range Interpretation Code Description Data Yuridia rce(s) Supporting Document(s) Glucose [Mass/volume] in Serum or Plasma 75 mg/dL 74-99 [facility] ([facility]) 100-125 mg/dL PRE-DIABETES/FASTING >126 mg/dL DIABETES/FASTING Sodium [Moles/volume] in Serum or Plasma 139 meq/L 136-145 [facility] ([facility]) Urea nitrogen [Mass/volume] in Serum or Plasma 14 mg/dL 7-18 [facility] ([facility]) Creatinine 0.7 mg/dL 0.6-1.3 [facility]) Chloride [Moles/volume] in Serum or Plasma 103 meq/L 98-107 [facility] ([facility]) Carbon dioxide, total [Moles/volume] in Serum or Plasma 30 meq/L 21 -32 [facility] ([facility]) Potassium [Moles/volume] in Serum or Plasma 4.5 meq/L 3.5-5.1 [facility] ([facility]) Alkaline phosphatase isoenzyme [Units/volume] in Serum or Pl asma 63 mg/dL 46-116 [facility] ([facility]) Calcium [Mass/volume] in Serum or Plasma 9.5 mg/dL 8.5-10.1 [facility] ([facility]) Total Bilirubin 0.8 mg/dL 0.2-1.0 [facility] ([facility]) Albumin [Mass/volume] in Serum or Plasma 3.4 g/dL 3.4-5.0 [facility] ([facility]) Alanine aminotransferase [Enzymatic activity/volume] in Seru m or Plasma 35 U/L 12-78 [facility] ([facility]) Aspartate aminotransferase [Enzymatic activity/volume] in Serum or Plasma 27 U/L 15-37 [facility] ([facility] ) Proteinase 3 Ab [Units/volume] in Serum 7.2 g/dL 6.4-8.2 [facility] ([facility]) Glomerular filtration rate/1.73 sq M pre dicted among non-blacks [Volume Rate/Area] in Serum or Plasma by Creatinine-based formula (MDRD) Laboratory test result [facility] ([facility] ) Glomerular filtration rate/1.73 sq M pre dicted among blacks [Volume Rate/Area] in Serum or Plasma by Creatinine-based formula (MDRD) Laboratory test result [facility] ([facility]) <content>CHRONIC KIDNEY DISEASE STAGING PER NKF</content>
<content></content>
<content>STAGE I & II GFR >= 60 NORMAL TO MILDLY DECREASED</content>
<content>STAGE III GFR 30-59 MODERATELY DECREASED</content>
<content>STAGE IV GFR 15-29 SEVERELY DECREASED</content>
<content>STAGE V GFR <15 VERY LITTLE GFR LEFT</content>
<content>ESRD GFR <15 ON CABLE SPLICER HELPER</content>
<content></content> A/G Ratio 0.89 CALC 1.00-1.90 [facility] ([facility]) ID Date Data Source [id number] 01/31/2021 02:23:00 PM EDT [facility] ([facility]) Name Value Range Interpretation Code Description Data Yuridia rce(s) Supporting Document(s) Magnesium 1.6 mg/dL 1.8-2.4 [facility] ([facility]) ID Date Data Source [id number] 01/31/2021 02:23:00 PM EDT [facility] ([facility]) Name Value Range Interpretation Code Description Data Yuridia rce(s) Supporting Document(s) Hemoglobin A1c/Hemoglobin.total in Blood 6.9 % [facility] ([facility]) Lab Result Notes: Pre-Diabetes 5.7 - 6.4 % Diabetes = or > 6.5% Glucose mean value [Mass/volume] in Blood Estimated fr om glycated hemoglobin 151 mg/dL 60-110 [facility] ([facility] ) ID Date Data Source [id number] 01/31/2021 02:23:00 PM EDT [facility] ([facility]) Name Value Range Interpretation Code Description Data Yuridia rce(s) Supporting Document(s) Hemoglobin A1c/Hemoglobin.total in Blood Laboratory test result [facility] ([facility]) Magnesium, Serum Laboratory test result [facility] ([facility]) ID Date Data Source [id number] 11/10/2020 12:58:00 PM EDT [facility] Name Value Range Interpretation Code Description Data Yuridia rce(s) Supporting Document(s) Glucose [Mass/volume] in Serum or Plasma 104 mg/dL 74-99 [facility] ([facility]) 100-125 mg/dL PRE-DIABETES/FASTING >126 mg/dL DIABETES/FASTING Creatinine 0.7 mg/dL 0.6-1.3 [facility] Urea nitrogen [Mass/volume] in Serum or Plasma 14 mg/dL 7-18 [facility] ([facility]) Potassium [Moles/volume] in Serum or Plasma 4.5 meq/L 3.5-5.1 [facility] ([facility]) Sodium [Moles/volume] in Serum or Plasma 137 meq/L 136-145 [facility] ([facility]) Chloride [Moles/volume] in Serum or Plasma 103 meq/L 98-107 [facility] ([facility]) Carbon dioxide, total [Moles/volume] in Serum or Plasma 28 meq/L 21 -32 [facility] ([facility]) Alkaline phosphatase isoenzyme [Units/volume] in Serum or Pl asma 67 mg/dL 46-116 [facility] ([facility]) Calcium [Mass/volume] in Serum or Plasma 9.8 mg/dL 8.5-10.1 [facility] ([facility]) Aspartate aminotransferase [Enzymatic activity/volume] in Serum or Plasma 24 U/L 15-37 [facility] ([facility] ) Total Bilirubin 0.9 mg/dL 0.2-1.0 [facility] ([facility]) Alanine aminotransferase [Enzymatic activity/volume] in Seru m or Plasma 27 U/L 12-78 [facility] ([facility]) Albumin [Mass/volume] in Serum or Plasma 3.4 g/dL 3.4-5.0 [facility] ([facility]) A/G Ratio 0.85 CALC 1.00-1.90 [facility]) Glomerular filtration rate/1.73 sq M pre dicted among non-blacks [Volume Rate/Area] in Serum or Plasma by Creatinine-based formula (MDRD) Laboratory test result [facility] Proteinase 3 Ab [Units/volume] in Serum 7.4 g/dL 6.4-8.2 [facility] Glomerular filtration rate/1.73 sq M pre dicted among blacks [Volume Rate/Area] in Serum or Plasma by Creatinine-based formula (MDRD) Laboratory test result [facility] <content>CHRONIC KIDNEY DISEASE STAGING PER NKF</content>
<content></content>
<content>STAGE I & II GFR >= 60 NORMAL TO MILDLY DECREASED</content>
<content>STAGE III GFR 30-59 MODERATELY DECREASED</content>
<content>STAGE IV GFR 15-29 SEVERELY DECREASED</content>
<content>STAGE V GFR <15 VERY LITTLE GFR LEFT</content>
<content>ESRD GFR <15 ON CABLE SPLICER HELPER</content>
<content></content> ID Date Data Source [id number] 11/10/2020 12:58:00 PM EDT [facility] ([facility]) Name Value Range Interpretation Code Description Data Yuridia rce(s) Supporting Document(s) Hemoglobin A1c/Hemoglobin.total in Blood 6.7 % [facility] Lab Result Notes: Pre-Diabetes 5.7 - 6.4 % Diabetes = or > 6.5% Glucose mean value [Mass/volume] in Blood Estimated fr om glycated hemoglobin 146 mg/dL 60-110 [facility] ID Date Data Source [id number] 11/10/2020 12:58:00 PM EDT [facility] Name Value Range Interpretation Code Description Data Yuridia rce(s) Supporting Document(s) Leukocytes [#/volume] in Blood by Automated count 9.0 x10*3/UL 4.1-10 .9 [facility] Hemoglobin [Mass/volume] in Blood 14.4 g/dL 12.0-18.0 [facility] Hematocrit [Volume Fraction] of Blood by Automated count 43.1 % 3 7.0-51.0 [facility] Erythrocytes [#/volume] in Blood by Automated count 4.70 x10*6/UL 4.2 0-6.30 [facility] MCHC 33.5 g/dL 31.0-38.0 [facility] ([facility]) MCH 30.7 pg 26.0-32.0 [facility] ([facility]) MCV 91.7 fL 80.0-97.0 [facility] ([facility]) MPV 8.2 FL 7.8-11.0 [facility] ([facility]) Platelets [#/volume] in Blood by Automated count 237 x10*3/UL 140-440 [facility] Erythrocyte distribution width [Ratio] by Automated count 12.9 % 11.6-13.7 [facility] ([facility]) Mid % 5.7 % 1.7-9.3 [facility] ([facility]) Lymph % 20.4 % 10.0-58.5 [facility] ([facility]) Neut % 73.9 % 37.0-92.0 [facility]) Lymph # 1.8 x10*3/UL 0.6-4.1 [facility] ([facility]) Neut # 6.6 x10*3/UL 2.0-7.8 [facility] ([facility]) Mid # 0.6 x10*3/UL 0.1-0.6 [facility] ([facility]) ID Date Data Source [id number] 11/10/2020 12:58:00 PM EDT [facility] ([facility]) Name Value Range Interpretation Code Description Data Yuridia rce(s) Supporting Document(s) Hemoglobin A1c/Hemoglobin.total in Blood Laboratory test result [facility] ([facility]) ID Date Data Source [id number] 11/09/2020 09:09:00 AM EDT [facility] Name Value Range Interpretation Code Description Data Yuridia rce(s) Supporting Document(s) Surgical pathology study Laboratory test result [facility] ([facility], ) FINAL DIAGNOSIS Descending and rectum polyps, polypectomy: Hyperplastic poly, fragments. 11/10/2020 - 100 CLINICAL DIAGNOSIS History colon cancer 11/09/2020 - 1450 GROSS DIAGNOSIS Received in formalin labeled "biopsy descending colon/polyps rectum" and consists of fragments of tissue, 0.2 x 0.1 x 0.1 cm. All in one. -OA 11/09/2020 - 1450 Signed MEGHAN HOLT MD 11/10/2020 1001 ID Date Data Source [id number] 11/04/2020 09:55:00 AM EDT [facility] Name Value Range Interpretation Code Description Data Yuridia rce(s) Supporting Document(s) SARS-CoV-2 (COVID-19) RNA [Presence] in Respiratory specimen by KANA with probe detection Not Detected [facility] This lab was ordered by [facility] and reported by [employer]. ID Date Data Source [id number] 09/08/2020 11:14:00 AM EDT [facility] ([facility]) Name Value Range Interpretation Code Description Data Yuridia rce(s) Supporting Document(s) Glucose [Mass/volume] in Serum or Plasma 113 mg/dL 74-99 [facility] ([facility]) 100-125 mg/dL PRE-DIABETES/FASTING >126 mg/dL DIABETES/FASTING Urea nitrogen [Mass/volume] in Serum or Plasma 14 mg/dL 7-18 [facility] ([facility]) Creatinine 0.8 mg/dL 0.6-1.3 [facility] Sodium [Moles/volume] in Serum or Plasma 135 meq/L 136-145 [facility] ([facility]) Potassium [Moles/volume] in Serum or Plasma 3.9 meq/L 3.5-5.1 [facility] ([facility]) Carbon dioxide, total [Moles/volume] in Serum or Plasma 30 meq/L 21 -32 [facility] ([facility]) Chloride [Moles/volume] in Serum or Plasma 99 meq/L 98-107 [facility] ([facility]) Calcium [Mass/volume] in Serum or Plasma 9.7 mg/dL 8.5-10.1 [facility] ([facility]) Total Bilirubin 1.1 mg/dL 0.2-1.0 [facility] ([facility]) Aspartate aminotransferase [Enzymatic activity/volume] in Serum or Plasma 42 U/L 15-37 [facility] ([facility] ) Alkaline phosphatase isoenzyme [Units/volume] in Serum or Pl asma 76 mg/dL 46-116 [facility] ([facility]) Albumin [Mass/volume] in Serum or Plasma 3.3 g/dL 3.4-5.0 [facility] ([facility]) Alanine aminotransferase [Enzymatic activity/volume] in Seru m or Plasma 59 U/L 12-78 [facility] ([facility]) Proteinase 3 Ab [Units/volume] in Serum 7.7 g/dL 6.4-8.2 [facility] ([facility]) A/G Ratio 0.75 CALC 1.00-1.90 [facility]) Glomerular filtration rate/1.73 sq M pre dicted among non-blacks [Volume Rate/Area] in Serum or Plasma by Creatinine-based formula (MDRD) Laboratory test result [facility] Glomerular filtration rate/1.73 sq M pre dicted among blacks [Volume Rate/Area] in Serum or Plasma by Creatinine-based formula (MDRD) Laboratory test result [facility] <content>CHRONIC KIDNEY DISEASE STAGING PER NKF</content>
<content></content>
<content>STAGE I & II GFR >= 60 NORMAL TO MILDLY DECREASED</content>
<content>STAGE III GFR 30-59 MODERATELY DECREASED</content>
<content>STAGE IV GFR 15-29 SEVERELY DECREASED</content>
<content>STAGE V GFR <15 VERY LITTLE GFR LEFT</content>
<content>ESRD GFR <15 ON CABLE SPLICER HELPER</content>
<content></content> ID Date Data Source [id number] 09/08/2020 11:14:00 AM EDT [facility]) Name Value Range Interpretation Code Description Data Yuridia rce(s) Supporting Document(s) Hemoglobin A1c/Hemoglobin.total in Blood 6.7 % [facility] Lab Result Notes: Pre-Diabetes 5.7 - 6.4 % Diabetes = or > 6.5% Glucose mean value [Mass/volume] in Blood Estimated fr om glycated hemoglobin 146 mg/dL 60-110 [facility] ID Date Data Source [id number] 09/08/2020 11:14:00 AM EDT [facility] Name Value Range Interpretation Code Description Data Yuridia rce(s) Supporting Document(s) Erythrocytes [#/volume] in Blood by Automated count 4.88 x10*6/UL 4.2 0-6.30 [facility] ([facility]) Leukocytes [#/volume] in Blood by Automated count 10.3 x10*3/UL 4.1-1 0.9 [facility] ([facility]) MCV 94.7 fL 80.0-97.0 [facility] Hemoglobin [Mass/volume] in Blood 15.9 g/dL 12.0-18.0 [facility] ([facility]) Hematocrit [Volume Fraction] of Blood by Automated count 46.2 % 3 7.0-51.0 [facility] MCHC 34.4 g/dL 31.0-38.0 [facility] ([facility]) MCH 32.6 pg 26.0-32.0 [facility] ([facility]) Platelets [#/volume] in Blood by Automated count 269 x10*3/UL 140-440 [facility] Erythrocyte distribution width [Ratio] by Automated count 12.2 % 11.6-13.7 [facility] ([facility]) MPV 8.5 FL 7.8-11.0 [facility]) Lymph % 22.1 % 10.0-58.5 [facility] ([facility]) Mid % 5.8 % 1.7-9.3 [facility] ([facility]) Neut % 72.1 % 37.0-92.0 [facility] ([facility]) Mid # 0.7 x10*3/UL 0.1-0.6 [facility] ([facility]) Lymph # 2.2 x10*3/UL 0.6-4.1 [facility] ([facility]) Neut # 7.4 x10*3/UL 2.0-7.8 [facility] ([facility]) ID Date Data Source [id number] 08/23/2020 10:19:00 AM EDT [facility] Name Value Range Interpretation Code Description Data Yuridia rce(s) Supporting Document(s) Influenza A Amplification Laboratory test result [facility] ([facility]) Negative results do not preclude influen za or RSV virus infection and should not be used as the sole basis for treatment or other patient management decisions. Influenza B Amplification Laboratory test result [facility] ([facility]) Negative results do not preclude influen za or RSV virus infection and should not be used as the sole basis for treatment or other patient management decisions. RSV Amplification Laboratory test result [facility] ([facility]) Negative results do not preclude influen za or RSV virus infection and should not be used as the sole basis for treatment or other patient management decisions. Laboratory test finding (navigational concept) Laboratory test result [facility] ([facility]) A false negative result may occur [...] pathogens. DISCLAIMER: Testing was performed using the [employer] SARS-CoV-2 test. This test was developed and its performance characteristics determined by [employer]. This test has not been FDA cleared [...] or revoked sooner. ID Date Data Source [id number] 08/23/2020 10:19:00 AM EDT [facility] Name Value Range Interpretation Code Description Data Yuridia rce(s) Supporting Document(s) SARS coronavirus 2 RNA [Presence] in Res piratory specimen by KANA with probe detection NEGATIVE [facility] This lab was ordered by [facility] a nd reported by [facility]. ID Date Data Source [id number] 08/23/2020 08:27:00 AM EDT [facility] ([facility]) Name Value Range Interpretation Code Description Data Yuridia rce(s) Supporting Document(s) Laboratory test finding (navigational concept) 0.01 ng/mL 0.00-0.08 [facility] ([facility]) ID Date Data Source [id number] 08/23/2020 08:25:00 AM EDT [facility] ([facility]) Name Value Range Interpretation Code Description Data Yuridia rce(s) Supporting Document(s) Laboratory test finding (navigational concept) 45.0 % 38.0-51.0 [facility] ([facility]) Laboratory test finding (navigational concept) 139 meq/L 136-145 [facility] ([facility]) Laboratory test finding (navigational concept) 158 mg/dL 70-105 [facility] ([facility]) Laboratory test finding (navigational concept) 4.4 meq/L 3.5-5.1 [facility] ([facility]) Laboratory test finding (navigational concept) 4.6 mg/dL 4.5-5.3 [facility] ([facility]) Laboratory test finding (navigational concept) 101 meq/L 98-109 [facility] ([facility]) Laboratory test finding (navigational concept) 31.0 MM/L 23.0-27.0 [facility] ([facility]) Laboratory test finding (navigational concept) 10 mg/dL 8-26 [facility] ([facility]) Laboratory test finding (navigational concept) 0.6 mg/dL 0.6-1.3 [facility] ([facility]) ID Date Data Source [id number] 08/23/2020 08:20:00 AM EDT [facility] ([facility]) Name Value Range Interpretation Code Description Data Yuridia rce(s) Supporting Document(s) Magnesium [Moles/volume] in Serum or Plasma 1.6 mg/dL 1.8-2.4 [facility] Natriuretic peptide.B prohormone N-Terminal [Mass/volu me] in Serum or Plasma 285 pg/mL [facility] Thyrotropin [Units/volume] in Serum or Plasma by Detec tion limit <= 0.05 mIU/L 0.774 uIU/ML 0.358-3.740 [facility] ([facility] ) ID Date Data Source [id number] 08/23/2020 08:20:00 AM EDT [facility] Name Value Range Interpretation Code Description Data Yuridia rce(s) Supporting Document(s) Ast/Sgot 42 U/L 7-37 [facility]) Alt/SGPT 33 U/L 12-78 [facility]) Alkaline Phosphatase 90 U/L 45-117 [facility] ([facility]) Bilirubin,Total 1.3 mg/dL 0.2-1.0 [facility] ([facility]) Bilirubin,Direct 0.6 mg/dL 0.0-0.2 [facility] ([facility]) Total Protein 7.7 GM/DL 6.4-8.2 [facility] ([facility]) Albumin 3.1 GM/DL 3.2-5.2 [facility]) Albumin/Globulin Ratio 0.7 [facility] ([facility]) ID Date Data Source [id number] 08/23/2020 08:20:00 AM EDT [facility] ([facility]) Name Value Range Interpretation Code Description Data Yuridia rce(s) Supporting Document(s) Prothrombin Time 16.2 s 12.5-14.3 [facility]) Inr 1.27 [facility] THERAPUTIC HUMAN INR VALUES INDICATIONS NORMAL RANGES PROPHYLAXIS/TREATMENT OF: VENOUS THROMBOSIS 2.0-3.0 PULMONARY EMBOLISM 2.0-3.0 PREVENTION OF SYSTEMIC EMBOLISM FROM: TISSUE HEART VALVES 2.0-3.0 ACUTE MYOCARDIAL INFARCTION 2.0-3.0 VALVULAR HEART DISEASE 2.0-3.0 ATRIAL FIBRILLATION 2.0-3.0 MECHANICAL VALVES(HIGH RISK) 2.5-3.5 RECURRENT MYOCARDIAL INFARCTION 2.5-3.5 ID Date Data Source [id number] 08/23/2020 08:20:00 AM EDT [facility]) Name Value Range Interpretation Code Description Data Yuridia rce(s) Supporting Document(s) White Blood Count 7.8 10 4.0-10.0 [facility] ([facility]) Hematocrit 42.5 % 42.0-52.0 [facility] Hemoglobin 14.3 g/dL 13.5-17.5 [facility] Red Blood Count 4.28 10 4.30-6.10 [facility] ([facility]) Mean Corpuscular Volume 99.3 fl 80.0-96.0 [facility] ([facility]) Mean Corpuscular Hemoglobin 33.4 pg 27.0-33.0 [facility] ([facility]) Red Cell Distribution Width 12.3 % 11.5-14.5 ME D[facility] ([facility]) Mean Corpuscular HGB Conc 33.6 g/dL 32.0-36.5 [facility] NT ([facility]) Platelet Count, Automated 164 10 150-450 [facility] NT ([facility]) Lymph % 23.1 % 24.0-44.0 [facility]) Neutrophils % 62.1 % 36.0-66.0 [facility] ([facility]) [place] % 10.3 % 2.0-8.0 [facility]) Baso % 1.4 % 0.0-1.0 [facility]) Eos % 2.6 % 0.0-3.0 [facility]) Immature Granulocyte % 0.5 % 0-3.0 [facility] ([facility]) Neutrophils # 4.9 10 1.5-8.5 [facility] ([facility]) Nucleated Red Blood Cell % 0.0 % 0-0 MED ENT ([facility]) Lymph # 1.8 10 1.5-5.0 [facility]) Eos # 0.2 10 0.0-0.5 [facility]) Baso # 0.1 10 0.0-0.2 [facility]) [place] # 0.8 10 0.0-0.8 [facility] ID Date Data Source [id number] 07/04/2020 12:00:00 AM EST [facility] Name Value Range Interpretation Code Description Data Yuridia rce(s) Supporting Document(s) SARS-CoV2 Rapid Antigen Negative [facility] This lab was ordered by [facility] and reported by [facility]. Procedure Social History Code Duration Value Status Description Data Source(s ) Smoking 03/23/2021 12:00:00 AM EDT Patient has never smoked co mpleted Patient has never smoked [facility] ([facility]) Alcohol intake 03/03/2021 12:00:00 AM EDT Ex-drinker (finding) comp leted Ex- drinker (finding) [facility] Alcohol intake 12/21/2020 12:00:00 AM EDT Ex-drinker (finding) comp leted Ex- drinker (finding) [facility] Alcohol intake 10/28/2020 12:00:00 AM EDT Current drinker of al cohol (finding) completed Current drinker of alcohol (finding) [facility] Vital Signs ID Date Data Source [id number] Name Value Range Interpretation Code Description Data Source(s) Body temperature 97.2 [degF] 97.2 [degF] FR[facility] ([facility], ) Body weight 266.00 [lb_av] 266.00 [lb_av] SARKIS Gallo ([facility]) Body mass index (BMI) [Ratio] 38.2 kg/m2 38.2 k g/m2 FREDA ([facility]) Systolic blood pressure 100 mm[Hg] 100 mm[Hg] DENISSE ([facility]) Diastolic blood pressure 72 mm[Hg] 72 mm[Hg] FREDA ([facility]) Heart rate 82 /min 82 /min [facility] ([facility]) Body height 70 [in_i] 70 [[facility]_i] [facility] 5'10" Body mass index (BMI) [Ratio] 39.68 kg/m2 39.68 kg/m2 [facility] Systolic blood pressure 110 mm[Hg] 110 mm[Hg] [facility] Diastolic blood pressure 68 mm[Hg] 68 mm[Hg] [facility] Heart rate 71 /min 71 /min [facility] Body height 172.7 cm 172.7 cm [facility] Body weight 118.389 kg 118.389 kg [facility] Oxygen saturation in Arterial blood by Pulse oximetry 95 % 95 % [facility] Systolic blood pressure 102 mm[Hg] 102 mm[Hg] DENISSE ([facility]) Diastolic blood pressure 82 mm[Hg] 82 mm[Hg] FREDA ([facility]) Heart rate 58 /min 58 /min [facility] ([facility]) Body height 70 [in_i] 70 [in_i] [facility] ([facility]) 5'10" Body weight 262.00 [lb_av] 262.00 [lb_av] MEDEN T ([facility]) Oxygen saturation in Arterial blood by Pulse oximetry 99 % 99 % [facility] ([facility]) RM Air Body mass index (BMI) [Ratio] 37.6 kg/m2 37.6 k g/m2 [facility] ([facility]) Body weight 266.00 [lb_av] 266.00 [lb_av] MEDEN T ([facility]) Body height 70 [in_i] 70 [in_i] [facility] ([facility]) 5'10" Oxygen saturation in Arterial blood by Pulse oximetry 99 % 99 % [facility]) RM Air Body mass index (BMI) [Ratio] 38.2 kg/m2 38.2 k g/m2 [facility] ([facility]) Systolic blood pressure 102 mm[Hg] 102 mm[Hg] [facility] ([facility]) Diastolic blood pressure 80 mm[Hg] 80 mm[Hg] [facility]) Heart rate 81 /min 81 /min [facility] ([facility]) Body mass index (BMI) [Ratio] 35.7 kg/m2 35.7 k g/m2 [facility]) Diastolic blood pressure 94 mm[Hg] 94 mm[Hg] [facility] ([facility]) Systolic blood pressure 118 mm[Hg] 118 mm[Hg] [facility] Heart rate 73 /min 73 /min [facility] ([facility]) Body height 70 [in_i] 70 [in_i] [facility] ([facility]) 5'10" Body weight 249.00 [lb_av] 249.00 [lb_av] MEDEN T ([facility]) Oxygen saturation in Arterial blood by Pulse oximetry 98 % 98 % [facility] ([facility]) Body temperature 97.9 [degF] 97.9 [degF] [facility] ([facility], ) Systolic blood pressure 100 mm[Hg] 100 mm[Hg] [facility] Diastolic blood pressure 70 mm[Hg] 70 mm[Hg] [facility] Heart rate 76 /min 76 /min [facility] Body height 172.7 cm 172.7 cm [facility] Body weight 109.861 kg 109.861 kg [facility] Body mass index (BMI) [Ratio] 36.83 kg/m2 36.83 kg/m2 [facility] Oxygen saturation in Arterial blood by Pulse oximetry 96 % 96 % [facility] Body temperature 98.7 [degF] 98.7 [degF] [facility] ) Systolic blood pressure 118 mm[Hg] 118 mm[Hg] ED[facility] ([facility]) Diastolic blood pressure 62 mm[Hg] 62 mm[Hg] [facility] ([facility]) Heart rate 70 /min 70 /min [facility]) Body height 70 [in_i] 70 [in_i] [facility] ([facility]) 5'10" Body weight 240.00 [lb_av] 240.00 [lb_av] MEDEN T ([facility]) Body mass index (BMI) [Ratio] 34.4 kg/m2 34.4 k g/m2 [facility] ([facility]) Systolic blood pressure 110 mm[Hg] 110 mm[Hg] [facility] Diastolic blood pressure 80 mm[Hg] 80 mm[Hg] [facility] Heart rate 101 /min 101 /min [facility] Respiratory rate 18 /min 18 /min [facility] Body weight 111.585 kg 111.585 kg [facility] Body mass index (BMI) [Ratio] 37.40 kg/m2 37.40 kg/m2 [facility] Oxygen saturation in Arterial blood by Pulse oximetry 97 % 97 % [facility] Oxygen saturation in Arterial blood by Pulse oximetry 97 % 97 % [facility] ([facility]) Heart rate 91 /min 91 /min [facility]) Respiratory rate 18 /min 18 /min [facility] ( [facility]) [place] body weight 166 [lb_av] 166 [lb_av] MEDEN T ([facility]) Oxygen saturation in Arterial blood by Pulse oximetry 97 % 97 % [facility] ([facility]) Systolic blood pressure 135 mm[Hg] 135 mm[Hg] ED[facility] ([facility]) Diastolic blood pressure 93 mm[Hg] 93 mm[Hg] [facility]) Body weight 113.400 kg 113.400 kg [facility]) Body temperature 97.2 [degF] 97.2 [degF] [facility]) Body height 70 [in_i] 70 [in_i] [facility]) 5'10" Body weight 250.00 [lb_av] 250.00 [lb_av] MED[facility] T ([facility]) Body mass index (BMI) [Ratio] 35.9 kg/m2 35.9 k g/m2 [facility] ([facility]) [place] body weight 166 [lb_av] 166 [lb_av] [facility] T ([facility]) Body weight 113.400 kg 113.400 kg [facility] ([facility]) Body surface area Derived from formula 2.29 m2 2.29 m2 [facility] ([facility]) Respiratory rate 18 /min 18 /min [facility] ( [facility]) Body temperature 97.2 [degF] 97.2 [degF] [facility]) Body height 70 [in_i] 70 [in_i] [facility]) 5'10" Body weight 250.00 [lb_av] 250.00 [lb_av] MED[facility] T ([facility]) Body mass index (BMI) [Ratio] 35.9 kg/m2 35.9 k g/m2 [facility]) Body surface area Derived from formula 2.29 m2 2.29 m2 [facility] ([facility]) Systolic blood pressure 113 mm[Hg] 113 mm[Hg] [facility] Respiratory rate 17 /min 17 /min [facility] ( [facility]) Body weight 250.75 [lb_av] 250.75 [lb_av] [facility] T ([facility]) Body height 70 [in_i] 70 [in_i] [facility] ([facility]) 5'10" Body mass index (BMI) [Ratio] 36.0 kg/m2 36.0 k g/m2 [facility] ([facility]) Diastolic blood pressure 73 mm[Hg] 73 mm[Hg] [facility] ([facility]) Heart rate 84 /min 84 /min [facility] ([facility]) Oxygen saturation in Arterial blood by Pulse oximetry 100 % 100 % [facility] ([facility]) Body temperature 95.4 [degF] 95.4 [degF] [facility] ([facility]) [place] body weight 166 [lb_av] 166 [lb_av] [facility] T ([facility]) Body weight 113.740 kg 113.740 kg [facility]) Body surface area Derived from formula 2.30 m2 2.30 m2 [facility] ([facility]) Systolic blood pressure 122 mm[Hg] 122 mm[Hg] [facility] Diastolic blood pressure 86 mm[Hg] 86 mm[Hg] [facility]) Body height 70 [in_i] 70 [in_i] [facility] ([facility]) 5'10" Body weight 248.50 [lb_av] 248.50 [lb_av] [facility] T ([facility]) Body mass index (BMI) [Ratio] 35.7 kg/m2 35.7 k g/m2 [facility]) [place] body weight 166 [lb_av] 166 [lb_av] MED[facility] T ([facility], ) Body weight 112.720 kg 112.720 kg [facility] Body surface area Derived from formula 2.29 m2 2.29 m2 [facility] ([facility]) Body weight 250.00 [lb_av] 250.00 [lb_av] MED[facility] T ([facility]) Body mass index (BMI) [Ratio] 35.9 kg/m2 35.9 k g/m2 [facility] ([facility]) Systolic blood pressure 118 mm[Hg] 118 mm[Hg] [facility]) Diastolic blood pressure 62 mm[Hg] 62 mm[Hg] [facility] ([facility]) Heart rate 68 /min 68 /min [facility] ([facility]) Body height 70 [in_i] 70 [in_i] [facility] ([facility]) 5'10" Patient Treatment Plan of Care Planned Activity Planned Date Details Description Data Source (s) Lactulose 667 MG/ML Oral Solution 03/02/2021 12:00:00 AM EDT [facility] Furosemide 40 MG Oral Tablet 02/28/2021 12:00:00 AM EDT [facility] Metoprolol Tartrate 25 MG Oral Tablet 02/24/2021 12:00:00 AM EDT [facility] atorvastatin 20 MG Oral Tablet 02/24/2021 12:00:00 AM EDT [facility] apixaban 5 MG Oral Tablet 01/31/2021 12:00:00 AM EDT [facility] Cyclobenzaprine hydrochloride 10 MG Oral Tablet 01/02/2021 12:00:00 AM EDT [facility] Lisinopril 2.5 MG Oral Tablet 12/21/2020 12:00:00 AM EDT [facility] apixaban 5 MG Oral Tablet 12/15/2020 12:00:00 AM EDT [facility] Metoprolol Tartrate 50 MG Oral Tablet 10/28/2020 12:00:00 AM EDT [facility] Lisinopril 10 MG Oral Tablet 10/28/2020 12:00:00 AM EDT [facility] ropinirole 4 MG Oral Tablet 08/30/2020 12:00:00 AM EDT [facility] Metformin hydrochloride 1000 MG Oral Tablet 08/30/2020 12:00:00 AM EDT [facility] Magnesium Oxide 500 MG Oral Tablet 08/30/2020 12:00:00 AM EDT [facility] atorvastatin 40 MG Oral Tablet 08/30/2020 12:00:00 AM EDT [facility] Pravastatin Sodium 10 MG Oral Tablet 01/13/2020 12:00:00 AM EDT [facility] Metoprolol Tartrate 25 MG Oral Tablet 12/16/2019 12:00:00 AM EDT [facility] Hydrochlorothiazide 25 MG Oral Tablet 11/12/2019 12:00:00 AM EDT [facility] Lisinopril 10 MG Oral Tablet 11/12/2019 12:00:00 AM EDT [facility] Metformin hydrochloride 500 MG Oral Tablet 10/24/2019 12:00:00 AM E DT [facility]
[2021-04-05 14:15] LABS: BASO # 0.1 10^3/uL (0.0-0.2); BASO % 0.8 % (0.0-1.0); EOS # 0.2 10^3/uL (0.0-0.5); EOS % 3.7 % (0.0-3.0); HEMATOCRIT 37.8 % (42.0-52.0); HEMOGLOBIN 12.2 g/dl (13.5-17.5); LYMPH # 1.3 10^3/uL (1.5-5.0); LYMPH % 22.3 % (24.0-44.0); MEAN CORPUSCULAR HEMOGLOBIN 29.9 pg (27.0-33.0); MEAN CORPUSCULAR HGB CONC 32.3 g/dl (32.0-36.5); MEAN CORPUSCULAR VOLUME 92.6 fl (80.0-96.0); MONO % 17.1 % (2.0-8.0); NEUTROPHILS # 3.3 10^3/uL (1.5-8.5); NEUTROPHILS % 55.9 % (36.0-66.0); PLATELET COUNT, AUTOMATED 149 10^3/uL (150-450); RED BLOOD COUNT 4.08 10^6/uL (4.30-6.10)
--- NOTE | 2021-04-05 14:44 | REP ---
INDICATION: DYSPNEA/COUGH. COMPARISON: CXR 03/17/2021 TECHNIQUE: AP seated chest. FINDINGS: Single lead pacer over the right upper chest with the skin yaniv removed since the previous exam. Lead tip terminates in the right ventricle. There is left ventricular configuration with left atrial and ventricular enlargement. Coarsened interstitial markings and patchy basilar infiltrates left greater than right noted. No radha edema but some venous hypertension suggested. The aorta is calcified at the arch but without gross aneurysm. No abnormal widening of the mediastinum. Airway intact. The bony thorax shows plate and screw fixation in the lower cervical spine and some degenerative changes spine and shoulders. No free air under the diaphragm. IMPRESSION: 1. Patchy basilar and perihilar interstitial infiltrates with out dense consolidation with air bronchograms or definite effusion. 2. Left atrial and ventricular enlargement with some mild venous hypertension, no radha edema. 3. Calcified aortic arch without gross aneurysm. 4. Single lead pacer over the left mid chest with skin yaniv removed from above that pacer since the previous exam nearly 3 weeks ago. <Electronically signed by Ky Cook > 04/05/21 [id number]
[2021-04-05 15:02] LABS: ALBUMIN 3.2 GM/DL (3.2-5.2); ALT/SGPT 37 U/L (12-78); BILIRUBIN,DIRECT 0.3 MG/DL (0.0-0.2); BILIRUBIN,TOTAL 0.6 MG/DL (0.2-1.0); BLOOD UREA NITROGEN 17 MG/DL (7-18); CALCIUM LEVEL 9.2 MG/DL (8.5-10.1); CARBON DIOXIDE LEVEL 26 MEQ/L (21-32); CHLORIDE LEVEL 108 MEQ/L (98-107); CK-MB VALUE MASS 1.6 NG/ML (<3.6); CPK CREATINE PHOSPHOKINASE 76 U/L (39-308); CREATININE FOR GFR 0.77 MG/DL (0.70-1.30); GLOMERULAR FILTRATION RATE > 60.0 (>56); GLUCOSE, FASTING 105 MG/DL (70-100); MB/CK RELATIVE INDEX 2.11 (< OR =4); NT-PRO BNP 563 PG/ML (<125); POTASSIUM SERUM 4.3 MEQ/L (3.5-5.1); SODIUM LEVEL 138 MEQ/L (136-145); THYROXINE (T4) 10.4 UG/DL (4.5-12.0); TOTAL PROTEIN 7.3 GM/DL (6.4-8.2); TROPONIN I < 0.02 NG/ML (< 0.10)
--- OUTSIDE RECORDS SUMMARY | 2021-04-05 15:54 | CCD ---
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 Name Role Phone Isra Goldman MD Unavailable [...] Unavailable Unavailable EUGENE, BRODY MD Unavailable Unavailable EUGEEN, MARY GRACE MD Unavailable Unavailable EUGENE, BRODY [...] Unavailable Unavailable EUGENE, BRODY MD Unavailable Unavailable [place], Christopher DO Unavailable Unavailable Lisseth, Christopher DO Unavailable Unavailable [place], Christopher DO Unavailable Unavailable [place], Christopher DO Unavailable Unavailable [place], Christopher DO Unavailable Unavailable Lisseth, Christopher DO [...] is protected by Article 27-F of the [facility] Public Health law. If you continue you may have access to information: Regarding HIV / AIDS; Provided by facilities licensed or operated by the [facility] Office of Mental Health; or Provided by the [facility] Office for People With Developmental Disabilities. If such information is present, then the following [facility] mandated warning applies: This information has been [...] Description Data Source(s) Unknown Male Problem [facility] ([facility]) Unknown Male Problem [facility] ([facility]) Unknown Female Problem [facility] ([facility]) Encounters Encounter Providers Location Date Indications Data Source(s ) Office Visit Attender: Marek Wagoner/Chip/Varghese/Lisa baltazar 03/27/2021 02:30:00 PM EDT [facility] Outpatient Attender: Blanche POWER Main Office 03/23/2021 12:45:00 PM EDT [facility] ([facility]) Outpatient Attender: Milton Ocampo 03/08/2021 11:00:00 AM EDT MED[facility] ([facility] ) Outpatient Attender: MARY GRACE KEENANSJDorisELIUD 01:16:01 PM EDT - 03/03/2021 02:05:15 PM EDT [facility] Outpatient Attender: Milton Arboleda 03/03/2021 11:40:00 AM EDT [facility] ([facility] ) Outpatient Attender: Shaileshluna Arboleda 02/28/2021 10:40:00 AM EDT [facility] ([facility] ) Office Visit Attender: Marek Wagoner/Chip/Varghese/Re indl 02/21/2021 09:15:00 AM EDT [facility] ([facility]) Outpatient Attender: Milton Montanez DO Lisseth Dominguezkaylabasil 01/31/2021 01:40:00 PM EDT [facility] ([facility] ) Outpatient Attender: Marek Wagoner/Chip/Varghese/Re indl 01/17/2021 02:00:00 PM EDT [facility] ([facility] Outpatient Attender: MARY GRACE LYMAN-SJP.ELIUD 12:00:00 AM EDT - 12/21/2020 10:26:08 AM EDT [facility] Outpatient Attender: Marek Wagoner/Chip/Varghese/Re indl 12/20/2020 09:15:00 AM EDT [facility] ([facility] Outpatient Attender: Marek Wagoner/Chip/Varghese/Re indl 12/15/2020 10:45:00 AM EDT [facility] ([facility] Outpatient Attender: Nader Hurt 11/10 11:30:00 AM EDT [facility] ([facility] ) Outpatient Attender: MARY GRACE KEENANSJP.ELIUD 10/28/2020 12:00:00 AM EDT [facility] Outpatient Attender: Marek Wagoner/Chip/Varghese/Re indl 10/07/2020 02:15:00 PM EDT [facility] ([facility], ) Outpatient Attender: Marek Wagoner/Chip/Varghese/Re indl 09/22/2020 09:00:00 AM EDT [facility] ([facility], ) Outpatient Attender: Nader Hurt 09/08 10:00:00 AM EDT [facility] ([facility] ) Immunizations Vaccine Date Status Description Data Source(s) COVID-19 VACCINE Moderna 10/07/2020 12:00:00 AM EDT completed [facility] Vaccine Series Complete: YESThis Data wa s Submitted to [facility] Via [employer]. COVID-19 VACCINE Moderna 09/09/2020 12:00:00 AM EDT completed [facility] Vaccine Series Complete: NOThis Data was Submitted to [facility] Via [employer]. Medications Medication Brand Name Start Date Product Form Dose Route Admi nistrative Instructions Pharmacy Instructions Status Indications Reaction Description Data Source(s) ferrous sulfate 325 MG Oral Tablet Ferrous Sulfate 03/08/2021 12:00 :00 AM EDT ORAL active MED[facility] ([facility]) Spironolactone 25 MG Oral Tablet Spironolactone 03/08/2021 12:00:00 A M EDT ORAL active [facility] ([facility]) Lactulose 667 MG/ML Oral Solution Lactulose Encephalop athy 10 GM/15ML SOLN Lactulose Encephalopathy 10 GM/15ML SOLN 03/02/2021 12:00:00 AM EDT active [facility] Lactulose 667 MG/ML Oral Solution Lactulose 03/01/2021 12:00:00 AM EDT ORAL active MED[facility] ([facility]) Furosemide 40 MG Oral Tablet furosemide (LASIX) 40 MG tablet furosemide (LASIX) 40 MG tablet 02/28/2021 12:00:00 AM EDT active [facility] Furosemide 40 MG Oral Tablet Furosemide 02/28/2021 12:00:00 AM EDT active [facility] ([facility]) atorvastatin 20 MG Oral Tablet atorvastatin (LIPITOR) 20 MG tablet atorvastatin (LIPITOR) 20 MG tablet 02/24/2021 12:00:00 AM EDT active [facility] Metoprolol Tartrate 25 MG Oral Tablet me toprolol tartrate (LOPRESSOR) 25 MG tablet metoprolol tartrate (LOPRESSOR) 25 MG tablet 02/24/2021 12:0 0:00 AM EDT 25 mg Oral active Take 25 mg by mo uth daily [facility] Acetaminophen 325 MG / Oxycodone Hydrochloride 5 MG Or al Tablet [Percocet] Percocet 02/08/2021 12:00:00 AM EDT ORAL completed MED[facility] ([facility], ) Metoprolol Tartrate 25 MG Oral Tablet Metoprolol Tartrate 12:00:00 AM EDT ORAL active [facility]) apixaban 5 MG Oral Tablet Apixaban (ELIQUIS) 5 MG TABS tablet Apixaban (ELIQUIS) 5 MG TABS tablet 01/31/2021 12:00:00 AM EDT 5 mg Oral active Paroxysmal atrial fibrillation Take 1 tablet (5 mg total) by mouth 2 (t wo) times a day [facility] Paroxysmal atrial fibrillation Methylprednisolone 4 MG Oral Tablet Methylprednisolone 12/25 12:00:00 AM EDT active MED[facility] ([facility], ) Cyclobenzaprine hydrochloride 10 MG Oral Tablet cyclobenzaprine (FLEXERIL) 10 MG tablet cyclobenzaprine (FLEXERIL) 10 MG tablet 01/02/2021 12:00:00 AM EDT active [facility] Cyclobenzaprine hydrochloride 10 MG Oral Tablet Cyclobenzapr ine HCL 01/02/2021 12:00:00 AM EDT ORAL active M EDENT ([facility], ) Lisinopril 2.5 MG Oral Tablet lisinopril (PRINIVIL,ZES TRIL) 2.5 MG tablet lisinopril (PRINIVIL,ZESTRIL) 2.5 MG tablet 12/21/2020 12:00:00 AM EDT 2.5 mg Oral aborted Type 2 diabetes mellitus without complication, without long- term current use of insulinHypertension, unspecified type Take 1 tablet (2.5 mg total) by mouth daily [facility] Type 2 diabetes mellitus without complic ation, without long-term current use of insulin Hypertension, unspecified type apixaban 5 MG Oral Tablet Apixaban (ELIQUIS) 5 MG TABS tablet Apixaban (ELIQUIS) 5 MG TABS tablet 12/15/2020 12:00:00 AM EDT 5 mg Oral active Take 1 tablet (5 mg total) by mouth 2 (two) times a day [facility] Suprep Bowel Prep Kit Suprep Bowel Prep [...] mouth 2 ( two) times a day [facility] Hypertension, unspecified type Paroxysmal atrial fibrillation Lisinopril 10 MG Oral Tablet lisinopril (PRINIVIL,ZEST RIL) 10 MG tablet lisinopril (PRINIVIL,ZESTRIL) 10 MG tablet 10/28/2020 12:00:00 AM EDT 5 mg Oral aborted Take 0.5 tablets (5 mg total) by mouth daily [facility] atorvastatin 20 MG Oral Tablet Atorvastatin Calcium 09/01/2020 1 2:00:00 AM EDT ORAL active [facility] ( [facility]) MAGNESIUM GLUCONATE 500 MG Oral Tablet Magnesium Gluconate 0 09/01/2020 12:00:00 AM EDT active [facility] Metformin hydrochloride 1000 MG Oral Tablet Metformin HCL 09/01/2020 12:00:00 AM EDT ORAL active [facility] ropinirole 4 MG Oral Tablet Ropinirole HCL 09/01/2020 12:00:00 AM EDT ORAL active [facility] ([facility]) atorvastatin 40 MG Oral Tablet atorvastatin (LIPITOR) 40 MG tablet atorvastatin (LIPITOR) 40 MG tablet 08/30/2020 12:00:00 AM EDT 40 mg Oral active Take 40 mg by mouth daily [facility] Magnesium Oxide 500 MG Oral Tablet Magnesium Oxide 500 MG TABS Magnesium Oxide 500 MG TABS 08/30/2020 12:00:00 AM EDT 1 {tbl} Oral activ e Take 1 tablet by mouth daily [facility] Metformin hydrochloride 1000 MG Oral Tab let metFORMIN (GLUCOPHAGE) 1000 MG tablet metFORMIN (GLUCOPHAGE) 1000 MG tablet 08/30/2020 12:00:00 AM EDT 1000 mg Oral active Take 1,000 mg by mouth 2 (two) times a day with meals [facility] ropinirole 4 MG Oral Tablet rOPINIRole (REQUIP) 4 MG t ablet rOPINIRole (REQUIP) 4 MG tablet 08/30/2020 12:00:00 AM EDT 4 mg Oral active Take 4 mg by mouth nightly [facility] Pravastatin Sodium 10 MG Oral Tablet pravastatin (PRAV ACHOL) 10 MG tablet pravastatin (PRAVACHOL) 10 MG tablet 01/13/2020 12:00:00 AM EDT 10 mg Oral aborted Hypertension, unspecified ty peParoxysmal atrial fibrillationHyperlipidemia, unspecified hyperlipidemia type Take 1 tablet (10 mg total) by mouth nightly [facility] Hypertension, unspecified type Paroxysmal atrial fibrillation Hyperlipidemia, unspecified hyperlipidem ia type Metoprolol Tartrate 25 MG Oral Tablet me toprolol tartrate (LOPRESSOR) 25 MG tablet metoprolol tartrate (LOPRESSOR) 25 MG tablet 12/16/2019 12:0 0:00 AM EDT 25 mg Oral aborted Take 1 tablet (2 5 mg total) by mouth 2 (two) times a day [facility] Lisinopril 10 MG Oral Tablet lisinopril (PRINIVIL,ZEST RIL) 10 MG tablet lisinopril (PRINIVIL,ZESTRIL) 10 MG tablet 11/12/2019 12:00:00 AM EDT 10 mg Oral aborted Take 10 mg by mouth daily [facility] Hydrochlorothiazide 25 MG Oral Tablet hy drochlorothiazide (HYDRODIURIL) 25 MG tablet hydrochlorothiazide (HYDRODIURIL) 25 MG tablet 020 12:00:00 AM EDT 12.5 mg Oral aborted Take 12.5 mg by mouth daily [facility] Metformin hydrochloride 500 MG Oral Tablet metFORMIN ( GLUCOPHAGE) 500 MG tablet metFORMIN (GLUCOPHAGE) 500 MG tablet 10/24/2019 12:00:00 AM EDT 500 m g Oral aborted Take 500 mg by mouth 4 (four ) times a day [facility] Insurance Providers Payer name Policy type / Coverage type Policy ID Covered constitution party ID Covered constitution party's relationship to lopez Policy Lopez Plan Information [employer] Part B [id number] Family Dependent U [id number] [facility] [id number] Family Dependent U [id number] [facility] [id number] Family Dependent U [id number] [facility] [id number] Family Dependent U [id number] [employer] Part B [id number] Family Dependent U [id number] [employer] Part B [id number] Family Dependent U [id number] [employer] Part B [id number] Family Dependent U [id number] BS [employer] Part B [id number] Family Dependent U [id number] BS [employer] Part B [id number] Family Dependent U [id number] MVP (pr) Commercial [id number] Self [id number] Stella (WC) Workers Compensation [id number] Self [id number] [facility] [id number] SP [id number] [facility] [id number] SP [id number] [employer] Commercial [id number] Self [employer] Commercial [id number] Self [id number] [employer] Commercial [id number] Self [id number] [employer] Commercial [id number] Self [employer] BC[employer] [id number] Deborah PYN [id number] [employer] [id number] [employer] BC[employer] B [id number] S PYN [id number] BS [employer] Commercial [id number] Self P [id number] BS [employer] Commercial [id number] Self P [id number] BS [employer] Commercial [id number] Self P [id number] [employer] B [id number] S PYN [id number] [facility] O [id number] S [id number] [employer] P[place] 302/307 [id number] SP [id number] [employer] Health Maintenance Organization (HMO) [id number] Self [id number] BC[employer] [place] 306/806 [id number] SP [id number] BS [place] Commercial [id number] Self P [id number] BCBS [place] PPO 302/307 [id number] SP [id number] [place] PPO 302/307 [id number] SP [id number] BCBS OF [place] 306/806 [id number] SP [id number] Problems, Conditions, and Diagnoses Code Display Name Description Problem Type Effective Dates Data Source(s) E11.9 Type 2 diabetes mellitus without complic ations Type 2 diabetes mellitus without complic Diagnosis 12/21/2020 09:25:05 AM EDT [facility] G47.33 Obstructive sleep apnea (adult) (pediatr ic) Obstructive sleep apnea (adult) (pediatr Diagnosis 12/21/2020 09:25:05 AM EDT [facility] I10 Essential (primary) hypertension Essential (primary) h ypertension Diagnosis 12/21/2020 09:25:05 AM EDT [facility] K21.9 Gastro-esophageal reflux disease without esophagitis Gastro-esophageal reflux disease without Diagnosis 12/21/2020 09:25:05 AM EDT [facility] F32.9 Major depressive disorder, single episod e, unspecified Major depressive disorder, single episod Diagnosis 12/21/2020 09:25:05 AM EDT [facility] F41.9 Anxiety disorder, unspecified Anxiety disorder, unspec ified Diagnosis 12/21/2020 09:25:05 AM EDT [facility] E78.5 Hyperlipidemia, unspecified Hyperlipidemia, unspecifie d Diagnosis 12/21/2020 09:25:05 AM EDT [facility] I48.0 Paroxysmal atrial fibrillation Paroxysmal atrial fibri llation Diagnosis 12/21/2020 09:25:05 AM EDT [facility] K74.60 Cirrhosis Cirrhosis [id number] 03/03/2021 12:00:00 AM ED T [facility] Surgeries/Procedures Procedure Description Date Indications Data Source(s) OFFICE OUTPATIENT VISIT 5 MINUTES 03/23/2021 12:00:00 AM EDT [facility] ([facility]) OFFICE OUTPATIENT VISIT 25 MINUTES 03/08/2021 12:00:00 AM EDT MEDGIL ([facility]) OFFICE OUTPATIENT VISIT 25 MINUTES 03/03/2021 12:00:00 AM EDT [facility] ([facility]) OFFICE OUTPATIENT VISIT 25 MINUTES 02/28/2021 12:00:00 AM EDT [facility] TROPONIN QUANTITATIVE <td>TROPONIN I</td><td>Routine</td><td>02/23/2021</td><td></td><td> </td> 02/23/2021 12:00:00 AM EDT [facility] BLOOD COUNT COMPLETE AUTO&AUTO DIFRNTL WBC COUNT <td>C BC AND DIFFERENTIAL</td><td>Routine</td><td>02/23/2021</td><td></td><td> </td> 02/23/2021 12:00:00 AM EDT [facility] THYROID STIMULATING HORMONE TSH <td>TSH</td><td>Routine</td><td>02/23/2021</td><td></td><td> </td> 02/23/2021 12:00:00 AM EDT [facility] HEPATIC FUNCTION PANEL <td>HEPATIC FUNCTION PANEL</td><td>Routine</td><td>02/23/2021</td><td></td><td> </td> 02/23/2021 12:00:00 AM EDT [facility] BASIC METABOLIC PANEL CALCIUM TOTAL <td>BASIC METABOLI C PANEL</td><td>Routine</td><td>02/23/2021</td><td></td><td> </td> 02/23/2021 12:00:00 AM [facility] ARTHROSCOPY SHOULDER DISTAL CLAVICULECTOMY 02/08/2021 12:00:00 AM EDCleo BARBA ([facility], ) SHOULDER SCOPE BONE SHAVING 02/08/2021 12:00:00 AM EDCleo BARBA ([facility], ) ARTHROSCOPY SHOULDER ROTATOR CUFF REPAIR 02/08/2021 12 :00:00 AM SHAYAN BARBA ([facility], ) ECG ROUTINE ECG W/LEAST 12 LDS W/I&R 01/31/2021 12:00: 00 AM EDCleo BARBA ([facility]) OFFICE OUTPATIENT VISIT 25 MINUTES 01/31/2021 12:00:00 AM EDCleo BARBA ([facility]) OFFICE OUTPATIENT VISIT 25 MINUTES 01/17/2021 12:00:00 AM EDCleo BARBA ([facility], ) OFFICE OUTPATIENT VISIT 15 MINUTES 12/20/2020 12:00:00 AM EDCleo BARBA ([facility], ) OFFICE OUTPATIENT VISIT 25 MINUTES 12/20/2020 12:00:00 AM EDCleo MEDGIL ([facility], ) Inject/Drain Arthrocentesis Major Joint/Bursa/Ganglion Cyst 12/15/2020 12:00:00 AM EDCleo BARBA ([facility]) OFFICE OUTPATIENT VISIT 25 MINUTES 12/15/2020 12:00:00 AM EDT [facility]) OFFICE OUTPATIENT VISIT 25 MINUTES 11/10/2020 12:00:00 AM EDT [facility] ([facility]) Colonoscopy Flexible Proximal To Splenic Flexure W/Biopsy Si ngle/ 11/09/2020 12:00:00 AM EDT [facility] ([facility]) Colonoscopy 11/09/2020 12:00:00 AM [facility] ECG ROUTINE ECG W/LEAST 12 LDS W/I&R <td>POCT AMB EKG</td><td>Routine</td><td>10/28/2020</td><td> Paroxysmal atrial fibrillation Hypertension, unspecified type</td><td></td> 10/28/2020 12:00:00 AM EDT Hypertension, unspecified typeParoxysmal atrial fibrillation [facility] Hypertension, unspecified type Paroxysmal atrial fibrillation OFFICE OUTPATIENT VISIT 15 MINUTES 10/07/2020 12:00:00 AM EDT [facility] ([facility] ) OFFICE OUTPATIENT NEW 45 MINUTES 09/22[facility]2020 [facility] Trans Care SRV W/I 14D Of DC, Comm W/I 2 Dys Med Rec 09/08/2020 12:00:00 AM EDT [facility] ([facility] ) Results ID Date Data Source [id number] 03/14/2021 11:38:00 PM EDT [facility] ([facility]) Name Value Range Interpretation Code Description Data Yuridia rce(s) Supporting Document(s) ABG Partial Pressure Co2 37.6 mmHg 35.0-45.0 [facility] ([facility]) ABG pH (Arterial) 7.449 units 7.350-7.450 [facility] ABG Partial Pressure O2 78.1 mmHg 75.0-100.0 [facility] T ([facility]) ABG Hco3 25.5 meq/L 22.0-26.0 [facility] ABG Total Co2 26.6 meq/L 22.0-29.0 [facility] ([facility]) ABG Base Excess 1.6 [facility] ([facility]) ABG O2 Saturation 95.4 % 95.0-99.0 [facility] ([facility]) ABG Standard Hco3 25.9 meq/L 22.0-26.0 [facility] ([facility]) ID Date Data Source [id number] 03/14/2021 11:36:00 PM EDT [facility] ([facility]) Name Value Range Interpretation Code Description Data Yuridia rce(s) Supporting Document(s) Influenza A Amplification Laboratory test result [facility] ([facility]) Negative results do not preclude influen za or RSV virus infection and should not be used as the sole basis for treatment or other patient management decisions. Influenza B Amplification Laboratory test result [facility] ([facility]) Negative results do not preclude influen za or RSV virus infection and should not be used as the sole basis for treatment or other patient management decisions. RSV Amplification Laboratory test result [facility] ([facility]) Negative results do not preclude influen za or RSV virus infection and should not be used as the sole basis for treatment or other patient management decisions. Laboratory test finding (navigational concept) Laboratory test result [facility] ([facility]) A false negative result may occur [...] pathogens. DISCLAIMER: Testing was performed using the [employer] SARS-CoV-2 test. This test was developed and its performance characteristics determined by [employer]. This test has not been FDA cleared [...] or revoked sooner. ID Date Data Source [id number] 03/14/2021 11:36:00 PM EDT [facility] Name Value Range Interpretation Code Description Data Yuridia rce(s) Supporting Document(s) SARS coronavirus 2 RNA [Presence] in Res piratory specimen by KANA with probe detection NEGATIVE [facility] This lab was ordered by [facility] a nd reported by [facility]. ID Date Data Source [id number] 03/14/2021 09:10:00 PM EDT [facility] Name Value Range Interpretation Code Description Data Yuridia rce(s) Supporting Document(s) Appearance, Urine RFX Laboratory test result [facility] Color, Urine RFX Laboratory test result [facility] PH,Urine RFX 5.0 units 5.0-9.0 [facility] Specific [place] Ur Auto RFX 1.029 1.002-1.035 [facility] ([facility]) Protein, Urine Auto RFX Laboratory test result [facility] Glucose, Urine (Ua) Auto RFX Laboratory test result [facility] Ketone, Urine Auto RFX Laboratory test result [facility] Nitrite, Urine Auto RFX Laboratory test result [facility] Urobilinogen, Urine Auto RFX 4.0 mg/dL 0.0-2.0 [facility] Bilirubin, Urine Auto RFX Laboratory test result [facility] ([facility]) WBC, Urine Auto RFX 5 /HPF 0-3 [facility] Blood, Urine Blood RFX Laboratory test result [facility] ([facility]) Leukocyte Esterase Ur Auto RFX Laboratory test result [facility] ([facility]) Squam Epithelial Cell Ur Aurfx 0 /HPF 0-6 [facility] RBC, Urine Auto RFX 0 /HPF 0-3 [facility] ([facility]) Bacteria, Urine Auto RFX Laboratory test result [facility] ([facility]) Hyaline Cast, Urine Auto RFX 0 /LPF 0-1 M [facility]ENT ([facility]) Mucus, Urine RFX Laboratory test result [facility] ([facility]) ID Date Data Source [id number] 03/14/2021 09:10:00 PM EDT [facility] ([facility]) Name Value Range Interpretation Code Description Data Yuridia rce(s) Supporting Document(s) aPTT in Blood by Coagulation assay 37.8 s 25.9-37.0 [facility] ([facility]) ID Date Data Source [id number] 03/14/2021 09:10:00 PM EDT [facility] ([facility]) Name Value Range Interpretation Code Description Data Yuridia rce(s) Supporting Document(s) Prothrombin Time 14.5 s 12.7-14.5 [facility] ([facility]) Inr 1.09 [facility] ([facility]) THERAPUTIC HUMAN INR VALUES INDICATIONS NORMAL RANGES PROPHYLAXIS/TREATMENT OF: VENOUS THROMBOSIS 2.0-3.0 PULMONARY EMBOLISM 2.0-3.0 PREVENTION OF SYSTEMIC EMBOLISM FROM: TISSUE HEART VALVES 2.0-3.0 ACUTE MYOCARDIAL INFARCTION 2.0-3.0 VALVULAR HEART DISEASE 2.0-3.0 ATRIAL FIBRILLATION 2.0-3.0 MECHANICAL VALVES(HIGH RISK) 2.5-3.5 RECURRENT MYOCARDIAL INFARCTION 2.5-3.5 ID Date Data Source [id number] 03/14/2021 09:10:00 PM EDT [facility] ([facility]) Name Value Range Interpretation Code Description Data Yuridia rce(s) Supporting Document(s) White Blood Count 10.5 10 4.0-10.0 [facility] ([facility]) Red Blood Count 4.10 10 4.30-6.10 [facility] ([facility] [facility]) Hemoglobin 12.2 g/dL 13.5-17.5 [facility] ([facility]) Mean Corpuscular Hemoglobin 29.8 pg 27.0-33.0 [facility] ([facility]) Hematocrit 38.1 % 42.0-52.0 [facility]) Mean Corpuscular Volume 92.9 fl 80.0-96.0 [facility] ([facility]) Platelet Count, Automated 188 10 150-450 [facility] ([facility]) Mean Corpuscular HGB Conc 32.0 g/dL 32.0-36.5 [facility] ([facility]) Red Cell Distribution Width 14.3 % 11.5-14.5 [facility] ([facility]) Riley % 11.4 % 2.0-8.0 [facility] ([facility]) Lymph % 22.6 % 24.0-44.0 [facility] Neutrophils % 62.5 % 36.0-66.0 [facility] ([facility]) Baso % 1.0 % 0.0-1.0 [facility]) Eos % 2.1 % 0.0-3.0 [facility] Neutrophils # 6.6 10 1.5-8.5 [facility] ([facility]) Immature Granulocyte % 0.4 % 0-3.0 [facility] ([facility]) Nucleated Red Blood Cell % 0.0 % 0-0 [facility] ([facility]) Eos # 0.2 10 0.0-0.5 [facility]) Lymph # 2.4 10 1.5-5.0 [facility] Riley # 1.2 10 0.0-0.8 [facility] Baso # 0.1 10 0.0-0.2 [facility] ID Date Data Source [id number] 03/14/2021 09:10:00 PM EDT [facility] ([facility]) Name Value Range Interpretation Code Description Data Yuridia rce(s) Supporting Document(s) Lipoprotein lipase [Enzymatic activity/volume] in Serum or P lasma 411 U/L 73-393 [facility] ([facility]) Lactate [Mass/volume] in Serum or Plasma 0.9 mmol/L 0.4-2.0 [facility] ([facility]) Y/N query for Sepsis Lactate Rule: Y Ammonia [Mass/volume] in Blood 40 uMOL/L [facility] ([facility]) ID Date Data Source [id number] 03/14/2021 09:10:00 PM EDT [facility] ([facility]) Name Value Range Interpretation Code Description Data Yuridia rce(s) Supporting Document(s) Glucose, Fasting 91 mg/dL 70-100 [facility] ([facility]) Blood Urea Nitrogen 17 mg/dL 7-18 [facility] ([facility]) Creatinine For GFR 0.74 mg/dL 0.70-1.30 [facility] ([facility]) Glomerular Filtration Rate Laboratory test result [facility] ([facility]) <content>Units are mL/min/1.73 m2</content>
<content></content>
<content>Chronic Kidney Disease Staging per NKF:</content>
<content></content>
<content>Stage I & II GFR >=60 Normal to Mildly Decreased</content>
<content>Stage III GFR 30- 59 Moderately Decreased</content>
<content>Stage IV GFR 15-29 Severely Decreased</content>
<content>Stage V GFR <15 Very Little GFR Left</content>
<content>ESRD GFR <15 on STRATEGIES ANALYST</content>
<content></content> Sodium Level 140 meq/L 136-145 [facility] ([facility]) Potassium Serum 3.9 meq/L 3.5-5.1 [facility] ([facility]) Carbon Dioxide Level 28 meq/L 21-32 [facility] ([facility]) Anion Gap 6 meq/L 8-16 [facility] ([facility]) Chloride Level 106 meq/L 98-107 [facility] ([facility]) Calcium Level 9.3 mg/dL 8.5-10.1 [facility] ([facility]) ID Date Data Source [id number] 03/14/2021 09:10:00 PM EDT [facility] ([facility]) Name Value Range Interpretation Code Description Data Yuridia rce(s) Supporting Document(s) Ast/Sgot 21 U/L 7-37 [facility] ([facility]) Alkaline Phosphatase 70 U/L 45-117 [facility] ([facility]) Alt/SGPT 30 U/L 12-78 [facility] ([facility]) Bilirubin,Direct 0.4 mg/dL 0.0-0.2 [facility] ([facility]) Bilirubin,Total 1.0 mg/dL 0.2-1.0 [facility] ([facility]) Albumin 3.3 GM/DL 3.2-5.2 [facility] ([facility]) Total Protein 7.4 GM/DL 6.4-8.2 [facility] ([facility]) Albumin/Globulin Ratio 0.8 [facility] ([facility]) ID Date Data Source [id number] 03/14/2021 09:10:00 PM EDT [facility] ([facility]) Name Value Range Interpretation Code Description Data [facility](s) Supporting Document(s) CPK Creatine Phosphokinase 128 U/L 39-308 [facility] ([facility]) CK-MB Value Mass 2.8 ng/mL [facility] ([facility]) MB/CK Relative Index 2.19 [facility] ([facility]) <content>DIAGNOSIS CRITERIA</content>
<content>MMB ng/ml Relative Index (RI)</content>
<content>NON-AMI < or = 5 N/A</content>
<content>ENRIQUEZ ZONE > 5 < or = 4</content>
<content>AMI > 5 > 4</content>
<content></content> Troponin I Laboratory test result [facility] <content>Troponin I Reference Interval f or Siemens [place] LOCI:</content>
<content></content>
<content>99th Percentile= 0.00-0.045 ng/ml</content>
<content></content>
<content>Risk Stratification:</content>
<content><= 0.10 ng/ml Decreased Risk for Adverse Clinical</content>
<content>Events.</content>
<content>0.10-1.50 ng/ml Increased Risk for Adverse Clinical</content>
<content>Events. Evaluation of additional</content>
<content>criterion and/or repeat testing in 2-6</content>
<content>hours is suggested to rule out myocardial</content>
<content>damage.</content>
<content>>= 1.50 ng/ml Indicative of Myocardial Injury.</content>
<content></content> ID Date Data Source [id number] 03/08/2021 11:38:00 AM EDT [facility] ([facility]) Name Value Range Interpretation Code Description Data Yuridia rce(s) Supporting Document(s) Creatinine 0.8 mg/dL 0.6-1.3 [facility] ([facility]) Glucose [Mass/volume] in Serum or Plasma 108 mg/dL 74-99 [facility] ([facility]) 100-125 mg/dL PRE-DIABETES/FASTING >126 mg/dL DIABETES/FASTING Urea nitrogen [Mass/volume] in Serum or Plasma 18 mg/dL 7-18 [facility] ([facility]) Sodium [Moles/volume] in Serum or Plasma 136 meq/L 136-145 [facility] ([facility]) Chloride [Moles/volume] in Serum or Plasma 100 meq/L 98-107 [facility] ([facility]) Potassium [Moles/volume] in Serum or Plasma 4.3 meq/L 3.5-5.1 [facility] ([facility]) Calcium [Mass/volume] in Serum or Plasma 9.5 mg/dL 8.5-10.1 [facility] ([facility]) Carbon dioxide, total [Moles/volume] in Serum or Plasma 31 meq/L 21 -32 [facility] ([facility]) Glomerular filtration rate/1.73 sq M pre dicted among non-blacks [Volume Rate/Area] in Serum or Plasma by Creatinine-based formula (MDRD) Laboratory test result [facility] ([facility] ) Glomerular filtration rate/1.73 sq M pre dicted among blacks [Volume Rate/Area] in Serum or Plasma by Creatinine-based formula (MDRD) Laboratory test result [facility] ([facility]) <content>CHRONIC KIDNEY DISEASE STAGING PER NKF</content>
<content></content>
<content>STAGE I & II GFR >= 60 NORMAL TO MILDLY DECREASED</content>
<content>STAGE III GFR 30-59 MODERATELY DECREASED</content>
<content>STAGE IV GFR 15-29 SEVERELY DECREASED</content>
<content>STAGE V GFR <15 VERY LITTLE GFR LEFT</content>
<content>ESRD GFR <15 ON STRATEGIES ANALYST</content>
<content></content> ID Date Data Source [id number] 03/08/2021 11:38:00 AM EDT [facility] ([facility]) Name Value Range Interpretation Code Description Data Yuridia rce(s) Supporting Document(s) Magnesium 1.9 mg/dL 1.8-2.4 [facility] ([facility]) ID Date Data Source [id number] 03/03/2021 12:14:00 PM EDT [facility] ([facility]) Name Value Range Interpretation Code Description Data Yuridia rce(s) Supporting Document(s) Glucose [Mass/volume] in Serum or Plasma 175 mg/dL 74-99 [facility] ([facility]) 100-125 mg/dL PRE-DIABETES/FASTING >126 mg/dL DIABETES/FASTING Creatinine 0.7 mg/dL 0.6-1.3 [facility] Urea nitrogen [Mass/volume] in Serum or Plasma 21 mg/dL 7-18 [facility] ([facility]) Chloride [Moles/volume] in Serum or Plasma 104 meq/L 98-107 [facility] ([facility]) Potassium [Moles/volume] in Serum or Plasma 4.4 meq/L 3.5-5.1 [facility] ([facility]) Sodium [Moles/volume] in Serum or Plasma 140 meq/L 136-145 [facility] ([facility]) Calcium [Mass/volume] in Serum or Plasma 9.2 mg/dL 8.5-10.1 [facility] ([facility]) Glomerular filtration rate/1.73 sq M pre dicted among non-blacks [Volume Rate/Area] in Serum or Plasma by Creatinine-based formula (MDRD) Laboratory test result [facility] ([facility] ) Carbon dioxide, total [Moles/volume] in Serum or Plasma 31 meq/L 21 -32 [facility] Glomerular filtration rate/1.73 sq M pre dicted among blacks [Volume Rate/Area] in Serum or Plasma by Creatinine-based formula (MDRD) Laboratory test result [facility] ([facility]) <content>CHRONIC KIDNEY DISEASE STAGING PER NKF</content>
<content></content>
<content>STAGE I & II GFR >= 60 NORMAL TO MILDLY DECREASED</content>
<content>STAGE III GFR 30-59 MODERATELY DECREASED</content>
<content>STAGE IV GFR 15-29 SEVERELY DECREASED</content>
<content>STAGE V GFR <15 VERY LITTLE GFR LEFT</content>
<content>ESRD GFR <15 ON STRATEGIES ANALYST</content>
<content></content> ID Date Data Source [id number] 03/03/2021 12:14:00 PM EDT [facility] ([facility]) Name Value Range Interpretation Code Description Data Yuridia rce(s) Supporting Document(s) Magnesium 1.5 mg/dL 1.8-2.4 [facility] ([facility]) ID Date Data Source [id number] 02/28/2021 11:23:00 AM EDT [facility] ([facility]) Name Value Range Interpretation Code Description Data Yuridia rce(s) Supporting Document(s) Ferritin [Mass/volume] in Serum or Plasma 33 ng/mL 26-388 [facility] ([facility]) ID Date Data Source [id number] 02/28/2021 11:23:00 AM EDT [facility] ([facility]) Name Value Range Interpretation Code Description Data Yuridia rce(s) Supporting Document(s) Hepatitis B virus surface Ab [Presence] in Serum by Im maurice Laboratory test result [facility] ([facility] ) ID Date Data Source [id number] 02/28/2021 11:23:00 AM EDT [facility] ([facility]) Name Value Range Interpretation Code Description Data Yuridia rce(s) Supporting Document(s) Total Iron Binding Capacity 456 ug/dL 250-450 [facility] ([facility]) Percent Saturation 11.4 % 19.7-50.0 [facility] ([facility]) Iron (Fe) 52 ug/dL 65-175 [facility] ([facility]) ID Date Data Source [id number] 02/28/2021 11:23:00 AM EDT [facility]) Name Value Range Interpretation Code Description Data Yuridia rce(s) Supporting Document(s) Ammonia [Mass/volume] in Blood 48 uMOL/L [facility] ([facility]) ID Date Data Source [id number] 02/28/2021 11:23:00 AM EDT [facility] ([facility]) Name Value Range Interpretation Code Description Data Yuridia rce(s) Supporting Document(s) Hepatitis B Surface Antigen Laboratory test result [facility] Hepatitis C Virus Kelly Index 0.1 INDEX [facility] ([facility] Negative Not infected with HCV, unless recent infection is suspected or other evidence exists to indicate HCV infection. Hepatitis B Core Antibody Igm Laboratory test result [facility] ([facility]) Hepatitis A Antibody Igm Laboratory test result [facility]) ID Date Data Source [id number] 02/28/2021 11:23:00 AM EDT [facility] Name Value Range Interpretation Code Description Data Yuridia rce(s) Supporting Document(s) Inr 1.18 [facility] ([facility]) THERAPUTIC HUMAN INR VALUES INDICATIONS NORMAL RANGES PROPHYLAXIS/TREATMENT OF: VENOUS THROMBOSIS 2.0-3.0 PULMONARY EMBOLISM 2.0-3.0 PREVENTION OF SYSTEMIC EMBOLISM FROM: TISSUE HEART VALVES 2.0-3.0 ACUTE MYOCARDIAL INFARCTION 2.0-3.0 VALVULAR HEART DISEASE 2.0-3.0 ATRIAL FIBRILLATION 2.0-3.0 MECHANICAL VALVES(HIGH RISK) 2.5-3.5 RECURRENT MYOCARDIAL INFARCTION 2.5-3.5 Prothrombin Time 15.4 s 12.7-14.5 [facility] ([facility]) ID Date Data Source [id number] 02/28/2021 11:21:00 AM EDT [facility] ([facility]) Name Value Range Interpretation Code Description Data Yuridia rce(s) Supporting Document(s) Hepatitis B virus surface Ab [Presence] in Serum by [facility] Laboratory test result [facility] ID Date Data Source [id number] 02/28/2021 11:20:00 AM EDT [facility] ([facility]) Name Value Range Interpretation Code Description Data Yuridia rce(s) Supporting Document(s) Erythrocytes [#/volume] in Blood by Automated count 4.40 x10*6/UL 4.2 0-6.30 [facility] Leukocytes [#/volume] in Blood by Automated count 9.2 x10*3/UL 4.1-10 .9 [facility] Hemoglobin [Mass/volume] in Blood 12.8 g/dL 12.0-18.0 [facility] MCV 88.2 fL 80.0-97.0 [facility] ([facility]) Hematocrit [Volume Fraction] of Blood by Automated count 38.8 % 3 7.0-51.0 [facility] MCH 29.1 pg 26.0-32.0 [facility] ([facility]) MCHC 33.0 g/dL 31.0-38.0 [facility] ([facility]) Erythrocyte distribution width [Ratio] by Automated count 13.9 % 11.6-13.7 [facility] ([facility]) MPV 8.5 FL 7.8-11.0 [facility] ([facility]) Lymph % 20.5 % 10.0-58.5 [facility] ([facility]) Platelets [#/volume] in Blood by Automated count 236 x10*3/UL 140-440 [facility] ([facility]) Neut % 74.4 % 37.0-92.0 [facility]) Mid % 5.1 % 1.7-9.3 [facility] Lymph # 1.9 x10*3/UL 0.6-4.1 [facility] ([facility]) Mid # 0.4 x10*3/UL 0.1-0.6 [facility] ([facility]) Neut # 6.9 x10*3/UL 2.0-7.8 [facility] ([facility]) ID Date Data Source [id number] 02/28/2021 11:20:00 AM EDT [facility] ([facility]) Name Value Range Interpretation Code Description Data Yuridia rce(s) Supporting Document(s) Glucose [Mass/volume] in Serum or Plasma 111 mg/dL 74-99 [facility] ([facility]) 100-125 mg/dL PRE-DIABETES/FASTING >126 mg/dL DIABETES/FASTING Urea nitrogen [Mass/volume] in Serum or Plasma 18 mg/dL 7-18 [facility] ([facility]) Potassium [Moles/volume] in Serum or Plasma 4.0 meq/L 3.5-5.1 [facility] ([facility]) Creatinine 0.7 mg/dL 0.6-1.3 [facility] ([facility]) Sodium [Moles/volume] in Serum or Plasma 140 meq/L 136-145 [facility] ([facility]) Carbon dioxide, total [Moles/volume] in Serum or Plasma 29 meq/L 21 -32 [facility] ([facility]) Calcium [Mass/volume] in Serum or Plasma 9.5 mg/dL 8.5-10.1 [facility] ([facility]) Chloride [Moles/volume] in Serum or Plasma 103 meq/L 98-107 [facility] ([facility]) Alkaline phosphatase isoenzyme [Units/volume] in Serum or Pl asma 63 mg/dL 46-116 [facility] ([facility]) Aspartate aminotransferase [Enzymatic activity/volume] in Serum or Plasma 27 U/L 15-37 [facility] ([facility] ) Total Bilirubin 0.7 mg/dL 0.2-1.0 [facility] Albumin [Mass/volume] in Serum or Plasma 3.3 g/dL 3.4-5.0 [facility] Alanine aminotransferase [Enzymatic activity/volume] in Seru m or Plasma 30 U/L 12-78 [facility] Proteinase 3 Ab [Units/volume] in Serum 7.6 g/dL 6.4-8.2 [facility] Glomerular filtration rate/1.73 sq M pre dicted among blacks [Volume Rate/Area] in Serum or Plasma by Creatinine-based formula (MDRD) Laboratory test result [facility] <content>CHRONIC KIDNEY DISEASE STAGING PER NKF</content>
<content></content>
<content>STAGE I & II GFR >= 60 NORMAL TO MILDLY DECREASED</content>
<content>STAGE III GFR 30-59 MODERATELY DECREASED</content>
<content>STAGE IV GFR 15-29 SEVERELY DECREASED</content>
<content>STAGE V GFR <15 VERY LITTLE GFR LEFT</content>
<content>ESRD GFR <15 ON STRATEGIES ANALYST</content>
<content></content> Glomerular filtration rate/1.73 sq M pre dicted among non-blacks [Volume Rate/Area] in Serum or Plasma by Creatinine-based formula (MDRD) Laboratory test result [facility] A/G Ratio 0.77 CALC 1.00-1.90 [facility] ([facility]) ID Date Data Source [id number] 02/28/2021 11:20:00 AM EDT [facility] Name Value Range Interpretation Code Description Data Yuridia rce(s) Supporting Document(s) Urine Color Laboratory test result [facility] ([facility] Urine PH 6.0 units 5.0-9.0 [facility] ([facility]) Urine Appearance Laboratory test result [facility] Specific gravity of Urine 1.020 1.005-1.030 [facility] ([facility]) Urine Protein Laboratory test result 0-0 [facility] ([facility] Urine Blood Laboratory test result [facility]) Urine Leukocytes Laboratory test result [facility] ([facility]) Glucose [Presence] in Urine [facility] Urine Ketone Laboratory test result [facility] Urine Nitrite Laboratory test result [facility]) Urine Urobilinogen 0.2 mg/dL 0.2-1.0 [facility] ([facility]) Bilirubin.total [Mass/volume] in Serum or Plasma Laboratory test resu lt [facility] ([facility]) ID Date Data Source [id number] 02/23/2021 09:02:00 PM EDT [facility] ([facility]) Name Value Range Interpretation Code Description Data Yuridia rce(s) Supporting Document(s) Laboratory test finding (navigational concept) 0.01 ng/mL 0.00-0.08 [facility] ([facility]) ID Date Data Source [id number] 02/23/2021 06:29:00 PM EDT [facility] Name Value Range Interpretation Code Description Data Yuridia rce(s) Supporting Document(s) Laboratory test finding (navigational concept) 0.00 ng/mL 0.00-0.08 [facility] ([facility]) ID Date Data Source [id number] 02/23/2021 04:20:00 PM EDT [facility] Name Value Range Interpretation Code Description Data Yuridia rce(s) Supporting Document(s) Influenza A Amplification Laboratory test result [facility] ([facility]) Negative results do not preclude influen za or RSV virus infection and should not be used as the sole basis for treatment or other patient management decisions. Influenza B Amplification Laboratory test result [facility] Negative results do not preclude influen za or RSV virus infection and should not be used as the sole basis for treatment or other patient management decisions. RSV Amplification Laboratory test result [facility] Negative results do not preclude influen za or RSV virus infection and should not be used as the sole basis for treatment or other patient management decisions. Laboratory test finding (navigational concept) Laboratory test result [facility] ([facility]) A false negative result may occur [...] pathogens. DISCLAIMER: Testing was performed using the [employer] SARS-CoV-2 test. This test was developed and its performance characteristics determined by [employer]. This test has not been FDA cleared [...] or revoked sooner. ID Date Data Source [id number] 02/23/2021 04:20:00 PM EDT [facility] Name Value Range Interpretation Code Description Data Yuridia rce(s) Supporting Document(s) SARS coronavirus 2 RNA [Presence] in Res piratory specimen by KANA with probe detection NEGATIVE [facility] This lab was ordered by [facility] a nd reported by [facility]. ID Date Data Source [id number] 02/23/2021 04:12:00 PM EDT [facility] ([facility]) Name Value Range Interpretation Code Description Data Yuridia rce(s) Supporting Document(s) Hemoglobin 12.4 g/dL 13.5-17.5 [facility] White Blood Count 10.8 10 4.0-10.0 [facility] ([facility]) Red Blood Count 4.15 10 4.30-6.10 [facility] ([facility]) Hematocrit 38.4 % 42.0-52.0 [facility] ([facility]) Mean Corpuscular Volume 92.5 fl 80.0-96.0 [facility] ([facility]) Mean Corpuscular Hemoglobin 29.9 pg 27.0-33.0 [facility] ([facility]) Red Cell Distribution Width 13.8 % 11.5-14.5 [facility] ([facility]) Mean Corpuscular HGB Conc 32.3 g/dL 32.0-36.5 [facility] ([facility]) Platelet Count, Automated 211 10 150-450 [facility] ([facility]) Neutrophils % 66.8 % 36.0-66.0 [facility] ([facility]) Lymph % 19.9 % 24.0-44.0 [facility]) Riley % 9.5 % 2.0-8.0 [facility] Eos % 2.3 % 0.0-3.0 [facility] Immature Granulocyte % 0.4 % 0-3.0 [facility] ([facility]) Baso % 1.1 % 0.0-1.0 [facility] Neutrophils # 7.2 10 1.5-8.5 [facility] ([facility]) Nucleated Red Blood Cell % 0.0 % 0-0 [facility] ([facility]) Lymph # 2.1 10 1.5-5.0 [facility]) Eos # 0.3 10 0.0-0.5 [facility] Riley # 1.0 10 0.0-0.8 [facility] Baso # 0.1 10 0.0-0.2 [facility] ID Date Data Source [id number] 02/23/2021 04:12:00 PM EDT [facility] ([facility]) Name Value Range Interpretation Code Description Data Yuridia rce(s) Supporting Document(s) CK-MB Value Mass 3.3 ng/mL [facility] ([facility]) CPK Creatine Phosphokinase 102 U/L 39-308 [facility] ([facility]) MB/CK Relative Index 3.24 [facility] ([facility]) <content>DIAGNOSIS CRITERIA</content>
<content>MMB ng/ml Relative Index (RI)</content>
<content>NON-AMI < or = 5 N/A</content>
<content>ENRIQUEZ ZONE > 5 < or = 4</content>
<content>AMI > 5 > 4</content>
<content></content> Troponin I Laboratory test result [facility] <content>Troponin I Reference Interval f or [employer]ens [place] LOCI:</content>
<content></content>
<content>99th Percentile= 0.00-0.045 ng/ml</content>
<content></content>
<content>Risk Stratification:</content>
<content><= 0.10 ng/ml Decreased Risk for Adverse Clinical</content>
<content>Events.</content>
<content>0.10-1.50 ng/ml Increased Risk for Adverse Clinical</content>
<content>Events. Evaluation of additional</content>
<content>criterion and/or repeat testing in 2-6</content>
<content>hours is suggested to rule out myocardial</content>
<content>damage.</content>
<content>>= 1.50 ng/ml Indicative of Myocardial Injury.</content>
<content></content> ID Date Data Source [id number] 02/23/2021 04:12:00 PM EDT [facility] ([facility]) Name Value Range Interpretation Code Description Data Yuridia rce(s) Supporting Document(s) Alt/SGPT 32 U/L 12-78 [facility] ([facility]) Alkaline Phosphatase 67 U/L 45-117 [facility] ([facility]) Ast/Sgot 24 U/L 7-37 [facility] ([facility]) Bilirubin,Total 0.9 mg/dL 0.2-1.0 [facility] ([facility]) Bilirubin,Direct 0.3 mg/dL 0.0-0.2 [facility] ([facility]) Total Protein 7.2 GM/DL 6.4-8.2 [facility] ([facility]) Albumin/Globulin Ratio 0.8 [facility] ([facility]) Albumin 3.1 GM/DL 3.2-5.2 [facility] ID Date Data Source [id number] 02/23/2021 04:12:00 PM EDT [facility] ([facility]) Name Value Range Interpretation Code Description Data Yuridia rce(s) Supporting Document(s) Lipoprotein lipase [Enzymatic activity/volume] in Serum or P lasma 249 U/L 73-393 [facility] ([facility]) Natriuretic peptide.B prohormone N-Terminal [Mass/volu me] in Serum or Plasma 303 pg/mL [facility] ([facility] ) Thyrotropin [Units/volume] in Serum or Plasma by Detec tion limit <= 0.05 mIU/L 1.080 uIU/ML 0.358-3.740 [facility] ([facility] ) Thyroxine (T4) free [Mass/volume] in Serum or Plasma 1.07 ng/dL 0.76- 1.46 [facility] ([facility]) ID Date Data Source [id number] 02/23/2021 04:11:00 PM EDT [facility] ([facility]) Name Value Range Interpretation Code Description Data Yuridia rce(s) Supporting Document(s) Laboratory test finding (navigational concept) 0.00 ng/mL 0.00-0.08 [facility] ([facility]) ID Date Data Source [id number] 02/23/2021 04:10:00 PM EDT [facility] ([facility]) Name Value Range Interpretation Code Description Data Yuridia rce(s) Supporting Document(s) Laboratory test finding (navigational concept) 145 mg/dL 70-105 [facility] ([facility]) Laboratory test finding (navigational concept) 37.0 % 38.0-51.0 [facility] ([facility]) Laboratory test finding (navigational concept) 138 meq/L 136-145 [facility] ([facility]) Laboratory test finding (navigational concept) 5.2 mg/dL 4.5-5.3 [facility] ([facility]) Laboratory test finding (navigational concept) 100 meq/L 98-109 [facility] ([facility]) Laboratory test finding (navigational concept) 4.3 meq/L 3.5-5.1 [facility] ([facility]) Laboratory test finding (navigational concept) 20 mg/dL 8-26 [facility] ([facility]) Laboratory test finding (navigational concept) 27.0 MM/L 23.0-27.0 [facility] ([facility]) Laboratory test finding (navigational concept) 0.8 mg/dL 0.6-1.3 [facility] ([facility]) ID Date Data Source [id number] 01/31/2021 02:23:00 PM EDT [facility] ([facility]) Name Value Range Interpretation Code Description Data Yuridia rce(s) Supporting Document(s) Glucose [Mass/volume] in Serum or Plasma 75 mg/dL 74-99 [facility] ([facility]) 100-125 mg/dL PRE-DIABETES/FASTING >126 mg/dL DIABETES/FASTING Sodium [Moles/volume] in Serum or Plasma 139 meq/L 136-145 [facility] ([facility]) Urea nitrogen [Mass/volume] in Serum or Plasma 14 mg/dL 7-18 [facility] ([facility]) Creatinine 0.7 mg/dL 0.6-1.3 [facility] Chloride [Moles/volume] in Serum or Plasma 103 meq/L 98-107 [facility] ([facility]) Carbon dioxide, total [Moles/volume] in Serum or Plasma 30 meq/L 21 -32 [facility] ([facility]) Potassium [Moles/volume] in Serum or Plasma 4.5 meq/L 3.5-5.1 [facility] ([facility]) Alkaline phosphatase isoenzyme [Units/volume] in Serum or Pl asma 63 mg/dL 46-116 [facility] ([facility]) Calcium [Mass/volume] in Serum or Plasma 9.5 mg/dL 8.5-10.1 [facility] ([facility]) Total Bilirubin 0.8 mg/dL 0.2-1.0 [facility] ([facility]) Albumin [Mass/volume] in Serum or Plasma 3.4 g/dL 3.4-5.0 [facility] ([facility]) Alanine aminotransferase [Enzymatic activity/volume] in Seru m or Plasma 35 U/L 12-78 [facility] ([facility]) Aspartate aminotransferase [Enzymatic activity/volume] in Serum or Plasma 27 U/L 15-37 [facility] ([facility] ) Proteinase 3 Ab [Units/volume] in Serum 7.2 g/dL 6.4-8.2 [facility] ([facility]) Glomerular filtration rate/1.73 sq M pre dicted among non-blacks [Volume Rate/Area] in Serum or Plasma by Creatinine-based formula (MDRD) Laboratory test result [facility] ([facility] ) Glomerular filtration rate/1.73 sq M pre dicted among blacks [Volume Rate/Area] in Serum or Plasma by Creatinine-based formula (MDRD) Laboratory test result [facility] ([facility]) <content>CHRONIC KIDNEY DISEASE STAGING PER NKF</content>
<content></content>
<content>STAGE I & II GFR >= 60 NORMAL TO MILDLY DECREASED</content>
<content>STAGE III GFR 30-59 MODERATELY DECREASED</content>
<content>STAGE IV GFR 15-29 SEVERELY DECREASED</content>
<content>STAGE V GFR <15 VERY LITTLE GFR LEFT</content>
<content>ESRD GFR <15 ON STRATEGIES ANALYST</content>
<content></content> A/G Ratio 0.89 CALC 1.00-1.90 [facility] ([facility]) ID Date Data Source [id number] 01/31/2021 02:23:00 PM EDT [facility] ([facility]) Name Value Range Interpretation Code Description Data Yuridia rce(s) Supporting Document(s) Magnesium 1.6 mg/dL 1.8-2.4 [facility] ([facility]) ID Date Data Source [id number] 01/31/2021 02:23:00 PM EDT [facility] ([facility]) Name Value Range Interpretation Code Description Data Yuridia rce(s) Supporting Document(s) Hemoglobin A1c/Hemoglobin.total in Blood 6.9 % [facility] ([facility]) Lab Result Notes: Pre-Diabetes 5.7 - 6.4 % Diabetes = or > 6.5% Glucose mean value [Mass/volume] in Blood Estimated fr om glycated hemoglobin 151 mg/dL 60-110 [facility] ([facility] ) ID Date Data Source [id number] 01/31/2021 02:23:00 PM EDT [facility] ([facility]) Name Value Range Interpretation Code Description Data Yuridia rce(s) Supporting Document(s) Hemoglobin A1c/Hemoglobin.total in Blood Laboratory test result [facility] ([facility]) Magnesium, Serum Laboratory test result [facility] ([facility]) ID Date Data Source [id number] 11/10/2020 12:58:00 PM EDT [facility] Name Value Range Interpretation Code Description Data Yuridia rce(s) Supporting Document(s) Glucose [Mass/volume] in Serum or Plasma 104 mg/dL 74-99 [facility] ([facility]) 100-125 mg/dL PRE-DIABETES/FASTING >126 mg/dL DIABETES/FASTING Creatinine 0.7 mg/dL 0.6-1.3 [facility] Urea nitrogen [Mass/volume] in Serum or Plasma 14 mg/dL 7-18 [facility] ([facility]) Potassium [Moles/volume] in Serum or Plasma 4.5 meq/L 3.5-5.1 [facility] ([facility]) Sodium [Moles/volume] in Serum or Plasma 137 meq/L 136-145 [facility] ([facility]) Chloride [Moles/volume] in Serum or Plasma 103 meq/L 98-107 [facility] ([facility]) Carbon dioxide, total [Moles/volume] in Serum or Plasma 28 meq/L 21 -32 [facility] ([facility]) Alkaline phosphatase isoenzyme [Units/volume] in Serum or Pl asma 67 mg/dL 46-116 [facility] ([facility]) Calcium [Mass/volume] in Serum or Plasma 9.8 mg/dL 8.5-10.1 [facility] ([facility]) Aspartate aminotransferase [Enzymatic activity/volume] in Serum or Plasma 24 U/L 15-37 [facility] ([facility] ) Total Bilirubin 0.9 mg/dL 0.2-1.0 [facility] ([facility]) Alanine aminotransferase [Enzymatic activity/volume] in Seru m or Plasma 27 U/L 12-78 [facility] ([facility]) Albumin [Mass/volume] in Serum or Plasma 3.4 g/dL 3.4-5.0 [facility] ([facility]) A/G Ratio 0.85 CALC 1.00-1.90 [facility]) Glomerular filtration rate/1.73 sq M pre dicted among non-blacks [Volume Rate/Area] in Serum or Plasma by Creatinine-based formula (MDRD) Laboratory test result [facility] Proteinase 3 Ab [Units/volume] in Serum 7.4 g/dL 6.4-8.2 [facility] Glomerular filtration rate/1.73 sq M pre dicted among blacks [Volume Rate/Area] in Serum or Plasma by Creatinine-based formula (MDRD) Laboratory test result [facility] <content>CHRONIC KIDNEY DISEASE STAGING PER NKF</content>
<content></content>
<content>STAGE I & II GFR >= 60 NORMAL TO MILDLY DECREASED</content>
<content>STAGE III GFR 30-59 MODERATELY DECREASED</content>
<content>STAGE IV GFR 15-29 SEVERELY DECREASED</content>
<content>STAGE V GFR <15 VERY LITTLE GFR LEFT</content>
<content>ESRD GFR <15 ON STRATEGIES ANALYST</content>
<content></content> ID Date Data Source [id number] 11/10/2020 12:58:00 PM EDT [facility] ([facility]) Name Value Range Interpretation Code Description Data Yuridia rce(s) Supporting Document(s) Hemoglobin A1c/Hemoglobin.total in Blood 6.7 % [facility] Lab Result Notes: Pre-Diabetes 5.7 - 6.4 % Diabetes = or > 6.5% Glucose mean value [Mass/volume] in Blood Estimated fr om glycated hemoglobin 146 mg/dL 60-110 [facility] ID Date Data Source [id number] 11/10/2020 12:58:00 PM EDT [facility] ([facility] Name Value Range Interpretation Code Description Data Yuridia rce(s) Supporting Document(s) Leukocytes [#/volume] in Blood by Automated count 9.0 x10*3/UL 4.1-10 .9 [facility] Hemoglobin [Mass/volume] in Blood 14.4 g/dL 12.0-18.0 [facility] Hematocrit [Volume Fraction] of Blood by Automated count 43.1 % 3 7.0-51.0 [facility] Erythrocytes [#/volume] in Blood by Automated count 4.70 x10*6/UL 4.2 0-6.30 [facility] MCHC 33.5 g/dL 31.0-38.0 [facility] ([facility]) MCH 30.7 pg 26.0-32.0 [facility] ([facility]) MCV 91.7 fL 80.0-97.0 [facility] ([facility]) MPV 8.2 FL 7.8-11.0 [facility] ([facility]) Platelets [#/volume] in Blood by Automated count 237 x10*3/UL 140-440 [facility] Erythrocyte distribution width [Ratio] by Automated count 12.9 % 11.6-13.7 [facility] ([facility]) Mid % 5.7 % 1.7-9.3 [facility] ([facility]) Lymph % 20.4 % 10.0-58.5 [facility] ([facility]) Neut % 73.9 % 37.0-92.0 [facility]) Lymph # 1.8 x10*3/UL 0.6-4.1 [facility] ([facility]) Neut # 6.6 x10*3/UL 2.0-7.8 [facility] ([facility]) Mid # 0.6 x10*3/UL 0.1-0.6 [facility] ([facility]) ID Date Data Source [id number] 11/10/2020 12:58:00 PM EDT [facility] ([facility]) Name Value Range Interpretation Code Description Data Yuridia rce(s) Supporting Document(s) Hemoglobin A1c/Hemoglobin.total in Blood Laboratory test result [facility] ([facility]) ID Date Data Source [id number] 11/09/2020 09:09:00 AM EDT [facility] ([facility], ) Name Value Range Interpretation Code Description Data Yuridia rce(s) Supporting Document(s) Surgical pathology study Laboratory test result [facility] ([facility], ) FINAL DIAGNOSIS Descending and rectum polyps, polypectomy: Hyperplastic poly, fragments. 11/10/2020 - 100 CLINICAL DIAGNOSIS History colon cancer 11/09/2020 - 1450 GROSS DIAGNOSIS Received in formalin labeled "biopsy descending colon/polyps rectum" and consists of fragments of tissue, 0.2 x 0.1 x 0.1 cm. All in one. -OA 11/09/2020 - 1450 Signed MEGHAN HOLT MD 11/10/2020 1001 ID Date Data Source [id number] 11/04/2020 09:55:00 AM EDT [facility] Name Value Range Interpretation Code Description Data Yuridia rce(s) Supporting Document(s) SARS-CoV-2 (COVID-19) RNA [Presence] in Respiratory specimen by KANA with probe detection Not Detected [facility] This lab was ordered by [facility] and reported by [employer]. ID Date Data Source [id number] 09/08/2020 11:14:00 AM EDT [facility] ([facility]) Name Value Range Interpretation Code Description Data Yuridia rce(s) Supporting Document(s) Glucose [Mass/volume] in Serum or Plasma 113 mg/dL 74-99 [facility] ([facility]) 100-125 mg/dL PRE-DIABETES/FASTING >126 mg/dL DIABETES/FASTING Urea nitrogen [Mass/volume] in Serum or Plasma 14 mg/dL 7-18 [facility] ([facility]) Creatinine 0.8 mg/dL 0.6-1.3 [facility] ([facility]) Sodium [Moles/volume] in Serum or Plasma 135 meq/L 136-145 [facility] ([facility]) Potassium [Moles/volume] in Serum or Plasma 3.9 meq/L 3.5-5.1 [facility] ([facility]) Carbon dioxide, total [Moles/volume] in Serum or Plasma 30 meq/L 21 -32 [facility] ([facility]) Chloride [Moles/volume] in Serum or Plasma 99 meq/L 98-107 [facility] ([facility]) Calcium [Mass/volume] in Serum or Plasma 9.7 mg/dL 8.5-10.1 [facility] ([facility]) Total Bilirubin 1.1 mg/dL 0.2-1.0 [facility] ([facility]) Aspartate aminotransferase [Enzymatic activity/volume] in Serum or Plasma 42 U/L 15-37 [facility] ([facility] ) Alkaline phosphatase isoenzyme [Units/volume] in Serum or Pl asma 76 mg/dL 46-116 [facility] ([facility]) Albumin [Mass/volume] in Serum or Plasma 3.3 g/dL 3.4-5.0 [facility] ([facility]) Alanine aminotransferase [Enzymatic activity/volume] in Seru m or Plasma 59 U/L 12-78 [facility] ([facility]) Proteinase 3 Ab [Units/volume] in Serum 7.7 g/dL 6.4-8.2 [facility] ([facility]) A/G Ratio 0.75 CALC 1.00-1.90 [facility]) Glomerular filtration rate/1.73 sq M pre dicted among non-blacks [Volume Rate/Area] in Serum or Plasma by Creatinine-based formula (MDRD) Laboratory test result [facility] Glomerular filtration rate/1.73 sq M pre dicted among blacks [Volume Rate/Area] in Serum or Plasma by Creatinine-based formula (MDRD) Laboratory test result [facility] <content>CHRONIC KIDNEY DISEASE STAGING PER NKF</content>
<content></content>
<content>STAGE I & II GFR >= 60 NORMAL TO MILDLY DECREASED</content>
<content>STAGE III GFR 30-59 MODERATELY DECREASED</content>
<content>STAGE IV GFR 15-29 SEVERELY DECREASED</content>
<content>STAGE V GFR <15 VERY LITTLE GFR LEFT</content>
<content>ESRD GFR <15 ON STRATEGIES ANALYST</content>
<content></content> ID Date Data Source [id number] 09/08/2020 11:14:00 AM EDT [facility] ([facility]) Name Value Range Interpretation Code Description Data Yuridia rce(s) Supporting Document(s) Hemoglobin A1c/Hemoglobin.total in Blood 6.7 % [facility] Lab Result Notes: Pre-Diabetes 5.7 - 6.4 % Diabetes = or > 6.5% Glucose mean value [Mass/volume] in Blood Estimated fr om glycated hemoglobin 146 mg/dL 60-110 [facility] ID Date Data Source [id number] 09/08/2020 11:14:00 AM EDT [facility] Name Value Range Interpretation Code Description Data Yuridia rce(s) Supporting Document(s) Erythrocytes [#/volume] in Blood by Automated count 4.88 x10*6/UL 4.2 0-6.30 [facility] ([facility]) Leukocytes [#/volume] in Blood by Automated count 10.3 x10*3/UL 4.1-1 0.9 [facility] ([facility]) MCV 94.7 fL 80.0-97.0 [facility]) Hemoglobin [Mass/volume] in Blood 15.9 g/dL 12.0-18.0 [facility] ([facility]) Hematocrit [Volume Fraction] of Blood by Automated count 46.2 % 3 7.0-51.0 [facility] MCHC 34.4 g/dL 31.0-38.0 [facility] ([facility]) MCH 32.6 pg 26.0-32.0 [facility] ([facility]) Platelets [#/volume] in Blood by Automated count 269 x10*3/UL 140-440 [facility] Erythrocyte distribution width [Ratio] by Automated count 12.2 % 11.6-13.7 [facility] ([facility]) MPV 8.5 FL 7.8-11.0 [facility] ([facility]) Lymph % 22.1 % 10.0-58.5 [facility] ([facility]) Mid % 5.8 % 1.7-9.3 [facility] ([facility]) Neut % 72.1 % 37.0-92.0 [facility] ([facility]) Mid # 0.7 x10*3/UL 0.1-0.6 [facility] ([facility]) Lymph # 2.2 x10*3/UL 0.6-4.1 [facility] ([facility]) Neut # 7.4 x10*3/UL 2.0-7.8 [facility] ([facility]) ID Date Data Source [id number] 08/23/2020 10:19:00 AM EDT [facility] ([facility] Name Value Range Interpretation Code Description Data Yuridia rce(s) Supporting Document(s) Influenza A Amplification Laboratory test result [facility] ([facility]) Negative results do not preclude influen za or RSV virus infection and should not be used as the sole basis for treatment or other patient management decisions. Influenza B Amplification Laboratory test result [facility] ([facility]) Negative results do not preclude influen za or RSV virus infection and should not be used as the sole basis for treatment or other patient management decisions. RSV Amplification Laboratory test result [facility] ([facility]) Negative results do not preclude influen za or RSV virus infection and should not be used as the sole basis for treatment or other patient management decisions. Laboratory test finding (navigational concept) Laboratory test result [facility] ([facility]) A false negative result may occur [...] pathogens. DISCLAIMER: Testing was performed using the [employer] SARS-CoV-2 test. This test was developed and its performance characteristics determined by [employer]. This test has not been FDA cleared [...] or revoked sooner. ID Date Data Source [id number] 08/23/2020 10:19:00 AM EDT [facility] Name Value Range Interpretation Code Description Data Yuriida rce(s) Supporting Document(s) SARS coronavirus 2 RNA [Presence] in Res piratory specimen by KANA with probe detection NEGATIVE [facility] This lab was ordered by [facility] a nd reported by [facility]. ID Date Data Source [id number] 08/23/2020 08:27:00 AM EDT [facility] ([facility]) Name Value Range Interpretation Code Description Data Yuridia rce(s) Supporting Document(s) Laboratory test finding (navigational concept) 0.01 ng/mL 0.00-0.08 [facility] ([facility]) ID Date Data Source [id number] 08/23/2020 08:25:00 AM EDT [facility] ([facility]) Name Value Range Interpretation Code Description Data Yuridia rce(s) Supporting Document(s) Laboratory test finding (navigational concept) 45.0 % 38.0-51.0 [facility] ([facility]) Laboratory test finding (navigational concept) 139 meq/L 136-145 [facility] ([facility]) Laboratory test finding (navigational concept) 158 mg/dL 70-105 [facility] ([facility]) Laboratory test finding (navigational concept) 4.4 meq/L 3.5-5.1 [facility] ([facility]) Laboratory test finding (navigational concept) 4.6 mg/dL 4.5-5.3 [facility] ([facility]) Laboratory test finding (navigational concept) 101 meq/L 98-109 [facility] ([facility]) Laboratory test finding (navigational concept) 31.0 MM/L 23.0-27.0 [facility] ([facility]) Laboratory test finding (navigational concept) 10 mg/dL 8-26 [facility] ([facility]) Laboratory test finding (navigational concept) 0.6 mg/dL 0.6-1.3 [facility] ([facility]) ID Date Data Source [id number] 08/23/2020 08:20:00 AM EDT [facility] ([facility]) Name Value Range Interpretation Code Description Data Yuridia rce(s) Supporting Document(s) Magnesium [Moles/volume] in Serum or Plasma 1.6 mg/dL 1.8-2.4 [facility] Natriuretic peptide.B prohormone N-Terminal [Mass/volu me] in Serum or Plasma 285 pg/mL [facility] Thyrotropin [Units/volume] in Serum or Plasma by Detec tion limit <= 0.05 mIU/L 0.774 uIU/ML 0.358-3.740 [facility] ([facility] ) ID Date Data Source [id number] 08/23/2020 08:20:00 AM EDT [facility] Name Value Range Interpretation Code Description Data Yuridia rce(s) Supporting Document(s) Ast/Sgot 42 U/L 7-37 [facility]) Alt/SGPT 33 U/L 12-78 [facility]) Alkaline Phosphatase 90 U/L 45-117 [facility] ([facility]) Bilirubin,Total 1.3 mg/dL 0.2-1.0 [facility] ([facility]) Bilirubin,Direct 0.6 mg/dL 0.0-0.2 [facility] ([facility]) Total Protein 7.7 GM/DL 6.4-8.2 [facility] ([facility]) Albumin 3.1 GM/DL 3.2-5.2 [facility] ([facility]) Albumin/Globulin Ratio 0.7 [facility] ([facility]) ID Date Data Source [id number] 08/23/2020 08:20:00 AM EDT [facility] ([facility]) Name Value Range Interpretation Code Description Data Yuridia rce(s) Supporting Document(s) Prothrombin Time 16.2 s 12.5-14.3 [facility] ([facility]) Inr 1.27 [facility] ([facility]) THERAPUTIC HUMAN INR VALUES INDICATIONS NORMAL RANGES PROPHYLAXIS/TREATMENT OF: VENOUS THROMBOSIS 2.0-3.0 PULMONARY EMBOLISM 2.0-3.0 PREVENTION OF SYSTEMIC EMBOLISM FROM: TISSUE HEART VALVES 2.0-3.0 ACUTE MYOCARDIAL INFARCTION 2.0-3.0 VALVULAR HEART DISEASE 2.0-3.0 ATRIAL FIBRILLATION 2.0-3.0 MECHANICAL VALVES(HIGH RISK) 2.5-3.5 RECURRENT MYOCARDIAL INFARCTION 2.5-3.5 ID Date Data Source [id number] 08/23/2020 08:20:00 AM EDT [facility] ([facility]) Name Value Range Interpretation Code Description Data Yuridia rce(s) Supporting Document(s) White Blood Count 7.8 10 4.0-10.0 [facility] ([facility]) Hematocrit 42.5 % 42.0-52.0 [facility]) Hemoglobin 14.3 g/dL 13.5-17.5 [facility]) Red Blood Count 4.28 10 4.30-6.10 [facility] ([facility]) Mean Corpuscular Volume 99.3 fl 80.0-96.0 [facility] ([facility]) Mean Corpuscular Hemoglobin 33.4 pg 27.0-33.0 [facility] ([facility]) Red Cell Distribution Width 12.3 % 11.5-14.5 [facility] ([facility]) Mean Corpuscular HGB Conc 33.6 g/dL 32.0-36.5 [facility] ([facility]) Platelet Count, Automated 164 10 150-450 [facility] ([facility]) Lymph % 23.1 % 24.0-44.0 [facility]) Neutrophils % 62.1 % 36.0-66.0 [facility] ([facility]) Riley % 10.3 % 2.0-8.0 [facility]) Baso % 1.4 % 0.0-1.0 [facility]) Eos % 2.6 % 0.0-3.0 [facility]) Immature Granulocyte % 0.5 % 0-3.0 [facility] ([facility]) Neutrophils # 4.9 10 1.5-8.5 [facility] ([facility]) Nucleated Red Blood Cell % 0.0 % 0-0 [facility] ([facility]) Lymph # 1.8 10 1.5-5.0 [facility]) Eos # 0.2 10 0.0-0.5 [facility]) Baso # 0.1 10 0.0-0.2 [facility]) Riley # 0.8 10 0.0-0.8 [facility] ID Date Data Source [id number] 07/04/2020 12:00:00 AM EST [facility] Name Value Range Interpretation Code Description Data Yuridia rce(s) Supporting Document(s) SARS-CoV2 Rapid Antigen Negative [facility] This lab was ordered by [facility] and reported by [facility]. Procedure Social History Code Duration Value Status Description Data Source(s ) Smoking 03/23/2021 12:00:00 AM EDT Patient has never smoked co mpleted Patient has never smoked [facility] ([facility] Alcohol intake 03/03/2021 12:00:00 AM EDT Ex-drinker (finding) comp leted Ex- drinker (finding) [facility] Alcohol intake 12/21/2020 12:00:00 AM EDT Ex-drinker (finding) comp leted Ex- drinker (finding) [facility] Alcohol intake 10/28/2020 12:00:00 AM EDT Current drinker of al cohol (finding) completed Current drinker of alcohol (finding) [facility] Vital Signs ID Date Data Source UNK Name Value Range Interpretation Code Description Data Source(s) Body temperature 97.2 [degF] 97.2 [degF] MEDGIL ([facility] ) Body weight 266.00 [lb_av] 266.00 [lb_av] SARKIS Gallo ([facility]) Body mass index (BMI) [Ratio] 38.2 kg/m2 38.2 k g/m2 FREDA ([facility]) Systolic blood pressure 100 mm[Hg] 100 mm[Hg] DENISSE ([facility]) Diastolic blood pressure 72 mm[Hg] 72 mm[Hg] MEDGIL ([facility]) Heart rate 82 /min 82 /min FREDA ([facility]) Body height 70 [in_i] 70 [in_i] [facility] 5'10" Systolic blood pressure 110 mm[Hg] 110 mm[Hg] [facility] Body mass index (BMI) [Ratio] 39.68 kg/m2 39.68 kg/m2 [facility] Oxygen saturation in Arterial blood by Pulse oximetry 95 % 95 % [facility] Diastolic blood pressure 68 mm[Hg] 68 mm[Hg] [facility] Heart rate 71 /min 71 /min [facility] Body height 172.7 cm 172.7 cm [facility] Body weight 118.389 kg 118.389 kg [facility] Systolic blood pressure 102 mm[Hg] 102 mm[Hg] M DENISSE ([facility]) Diastolic blood pressure 82 mm[Hg] 82 mm[Hg] MEDGIL ([facility]) Heart rate 58 /min 58 /min MEDENT ([facility]) Body height 70 [in_i] 70 [in_i] MEDENT ([facility]) 5'10" Body weight 262.00 [lb_av] 262.00 [lb_av] MEDEN T ([facility]) Oxygen saturation in Arterial blood by Pulse oximetry 99 % 99 % [facility] ([facility]) RM Air Body mass index (BMI) [Ratio] 37.6 kg/m2 37.6 k g/m2 MEDENT ([facility]) Body weight 266.00 [lb_av] 266.00 [lb_av] MEDEN T ([facility]) Systolic blood pressure 102 mm[Hg] 102 mm[Hg] [facility] ([facility]) Diastolic blood pressure 80 mm[Hg] 80 mm[Hg] [facility] ([facility]) Heart rate 81 /min 81 /min [facility] ([facility]) Body height 70 [in_i] 70 [in_i] [facility] ([facility]) 5'10" Oxygen saturation in Arterial blood by Pulse oximetry 99 % 99 % [facility] ([facility]) RM Air Body mass index (BMI) [Ratio] 38.2 kg/m2 38.2 k g/m2 [facility] ([facility]) Body mass index (BMI) [Ratio] 35.7 kg/m2 35.7 k g/m2 [facility] ([facility]) Diastolic blood pressure 94 mm[Hg] 94 mm[Hg] [facility] ([facility]) Systolic blood pressure 118 mm[Hg] 118 mm[Hg] [facility] ([facility]) Heart rate 73 /min 73 /min [facility] ([facility]) Body height 70 [in_i] 70 [in_i] [facility] ([facility]) 5'10" Body weight 249.00 [lb_av] 249.00 [lb_av] MEDEN T ([facility]) Oxygen saturation in Arterial blood by Pulse oximetry 98 % 98 % [facility] ([facility]) Body temperature 97.9 [degF] 97.9 [degF] MEDENT ([facility], ) Systolic blood pressure 100 mm[Hg] 100 mm[Hg] [facility] Diastolic blood pressure 70 mm[Hg] 70 mm[Hg] [facility] Heart rate 76 /min 76 /min [facility] Body height 172.7 cm 172.7 cm [facility] Body weight 109.861 kg 109.861 kg [facility] Body mass index (BMI) [Ratio] 36.83 kg/m2 36.83 kg/m2 [facility] Oxygen saturation in Arterial blood by Pulse oximetry 96 % 96 % [facility] Body temperature 98.7 [degF] 98.7 [degF] [facility] ([facility], ) Systolic blood pressure 118 mm[Hg] 118 mm[Hg] EDENT ([facility]) Diastolic blood pressure 62 mm[Hg] 62 mm[Hg] MEDENT ([facility]) Heart rate 70 /min 70 /min [facility] ([facility]) Body height 70 [in_i] 70 [in_i] MEDENT ([facility]) 5'10" Body weight 240.00 [lb_av] 240.00 [lb_av] MEDEN T ([facility]) Body mass index (BMI) [Ratio] 34.4 kg/m2 34.4 k g/m2 MEDENT ([facility]) Systolic blood pressure 110 mm[Hg] 110 mm[Hg] [facility] Diastolic blood pressure 80 mm[Hg] 80 mm[Hg] [facility] Heart rate 101 /min 101 /min [facility] Respiratory rate 18 /min 18 /min [facility] Body weight 111.585 kg 111.585 kg [facility] Body mass index (BMI) [Ratio] 37.40 kg/m2 37.40 kg/m2 [facility] Oxygen saturation in Arterial blood by Pulse oximetry 97 % 97 % [facility] Oxygen saturation in Arterial blood by Pulse oximetry 97 % 97 % [facility] ([facility]) Systolic blood pressure 135 mm[Hg] 135 mm[Hg] [facility] Diastolic blood pressure 93 mm[Hg] 93 mm[Hg] [facility] ([facility]) Respiratory rate 18 /min 18 /min [facility] ( [facility]) Heart rate 91 /min 91 /min [facility] ([facility]) Body weight 113.400 kg 113.400 kg [facility] ([facility]) [place] body weight 166 [lb_av] 166 [lb_av] MEDEN T ([facility]) Oxygen saturation in Arterial blood by Pulse oximetry 97 % 97 % [facility] ([facility]) Body temperature 97.2 [degF] 97.2 [degF] [facility] ([facility]) Body height 70 [in_i] 70 [in_i] [facility] ([facility]) 5'10" Body weight 250.00 [lb_av] 250.00 [lb_av] MEDEN T ([facility]) Body mass index (BMI) [Ratio] 35.9 kg/m2 35.9 k g/m2 [facility] ([facility]) [place] body weight 166 [lb_av] 166 [lb_av] MEDEN T ([facility]) Body weight 113.400 kg 113.400 kg [facility] ([facility]) Body surface area Derived from formula 2.29 m2 2.29 m2 [facility] ([facility]) Respiratory rate 18 /min 18 /min [facility] ( [facility]) Body temperature 97.2 [degF] 97.2 [degF] [facility] ([facility]) Body height 70 [in_i] 70 [in_i] [facility] ([facility]) 5'10" Body weight 250.00 [lb_av] 250.00 [lb_av] MEDEN T ([facility]) Body mass index (BMI) [Ratio] 35.9 kg/m2 35.9 k g/m2 [facility] ([facility]) Body surface area Derived from formula 2.29 m2 2.29 m2 [facility] ([facility]) Systolic blood pressure 113 mm[Hg] 113 mm[Hg] M EDENT ([facility]) Respiratory rate 17 /min 17 /min [facility] ( [facility]) Body height 70 [in_i] 70 [in_i] [facility] ([facility]) 5'10" Body weight 250.75 [lb_av] 250.75 [lb_av] MEDEN T ([facility]) Body mass index (BMI) [Ratio] 36.0 kg/m2 36.0 k g/m2 [facility] ([facility]) Diastolic blood pressure 73 mm[Hg] 73 mm[Hg] [facility] ([facility]) Heart rate 84 /min 84 /min [facility] ([facility]) Oxygen saturation in Arterial blood by Pulse oximetry 100 % 100 % [facility] ([facility]) Body temperature 95.4 [degF] 95.4 [degF] [facility] ([facility]) [place] body weight 166 [lb_av] 166 [lb_av] MEDEN T ([facility]) Body weight 113.740 kg 113.740 kg [facility] ([facility]) Body surface area Derived from formula 2.30 m2 2.30 m2 [facility] ([facility]) Body surface area Derived from formula 2.29 m2 2.29 m2 [facility] ([facility]) Body mass index (BMI) [Ratio] 35.7 kg/m2 35.7 k g/m2 [facility] ([facility]) Systolic blood pressure 122 mm[Hg] 122 mm[Hg] M EDENT ([facility]) Diastolic blood pressure 86 mm[Hg] 86 mm[Hg] [facility] ([facility]) Body height 70 [in_i] 70 [in_i] [facility] ([facility]) 5'10" Body weight 248.50 [lb_av] 248.50 [lb_av] MEDEN T ([facility], ) [place] body weight 166 [lb_av] 166 [lb_av] MEDEN T ([facility], ) Body weight 112.720 kg 112.720 kg [facility] ([facility], ) Systolic blood pressure 118 mm[Hg] 118 mm[Hg] M EDENT ([facility]) Diastolic blood pressure 62 mm[Hg] 62 mm[Hg] [facility] ([facility]) Body weight 250.00 [lb_av] 250.00 [lb_av] MEDEN T ([facility]) Body mass index (BMI) [Ratio] 35.9 kg/m2 35.9 k g/m2 [facility] ([facility]) Heart rate 68 /min 68 /min [facility] ([facility]) Body height 70 [in_i] 70 [in_i] [facility] ([facility]) 5'10" Patient Treatment Plan of Care Planned Activity Planned Date Details Description Data Source (s) Lactulose 667 MG/ML Oral Solution 03/02/2021 12:00:00 AM EDT [facility] Furosemide 40 MG Oral Tablet 02/28/2021 12:00:00 AM EDT [facility] Metoprolol Tartrate 25 MG Oral Tablet 02/24/2021 12:00:00 AM EDT [facility] atorvastatin 20 MG Oral Tablet 02/24/2021 12:00:00 AM EDT [facility] apixaban 5 MG Oral Tablet 01/31/2021 12:00:00 AM EDT [facility] Cyclobenzaprine hydrochloride 10 MG Oral Tablet 01/02/2021 12:00:00 AM EDT [facility] Lisinopril 2.5 MG Oral Tablet 12/21/2020 12:00:00 AM EDT [facility] apixaban 5 MG Oral Tablet 12/15/2020 12:00:00 AM EDT [facility] Metoprolol Tartrate 50 MG Oral Tablet 10/28/2020 12:00:00 AM EDT [facility] Lisinopril 10 MG Oral Tablet 10/28/2020 12:00:00 AM EDT [facility] ropinirole 4 MG Oral Tablet 08/30/2020 12:00:00 AM EDT [facility] Metformin hydrochloride 1000 MG Oral Tablet 08/30/2020 12:00:00 AM EDT [facility] Magnesium Oxide 500 MG Oral Tablet 08/30/2020 12:00:00 AM EDT [facility] atorvastatin 40 MG Oral Tablet 08/30/2020 12:00:00 AM EDT [facility] Pravastatin Sodium 10 MG Oral Tablet 01/13/2020 12:00:00 AM EDT [facility] Metoprolol Tartrate 25 MG Oral Tablet 12/16/2019 12:00:00 AM EDT [facility] Hydrochlorothiazide 25 MG Oral Tablet 11/12/2019 12:00:00 AM EDT [facility] Lisinopril 10 MG Oral Tablet 11/12/2019 12:00:00 AM EDT [facility] Metformin hydrochloride 500 MG Oral Tablet 10/24/2019 12:00:00 AM E DT [facility]
[2021-04-05 16:59] VITALS: BP 158/94
--- NOTE | 2021-04-05 20:38 | ECGEPIP ---
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
--- NOTE | 2021-04-06 09:13 | ED PDOC ---
Post-Departure Follow-Up radiology repor tfaxed to Yvonne Luis MD Apr 06, 2021 09:13
== END 2021-04-05 17:08 | disposition home or self-care (01) ==
LOC: M ED 13:40
DX: G47.30 Sleep apnea, unspecified (principal); U07.1 COVID-19; Z95.0 Presence of cardiac pacemaker; Z79.899 Other long term (current) drug therapy; Z79.01 Long term (current) use of anticoagulants; Z79.84 Long term (current) use of oral hypoglycemic drugs

== ENCOUNTER 2021-04-06 09:00 | Outpatient (RCR) | payer BC | END 2021-04-25 | LOC: M OUTALCOH 09:00 | PROVIDERS: ATTEND Psychiatry & Neurology Psychiatry | DX: F10.20 Alcohol dependence, uncomplicated (principal) ==

== ENCOUNTER 2021-04-07 13:19 | Emergency (ER) | payer BC ==
[~2021-04-07] VITALS: Ht 180.3 cm; Wt 117.4 kg
--- OUTSIDE RECORDS SUMMARY | 2021-04-07 13:32 | CCD ---
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 If you continue you may have access to information: Regarding HIV / AIDS; Provided by facilities licensed or operated by the [facility] Office of Mental Health; or Provided by the [facility] Office for People With Developmental Disabilities. If such information is present, then the following [facility] mandated warning applies: This information has [...] law may result in a fine or halfway sentence or both. A general authorization for the release of medical or other information is NOT sufficient authorization for further disc losure. Family History Family Member Name Family Member Gender Family Member Status Date o f Status Description Data Source(s) Unknown Male Problem MEDENT ([facility]) Unknown Male Problem [facility] ([facility]) Unknown Female Problem MED[facility] ([facility]) Encounters Encounter Providers Location Date Indications Data Source(s ) Office Visit Attender: Marek Wagoner/Chip/Varghese/Lisa baltazar 03/27/2021 02:30:00 PM EDT [facility] ([facility] Outpatient Attender: Blanche POWER Main Office 03/23/2021 12:45:00 PM EDT [facility] ([facility]) Outpatient Attender: Milton Ocampo 03/08/2021 11:00:00 AM EDT MEDENT ([facility] ) Outpatient Attender: MARY GRACE KEENANSJDorisELIUD 01:16:01 PM EDT - 03/03/2021 02:05:15 PM EDT [facility] Outpatient Attender: Milton Arboleda 03/03/2021 11:40:00 AM EDT MEDENT ([facility] ) Outpatient Attender: Shaileshluna Arboleda 02/28/2021 10:40:00 AM EDT MEDENT ([facility] ) Office Visit Attender: Marek Wagoner/Chip/Varghese/Re indl 02/21/2021 09:15:00 AM EDT [facility] ([facility]) Outpatient Attender: Milton Montanez DO Lisseth Dominguezkaylabasil 01/31/2021 01:40:00 PM EDT MED[facility] ([facility] ) Outpatient Attender: Marek Wagoner/Chip/Varghese/Re indl 01/17/2021 02:00:00 PM EDT [facility] ([facility]) Outpatient Attender: MARY GRACE LYMAN-SJP.ELIUD 12:00:00 AM EDT - 12/21/2020 10:26:08 AM EDT [facility] Outpatient Attender: Marek Wagoner/Chip/Varghese/Re indl 12/20/2020 09:15:00 AM EDT MED[facility] ([facility]) Outpatient Attender: Marek Wagoner/Chip/Varghese/Re indl 12/15/2020 10:45:00 AM EDT [facility] ([facility]) Outpatient Attender: Nader Hurt 11/10 11:30:00 AM EDT MEDENT ([facility] ) Outpatient Attender: MARY GRACE KEENANSJP.ELIUD 10/28/2020 12:00:00 AM EDT [facility] Outpatient Attender: Marek Wagoner/Chip/Varghese/Re indl 10/07/2020 02:15:00 PM EDT MEDENT ([facility], ) Outpatient Attender: Marek Wagoner/Chip/Varghese/Re indl 09/22/2020 09:00:00 AM EDT MED[facility] ([facility], ) Outpatient Attender: Nader Hurt 09/08 10:00:00 AM EDT MED[facility] ([facility] ) Immunizations Vaccine Date Status Description Data Source(s) COVID-19 VACCINE Moderna 10/07/2020 12:00:00 AM EDT completed [facility] Vaccine Series Complete: YESThis Data wa s Submitted to [facility] Via [facility]. COVID-19 VACCINE Moderna 09/09/2020 12:00:00 AM EDT completed [facility] Vaccine Series Complete: NOThis Data was Submitted to [facility] Via [employer]. Medications Medication Brand Name Start Date Product Form Dose Route Admi nistrative Instructions Pharmacy Instructions Status Indications Reaction Description Data Source(s) ferrous sulfate 325 MG Oral Tablet Ferrous Sulfate 03/08/2021 12:00 :00 AM EDT ORAL active MEDENT ([facility]) Spironolactone 25 MG Oral Tablet Spironolactone 03/08/2021 12:00:00 A M EDT ORAL active [facility] ([facility]) Lactulose 667 MG/ML Oral Solution Lactulose Encephalop athy 10 GM/15ML SOLN Lactulose Encephalopathy 10 GM/15ML SOLN 03/02/2021 12:00:00 AM EDT active [facility] Lactulose 667 MG/ML Oral Solution Lactulose 03/01/2021 12:00:00 AM EDT ORAL active MED[facility] ([facility]) Furosemide 40 MG Oral Tablet furosemide (LASIX) 40 MG tablet furosemide (LASIX) 40 MG tablet 02/28/2021 12:00:00 AM EDT active [facility] Furosemide 40 MG Oral Tablet Furosemide 02/28/2021 12:00:00 AM EDT active [facility] ([facility]) atorvastatin 20 MG Oral Tablet atorvastatin (LIPITOR) 20 MG tablet atorvastatin (LIPITOR) 20 MG tablet 02/24/2021 12:00:00 AM EDT active [facility] Metoprolol Tartrate 25 MG Oral Tablet me toprolol tartrate (LOPRESSOR) 25 MG tablet metoprolol tartrate (LOPRESSOR) 25 MG tablet 02/24/2021 12:0 0:00 AM EDT 25 mg Oral active Take 25 mg by mo uth daily [facility] Acetaminophen 325 MG / Oxycodone Hydrochloride 5 MG Or al Tablet [Percocet] Percocet 02/08/2021 12:00:00 AM EDT ORAL completed MED[facility] ([facility], ) Metoprolol Tartrate 25 MG Oral Tablet Metoprolol Tartrate 12:00:00 AM EDT ORAL active [facility]) apixaban 5 MG Oral Tablet Apixaban (ELIQUIS) 5 MG TABS tablet Apixaban (ELIQUIS) 5 MG TABS tablet 01/31/2021 12:00:00 AM EDT 5 mg Oral active Paroxysmal atrial fibrillation Take 1 tablet (5 mg total) by mouth 2 (t wo) times a day [facility] Paroxysmal atrial fibrillation Methylprednisolone 4 MG Oral Tablet Methylprednisolone 12/25 12:00:00 AM EDT active MEDENT ([facility], ) Cyclobenzaprine hydrochloride 10 MG Oral Tablet cyclobenzaprine (FLEXERIL) 10 MG tablet cyclobenzaprine (FLEXERIL) 10 MG tablet 01/02/2021 12:00:00 AM EDT active [facility] Cyclobenzaprine hydrochloride 10 MG Oral Tablet Cyclobenzapr ine HCL 01/02/2021 12:00:00 AM EDT ORAL active M EDENT ([facility], ) Lisinopril 2.5 MG Oral Tablet lisinopril (PRINIVIL,ZES TRIL) 2.5 MG tablet lisinopril (PRINIVIL,ZESTRIL) 2.5 MG tablet 12/21/2020 12:00:00 AM EDT 2.5 mg Oral aborted Type 2 diabetes mellitus without complication, without long- term current use of insulinHypertension, unspecified type Take 1 tablet (2.5 mg total) by mouth daily [facility] Type 2 diabetes mellitus without complic ation, without long-term current use of insulin Hypertension, unspecified type apixaban 5 MG Oral Tablet Apixaban (ELIQUIS) 5 MG TABS tablet Apixaban (ELIQUIS) 5 MG TABS tablet 12/15/2020 12:00:00 AM EDT 5 mg Oral active Take 1 tablet (5 mg total) by mouth 2 (two) times a day [facility] Suprep Bowel Prep Kit Suprep [...] mouth 2 ( two) times a day [facility] Hypertension, unspecified type Paroxysmal atrial fibrillation Lisinopril 10 MG Oral Tablet lisinopril (PRINIVIL,ZEST RIL) 10 MG tablet lisinopril (PRINIVIL,ZESTRIL) 10 MG tablet 10/28/2020 12:00:00 AM EDT 5 mg Oral aborted Take 0.5 tablets (5 mg total) by mouth daily [facility] atorvastatin 20 MG Oral Tablet Atorvastatin Calcium 09/01/2020 1 2:00:00 AM EDT ORAL active MEDENT ( [facility]) MAGNESIUM GLUCONATE 500 MG Oral Tablet Magnesium Gluconate 0 09/01/2020 12:00:00 AM EDT active [facility] Metformin hydrochloride 1000 MG Oral Tablet Metformin HCL 09/01/2020 12:00:00 AM EDT ORAL active [facility] ropinirole 4 MG Oral Tablet Ropinirole HCL 09/01/2020 12:00:00 AM EDT ORAL active MED[facility] ([facility]) atorvastatin 40 MG Oral Tablet atorvastatin (LIPITOR) 40 MG tablet atorvastatin (LIPITOR) 40 MG tablet 08/30/2020 12:00:00 AM EDT 40 mg Oral active Take 40 mg by mouth daily [facility] Magnesium Oxide 500 MG Oral Tablet Magnesium Oxide 500 MG TABS Magnesium Oxide 500 MG TABS 08/30/2020 12:00:00 AM EDT 1 {tbl} Oral activ e Take 1 tablet by mouth daily [facility] Metformin hydrochloride 1000 MG Oral Tab let metFORMIN (GLUCOPHAGE) 1000 MG tablet metFORMIN (GLUCOPHAGE) 1000 MG tablet 08/30/2020 12:00:00 AM EDT 1000 mg Oral active Take 1,000 mg by mouth 2 (two) times a day with meals [facility] ropinirole 4 MG Oral Tablet rOPINIRole (REQUIP) 4 MG t ablet rOPINIRole (REQUIP) 4 MG tablet 08/30/2020 12:00:00 AM EDT 4 mg Oral active Take 4 mg by mouth nightly [facility] Pravastatin Sodium 10 MG Oral Tablet pravastatin (PRAV ACHOL) 10 MG tablet pravastatin (PRAVACHOL) 10 MG tablet 01/13/2020 12:00:00 AM EDT 10 mg Oral aborted Hypertension, unspecified ty peParoxysmal atrial fibrillationHyperlipidemia, unspecified hyperlipidemia type Take 1 tablet (10 mg total) by mouth nightly [facility] Hypertension, unspecified type Paroxysmal atrial fibrillation Hyperlipidemia, unspecified hyperlipidem ia type Metoprolol Tartrate 25 MG Oral Tablet me toprolol tartrate (LOPRESSOR) 25 MG tablet metoprolol tartrate (LOPRESSOR) 25 MG tablet 12/16/2019 12:0 0:00 AM EDT 25 mg Oral aborted Take 1 tablet (2 5 mg total) by mouth 2 (two) times a day [facility] Lisinopril 10 MG Oral Tablet lisinopril (PRINIVIL,ZEST RIL) 10 MG tablet lisinopril (PRINIVIL,ZESTRIL) 10 MG tablet 11/12/2019 12:00:00 AM EDT 10 mg Oral aborted Take 10 mg by mouth daily [facility] Hydrochlorothiazide 25 MG Oral Tablet hy drochlorothiazide (HYDRODIURIL) 25 MG tablet hydrochlorothiazide (HYDRODIURIL) 25 MG tablet 020 12:00:00 AM EDT 12.5 mg Oral aborted Take 12.5 mg by mouth daily [facility] Metformin hydrochloride 500 MG Oral Tablet metFORMIN ( GLUCOPHAGE) 500 MG tablet metFORMIN (GLUCOPHAGE) 500 MG tablet 10/24/2019 12:00:00 AM EDT 500 m g Oral aborted Take 500 mg by mouth 4 (four ) times a day [facility] Insurance Providers Payer name Policy type / Coverage type Policy ID Covered libertarian ID Covered libertarian's relationship to lopez Policy Lopez Plan Information [facility] [employer] Part B [id number] Family Dependent U [id number] [facility] [id number] Family Dependent U [id number] [facility] [id number] Family Dependent U [id number] [facility] [id number] Family Dependent U [id number] [facility] [employer] Part B [id number] Family Dependent U [id number] [facility] [employer] Part B [id number] Family Dependent U [id number] [facility] [employer] Part B [id number] Family Dependent U [id number] BS [facility] Part B [id number] Family Dependent U [id number] BS [facility] Part B [id number] Family Dependent U [id number] MVP (pr) Commercial [id number] Self [id number] Stella (WC) Workers Compensation [id number] Self [id number] [facility] [id number] SP [id number] [facility] [id number] SP [id number] [employer] Commercial [id number] Self [employer] Commercial [id number] Self [id number] BS [place] [employer] Commercial [id number] Self [id number] BS [place] [employer] Commercial [id number] Self [employer]CE[employer] BCBS [id number] Deborah PYN [id number] [employer] BCBS [id number] [employer] BCBS B [id number] S PYN [id number] BS [facility] Commercial [id number] Self P [id number] BS [facility] Commercial [id number] Self P [id number] BS [facility] Commercial [id number] Self P [id number] [employer] BCBS B [id number] S PYN [id number] [facility] O [id number] S [id number] BCBS [place] PPO 302/307 [id number] SP [id number] [employer] BCBS Health Maintenance Organization (HMO) [id number] Self [id number] BCBS OF [place] 306/806 [id number] SP [id number] BS [facility] Commercial [id number] Self P [id number] BCBS [place] PPO 302/307 [id number] SP [id number] BCBS [place] PPO 302/307 [id number] SP [id number] BCBS OF [place] 306/806 [id number] SP [id number] Problems, Conditions, and Diagnoses Code Display Name Description Problem Type Effective Dates Data Source(s) E11.9 Type 2 diabetes mellitus without complic ations Type 2 diabetes mellitus without complic Diagnosis 12/21/2020 09:25:05 AM EDT [facility] G47.33 Obstructive sleep apnea (adult) (pediatr ic) Obstructive sleep apnea (adult) (pediatr Diagnosis 12/21/2020 09:25:05 AM EDT [facility] I10 Essential (primary) hypertension Essential (primary) h ypertension Diagnosis 12/21/2020 09:25:05 AM EDT [facility] K21.9 Gastro-esophageal reflux disease without esophagitis Gastro-esophageal reflux disease without Diagnosis 12/21/2020 09:25:05 AM EDT [facility] F32.9 Major depressive disorder, single episod e, unspecified Major depressive disorder, single episod Diagnosis 12/21/2020 09:25:05 AM EDT [facility] F41.9 Anxiety disorder, unspecified Anxiety disorder, unspec ified Diagnosis 12/21/2020 09:25:05 AM EDT [facility] E78.5 Hyperlipidemia, unspecified Hyperlipidemia, unspecifie d Diagnosis 12/21/2020 09:25:05 AM EDT [facility] I48.0 Paroxysmal atrial fibrillation Paroxysmal atrial fibri llation Diagnosis 12/21/2020 09:25:05 AM EDT [facility] K74.60 Cirrhosis Cirrhosis [id number] 03/03/2021 12:00:00 AM ED T [facility] Surgeries/Procedures Procedure Description Date Indications Data Source(s) OFFICE OUTPATIENT VISIT 5 MINUTES 03/23/2021 12:00:00 AM EDT [facility] ([facility]) OFFICE OUTPATIENT VISIT 25 MINUTES 03/08/2021 12:00:00 AM EDT MEDGIL ([facility]) OFFICE OUTPATIENT VISIT 25 MINUTES 03/03/2021 12:00:00 AM EDT MED[facility] ([facility]) OFFICE OUTPATIENT VISIT 25 MINUTES 02/28/2021 12:00:00 AM [facility] TROPONIN QUANTITATIVE <td>TROPONIN I</td><td>Routine</td><td>02/23/2021</td><td></td><td> </td> 02/23/2021 12:00:00 AM EDT [facility] BLOOD COUNT COMPLETE AUTO&AUTO DIFRNTL WBC COUNT <td>C BC AND DIFFERENTIAL</td><td>Routine</td><td>02/23/2021</td><td></td><td> </td> 02/23/2021 12:00:00 AM EDT [facility] THYROID STIMULATING HORMONE TSH <td>TSH</td><td>Routine</td><td>02/23/2021</td><td></td><td> </td> 02/23/2021 12:00:00 AM EDT [facility] HEPATIC FUNCTION PANEL <td>HEPATIC FUNCTION PANEL</td><td>Routine</td><td>02/23/2021</td><td></td><td> </td> 02/23/2021 12:00:00 AM EDT [facility] BASIC METABOLIC PANEL CALCIUM TOTAL <td>BASIC METABOLI C PANEL</td><td>Routine</td><td>02/23/2021</td><td></td><td> </td> 02/23/2021 12:00:00 AM [facility] ARTHROSCOPY SHOULDER DISTAL CLAVICULECTOMY 02/08/2021 12:00:00 AM EDCleo BARBA ([facility], ) SHOULDER SCOPE BONE SHAVING 02/08/2021 12:00:00 AM EDCleo BARBA ([facility], ) ARTHROSCOPY SHOULDER ROTATOR CUFF REPAIR 02/08/2021 12 :00:00 AM SHAYAN BARBA ([facility], ) ECG ROUTINE ECG W/LEAST 12 LDS W/I&R 01/31/2021 12:00: 00 AM EDCleo BARBA ([facility]) OFFICE OUTPATIENT VISIT 25 MINUTES 01/31/2021 12:00:00 AM EDCleo BARBA ([facility]) OFFICE OUTPATIENT VISIT 25 MINUTES 01/17/2021 12:00:00 AM EDCleo BARBA ([facility], ) OFFICE OUTPATIENT VISIT 15 MINUTES 12/20/2020 12:00:00 AM EDCleo BARBA ([facility], ) OFFICE OUTPATIENT VISIT 25 MINUTES 12/20/2020 12:00:00 AM EDCleo MEDGIL ([facility], ) Inject/Drain Arthrocentesis Major Joint/Bursa/Ganglion Cyst 12/15/2020 12:00:00 AM EDCleo BARBA ([facility]) OFFICE OUTPATIENT VISIT 25 MINUTES 12/15/2020 12:00:00 AM [facility] OFFICE OUTPATIENT VISIT 25 MINUTES 11/10/2020 12:00:00 AM EDT [facility] Colonoscopy Flexible Proximal To Splenic Flexure W/Biopsy Si ngle/ 11/09/2020 12:00:00 AM EDT [facility] Colonoscopy 11/09/2020 12:00:00 AM [facility] ECG ROUTINE ECG W/LEAST 12 LDS W/I&R <td>POCT AMB EKG</td><td>Routine</td><td>10/28/2020</td><td> Paroxysmal atrial fibrillation Hypertension, unspecified type</td><td></td> 10/28/2020 12:00:00 AM EDT Hypertension, unspecified typeParoxysmal atrial fibrillation [facility] Hypertension, unspecified type Paroxysmal atrial fibrillation OFFICE OUTPATIENT VISIT 15 MINUTES 10/07/2020 12:00:00 AM EDT [facility] OFFICE OUTPATIENT NEW 45 MINUTES 09/22/2020 [facility] Trans Care SRV W/I 14D Of DC, Comm W/I 2 Dys Med Rec 09/08/2020 12:00:00 AM EDT [facility] ([facility] ) Results ID Date Data Source [id number] 03/14/2021 11:38:00 PM EDT [facility] Name Value Range Interpretation Code Description Data Yuridia rce(s) Supporting Document(s) ABG Partial Pressure Co2 37.6 mmHg 35.0-45.0 MEDEN T ([facility]) ABG pH (Arterial) 7.449 units 7.350-7.450 [facility] ABG Partial Pressure O2 78.1 mmHg 75.0-100.0 MEDEN T ([facility]) ABG Hco3 25.5 meq/L 22.0-26.0 [facility] ABG Total Co2 26.6 meq/L 22.0-29.0 [facility] ([facility]) ABG Base Excess 1.6 [facility] ([facility]) ABG O2 Saturation 95.4 % 95.0-99.0 [facility] ([facility]) ABG Standard Hco3 25.9 meq/L 22.0-26.0 [facility] ([facility]) ID Date Data Source [id number] 03/14/2021 11:36:00 PM EDT [facility] ([facility]) Name Value Range Interpretation Code Description Data Yuridia rce(s) Supporting Document(s) Influenza A Amplification Laboratory test result MED[facility] ([facility]) Negative results do not preclude influen za or RSV virus infection and should not be used as the sole basis for treatment or other patient management decisions. Influenza B Amplification Laboratory test result [facility] ([facility]) Negative results do not preclude influen za or RSV virus infection and should not be used as the sole basis for treatment or other patient management decisions. RSV Amplification Laboratory test result [facility] ([facility]) Negative results do not preclude influen za or RSV virus infection and should not be used as the sole basis for treatment or other patient management decisions. Laboratory test finding (navigational concept) Laboratory test result MED[facility] ([facility]) A false negative result may occur [...] pathogens. DISCLAIMER: Testing was performed using the [employer] SARS-CoV-2 test. This test was developed and its performance characteristics determined by [employer]. This test has not been FDA cleared [...] or revoked sooner. ID Date Data Source [id number] 03/14/2021 11:36:00 PM EDT [facility] Name Value Range Interpretation Code Description Data Yuridia rce(s) Supporting Document(s) SARS coronavirus 2 RNA [Presence] in Res piratory specimen by KANA with probe detection NEGATIVE [facility] This lab was ordered by [facility] a nd reported by [facility]. ID Date Data Source [id number] 03/14/2021 09:10:00 PM EDT [facility] Name Value Range Interpretation Code Description Data Yuridia rce(s) Supporting Document(s) Appearance, Urine RFX Laboratory test result [facility] Color, Urine RFX Laboratory test result [facility] PH,Urine RFX 5.0 units 5.0-9.0 [facility] Specific Viola Ur Auto RFX 1.029 1.002-1.035 [facility] ([facility]) Protein, Urine Auto RFX Laboratory test result [facility] Glucose, Urine (Ua) Auto RFX Laboratory test result [facility] Ketone, Urine Auto RFX Laboratory test result [facility] Nitrite, Urine Auto RFX Laboratory test result [facility] Urobilinogen, Urine Auto RFX 4.0 mg/dL 0.0-2.0 [facility] Bilirubin, Urine Auto RFX Laboratory test result [facility] ([facility]) WBC, Urine Auto RFX 5 /HPF 0-3 [facility] Blood, Urine Blood RFX Laboratory test result [facility] ([facility]) Leukocyte Esterase Ur Auto RFX Laboratory test result [facility] ([facility]) Squam Epithelial Cell Ur Aurfx 0 /HPF 0-6 [facility] RBC, Urine Auto RFX 0 /HPF 0-3 [facility] ([facility]) Bacteria, Urine Auto RFX Laboratory test result [facility] ([facility]) Hyaline Cast, Urine Auto RFX 0 /LPF 0-1 M EDENT ([facility]) Mucus, Urine RFX Laboratory test result [facility] ([facility]) ID Date Data Source [id number] 03/14/2021 09:10:00 PM EDT [facility] ([facility]) Name Value Range Interpretation Code Description Data Yuridia rce(s) Supporting Document(s) aPTT in Blood by Coagulation assay 37.8 s 25.9-37.0 [facility] ([facility]) ID Date Data Source [id number] 03/14/2021 09:10:00 PM EDT [facility] ([facility]) Name Value Range Interpretation Code Description Data Yuridia rce(s) Supporting Document(s) Prothrombin Time 14.5 s 12.7-14.5 [facility] Inr 1.09 [facility] THERAPUTIC HUMAN INR VALUES INDICATIONS NORMAL RANGES PROPHYLAXIS/TREATMENT OF: VENOUS THROMBOSIS 2.0-3.0 PULMONARY EMBOLISM 2.0-3.0 PREVENTION OF SYSTEMIC EMBOLISM FROM: TISSUE HEART VALVES 2.0-3.0 ACUTE MYOCARDIAL INFARCTION 2.0-3.0 VALVULAR HEART DISEASE 2.0-3.0 ATRIAL FIBRILLATION 2.0-3.0 MECHANICAL VALVES(HIGH RISK) 2.5-3.5 RECURRENT MYOCARDIAL INFARCTION 2.5-3.5 ID Date Data Source [id number] 03/14/2021 09:10:00 PM EDT [facility] ([facility]) Name Value Range Interpretation Code Description Data Yuridia rce(s) Supporting Document(s) White Blood Count 10.5 10 4.0-10.0 [facility] ([facility]) Red Blood Count 4.10 10 4.30-6.10 [facility] ([facility]) Hemoglobin 12.2 g/dL 13.5-17.5 [facility] ([facility]) Mean Corpuscular Hemoglobin 29.8 pg 27.0-33.0 [facility] ([facility]) Hematocrit 38.1 % 42.0-52.0 [facility] Mean Corpuscular Volume 92.9 fl 80.0-96.0 [facility] ([facility]) Platelet Count, Automated 188 10 150-450 [facility] ([facility]) Mean Corpuscular HGB Conc 32.0 g/dL 32.0-36.5 [facility] ([facility]) Red Cell Distribution Width 14.3 % 11.5-14.5 [facility] ([facility]) Barren % 11.4 % 2.0-8.0 [facility]) Lymph % 22.6 % 24.0-44.0 [facility] Neutrophils % 62.5 % 36.0-66.0 [facility] ([facility]) Baso % 1.0 % 0.0-1.0 [facility]) Eos % 2.1 % 0.0-3.0 [facility] Neutrophils # 6.6 10 1.5-8.5 [facility] ([facility]) Immature Granulocyte % 0.4 % 0-3.0 [facility] ([facility]) Nucleated Red Blood Cell % 0.0 % 0-0 [facility] ([facility]) Eos # 0.2 10 0.0-0.5 [facility] ([facility]) Lymph # 2.4 10 1.5-5.0 [facility] Barren # 1.2 10 0.0-0.8 [facility] Baso # 0.1 10 0.0-0.2 [facility] ID Date Data Source [id number] 03/14/2021 09:10:00 PM EDT [facility] ([facility]) Name Value Range Interpretation Code Description Data Yuridia rce(s) Supporting Document(s) Lipoprotein lipase [Enzymatic activity/volume] in Serum or P lasma 411 U/L 73-393 [facility] ([facility]) Lactate [Mass/volume] in Serum or Plasma 0.9 mmol/L 0.4-2.0 [facility] ([facility]) Y/N query for Sepsis Lactate Rule: Y Ammonia [Mass/volume] in Blood 40 uMOL/L [facility] ([facility]) ID Date Data Source [id number] 03/14/2021 09:10:00 PM EDT [facility] ([facility]) Name Value Range Interpretation Code Description Data Yuridia rce(s) Supporting Document(s) Glucose, Fasting 91 mg/dL 70-100 [facility] ([facility]) Blood Urea Nitrogen 17 mg/dL 7-18 [facility] ([facility]) Creatinine For GFR 0.74 mg/dL 0.70-1.30 [facility] ([facility]) Glomerular Filtration Rate Laboratory test result [facility] ([facility]) <content>Units are mL/min/1.73 m2</content>
<content></content>
<content>Chronic Kidney Disease Staging per NKF:</content>
<content></content>
<content>Stage I & II GFR >=60 Normal to Mildly Decreased</content>
<content>Stage III GFR 30- 59 Moderately Decreased</content>
<content>Stage IV GFR 15-29 Severely Decreased</content>
<content>Stage V GFR <15 Very Little GFR Left</content>
<content>ESRD GFR <15 on COMM[employer]REACH WORKER</content>
<content></content> Sodium Level 140 meq/L 136-145 [facility] ([facility]) Potassium Serum 3.9 meq/L 3.5-5.1 [facility] ([facility]) Carbon Dioxide Level 28 meq/L 21-32 [facility] ([facility]) Anion Gap 6 meq/L 8-16 [facility] ([facility] Chloride Level 106 meq/L 98-107 [facility] ([facility]) Calcium Level 9.3 mg/dL 8.5-10.1 [facility] ([facility]) ID Date Data Source [id number] 03/14/2021 09:10:00 PM EDT [facility] ([facility]) Name Value Range Interpretation Code Description Data Yuridia rce(s) Supporting Document(s) Ast/Sgot 21 U/L 7-37 [facility] ([facility]) Alkaline Phosphatase 70 U/L 45-117 [facility] ([facility]) Alt/SGPT 30 U/L 12-78 [facility] ([facility]) Bilirubin,Direct 0.4 mg/dL 0.0-0.2 [facility] ([facility]) Bilirubin,Total 1.0 mg/dL 0.2-1.0 [facility] ([facility]) Albumin 3.3 GM/DL 3.2-5.2 [facility] ([facility]) Total Protein 7.4 GM/DL 6.4-8.2 [facility] ([facility]) Albumin/Globulin Ratio 0.8 [facility] ([facility]) ID Date Data Source [id number] 03/14/2021 09:10:00 PM EDT [facility]) Name Value Range Interpretation Code Description Data [facility](s) Supporting Document(s) CPK Creatine Phosphokinase 128 U/L 39-308 [facility] ([facility]) CK-MB Value Mass 2.8 ng/mL [facility]) MB/CK Relative Index 2.19 [facility] ([facility]) <content>DIAGNOSIS CRITERIA</content>
<content>MMB ng/ml Relative Index (RI)</content>
<content>NON-AMI < or = 5 N/A</content>
<content>ENRIQUEZ ZONE > 5 < or = 4</content>
<content>AMI > 5 > 4</content>
<content></content> Troponin I Laboratory [facility] <content>Troponin I Reference Interval f or Siemens [place] LOCI:</content>
<content></content>
<content>99th Percentile= 0.00-0.045 ng/ml</content>
<content></content>
<content>Risk Stratification:</content>
<content><= 0.10 ng/ml Decreased Risk for Adverse Clinical</content>
<content>Events.</content>
<content>0.10-1.50 ng/ml Increased Risk for Adverse Clinical</content>
<content>Events. Evaluation of additional</content>
<content>criterion and/or repeat testing in 2-6</content>
<content>hours is suggested to rule out myocardial</content>
<content>damage.</content>
<content>>= 1.50 ng/ml Indicative of Myocardial Injury.</content>
<content></content> ID Date Data Source [id number] 03/08/2021 11:38:00 AM EDT [facility] ([facility]) Name Value Range Interpretation Code Description Data Yuridia rce(s) Supporting Document(s) Creatinine 0.8 mg/dL 0.6-1.3 [facility] ([facility]) Glucose [Mass/volume] in Serum or Plasma 108 mg/dL 74-99 [facility] ([facility]) 100-125 mg/dL PRE-DIABETES/FASTING >126 mg/dL DIABETES/FASTING Urea nitrogen [Mass/volume] in Serum or Plasma 18 mg/dL 7-18 [facility] ([facility]) Sodium [Moles/volume] in Serum or Plasma 136 meq/L 136-145 [facility] ([facility]) Chloride [Moles/volume] in Serum or Plasma 100 meq/L 98-107 [facility] ([facility]) Potassium [Moles/volume] in Serum or Plasma 4.3 meq/L 3.5-5.1 [facility] ([facility]) Calcium [Mass/volume] in Serum or Plasma 9.5 mg/dL 8.5-10.1 [facility] ([facility]) Carbon dioxide, total [Moles/volume] in Serum or Plasma 31 meq/L 21 -32 [facility] ([facility]) Glomerular filtration rate/1.73 sq M pre dicted among non-blacks [Volume Rate/Area] in Serum or Plasma by Creatinine-based formula (MDRD) Laboratory test [facility] ([facility] ) Glomerular filtration rate/1.73 sq M pre dicted among blacks [Volume Rate/Area] in Serum or Plasma by Creatinine-based formula (MDRD) Laboratory test result [facility] ([facility]) <content>CHRONIC KIDNEY DISEASE STAGING PER NKF</content>
<content></content>
<content>STAGE I & II GFR >= 60 NORMAL TO MILDLY DECREASED</content>
<content>STAGE III GFR 30-59 MODERATELY DECREASED</content>
<content>STAGE IV GFR 15-29 SEVERELY DECREASED</content>
<content>STAGE V GFR <15 VERY LITTLE GFR LEFT</content>
<content>ESRD GFR <15 ON [employer] WORKER</content>
<content></content> ID Date Data Source [id number] 03/08/2021 11:38:00 AM EDT [facility] ([facility]) Name Value Range Interpretation Code Description Data Yuridia rce(s) Supporting Document(s) Magnesium 1.9 mg/dL 1.8-2.4 [facility] ID Date Data Source [id number] 03/03/2021 12:14:00 PM EDT [facility] ([facility]) Name Value Range Interpretation Code Description Data Yuridia rce(s) Supporting Document(s) Glucose [Mass/volume] in Serum or Plasma 175 mg/dL 74-99 [facility] ([facility]) 100-125 mg/dL PRE-DIABETES/FASTING >126 mg/dL DIABETES/FASTING Creatinine 0.7 mg/dL 0.6-1.3 [facility] Urea nitrogen [Mass/volume] in Serum or Plasma 21 mg/dL 7-18 [facility] ([facility]) Chloride [Moles/volume] in Serum or Plasma 104 meq/L 98-107 [facility] ([facility]) Potassium [Moles/volume] in Serum or Plasma 4.4 meq/L 3.5-5.1 [facility] ([facility]) Sodium [Moles/volume] in Serum or Plasma 140 meq/L 136-145 [facility] ([facility]) Calcium [Mass/volume] in Serum or Plasma 9.2 mg/dL 8.5-10.1 [facility] ([facility]) Glomerular filtration rate/1.73 sq M pre dicted among non-blacks [Volume Rate/Area] in Serum or Plasma by Creatinine-based formula (MDRD) Laboratory test result [facility] ([facility] ) Carbon dioxide, total [Moles/volume] in Serum or Plasma 31 meq/L 21 -32 [facility] Glomerular filtration rate/1.73 sq M pre dicted among blacks [Volume Rate/Area] in Serum or Plasma by Creatinine-based formula (MDRD) Laboratory test result [facility] ([facility]) <content>CHRONIC KIDNEY DISEASE STAGING PER NKF</content>
<content></content>
<content>STAGE I & II GFR >= 60 NORMAL TO MILDLY DECREASED</content>
<content>STAGE III GFR 30-59 MODERATELY DECREASED</content>
<content>STAGE IV GFR 15-29 SEVERELY DECREASED</content>
<content>STAGE V GFR <15 VERY LITTLE GFR LEFT</content>
<content>ESRD GFR <15 ON COMM[employer]RE[employer] WORKER</content>
<content></content> ID Date Data Source [id number] 03/03/2021 12:14:00 PM EDT [facility] ([facility]) Name Value Range Interpretation Code Description Data Yuridia rce(s) Supporting Document(s) Magnesium 1.5 mg/dL 1.8-2.4 [facility] ([facility]) ID Date Data Source [id number] 02/28/2021 11:23:00 AM EDT [facility] ([facility]) Name Value Range Interpretation Code Description Data Yuridia rce(s) Supporting Document(s) Ferritin [Mass/volume] in Serum or Plasma 33 ng/mL 26-388 [facility] ([facility]) ID Date Data Source [id number] 02/28/2021 11:23:00 AM EDT [facility] ([facility]) Name Value Range Interpretation Code Description Data Yuridia rce(s) Supporting Document(s) Hepatitis B virus surface Ab [Presence] in Serum by Im maurice Laboratory test result [facility] ([facility] ) ID Date Data Source [id number] 02/28/2021 11:23:00 AM EDT [facility] ([facility]) Name Value Range Interpretation Code Description Data Yuridia rce(s) Supporting Document(s) Total Iron Binding Capacity 456 ug/dL 250-450 [place] [facility] ([facility]) Percent Saturation 11.4 % 19.7-50.0 [facility] ([facility]) Iron (Fe) 52 ug/dL 65-175 [facility] ([facility]) ID Date Data Source [id number] 02/28/2021 11:23:00 AM EDT [facility]) Name Value Range Interpretation Code Description Data Yuridia rce(s) Supporting Document(s) Ammonia [Mass/volume] in Blood 48 uMOL/L [facility] ([facility]) ID Date Data Source [id number] 02/28/2021 11:23:00 AM EDT [facility] ([facility]) Name Value Range Interpretation Code Description Data Yuridia rce(s) Supporting Document(s) Hepatitis B Surface Antigen Laboratory test result [facility] Hepatitis C Virus Kelly Index 0.1 INDEX [place] [facility] ([facility] Negative Not infected with HCV, unless recent infection is suspected or other evidence exists to indicate HCV infection. Hepatitis B Core Antibody Igm Laboratory test result [facility] ([facility]) Hepatitis A Antibody Igm Laboratory test result [facility]) ID Date Data Source [id number] 02/28/2021 11:23:00 AM EDT [facility] Name Value Range Interpretation Code Description Data Yuridia rce(s) Supporting Document(s) Inr 1.18 [facility] ([facility]) THERAPUTIC HUMAN INR VALUES INDICATIONS NORMAL RANGES PROPHYLAXIS/TREATMENT OF: VENOUS THROMBOSIS 2.0-3.0 PULMONARY EMBOLISM 2.0-3.0 PREVENTION OF SYSTEMIC EMBOLISM FROM: TISSUE HEART VALVES 2.0-3.0 ACUTE MYOCARDIAL INFARCTION 2.0-3.0 VALVULAR HEART DISEASE 2.0-3.0 ATRIAL FIBRILLATION 2.0-3.0 MECHANICAL VALVES(HIGH RISK) 2.5-3.5 RECURRENT MYOCARDIAL INFARCTION 2.5-3.5 Prothrombin Time 15.4 s 12.7-14.5 [facility] ([facility]) ID Date Data Source [id number] 02/28/2021 11:21:00 AM EDT [facility] ([facility]) Name Value Range Interpretation Code Description Data Yuridia rce(s) Supporting Document(s) Hepatitis B virus surface Ab [Presence] in Serum by [facility] Laboratory test result [facility] ID Date Data Source [id number] 02/28/2021 11:20:00 AM EDT [facility] ([facility]) Name Value Range Interpretation Code Description Data Yuridia rce(s) Supporting Document(s) Erythrocytes [#/volume] in Blood by Automated count 4.40 x10*6/UL 4.2 0-6.30 [facility] ([facility] Leukocytes [#/volume] in Blood by Automated count 9.2 x10*3/UL 4.1-10 .9 [facility] ([facility] Hemoglobin [Mass/volume] in Blood 12.8 g/dL 12.0-18.0 [facility] ([facility] MCV 88.2 fL 80.0-97.0 [facility] ([facility]) Hematocrit [Volume Fraction] of Blood by Automated count 38.8 % 3 7.0-51.0 [facility] ([facility] MCH 29.1 pg 26.0-32.0 [facility] ([facility]) MCHC 33.0 g/dL 31.0-38.0 [facility] ([facility]) Erythrocyte distribution width [Ratio] by Automated count 13.9 % 11.6-13.7 [facility] ([facility]) MPV 8.5 FL 7.8-11.0 [facility] ([facility]) Lymph % 20.5 % 10.0-58.5 [facility] ([facility]) Platelets [#/volume] in Blood by Automated count 236 x10*3/UL 140-440 [facility] ([facility]) Neut % 74.4 % 37.0-92.0 [facility]) Mid % 5.1 % 1.7-9.3 [facility] Lymph # 1.9 x10*3/UL 0.6-4.1 [facility] ([facility]) Mid # 0.4 x10*3/UL 0.1-0.6 [facility] ([facility]) Neut # 6.9 x10*3/UL 2.0-7.8 [facility] ([facility]) ID Date Data Source [id number] 02/28/2021 11:20:00 AM EDT [facility] ([facility]) Name Value Range Interpretation Code Description Data Yuridia rce(s) Supporting Document(s) Glucose [Mass/volume] in Serum or Plasma 111 mg/dL 74-99 [facility] ([facility]) 100-125 mg/dL PRE-DIABETES/FASTING >126 mg/dL DIABETES/FASTING Urea nitrogen [Mass/volume] in Serum or Plasma 18 mg/dL 7-18 [facility] ([facility]) Potassium [Moles/volume] in Serum or Plasma 4.0 meq/L 3.5-5.1 [facility] ([facility]) Creatinine 0.7 mg/dL 0.6-1.3 [facility] ([facility]) Sodium [Moles/volume] in Serum or Plasma 140 meq/L 136-145 [facility] ([facility]) Carbon dioxide, total [Moles/volume] in Serum or Plasma 29 meq/L 21 -32 [facility] ([facility]) Calcium [Mass/volume] in Serum or Plasma 9.5 mg/dL 8.5-10.1 [facility] ([facility]) Chloride [Moles/volume] in Serum or Plasma 103 meq/L 98-107 [facility] ([facility]) Alkaline phosphatase isoenzyme [Units/volume] in Serum or Pl asma 63 mg/dL 46-116 [facility] ([facility]) Aspartate aminotransferase [Enzymatic activity/volume] in Serum or Plasma 27 U/L 15-37 [facility] ([facility] ) Total Bilirubin 0.7 mg/dL 0.2-1.0 [facility] Albumin [Mass/volume] in Serum or Plasma 3.3 g/dL 3.4-5.0 [facility] ([facility] Alanine aminotransferase [Enzymatic activity/volume] in Seru m or Plasma 30 U/L 12-78 [facility] Proteinase 3 Ab [Units/volume] in Serum 7.6 g/dL 6.4-8.2 [facility] Glomerular filtration rate/1.73 sq M pre dicted among blacks [Volume Rate/Area] in Serum or Plasma by Creatinine-based formula (MDRD) Laboratory test result [facility] ([facility] <content>CHRONIC KIDNEY DISEASE STAGING PER NKF</content>
<content></content>
<content>STAGE I & II GFR >= 60 NORMAL TO MILDLY DECREASED</content>
<content>STAGE III GFR 30-59 MODERATELY DECREASED</content>
<content>STAGE IV GFR 15-29 SEVERELY DECREASED</content>
<content>STAGE V GFR <15 VERY LITTLE GFR LEFT</content>
<content>ESRD GFR <15 ON COMM[employer]REACH WORKER</content>
<content></content> Glomerular filtration rate/1.73 sq M pre dicted among non-blacks [Volume Rate/Area] in Serum or Plasma by Creatinine-based formula (MDRD) Laboratory test result [facility] ([facility] A/G Ratio 0.77 CALC 1.00-1.90 [facility] ([facility]) ID Date Data Source [id number] 02/28/2021 11:20:00 AM EDT [facility] Name Value Range Interpretation Code Description Data Yuridia rce(s) Supporting Document(s) Urine Color Laboratory test result [facility] ([facility] Urine PH 6.0 units 5.0-9.0 [facility] ([facility]) Urine Appearance Laboratory test result [facility] Specific gravity of Urine 1.020 1.005-1.030 [facility] ([facility]) Urine Protein Laboratory test result 0-0 [facility] ([facility] Urine Blood Laboratory test result [facility] ([facility]) Urine Leukocytes Laboratory test result [facility] ([facility]) Glucose [Presence] in Urine Laboratory [facility] Urine Ketone Laboratory test result [facility] Urine Nitrite Laboratory test result [facility] ([facility] Urine Urobilinogen 0.2 mg/dL 0.2-1.0 [facility] ([facility]) Bilirubin.total [Mass/volume] in Serum or Plasma Laboratory [facility] res[facility] lt [facility]) ID Date Data Source [id number] 02/23/2021 09:02:00 PM EDT [facility] ([facility]) Name Value Range Interpretation Code Description Data Yuridia rce(s) Supporting Document(s) Laboratory test finding (navigational concept) 0.01 ng/mL 0.00-0.08 [facility] ([facility]) ID Date Data Source [id number] 02/23/2021 06:29:00 PM EDT [facility] Name Value Range Interpretation Code Description Data Yuridia rce(s) Supporting Document(s) Laboratory test finding (navigational concept) 0.00 ng/mL 0.00-0.08 [facility] ([facility]) ID Date Data Source [id number] 02/23/2021 04:20:00 PM EDT [facility] Name Value Range Interpretation Code Description Data Yuridia rce(s) Supporting Document(s) Influenza A Amplification Laboratory test result [facility] ([facility]) Negative results do not preclude influen za or RSV virus infection and should not be used as the sole basis for treatment or other patient management decisions. Influenza B Amplification Laboratory test result [facility] Negative results do not preclude influen za or RSV virus infection and should not be used as the sole basis for treatment or other patient management decisions. RSV Amplification Laboratory test result [facility] Negative results do not preclude influen za or RSV virus infection and should not be used as the sole basis for treatment or other patient management decisions. Laboratory test finding (navigational concept) Laboratory test result [facility] ([facility]) A false negative result may occur [...] pathogens. DISCLAIMER: Testing was performed using the [employer] SARS-CoV-2 test. This test was developed and its performance characteristics determined by [employer]. This test has not been FDA cleared [...] or revoked sooner. ID Date Data Source [id number] 02/23/2021 04:20:00 PM EDT [facility] Name Value Range Interpretation Code Description Data Yuridia rce(s) Supporting Document(s) SARS coronavirus 2 RNA [Presence] in Res piratory specimen by KANA with probe detection NEGATIVE [facility] This lab was ordered by [facility] a nd reported by [facility]. ID Date Data Source [id number] 02/23/2021 04:12:00 PM EDT [facility] ([facility]) Name Value Range Interpretation Code Description Data Yuridia rce(s) Supporting Document(s) Hemoglobin 12.4 g/dL 13.5-17.5 [facility] White Blood Count 10.8 10 4.0-10.0 [facility] ([facility]) Red Blood Count 4.15 10 4.30-6.10 [facility] ([facility]) Hematocrit 38.4 % 42.0-52.0 [facility] ([facility]) Mean Corpuscular Volume 92.5 fl 80.0-96.0 [facility] ([facility]) Mean Corpuscular Hemoglobin 29.9 pg 27.0-33.0 [facility] ([facility]) Red Cell Distribution Width 13.8 % 11.5-14.5 [facility] ([facility]) Mean Corpuscular HGB Conc 32.3 g/dL 32.0-36.5 [facility] ([facility]) Platelet Count, Automated 211 10 150-450 [facility] ([facility]) Neutrophils % 66.8 % 36.0-66.0 [facility] ([facility]) Lymph % 19.9 % 24.0-44.0 [facility]) Barren % 9.5 % 2.0-8.0 [facility] Eos % 2.3 % 0.0-3.0 [facility] Immature Granulocyte % 0.4 % 0-3.0 [facility] ([facility]) Baso % 1.1 % 0.0-1.0 [facility] Neutrophils # 7.2 10 1.5-8.5 [facility] ([facility]) Nucleated Red Blood Cell % 0.0 % 0-0 [facility] ([facility]) Lymph # 2.1 10 1.5-5.0 [facility]) Eos # 0.3 10 0.0-0.5 [facility] Barren # 1.0 10 0.0-0.8 [facility] Baso # 0.1 10 0.0-0.2 [facility] ID Date Data Source [id number] 02/23/2021 04:12:00 PM EDT [facility] ([facility]) Name Value Range Interpretation Code Description Data Yuridia rce(s) Supporting Document(s) CK-MB Value Mass 3.3 ng/mL [facility] ([facility]) CPK Creatine Phosphokinase 102 U/L 39-308 [facility] ([facility]) MB/CK Relative Index 3.24 [facility] ([facility]) <content>DIAGNOSIS CRITERIA</content>
<content>MMB ng/ml Relative Index (RI)</content>
<content>NON-AMI < or = 5 N/A</content>
<content>ENRIQUEZ ZONE > 5 < or = 4</content>
<content>AMI > 5 > 4</content>
<content></content> Troponin I Laboratory test result [facility] <content>Troponin I Reference Interval f or Siemens [place] LOCI:</content>
<content></content>
<content>99th Percentile= 0.00-0.045 ng/ml</content>
<content></content>
<content>Risk Stratification:</content>
<content><= 0.10 ng/ml Decreased Risk for Adverse Clinical</content>
<content>Events.</content>
<content>0.10-1.50 ng/ml Increased Risk for Adverse Clinical</content>
<content>Events. Evaluation of additional</content>
<content>criterion and/or repeat testing in 2-6</content>
<content>hours is suggested to rule out myocardial</content>
<content>damage.</content>
<content>>= 1.50 ng/ml Indicative of Myocardial Injury.</content>
<content></content> ID Date Data Source [id number] 02/23/2021 04:12:00 PM EDT [facility] ([facility]) Name Value Range Interpretation Code Description Data Yuridia rce(s) Supporting Document(s) Alt/SGPT 32 U/L 12-78 [facility] Alkaline Phosphatase 67 U/L 45-117 [facility] ([facility]) Ast/Sgot 24 U/L 7-37 [facility] ([facility]) Bilirubin,Total 0.9 mg/dL 0.2-1.0 [facility] ([facility]) Bilirubin,Direct 0.3 mg/dL 0.0-0.2 [facility] ([facility]) Total Protein 7.2 GM/DL 6.4-8.2 [facility] ([facility]) Albumin/Globulin Ratio 0.8 [facility] ([facility]) Albumin 3.1 GM/DL 3.2-5.2 [facility]) ID Date Data Source [id number] 02/23/2021 04:12:00 PM EDT [facility] ([facility]) Name Value Range Interpretation Code Description Data Yuridia rce(s) Supporting Document(s) Lipoprotein lipase [Enzymatic activity/volume] in Serum or P lasma 249 U/L 73-393 [facility] ([facility]) Natriuretic peptide.B prohormone N-Terminal [Mass/volu me] in Serum or Plasma 303 pg/mL [facility] ([facility] ) Thyrotropin [Units/volume] in Serum or Plasma by Detec tion limit <= 0.05 mIU/L 1.080 uIU/ML 0.358-3.740 [facility] ([facility] ) Thyroxine (T4) free [Mass/volume] in Serum or Plasma 1.07 ng/dL 0.76- 1.46 [facility] ([facility]) ID Date Data Source [id number] 02/23/2021 04:11:00 PM EDT [facility] ([facility]) Name Value Range Interpretation Code Description Data Yuridia rce(s) Supporting Document(s) Laboratory test finding (navigational concept) 0.00 ng/mL 0.00-0.08 [facility] ([facility]) ID Date Data Source [id number] 02/23/2021 04:10:00 PM EDT [facility] ([facility]) Name Value Range Interpretation Code Description Data Yuridia rce(s) Supporting Document(s) Laboratory test finding (navigational concept) 145 mg/dL 70-105 [facility] ([facility]) Laboratory test finding (navigational concept) 37.0 % 38.0-51.0 [facility] ([facility]) Laboratory test finding (navigational concept) 138 meq/L 136-145 [facility] ([facility]) Laboratory test finding (navigational concept) 5.2 mg/dL 4.5-5.3 [facility] ([facility]) Laboratory test finding (navigational concept) 100 meq/L 98-109 [facility] ([facility]) Laboratory test finding (navigational concept) 4.3 meq/L 3.5-5.1 [facility] ([facility]) Laboratory test finding (navigational concept) 20 mg/dL 8-26 [facility] ([facility]) Laboratory test finding (navigational concept) 27.0 MM/L 23.0-27.0 [facility] ([facility]) Laboratory test finding (navigational concept) 0.8 mg/dL 0.6-1.3 [facility] ([facility]) ID Date Data Source [id number] 01/31/2021 02:23:00 PM EDT [facility] ([facility]) Name Value Range Interpretation Code Description Data Yuridia rce(s) Supporting Document(s) Glucose [Mass/volume] in Serum or Plasma 75 mg/dL 74-99 [facility] ([facility]) 100-125 mg/dL PRE-DIABETES/FASTING >126 mg/dL DIABETES/FASTING Sodium [Moles/volume] in Serum or Plasma 139 meq/L 136-145 [facility] ([facility]) Urea nitrogen [Mass/volume] in Serum or Plasma 14 mg/dL 7-18 [facility] ([facility]) Creatinine 0.7 mg/dL 0.6-1.3 [facility] Chloride [Moles/volume] in Serum or Plasma 103 meq/L 98-107 [facility] ([facility]) Carbon dioxide, total [Moles/volume] in Serum or Plasma 30 meq/L 21 -32 [facility] ([facility]) Potassium [Moles/volume] in Serum or Plasma 4.5 meq/L 3.5-5.1 [facility] ([facility]) Alkaline phosphatase isoenzyme [Units/volume] in Serum or Pl asma 63 mg/dL 46-116 [facility] ([facility]) Calcium [Mass/volume] in Serum or Plasma 9.5 mg/dL 8.5-10.1 [facility] ([facility]) Total Bilirubin 0.8 mg/dL 0.2-1.0 [facility] ([facility]) Albumin [Mass/volume] in Serum or Plasma 3.4 g/dL 3.4-5.0 [facility] ([facility]) Alanine aminotransferase [Enzymatic activity/volume] in Seru m or Plasma 35 U/L 12-78 [facility] ([facility]) Aspartate aminotransferase [Enzymatic activity/volume] in Serum or Plasma 27 U/L 15-37 [facility] ([facility] ) Proteinase 3 Ab [Units/volume] in Serum 7.2 g/dL 6.4-8.2 [facility] ([facility]) Glomerular filtration rate/1.73 sq M pre dicted among non-blacks [Volume Rate/Area] in Serum or Plasma by Creatinine-based formula (MDRD) Laboratory test result [facility] ([facility] ) Glomerular filtration rate/1.73 sq M pre dicted among blacks [Volume Rate/Area] in Serum or Plasma by Creatinine-based formula (MDRD) Laboratory test result [facility] ([facility]) <content>CHRONIC KIDNEY DISEASE STAGING PER NKF</content>
<content></content>
<content>STAGE I & II GFR >= 60 NORMAL TO MILDLY DECREASED</content>
<content>STAGE III GFR 30-59 MODERATELY DECREASED</content>
<content>STAGE IV GFR 15-29 SEVERELY DECREASED</content>
<content>STAGE V GFR <15 VERY LITTLE GFR LEFT</content>
<content>ESRD GFR <15 ON [employer] WORKER</content>
<content></content> A/G Ratio 0.89 CALC 1.00-1.90 [facility] ([facility]) ID Date Data Source [id number] 01/31/2021 02:23:00 PM EDT [facility] ([facility]) Name Value Range Interpretation Code Description Data Yuridia rce(s) Supporting Document(s) Magnesium 1.6 mg/dL 1.8-2.4 [facility] ([facility]) ID Date Data Source [id number] 01/31/2021 02:23:00 PM EDT [facility] ([facility]) Name Value Range Interpretation Code Description Data Yuridia rce(s) Supporting Document(s) Hemoglobin A1c/Hemoglobin.total in Blood 6.9 % [facility] ([facility]) Lab Result Notes: Pre-Diabetes 5.7 - 6.4 % Diabetes = or > 6.5% Glucose mean value [Mass/volume] in Blood Estimated fr om glycated hemoglobin 151 mg/dL 60-110 [facility] ([facility] ) ID Date Data Source [id number] 01/31/2021 02:23:00 PM EDT [facility] ([facility]) Name Value Range Interpretation Code Description Data Yuridia rce(s) Supporting Document(s) Hemoglobin A1c/Hemoglobin.total in Blood Laboratory test result [facility] ([facility]) Magnesium, Serum Laboratory test result [facility] ([facility]) ID Date Data Source [id number] 11/10/2020 12:58:00 PM EDT [facility] Name Value Range Interpretation Code Description Data Yuridia rce(s) Supporting Document(s) Glucose [Mass/volume] in Serum or Plasma 104 mg/dL 74-99 [facility] ([facility]) 100-125 mg/dL PRE-DIABETES/FASTING >126 mg/dL DIABETES/FASTING Creatinine 0.7 mg/dL 0.6-1.3 [facility] Urea nitrogen [Mass/volume] in Serum or Plasma 14 mg/dL 7-18 [facility] ([facility]) Potassium [Moles/volume] in Serum or Plasma 4.5 meq/L 3.5-5.1 [facility] ([facility]) Sodium [Moles/volume] in Serum or Plasma 137 meq/L 136-145 [facility] ([facility]) Chloride [Moles/volume] in Serum or Plasma 103 meq/L 98-107 [facility] ([facility]) Carbon dioxide, total [Moles/volume] in Serum or Plasma 28 meq/L 21 -32 [facility] ([facility]) Alkaline phosphatase isoenzyme [Units/volume] in Serum or Pl asma 67 mg/dL 46-116 [facility] ([facility]) Calcium [Mass/volume] in Serum or Plasma 9.8 mg/dL 8.5-10.1 [facility] ([facility]) Aspartate aminotransferase [Enzymatic activity/volume] in Serum or Plasma 24 U/L 15-37 [facility] ([facility] ) Total Bilirubin 0.9 mg/dL 0.2-1.0 [facility] ([facility]) Alanine aminotransferase [Enzymatic activity/volume] in Seru m or Plasma 27 U/L 12-78 [facility] ([facility]) Albumin [Mass/volume] in Serum or Plasma 3.4 g/dL 3.4-5.0 [facility] ([facility]) A/G Ratio 0.85 CALC 1.00-1.90 [facility]) Glomerular filtration rate/1.73 sq M pre dicted among non-blacks [Volume Rate/Area] in Serum or Plasma by Creatinine-based formula (MDRD) Laboratory test result [facility] ([facility] Proteinase 3 Ab [Units/volume] in Serum 7.4 g/dL 6.4-8.2 [facility] ([facility] Glomerular filtration rate/1.73 sq M pre dicted among blacks [Volume Rate/Area] in Serum or Plasma by Creatinine-based formula (MDRD) Laboratory test result [facility] ([facility]) <content>CHRONIC KIDNEY DISEASE STAGING PER NKF</content>
<content></content>
<content>STAGE I & II GFR >= 60 NORMAL TO MILDLY DECREASED</content>
<content>STAGE III GFR 30-59 MODERATELY DECREASED</content>
<content>STAGE IV GFR 15-29 SEVERELY DECREASED</content>
<content>STAGE V GFR <15 VERY LITTLE GFR LEFT</content>
<content>ESRD GFR <15 ON [employer] WORKER</content>
<content></content> ID Date Data Source [id number] 11/10/2020 12:58:00 PM EDT [facility] ([facility]) Name Value Range Interpretation Code Description Data Yuridia rce(s) Supporting Document(s) Hemoglobin A1c/Hemoglobin.total in Blood 6.7 % [facility] ([facility] Lab Result Notes: Pre-Diabetes 5.7 - 6.4 % Diabetes = or > 6.5% Glucose mean value [Mass/volume] in Blood Estimated fr om glycated hemoglobin 146 mg/dL 60-110 [facility] ([facility] ID Date Data Source [id number] 11/10/2020 12:58:00 PM EDT [facility] ([facility] Name Value Range Interpretation Code Description Data Yuridia rce(s) Supporting Document(s) Leukocytes [#/volume] in Blood by Automated count 9.0 x10*3/UL 4.1-10 .9 [facility] ([facility] Hemoglobin [Mass/volume] in Blood 14.4 g/dL 12.0-18.0 [facility] ([facility] Hematocrit [Volume Fraction] of Blood by Automated count 43.1 % 3 7.0-51.0 [facility] ([facility] Erythrocytes [#/volume] in Blood by Automated count 4.70 x10*6/UL 4.2 0-6.30 [facility] ([facility] MCHC 33.5 g/dL 31.0-38.0 [facility] ([facility] MCH 30.7 pg 26.0-32.0 [facility] ([facility]) MCV 91.7 fL 80.0-97.0 [facility] ([facility] MPV 8.2 FL 7.8-11.0 [facility] ([facility]) Platelets [#/volume] in Blood by Automated count 237 x10*3/UL 140-440 [facility] ([facility] Erythrocyte distribution width [Ratio] by Automated count 12.9 % 11.6-13.7 [facility] ([facility]) Mid % 5.7 % 1.7-9.3 [facility] ([facility] Lymph % 20.4 % 10.0-58.5 [facility] ([facility] Neut % 73.9 % 37.0-92.0 [facility] Lymph # 1.8 x10*3/UL 0.6-4.1 [facility] ([facility]) Neut # 6.6 x10*3/UL 2.0-7.8 [facility] ([facility]) Mid # 0.6 x10*3/UL 0.1-0.6 [facility] ([facility]) ID Date Data Source [id number] 11/10/2020 12:58:00 PM EDT [facility] ([facility]) Name Value Range Interpretation Code Description Data Yuridia rce(s) Supporting Document(s) Hemoglobin A1c/Hemoglobin.total in Blood Laboratory test result [facility] ([facility]) ID Date Data Source [id number] 11/09/2020 09:09:00 AM EDT [facility] ([facility], ) Name Value Range Interpretation Code Description Data Yuridia rce(s) Supporting Document(s) Surgical pathology study Laboratory test result [facility] ([facility], ) FINAL DIAGNOSIS Descending and rectum polyps, polypectomy: Hyperplastic poly, fragments. 11/10/2020 - 100 CLINICAL DIAGNOSIS History colon cancer 11/09/2020 - 1450 GROSS DIAGNOSIS Received in formalin labeled "biopsy descending colon/polyps rectum" and consists of fragments of tissue, 0.2 x 0.1 x 0.1 cm. All in one. -OA 11/09/2020 - 1450 Signed MEGHAN HOLT MD 11/10/2020 1001 ID Date Data Source [id number] 11/04/2020 09:55:00 AM EDT [facility] Name Value Range Interpretation Code Description Data Yuridia rce(s) Supporting Document(s) SARS-CoV-2 (COVID-19) RNA [Presence] in Respiratory specimen by KANA with probe detection Not Detected [facility] This lab was ordered by [facility] and reported by [employer]. ID Date Data Source [id number] 09/08/2020 11:14:00 AM EDT [facility] ([facility]) Name Value Range Interpretation Code Description Data Yuridia rce(s) Supporting Document(s) Glucose [Mass/volume] in Serum or Plasma 113 mg/dL 74-99 [facility] ([facility]) 100-125 mg/dL PRE-DIABETES/FASTING >126 mg/dL DIABETES/FASTING Urea nitrogen [Mass/volume] in Serum or Plasma 14 mg/dL 7-18 [facility] ([facility]) Creatinine 0.8 mg/dL 0.6-1.3 [facility] ([facility]) Sodium [Moles/volume] in Serum or Plasma 135 meq/L 136-145 [facility] ([facility]) Potassium [Moles/volume] in Serum or Plasma 3.9 meq/L 3.5-5.1 [facility] ([facility]) Carbon dioxide, total [Moles/volume] in Serum or Plasma 30 meq/L 21 -32 [facility] ([facility]) Chloride [Moles/volume] in Serum or Plasma 99 meq/L 98-107 [facility] ([facility]) Calcium [Mass/volume] in Serum or Plasma 9.7 mg/dL 8.5-10.1 [facility] ([facility]) Total Bilirubin 1.1 mg/dL 0.2-1.0 [facility] ([facility]) Aspartate aminotransferase [Enzymatic activity/volume] in Serum or Plasma 42 U/L 15-37 [facility] ([facility] ) Alkaline phosphatase isoenzyme [Units/volume] in Serum or Pl asma 76 mg/dL 46-116 [facility] ([facility]) Albumin [Mass/volume] in Serum or Plasma 3.3 g/dL 3.4-5.0 [facility] ([facility]) Alanine aminotransferase [Enzymatic activity/volume] in Seru m or Plasma 59 U/L 12-78 [facility] ([facility]) Proteinase 3 Ab [Units/volume] in Serum 7.7 g/dL 6.4-8.2 [facility] ([facility]) A/G Ratio 0.75 CALC 1.00-1.90 [facility]) Glomerular filtration rate/1.73 sq M pre dicted among non-blacks [Volume Rate/Area] in Serum or Plasma by Creatinine-based formula (MDRD) Laboratory test result [facility] ([facility] Glomerular filtration rate/1.73 sq M pre dicted among blacks [Volume Rate/Area] in Serum or Plasma by Creatinine-based formula (MDRD) Laboratory test result [facility] ([facility] <content>CHRONIC KIDNEY DISEASE STAGING PER NKF</content>
<content></content>
<content>STAGE I & II GFR >= 60 NORMAL TO MILDLY DECREASED</content>
<content>STAGE III GFR 30-59 MODERATELY DECREASED</content>
<content>STAGE IV GFR 15-29 SEVERELY DECREASED</content>
<content>STAGE V GFR <15 VERY LITTLE GFR LEFT</content>
<content>ESRD GFR <15 ON [employer] WORKER</content>
<content></content> ID Date Data Source [id number] 09/08/2020 11:14:00 AM EDT [facility] ([facility]) Name Value Range Interpretation Code Description Data Yuridia rce(s) Supporting Document(s) Hemoglobin A1c/Hemoglobin.total in Blood 6.7 % [facility] ([facility] Lab Result Notes: Pre-Diabetes 5.7 - 6.4 % Diabetes = or > 6.5% Glucose mean value [Mass/volume] in Blood Estimated fr om glycated hemoglobin 146 mg/dL 60-110 [facility] ([facility] ID Date Data Source [id number] 09/08/2020 11:14:00 AM EDT [facility] Name Value Range Interpretation Code Description Data Yuridia rce(s) Supporting Document(s) Erythrocytes [#/volume] in Blood by Automated count 4.88 x10*6/UL 4.2 0-6.30 [facility] ([facility]) Leukocytes [#/volume] in Blood by Automated count 10.3 x10*3/UL 4.1-1 0.9 [facility] ([facility]) MCV 94.7 fL 80.0-97.0 [facility]) Hemoglobin [Mass/volume] in Blood 15.9 g/dL 12.0-18.0 [facility] ([facility]) Hematocrit [Volume Fraction] of Blood by Automated count 46.2 % 3 7.0-51.0 [facility] MCHC 34.4 g/dL 31.0-38.0 [facility] ([facility] MCH 32.6 pg 26.0-32.0 [facility] ([facility]) Platelets [#/volume] in Blood by Automated count 269 x10*3/UL 140-440 [facility] ([facility] Erythrocyte distribution width [Ratio] by Automated count 12.2 % 11.6-13.7 [facility] ([facility]) MPV 8.5 FL 7.8-11.0 [facility] ([facility] Lymph % 22.1 % 10.0-58.5 [facility] ([facility]) Mid % 5.8 % 1.7-9.3 [facility] ([facility]) Neut % 72.1 % 37.0-92.0 [facility] ([facility]) Mid # 0.7 x10*3/UL 0.1-0.6 [facility] ([facility]) Lymph # 2.2 x10*3/UL 0.6-4.1 [facility] ([facility]) Neut # 7.4 x10*3/UL 2.0-7.8 [facility] ([facility]) ID Date Data Source [id number] 08/23/2020 10:19:00 AM EDT [facility] ([facility] Name Value Range Interpretation Code Description Data Yuridia rce(s) Supporting Document(s) Influenza A Amplification Laboratory test result [facility] ([facility]) Negative results do not preclude influen za or RSV virus infection and should not be used as the sole basis for treatment or other patient management decisions. Influenza B Amplification Laboratory test result [facility] ([facility]) Negative results do not preclude influen za or RSV virus infection and should not be used as the sole basis for treatment or other patient management decisions. RSV Amplification Laboratory test result [facility] ([facility]) Negative results do not preclude influen za or RSV virus infection and should not be used as the sole basis for treatment or other patient management decisions. Laboratory test finding (navigational concept) Laboratory test result [facility] ([facility]) A false negative result may occur [...] pathogens. DISCLAIMER: Testing was performed using the [employer] SARS-CoV-2 test. This test was developed and its performance characteristics determined by [employer]. This test has not been FDA cleared [...] or revoked sooner. ID Date Data Source [id number] 08/23/2020 10:19:00 AM EDT [facility] Name Value Range Interpretation Code Description Data Yuridia rce(s) Supporting Document(s) SARS coronavirus 2 RNA [Presence] in Res piratory specimen by KANA with probe detection NEGATIVE [facility] This lab was ordered by [facility] a nd reported by [facility]. ID Date Data Source [id number] 08/23/2020 08:27:00 AM EDT [facility] ([facility]) Name Value Range Interpretation Code Description Data Yuridia rce(s) Supporting Document(s) Laboratory test finding (navigational concept) 0.01 ng/mL 0.00-0.08 [facility] ([facility]) ID Date Data Source [id number] 08/23/2020 08:25:00 AM EDT [facility] ([facility]) Name Value Range Interpretation Code Description Data Yuridia rce(s) Supporting Document(s) Laboratory test finding (navigational concept) 45.0 % 38.0-51.0 [facility] ([facility]) Laboratory test finding (navigational concept) 139 meq/L 136-145 [facility] ([facility]) Laboratory test finding (navigational concept) 158 mg/dL 70-105 [facility] ([facility]) Laboratory test finding (navigational concept) 4.4 meq/L 3.5-5.1 [facility] ([facility]) Laboratory test finding (navigational concept) 4.6 mg/dL 4.5-5.3 [facility] ([facility]) Laboratory test finding (navigational concept) 101 meq/L 98-109 [facility] ([facility]) Laboratory test finding (navigational concept) 31.0 MM/L 23.0-27.0 [facility] ([facility]) Laboratory test finding (navigational concept) 10 mg/dL 8-26 [facility] ([facility]) Laboratory test finding (navigational concept) 0.6 mg/dL 0.6-1.3 [facility] ([facility]) ID Date Data Source [id number] 08/23/2020 08:20:00 AM EDT [facility] ([facility]) Name Value Range Interpretation Code Description Data Yuridia rce(s) Supporting Document(s) Magnesium [Moles/volume] in Serum or Plasma 1.6 mg/dL 1.8-2.4 [facility] Natriuretic peptide.B prohormone N-Terminal [Mass/volu me] in Serum or Plasma 285 pg/mL [facility] Thyrotropin [Units/volume] in Serum or Plasma by Detec tion limit <= 0.05 mIU/L 0.774 uIU/ML 0.358-3.740 [facility] ([facility] ) ID Date Data Source [id number] 08/23/2020 08:20:00 AM EDT [facility] Name Value Range Interpretation Code Description Data Yuridia rce(s) Supporting Document(s) Ast/Sgot 42 U/L 7-37 [facility]) Alt/SGPT 33 U/L 12-78 [facility]) Alkaline Phosphatase 90 U/L 45-117 [facility] ([facility]) Bilirubin,Total 1.3 mg/dL 0.2-1.0 [facility] ([facility]) Bilirubin,Direct 0.6 mg/dL 0.0-0.2 [facility] ([facility]) Total Protein 7.7 GM/DL 6.4-8.2 [facility] ([facility]) Albumin 3.1 GM/DL 3.2-5.2 [facility] Albumin/Globulin Ratio 0.7 [facility] ([facility]) ID Date Data Source [id number] 08/23/2020 08:20:00 AM EDT [facility] ([facility]) Name Value Range Interpretation Code Description Data Yuridia rce(s) Supporting Document(s) Prothrombin Time 16.2 s 12.5-14.3 [facility] ([facility]) Inr 1.27 [facility] THERAPUTIC HUMAN INR VALUES INDICATIONS NORMAL RANGES PROPHYLAXIS/TREATMENT OF: VENOUS THROMBOSIS 2.0-3.0 PULMONARY EMBOLISM 2.0-3.0 PREVENTION OF SYSTEMIC EMBOLISM FROM: TISSUE HEART VALVES 2.0-3.0 ACUTE MYOCARDIAL INFARCTION 2.0-3.0 VALVULAR HEART DISEASE 2.0-3.0 ATRIAL FIBRILLATION 2.0-3.0 MECHANICAL VALVES(HIGH RISK) 2.5-3.5 RECURRENT MYOCARDIAL INFARCTION 2.5-3.5 ID Date Data Source [id number] 08/23/2020 08:20:00 AM EDT [facility] ([facility]) Name Value Range Interpretation Code Description Data Yuridia rce(s) Supporting Document(s) White Blood Count 7.8 10 4.0-10.0 [facility] ([facility]) Hematocrit 42.5 % 42.0-52.0 [facility] Hemoglobin 14.3 g/dL 13.5-17.5 [facility] Red Blood Count 4.28 10 4.30-6.10 [facility] ([facility]) Mean Corpuscular Volume 99.3 fl 80.0-96.0 [facility] ([facility]) Mean Corpuscular Hemoglobin 33.4 pg 27.0-33.0 [facility] ([facility]) Red Cell Distribution Width 12.3 % 11.5-14.5 [facility] D[facility] ([facility]) Mean Corpuscular HGB Conc 33.6 g/dL 32.0-36.5 [facility] NT ([facility]) Platelet Count, Automated 164 10 150-450 [facility] NT ([facility]) Lymph % 23.1 % 24.0-44.0 [facility] ([facility]) Neutrophils % 62.1 % 36.0-66.0 [facility] ([facility]) Barren % 10.3 % 2.0-8.0 [facility]) Baso % 1.4 % 0.0-1.0 [facility]) Eos % 2.6 % 0.0-3.0 [facility] ([facility]) Immature Granulocyte % 0.5 % 0-3.0 [facility] ([facility]) Neutrophils # 4.9 10 1.5-8.5 [facility] ([facility]) Nucleated Red Blood Cell % 0.0 % 0-0 MED ENT ([facility]) Lymph # 1.8 10 1.5-5.0 [facility]) Eos # 0.2 10 0.0-0.5 [facility] ([facility]) Baso # 0.1 10 0.0-0.2 [facility]) Barren # 0.8 10 0.0-0.8 [facility] ID Date Data Source [id number] 07/04/2020 12:00:00 AM EST [place] Name Value Range Interpretation Code Description Data Yuridia rce(s) Supporting Document(s) SARS-CoV2 Rapid Antigen Negative [facility] This lab was ordered by [facility] and reported by [facility]. Procedure Social History Code Duration Value Status Description Data Source(s ) Smoking 03/23/2021 12:00:00 AM EDT Patient has never smoked co mpleted Patient has never smoked [facility] ([facility]) Alcohol intake 03/03/2021 12:00:00 AM EDT Ex-drinker (finding) comp leted Ex- drinker (finding) [facility] Alcohol intake 12/21/2020 12:00:00 AM EDT Ex-drinker (finding) comp leted Ex- drinker (finding) [facility] Alcohol intake 10/28/2020 12:00:00 AM EDT Current drinker of al cohol (finding) completed Current drinker of alcohol (finding) [facility] Vital Signs ID Date Data Source UNK Name Value Range Interpretation Code Description Data Source(s) Body temperature 97.2 [degF] 97.2 [degF] MEDGIL ([facility], ) Body weight 266.00 [lb_av] 266.00 [lb_av] SARKIS Gallo ([facility]) Body mass index (BMI) [Ratio] 38.2 kg/m2 38.2 k g/m2 FREDA ([facility]) Systolic blood pressure 100 mm[Hg] 100 mm[Hg] DENISSE ([facility]) Diastolic blood pressure 72 mm[Hg] 72 mm[Hg] FREDA ([facility]) Heart rate 82 /min 82 /min FREDA ([facility]) Body height 70 [in_i] 70 [in_i] [facility] 5'10" Systolic blood pressure 110 mm[Hg] 110 mm[Hg] [facility] Body mass index (BMI) [Ratio] 39.68 kg/m2 39.68 kg/m2 [facility] Diastolic blood pressure 68 mm[Hg] 68 mm[Hg] [facility] Oxygen saturation in Arterial blood by Pulse oximetry 95 % 95 % [facility] Heart rate 71 /min 71 /min [facility] Body height 172.7 cm 172.7 cm [facility] Body weight 118.389 kg 118.389 kg [facility] Systolic blood pressure 102 mm[Hg] 102 mm[Hg] M DENISSE ([facility]) Diastolic blood pressure 82 mm[Hg] 82 mm[Hg] MEDGIL ([facility]) Heart rate 58 /min 58 /min [facility] ([facility]) Body height 70 [in_i] 70 [in_i] [facility] ([facility]) 5'10" Body weight 262.00 [lb_av] 262.00 [lb_av] MEDEN T ([facility]) Oxygen saturation in Arterial blood by Pulse oximetry 99 % 99 % [facility] Air Body mass index (BMI) [Ratio] 37.6 kg/m2 37.6 k g/m2 [facility] ([facility]) Body weight 266.00 [lb_av] 266.00 [lb_av] MEDEN T ([facility]) Systolic blood pressure 102 mm[Hg] 102 mm[Hg] [facility] ([facility]) Diastolic blood pressure 80 mm[Hg] 80 mm[Hg] [facility] Heart rate 81 /min 81 /min [facility] Body height 70 [in_i] 70 [in_i] [facility] 5'10" Oxygen saturation in Arterial blood by Pulse oximetry 99 % 99 % [facility] Air Body mass index (BMI) [Ratio] 38.2 kg/m2 38.2 k g/m2 [facility] ([facility]) Body mass index (BMI) [Ratio] 35.7 kg/m2 35.7 k g/m2 [facility] Diastolic blood pressure 94 mm[Hg] 94 mm[Hg] [facility] ([facility]) Systolic blood pressure 118 mm[Hg] 118 mm[Hg] [facility] Heart rate 73 /min 73 /min [facility]) Body height 70 [in_i] 70 [in_i] [facility] 5'10" Body weight 249.00 [lb_av] 249.00 [lb_av] MEDEN T ([facility]) Oxygen saturation in Arterial blood by Pulse oximetry 98 % 98 % [facility] ([facility]) Body temperature 97.9 [degF] 97.9 [degF] [facility] ([facility], ) Systolic blood pressure 100 mm[Hg] 100 mm[Hg] [facility] Diastolic blood pressure 70 mm[Hg] 70 mm[Hg] [facility] Heart rate 76 /min 76 /min [facility] Body height 172.7 cm 172.7 cm [facility] Body weight 109.861 kg 109.861 kg [facility] Body mass index (BMI) [Ratio] 36.83 kg/m2 36.83 kg/m2 [facility] Oxygen saturation in Arterial blood by Pulse oximetry 96 % 96 % [facility] Body temperature 98.7 [degF] 98.7 [degF] [facility] ([facility], ) Systolic blood pressure 118 mm[Hg] 118 mm[Hg] EDENT ([facility]) Diastolic blood pressure 62 mm[Hg] 62 mm[Hg] [facility] ([facility]) Heart rate 70 /min 70 /min [facility] ([facility]) Body height 70 [in_i] 70 [in_i] [facility] ([facility]) 5'10" Body weight 240.00 [lb_av] 240.00 [lb_av] MEDEN T ([facility]) Body mass index (BMI) [Ratio] 34.4 kg/m2 34.4 k g/m2 [facility] ([facility]) Diastolic blood pressure 80 mm[Hg] 80 mm[Hg] [facility] Systolic blood pressure 110 mm[Hg] 110 mm[Hg] [facility] Heart rate 101 /min 101 /min [facility] Respiratory rate 18 /min 18 /min [facility] Body weight 111.585 kg 111.585 kg [facility] Body mass index (BMI) [Ratio] 37.40 kg/m2 37.40 kg/m2 [facility] Oxygen saturation in Arterial blood by Pulse oximetry 97 % 97 % [facility] Oxygen saturation in Arterial blood by [facility]ulse oximetry 97 % 97 % [facility] Systolic blood pressure 135 mm[Hg] 135 mm[Hg] EDENT ([facility]) Diastolic blood pressure 93 mm[Hg] 93 mm[Hg] [facility] ([facility]) Respiratory rate 18 /min 18 /min [facility] ( [facility]) Heart rate 91 /min 91 /min [facility] ([facility]) [place] body weight 166 [lb_av] 166 [lb_av] MED[facility] T ([facility]) Oxygen saturation in Arterial blood by Pulse oximetry 97 % 97 % [facility] ([facility]) Body weight 113.400 kg 113.400 kg [facility] ([facility]) Body temperature 97.2 [degF] 97.2 [degF] [facility] ([facility]) Body height 70 [in_i] 70 [in_i] [facility] ([facility]) 5'10" Body weight 250.00 [lb_av] 250.00 [lb_av] MED[facility] T ([facility]) Body mass index (BMI) [Ratio] 35.9 kg/m2 35.9 k g/m2 [facility] ([facility]) [place] body weight 166 [lb_av] 166 [lb_av] [facility] T ([facility]) Body weight 113.400 kg 113.400 kg [facility] ([facility]) Body surface area Derived from formula 2.29 m2 2.29 m2 [facility] ([facility]) Respiratory rate 18 /min 18 /min [facility] ( [facility]) Body temperature 97.2 [degF] 97.2 [degF] [facility] ([facility]) Body height 70 [in_i] 70 [in_i] [facility] ([facility]) 5'10" Body weight 250.00 [lb_av] 250.00 [lb_av] [facility] T ([facility]) Body mass index (BMI) [Ratio] 35.9 kg/m2 35.9 k g/m2 [facility] ([facility]) Body surface area Derived from formula 2.29 m2 2.29 m2 [facility] ([facility]) Systolic blood pressure 113 mm[Hg] 113 mm[facility]Hg] [facility] Body height 70 [in_i] 70 [in_i] [facility] ([facility]) 5'10" Respiratory rate 17 /min 17 /min [facility] ( [facility]) Body weight 250.75 [lb_av] 250.75 [lb_av] [facility] T ([facility]) Body mass index (BMI) [Ratio] 36.0 kg/m2 36.0 k g/m2 [facility] ([facility]) Diastolic blood pressure 73 mm[Hg] 73 mm[Hg] [facility] ([facility]) Heart rate 84 /min 84 /min [facility] ([facility]) Oxygen saturation in Arterial blood by Pulse oximetry 100 % 100 % [facility] ([facility]) Body temperature 95.4 [degF] 95.4 [degF] [facility] ([facility]) [place] body weight 166 [lb_av] 166 [lb_av] [facility] T ([facility]) Body weight 113.740 kg 113.740 kg [facility] ([facility]) Body surface area Derived from formula 2.30 m2 2.30 m2 [facility] ([facility]) Body mass index (BMI) [Ratio] 35.7 kg/m2 35.7 k g/m2 [facility] ([facility]) Systolic blood pressure 122 mm[Hg] 122 mm[Hg] M [facility] ([facility]) Diastolic blood pressure 86 mm[Hg] 86 mm[Hg] [facility] ([facility]) Body height 70 [in_i] 70 [in_i] [facility] ([facility]) 5'10" Body weight 248.50 [lb_av] 248.50 [lb_av] MED[facility] T ([facility]) Body surface area Derived from formula 2.29 m2 2.29 m2 [facility] ([facility], ) [place] body weight 166 [lb_av] 166 [lb_av] [facility] Body weight 112.720 kg 112.720 kg [facility] ([facility], ) Systolic blood pressure 118 mm[Hg] 118 mm[Hg] M EDENT ([facility]) Diastolic blood pressure 62 mm[Hg] 62 mm[Hg] [facility] Body weight 250.00 [lb_av] 250.00 [lb_av] [facility] Body mass index (BMI) [Ratio] 35.9 kg/m2 35.9 k g/m2 [facility] ([facility]) Heart rate 68 /min 68 /min [facility] ([facility]) Body height 70 [in_i] 70 [in_i] [facility] ([facility]) 5'10" Patient Treatment Plan of Care Planned Activity Planned Date Details Description Data Source (s) Lactulose 667 MG/ML Oral Solution 03/02/2021 12:00:00 AM EDT [facility] Furosemide 40 MG Oral Tablet 02/28/2021 12:00:00 AM EDT [facility] Metoprolol Tartrate 25 MG Oral Tablet 02/24/2021 12:00:00 AM EDT [facility] atorvastatin 20 MG Oral Tablet 02/24/2021 12:00:00 AM EDT [facility] apixaban 5 MG Oral Tablet 01/31/2021 12:00:00 AM EDT [facility] Cyclobenzaprine hydrochloride 10 MG Oral Tablet 01/02/2021 12:00:00 AM EDT [facility] Lisinopril 2.5 MG Oral Tablet 12/21/2020 12:00:00 AM EDT [facility] apixaban 5 MG Oral Tablet 12/15/2020 12:00:00 AM EDT [facility] Metoprolol Tartrate 50 MG Oral Tablet 10/28/2020 12:00:00 AM EDT [facility] Lisinopril 10 MG Oral Tablet 10/28/2020 12:00:00 AM EDT [facility] ropinirole 4 MG Oral Tablet 08/30/2020 12:00:00 AM EDT [facility] Metformin hydrochloride 1000 MG Oral Tablet 08/30/2020 12:00:00 AM EDT [facility] Magnesium Oxide 500 MG Oral Tablet 08/30/2020 12:00:00 AM EDT [facility] atorvastatin 40 MG Oral Tablet 08/30/2020 12:00:00 AM EDT [facility] Pravastatin Sodium 10 MG Oral Tablet 01/13/2020 12:00:00 AM EDT [facility] Metoprolol Tartrate 25 MG Oral Tablet 12/16/2019 12:00:00 AM EDT [facility] Hydrochlorothiazide 25 MG Oral Tablet 11/12/2019 12:00:00 AM EDT [facility] Lisinopril 10 MG Oral Tablet 11/12/2019 12:00:00 AM EDT [facility] Metformin hydrochloride 500 MG Oral Tablet 10/24/2019 12:00:00 AM E DT [facility]
[2021-04-07 15:00] LABS: BASO % 0.7 % (0.0-1.0); EOS # 0.2 10^3/uL (0.0-0.5); EOS % 2.7 % (0.0-3.0); HEMATOCRIT 40.6 % (42.0-52.0); HEMOGLOBIN 13.3 g/dl (13.5-17.5); LYMPH % 33.1 % (24.0-44.0); MEAN CORPUSCULAR HGB CONC 32.8 g/dl (32.0-36.5); MEAN CORPUSCULAR VOLUME 91.6 fl (80.0-96.0); MONO # 0.9 10^3/uL (0.0-0.8); MONO % 15.3 % (2.0-8.0); NEUTROPHILS # 2.8 10^3/uL (1.5-8.5); NEUTROPHILS % 47.9 % (36.0-66.0); PLATELET COUNT, AUTOMATED 153 10^3/uL (150-450); RED BLOOD COUNT 4.43 10^6/uL (4.30-6.10); WHITE BLOOD COUNT 5.9 10^3/uL (4.0-10.0)
--- NOTE | 2021-04-07 15:06 | REP ---
INDICATION: DYSPNEA/COUGH. COMPARISON: 04/05/2021 at 2:21 p.m. TECHNIQUE: Portable FINDINGS: The technique utilized in obtaining the radiograph has magnified the cardiac silhouette and accentuated the interstitial markings. There is cardiomegaly accentuated by technique status quo. The single chamber bipolar pacemaker devices unchanged. Lung hansen are unchanged. No acute patchy parenchymal opacities or pleural effusions have developed. IMPRESSION: There is no acute cardiopulmonary disease. <Electronically signed by David Marie > 04/07/21 [id number]
[2021-04-07 15:24] LABS: ALBUMIN 3.4 GM/DL (3.2-5.2); ALT/SGPT 38 U/L (12-78); BILIRUBIN,DIRECT 0.3 MG/DL (0.0-0.2); BILIRUBIN,TOTAL 0.8 MG/DL (0.2-1.0); BLOOD UREA NITROGEN 12 MG/DL (7-18); CALCIUM LEVEL 9.4 MG/DL (8.5-10.1); CARBON DIOXIDE LEVEL 30 MEQ/L (21-32); CHLORIDE LEVEL 105 MEQ/L (98-107); CPK CREATINE PHOSPHOKINASE 87 U/L (39-308); CREATININE FOR GFR 0.75 MG/DL (0.70-1.30); GLOMERULAR FILTRATION RATE > 60.0 (>56); GLUCOSE, FASTING 99 MG/DL (70-100); NT-PRO BNP 514 PG/ML (<125); POTASSIUM SERUM 3.9 MEQ/L (3.5-5.1); SODIUM LEVEL 140 MEQ/L (136-145); THYROXINE (T4) 12.7 UG/DL (4.5-12.0); TOTAL PROTEIN 8.2 GM/DL (6.4-8.2); TROPONIN I < 0.02 NG/ML (< 0.10)
--- OUTSIDE RECORDS SUMMARY | 2021-04-07 17:14 | CCD ---
Author Author [facility] Organization [facility] Address Unknown Phone Unavailable Care Team Providers Care Movable Bulkhead Installer Name Role Phone Isra Goldman MD Unavailable [...] GRACE PARKS Unavailable Unavailable EUGENE, MARY GRACE APRKS Unavailable Unavailable EUGENE, MARY GRACE PARKS Unavailable [...] Unavailable Unavailable EUGENEMARY GRACE MD Unavailable Unavailable EUGNEEMARY GRACE MD Unavailable Unavailable EUGENEMARY GRACE MD [...] MD Unavailable Unavailable MollisonCheco MD Unavailable Unavailable MollisonhCeco MD Unavailable Unavailable MollisonCheco MD Unavailable Unavailable MollisonCheco MD Unavailable Unavailable MollisonCheco MD Unavailable Unavailable MollisonCheco MD Unavailable Unavailable Vici, Christopher DO Unavailable Unavailable Lisseth, Christopher DO Unavailable Unavailable Vici, Christopher DO Unavailable Unavailable Vici, Christopher DO Unavailable Unavailable Vici, Christopher DO Unavailable Unavailable Lisseth, Christopher DO [...] is protected by Article 27-F of the [facility] Public Health law. If you continue you may have access to information: Regarding HIV / AIDS; Provided by facilities licensed or operated by the [facility] Office of Mental Health; or Provided by the [facility] Office for People With Developmental Disabilities. If such information is present, then the following [facility] mandated warning applies: This information has been [...] Source(s) Unknown Male Problem MEDENT ([facility]) Unknown Male Problem [facility] ([facility]) Unknown Female Problem MED[facility] ([facility]) Encounters Encounter Providers Location Date Indications Data Source(s ) Office Visit Attender: Marek Wagoner/Chip/Varghese/Lisa baltazar 03/27/2021 02:30:00 PM EDT [facility] ([facility] Outpatient Attender: Blanche POWER Main Office 03/23/2021 12:45:00 PM EDT [facility] ([facility]) Outpatient Attender: Milton Ocampo 03/08/2021 11:00:00 AM EDT MEDENT ([facility] ) Outpatient Attender: MARY GRACE KEENANSJDorisELIUD 01:16:01 PM EDT - 03/03/2021 02:05:15 PM EDT [facility] Outpatient Attender: Milton Arboleda 03/03/2021 11:40:00 AM EDT MEDENT ([facility] ) Outpatient Attender: Shaileshluna Arboleda 02/28/2021 10:40:00 AM EDT MEDENT ([facility] ) Office Visit Attender: Marek Wagoner/Chip/Varghese/Re indl 02/21/2021 09:15:00 AM EDT [facility] ([facility]) Outpatient Attender: Milton Montanez DO Lisseth Dominguezkaylabasil 01/31/2021 01:40:00 PM EDT MED[facility] ([facility] ) Outpatient Attender: Marek Wagoner/Chip/Varghese/Re indl 01/17/2021 02:00:00 PM EDT [facility] ([facility] Outpatient Attender: MARY GRACE LYMAN-SJP.ELIUD 12:00:00 AM EDT - 12/21/2020 10:26:08 AM EDT [facility] Outpatient Attender: Marek Wagoner/Chip/Varghese/Re indl 12/20/2020 09:15:00 AM EDT [facility] ([facility] Outpatient Attender: Marek Wagoner/Chip/Varghese/Re indl 12/15/2020 10:45:00 AM EDT [facility] ([facility] Outpatient Attender: Nader Hurt 11/10 11:30:00 AM EDT MED[facility] ([facility] ) Outpatient Attender: MARY GRACE KEENANSJP.ELIUD 10/28/2020 12:00:00 AM EDT [facility] Outpatient Attender: Marek Wagoner/Chip/Varghese/Re indl 10/07/2020 02:15:00 PM EDT MEDENT ([facility], ) Outpatient Attender: Marek Wagoner/Chip/Varghese/Re indl 09/22/2020 09:00:00 AM EDT MED[facility] ([facility], ) Outpatient Attender: Nader Hurt 09/08 10:00:00 AM EDT MED[facility] ([facility] ) Immunizations Vaccine Date Status Description Data Source(s) COVID-19 VACCINE Moderna 10/07/2020 12:00:00 AM EDT completed [facility] Vaccine Series Complete: YESThis Data wa s Submitted to [facility] Via [employer]. COVID-19 VACCINE Moderna 09/09/2020 12:00:00 AM EDT completed [facility] Vaccine Series Complete: NOThis Data was Submitted to [facility] Via [employer]. Medications Medication Brand Name Start Date Product Form Dose Route Admi nistrative Instructions Pharmacy Instructions Status Indications Reaction Description Data Source(s) ferrous sulfate 325 MG Oral Tablet Ferrous Sulfate 03/08/2021 12:00 :00 AM EDT ORAL active MED[facility] ([facility]) Spironolactone 25 MG Oral Tablet Spironolactone 03/08/2021 12:00:00 A M EDT ORAL active [facility] ([facility]) Lactulose 667 MG/ML Oral Solution Lactulose Encephalop athy 10 GM/15ML SOLN Lactulose Encephalopathy 10 GM/15ML SOLN 03/02/2021 12:00:00 AM EDT active [facility] Lactulose 667 MG/ML Oral Solution Lactulose 03/01/2021 12:00:00 AM EDT ORAL active [facility] ([facility]) Furosemide 40 MG Oral Tablet furosemide (LASIX) 40 MG tablet furosemide (LASIX) 40 MG tablet 02/28/2021 12:00:00 AM EDT active [facility] Furosemide 40 MG Oral Tablet Furosemide 02/28/2021 12:00:00 AM EDT active [facility] ([facility]) atorvastatin 20 MG Oral Tablet atorvastatin (LIPITOR) 20 MG tablet atorvastatin (LIPITOR) 20 MG tablet 02/24/2021 12:00:00 AM EDT active [facility] Metoprolol Tartrate 25 MG Oral Tablet me toprolol tartrate (LOPRESSOR) 25 MG tablet metoprolol tartrate (LOPRESSOR) 25 MG tablet 02/24/2021 12:0 0:00 AM EDT 25 mg Oral active Take 25 mg by mo uth daily [facility] Acetaminophen 325 MG / Oxycodone Hydrochloride 5 MG Or al Tablet [Percocet] Percocet 02/08/2021 12:00:00 AM EDT ORAL completed MED[facility] ([facility], ) Metoprolol Tartrate 25 MG Oral Tablet Metoprolol Tartrate 12:00:00 AM EDT ORAL active [facility]) apixaban 5 MG Oral Tablet Apixaban (ELIQUIS) 5 MG TABS tablet Apixaban (ELIQUIS) 5 MG TABS tablet 01/31/2021 12:00:00 AM EDT 5 mg Oral active Paroxysmal atrial fibrillation Take 1 tablet (5 mg total) by mouth 2 (t wo) times a day [facility] Paroxysmal atrial fibrillation Methylprednisolone 4 MG Oral Tablet Methylprednisolone 12/25 12:00:00 AM EDT active MEDENT ([facility], ) Cyclobenzaprine hydrochloride 10 MG Oral Tablet cyclobenzaprine (FLEXERIL) 10 MG tablet cyclobenzaprine (FLEXERIL) 10 MG tablet 01/02/2021 12:00:00 AM EDT active [facility] Cyclobenzaprine hydrochloride 10 MG Oral Tablet Cyclobenzapr ine HCL 01/02/2021 12:00:00 AM EDT ORAL active M EDENT ([facility], ) Lisinopril 2.5 MG Oral Tablet lisinopril (PRINIVIL,ZES TRIL) 2.5 MG tablet lisinopril (PRINIVIL,ZESTRIL) 2.5 MG tablet 12/21/2020 12:00:00 AM EDT 2.5 mg Oral aborted Type 2 diabetes mellitus without complication, without long- term current use of insulinHypertension, unspecified type Take 1 tablet (2.5 mg total) by mouth daily [facility] Type 2 diabetes mellitus without complic ation, without long-term current use of insulin Hypertension, unspecified type apixaban 5 MG Oral Tablet Apixaban (ELIQUIS) 5 MG TABS tablet Apixaban (ELIQUIS) 5 MG TABS tablet 12/15/2020 12:00:00 AM EDT 5 mg Oral active Take 1 tablet (5 mg total) by mouth 2 (two) times a day [facility] Suprep Bowel Prep Kit Suprep [...] mouth 2 ( two) times a day [facility] Hypertension, unspecified type Paroxysmal atrial fibrillation Lisinopril 10 MG Oral Tablet lisinopril (PRINIVIL,ZEST RIL) 10 MG tablet lisinopril (PRINIVIL,ZESTRIL) 10 MG tablet 10/28/2020 12:00:00 AM EDT 5 mg Oral aborted Take 0.5 tablets (5 mg total) by mouth daily [facility] atorvastatin 20 MG Oral Tablet Atorvastatin Calcium 09/01/2020 1 2:00:00 AM EDT ORAL active MED[facility] ( [facility]) MAGNESIUM GLUCONATE 500 MG Oral Tablet Magnesium Gluconate 0 09/01/2020 12:00:00 AM EDT active [facility] Metformin hydrochloride 1000 MG Oral Tablet Metformin HCL 09/01/2020 12:00:00 AM EDT ORAL active [facility] ropinirole 4 MG Oral Tablet Ropinirole HCL 09/01/2020 12:00:00 AM EDT ORAL active MED[facility] ([facility]) atorvastatin 40 MG Oral Tablet atorvastatin (LIPITOR) 40 MG tablet atorvastatin (LIPITOR) 40 MG tablet 08/30/2020 12:00:00 AM EDT 40 mg Oral active Take 40 mg by mouth daily [facility] Magnesium Oxide 500 MG Oral Tablet Magnesium Oxide 500 MG TABS Magnesium Oxide 500 MG TABS 08/30/2020 12:00:00 AM EDT 1 {tbl} Oral activ e Take 1 tablet by mouth daily [facility] Metformin hydrochloride 1000 MG Oral Tab let metFORMIN (GLUCOPHAGE) 1000 MG tablet metFORMIN (GLUCOPHAGE) 1000 MG tablet 08/30/2020 12:00:00 AM EDT 1000 mg Oral active Take 1,000 mg by mouth 2 (two) times a day with meals [facility] ropinirole 4 MG Oral Tablet rOPINIRole (REQUIP) 4 MG t ablet rOPINIRole (REQUIP) 4 MG tablet 08/30/2020 12:00:00 AM EDT 4 mg Oral active Take 4 mg by mouth nightly [facility] Pravastatin Sodium 10 MG Oral Tablet pravastatin (PRAV ACHOL) 10 MG tablet pravastatin (PRAVACHOL) 10 MG tablet 01/13/2020 12:00:00 AM EDT 10 mg Oral aborted Hypertension, unspecified ty peParoxysmal atrial fibrillationHyperlipidemia, unspecified hyperlipidemia type Take 1 tablet (10 mg total) by mouth nightly [facility] Hypertension, unspecified type Paroxysmal atrial fibrillation Hyperlipidemia, unspecified hyperlipidem ia type Metoprolol Tartrate 25 MG Oral Tablet me toprolol tartrate (LOPRESSOR) 25 MG tablet metoprolol tartrate (LOPRESSOR) 25 MG tablet 12/16/2019 12:0 0:00 AM EDT 25 mg Oral aborted Take 1 tablet (2 5 mg total) by mouth 2 (two) times a day [facility] Lisinopril 10 MG Oral Tablet lisinopril (PRINIVIL,ZEST RIL) 10 MG tablet lisinopril (PRINIVIL,ZESTRIL) 10 MG tablet 11/12/2019 12:00:00 AM EDT 10 mg Oral aborted Take 10 mg by mouth daily [facility] Hydrochlorothiazide 25 MG Oral Tablet hy drochlorothiazide (HYDRODIURIL) 25 MG tablet hydrochlorothiazide (HYDRODIURIL) 25 MG tablet 020 12:00:00 AM EDT 12.5 mg Oral aborted Take 12.5 mg by mouth daily [facility] Metformin hydrochloride 500 MG Oral Tablet metFORMIN ( GLUCOPHAGE) 500 MG tablet metFORMIN (GLUCOPHAGE) 500 MG tablet 10/24/2019 12:00:00 AM EDT 500 m g Oral aborted Take 500 mg by mouth 4 (four ) times a day [facility] Insurance Providers Payer name Policy type / Coverage type Policy ID Covered green party ID Covered green party's relationship to lopez Policy Lopez Plan Information [place] [employer] Part B [id number] Family Dependent U [id number] [facility] [id number] Family Dependent U [id number] [facility] [id number] Family Dependent U [id number] [facility] [facility] [id number] Family Dependent U [id number] [place] [employer] Part B [id number] Family Dependent U [id number] [place] [employer] Part B [id number] Family Dependent U [id number] [place] [employer] Part B [id number] Family Dependent U [id number] BS [facility] Part B [id number] Family Dependent U [id number] BS [facility] Part B [id number] Family Dependent U [id number] MVP (pr) Commercial [id number] Self [id number] Stella (WC) Workers Compensation [id number] Self [id number] [facility] [id number] SP [id number] [facility] [id number] SP [id number] [employer] Commercial [id number] Self [employer] Commercial [id number] Self [id number] [place] [employer] Commercial [id number] Self [id number] [employer] [place] [employer] Commercial [id number] Self [employer] [id number] Deborah PYN [id number] [employer] [id number] [employer] B [id number] S PYN [id number] BS [place] Commercial [id number] Self P [id number] BS [place] Commercial [id number] Self P [id number] BS [place] Commercial [id number] Self P [id number] [employer] B [id number] S PYN [id number] [employer] [facility] O [id number] S [id number] [employer] PPO 302/307 [id number] SP [id number] [employer] Health Maintenance Organization (HMO) [id number] Self [id number] BC[employer] [place] 306/806 [id number] SP [id number] BS [place] Commercial [id number] Self P [id number] BCBS [place] PPO 302/307 [id number] SP [id number] BCBS [place] PPO 302/307 [id number] SP [id number] [employer] [place] 306/806 [id number] SP [id number] Problems, Conditions, and Diagnoses Code Display Name Description Problem Type Effective Dates Data Source(s) E11.9 Type 2 diabetes mellitus without complic ations Type 2 diabetes mellitus without complic Diagnosis 12/21/2020 09:25:05 AM EDT [facility] G47.33 Obstructive sleep apnea (adult) (pediatr ic) Obstructive sleep apnea (adult) (pediatr Diagnosis 12/21/2020 09:25:05 AM EDT [facility] I10 Essential (primary) hypertension Essential (primary) h ypertension Diagnosis 12/21/2020 09:25:05 AM EDT [facility] K21.9 Gastro-esophageal reflux disease without esophagitis Gastro-esophageal reflux disease without Diagnosis 12/21/2020 09:25:05 AM EDT [facility] F32.9 Major depressive disorder, single episod e, unspecified Major depressive disorder, single episod Diagnosis 12/21/2020 09:25:05 AM EDT [facility] F41.9 Anxiety disorder, unspecified Anxiety disorder, unspec ified Diagnosis 12/21/2020 09:25:05 AM EDT [facility] E78.5 Hyperlipidemia, unspecified Hyperlipidemia, unspecifie d Diagnosis 12/21/2020 09:25:05 AM EDT [facility] I48.0 Paroxysmal atrial fibrillation Paroxysmal atrial fibri llation Diagnosis 12/21/2020 09:25:05 AM EDT [facility] K74.60 Cirrhosis Cirrhosis [id number] 03/03/2021 12:00:00 AM ED T [facility] Surgeries/Procedures Procedure Description Date Indications Data Source(s) OFFICE OUTPATIENT VISIT 5 MINUTES 03/23/2021 12:00:00 AM EDT [facility] ([facility] OFFICE OUTPATIENT VISIT 25 MINUTES 03/08/2021 12:00:00 AM EDT MEDGIL ([facility]) OFFICE OUTPATIENT VISIT 25 MINUTES 03/03/2021 12:00:00 AM EDT MED[facility] ([facility]) OFFICE OUTPATIENT VISIT 25 MINUTES 02/28/2021 12:00:00 AM [facility] TROPONIN QUANTITATIVE <td>TROPONIN I</td><td>Routine</td><td>02/23/2021</td><td></td><td> </td> 02/23/2021 12:00:00 AM EDT [facility] BLOOD COUNT COMPLETE AUTO&AUTO DIFRNTL WBC COUNT <td>C BC AND DIFFERENTIAL</td><td>Routine</td><td>02/23/2021</td><td></td><td> </td> 02/23/2021 12:00:00 AM EDT [facility] THYROID STIMULATING HORMONE TSH <td>TSH</td><td>Routine</td><td>02/23/2021</td><td></td><td> </td> 02/23/2021 12:00:00 AM EDT [facility] HEPATIC FUNCTION PANEL <td>HEPATIC FUNCTION PANEL</td><td>Routine</td><td>02/23/2021</td><td></td><td> </td> 02/23/2021 12:00:00 AM EDT [facility] BASIC METABOLIC PANEL CALCIUM TOTAL <td>BASIC METABOLI C PANEL</td><td>Routine</td><td>02/23/2021</td><td></td><td> </td> 02/23/2021 12:00:00 AM [facility] ARTHROSCOPY SHOULDER DISTAL CLAVICULECTOMY 02/08/2021 12:00:00 AM EDCleo BARBA ([facility], ) SHOULDER SCOPE BONE SHAVING 02/08/2021 12:00:00 AM EDCleo BARBA ([facility], ) ARTHROSCOPY SHOULDER ROTATOR CUFF REPAIR 02/08/2021 12 :00:00 AM SHAYAN BARBA ([facility], ) ECG ROUTINE ECG W/LEAST 12 LDS W/I&R 01/31/2021 12:00: 00 AM EDCleo BARBA ([facility]) OFFICE OUTPATIENT VISIT 25 MINUTES 01/31/2021 12:00:00 AM EDCleo BARBA ([facility]) OFFICE OUTPATIENT VISIT 25 MINUTES 01/17/2021 12:00:00 AM EDCleo BARBA ([facility], ) OFFICE OUTPATIENT VISIT 15 MINUTES 12/20/2020 12:00:00 AM EDCleo BARBA ([facility], ) OFFICE OUTPATIENT VISIT 25 MINUTES 12/20/2020 12:00:00 AM EDCleo MEDGIL ([facility], ) Inject/Drain Arthrocentesis Major Joint/Bursa/Ganglion Cyst 12/15/2020 12:00:00 AM EDCleo BARBA ([facility]) OFFICE OUTPATIENT VISIT 25 MINUTES 12/15/2020 12:00:00 AM [facility] OFFICE OUTPATIENT VISIT 25 MINUTES 11/10/2020 12:00:00 AM EDT [facility] Colonoscopy Flexible Proximal To Splenic Flexure W/Biopsy Si ngle/ 11/09/2020 12:00:00 AM EDT [facility] Colonoscopy 11/09/2020 12:00:00 AM [facility] ECG ROUTINE ECG W/LEAST 12 LDS W/I&R <td>POCT AMB EKG</td><td>Routine</td><td>10/28/2020</td><td> Paroxysmal atrial fibrillation Hypertension, unspecified type</td><td></td> 10/28/2020 12:00:00 AM EDT Hypertension, unspecified typeParoxysmal atrial fibrillation [facility] Hypertension, unspecified type Paroxysmal atrial fibrillation OFFICE OUTPATIENT VISIT 15 MINUTES 10/07/2020 12:00:00 AM EDT [facility] OFFICE OUTPATIENT NEW 45 MINUTES 09/22/2020 [facility] Trans Care SRV W/I 14D Of DC, Comm W/I 2 Dys Med Rec 09/08/2020 12:00:[address] [facility] ([facility] ) Results ID Date Data Source [id number] 03/14/2021 11:38:00 PM EDT [facility] Name Value Range Interpretation Code Description Data Yuridia rce(s) Supporting Document(s) ABG Partial Pressure Co2 37.6 mmHg 35.0-45.0 MEDEN T ([facility]) ABG pH (Arterial) 7.449 units 7.350-7.450 [facility] ABG Partial Pressure O2 78.1 mmHg 75.0-100.0 MEDEN T ([facility]) ABG Hco3 25.5 meq/L 22.0-26.0 [facility] ABG Total Co2 26.6 meq/L 22.0-29.0 [facility] ([facility]) ABG Base Excess 1.6 [facility] ([facility]) ABG O2 Saturation 95.4 % 95.0-99.0 [facility] ([facility]) ABG Standard Hco3 25.9 meq/L 22.0-26.0 [facility] ([facility]) ID Date Data Source [id number] 03/14/2021 11:36:00 PM EDT [facility] ([facility]) Name Value Range Interpretation Code Description Data Yuridia rce(s) Supporting Document(s) Influenza A Amplification Laboratory test result [facility] ([facility]) Negative results do not preclude influen za or RSV virus infection and should not be used as the sole basis for treatment or other patient management decisions. Influenza B Amplification Laboratory test result [facility] ([facility]) Negative results do not preclude influen za or RSV virus infection and should not be used as the sole basis for treatment or other patient management decisions. RSV Amplification Laboratory test result [facility] ([facility]) Negative results do not preclude influen za or RSV virus infection and should not be used as the sole basis for treatment or other patient management decisions. Laboratory test finding (navigational concept) Laboratory test result [facility] ([facility]) A false negative result may occur [...] pathogens. DISCLAIMER: Testing was performed using the [employer] SARS-CoV-2 test. This test was developed and its performance characteristics determined by [employer]. This test has not been FDA cleared [...] or revoked sooner. ID Date Data Source [id number] 03/14/2021 11:36:00 PM [facility] Name Value Range Interpretation Code Description Data Yuridia rce(s) Supporting Document(s) SARS coronavirus 2 RNA [Presence] in Res piratory specimen by KANA with probe detection NEGATIVE [facility] This lab was ordered by [facility] a nd reported by [facility]. ID Date Data Source [id number] 03/14/2021 09:10:00 PM EDT [facility] Name Value Range Interpretation Code Description Data Yuridia rce(s) Supporting Document(s) Appearance, Urine RFX Laboratory test result [facility] Color, Urine RFX Laboratory test result [facility] PH,Urine RFX 5.0 units 5.0-9.0 [facility] Specific [place] Ur Auto RFX 1.029 1.002-1.035 [facility] ([facility]) Protein, Urine Auto RFX Laboratory test result [facility] Glucose, Urine (Ua) Auto RFX Laboratory test result [facility] Ketone, Urine Auto RFX Laboratory test result [facility] Nitrite, Urine Auto RFX Laboratory test result [facility] Urobilinogen, Urine Auto RFX 4.0 mg/dL 0.0-2.0 [facility] Bilirubin, Urine Auto RFX Laboratory test result [facility] ([facility]) WBC, Urine Auto RFX 5 /HPF 0-3 [facility] Blood, Urine Blood RFX Laboratory test result [facility] ([facility]) Leukocyte Esterase Ur Auto RFX Laboratory test result [facility] ([facility]) Squam Epithelial Cell Ur Aurfx 0 /HPF 0-6 [facility] RBC, Urine Auto RFX 0 /HPF 0-3 [facility] ([facility]) Bacteria, Urine Auto RFX Laboratory test result [facility] ([facility]) Hyaline Cast, Urine Auto RFX 0 /LPF 0-1 M EDENT ([facility]) Mucus, Urine RFX Laboratory test result [facility] ([facility]) ID Date Data Source [id number] 03/14/2021 09:10:00 PM EDT [facility] ([facility]) Name Value Range Interpretation Code Description Data Yuridia rce(s) Supporting Document(s) aPTT in Blood by Coagulation assay 37.8 s 25.9-37.0 [facility] ([facility]) ID Date Data Source [id number] 03/14/2021 09:10:00 PM EDT [facility] ([facility]) Name Value Range Interpretation Code Description Data Yuridia rce(s) Supporting Document(s) Prothrombin Time 14.5 s 12.7-14.5 [facility] Inr 1.09 [facility] THERAPUTIC HUMAN INR VALUES INDICATIONS NORMAL RANGES PROPHYLAXIS/TREATMENT OF: VENOUS THROMBOSIS 2.0-3.0 PULMONARY EMBOLISM 2.0-3.0 PREVENTION OF SYSTEMIC EMBOLISM FROM: TISSUE HEART VALVES 2.0-3.0 ACUTE MYOCARDIAL INFARCTION 2.0-3.0 VALVULAR HEART DISEASE 2.0-3.0 ATRIAL FIBRILLATION 2.0-3.0 MECHANICAL VALVES(HIGH RISK) 2.5-3.5 RECURRENT MYOCARDIAL INFARCTION 2.5-3.5 ID Date Data Source [id number] 03/14/2021 09:10:00 PM EDT [facility] ([facility]) Name Value Range Interpretation Code Description Data Yuridia rce(s) Supporting Document(s) White Blood Count 10.5 10 4.0-10.0 [facility] ([facility] [facility]) Red Blood Count 4.10 10 4.30-6.10 [facility] ([facility]) Hemoglobin 12.2 g/dL 13.5-17.5 [facility] ([facility]) Mean Corpuscular Hemoglobin 29.8 pg 27.0-33.0 [facility] ([facility]) Hematocrit 38.1 % 42.0-52.0 [facility] [facility] Mean Corpuscular Volume 92.9 fl 80.0-96.0 [facility] ([facility]) Platelet Count, Automated 188 10 150-450 [facility] ([facility]) Mean Corpuscular HGB Conc 32.0 g/dL 32.0-36.5 [facility] NT ([facility]) Red Cell Distribution Width 14.3 % 11.5-14.5 [facility] ([facility]) Henry % 11.4 % 2.0-8.0 [facility] ([place] [facility]) Lymph % 22.6 % 24.0-44.0 [facility] [facility] Neutrophils % 62.5 % 36.0-66.0 [facility] ([facility]) Baso % 1.0 % 0.0-1.0 [facility] ([place] [facility]) Eos % 2.1 % 0.0-3.0 [facility] [facility] Neutrophils # 6.6 10 1.5-8.5 [facility] ([facility]) Immature Granulocyte % 0.4 % 0-3.0 [facility] ([facility]) Nucleated Red Blood Cell % 0.0 % 0-0 [facility] ([facility]) Eos # 0.2 10 0.0-0.5 [facility] ([place] [facility]) Lymph # 2.4 10 1.5-5.0 [facility] [facility] Henry # 1.2 10 0.0-0.8 [facility] [facility] Baso # 0.1 10 0.0-0.2 [facility] [facility] ID Date Data Source [id number] 03/14/2021 09:10:00 PM EDT [facility] ([facility]) Name Value Range Interpretation Code Description Data Yuridia rce(s) Supporting Document(s) Lipoprotein lipase [Enzymatic activity/volume] in Serum or P lasma 411 U/L 73-393 [facility] ([facility]) Lactate [Mass/volume] in Serum or Plasma 0.9 mmol/L 0.4-2.0 [facility] ([facility]) Y/N query for Sepsis Lactate Rule: Y Ammonia [Mass/volume] in Blood 40 uMOL/L [facility] ([facility]) ID Date Data Source [id number] 03/14/2021 09:10:00 PM EDT [facility] ([facility]) Name Value Range Interpretation Code Description Data Yuridia rce(s) Supporting Document(s) Glucose, Fasting 91 mg/dL 70-100 [facility] ([facility]) Blood Urea Nitrogen 17 mg/dL 7-18 [facility] ([facility]) Creatinine For GFR 0.74 mg/dL 0.70-1.30 [facility] ([facility]) Glomerular Filtration Rate Laboratory test result [facility] ([facility]) <content>Units are mL/min/1.73 m2</content>
<content></content>
<content>Chronic Kidney Disease Staging per NKF:</content>
<content></content>
<content>Stage I & II GFR >=60 Normal to Mildly Decreased</content>
<content>Stage III GFR 30- 59 Moderately Decreased</content>
<content>Stage IV GFR 15-29 Severely Decreased</content>
<content>Stage V GFR <15 Very Little GFR Left</content>
<content>ESRD GFR <15 on PUBLICITY PERSON</content>
<content></content> Sodium Level 140 meq/L 136-145 [facility] ([facility]) Potassium Serum 3.9 meq/L 3.5-5.1 [facility] ([facility]) Carbon Dioxide Level 28 meq/L 21-32 [facility] ([facility]) Anion Gap 6 meq/L 8-16 [facility] ([place] [facility]) Chloride Level 106 meq/L 98-107 [facility] ([facility]) Calcium Level 9.3 mg/dL 8.5-10.1 [facility] ([facility]) ID Date Data Source [id number] 03/14/2021 09:10:00 PM EDT [facility] ([facility]) Name Value Range Interpretation Code Description Data Yuridia rce(s) Supporting Document(s) Ast/Sgot 21 U/L 7-37 [facility] ([facility]) Alkaline Phosphatase 70 U/L 45-117 [facility] ([facility]) Alt/SGPT 30 U/L 12-78 [facility] ([facility]) Bilirubin,Direct 0.4 mg/dL 0.0-0.2 [facility] ([facility]) Bilirubin,Total 1.0 mg/dL 0.2-1.0 [facility] ([facility]) Albumin 3.3 GM/DL 3.2-5.2 [facility] ([facility]) Total Protein 7.4 GM/DL 6.4-8.2 [facility] ([facility]) Albumin/Globulin Ratio 0.8 [facility] ([facility]) ID Date Data Source [id number] 03/14/2021 09:10:00 PM EDT [facility]) Name Value Range Interpretation Code Description Data [facility]) Supporting Document(s) CPK Creatine Phosphokinase 128 U/L 39-308 [facility] ([facility]) CK-MB Value Mass 2.8 ng/mL [facility]) MB/CK Relative Index 2.19 [facility] ([facility]) <content>DIAGNOSIS CRITERIA</content>
<content>MMB ng/ml Relative Index (RI)</content>
<content>NON-AMI < or = 5 N/A</content>
<content>ENRIQUEZ ZONE > 5 < or = 4</content>
<content>AMI > 5 > 4</content>
<content></content> Troponin I Laboratory [facility] [facility] <content>Troponin I Reference Interval f or Siemens Gilbert LOCI:</content>
<content></content>
<content>99th Percentile= 0.00-0.045 ng/ml</content>
<content></content>
<content>Risk Stratification:</content>
<content><= 0.10 ng/ml Decreased Risk for Adverse Clinical</content>
<content>Events.</content>
<content>0.10-1.50 ng/ml Increased Risk for Adverse Clinical</content>
<content>Events. Evaluation of additional</content>
<content>criterion and/or repeat testing in 2-6</content>
<content>hours is suggested to rule out myocardial</content>
<content>damage.</content>
<content>>= 1.50 ng/ml Indicative of Myocardial Injury.</content>
<content></content> ID Date Data Source [id number] 03/08/2021 11:38:00 AM EDT [facility] ([facility]) Name Value Range Interpretation Code Description Data Yuridia rce(s) Supporting Document(s) Creatinine 0.8 mg/dL 0.6-1.3 [facility] ([place] [facility]) Glucose [Mass/volume] in Serum or Plasma 108 mg/dL 74-99 [facility] ([facility]) 100-125 mg/dL PRE-DIABETES/FASTING >126 mg/dL DIABETES/FASTING Urea nitrogen [Mass/volume] in Serum or Plasma 18 mg/dL 7-18 [facility] ([facility]) Sodium [Moles/volume] in Serum or Plasma 136 meq/L 136-145 [facility] ([facility]) Chloride [Moles/volume] in Serum or Plasma 100 meq/L 98-107 [facility] ([facility]) Potassium [Moles/volume] in Serum or Plasma 4.3 meq/L 3.5-5.1 [facility] ([facility]) Calcium [Mass/volume] in Serum or Plasma 9.5 mg/dL 8.5-10.1 [facility] ([facility]) Carbon dioxide, total [Moles/volume] in Serum or Plasma 31 meq/L 21 -32 [facility] ([facility]) Glomerular filtration rate/1.73 sq M pre dicted among non-blacks [Volume Rate/Area] in Serum or Plasma by Creatinine-based formula (MDRD) Laboratory [facility] [facility] ) Glomerular filtration rate/1.73 sq M pre dicted among blacks [Volume Rate/Area] in Serum or Plasma by Creatinine-based formula (MDRD) Laboratory test [facility] ([facility]) <content>CHRONIC KIDNEY DISEASE STAGING PER NKF</content>
<content></content>
<content>STAGE I & II GFR >= 60 NORMAL TO MILDLY DECREASED</content>
<content>STAGE III GFR 30-59 MODERATELY DECREASED</content>
<content>STAGE IV GFR 15-29 SEVERELY DECREASED</content>
<content>STAGE V GFR <15 VERY LITTLE GFR LEFT</content>
<content>ESRD GFR <15 ON PUBLICITY PERSON</content>
<content></content> ID Date Data Source [id number] 03/08/2021 11:38:00 AM EDT [facility] ([facility]) Name Value Range Interpretation Code Description Data Yuridia rce(s) Supporting Document(s) Magnesium 1.9 mg/dL 1.8-2.4 [facility] [facility] ID Date Data Source [id number] 03/03/2021 12:14:00 PM EDT [facility]) Name Value Range Interpretation Code Description Data Yuridia rce(s) Supporting Document(s) Glucose [Mass/volume] in Serum or Plasma 175 mg/dL 74-99 [facility] ([facility]) 100-125 mg/dL PRE-DIABETES/FASTING >126 mg/dL DIABETES/FASTING Creatinine 0.7 mg/dL 0.6-1.3 [facility] Urea nitrogen [Mass/volume] in Serum or Plasma 21 mg/dL 7-18 [facility] ([facility]) Chloride [Moles/volume] in Serum or Plasma 104 meq/L 98-107 [facility] ([facility]) Potassium [Moles/volume] in Serum or Plasma 4.4 meq/L 3.5-5.1 [facility] ([facility]) Sodium [Moles/volume] in Serum or Plasma 140 meq/L 136-145 [facility] ([facility]) Calcium [Mass/volume] in Serum or Plasma 9.2 mg/dL 8.5-10.1 [facility] ([facility]) Glomerular filtration rate/1.73 sq M pre dicted among non-blacks [Volume Rate/Area] in Serum or Plasma by Creatinine-based formula (MDRD) Laboratory test result [facility] ([facility] ) Carbon dioxide, total [Moles/volume] in Serum or Plasma 31 meq/L 21 -32 [facility] Glomerular filtration rate/1.73 sq M pre dicted among blacks [Volume Rate/Area] in Serum or Plasma by Creatinine-based formula (MDRD) Laboratory test result [facility] ([facility]) <content>CHRONIC KIDNEY DISEASE STAGING PER NKF</content>
<content></content>
<content>STAGE I & II GFR >= 60 NORMAL TO MILDLY DECREASED</content>
<content>STAGE III GFR 30-59 MODERATELY DECREASED</content>
<content>STAGE IV GFR 15-29 SEVERELY DECREASED</content>
<content>STAGE V GFR <15 VERY LITTLE GFR LEFT</content>
<content>ESRD GFR <15 ON PUBLICITY PERSON</content>
<content></content> ID Date Data Source [id number] 03/03/2021 12:14:00 PM EDT [facility]) Name Value Range Interpretation Code Description Data Yuridia rce(s) Supporting Document(s) Magnesium 1.5 mg/dL 1.8-2.4 [facility] ([place] [facility]) ID Date Data Source [id number] 02/28/2021 11:23:00 AM EDT [facility] ([facility]) Name Value Range Interpretation Code Description Data Yuridia rce(s) Supporting Document(s) Ferritin [Mass/volume] in Serum or Plasma 33 ng/mL 26-388 [facility]) ID Date Data Source [id number] 02/28/2021 11:23:00 AM EDT [facility] ([facility]) Name Value Range Interpretation Code Description Data Yuridia rce(s) Supporting Document(s) Hepatitis B virus surface Ab [Presence] in Serum by Im maurice Laboratory test result [facility] ([facility] ) ID Date Data Source [id number] 02/28/2021 11:23:00 AM EDT [facility] ([facility]) Name Value Range Interpretation Code Description Data Yuridia rce(s) Supporting Document(s) Total Iron Binding Capacity 456 ug/dL 250-450 [place] [facility] ([facility]) Percent Saturation 11.4 % 19.7-50.0 [facility] ([facility]) Iron (Fe) 52 ug/dL 65-175 [facility] ([facility]) ID Date Data Source [id number] 02/28/2021 11:23:00 AM EDT [facility]) Name Value Range Interpretation Code Description Data Yuridia rce(s) Supporting Document(s) Ammonia [Mass/volume] in Blood 48 uMOL/L [facility] ([facility]) ID Date Data Source [id number] 02/28/2021 11:23:00 AM EDT [facility] ([facility]) Name Value Range Interpretation Code Description Data Yuridia rce(s) Supporting Document(s) Hepatitis B Surface Antigen Laboratory test result [facility] [facility] Hepatitis C Virus Kelly Index 0.1 INDEX [place] [facility] ([place] [facility]) Negative Not infected with HCV, unless recent infection is suspected or other evidence exists to indicate HCV infection. Hepatitis B Core Antibody Igm Laboratory test result [facility] ([facility]) Hepatitis A Antibody Igm Laboratory test result [facility]) ID Date Data Source [id number] 02/28/2021 11:23:00 AM EDT [facility] Name Value Range Interpretation Code Description Data Yuridia rce(s) Supporting Document(s) Inr 1.18 [facility] ([facility]) THERAPUTIC HUMAN INR VALUES INDICATIONS NORMAL RANGES PROPHYLAXIS/TREATMENT OF: VENOUS THROMBOSIS 2.0-3.0 PULMONARY EMBOLISM 2.0-3.0 PREVENTION OF SYSTEMIC EMBOLISM FROM: TISSUE HEART VALVES 2.0-3.0 ACUTE MYOCARDIAL INFARCTION 2.0-3.0 VALVULAR HEART DISEASE 2.0-3.0 ATRIAL FIBRILLATION 2.0-3.0 MECHANICAL VALVES(HIGH RISK) 2.5-3.5 RECURRENT MYOCARDIAL INFARCTION 2.5-3.5 Prothrombin Time 15.4 s 12.7-14.5 [facility]) ID Date Data Source [id number] 02/28/2021 11:21:00 AM EDT [facility] ([facility]) Name Value Range Interpretation Code Description Data Yuridia rce(s) Supporting Document(s) Hepatitis B virus surface Ab [Presence] in Serum by [facility] Laboratory test [facility] [facility] ID Date Data Source [id number] 02/28/2021 11:20:00 AM EDT [facility] ([facility]) Name Value Range Interpretation Code Description Data Yuridia rce(s) Supporting Document(s) Erythrocytes [#/volume] in Blood by Automated count 4.40 x10*6/UL 4.2 0-6.30 [facility] ([place] [facility]) Leukocytes [#/volume] in Blood by Automated count 9.2 x10*3/UL 4.1-10 .9 [facility] ([place] [facility] Hemoglobin [Mass/volume] in Blood 12.8 g/dL 12.0-18.0 [facility] ([place] [facility]) MCV 88.2 fL 80.0-97.0 [facility] ([facility]) Hematocrit [Volume Fraction] of Blood by Automated count 38.8 % 3 7.0-51.0 [facility] ([place] [facility] MCH 29.1 pg 26.0-32.0 [facility] ([facility]) MCHC 33.0 g/dL 31.0-38.0 [facility] ([facility]) Erythrocyte distribution width [Ratio] by Automated count 13.9 % 11.6-13.7 [facility] ([facility]) MPV 8.5 FL 7.8-11.0 [facility] ([facility]) Lymph % 20.5 % 10.0-58.5 [facility] ([facility]) Platelets [#/volume] in Blood by Automated count 236 x10*3/UL 140-440 [facility] ([facility]) Neut % 74.4 % 37.0-92.0 [facility] ([place] [facility]) Mid % 5.1 % 1.7-9.3 [facility] [facility] Lymph # 1.9 x10*3/UL 0.6-4.1 [facility] ([facility]) Mid # 0.4 x10*3/UL 0.1-0.6 [facility] ([facility]) Neut # 6.9 x10*3/UL 2.0-7.8 [facility] ([facility]) ID Date Data Source [id number] 02/28/2021 11:20:00 AM EDT [facility] ([facility]) Name Value Range Interpretation Code Description Data Yuridia rce(s) Supporting Document(s) Glucose [Mass/volume] in Serum or Plasma 111 mg/dL 74-99 [facility] ([facility]) 100-125 mg/dL PRE-DIABETES/FASTING >126 mg/dL DIABETES/FASTING Urea nitrogen [Mass/volume] in Serum or Plasma 18 mg/dL 7-18 [facility] ([facility]) Potassium [Moles/volume] in Serum or Plasma 4.0 meq/L 3.5-5.1 [facility] ([facility]) Creatinine 0.7 mg/dL 0.6-1.3 [facility] ([facility]) Sodium [Moles/volume] in Serum or Plasma 140 meq/L 136-145 [facility] ([facility]) Carbon dioxide, total [Moles/volume] in Serum or Plasma 29 meq/L 21 -32 [facility] ([facility]) Calcium [Mass/volume] in Serum or Plasma 9.5 mg/dL 8.5-10.1 [facility] ([facility]) Chloride [Moles/volume] in Serum or Plasma 103 meq/L 98-107 [facility] ([facility]) Alkaline phosphatase isoenzyme [Units/volume] in Serum or Pl asma 63 mg/dL 46-116 [facility] ([facility]) Aspartate aminotransferase [Enzymatic activity/volume] in Serum or Plasma 27 U/L 15-37 [facility] ([facility] ) Total Bilirubin 0.7 mg/dL 0.2-1.0 [facility] Albumin [Mass/volume] in Serum or Plasma 3.3 g/dL 3.4-5.0 [facility] ([place] [facility] Alanine aminotransferase [Enzymatic activity/volume] in Seru m or Plasma 30 U/L 12-78 [facility] [facility] Proteinase 3 Ab [Units/volume] in Serum 7.6 g/dL 6.4-8.2 [facility] ([place] [facility] Glomerular filtration rate/1.73 sq M pre dicted among blacks [Volume Rate/Area] in Serum or Plasma by Creatinine-based formula (MDRD) Laboratory test result [facility] ([place] [facility]) <content>CHRONIC KIDNEY DISEASE STAGING PER NKF</content>
<content></content>
<content>STAGE I & II GFR >= 60 NORMAL TO MILDLY DECREASED</content>
<content>STAGE III GFR 30-59 MODERATELY DECREASED</content>
<content>STAGE IV GFR 15-29 SEVERELY DECREASED</content>
<content>STAGE V GFR <15 VERY LITTLE GFR LEFT</content>
<content>ESRD GFR <15 ON PUBLICITY PERSON</content>
<content></content> Glomerular filtration rate/1.73 sq M pre dicted among non-blacks [Volume Rate/Area] in Serum or Plasma by Creatinine-based formula (MDRD) Laboratory test result [facility] ([place] [facility] A/G Ratio 0.77 CALC 1.00-1.90 [facility] ([facility]) ID Date Data Source [id number] 02/28/2021 11:20:[address] [facility] Name Value Range Interpretation Code Description Data Yuridia rce(s) Supporting Document(s) Urine Color Laboratory test result [facility] ([place] [facility]) Urine PH 6.0 units 5.0-9.0 [facility] ([facility]) Urine Appearance Laboratory test result [facility] ([place] [facility]) Specific gravity of Urine 1.020 1.005-1.030 [facility] ([facility]) Urine Protein Laboratory test result 0-0 [facility] ([place] [facility]) Urine Blood Laboratory test result [facility] ([place] [facility]) Urine Leukocytes Laboratory test result [facility] ([facility]) Glucose [Presence] in Urine [facility] Urine Ketone Laboratory test result [facility] ([place] [facility]) Urine Nitrite Laboratory test result [facility] ([place] [facility]) Urine Urobilinogen 0.2 mg/dL 0.2-1.0 [facility] ([facility]) Bilirubin.total [Mass/volume] in Serum or Plasma Laboratory test resu lt [facility]) ID Date Data Source [id number] 02/23/2021 09:02:[address] [facility] ([facility]) Name Value Range Interpretation Code Description Data Yuridia rce(s) Supporting Document(s) Laboratory test finding (navigational concept) 0.01 ng/mL 0.00-0.08 [facility] ([facility]) ID Date Data Source [id number] 02/23/2021 06:29:00 PM EDT [facility] Name Value Range Interpretation Code Description Data Yuridia rce(s) Supporting Document(s) Laboratory test finding (navigational concept) 0.00 ng/mL 0.00-0.08 [facility] ([facility]) ID Date Data Source [id number] 02/23/2021 04:20:00 PM EDT [facility] Name Value Range Interpretation Code Description Data Yuridia rce(s) Supporting Document(s) Influenza A Amplification Laboratory test result [facility] ([facility]) Negative results do not preclude influen za or RSV virus infection and should not be used as the sole basis for treatment or other patient management decisions. Influenza B Amplification Laboratory test result [facility] ([place] [facility] Negative results do not preclude influen za or RSV virus infection and should not be used as the sole basis for treatment or other patient management decisions. RSV Amplification Laboratory test result [facility] ([place] [facility] Negative results do not preclude influen za or RSV virus infection and should not be used as the sole basis for treatment or other patient management decisions. Laboratory test finding (navigational concept) Laboratory test result [facility] ([facility]) A false negative result may occur [...] pathogens. DISCLAIMER: Testing was performed using the [employer] SARS-CoV-2 test. This test was developed and its performance characteristics determined by [employer]. This test has not been FDA cleared [...] or revoked sooner. ID Date Data Source [id number] 02/23/2021 04:20:00 PM [facility] Name Value Range Interpretation Code Description Data Yuridia rce(s) Supporting Document(s) SARS coronavirus 2 RNA [Presence] in Res piratory specimen by KANA with probe detection NEGATIVE [facility] This lab was ordered by [facility] a nd reported by [facility]. ID Date Data Source [id number] 02/23/2021 04:12:00 PM EDT [facility] ([facility]) Name Value Range Interpretation Code Description Data Yuridia rce(s) Supporting Document(s) Hemoglobin 12.4 g/dL 13.5-17.5 [facility] White Blood Count 10.8 10 4.0-10.0 [facility] ([facility]) Red Blood Count 4.15 10 4.30-6.10 [facility] ([facility]) Hematocrit 38.4 % 42.0-52.0 [facility] ([facility]) Mean Corpuscular Volume 92.5 fl 80.0-96.0 [facility] ([facility]) Mean Corpuscular Hemoglobin 29.9 pg 27.0-33.0 [place] [facility] ([facility]) Red Cell Distribution Width 13.8 % 11.5-14.5 [facility] ([facility]) Mean Corpuscular HGB Conc 32.3 g/dL 32.0-36.5 [facility] ([facility]) Platelet Count, Automated 211 10 150-450 [facility] ([facility]) Neutrophils % 66.8 % 36.0-66.0 [facility] ([facility]) Lymph % 19.9 % 24.0-44.0 [facility] [facility]) Henry % 9.5 % 2.0-8.0 [facility] [facility] Eos % 2.3 % 0.0-3.0 [facility] [facility] Immature Granulocyte % 0.4 % 0-3.0 [facility] ([facility]) Baso % 1.1 % 0.0-1.0 [facility] [facility] Neutrophils # 7.2 10 1.5-8.5 [facility] ([facility]) Nucleated Red Blood Cell % 0.0 % 0-0 [facility] ([facility] [facility]) Lymph # 2.1 10 1.5-5.0 [facility] [facility]) Eos # 0.3 10 0.0-0.5 [facility] [facility] Henry # 1.0 10 0.0-0.8 [facility] [facility] Baso # 0.1 10 0.0-0.2 [facility] [facility] ID Date Data Source [id number] 02/23/2021 04:12:00 PM EDT [facility] ([facility]) Name Value Range Interpretation Code Description Data Yuridia rce(s) Supporting Document(s) CK-MB Value Mass 3.3 ng/mL [facility] ([facility]) CPK Creatine Phosphokinase 102 U/L 39-308 [facility] ([facility]) MB/CK Relative Index 3.24 [facility] ([facility]) <content>DIAGNOSIS CRITERIA</content>
<content>MMB ng/ml Relative Index (RI)</content>
<content>NON-AMI < or = 5 N/A</content>
<content>ENRIQUEZ ZONE > 5 < or = 4</content>
<content>AMI > 5 > 4</content>
<content></content> Troponin I Laboratory [facility] [facility] <content>Troponin I Reference Interval f or Siemens Gilbert LOCI:</content>
<content></content>
<content>99th Percentile= 0.00-0.045 ng/ml</content>
<content></content>
<content>Risk Stratification:</content>
<content><= 0.10 ng/ml Decreased Risk for Adverse Clinical</content>
<content>Events.</content>
<content>0.10-1.50 ng/ml Increased Risk for Adverse Clinical</content>
<content>Events. Evaluation of additional</content>
<content>criterion and/or repeat testing in 2-6</content>
<content>hours is suggested to rule out myocardial</content>
<content>damage.</content>
<content>>= 1.50 ng/ml Indicative of Myocardial Injury.</content>
<content></content> ID Date Data Source [id number] 02/23/2021 04:12:00 PM EDT [facility] ([facility]) Name Value Range Interpretation Code Description Data Yuridia rce(s) Supporting Document(s) Alt/SGPT 32 U/L 12-78 [facility] ([place] [facility] Alkaline Phosphatase 67 U/L 45-117 [facility] ([facility]) Ast/Sgot 24 U/L 7-37 [facility] ([facility]) Bilirubin,Total 0.9 mg/dL 0.2-1.0 [facility] ([facility]) Bilirubin,Direct 0.3 mg/dL 0.0-0.2 [facility] ([facility]) Total Protein 7.2 GM/DL 6.4-8.2 [facility] ([facility]) Albumin/Globulin Ratio 0.8 [facility] ([facility]) Albumin 3.1 GM/DL 3.2-5.2 [facility] [facility] ID Date Data Source [id number] 02/23/2021 04:12:00 PM EDT [facility] ([facility]) Name Value Range Interpretation Code Description Data Yuridia rce(s) Supporting Document(s) Lipoprotein lipase [Enzymatic activity/volume] in Serum or P lasma 249 U/L 73-393 [facility] ([facility]) Natriuretic peptide.B prohormone N-Terminal [Mass/volu me] in Serum or Plasma 303 pg/mL [facility] ([facility] ) Thyrotropin [Units/volume] in Serum or Plasma by Detec tion limit <= 0.05 mIU/L 1.080 uIU/ML 0.358-3.740 [facility] Thyroxine (T4) free [Mass/volume] in Serum or Plasma 1.07 ng/dL 0.76- 1.46 [facility]) ID Date Data Source [id number] 02/23/2021 04:11:00 PM EDT [facility] ([facility]) Name Value Range Interpretation Code Description Data Yuridia rce(s) Supporting Document(s) Laboratory test finding (navigational concept) 0.00 ng/mL 0.00-0.08 [facility] ([facility]) ID Date Data Source [id number] 02/23/2021 04:10:00 PM EDT [facility] ([facility]) Name Value Range Interpretation Code Description Data Yuridia rce(s) Supporting Document(s) Laboratory test finding (navigational concept) 145 mg/dL 70-105 [facility] ([facility]) Laboratory test finding (navigational concept) 37.0 % 38.0-51.0 [facility] ([facility]) Laboratory test finding (navigational concept) 138 meq/L 136-145 [facility] ([facility]) Laboratory test finding (navigational concept) 5.2 mg/dL 4.5-5.3 [facility] ([facility]) Laboratory test finding (navigational concept) 100 meq/L 98-109 [facility] ([facility]) Laboratory test finding (navigational concept) 4.3 meq/L 3.5-5.1 [facility] ([facility]) Laboratory test finding (navigational concept) 20 mg/dL 8-26 [facility] ([facility]) Laboratory test finding (navigational concept) 27.0 MM/L 23.0-27.0 [facility] ([facility]) Laboratory test finding (navigational concept) 0.8 mg/dL 0.6-1.3 [facility] ([facility]) ID Date Data Source [id number] 01/31/2021 02:23:00 PM EDT [facility] ([facility]) Name Value Range Interpretation Code Description Data Yuridia rce(s) Supporting Document(s) Glucose [Mass/volume] in Serum or Plasma 75 mg/dL 74-99 [facility] ([facility]) 100-125 mg/dL PRE-DIABETES/FASTING >126 mg/dL DIABETES/FASTING Sodium [Moles/volume] in Serum or Plasma 139 meq/L 136-145 [facility] ([facility]) Urea nitrogen [Mass/volume] in Serum or Plasma 14 mg/dL 7-18 [facility] ([facility]) Creatinine 0.7 mg/dL 0.6-1.3 [facility] [facility] Chloride [Moles/volume] in Serum or Plasma 103 meq/L 98-107 [facility] ([facility]) Carbon dioxide, total [Moles/volume] in Serum or Plasma 30 meq/L 21 -32 [facility] ([facility]) Potassium [Moles/volume] in Serum or Plasma 4.5 meq/L 3.5-5.1 [facility] ([facility]) Alkaline phosphatase isoenzyme [Units/volume] in Serum or Pl asma 63 mg/dL 46-116 [facility] ([facility]) Calcium [Mass/volume] in Serum or Plasma 9.5 mg/dL 8.5-10.1 [facility] ([facility]) Total Bilirubin 0.8 mg/dL 0.2-1.0 [facility]) Albumin [Mass/volume] in Serum or Plasma 3.4 g/dL 3.4-5.0 [facility] ([facility]) Alanine aminotransferase [Enzymatic activity/volume] in Seru m or Plasma 35 U/L 12-78 [facility] ([facility]) Aspartate aminotransferase [Enzymatic activity/volume] in Serum or Plasma 27 U/L 15-37 [facility] ([facility] ) Proteinase 3 Ab [Units/volume] in Serum 7.2 g/dL 6.4-8.2 [facility] ([facility]) Glomerular filtration rate/1.73 sq M pre dicted among non-blacks [Volume Rate/Area] in Serum or Plasma by Creatinine-based formula (MDRD) Laboratory test result [facility] ([facility] ) Glomerular filtration rate/1.73 sq M pre dicted among blacks [Volume Rate/Area] in Serum or Plasma by Creatinine-based formula (MDRD) Laboratory test [facility]) <content>CHRONIC KIDNEY DISEASE STAGING PER NKF</content>
<content></content>
<content>STAGE I & II GFR >= 60 NORMAL TO MILDLY DECREASED</content>
<content>STAGE III GFR 30-59 MODERATELY DECREASED</content>
<content>STAGE IV GFR 15-29 SEVERELY DECREASED</content>
<content>STAGE V GFR <15 VERY LITTLE GFR LEFT</content>
<content>ESRD GFR <15 ON PUBLICITY PERSON</content>
<content></content> A/G Ratio 0.89 CALC 1.00-1.90 [facility] ([facility]) ID Date Data Source [id number] 01/31/2021 02:23:00 PM EDT [facility]) Name Value Range Interpretation Code Description Data Yuridia rce(s) Supporting Document(s) Magnesium 1.6 mg/dL 1.8-2.4 [facility] ([facility]) ID Date Data Source [id number] 01/31/2021 02:23:00 PM EDT [facility] ([facility]) Name Value Range Interpretation Code Description Data Yuridia rce(s) Supporting Document(s) Hemoglobin A1c/Hemoglobin.total in Blood 6.9 % [facility] ([facility]) Lab Result Notes: Pre-Diabetes 5.7 - 6.4 % Diabetes = or > 6.5% Glucose mean value [Mass/volume] in Blood Estimated fr om glycated hemoglobin 151 mg/dL 60-110 [facility] ([facility] ) ID Date Data Source [id number] 01/31/2021 02:23:00 PM EDT [facility] Name Value Range Interpretation Code Description Data Yuridia rce(s) Supporting Document(s) Hemoglobin A1c/Hemoglobin.total in Blood Laboratory test result [facility] ([facility]) Magnesium, Serum Laboratory test result [facility] ([facility]) ID Date Data Source [id number] 11/10/2020 12:58:00 PM EDT [facility] Name Value Range Interpretation Code Description Data Yuridia rce(s) Supporting Document(s) Glucose [Mass/volume] in Serum or Plasma 104 mg/dL 74-99 [facility] ([facility]) 100-125 mg/dL PRE-DIABETES/FASTING >126 mg/dL DIABETES/FASTING Creatinine 0.7 mg/dL 0.6-1.3 [facility] [facility] Urea nitrogen [Mass/volume] in Serum or Plasma 14 mg/dL 7-18 [facility] ([facility]) Potassium [Moles/volume] in Serum or Plasma 4.5 meq/L 3.5-5.1 [facility] ([facility]) Sodium [Moles/volume] in Serum or Plasma 137 meq/L 136-145 [facility] ([facility]) Chloride [Moles/volume] in Serum or Plasma 103 meq/L 98-107 [facility] ([facility]) Carbon dioxide, total [Moles/volume] in Serum or Plasma 28 meq/L 21 -32 [facility] ([facility]) Alkaline phosphatase isoenzyme [Units/volume] in Serum or Pl asma 67 mg/dL 46-116 [facility] ([facility]) Calcium [Mass/volume] in Serum or Plasma 9.8 mg/dL 8.5-10.1 [facility] ([facility]) Aspartate aminotransferase [Enzymatic activity/volume] in Serum or Plasma 24 U/L 15-37 [facility] ([facility] ) Total Bilirubin 0.9 mg/dL 0.2-1.0 [facility] ([facility]) Alanine aminotransferase [Enzymatic activity/volume] in Seru m or Plasma 27 U/L 12-78 [facility] ([facility] [facility]) Albumin [Mass/volume] in Serum or Plasma 3.4 g/dL 3.4-5.0 [facility] ([facility]) A/G Ratio 0.85 CALC 1.00-1.90 [facility] ([place] [facility]) Glomerular filtration rate/1.73 sq M pre dicted among non-blacks [Volume Rate/Area] in Serum or Plasma by Creatinine-based formula (MDRD) Laboratory test result [facility] Proteinase 3 Ab [Units/volume] in Serum 7.4 g/dL 6.4-8.2 [facility] [facility] Glomerular filtration rate/1.73 sq M pre dicted among blacks [Volume Rate/Area] in Serum or Plasma by Creatinine-based formula (MDRD) Laboratory test result [facility] ([facility] [facility] <content>CHRONIC KIDNEY DISEASE STAGING PER NKF</content>
<content></content>
<content>STAGE I & II GFR >= 60 NORMAL TO MILDLY DECREASED</content>
<content>STAGE III GFR 30-59 MODERATELY DECREASED</content>
<content>STAGE IV GFR 15-29 SEVERELY DECREASED</content>
<content>STAGE V GFR <15 VERY LITTLE GFR LEFT</content>
<content>ESRD GFR <15 ON PUBLICITY PERSON</content>
<content></content> ID Date Data Source [id number] 11/10/2020 12:58:00 PM EDT [facility] ([facility]) Name Value Range Interpretation Code Description Data Yuridia rce(s) Supporting Document(s) Hemoglobin A1c/Hemoglobin.total in Blood 6.7 % [facility] ([facility] [facility] Lab Result Notes: Pre-Diabetes 5.7 - 6.4 % Diabetes = or > 6.5% Glucose mean value [Mass/volume] in Blood Estimated fr om glycated hemoglobin 146 mg/dL 60-110 [facility] ([facility] [facility] ID Date Data Source [id number] 11/10/2020 12:58:00 PM EDT [facility] Name Value Range Interpretation Code Description Data Yuridia rce(s) Supporting Document(s) Leukocytes [#/volume] in Blood by Automated count 9.0 x10*3/UL 4.1-10 .9 [facility] ([facility] [facility] Hemoglobin [Mass/volume] in Blood 14.4 g/dL 12.0-18.0 [facility] ([facility] [facility] Hematocrit [Volume Fraction] of Blood by Automated count 43.1 % 3 7.0-51.0 [facility] ([facility] [facility] Erythrocytes [#/volume] in Blood by Automated count 4.70 x10*6/UL 4.2 0-6.30 [facility] ([facility]) MCHC 33.5 g/dL 31.0-38.0 [facility] ([place] [facility]) MCH 30.7 pg 26.0-32.0 [facility] ([facility]) MCV 91.7 fL 80.0-97.0 [facility] ([place] [facility]) MPV 8.2 FL 7.8-11.0 [facility] ([facility]) Platelets [#/volume] in Blood by Automated count 237 x10*3/UL 140-440 [facility] ([facility] [facility] Erythrocyte distribution width [Ratio] by Automated count 12.9 % 11.6-13.7 [facility] ([facility]) Mid % 5.7 % 1.7-9.3 [facility] ([place] [facility]) Lymph % 20.4 % 10.0-58.5 [facility] ([place] [facility]) Neut % 73.9 % 37.0-92.0 [facility] [facility]) Lymph # 1.8 x10*3/UL 0.6-4.1 [facility] ([facility]) Neut # 6.6 x10*3/UL 2.0-7.8 [facility] ([facility]) Mid # 0.6 x10*3/UL 0.1-0.6 [facility] ([facility]) ID Date Data Source [id number] 11/10/2020 12:58:00 PM EDT [facility] ([facility]) Name Value Range Interpretation Code Description Data Yuridia rce(s) Supporting Document(s) Hemoglobin A1c/Hemoglobin.total in Blood Laboratory test [facility] [facility]) ID Date Data Source [id number] 11/09/2020 09:09:00 AM EDT [facility] Name Value Range Interpretation Code Description Data Yuridia rce(s) Supporting Document(s) Surgical pathology study Laboratory test result [facility] ) FINAL DIAGNOSIS Descending and rectum polyps, polypectomy: Hyperplastic poly, fragments. 11/10/2020 - 100 CLINICAL DIAGNOSIS History colon cancer 11/09/2020 - 1450 GROSS DIAGNOSIS Received in formalin labeled "biopsy descending colon/polyps rectum" and consists of fragments of tissue, 0.2 x 0.1 x 0.1 cm. All in one. -OA 11/09/2020 - 1450 Signed MEGHAN HOLT MD 11/10/2020 1001 ID Date Data Source [id number] 11/04/2020 09:55:00 AM EDT [facility] Name Value Range Interpretation Code Description Data Yuridia rce(s) Supporting Document(s) SARS-CoV-2 (COVID-19) RNA [Presence] in Respiratory specimen by KANA with probe detection Not Detected [facility] This lab was ordered by [facility] and reported by [employer]. ID Date Data Source [id number] 09/08/2020 11:14:00 AM EDT [facility] ([facility]) Name Value Range Interpretation Code Description Data Yuridia rce(s) Supporting Document(s) Glucose [Mass/volume] in Serum or Plasma 113 mg/dL 74-99 [facility] ([facility]) 100-125 mg/dL PRE-DIABETES/FASTING >126 mg/dL DIABETES/FASTING Urea nitrogen [Mass/volume] in Serum or Plasma 14 mg/dL 7-18 [facility] ([facility] [facility]) Creatinine 0.8 mg/dL 0.6-1.3 [facility] ([facility] Sodium [Moles/volume] in Serum or Plasma 135 meq/L 136-145 [facility] ([facility] [facility]) Potassium [Moles/volume] in Serum or Plasma 3.9 meq/L 3.5-5.1 [facility] ([facility] [facility]) Carbon dioxide, total [Moles/volume] in Serum or Plasma 30 meq/L 21 -32 [facility] ([facility] [facility]) Chloride [Moles/volume] in Serum or Plasma 99 meq/L 98-107 [facility] ([facility] [facility]) Calcium [Mass/volume] in Serum or Plasma 9.7 mg/dL 8.5-10.1 [facility] ([facility] [facility]) Total Bilirubin 1.1 mg/dL 0.2-1.0 [facility] ([facility]) Aspartate aminotransferase [Enzymatic activity/volume] in Serum or Plasma 42 U/L 15-37 [facility] ([facility] [facility] ) Alkaline phosphatase isoenzyme [Units/volume] in Serum or Pl asma 76 mg/dL 46-116 [facility] ([facility] [facility]) Albumin [Mass/volume] in Serum or Plasma 3.3 g/dL 3.4-5.0 [facility] ([facility] [facility]) Alanine aminotransferase [Enzymatic activity/volume] in Seru m or Plasma 59 U/L 12-78 [facility] ([facility] [facility]) Proteinase 3 Ab [Units/volume] in Serum 7.7 g/dL 6.4-8.2 [facility] ([facility] [facility]) A/G Ratio 0.75 CALC 1.00-1.90 [facility] ([place] [facility]) Glomerular filtration rate/1.73 sq M pre dicted among non-blacks [Volume Rate/Area] in Serum or Plasma by Creatinine-based formula (MDRD) Laboratory test result [facility] ([facility] [facility] Glomerular filtration rate/1.73 sq M pre dicted among blacks [Volume Rate/Area] in Serum or Plasma by Creatinine-based formula (MDRD) Laboratory test result [facility] ([facility] [facility]) <content>CHRONIC KIDNEY DISEASE STAGING PER NKF</content>
<content></content>
<content>STAGE I & II GFR >= 60 NORMAL TO MILDLY DECREASED</content>
<content>STAGE III GFR 30-59 MODERATELY DECREASED</content>
<content>STAGE IV GFR 15-29 SEVERELY DECREASED</content>
<content>STAGE V GFR <15 VERY LITTLE GFR LEFT</content>
<content>ESRD GFR <15 ON PUBLICITY PERSON</content>
<content></content> ID Date Data Source [id number] 09/08/2020 11:14:[address] [facility] ([facility]) Name Value Range Interpretation Code Description Data Yuridia rce(s) Supporting Document(s) Hemoglobin A1c/Hemoglobin.total in Blood 6.7 % [facility] ([facility] [facility] Lab Result Notes: Pre-Diabetes 5.7 - 6.4 % Diabetes = or > 6.5% Glucose mean value [Mass/volume] in Blood Estimated fr om glycated hemoglobin 146 mg/dL 60-110 [facility] ([facility] [facility] ID Date Data Source [id number] 09/08/2020 11:14:00 AM EDT [facility] Name Value Range Interpretation Code Description Data Yuridia rce(s) Supporting Document(s) Erythrocytes [#/volume] in Blood by Automated count 4.88 x10*6/UL 4.2 0-6.30 [facility] ([facility]) Leukocytes [#/volume] in Blood by Automated count 10.3 x10*3/UL 4.1-[address] [facility] ([facility]) MCV 94.7 fL 80.0-97.0 [facility] [facility]) Hemoglobin [Mass/volume] in Blood 15.9 g/dL 12.0-18.0 [facility] ([facility]) Hematocrit [Volume Fraction] of Blood by Automated count 46.2 % 3 7.0-51.0 [facility] MCHC 34.4 g/dL 31.0-38.0 [facility] ([place] [facility] MCH 32.6 pg 26.0-32.0 [facility] ([facility]) Platelets [#/volume] in Blood by Automated count 269 x10*3/UL 140-440 [facility] ([place] [facility] Erythrocyte distribution width [Ratio] by Automated count 12.2 % 11.6-13.7 [facility] ([facility]) MPV 8.5 FL 7.8-11.0 [facility] ([place] [facility] Lymph % 22.1 % 10.0-58.5 [facility] ([facility]) Mid % 5.8 % 1.7-9.3 [facility] ([facility]) Neut % 72.1 % 37.0-92.0 [facility] ([facility]) Mid # 0.7 x10*3/UL 0.1-0.6 [facility] ([facility]) Lymph # 2.2 x10*3/UL 0.6-4.1 [facility] ([facility]) Neut # 7.4 x10*3/UL 2.0-7.8 [facility] ([facility]) ID Date Data Source [id number] 08/23/2020 10:19:00 AM EDT [facility] Name Value Range Interpretation Code Description Data Yuridia rce(s) Supporting Document(s) Influenza A Amplification Laboratory test result [facility] ([facility]) Negative results do not preclude influen za or RSV virus infection and should not be used as the sole basis for treatment or other patient management decisions. Influenza B Amplification Laboratory test result [facility] ([facility]) Negative results do not preclude influen za or RSV virus infection and should not be used as the sole basis for treatment or other patient management decisions. RSV Amplification Laboratory test result [facility] ([facility]) Negative results do not preclude influen za or RSV virus infection and should not be used as the sole basis for treatment or other patient management decisions. Laboratory test finding (navigational concept) Laboratory test result [facility] ([facility]) A false negative result may occur [...] pathogens. DISCLAIMER: Testing was performed using the [employer] SARS-CoV-2 test. This test was developed and its performance characteristics determined by [employer]. This test has not been FDA cleared [...] or revoked sooner. ID Date Data Source [id number] 08/23/2020 10:19:00 AM EDT [facility] Name Value Range Interpretation Code Description Data Yuridia rce(s) Supporting Document(s) SARS coronavirus 2 RNA [Presence] in Res piratory specimen by KANA with probe detection NEGATIVE [facility] This lab was ordered by [facility] a nd reported by [facility]. ID Date Data Source [id number] 08/23/2020 08:27:00 AM EDT [facility] ([facility]) Name Value Range Interpretation Code Description Data Yuridia rce(s) Supporting Document(s) Laboratory test finding (navigational concept) 0.01 ng/mL 0.00-0.08 [facility] ([facility]) ID Date Data Source [id number] 08/23/2020 08:25:00 AM EDT [facility] ([facility]) Name Value Range Interpretation Code Description Data Yuridia rce(s) Supporting Document(s) Laboratory test finding (navigational concept) 45.0 % 38.0-51.0 [facility] ([facility]) Laboratory test finding (navigational concept) 139 meq/L 136-145 [facility] ([facility]) Laboratory test finding (navigational concept) 158 mg/dL 70-105 [facility] ([facility]) Laboratory test finding (navigational concept) 4.4 meq/L 3.5-5.1 [facility] ([facility]) Laboratory test finding (navigational concept) 4.6 mg/dL 4.5-5.3 [facility] ([facility]) Laboratory test finding (navigational concept) 101 meq/L 98-109 [facility] ([facility]) Laboratory test finding (navigational concept) 31.0 MM/L 23.0-27.0 [facility] ([facility]) Laboratory test finding (navigational concept) 10 mg/dL 8-26 [facility] ([facility]) Laboratory test finding (navigational concept) 0.6 mg/dL 0.6-1.3 [facility] ([facility]) ID Date Data Source [id number] 08/23/2020 08:20:00 AM EDT [facility] ([facility]) Name Value Range Interpretation Code Description Data Yuridia rce(s) Supporting Document(s) Magnesium [Moles/volume] in Serum or Plasma 1.6 mg/dL 1.8-2.4 [facility] [facility] Natriuretic peptide.B prohormone N-Terminal [Mass/volu me] in Serum or Plasma 285 pg/mL [facility] [facility] Thyrotropin [Units/volume] in Serum or Plasma by Detec tion limit <= 0.05 mIU/L 0.774 uIU/ML 0.358-3.740 [facility] ) ID Date Data Source [id number] 08/23/2020 08:20:00 AM EDT [facility] Name Value Range Interpretation Code Description Data Yuridia rce(s) Supporting Document(s) Ast/Sgot 42 U/L 7-37 [facility] [facility]) Alt/SGPT 33 U/L 12-78 [facility] [facility]) Alkaline Phosphatase 90 U/L 45-117 [facility] ([facility]) Bilirubin,Total 1.3 mg/dL 0.2-1.0 [facility] ([facility]) Bilirubin,Direct 0.6 mg/dL 0.0-0.2 [facility] ([facility]) Total Protein 7.7 GM/DL 6.4-8.2 [facility] ([facility]) Albumin 3.1 GM/DL 3.2-5.2 [facility] [facility] Albumin/Globulin Ratio 0.7 [facility] ([facility]) ID Date Data Source [id number] 08/23/2020 08:20:00 AM EDT [facility] Name Value Range Interpretation Code Description Data Yuridia rce(s) Supporting Document(s) Prothrombin Time 16.2 s 12.5-14.3 [facility] ([facility]) Inr 1.27 [facility] ([place] [facility] THERAPUTIC HUMAN INR VALUES INDICATIONS NORMAL RANGES PROPHYLAXIS/TREATMENT OF: VENOUS THROMBOSIS 2.0-3.0 PULMONARY EMBOLISM 2.0-3.0 PREVENTION OF SYSTEMIC EMBOLISM FROM: TISSUE HEART VALVES 2.0-3.0 ACUTE MYOCARDIAL INFARCTION 2.0-3.0 VALVULAR HEART DISEASE 2.0-3.0 ATRIAL FIBRILLATION 2.0-3.0 MECHANICAL VALVES(HIGH RISK) 2.5-3.5 RECURRENT MYOCARDIAL INFARCTION 2.5-3.5 ID Date Data Source [id number] 08/23/2020 08:20:[address] [facility] ([facility]) Name Value Range Interpretation Code Description Data Yuridia rce(s) Supporting Document(s) White Blood Count 7.8 10 4.0-10.0 [facility] ([facility]) Hematocrit 42.5 % 42.0-52.0 [facility] [facility] Hemoglobin 14.3 g/dL 13.5-17.5 [facility] [facility] Red Blood Count 4.28 10 4.30-6.10 [facility] ([facility]) Mean Corpuscular Volume 99.3 fl 80.0-96.0 [facility] ([facility]) Mean Corpuscular Hemoglobin 33.4 pg 27.0-33.0 [facility] ([facility]) Red Cell Distribution Width 12.3 % 11.5-14.5 [facility] ([facility]) Mean Corpuscular HGB Conc 33.6 g/dL 32.0-36.5 [facility] ([facility]) Platelet Count, Automated 164 10 150-450 [facility] ([facility]) Lymph % 23.1 % 24.0-44.0 [facility] [facility]) Neutrophils % 62.1 % 36.0-66.0 [facility] ([facility]) Henry % 10.3 % 2.0-8.0 [facility] [facility]) Baso % 1.4 % 0.0-1.0 [facility] [facility] Eos % 2.6 % 0.0-3.0 [facility] [facility]) Immature Granulocyte % 0.5 % 0-3.0 [facility] [facility]) Neutrophils # 4.9 10 1.5-8.5 MEDENT ([facility]) Nucleated Red Blood Cell % 0.0 % 0-0 MED ENT ([facility]) Lymph # 1.8 10 1.5-5.0 [facility]) Eos # 0.2 10 0.0-0.5 [facility]) Baso # 0.1 10 0.0-0.2 [facility]) Henry # 0.8 10 0.0-0.8 [facility] ID Date Data Source [id number] 07/04/2020 12:00:00 AM EST [facility] Name Value Range Interpretation Code Description Data Yuridia rce(s) Supporting Document(s) SARS-CoV2 Rapid Antigen Negative [facility] This lab was ordered by [facility] and reported by [facility]. Procedure Social History Code Duration Value Status Description Data Source(s ) Smoking 03/23/2021 12:00:00 AM EDT Patient has never smoked co mpleted Patient has never smoked MEDENT ([facility]) Alcohol intake 03/03/2021 12:00:00 AM EDT Ex-drinker (finding) comp leted Ex- drinker (finding) [facility] Alcohol intake 12/21/2020 12:00:00 AM EDT Ex-drinker (finding) comp leted Ex- drinker (finding) [facility] Alcohol intake 10/28/2020 12:00:00 AM EDT Current drinker of al cohol (finding) completed Current drinker of alcohol (finding) [facility] Vital Signs ID Date Data Source UNK Name Value Range Interpretation Code Description Data Source(s) Body temperature 97.2 [degF] 97.2 [degF] MEDGIL ([facility], ) Body weight 266.00 [lb_av] 266.00 [lb_av] SARKIS Gallo ([facility]) Body mass index (BMI) [Ratio] 38.2 kg/m2 38.2 k g/m2 FREDA ([facility]) Systolic blood pressure 100 mm[Hg] 100 mm[Hg] DENISSE ([facility]) Diastolic blood pressure 72 mm[Hg] 72 mm[Hg] FREDA ([facility]) Heart rate 82 /min 82 /min FREDA ([facility]) Body height 70 [in_i] 70 [in_i] [facility] 5'10" Systolic blood pressure 110 mm[Hg] 110 mm[Hg] [facility] Diastolic blood pressure 68 mm[Hg] 68 mm[Hg] [facility] Heart rate 71 /min 71 /min [facility] Body height 172.7 cm 172.7 cm [facility] Body weight 118.389 kg 118.389 kg [facility] Body mass index (BMI) [Ratio] 39.68 kg/m2 39.68 kg/m2 [facility] Oxygen saturation in Arterial blood by Pulse oximetry 95 % 95 % [facility] Systolic blood pressure 102 mm[Hg] 102 mm[Hg] DENISSE ([facility]) Diastolic blood pressure 82 mm[Hg] 82 mm[Hg] FREDA ([facility]) Heart rate 58 /min 58 /min MEDENT ([facility]) Body height 70 [in_i] 70 [in_i] MEDENT ([facility]) 5'10" Body weight 262.00 [lb_av] 262.00 [lb_av] MEDEN T ([facility]) Oxygen saturation in Arterial blood by Pulse oximetry 99 % 99 % [facility] RM Air Body mass index (BMI) [Ratio] 37.6 kg/m2 37.6 k g/m2 MEDENT ([facility]) Body weight 266.00 [lb_av] 266.00 [lb_av] MEDEN T ([facility]) Systolic blood pressure 102 mm[Hg] 102 mm[Hg] [facility] ([facility]) Diastolic blood pressure 80 mm[Hg] 80 mm[Hg] [facility] Heart rate 81 /min 81 /min [facility]) Body height 70 [in_i] 70 [in_i] [facility]) 5'10" Oxygen saturation in Arterial blood by Pulse oximetry 99 % 99 % [facility]) RM Air Body mass index (BMI) [Ratio] 38.2 kg/m2 38.2 k g/m2 [facility] ([facility]) Body mass index (BMI) [Ratio] 35.7 kg/m2 35.7 k g/m2 [facility]) Diastolic blood pressure 94 mm[Hg] 94 mm[Hg] [facility] ([facility]) Systolic blood pressure 118 mm[Hg] 118 mm[Hg] [facility] Heart rate 73 /min 73 /min [facility]) Body height 70 [in_i] 70 [in_i] [facility]) 5'10" Body weight 249.00 [lb_av] 249.00 [lb_av] MEDEN T ([facility]) Oxygen saturation in Arterial blood by Pulse oximetry 98 % 98 % [facility] ([facility]) Body temperature 97.9 [degF] 97.9 [degF] MEDENT ([facility], ) Systolic blood pressure 100 mm[Hg] 100 mm[Hg] [facility] Diastolic blood pressure 70 mm[Hg] 70 mm[Hg] [facility] Heart rate 76 /min 76 /min [facility] Body height 172.7 cm 172.7 cm [facility] Body weight 109.861 kg 109.861 kg [facility] Body mass index (BMI) [Ratio] 36.83 kg/m2 36.83 kg/m2 [facility] Oxygen saturation in Arterial blood by Pulse oximetry 96 % 96 % [facility] Body temperature 98.7 [degF] 98.7 [degF] [facility] ([facility], ) Systolic blood pressure 118 mm[Hg] 118 mm[Hg] EDENT ([facility]) Diastolic blood pressure 62 mm[Hg] 62 mm[Hg] MEDENT ([facility]) Heart rate 70 /min 70 /min [facility]) Body height 70 [in_i] 70 [in_i] MEDENT ([facility]) 5'10" Body weight 240.00 [lb_av] 240.00 [lb_av] MEDEN T ([facility]) Body mass index (BMI) [Ratio] 34.4 kg/m2 34.4 k g/m2 MEDENT ([facility]) Systolic blood pressure 110 mm[Hg] 110 mm[Hg] [facility] Diastolic blood pressure 80 mm[Hg] 80 mm[Hg] [facility] Heart rate 101 /min 101 /min [facility] Respiratory rate 18 /min 18 /min [facility] Body weight 111.585 kg 111.585 kg [facility] Body mass index (BMI) [Ratio] 37.40 kg/m2 37.40 kg/m2 [facility] Oxygen saturation in Arterial blood by Pulse oximetry 97 % 97 % [facility] Systolic blood pressure 135 mm[Hg] 135 mm[Hg] EDENT ([facility]) Diastolic blood pressure 93 mm[Hg] 93 mm[Hg] [facility] ([facility]) Oxygen saturation in Arterial blood by Pulse oximetry 97 % 97 % [facility] ([facility] Respiratory rate 18 /min 18 /min [facility] ( [facility]) Heart rate 91 /min 91 /min [facility] ([facility]) Oxygen saturation in Arterial blood by Pulse oximetry 97 % 97 % [facility] ([facility]) [place] body weight 166 [lb_av] 166 [lb_av] MEDEN T ([facility]) Body weight 113.[address] [facility] ([facility]) Body temperature 97.2 [degF] 97.2 [degF] [facility] ([facility]) Body height 70 [in_i] 70 [in_i] [facility] ([facility]) 5'10" Body weight 250.00 [lb_av] 250.00 [lb_av] MEDEN T ([facility]) Body mass index (BMI) [Ratio] 35.9 kg/m2 35.9 k g/m2 [facility] ([facility]) [place] body weight 166 [lb_av] 166 [lb_av] MEDEN T ([facility]) Body weight 113.[address] [facility] ([facility]) Body surface area Derived from formula 2.[address] [facility] ([facility]) Respiratory rate 18 /min 18 /min [facility] ( [facility]) Body temperature 97.2 [degF] 97.2 [degF] [facility] ([facility]) Body height 70 [in_i] 70 [in_i] [facility] ([facility]) 5'10" Body weight 250.00 [lb_av] 250.00 [lb_av] MEDEN T ([facility]) Body mass index (BMI) [Ratio] 35.9 kg/m2 35.9 k g/m2 [facility] ([facility]) Body surface area Derived from formula 2.[address] [facility] ([facility]) Systolic blood pressure 113 mm[Hg] 113 mm[Hg] [facility] Respiratory rate 17 /min 17 /min [facility] ( [facility]) Body height 70 [in_i] 70 [in_i] [facility] 5'10" Body weight 250.75 [lb_av] 250.75 [lb_av] MEDEN T ([facility]) Body mass index (BMI) [Ratio] 36.0 kg/m2 36.0 k g/m2 [facility] ([facility]) Diastolic blood pressure 73 mm[Hg] 73 mm[Hg] [facility] ([facility]) Heart rate 84 /min 84 /min [facility] ([facility]) Oxygen saturation in Arterial blood by Pulse oximetry 100 % 100 % [facility] ([facility]) Body temperature 95.4 [degF] 95.4 [degF] [facility] ([facility]) [place] body weight 166 [lb_av] 166 [lb_av] MEDEN T ([facility]) Body weight 113.[address] [facility] ([facility]) Body surface area Derived from formula 2.[address] [facility] ([facility]) Systolic blood pressure 122 mm[Hg] 122 mm[Hg] M EDENT ([facility]) Diastolic blood pressure 86 mm[Hg] 86 mm[Hg] [facility] Body height 70 [in_i] 70 [in_i] [facility] 5'10" Body weight 248.50 [lb_av] 248.50 [lb_av] MEDEN T ([facility]) Body mass index (BMI) [Ratio] 35.7 kg/m2 35.7 k g/m2 [facility] ([facility]) [place] body weight 166 [lb_av] 166 [lb_av] MEDEN T ([facility], ) Body weight 112.[address] [facility] ([facility], ) Body surface area Derived from formula 2.[address] [facility] ([facility], ) Systolic blood pressure 118 mm[Hg] 118 mm[Hg] M EDENT ([facility]) Diastolic blood pressure 62 mm[Hg] 62 mm[Hg] [facility] Body weight 250.00 [lb_av] 250.00 [lb_av] MEDEN T ([facility]) Body mass index (BMI) [Ratio] 35.9 kg/m2 35.9 k g/m2 [facility] ([facility]) Heart rate 68 /min 68 /min [facility] ([facility]) Body height 70 [in_i] 70 [in_i] [facility] 5'10" Patient Treatment Plan of Care Planned Activity Planned Date Details Description Data Source (s) Lactulose 667 MG/ML Oral Solution 03/02/2021 12:00:00 AM EDT [facility] Furosemide 40 MG Oral Tablet 02/28/2021 12:00:00 AM EDT [facility] Metoprolol Tartrate 25 MG Oral Tablet 02/24/2021 12:00:00 AM EDT [facility] atorvastatin 20 MG Oral Tablet 02/24/2021 12:00:00 AM EDT [facility] apixaban 5 MG Oral Tablet 01/31/2021 12:00:00 AM EDT [facility] Cyclobenzaprine hydrochloride 10 MG Oral Tablet 01/02/2021 12:00:00 AM EDT [facility] Lisinopril 2.5 MG Oral Tablet 12/21/2020 12:00:00 AM EDT [facility] apixaban 5 MG Oral Tablet 12/15/2020 12:00:00 AM EDT [facility] Metoprolol Tartrate 50 MG Oral Tablet 10/28/2020 12:00:00 AM EDT [facility] Lisinopril 10 MG Oral Tablet 10/28/2020 12:00:00 AM EDT [facility] ropinirole 4 MG Oral Tablet 08/30/2020 12:00:00 AM EDT [facility] Metformin hydrochloride 1000 MG Oral Tablet 08/30/2020 12:00:00 AM EDT [facility] Magnesium Oxide 500 MG Oral Tablet 08/30/2020 12:00:00 AM EDT [facility] atorvastatin 40 MG Oral Tablet 08/30/2020 12:00:00 AM EDT [facility] Pravastatin Sodium 10 MG Oral Tablet 01/13/2020 12:00:00 AM EDT [facility] Metoprolol Tartrate 25 MG Oral Tablet 12/16/2019 12:00:00 AM EDT [facility] Hydrochlorothiazide 25 MG Oral Tablet 11/12/2019 12:00:00 AM EDT [facility] Lisinopril 10 MG Oral Tablet 11/12/2019 12:00:00 AM EDT [facility] Metformin hydrochloride 500 MG Oral Tablet 10/24/2019 12:00:00 AM E DT [facility]
[2021-04-07 17:19] VITALS: BP 121/62
--- NOTE | 2021-04-08 07:04 | ECGEPIP ---
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
== END 2021-04-07 17:20 | disposition home or self-care (01) ==
LOC: M ED 13:19
DX: R09.02 Hypoxemia (principal); I10 Essential (primary) hypertension; E11.9 Type 2 diabetes mellitus without complications; I48.91 Unspecified atrial fibrillation; F33.9 Major depressive disorder, recurrent, unspecified; F41.9 Anxiety disorder, unspecified; Z85.038 Personal history of other malignant neoplasm of large intestine; Z79.899 Other long term (current) drug therapy; Z79.84 Long term (current) use of oral hypoglycemic drugs; Z79.01 Long term (current) use of anticoagulants

== ENCOUNTER → 2021-04-25 | Outpatient (RCR) | payer BC ==
[~2021-04-25] MED LIST changes: +BACT800T5 PO; +COLA100C5 PO; +NAPR-849 PO; +OXYC-517 PO; +SENN18TA PO
== END ==
LOC: M PT 03-27 10:03
PROVIDERS: ATTEND Orthopaedic Surgery Sports Medicine
DX: Z98.890 Other specified postprocedural states (principal); M25.511 Pain in right shoulder

== ENCOUNTER 2021-04-28 15:00 | Outpatient (RCR) | payer BC ==
[~2021-04-28 15:00] MED LIST changes: -BACT800T5 PO; -COLA100C5 PO; -NAPR-849 PO; -OXYC-517 PO; -SENN18TA PO
== END 2021-05-26 ==
LOC: M OUTALCOH 15:00
PROVIDERS: ATTEND Psychiatry & Neurology Psychiatry
DX: F10.20 Alcohol dependence, uncomplicated (principal)

== ENCOUNTER 2021-05-11 15:05 | Outpatient (RCR) | payer BC | END 2021-05-26 | LOC: M PT 15:05 | PROVIDERS: ATTEND Orthopaedic Surgery Sports Medicine | DX: Z47.89 Encounter for other orthopedic aftercare (principal) ==

== ENCOUNTER → 2021-05-18 | Outpatient (CLI) | payer BC ==
--- NOTE | 2021-05-18 14:35 | REP ---
INDICATION: BILAT KNEE PAIN, SHOULDER ORTHOPEDIC AFTERCARE. COMPARISON: None. TECHNIQUE: Internal rotation, external rotation, axillary, neutral and Y-view of the right shoulder FINDINGS: Mild osteopenia. Cortical irregularity and spurring at the acromioclavicular joint noted. The subacromial space measures to approximately 9 mm on external rotation view. No periarticular calcifications or loose bodies are identified. The glenohumeral joint is essentially age-appropriate. There is no evidence for acute fracture or dislocation. IMPRESSION: Mild osteopenia and mild degenerative changes primarily involving the acromioclavicular joint. <Electronically signed by Deangelo Powers > 05/18/21 [id number]
--- NOTE | 2021-05-18 14:59 | REP ---
INDICATION: BILAT KNEE PAIN, SHOULDER ORTHOPEDIC AFTERCARE. COMPARISON: None. TECHNIQUE: AP, lateral, and sunrise views of the right and left knee FINDINGS: Early advanced symmetric tricompartmental osteoarthritic degenerative changes include primarily medial and patellofemoral joint space narrowing, subchondral sclerosis, cortical irregularity and osteophyte formation. Small bilateral suprapatellar effusions (left greater than right) cannot be excluded as well. No evidence for acute fracture or dislocation. IMPRESSION: Early advanced tricompartmental osteoarthritic degenerative changes. <Electronically signed by Deangelo Powers > 05/18/21 [id number]
== END ==
LOC: M SOG 13:41
PROVIDERS: ATTEND Orthopaedic Surgery Sports Medicine
DX: Z48.89 Encounter for other specified surgical aftercare (principal); M25.561 Pain in right knee; M25.562 Pain in left knee; M85.811 Other specified disorders of bone density and structure, right shoulder; M17.0 Bilateral primary osteoarthritis of knee

== ENCOUNTER 2021-06-01 09:15 | Outpatient (RCR) | payer BC ==
[2021-06-27] MEDS ORDERED: NAPR-849 PO (13:18)
[2021-06-27] MEDS ORDERED: COLA100C5 PO (13:18)
[2021-06-27] MEDS ORDERED: FERR1TAB8 PO (13:18)
[2021-06-27] MEDS ORDERED: SENN18TA PO (13:18)
[2021-06-27] MEDS ORDERED: OXYC-517 PO (13:18)
== END 2021-06-26 ==
LOC: M PT 09:15
PROVIDERS: ATTEND Orthopaedic Surgery Sports Medicine
DX: S46.011D Strain of muscle(s) and tendon(s) of the rotator cuff of right shoulder, subsequent encounter (principal)

== ENCOUNTER → 2021-06-07 | Outpatient (REF) | payer BC ==
[2021-06-07 17:38] LABS: FERRITIN 60 NG/ML (26-388); FOLATE > 24.0 NG/ML; IRON (FE) 69 UG/DL (65-175); PERCENT SATURATION 16.2 % (19.7-50.0); TOTAL IRON BINDING CAPACITY 425 UG/DL (250-450); VITAMIN B12 LEVEL 1365 PG/ML
== END ==
LOC: M LAB REF 16:10
PROVIDERS: ATTEND Family Medicine
DX: K70.30 Alcoholic cirrhosis of liver without ascites (principal); D64.9 Anemia, unspecified

== ENCOUNTER 2021-06-12 13:38 | Outpatient (RCR) | payer BC ==
[2021-06-27] MEDS ORDERED: NAPR-849 PO (13:18)
[2021-06-27] MEDS ORDERED: SENN18TA PO (13:18)
[2021-06-27] MEDS ORDERED: OXYC-517 PO (13:18)
[2021-06-27] MEDS ORDERED: FERR1TAB8 PO (13:18)
[2021-06-27] MEDS ORDERED: COLA100C5 PO (13:18)
== END 2021-06-26 ==
LOC: M PT 13:38
PROVIDERS: ATTEND Orthopaedic Surgery Adult Reconstructive Orthopaedic Surgery
DX: M17.0 Bilateral primary osteoarthritis of knee (principal)

== ENCOUNTER → 2021-06-13 | Outpatient (CLI) | payer BC | LOC: M RAD 17:22 | PROVIDERS: ATTEND Orthopaedic Surgery Adult Reconstructive Orthopaedic Surgery | DX: M17.0 Bilateral primary osteoarthritis of knee (principal) ==

== ENCOUNTER → 2021-06-21 | Outpatient (CLI) | payer BC | LOC: M LABSMTC 10:31 | PROVIDERS: ATTEND Anesthesiology | DX: Z01.812 Encounter for preprocedural laboratory examination (principal); Z11.52 Encounter for screening for COVID-19 ==

== ENCOUNTER 2021-06-26 06:10 | Inpatient (IN) | payer BC ==
[2021-06-26] VITALS (7 sets, daily range): BP systolic 114–129; BP diastolic 74–83
[~2021-06-26] VITALS: Ht 175.3 cm; Wt 114.9 kg
[~2021-06-26 06:10] MED LIST changes: +ACETAMINOPHEN 500 MG TAB PO ONE; +LR 1,000 ML IV ONE; +NAPROXEN 250 MG TAB PO ONE; +NS 1,000 ML IV ONE; +PREGABALIN 25 MG CAP (LYRICA) PO ONE; +ROPIVA 125MG/EPINEPH 0.25MG/CLONID 40MCG/KETOR 15MG IN NS 50ML SYRINGE PA ONE; +ceFAZolin SOD 2 GM in IV 1 EA IV ONE; +dexameTHASONE 4 MG/ML 1ML VIAL (J1100 PER 1MG) IV ONE
[2021-06-26] MEDS ORDERED: TRANEXAMIC ACID 100 MG/ML 10ML VIAL As Ordered ONE ×2 (07:09→10:02)
[2021-06-26] MEDS ORDERED: ONDANSETRON 4MG/2ML VIAL As Ordered ONE ×2 (07:27→08:33)
[2021-06-26] MEDS ORDERED: propofoL 200 MG/20 ML VIAL As Ordered ONE (07:27)
[2021-06-26] MEDS ORDERED: ROCURONIUM BROMIDE 50 MG/5 ML VIAL As Ordered ONE ×2 (07:27→09:31)
[2021-06-26] MEDS ORDERED: MIDAZOLAM INJ 2MG/2ML VIAL (J2250 PER 1MG) As Ordered ONE (07:27)
[2021-06-26] MEDS ORDERED: LIDOCAINE 2% 100MG/5ML SDV (FOR ANES.) As Ordered ONE (07:27)
[2021-06-26] MEDS ORDERED: dexameTHASONE 4 MG/ML 1ML VIAL (J1100 PER 1MG) As Ordered ONE (07:27)
[2021-06-26] MEDS ORDERED: fentaNYL 250 MCG/5 ML INJECTION (J3010) As Ordered ONE (07:27)
[2021-06-26] MEDS ORDERED: ePHEDrine SULFATE 25 MG/5 ML(5MG/ML) SYRINGE As Ordered ONE (08:08)
[2021-06-26] MEDS ORDERED: PHENYLephrine 500MCG 5ML (100MCG/ML) SYRINGE As Ordered ONE (08:08)
[2021-06-26] MEDS ORDERED: PHENYLEPHRINE 10MG/ML 1ML VIAL (J2370 PER 1) As Ordered ONE (08:11)
[2021-06-26] MEDS ORDERED: SUGAMMADEX SODIUM 500 MG/5 ML VIAL (BRIDION) As Ordered ONE (08:33)
[2021-06-26] MEDS: SERTRALINE HCL 50 MG TAB PO SCH (09:00)
[2021-06-26] MEDS ORDERED: OMEPRAZOLE 20MG CAP PO SCH (09:00)
[2021-06-26] MEDS ORDERED: METOCLOPRAMIDE INJ 10MG/2ML VIAL (J2765 PER 1) As Ordered ONE (09:11)
[2021-06-26] MEDS ORDERED: HYDROmorphone HCL 2MG/ML 1ML VIAL As Ordered ONE (09:19)
[2021-06-26] MEDS ORDERED: ESMOLOL INJ 100MG/10ML VIAL As Ordered ONE (09:28)
[2021-06-26] MEDS ORDERED: fentaNYL 100 MCG/2 ML INJECTION (J3010) IV PRN (10:55)
[2021-06-26] MEDS ORDERED: PERCOCET 5MG/325MG TAB PO PRN (10:55)
[2021-06-26] MEDS ORDERED: ONDANSETRON 4MG/2ML VIAL IV PRN ×2 (10:55→11:30)
[2021-06-26] MEDS ORDERED: LR 1,000 ML IV SCH ×2 (10:55→11:35)
[2021-06-26] MEDS ORDERED: IBUPROFEN 400MG TAB PO PRN (11:15)
[2021-06-26] MEDS ORDERED: DEXTROSE 50% 50 ML SYRINGE IV PRN (11:20)
[2021-06-26] MEDS ORDERED: GLUCAGON INJ 1MG VIAL SC PRN (11:20)
[2021-06-26] MEDS ORDERED: GLUCOSE 4GM CHEW TABLET PO PRN (11:20)
[2021-06-26] MEDS ORDERED: traMADol 50 MG TAB PO PRN (11:30)
[2021-06-26] MEDS ORDERED: SENNA 8.6 MG TAB (SENOKOT) PO PRN (11:30)
[2021-06-26] MEDS ORDERED: oxyCODONE 5MG TAB PO PRN (11:30)
[2021-06-26 11:43] LABS: HEMATOCRIT 44.8 % (42.0-52.0); HEMOGLOBIN 14.9 g/dl (13.5-17.5); MEAN CORPUSCULAR HEMOGLOBIN 29.8 pg (27.0-33.0); MEAN CORPUSCULAR HGB CONC 33.3 g/dl (32.0-36.5); MEAN CORPUSCULAR VOLUME 89.6 fl (80.0-96.0); PLATELET COUNT, AUTOMATED 177 10^3/uL (150-450); WHITE BLOOD COUNT 10.7 10^3/uL (4.0-10.0)
[2021-06-26 11:54] LABS: INR 1.05; PROTHROMBIN TIME 14.1 SECONDS (12.7-14.5)
[2021-06-26 11:55] LABS: PARTIAL THROMBOPLASTIN TIME 35.4 SECONDS (25.9-37.0)
[2021-06-26 12:10] LABS: ALBUMIN 3.4 GM/DL (3.2-5.2); ALT/SGPT 29 U/L (12-78); BILIRUBIN,TOTAL 0.7 MG/DL (0.2-1.0); BLOOD UREA NITROGEN 23 MG/DL (7-18); CALCIUM LEVEL 9.3 MG/DL (8.5-10.1); CARBON DIOXIDE LEVEL 28 MEQ/L (21-32); CHLORIDE LEVEL 105 MEQ/L (98-107); CREATININE FOR GFR 0.81 MG/DL (0.70-1.30); GLOMERULAR FILTRATION RATE > 60.0 (>56); GLUCOSE, FASTING 176 MG/DL (70-100); POTASSIUM SERUM 3.9 MEQ/L (3.5-5.1); SODIUM LEVEL 139 MEQ/L (136-145); TOTAL PROTEIN 7.4 GM/DL (6.4-8.2)
[2021-06-26] MEDS: ACETAMINOPHEN TAB 650MG DOSE (2X325MG) PO SCH ×2 (13:00→17:29)
[2021-06-26] MEDS: ATORVASTATIN 20 MG TAB PO SCH (14:53)
[2021-06-26] MEDS: FUROSEMIDE 40 MG TAB PO SCH (14:53)
[2021-06-26] MEDS: SPIRONOLACTONE 12.5MG PER 1/2 TABLET PO SCH (14:53)
[2021-06-26] MEDS: HumaLOG INSULIN (NovoLOG) PER UNIT SC SCH ×2 (14:54→17:28)
[2021-06-26] MEDS: ceFAZolin SOD 2 GM in IV 1 EA IV SCH (17:27)
[2021-06-26] MEDS: LACTULOSE 20 GM/30 ML SYRUP UD PO SCH ×2 (17:27→20:35)
[2021-06-26] MEDS: NAPROXEN 250 MG TAB PO SCH (17:28)
[2021-06-26] MEDS: DOCUSATE SODIUM 100MG CAPSULE PO SCH (20:32)
[2021-06-26] MEDS: MAGNESIUM OXIDE 400MG TAB (MAG-OX) PO SCH (20:33)
[2021-06-26] MEDS: METOPROLOL TART 25 MG TABLET PO SCH (20:33)
[2021-06-26] MEDS: APIXABAN 5 MG TAB (ELIQUIS) PO SCH (20:35)
[2021-06-26] MEDS: METOPROLOL TART 50 MG TAB PO SCH (20:35)
[2021-06-26] MEDS ORDERED: metFORMIN (GLUCOPHAGE) 1000 MG TABLET PO SCH (21:00)
[2021-06-26] MEDS ORDERED: rOPINIRole 2MG TAB PO SCH (21:00)
[2021-06-26] MEDS ORDERED: HumaLOG INSULIN (NovoLOG) PER UNIT SC SCH (21:00)
[2021-06-27] MEDS: ceFAZolin SOD 2 GM in IV 1 EA IV SCH (01:38)
[2021-06-27] MEDS: ACETAMINOPHEN TAB 650MG DOSE (2X325MG) PO SCH ×3 (01:38→12:38)
[2021-06-27 01:54] VITALS: BP 108/70
[2021-06-27 05:42] VITALS: BP 124/81
[2021-06-27] MEDS: NAPROXEN 250 MG TAB PO SCH (06:24)
[2021-06-27 07:20] LABS: HEMATOCRIT 40.2 % (42.0-52.0); HEMOGLOBIN 13.4 g/dl (13.5-17.5); MEAN CORPUSCULAR HEMOGLOBIN 30.1 pg (27.0-33.0); MEAN CORPUSCULAR HGB CONC 33.3 g/dl (32.0-36.5); MEAN CORPUSCULAR VOLUME 90.3 fl (80.0-96.0); PLATELET COUNT, AUTOMATED 146 10^3/uL (150-450); RED BLOOD COUNT 4.45 10^6/uL (4.30-6.10); WHITE BLOOD COUNT 18.4 10^3/uL (4.0-10.0)
[2021-06-27 07:37] LABS: ALT/SGPT 24 U/L (12-78); BILIRUBIN,TOTAL 0.5 MG/DL (0.2-1.0); BLOOD UREA NITROGEN 21 MG/DL (7-18); CALCIUM LEVEL 8.7 MG/DL (8.5-10.1); CARBON DIOXIDE LEVEL 26 MEQ/L (21-32); CHLORIDE LEVEL 107 MEQ/L (98-107); CREATININE FOR GFR 0.67 MG/DL (0.70-1.30); GLOMERULAR FILTRATION RATE > 60.0 (>56); GLUCOSE, FASTING 145 MG/DL (70-100); POTASSIUM SERUM 4.3 MEQ/L (3.5-5.1); SODIUM LEVEL 139 MEQ/L (136-145); TOTAL PROTEIN 6.9 GM/DL (6.4-8.2)
[2021-06-27 08:08] VITALS: BP 124/81
[2021-06-27] MEDS: DOCUSATE SODIUM 100MG CAPSULE PO SCH (08:08)
[2021-06-27] MEDS: METOPROLOL TART 50 MG TAB PO SCH (08:08)
[2021-06-27] MEDS: MAGNESIUM OXIDE 400MG TAB (MAG-OX) PO SCH (08:08)
[2021-06-27] MEDS: SPIRONOLACTONE 12.5MG PER 1/2 TABLET PO SCH (08:08)
[2021-06-27] MEDS: SERTRALINE HCL 50 MG TAB PO SCH (08:08)
[2021-06-27] MEDS: ATORVASTATIN 20 MG TAB PO SCH (08:08)
[2021-06-27] MEDS: APIXABAN 5 MG TAB (ELIQUIS) PO SCH (08:08)
[2021-06-27] MEDS: FUROSEMIDE 40 MG TAB PO SCH (08:09)
[2021-06-27] MEDS: METOPROLOL TART 25 MG TABLET PO SCH (08:09)
[2021-06-27] MEDS: LACTULOSE 20 GM/30 ML SYRUP UD PO SCH ×2 (08:10→15:02)
[2021-06-27] MEDS: HumaLOG INSULIN (NovoLOG) PER UNIT SC SCH ×2 (08:10→12:38)
[2021-06-27] MEDS: oxyCODONE 5MG TAB PO PRN ×2 (08:11→15:02)
[2021-06-27] MEDS ORDERED: FERROUS SULFATE 325MG TAB PO SCH (09:00)
[2021-06-27] MEDS ORDERED: OMEPRAZOLE 20MG CAP PO SCH (09:00)
[2021-06-27] MEDS ORDERED: ASCORBIC ACID 500 MG TAB PO SCH (09:00)
[2021-06-27] MEDS ORDERED: FERR1TAB8 PO (13:18)
[2021-06-27] MEDS ORDERED: OXYC-517 PO (13:18)
[2021-06-27] MEDS ORDERED: SENN18TA PO (13:18)
[2021-06-27] MEDS ORDERED: NAPR-849 PO (13:18)
[2021-06-27] MEDS ORDERED: COLA100C5 PO (13:18)
[2021-06-27 13:44] VITALS: BP 126/76
== END 2021-06-27 17:10 | disposition home or self-care (01) | DRG 302 ==
LOC: M SDC 06:10 → M MS5PR 10:44 → M SDC 10:44 → M MS5PR 12:40
PROVIDERS: ADMIT Internal Medicine; ATTEND Orthopaedic Surgery Adult Reconstructive Orthopaedic Surgery
PROC: 0SRD0JA Replacement of Left Knee Joint with Synthetic Substitute, Uncemented, Open Approach (ICD-10-PCS; principal; 2021-06-26 07:30)
DX: M17.0 Bilateral primary osteoarthritis of knee (principal); I10 Essential (primary) hypertension; E11.9 Type 2 diabetes mellitus without complications; K70.30 Alcoholic cirrhosis of liver without ascites; G47.33 Obstructive sleep apnea (adult) (pediatric); J30.9 Allergic rhinitis, unspecified; F34.1 Dysthymic disorder; K21.9 Gastro-esophageal reflux disease without esophagitis; F10.11 Alcohol abuse, in remission; Z91.19 Patient's noncompliance with other medical treatment and regimen; G25.81 Restless legs syndrome; I49.5 Sick sinus syndrome; Z95.0 Presence of cardiac pacemaker; Z90.49 Acquired absence of other specified parts of digestive tract; Z98.1 Arthrodesis status; Z79.01 Long term (current) use of anticoagulants; I48.91 Unspecified atrial fibrillation; D64.9 Anemia, unspecified; Z85.038 Personal history of other malignant neoplasm of large intestine; E83.42 Hypomagnesemia; F41.9 Anxiety disorder, unspecified; F32.A Depression, unspecified; Z79.84 Long term (current) use of oral hypoglycemic drugs; Z79.899 Other long term (current) drug therapy

== ENCOUNTER → 2021-06-28 | Outpatient (CLI) | payer BC ==
[~2021-06-28] MED LIST changes: -ACETAMINOPHEN 500 MG TAB PO ONE; +COLA100C5 PO; -LR 1,000 ML IV ONE; +NAPR-849 PO; -NAPROXEN 250 MG TAB PO ONE; -NS 1,000 ML IV ONE; +OXYC-517 PO; -PREGABALIN 25 MG CAP (LYRICA) PO ONE; -ROPIVA 125MG/EPINEPH 0.25MG/CLONID 40MCG/KETOR 15MG IN NS 50ML SYRINGE PA ONE; +SENN18TA PO; -ceFAZolin SOD 2 GM in IV 1 EA IV ONE; -dexameTHASONE 4 MG/ML 1ML VIAL (J1100 PER 1MG) IV ONE
[2021-06-28 17:08] LABS: BASO # 0.1 10^3/uL (0.0-0.2); BASO % 0.6 % (0.0-1.0); EOS # 0.1 10^3/uL (0.0-0.5); EOS % 0.8 % (0.0-3.0); HEMATOCRIT 42.9 % (42.0-52.0); HEMOGLOBIN 13.8 g/dl (13.5-17.5); LYMPH # 2.2 10^3/uL (1.5-5.0); LYMPH % 15.4 % (24.0-44.0); MEAN CORPUSCULAR HEMOGLOBIN 29.9 pg (27.0-33.0); MEAN CORPUSCULAR HGB CONC 32.2 g/dl (32.0-36.5); MEAN CORPUSCULAR VOLUME 92.9 fl (80.0-96.0); NEUTROPHILS # 9.9 10^3/uL (1.5-8.5); NEUTROPHILS % 69.7 % (36.0-66.0); PLATELET COUNT, AUTOMATED 198 10^3/uL (150-450); RED BLOOD COUNT 4.62 10^6/uL (4.30-6.10); WHITE BLOOD COUNT 14.2 10^3/uL (4.0-10.0)
[2021-06-28 17:56] LABS: MONO # 1.9 10^3/uL (0.0-0.8); MONO % 13.1 % (2.0-8.0)
== END ==
LOC: M PLALAB 12:49
PROVIDERS: ATTEND Orthopaedic Surgery Adult Reconstructive Orthopaedic Surgery
DX: Z96.652 Presence of left artificial knee joint (principal)

== ENCOUNTER → 2021-07-06 | Outpatient (REF) | payer BC | LOC: M LAB REF 12:07 | PROVIDERS: ATTEND Family Medicine | DX: K74.60 Unspecified cirrhosis of liver (principal) ==

== ENCOUNTER → 2021-07-10 | Outpatient (CLI) | payer BC | LOC: M SOG 09:43 | PROVIDERS: ATTEND Orthopaedic Surgery Adult Reconstructive Orthopaedic Surgery | DX: M25.562 Pain in left knee (principal); Z96.652 Presence of left artificial knee joint ==

== ENCOUNTER 2021-07-18 12:09 | Observation (INO) | payer BC ==
[~2021-07-18] VITALS: Ht 175.3 cm; Wt 112.0 kg
[~2021-07-18 12:09] MED LIST changes: +BUPIVACAINE/EPIN 0.5% 30 ML VIAL As Ordered ONE
[2021-07-18] MEDS ORDERED: ceFAZolin 2 GM/D5W 50 ML IV BAG (J0690 PER 500MG) As Ordered ONE (16:14)
[2021-07-18] MEDS ORDERED: TRANEXAMIC ACID 100 MG/ML 10ML VIAL As Ordered ONE (16:14)
[2021-07-18] MEDS ORDERED: MIDAZOLAM INJ 2MG/2ML VIAL (J2250 PER 1MG) As Ordered ONE (16:15)
[2021-07-18] MEDS ORDERED: dexameTHASONE 4 MG/ML 1ML VIAL (J1100 PER 1MG) As Ordered ONE (16:15)
[2021-07-18] MEDS ORDERED: fentaNYL 100 MCG/2 ML INJECTION As Ordered ONE ×2 (16:15→18:53)
[2021-07-18] MEDS ORDERED: propofoL 200 MG/20 ML VIAL As Ordered ONE (16:15)
[2021-07-18] MEDS ORDERED: LIDOCAINE 2% 100MG/5ML SDV (FOR ANES.) As Ordered ONE (16:15)
[2021-07-18] MEDS ORDERED: ROCURONIUM BROMIDE 50 MG/5 ML VIAL As Ordered ONE (16:15)
[2021-07-18] MEDS ORDERED: PHENYLephrine 500MCG 5ML (100MCG/ML) SYRINGE As Ordered ONE ×2 (16:15→17:11)
[2021-07-18] MEDS ORDERED: ONDANSETRON 4MG/2ML VIAL As Ordered ONE (16:15)
[2021-07-18] MEDS ORDERED: HYDROmorphone HCL 2MG/ML 1ML VIAL As Ordered ONE (16:42)
[2021-07-18] MEDS ORDERED: SUGAMMADEX SODIUM 500 MG/5 ML VIAL (BRIDION) As Ordered ONE (16:44)
[2021-07-18] MEDS ORDERED: KETOROLAC 60MG 2ML VIAL As Ordered ONE (18:17)
[2021-07-18] MEDS ORDERED: KETOROLAC 30 MG/ML 1ML VIAL IV PRN (18:19)
[2021-07-18] MEDS: fentaNYL 100 MCG/2 ML INJECTION IV PRN ×4 (18:53→19:35)
[2021-07-18] MEDS ORDERED: ONDANSETRON 4MG/2ML VIAL IV PRN ×2 (18:55→20:15)
[2021-07-18] MEDS ORDERED: LR 1,000 ML IV SCH ×3 (18:55→20:10)
[2021-07-18] MEDS ORDERED: MORPHINE 2 MG/ML 1ML VIAL (J2270) IV PRN (19:00)
[2021-07-18] MEDS ORDERED: DEXTROSE 50% 50 ML SYRINGE IV PRN (19:00)
[2021-07-18] MEDS ORDERED: GLUCAGON INJ 1MG VIAL SC PRN (19:00)
[2021-07-18] MEDS ORDERED: HYDROMORPHONE HCL 0.5 MG/ 0.5 ML SYRINGE (J1170 PER 1) IV PRN (19:00)
[2021-07-18] MEDS ORDERED: GLUCOSE 4GM CHEW TABLET PO PRN (19:00)
[2021-07-18] MEDS: PERCOCET 5MG/325MG TAB PO PRN ×2 (19:11→19:42)
[2021-07-18 20:15] VITALS: BP 136/96
[2021-07-18] MEDS ORDERED: traMADol 50 MG TAB PO PRN (20:15)
[2021-07-18] MEDS ORDERED: SENNA 8.6 MG TAB (SENOKOT) PO PRN (20:15)
[2021-07-18] MEDS ORDERED: oxyCODONE 5MG TAB PO PRN (20:25)
[2021-07-18] MEDS ORDERED: HOME MED LIST COMPLETE! XX SCH (20:35)
[2021-07-18 20:40] VITALS: BP 140/70
[2021-07-18] MEDS: DOCUSATE SODIUM 100MG CAPSULE PO SCH (21:00)
[2021-07-18] MEDS ORDERED: SERTRALINE HCL 50 MG TAB PO SCH (21:00)
[2021-07-18] MEDS ORDERED: HumaLOG INSULIN (NovoLOG) PER UNIT SC SCH (21:00)
[2021-07-18] MEDS ORDERED: rOPINIRole 1MG TAB PO SCH (21:00)
[2021-07-18 21:10] VITALS: BP 135/70
[2021-07-18 22:00] VITALS: O2SAT 96
[2021-07-18] MEDS: METOPROLOL TART 25 MG TABLET PO SCH (22:34)
[2021-07-18] MEDS: oxyCODONE 5MG TAB PO PRN (22:35)
[2021-07-18 23:10] VITALS: BP 135/80
[2021-07-19] MEDS: ACETAMINOPHEN TAB 650MG DOSE (2X325MG) PO SCH ×3 (00:05→11:27)
[2021-07-19] MEDS: ceFAZolin SOD 2 GM in IV 1 EA IV SCH ×2 (00:05→08:45)
[2021-07-19 00:10] VITALS: BP 130/80
[2021-07-19 06:00] VITALS: BP 150/88
[2021-07-19 06:01] LABS: BASO % 0.2 % (0.0-1.0); HEMATOCRIT 37.6 % (42.0-52.0); HEMOGLOBIN 12.3 g/dl (13.5-17.5); LYMPH # 0.8 10^3/uL (1.5-5.0); LYMPH % 7.6 % (24.0-44.0); MEAN CORPUSCULAR HEMOGLOBIN 29.9 pg (27.0-33.0); MEAN CORPUSCULAR HGB CONC 32.7 g/dl (32.0-36.5); MEAN CORPUSCULAR VOLUME 91.3 fl (80.0-96.0); MONO # 0.7 10^3/uL (0.0-0.8); MONO % 6.6 % (2.0-8.0); NEUTROPHILS # 9.3 10^3/uL (1.5-8.5); NEUTROPHILS % 85.2 % (36.0-66.0); PLATELET COUNT, AUTOMATED 209 10^3/uL (150-450); RED BLOOD COUNT 4.12 10^6/uL (4.30-6.10); WHITE BLOOD COUNT 10.9 10^3/uL (4.0-10.0)
[2021-07-19 06:08] LABS: INR 1.11; PROTHROMBIN TIME 14.7 SECONDS (12.7-14.5)
[2021-07-19 06:09] LABS: PARTIAL THROMBOPLASTIN TIME 33.1 SECONDS (25.9-37.0)
[2021-07-19 06:23] LABS: BLOOD UREA NITROGEN 21 MG/DL (7-18); CARBON DIOXIDE LEVEL 26 MEQ/L (21-32); CHLORIDE LEVEL 103 MEQ/L (98-107); CREATININE FOR GFR 0.77 MG/DL (0.70-1.30); GLOMERULAR FILTRATION RATE > 60.0 (>56); GLUCOSE, FASTING 171 MG/DL (70-100); POTASSIUM SERUM 4.7 MEQ/L (3.5-5.1); SODIUM LEVEL 138 MEQ/L (136-145)
[2021-07-19] MEDS: HumaLOG INSULIN (NovoLOG) PER UNIT SC SCH ×2 (08:03→12:42)
[2021-07-19] MEDS: oxyCODONE 5MG TAB PO PRN (08:04)
[2021-07-19] MEDS ORDERED: BACT800T5 PO (08:31)
[2021-07-19] MEDS: FUROSEMIDE 40 MG TAB PO SCH ×2 (08:45→09:00)
[2021-07-19] MEDS: DOCUSATE SODIUM 100MG CAPSULE PO SCH (08:47)
[2021-07-19 09:00] VITALS: BP 109/69
[2021-07-19] MEDS ORDERED: ASCORBIC ACID 500 MG TAB PO SCH (09:00)
[2021-07-19] MEDS ORDERED: METOPROLOL TART 50 MG TAB PO SCH (09:00)
[2021-07-19] MEDS ORDERED: MULTIVITAMINS/MINERALS THERAP 1 TAB PO SCH (09:00)
[2021-07-19] MEDS ORDERED: FOLIC ACID 1 MG TAB PO SCH (09:00)
[2021-07-19] MEDS: METOPROLOL TART 25 MG TABLET PO SCH (09:00)
[2021-07-19] MEDS ORDERED: LACTULOSE 20 GM/30 ML SYRUP UD PO SCH (09:00)
[2021-07-19] MEDS ORDERED: ATORVASTATIN 20 MG TAB PO SCH (09:00)
[2021-07-19] MEDS ORDERED: FUROSEMIDE 40 MG TAB PO SCH (09:00)
[2021-07-19] MEDS ORDERED: OMEPRAZOLE 20MG CAP PO SCH (09:00)
[2021-07-19] MEDS ORDERED: APIXABAN 5 MG TAB (ELIQUIS) PO SCH ×2 (09:00)
[2021-07-19] MEDS ORDERED: FLUBLOK(EGG FREE)(QUAD)INFLUENZA VACC 0.5ML SYRINGE 18YRS & OLDER IM ONE (09:00)
[2021-07-19] MEDS ORDERED: FERROUS SULFATE 325MG TAB PO SCH (09:00)
[2021-07-19] MEDS ORDERED: SPIRONOLACTONE 12.5MG PER 1/2 TABLET PO SCH (09:00)
[2021-07-19 10:00] VITALS: BP 136/80
[2021-07-19] MEDS ORDERED: OXYC-517 PO (12:55)
== END 2021-07-19 13:20 | disposition home or self-care (01) ==
LOC: M SDC 12:09 → M MS5PR 19:00
PROVIDERS: ADMIT Internal Medicine; ATTEND Orthopaedic Surgery Adult Reconstructive Orthopaedic Surgery
DX: T81.32XA Disruption of internal operation (surgical) wound, not elsewhere classified, initial encounter (principal); T84.54XA Infection and inflammatory reaction due to internal left knee prosthesis, initial encounter; Y79.2 Prosthetic and other implants, materials and accessory orthopedic devices associated with adverse incidents; B95.7 Other staphylococcus as the cause of diseases classified elsewhere; M17.12 Unilateral primary osteoarthritis, left knee; I10 Essential (primary) hypertension; E11.9 Type 2 diabetes mellitus without complications; K70.30 Alcoholic cirrhosis of liver without ascites; G47.33 Obstructive sleep apnea (adult) (pediatric); K21.9 Gastro-esophageal reflux disease without esophagitis; E78.5 Hyperlipidemia, unspecified; I48.91 Unspecified atrial fibrillation; I49.5 Sick sinus syndrome; Z95.0 Presence of cardiac pacemaker; F10.11 Alcohol abuse, in remission; F41.9 Anxiety disorder, unspecified; F32.9 Major depressive disorder, single episode, unspecified; G25.81 Restless legs syndrome; J30.9 Allergic rhinitis, unspecified; Z79.899 Other long term (current) drug therapy; Z79.01 Long term (current) use of anticoagulants; Z79.84 Long term (current) use of oral hypoglycemic drugs
CPT/HCPCS: 27486; 36415; 73560; 80048; 82140; 83605; 83735; 85025; 85610; 85730; 87070; 87075; 87077; 87186; 90471; 90682; 96361; 96365; 96366; 97161; 97165; 97530; C1776; J0690; J1100; J1170; J1885; J2250; J2370; J2405; J3010

== ENCOUNTER 2021-07-28 11:15 | Outpatient (CLI) | payer BC ==
[~2021-07-28] VITALS: Ht 175.3 cm; Wt 111.9 kg
[2021-07-28 11:15] VITALS: BP 125/81
[~2021-07-28 11:15] MED LIST changes: -DAPT500V8 IV; -JANT4TAB PO; +LIDOCAINE 1% MDV 20ML VIAL As Ordered ONE
[2021-07-28 12:22] LABS: BASO # 0.1 10^3/uL (0.0-0.2); BASO % 0.6 % (0.0-1.0); EOS # 0.1 10^3/uL (0.0-0.5); EOS % 1.2 % (0.0-3.0); HEMATOCRIT 36.6 % (42.0-52.0); HEMOGLOBIN 11.8 g/dl (13.5-17.5); LYMPH # 1.7 10^3/uL (1.5-5.0); LYMPH % 16.4 % (24.0-44.0); MEAN CORPUSCULAR HEMOGLOBIN 28.9 pg (27.0-33.0); MEAN CORPUSCULAR HGB CONC 32.2 g/dl (32.0-36.5); MEAN CORPUSCULAR VOLUME 89.7 fl (80.0-96.0); MONO # 1.3 10^3/uL (0.0-0.8); MONO % 12.4 % (2.0-8.0); NEUTROPHILS # 7.3 10^3/uL (1.5-8.5); PLATELET COUNT, AUTOMATED 261 10^3/uL (150-450); RED BLOOD COUNT 4.08 10^6/uL (4.30-6.10); WHITE BLOOD COUNT 10.5 10^3/uL (4.0-10.0)
[2021-07-28] MEDS ORDERED: SODIUM CHLORIDE 0.9% INJ 10 ML SYR IV PRN (12:45)
[2021-07-28 12:47] LABS: ERYTHROCYTE SEDIMENTATION RATE 2 mm/hr (0-20)
[2021-07-28] MEDS ORDERED: DAPTOmycin 750 MG in NS 50 ML IV ONE (13:00)
[2021-07-28 13:10] VITALS: BP 122/76
[2021-07-28 13:55] LABS: ALBUMIN 3.2 GM/DL (3.2-5.2); ALT/SGPT 33 U/L (12-78); BILIRUBIN,TOTAL 0.7 MG/DL (0.2-1.0); BLOOD UREA NITROGEN 16 MG/DL (7-18); C REACTIVE PROTEIN QUANTITATIV 5.51 MG/DL (0.00-0.30); CALCIUM LEVEL 9.5 MG/DL (8.5-10.1); CARBON DIOXIDE LEVEL 26 MEQ/L (21-32); CHLORIDE LEVEL 105 MEQ/L (98-107); CREATININE FOR GFR 0.76 MG/DL (0.70-1.30); GLOMERULAR FILTRATION RATE > 60.0 (>56); GLUCOSE, FASTING 114 MG/DL (70-100); POTASSIUM SERUM 4.5 MEQ/L (3.5-5.1); SODIUM LEVEL 136 MEQ/L (136-145); TOTAL PROTEIN 7.5 GM/DL (6.4-8.2)
[2021-07-28] MEDS ORDERED: SODIUM CHLORIDE 0.9% INJ 10 ML SYR IV SCH (18:00)
== END 2021-07-28 13:15 | disposition home or self-care (01) ==
LOC: M INFU 11:15
PROVIDERS: ATTEND Internal Medicine Infectious Disease
DX: T84.59XA Infection and inflammatory reaction due to other internal joint prosthesis, initial encounter (principal)
CPT/HCPCS: 36591; 80053; 85025; 85652; 86140; 96365; J0878; J1642; J1644

== ENCOUNTER → 2021-07-28 | Outpatient (CLI) | payer BC ==
[~2021-07-28] MED LIST changes: +BACT800T5 PO; -BUPIVACAINE/EPIN 0.5% 30 ML VIAL As Ordered ONE; +DAPT500V8 IV; +JANT4TAB PO
[2021-07-28 11:00] VITALS: BP 110/66
== END ==
LOC: M IRPRO 10:14
PROVIDERS: ATTEND Internal Medicine Infectious Disease
DX: T84.59XA Infection and inflammatory reaction due to other internal joint prosthesis, initial encounter (principal)
CPT/HCPCS: 36571; 76937; C1751

== ENCOUNTER 2021-07-30 20:35 | Emergency (ER) | payer BC ==
[~2021-07-30] VITALS: Ht 177.8 cm; Wt 112.6 kg
[2021-07-30 20:35] VITALS: BP 134/78
[~2021-07-30 20:35] MED LIST changes: -LIDOCAINE 1% MDV 20ML VIAL As Ordered ONE
== END 2021-07-30 23:42 | disposition left against medical advice (07) ==
LOC: M ED 20:35
DX: Z53.29 Procedure and treatment not carried out because of patient's decision for other reasons (principal)

== ENCOUNTER → 2021-07-31 | Outpatient (REF) | payer BC ==
[~2021-07-31] MED LIST changes: +DAPT500V8 IV; +JANT4TAB PO
[2021-07-31 16:19] LABS: BASO # 0.1 10^3/uL (0.0-0.2); BASO % 0.7 % (0.0-1.0); EOS # 0.2 10^3/uL (0.0-0.5); EOS % 1.6 % (0.0-3.0); HEMATOCRIT 39.8 % (42.0-52.0); HEMOGLOBIN 12.8 g/dl (13.5-17.5); LYMPH % 16.4 % (24.0-44.0); MEAN CORPUSCULAR HEMOGLOBIN 29.2 pg (27.0-33.0); MEAN CORPUSCULAR HGB CONC 32.2 g/dl (32.0-36.5); MEAN CORPUSCULAR VOLUME 90.7 fl (80.0-96.0); MONO # 1.1 10^3/uL (0.0-0.8); MONO % 8.9 % (2.0-8.0); NEUTROPHILS # 8.9 10^3/uL (1.5-8.5); NEUTROPHILS % 71.6 % (36.0-66.0); PLATELET COUNT, AUTOMATED 325 10^3/uL (150-450); RED BLOOD COUNT 4.39 10^6/uL (4.30-6.10); WHITE BLOOD COUNT 12.4 10^3/uL (4.0-10.0)
[2021-07-31 17:12] LABS: ALBUMIN 3.2 GM/DL (3.2-5.2); ALT/SGPT 30 U/L (12-78); BILIRUBIN,TOTAL 0.7 MG/DL (0.2-1.0); BLOOD UREA NITROGEN 21 MG/DL (7-18); C REACTIVE PROTEIN QUANTITATIV 3.68 MG/DL (0.00-0.30); CALCIUM LEVEL 9.3 MG/DL (8.5-10.1); CARBON DIOXIDE LEVEL 25 MEQ/L (21-32); CHLORIDE LEVEL 102 MEQ/L (98-107); CREATININE FOR GFR 0.81 MG/DL (0.70-1.30); GLOMERULAR FILTRATION RATE > 60.0 (>56); GLUCOSE, FASTING 171 MG/DL (70-100); POTASSIUM SERUM 4.6 MEQ/L (3.5-5.1); SODIUM LEVEL 135 MEQ/L (136-145); TOTAL PROTEIN 7.3 GM/DL (6.4-8.2)
[2021-07-31 18:00] LABS: ERYTHROCYTE SEDIMENTATION RATE 43 mm/hr (0-20)
== END ==
LOC: M SHH 13:54
PROVIDERS: ATTEND Internal Medicine Infectious Disease
DX: T84.50XA Infection and inflammatory reaction due to unspecified internal joint prosthesis, initial encounter (principal)

== ENCOUNTER → 2021-07-31 | Outpatient (CLI) | payer BC | LOC: M SOG 08:15 | PROVIDERS: ATTEND Orthopaedic Surgery Adult Reconstructive Orthopaedic Surgery | DX: T84.54XD Infection and inflammatory reaction due to internal left knee prosthesis, subsequent encounter (principal); Z96.652 Presence of left artificial knee joint ==

== ENCOUNTER 2021-08-01 11:46 | Inpatient (IN) | payer BC ==
[~2021-08-01] VITALS: Ht 177.8 cm; Wt 110.8 kg
[~2021-08-01 11:46] MED LIST changes: +ACETAMINOPHEN 500 MG TAB PO ONE; +CelecoXIB 400 MG CAP PO ONE; -DAPT500V8 IV; +GABAPENTIN 300 MG CAP PO ONE; -JANT4TAB PO; +MIDAZOLAM INJ 2MG/2ML VIAL (J2250 PER 1MG) IV PRN; +ONDANSETRON 4MG/2ML VIAL IV ONE; +ROPIVA 125MG/EPINEPH 0.25MG/CLONID 40MCG/KETOR 15MG IN NS 50ML SYRINGE PA ONE
[2021-08-01] MEDS ORDERED: JANT4TAB PO (12:23)
[2021-08-01] MEDS ORDERED: DAPT500V8 IV (12:23)
[2021-08-01 13:21] LABS: INR 1.21; PROTHROMBIN TIME 15.7 SECONDS (12.7-14.5)
[2021-08-01 13:22] LABS: PARTIAL THROMBOPLASTIN TIME 34.7 SECONDS (25.9-37.0)
[2021-08-01] MEDS ORDERED: VANCOMYCIN 1000MG/20ML VIAL As Ordered ONE ×3 (18:42→20:32)
[2021-08-01] MEDS ORDERED: METHYLENE BLUE 0.5% (5MG/ML) 10 ML AMP (PROVAYBLUE) As Ordered ONE (18:42)
[2021-08-01] MEDS ORDERED: ROCURONIUM BROMIDE 50 MG/5 ML VIAL As Ordered ONE ×2 (19:29→20:21)
[2021-08-01] MEDS ORDERED: SUGAMMADEX SODIUM 500 MG/5 ML VIAL (BRIDION) As Ordered ONE (19:29)
[2021-08-01] MEDS ORDERED: fentaNYL 250 MCG/5 ML INJECTION As Ordered ONE (19:29)
[2021-08-01] MEDS ORDERED: MIDAZOLAM INJ 2MG/2ML VIAL (J2250 PER 1MG) As Ordered ONE (19:29)
[2021-08-01] MEDS ORDERED: PHENYLephrine 500MCG 5ML (100MCG/ML) SYRINGE As Ordered ONE (19:29)
[2021-08-01] MEDS ORDERED: METOCLOPRAMIDE INJ 10MG/2ML VIAL (J2765 PER 1) As Ordered ONE (19:29)
[2021-08-01] MEDS ORDERED: propofoL 200 MG/20 ML VIAL As Ordered ONE (19:29)
[2021-08-01] MEDS ORDERED: dexameTHASONE 4 MG/ML 1ML VIAL (J1100 PER 1MG) As Ordered ONE (19:29)
[2021-08-01] MEDS ORDERED: LIDOCAINE 2% 100MG/5ML SDV (FOR ANES.) As Ordered ONE (19:29)
[2021-08-01] MEDS ORDERED: ONDANSETRON 4MG/2ML VIAL As Ordered ONE (19:29)
[2021-08-01] MEDS ORDERED: ESMOLOL INJ 100MG/10ML VIAL As Ordered ONE (19:32)
[2021-08-01] MEDS ORDERED: ACETAMINOPHEN 1000MG 100ML IV BTL (OFIRMEV) (J0131 PER 10MG) As Ordered ONE (19:51)
[2021-08-01] MEDS ORDERED: LABETALOL 100MG/20ML VIAL As Ordered ONE (20:08)
[2021-08-01] MEDS ORDERED: METOPROLOL 5 MG/5 ML VIAL As Ordered ONE (20:57)
[2021-08-01] MEDS: rOPINIRole 2MG TAB PO SCH (21:00)
[2021-08-01] MEDS: HumaLOG INSULIN (NovoLOG) PER UNIT SC SCH (21:00)
[2021-08-01] MEDS ORDERED: HYDROmorphone HCL 2MG/ML 1ML VIAL As Ordered ONE (21:40)
[2021-08-01] MEDS ORDERED: TRANEXAMIC ACID 100 MG/ML 10ML VIAL As Ordered ONE (21:41)
[2021-08-01] MEDS ORDERED: fentaNYL 100 MCG/2 ML INJECTION As Ordered ONE (22:41)
[2021-08-01] MEDS: fentaNYL 100 MCG/2 ML INJECTION IV PRN ×4 (22:42→23:00)
[2021-08-01] MEDS ORDERED: oxyCODONE 5MG TAB PO PRN (23:00)
[2021-08-01] MEDS ORDERED: LR 1,000 ML IV SCH (23:00)
[2021-08-01] MEDS ORDERED: ONDANSETRON 4MG/2ML VIAL IV PRN (23:00)
[2021-08-01] MEDS ORDERED: ROPIvacaine 0.5% 30ML INJECTION (J2795 PER 1MG) XX ONE (23:20)
[2021-08-01] MEDS ORDERED: DEXTROSE 50% 50 ML SYRINGE IV PRN (23:20)
[2021-08-01] MEDS ORDERED: dexameTHASONE 10MG/1ML VIAL PRES.FREE (J1100 PER 1MG) XX ONE (23:20)
[2021-08-01] MEDS ORDERED: GLUCOSE 4GM CHEW TABLET PO PRN (23:20)
[2021-08-01] MEDS ORDERED: EPINEPHrine INJ 1 MG/ML 1ML AMP XX ONE (23:20)
[2021-08-01] MEDS ORDERED: GLUCAGON INJ 1MG VIAL SC PRN (23:20)
[2021-08-02] VITALS (11 sets, daily range): BP systolic 100–131; BP diastolic 65–84
[2021-08-02] MEDS ORDERED: LR 1,000 ML IV SCH (01:25)
[2021-08-02] MEDS ORDERED: ONDANSETRON 4MG/2ML VIAL IV PRN (01:25)
[2021-08-02] MEDS ORDERED: SENNA 8.6 MG TAB (SENOKOT) PO PRN (01:30)
[2021-08-02] MEDS: SERTRALINE HCL 50 MG TAB PO SCH ×2 (02:24→21:33)
[2021-08-02 05:09] LABS: VENOUS BASE EXCESS -2.5 (-2.0-2.0); VENOUS HCO3 23.8 MEQ/L (23.0-27.0); VENOUS O2 SATURATION 87.9 % (60.0-80.0); VENOUS PARTIAL PRESSURE CO2 47.9 mmHg (38.0-50.0); VENOUS PARTIAL PRESSURE O2 59.5 mmHg (30.0-50.0); VENOUS PH 7.315 UNITS (7.330-7.430); VENOUS STANDARD HCO3 22.2 MEQ/L; VENOUS TOTAL CO2 25.3 MEQ/L (24.0-28.0)
[2021-08-02] MEDS: SODIUM CHLORIDE 0.9% INJ 10 ML SYR IV SCH ×2 (05:09→17:38)
[2021-08-02] MEDS: ACETAMINOPHEN TAB 650MG DOSE (2X325MG) PO SCH ×4 (05:09→23:50)
[2021-08-02 05:30] LABS: BASO % 0.1 % (0.0-1.0); HEMATOCRIT 32.5 % (42.0-52.0); LYMPH # 0.7 10^3/uL (1.5-5.0); LYMPH % 6.7 % (24.0-44.0); MEAN CORPUSCULAR HEMOGLOBIN 29.5 pg (27.0-33.0); MEAN CORPUSCULAR HGB CONC 32.3 g/dl (32.0-36.5); MEAN CORPUSCULAR VOLUME 91.3 fl (80.0-96.0); MONO # 0.1 10^3/uL (0.0-0.8); MONO % 1.4 % (2.0-8.0); NEUTROPHILS % 91.3 % (36.0-66.0); PLATELET COUNT, AUTOMATED 241 10^3/uL (150-450); RED BLOOD COUNT 3.56 10^6/uL (4.30-6.10); WHITE BLOOD COUNT 9.9 10^3/uL (4.0-10.0)
[2021-08-02 05:38] LABS: HEMOGLOBIN 10.5 g/dl (13.5-17.5)
[2021-08-02 05:44] LABS: BLOOD UREA NITROGEN 22 MG/DL (7-18); CALCIUM LEVEL 8.6 MG/DL (8.5-10.1); CARBON DIOXIDE LEVEL 29 MEQ/L (21-32); CHLORIDE LEVEL 103 MEQ/L (98-107); CREATININE FOR GFR 0.92 MG/DL (0.70-1.30); GLOMERULAR FILTRATION RATE > 60.0 (>56); GLUCOSE, FASTING 203 MG/DL (70-100); MAGNESIUM LEVEL 1.5 MG/DL (1.8-2.4); POTASSIUM SERUM 5.3 MEQ/L (3.5-5.1); SODIUM LEVEL 133 MEQ/L (136-145)
[2021-08-02 05:54] LABS: INR 1.36; PROTHROMBIN TIME 17.2 SECONDS (12.7-14.5)
[2021-08-02] MEDS ORDERED: MAG SULF 1GM/100ML (MAG RUN) 1 GM in IV 1 EA IV ONE (07:55)
[2021-08-02] MEDS ORDERED: METOPROLOL TART 50 MG TAB PO SCH (09:00)
[2021-08-02] MEDS ORDERED: SOD POLYSTYRENE SULFONATE SUSP 15 GM/60 ML UD PO ONE (09:00)
[2021-08-02] MEDS: HumaLOG INSULIN (NovoLOG) PER UNIT SC SCH ×4 (09:07→20:23)
[2021-08-02] MEDS: LACTULOSE 20 GM/30 ML SYRUP UD PO SCH ×3 (09:07→21:33)
[2021-08-02] MEDS: FUROSEMIDE 40 MG TAB PO SCH (09:08)
[2021-08-02] MEDS: DOCUSATE SODIUM 100MG CAPSULE PO SCH ×2 (09:08→21:33)
[2021-08-02] MEDS: ATORVASTATIN 20 MG TAB PO SCH (09:08)
[2021-08-02] MEDS: ASCORBIC ACID 500 MG TAB PO SCH (09:08)
[2021-08-02] MEDS: FERROUS SULFATE 325MG TAB PO SCH (09:08)
[2021-08-02] MEDS: METOPROLOL TART 25 MG TABLET PO SCH ×2 (09:10→21:34)
[2021-08-02] MEDS: VANCOMYCIN HCL 1,000 MG, VIAL MATE ADAPTER 1 EACH in NS 250 ML IV SCH ×2 (09:11→21:34)
[2021-08-02] MEDS: SPIRONOLACTONE 12.5MG PER 1/2 TABLET PO SCH (09:12)
[2021-08-02] MEDS: oxyCODONE 5MG TAB PO PRN ×2 (10:14→18:39)
[2021-08-02] MEDS: rOPINIRole 2MG TAB PO SCH (21:33)
[2021-08-03] MEDS ORDERED: UNRESOLVED CLARIFICATION ENTRY XX SCH (00:01)
[2021-08-03] MEDS: oxyCODONE 5MG TAB PO PRN ×3 (04:36→17:22)
[2021-08-03] MEDS: SODIUM CHLORIDE 0.9% INJ 10 ML SYR IV SCH ×2 (04:37→17:23)
[2021-08-03] MEDS: ACETAMINOPHEN TAB 650MG DOSE (2X325MG) PO SCH ×4 (04:37→23:21)
[2021-08-03 04:55] LABS: BASO % 0.1 % (0.0-1.0); HEMATOCRIT 27.8 % (42.0-52.0); HEMOGLOBIN 9.1 g/dl (13.5-17.5); LYMPH # 1.4 10^3/uL (1.5-5.0); LYMPH % 9.7 % (24.0-44.0); MEAN CORPUSCULAR HEMOGLOBIN 29.4 pg (27.0-33.0); MEAN CORPUSCULAR HGB CONC 32.7 g/dl (32.0-36.5); NEUTROPHILS # 12.2 10^3/uL (1.5-8.5); NEUTROPHILS % 82.6 % (36.0-66.0); PLATELET COUNT, AUTOMATED 190 10^3/uL (150-450); RED BLOOD COUNT 3.09 10^6/uL (4.30-6.10); WHITE BLOOD COUNT 14.7 10^3/uL (4.0-10.0)
[2021-08-03 05:05] LABS: INR 1.28; PROTHROMBIN TIME 16.4 SECONDS (12.7-14.5)
[2021-08-03 05:29] LABS: BLOOD UREA NITROGEN 22 MG/DL (7-18); CALCIUM LEVEL 8.5 MG/DL (8.5-10.1); CARBON DIOXIDE LEVEL 30 MEQ/L (21-32); CHLORIDE LEVEL 109 MEQ/L (98-107); CREATININE FOR GFR 0.73 MG/DL (0.70-1.30); GLOMERULAR FILTRATION RATE > 60.0 (>56); GLUCOSE, FASTING 127 MG/DL (70-100); POTASSIUM SERUM 4.7 MEQ/L (3.5-5.1); SODIUM LEVEL 142 MEQ/L (136-145)
[2021-08-03 05:43] VITALS: BP 97/69
[2021-08-03 07:35] LABS: C REACTIVE PROTEIN QUANTITATIV 1.53 MG/DL (0.00-0.30)
[2021-08-03] MEDS: VANCOMYCIN HCL 1,000 MG, VIAL MATE ADAPTER 1 EACH in NS 250 ML IV SCH (08:32)
[2021-08-03] MEDS: ASCORBIC ACID 500 MG TAB PO SCH (08:33)
[2021-08-03] MEDS: LACTULOSE 20 GM/30 ML SYRUP UD PO SCH ×3 (08:33→20:19)
[2021-08-03] MEDS: FUROSEMIDE 40 MG TAB PO SCH (08:33)
[2021-08-03] MEDS: ATORVASTATIN 20 MG TAB PO SCH (08:33)
[2021-08-03] MEDS: DOCUSATE SODIUM 100MG CAPSULE PO SCH ×2 (08:33→20:24)
[2021-08-03] MEDS: HumaLOG INSULIN (NovoLOG) PER UNIT SC SCH ×4 (08:33→21:00)
[2021-08-03] MEDS: FERROUS SULFATE 325MG TAB PO SCH (08:34)
[2021-08-03] MEDS: SPIRONOLACTONE 12.5MG PER 1/2 TABLET PO SCH (08:34)
[2021-08-03] MEDS: METOPROLOL TART 25 MG TABLET PO SCH ×2 (08:34→20:23)
[2021-08-03 09:00] VITALS: BP 130/88
[2021-08-03] MEDS: MORPHINE 4 MG/ML 1ML VIAL/SYRINGE (J2270) IV PRN ×2 (11:20→22:25)
[2021-08-03] MEDS: APIXABAN 5 MG TAB (ELIQUIS) PO SCH ×2 (12:24→20:24)
[2021-08-03 14:00] VITALS: BP 130/75
[2021-08-03] MEDS: DAPTOmycin 750 MG in NS 50 ML IV SCH (20:19)
[2021-08-03] MEDS: rOPINIRole 2MG TAB PO SCH (20:24)
[2021-08-03] MEDS: SERTRALINE HCL 50 MG TAB PO SCH (20:24)
[2021-08-03 20:36] VITALS: BP 122/74
[2021-08-03] MEDS: SODIUM CHLORIDE 0.9% INJ 10 ML SYR IV PRN (23:22)
[2021-08-04] MEDS: ACETAMINOPHEN TAB 650MG DOSE (2X325MG) PO SCH ×3 (05:03→18:21)
[2021-08-04] MEDS: SODIUM CHLORIDE 0.9% INJ 10 ML SYR IV SCH ×2 (05:04→18:22)
[2021-08-04 05:36] LABS: BASO % 0.4 % (0.0-1.0); EOS # 0.2 10^3/uL (0.0-0.5); EOS % 1.9 % (0.0-3.0); HEMATOCRIT 27.6 % (42.0-52.0); HEMOGLOBIN 8.9 g/dl (13.5-17.5); LYMPH # 2.4 10^3/uL (1.5-5.0); LYMPH % 25.1 % (24.0-44.0); MEAN CORPUSCULAR HEMOGLOBIN 29.8 pg (27.0-33.0); MEAN CORPUSCULAR HGB CONC 32.2 g/dl (32.0-36.5); MEAN CORPUSCULAR VOLUME 92.3 fl (80.0-96.0); NEUTROPHILS % 61.8 % (36.0-66.0); PLATELET COUNT, AUTOMATED 187 10^3/uL (150-450); RED BLOOD COUNT 2.99 10^6/uL (4.30-6.10); WHITE BLOOD COUNT 9.7 10^3/uL (4.0-10.0)
[2021-08-04 05:43] LABS: BLOOD UREA NITROGEN 16 MG/DL (7-18); CALCIUM LEVEL 8.5 MG/DL (8.5-10.1); CARBON DIOXIDE LEVEL 31 MEQ/L (21-32); CHLORIDE LEVEL 108 MEQ/L (98-107); CREATININE FOR GFR 0.64 MG/DL (0.70-1.30); GLOMERULAR FILTRATION RATE > 60.0 (>56); GLUCOSE, FASTING 134 MG/DL (70-100); MAGNESIUM LEVEL 1.7 MG/DL (1.8-2.4); POTASSIUM SERUM 4.2 MEQ/L (3.5-5.1); SODIUM LEVEL 142 MEQ/L (136-145)
[2021-08-04 06:05] VITALS: BP 108/62
[2021-08-04] MEDS ORDERED: MORPHINE 4 MG/ML 1ML VIAL/SYRINGE (J2270) IV ONE (08:00)
[2021-08-04] MEDS ORDERED: MAG SULF 1GM/100ML (MAG RUN) 1 GM in IV 1 EA IV ONE (08:00)
[2021-08-04] MEDS: HumaLOG INSULIN (NovoLOG) PER UNIT SC SCH ×4 (08:19→21:00)
[2021-08-04] MEDS: ASCORBIC ACID 500 MG TAB PO SCH (08:20)
[2021-08-04] MEDS: FERROUS SULFATE 325MG TAB PO SCH (08:20)
[2021-08-04] MEDS: ATORVASTATIN 20 MG TAB PO SCH (08:20)
[2021-08-04] MEDS: OMEPRAZOLE 20MG CAP PO SCH (08:20)
[2021-08-04] MEDS: APIXABAN 5 MG TAB (ELIQUIS) PO SCH ×2 (08:20→20:56)
[2021-08-04] MEDS: FUROSEMIDE 40 MG TAB PO SCH (08:20)
[2021-08-04] MEDS: METOPROLOL TART 25 MG TABLET PO SCH ×2 (08:21→20:56)
[2021-08-04] MEDS: SPIRONOLACTONE 12.5MG PER 1/2 TABLET PO SCH (08:21)
[2021-08-04] MEDS: DOCUSATE SODIUM 100MG CAPSULE PO SCH ×2 (08:21→20:57)
[2021-08-04] MEDS: LACTULOSE 20 GM/30 ML SYRUP UD PO SCH ×3 (08:21→20:56)
[2021-08-04] MEDS: oxyCODONE 5MG TAB PO PRN ×2 (11:28→22:11)
[2021-08-04 14:00] VITALS: BP 113/67
[2021-08-04] MEDS: MORPHINE 4 MG/ML 1ML VIAL/SYRINGE (J2270) IV PRN (16:47)
[2021-08-04 20:26] VITALS: BP 144/84
[2021-08-04] MEDS: DAPTOmycin 750 MG in NS 50 ML IV SCH (20:56)
[2021-08-04] MEDS: SERTRALINE HCL 50 MG TAB PO SCH (20:56)
[2021-08-04] MEDS: rOPINIRole 2MG TAB PO SCH (20:56)
[2021-08-04] MEDS: traMADol 50 MG TAB PO PRN (20:57)
[2021-08-04] MEDS: SODIUM CHLORIDE 0.9% INJ 10 ML SYR IV PRN (20:58)
[2021-08-05] MEDS: ACETAMINOPHEN TAB 650MG DOSE (2X325MG) PO SCH ×5 (00:33→23:41)
[2021-08-05] MEDS: traMADol 50 MG TAB PO PRN ×2 (05:21→12:08)
[2021-08-05] MEDS: SODIUM CHLORIDE 0.9% INJ 10 ML SYR IV PRN ×2 (05:22→21:24)
[2021-08-05 05:28] VITALS: BP 121/72
[2021-08-05 05:47] LABS: BASO # 0.1 10^3/uL (0.0-0.2); BASO % 0.7 % (0.0-1.0); EOS # 0.3 10^3/uL (0.0-0.5); EOS % 2.8 % (0.0-3.0); HEMATOCRIT 31.5 % (42.0-52.0); HEMOGLOBIN 10.3 g/dl (13.5-17.5); LYMPH # 2.6 10^3/uL (1.5-5.0); LYMPH % 27.9 % (24.0-44.0); MEAN CORPUSCULAR HEMOGLOBIN 29.9 pg (27.0-33.0); MEAN CORPUSCULAR HGB CONC 32.7 g/dl (32.0-36.5); MEAN CORPUSCULAR VOLUME 91.6 fl (80.0-96.0); MONO # 0.8 10^3/uL (0.0-0.8); MONO % 7.9 % (2.0-8.0); NEUTROPHILS # 5.7 10^3/uL (1.5-8.5); NEUTROPHILS % 59.9 % (36.0-66.0); PLATELET COUNT, AUTOMATED 211 10^3/uL (150-450); RED BLOOD COUNT 3.44 10^6/uL (4.30-6.10); WHITE BLOOD COUNT 9.4 10^3/uL (4.0-10.0)
[2021-08-05] MEDS: SODIUM CHLORIDE 0.9% INJ 10 ML SYR IV SCH ×2 (06:00→17:30)
[2021-08-05 06:15] LABS: BLOOD UREA NITROGEN 13 MG/DL (7-18); CALCIUM LEVEL 8.8 MG/DL (8.5-10.1); CARBON DIOXIDE LEVEL 32 MEQ/L (21-32); CHLORIDE LEVEL 104 MEQ/L (98-107); CREATININE FOR GFR 0.61 MG/DL (0.70-1.30); GLOMERULAR FILTRATION RATE > 60.0 (>56); GLUCOSE, FASTING 117 MG/DL (70-100); MAGNESIUM LEVEL 1.7 MG/DL (1.8-2.4); POTASSIUM SERUM 4.3 MEQ/L (3.5-5.1); SODIUM LEVEL 139 MEQ/L (136-145)
[2021-08-05] MEDS: oxyCODONE 5MG TAB PO PRN ×3 (06:50→21:20)
[2021-08-05] MEDS: LACTULOSE 20 GM/30 ML SYRUP UD PO SCH ×3 (08:27→21:26)
[2021-08-05] MEDS: HumaLOG INSULIN (NovoLOG) PER UNIT SC SCH ×4 (08:27→21:00)
[2021-08-05] MEDS: MAG SULF 1GM/100ML (MAG RUN) 1 GM in IV 1 EA IV SCH ×2 (08:28→09:34)
[2021-08-05] MEDS: METOPROLOL TART 25 MG TABLET PO SCH ×2 (08:28→21:21)
[2021-08-05] MEDS: FUROSEMIDE 40 MG TAB PO SCH (08:29)
[2021-08-05] MEDS: FERROUS SULFATE 325MG TAB PO SCH (08:29)
[2021-08-05] MEDS: SPIRONOLACTONE 12.5MG PER 1/2 TABLET PO SCH (08:29)
[2021-08-05] MEDS: ATORVASTATIN 20 MG TAB PO SCH (08:29)
[2021-08-05] MEDS: DOCUSATE SODIUM 100MG CAPSULE PO SCH ×2 (08:29→21:19)
[2021-08-05] MEDS: OMEPRAZOLE 20MG CAP PO SCH (08:29)
[2021-08-05] MEDS: APIXABAN 5 MG TAB (ELIQUIS) PO SCH ×2 (08:30→21:20)
[2021-08-05] MEDS: ASCORBIC ACID 500 MG TAB PO SCH (08:30)
[2021-08-05] MEDS: DAPTOmycin 750 MG in NS 50 ML IV SCH (19:40)
[2021-08-05] MEDS: rOPINIRole 2MG TAB PO SCH (21:20)
[2021-08-05] MEDS: SERTRALINE HCL 50 MG TAB PO SCH (21:22)
[2021-08-06] MEDS: SODIUM CHLORIDE 0.9% INJ 10 ML SYR IV PRN ×2 (05:19→19:49)
[2021-08-06] MEDS: oxyCODONE 5MG TAB PO PRN ×2 (05:20→18:59)
[2021-08-06] MEDS: ACETAMINOPHEN TAB 650MG DOSE (2X325MG) PO SCH ×3 (05:20→17:08)
[2021-08-06] MEDS: SODIUM CHLORIDE 0.9% INJ 10 ML SYR IV SCH ×2 (05:20→17:08)
[2021-08-06 05:22] VITALS: BP 110/76
[2021-08-06 05:41] LABS: BASO # 0.1 10^3/uL (0.0-0.2); BASO % 0.8 % (0.0-1.0); EOS # 0.3 10^3/uL (0.0-0.5); EOS % 3.3 % (0.0-3.0); HEMATOCRIT 30.5 % (42.0-52.0); HEMOGLOBIN 9.8 g/dl (13.5-17.5); LYMPH # 2.6 10^3/uL (1.5-5.0); LYMPH % 26.3 % (24.0-44.0); MEAN CORPUSCULAR HEMOGLOBIN 29.3 pg (27.0-33.0); MEAN CORPUSCULAR HGB CONC 32.1 g/dl (32.0-36.5); MONO # 0.8 10^3/uL (0.0-0.8); MONO % 8.5 % (2.0-8.0); NEUTROPHILS # 5.9 10^3/uL (1.5-8.5); NEUTROPHILS % 60.5 % (36.0-66.0); PLATELET COUNT, AUTOMATED 214 10^3/uL (150-450); RED BLOOD COUNT 3.35 10^6/uL (4.30-6.10); WHITE BLOOD COUNT 9.8 10^3/uL (4.0-10.0)
[2021-08-06 06:09] LABS: BLOOD UREA NITROGEN 12 MG/DL (7-18); CALCIUM LEVEL 8.2 MG/DL (8.5-10.1); CARBON DIOXIDE LEVEL 31 MEQ/L (21-32); CHLORIDE LEVEL 105 MEQ/L (98-107); GLOMERULAR FILTRATION RATE > 60.0 (>56); GLUCOSE, FASTING 116 MG/DL (70-100); MAGNESIUM LEVEL 1.6 MG/DL (1.8-2.4); POTASSIUM SERUM 4.3 MEQ/L (3.5-5.1); SODIUM LEVEL 140 MEQ/L (136-145)
[2021-08-06] MEDS: FERROUS SULFATE 325MG TAB PO SCH (08:36)
[2021-08-06] MEDS: LACTULOSE 20 GM/30 ML SYRUP UD PO SCH ×3 (08:36→20:12)
[2021-08-06] MEDS: ASCORBIC ACID 500 MG TAB PO SCH (08:36)
[2021-08-06] MEDS: MAGNESIUM OXIDE 400MG TAB (MAG-OX) PO SCH ×2 (08:36→20:13)
[2021-08-06] MEDS: ATORVASTATIN 20 MG TAB PO SCH (08:36)
[2021-08-06] MEDS: APIXABAN 5 MG TAB (ELIQUIS) PO SCH ×2 (08:36→20:13)
[2021-08-06] MEDS: HumaLOG INSULIN (NovoLOG) PER UNIT SC SCH ×4 (08:36→20:50)
[2021-08-06] MEDS: DOCUSATE SODIUM 100MG CAPSULE PO SCH ×2 (08:36→20:12)
[2021-08-06] MEDS: OMEPRAZOLE 20MG CAP PO SCH (08:36)
[2021-08-06] MEDS: FUROSEMIDE 40 MG TAB PO SCH (08:37)
[2021-08-06] MEDS: METOPROLOL TART 25 MG TABLET PO SCH ×2 (08:37→20:13)
[2021-08-06] MEDS: MAG SULF 1GM/100ML (MAG RUN) 1 GM in IV 1 EA IV SCH ×2 (08:37→09:41)
[2021-08-06] MEDS: SPIRONOLACTONE 12.5MG PER 1/2 TABLET PO SCH (08:37)
[2021-08-06] MEDS: traMADol 50 MG TAB PO PRN (09:41)
[2021-08-06] MEDS: DAPTOmycin 750 MG in NS 50 ML IV SCH (19:44)
[2021-08-06 19:51] VITALS: BP 119/87
[2021-08-06] MEDS: SERTRALINE HCL 50 MG TAB PO SCH (20:13)
[2021-08-06] MEDS: rOPINIRole 2MG TAB PO SCH (20:13)
[2021-08-07] MEDS: ACETAMINOPHEN TAB 650MG DOSE (2X325MG) PO SCH ×4 (00:23→16:57)
[2021-08-07] MEDS: SODIUM CHLORIDE 0.9% INJ 10 ML SYR IV PRN (04:39)
[2021-08-07] MEDS: SODIUM CHLORIDE 0.9% INJ 10 ML SYR IV SCH ×3 (04:39→20:28)
[2021-08-07 04:57] LABS: BASO # 0.1 10^3/uL (0.0-0.2); BASO % 0.7 % (0.0-1.0); EOS # 0.3 10^3/uL (0.0-0.5); EOS % 3.4 % (0.0-3.0); HEMATOCRIT 31.7 % (42.0-52.0); HEMOGLOBIN 10.1 g/dl (13.5-17.5); LYMPH # 2.3 10^3/uL (1.5-5.0); LYMPH % 23.7 % (24.0-44.0); MEAN CORPUSCULAR HEMOGLOBIN 29.2 pg (27.0-33.0); MEAN CORPUSCULAR HGB CONC 31.9 g/dl (32.0-36.5); MEAN CORPUSCULAR VOLUME 91.6 fl (80.0-96.0); MONO # 0.8 10^3/uL (0.0-0.8); MONO % 7.8 % (2.0-8.0); NEUTROPHILS # 6.2 10^3/uL (1.5-8.5); NEUTROPHILS % 63.4 % (36.0-66.0); PLATELET COUNT, AUTOMATED 193 10^3/uL (150-450); RED BLOOD COUNT 3.46 10^6/uL (4.30-6.10); WHITE BLOOD COUNT 9.8 10^3/uL (4.0-10.0)
[2021-08-07 05:32] LABS: BLOOD UREA NITROGEN 11 MG/DL (7-18); CALCIUM LEVEL 8.9 MG/DL (8.5-10.1); CARBON DIOXIDE LEVEL 32 MEQ/L (21-32); CHLORIDE LEVEL 108 MEQ/L (98-107); CREATININE FOR GFR 0.59 MG/DL (0.70-1.30); GLOMERULAR FILTRATION RATE > 60.0 (>56); GLUCOSE, FASTING 106 MG/DL (70-100); MAGNESIUM LEVEL 1.9 MG/DL (1.8-2.4); POTASSIUM SERUM 4.4 MEQ/L (3.5-5.1); SODIUM LEVEL 143 MEQ/L (136-145)
[2021-08-07 06:00] VITALS: BP 120/86
[2021-08-07] MEDS ORDERED: BACTRIM 160MG/800MG DS TAB PO SCH (09:00)
[2021-08-07] MEDS: HumaLOG INSULIN (NovoLOG) PER UNIT SC SCH ×4 (09:07→20:53)
[2021-08-07] MEDS: APIXABAN 5 MG TAB (ELIQUIS) PO SCH ×2 (09:07→20:49)
[2021-08-07] MEDS: ASCORBIC ACID 500 MG TAB PO SCH (09:07)
[2021-08-07] MEDS: SPIRONOLACTONE 12.5MG PER 1/2 TABLET PO SCH (09:07)
[2021-08-07] MEDS: FUROSEMIDE 40 MG TAB PO SCH (09:07)
[2021-08-07] MEDS: OMEPRAZOLE 20MG CAP PO SCH (09:07)
[2021-08-07] MEDS: FERROUS SULFATE 325MG TAB PO SCH (09:07)
[2021-08-07] MEDS: DOCUSATE SODIUM 100MG CAPSULE PO SCH ×2 (09:07→20:49)
[2021-08-07] MEDS: LACTULOSE 20 GM/30 ML SYRUP UD PO SCH ×3 (09:08→20:49)
[2021-08-07] MEDS: MAGNESIUM OXIDE 400MG TAB (MAG-OX) PO SCH ×2 (09:08→20:49)
[2021-08-07] MEDS: ATORVASTATIN 20 MG TAB PO SCH (09:08)
[2021-08-07] MEDS: METOPROLOL TART 25 MG TABLET PO SCH ×2 (09:11→20:50)
[2021-08-07] MEDS: oxyCODONE 5MG TAB PO PRN (09:12)
[2021-08-07] MEDS: MORPHINE 4 MG/ML 1ML VIAL/SYRINGE (J2270) IV PRN (10:13)
[2021-08-07 20:12] VITALS: BP 117/72
[2021-08-07] MEDS: DAPTOmycin 750 MG in NS 50 ML IV SCH (20:28)
[2021-08-07] MEDS: rOPINIRole 2MG TAB PO SCH (20:49)
[2021-08-07] MEDS: SERTRALINE HCL 50 MG TAB PO SCH (20:49)
[2021-08-07] MEDS: traMADol 50 MG TAB PO PRN (20:50)
[2021-08-07] MEDS ORDERED: GABAPENTIN 300 MG CAP PO SCH (22:10)
[2021-08-08] MEDS ORDERED: oxyCODONE 5MG TAB PO ONE (00:15)
[2021-08-08] MEDS: ACETAMINOPHEN TAB 650MG DOSE (2X325MG) PO SCH ×3 (00:21→13:18)
[2021-08-08] MEDS: SODIUM CHLORIDE 0.9% INJ 10 ML SYR IV PRN (05:39)
[2021-08-08 06:00] VITALS: BP 104/59
[2021-08-08 06:02] LABS: BASO # 0.1 10^3/uL (0.0-0.2); BASO % 0.5 % (0.0-1.0); EOS # 0.3 10^3/uL (0.0-0.5); EOS % 3.3 % (0.0-3.0); HEMATOCRIT 28.8 % (42.0-52.0); HEMOGLOBIN 9.3 g/dl (13.5-17.5); LYMPH # 2.4 10^3/uL (1.5-5.0); LYMPH % 25.3 % (24.0-44.0); MEAN CORPUSCULAR HEMOGLOBIN 29.8 pg (27.0-33.0); MEAN CORPUSCULAR HGB CONC 32.3 g/dl (32.0-36.5); MEAN CORPUSCULAR VOLUME 92.3 fl (80.0-96.0); MONO # 0.8 10^3/uL (0.0-0.8); MONO % 8.1 % (2.0-8.0); NEUTROPHILS # 5.9 10^3/uL (1.5-8.5); NEUTROPHILS % 62.1 % (36.0-66.0); PLATELET COUNT, AUTOMATED 176 10^3/uL (150-450); RED BLOOD COUNT 3.12 10^6/uL (4.30-6.10); WHITE BLOOD COUNT 9.5 10^3/uL (4.0-10.0)
[2021-08-08 06:25] LABS: BLOOD UREA NITROGEN 12 MG/DL (7-18); C REACTIVE PROTEIN QUANTITATIV 1.35 MG/DL (0.00-0.30); CALCIUM LEVEL 8.9 MG/DL (8.5-10.1); CARBON DIOXIDE LEVEL 30 MEQ/L (21-32); CHLORIDE LEVEL 107 MEQ/L (98-107); CREATININE FOR GFR 0.55 MG/DL (0.70-1.30); GLOMERULAR FILTRATION RATE > 60.0 (>56); GLUCOSE, FASTING 131 MG/DL (70-100); POTASSIUM SERUM 3.9 MEQ/L (3.5-5.1); SODIUM LEVEL 140 MEQ/L (136-145)
[2021-08-08 06:37] LABS: ERYTHROCYTE SEDIMENTATION RATE 63 mm/hr (0-20)
[2021-08-08] MEDS: HumaLOG INSULIN (NovoLOG) PER UNIT SC SCH ×2 (09:05→13:19)
[2021-08-08] MEDS: oxyCODONE 5MG TAB PO PRN ×2 (09:07→15:47)
[2021-08-08 09:10] VITALS: BP 124/69
[2021-08-08] MEDS: SPIRONOLACTONE 12.5MG PER 1/2 TABLET PO SCH (09:10)
[2021-08-08] MEDS: APIXABAN 5 MG TAB (ELIQUIS) PO SCH (09:10)
[2021-08-08] MEDS: METOPROLOL TART 25 MG TABLET PO SCH (09:10)
[2021-08-08] MEDS: MAGNESIUM OXIDE 400MG TAB (MAG-OX) PO SCH (09:10)
[2021-08-08] MEDS: FUROSEMIDE 40 MG TAB PO SCH (09:11)
[2021-08-08] MEDS: DOCUSATE SODIUM 100MG CAPSULE PO SCH (09:11)
[2021-08-08] MEDS: LACTULOSE 20 GM/30 ML SYRUP UD PO SCH (09:11)
[2021-08-08] MEDS: ASCORBIC ACID 500 MG TAB PO SCH (09:11)
[2021-08-08] MEDS: FERROUS SULFATE 325MG TAB PO SCH (09:11)
[2021-08-08] MEDS: ATORVASTATIN 20 MG TAB PO SCH (09:11)
[2021-08-08] MEDS: OMEPRAZOLE 20MG CAP PO SCH (09:11)
[2021-08-08] MEDS ORDERED: OXYC-517 PO (12:59)
[2021-08-08] MEDS ORDERED: ELIQ5TAB PO (12:59)
[2021-08-08] MEDS ORDERED: GABA-282 PO (13:08)
== END 2021-08-08 16:10 | disposition home health service (06) | DRG 349 ==
LOC: M SDC 11:46 → M ED INP 23:19 → M MS5PR 08-02 00:24
PROVIDERS: ADMIT Family Medicine; ATTEND Orthopaedic Surgery Adult Reconstructive Orthopaedic Surgery
PROC: 0SHD08Z Insertion of Spacer into Left Knee Joint, Open Approach (ICD-10-PCS; principal; 2021-08-01 13:00)
DX: T84.54XA Infection and inflammatory reaction due to internal left knee prosthesis, initial encounter (principal); Z91.19 Patient's noncompliance with other medical treatment and regimen; I48.91 Unspecified atrial fibrillation; E11.9 Type 2 diabetes mellitus without complications; I10 Essential (primary) hypertension; E78.5 Hyperlipidemia, unspecified; F41.9 Anxiety disorder, unspecified; F32.A Depression, unspecified; K70.30 Alcoholic cirrhosis of liver without ascites; G47.33 Obstructive sleep apnea (adult) (pediatric); K21.9 Gastro-esophageal reflux disease without esophagitis; F34.1 Dysthymic disorder; Z85.038 Personal history of other malignant neoplasm of large intestine; G25.81 Restless legs syndrome; I49.5 Sick sinus syndrome; Z79.84 Long term (current) use of oral hypoglycemic drugs; Z79.01 Long term (current) use of anticoagulants; Z79.899 Other long term (current) drug therapy; Z88.0 Allergy status to penicillin; Z90.49 Acquired absence of other specified parts of digestive tract; Z96.653 Presence of artificial knee joint, bilateral; Z98.1 Arthrodesis status; F17.200 Nicotine dependence, unspecified, uncomplicated; E83.42 Hypomagnesemia

== ENCOUNTER → 2021-08-14 | Outpatient (REF) | payer BC ==
[~2021-08-14] MED LIST changes: -ACETAMINOPHEN 500 MG TAB PO ONE; -CelecoXIB 400 MG CAP PO ONE; +DAPT500V8 IV; +GABA-282 PO; -GABAPENTIN 300 MG CAP PO ONE; +JANT4TAB PO; -MIDAZOLAM INJ 2MG/2ML VIAL (J2250 PER 1MG) IV PRN; -ONDANSETRON 4MG/2ML VIAL IV ONE; -ROPIVA 125MG/EPINEPH 0.25MG/CLONID 40MCG/KETOR 15MG IN NS 50ML SYRINGE PA ONE
[2021-08-14 16:17] LABS: BASO # 0.1 10^3/uL (0.0-0.2); BASO % 0.6 % (0.0-1.0); EOS # 0.3 10^3/uL (0.0-0.5); EOS % 2.8 % (0.0-3.0); HEMATOCRIT 31.8 % (42.0-52.0); LYMPH # 2.5 10^3/uL (1.5-5.0); LYMPH % 21.7 % (24.0-44.0); MEAN CORPUSCULAR HEMOGLOBIN 29.3 pg (27.0-33.0); MEAN CORPUSCULAR HGB CONC 31.4 g/dl (32.0-36.5); MEAN CORPUSCULAR VOLUME 93.3 fl (80.0-96.0); MONO # 1.2 10^3/uL (0.0-0.8); MONO % 10.4 % (2.0-8.0); NEUTROPHILS # 7.3 10^3/uL (1.5-8.5); PLATELET COUNT, AUTOMATED 273 10^3/uL (150-450); RED BLOOD COUNT 3.41 10^6/uL (4.30-6.10); WHITE BLOOD COUNT 11.4 10^3/uL (4.0-10.0)
[2021-08-14 16:57] LABS: ALBUMIN 3.3 GM/DL (3.2-5.2); ALT/SGPT 29 U/L (12-78); BILIRUBIN,TOTAL 0.5 MG/DL (0.2-1.0); BLOOD UREA NITROGEN 14 MG/DL (7-18); CALCIUM LEVEL 9.3 MG/DL (8.5-10.1); CARBON DIOXIDE LEVEL 28 MEQ/L (21-32); CHLORIDE LEVEL 107 MEQ/L (98-107); CREATININE FOR GFR 0.66 MG/DL (0.70-1.30); GLOMERULAR FILTRATION RATE > 60.0 (>56); GLUCOSE, FASTING 50 MG/DL (70-100); POTASSIUM SERUM 4.3 MEQ/L (3.5-5.1); SODIUM LEVEL 141 MEQ/L (136-145); TOTAL PROTEIN 7.1 GM/DL (6.4-8.2)
[2021-08-14 18:25] LABS: ERYTHROCYTE SEDIMENTATION RATE 63 mm/hr (0-20)
== END ==
LOC: M SHH 15:50
PROVIDERS: ATTEND Internal Medicine Infectious Disease
DX: T84.50XA Infection and inflammatory reaction due to unspecified internal joint prosthesis, initial encounter (principal)

== ENCOUNTER 2021-08-20 12:48 | Emergency (ER) | payer BC ==
[~2021-08-20] VITALS: Ht 177.8 cm; Wt 109.1 kg
[2021-08-20] MEDS ORDERED: SODIUM CHLORIDE 0.9% INJ 10 ML SYR IV PRN (13:55)
[2021-08-20] MEDS ORDERED: PERCOCET 5MG/325MG TAB PO ONE (13:55)
[2021-08-20] MEDS ORDERED: DAPT350S IV (14:12)
[2021-08-20 14:43] LABS: BASO # 0.1 10^3/uL (0.0-0.2); BASO % 0.8 % (0.0-1.0); EOS # 0.5 10^3/uL (0.0-0.5); EOS % 5.6 % (0.0-3.0); HEMATOCRIT 32.3 % (42.0-52.0); HEMOGLOBIN 10.5 g/dl (13.5-17.5); LYMPH # 1.9 10^3/uL (1.5-5.0); LYMPH % 22.3 % (24.0-44.0); MEAN CORPUSCULAR HEMOGLOBIN 29.2 pg (27.0-33.0); MEAN CORPUSCULAR HGB CONC 32.5 g/dl (32.0-36.5); MONO # 0.9 10^3/uL (0.0-0.8); MONO % 10.6 % (2.0-8.0); NEUTROPHILS # 5.2 10^3/uL (1.5-8.5); NEUTROPHILS % 60.3 % (36.0-66.0); PLATELET COUNT, AUTOMATED 172 10^3/uL (150-450); RED BLOOD COUNT 3.59 10^6/uL (4.30-6.10); WHITE BLOOD COUNT 8.6 10^3/uL (4.0-10.0)
[2021-08-20 15:01] LABS: ERYTHROCYTE SEDIMENTATION RATE 51 mm/hr (0-20)
[2021-08-20 15:15] LABS: BLOOD UREA NITROGEN 20 MG/DL (7-18); C REACTIVE PROTEIN QUANTITATIV 0.87 MG/DL (0.00-0.30); CALCIUM LEVEL 9.2 MG/DL (8.5-10.1); CARBON DIOXIDE LEVEL 26 MEQ/L (21-32); CHLORIDE LEVEL 105 MEQ/L (98-107); CREATININE FOR GFR 0.73 MG/DL (0.70-1.30); GLOMERULAR FILTRATION RATE > 60.0 (>56); GLUCOSE, FASTING 110 MG/DL (70-100); POTASSIUM SERUM 4.2 MEQ/L (3.5-5.1); SODIUM LEVEL 137 MEQ/L (136-145)
[2021-08-20] MEDS ORDERED: OXYC-517 PO (16:00)
[2021-08-20 16:18] VITALS: BP 134/76
== END 2021-08-20 21:51 | disposition home or self-care (01) ==
LOC: M ED 12:48
DX: R22.42 Localized swelling, mass and lump, left lower limb (principal); E11.9 Type 2 diabetes mellitus without complications; I10 Essential (primary) hypertension; I48.91 Unspecified atrial fibrillation; E78.5 Hyperlipidemia, unspecified; K74.60 Unspecified cirrhosis of liver; Z95.0 Presence of cardiac pacemaker; Z79.899 Other long term (current) drug therapy; Z79.01 Long term (current) use of anticoagulants; Z79.84 Long term (current) use of oral hypoglycemic drugs

== ENCOUNTER → 2021-08-21 | Outpatient (REF) | payer BC ==
[~2021-08-21] MED LIST changes: +DAPT350S IV
[2021-08-21 12:51] LABS: BASO # 0.1 10^3/uL (0.0-0.2); BASO % 1.1 % (0.0-1.0); EOS # 0.5 10^3/uL (0.0-0.5); EOS % 5.7 % (0.0-3.0); HEMATOCRIT 33.3 % (42.0-52.0); HEMOGLOBIN 10.3 g/dl (13.5-17.5); LYMPH # 2.4 10^3/uL (1.5-5.0); LYMPH % 26.9 % (24.0-44.0); MEAN CORPUSCULAR HEMOGLOBIN 29.2 pg (27.0-33.0); MEAN CORPUSCULAR HGB CONC 30.9 g/dl (32.0-36.5); MEAN CORPUSCULAR VOLUME 94.3 fl (80.0-96.0); MONO # 0.8 10^3/uL (0.0-0.8); MONO % 9.5 % (2.0-8.0); NEUTROPHILS % 56.5 % (36.0-66.0); PLATELET COUNT, AUTOMATED 190 10^3/uL (150-450); RED BLOOD COUNT 3.53 10^6/uL (4.30-6.10); WHITE BLOOD COUNT 8.8 10^3/uL (4.0-10.0)
[2021-08-21 13:15] LABS: ERYTHROCYTE SEDIMENTATION RATE 52 mm/hr (0-20)
[2021-08-21 13:19] LABS: ALBUMIN 3.4 GM/DL (3.2-5.2); ALT/SGPT 26 U/L (12-78); BILIRUBIN,TOTAL 0.5 MG/DL (0.2-1.0); BLOOD UREA NITROGEN 24 MG/DL (7-18); C REACTIVE PROTEIN QUANTITATIV 0.74 MG/DL (0.00-0.30); CALCIUM LEVEL 9.3 MG/DL (8.5-10.1); CARBON DIOXIDE LEVEL 29 MEQ/L (21-32); CHLORIDE LEVEL 106 MEQ/L (98-107); GLOMERULAR FILTRATION RATE > 60.0 (>56); GLUCOSE, FASTING 198 MG/DL (70-100); POTASSIUM SERUM 4.3 MEQ/L (3.5-5.1); SODIUM LEVEL 139 MEQ/L (136-145); TOTAL PROTEIN 6.8 GM/DL (6.4-8.2)
== END ==
LOC: M SHH 12:25
PROVIDERS: ATTEND Pharmacist
DX: T84.50XA Infection and inflammatory reaction due to unspecified internal joint prosthesis, initial encounter (principal)

== ENCOUNTER → 2021-08-28 | Outpatient (REF) | payer BC ==
[2021-08-28 15:43] LABS: BASO # 0.1 10^3/uL (0.0-0.2); BASO % 1.4 % (0.0-1.0); EOS # 0.4 10^3/uL (0.0-0.5); EOS % 4.8 % (0.0-3.0); HEMATOCRIT 34.9 % (42.0-52.0); HEMOGLOBIN 11.2 g/dl (13.5-17.5); LYMPH # 1.8 10^3/uL (1.5-5.0); LYMPH % 24.5 % (24.0-44.0); MEAN CORPUSCULAR HEMOGLOBIN 29.5 pg (27.0-33.0); MEAN CORPUSCULAR HGB CONC 32.1 g/dl (32.0-36.5); MEAN CORPUSCULAR VOLUME 91.8 fl (80.0-96.0); MONO # 0.8 10^3/uL (0.0-0.8); MONO % 10.2 % (2.0-8.0); NEUTROPHILS # 4.3 10^3/uL (1.5-8.5); NEUTROPHILS % 58.7 % (36.0-66.0); PLATELET COUNT, AUTOMATED 231 10^3/uL (150-450); WHITE BLOOD COUNT 7.4 10^3/uL (4.0-10.0)
[2021-08-28 16:07] LABS: ALBUMIN 3.5 GM/DL (3.2-5.2); ALT/SGPT 32 U/L (12-78); BILIRUBIN,TOTAL 0.5 MG/DL (0.2-1.0); BLOOD UREA NITROGEN 17 MG/DL (7-18); C REACTIVE PROTEIN QUANTITATIV 0.43 MG/DL (0.00-0.30); CALCIUM LEVEL 9.3 MG/DL (8.5-10.1); CARBON DIOXIDE LEVEL 29 MEQ/L (21-32); CHLORIDE LEVEL 104 MEQ/L (98-107); CREATININE FOR GFR 0.84 MG/DL (0.70-1.30); GLOMERULAR FILTRATION RATE > 60.0 (>56); GLUCOSE, FASTING 114 MG/DL (70-100); POTASSIUM SERUM 4.2 MEQ/L (3.5-5.1); SODIUM LEVEL 137 MEQ/L (136-145); TOTAL PROTEIN 7.5 GM/DL (6.4-8.2)
[2021-08-28 16:40] LABS: ERYTHROCYTE SEDIMENTATION RATE 38 mm/hr (0-20)
== END ==
LOC: M SHH 15:22
PROVIDERS: ATTEND Internal Medicine Infectious Disease
DX: T84.50XA Infection and inflammatory reaction due to unspecified internal joint prosthesis, initial encounter (principal)

== ENCOUNTER 2021-09-01 06:53 | Emergency (ER) | payer BC ==
[~2021-09-01] VITALS: Ht 177.8 cm; Wt 111.4 kg
[2021-09-01] MEDS ORDERED: SODIUM CHLORIDE 0.9% INJ 10 ML SYR IV PRN (07:35)
[2021-09-01] MEDS ORDERED: MORPHINE 4 MG/ML 1ML VIAL/SYRINGE IV ONE (07:35)
[2021-09-01] MEDS ORDERED: tiZANidine 4 MG TAB PO ONE (07:35)
[2021-09-01 08:12] LABS: BASO # 0.1 10^3/uL (0.0-0.2); BASO % 0.9 % (0.0-1.0); EOS # 0.4 10^3/uL (0.0-0.5); EOS % 3.8 % (0.0-3.0); HEMATOCRIT 34.4 % (42.0-52.0); HEMOGLOBIN 11.1 g/dl (13.5-17.5); LYMPH # 2.4 10^3/uL (1.5-5.0); LYMPH % 24.6 % (24.0-44.0); MEAN CORPUSCULAR HEMOGLOBIN 29.9 pg (27.0-33.0); MEAN CORPUSCULAR HGB CONC 32.3 g/dl (32.0-36.5); MEAN CORPUSCULAR VOLUME 92.7 fl (80.0-96.0); MONO # 1.1 10^3/uL (0.0-0.8); MONO % 11.3 % (2.0-8.0); NEUTROPHILS # 5.6 10^3/uL (1.5-8.5); NEUTROPHILS % 59.1 % (36.0-66.0); PLATELET COUNT, AUTOMATED 203 10^3/uL (150-450); RED BLOOD COUNT 3.71 10^6/uL (4.30-6.10); WHITE BLOOD COUNT 9.6 10^3/uL (4.0-10.0)
[2021-09-01 08:31] LABS: ERYTHROCYTE SEDIMENTATION RATE 40 mm/hr (0-20)
[2021-09-01 08:33] LABS: BLOOD UREA NITROGEN 21 MG/DL (7-18); CALCIUM LEVEL 9.5 MG/DL (8.5-10.1); CARBON DIOXIDE LEVEL 31 MEQ/L (21-32); CHLORIDE LEVEL 104 MEQ/L (98-107); CREATININE FOR GFR 0.78 MG/DL (0.70-1.30); GLOMERULAR FILTRATION RATE > 60.0 (>56); GLUCOSE, FASTING 125 MG/DL (70-100); POTASSIUM SERUM 4.3 MEQ/L (3.5-5.1); SODIUM LEVEL 139 MEQ/L (136-145)
[2021-09-01] MEDS ORDERED: PERC5TAB12 PO (10:04)
[2021-09-01] MEDS ORDERED: BACL10TA2 PO (10:04)
[2021-09-01 10:15] VITALS: BP 96/60
== END 2021-09-01 11:22 | disposition home or self-care (01) ==
LOC: M ED 06:53
DX: M25.652 Stiffness of left hip, not elsewhere classified (principal); Z96.652 Presence of left artificial knee joint; I10 Essential (primary) hypertension; E11.9 Type 2 diabetes mellitus without complications; E78.5 Hyperlipidemia, unspecified; I48.91 Unspecified atrial fibrillation; K74.60 Unspecified cirrhosis of liver; Z79.899 Other long term (current) drug therapy; Z79.84 Long term (current) use of oral hypoglycemic drugs; Z79.51 Long term (current) use of inhaled steroids; Z79.01 Long term (current) use of anticoagulants
CPT/HCPCS: 73564; 80048; 83605; 85025; 85652; 86140; 96374; 99283; J1642; J2270

== ENCOUNTER → 2021-09-04 | Outpatient (REF) | payer BC ==
[~2021-09-04] MED LIST changes: +BACL10TA2 PO; +PERC5TAB12 PO
[2021-09-04 10:45] LABS: BASO # 0.1 10^3/uL (0.0-0.2); BASO % 1.1 % (0.0-1.0); EOS # 0.3 10^3/uL (0.0-0.5); EOS % 3.5 % (0.0-3.0); HEMATOCRIT 41.7 % (42.0-52.0); HEMOGLOBIN 13.1 g/dl (13.5-17.5); LYMPH # 2.6 10^3/uL (1.5-5.0); LYMPH % 28.5 % (24.0-44.0); MEAN CORPUSCULAR HEMOGLOBIN 29.4 pg (27.0-33.0); MEAN CORPUSCULAR HGB CONC 31.4 g/dl (32.0-36.5); MEAN CORPUSCULAR VOLUME 93.7 fl (80.0-96.0); MONO % 10.3 % (2.0-8.0); NEUTROPHILS # 5.2 10^3/uL (1.5-8.5); NEUTROPHILS % 56.2 % (36.0-66.0); PLATELET COUNT, AUTOMATED 201 10^3/uL (150-450); RED BLOOD COUNT 4.45 10^6/uL (4.30-6.10); WHITE BLOOD COUNT 9.3 10^3/uL (4.0-10.0)
[2021-09-04 11:17] LABS: ALBUMIN 3.8 GM/DL (3.2-5.2); ALT/SGPT 34 U/L (12-78); BILIRUBIN,TOTAL 0.6 MG/DL (0.2-1.0); BLOOD UREA NITROGEN 17 MG/DL (7-18); C REACTIVE PROTEIN QUANTITATIV 0.31 MG/DL (0.00-0.30); CALCIUM LEVEL 10.1 MG/DL (8.5-10.1); CARBON DIOXIDE LEVEL 29 MEQ/L (21-32); CHLORIDE LEVEL 104 MEQ/L (98-107); CREATININE FOR GFR 0.81 MG/DL (0.70-1.30); GLOMERULAR FILTRATION RATE > 60.0 (>56); GLUCOSE, FASTING 131 MG/DL (70-100); SODIUM LEVEL 138 MEQ/L (136-145); TOTAL PROTEIN 8.2 GM/DL (6.4-8.2)
[2021-09-04 11:24] LABS: ERYTHROCYTE SEDIMENTATION RATE 33 mm/hr (0-20)
== END ==
LOC: M SHH 10:27
PROVIDERS: ATTEND Internal Medicine Infectious Disease
DX: T84.50XA Infection and inflammatory reaction due to unspecified internal joint prosthesis, initial encounter (principal)

== ENCOUNTER → 2021-09-11 | Outpatient (REF) | payer BC ==
[2021-09-11 13:36] LABS: BASO # 0.1 10^3/uL (0.0-0.2); BASO % 1.3 % (0.0-1.0); EOS # 0.4 10^3/uL (0.0-0.5); HEMOGLOBIN 12.2 g/dl (13.5-17.5); LYMPH # 2.4 10^3/uL (1.5-5.0); LYMPH % 25.3 % (24.0-44.0); MEAN CORPUSCULAR HEMOGLOBIN 28.9 pg (27.0-33.0); MEAN CORPUSCULAR HGB CONC 31.3 g/dl (32.0-36.5); MEAN CORPUSCULAR VOLUME 92.4 fl (80.0-96.0); MONO % 10.5 % (2.0-8.0); NEUTROPHILS # 5.6 10^3/uL (1.5-8.5); NEUTROPHILS % 58.5 % (36.0-66.0); PLATELET COUNT, AUTOMATED 193 10^3/uL (150-450); RED BLOOD COUNT 4.22 10^6/uL (4.30-6.10); WHITE BLOOD COUNT 9.5 10^3/uL (4.0-10.0)
[2021-09-11 14:07] LABS: ALBUMIN 3.6 GM/DL (3.2-5.2); ALT/SGPT 34 U/L (12-78); BILIRUBIN,TOTAL 0.5 MG/DL (0.2-1.0); BLOOD UREA NITROGEN 17 MG/DL (7-18); CALCIUM LEVEL 9.6 MG/DL (8.5-10.1); CARBON DIOXIDE LEVEL 29 MEQ/L (21-32); CHLORIDE LEVEL 104 MEQ/L (98-107); CREATININE FOR GFR 0.62 MG/DL (0.70-1.30); GLOMERULAR FILTRATION RATE > 60.0 (>56); GLUCOSE, FASTING 110 MG/DL (70-100); POTASSIUM SERUM 3.7 MEQ/L (3.5-5.1); SODIUM LEVEL 140 MEQ/L (136-145); TOTAL PROTEIN 7.8 GM/DL (6.4-8.2)
[2021-09-11 14:34] LABS: ERYTHROCYTE SEDIMENTATION RATE 28 mm/hr (0-20)
== END ==
LOC: M SHH 12:52
PROVIDERS: ATTEND Internal Medicine Infectious Disease
DX: T84.50XA Infection and inflammatory reaction due to unspecified internal joint prosthesis, initial encounter (principal)

== ENCOUNTER 2021-10-10 05:13 | Emergency (ER) | payer BC, SELFPAY ==
[~2021-10-10] VITALS: Ht 177.8 cm; Wt 113.6 kg
[2021-10-10 06:10] LABS: BASO # 0.1 10^3/uL (0.0-0.2); BASO % 0.7 % (0.0-1.0); EOS # 0.3 10^3/uL (0.0-0.5); EOS % 2.2 % (0.0-3.0); HEMATOCRIT 42.7 % (42.0-52.0); HEMOGLOBIN 13.4 g/dl (13.5-17.5); LYMPH # 1.5 10^3/uL (1.5-5.0); LYMPH % 11.5 % (24.0-44.0); MEAN CORPUSCULAR HEMOGLOBIN 28.6 pg (27.0-33.0); MEAN CORPUSCULAR HGB CONC 31.4 g/dl (32.0-36.5); MONO % 7.9 % (2.0-8.0); NEUTROPHILS # 10.1 10^3/uL (1.5-8.5); NEUTROPHILS % 77.5 % (36.0-66.0); PLATELET COUNT, AUTOMATED 198 10^3/uL (150-450); RED BLOOD COUNT 4.69 10^6/uL (4.30-6.10)
[2021-10-10 06:26] LABS: RSV AMPLIFICATION NEGATIVE (NEGATIVE)
[2021-10-10 06:31] LABS: ALBUMIN 3.7 GM/DL (3.2-5.2); ALT/SGPT 30 U/L (12-78); BILIRUBIN,TOTAL 0.5 MG/DL (0.2-1.0); BLOOD UREA NITROGEN 13 MG/DL (7-18); CALCIUM LEVEL 9.4 MG/DL (8.8-10.2); CARBON DIOXIDE LEVEL 29 MEQ/L (21-32); CHLORIDE LEVEL 104 MEQ/L (98-107); CREATININE FOR GFR 0.78 MG/DL (0.70-1.30); GLOMERULAR FILTRATION RATE > 60.0 (>49); GLUCOSE, FASTING 137 MG/DL (70-100); POTASSIUM SERUM 4.1 MEQ/L (3.5-5.1); SODIUM LEVEL 138 MEQ/L (136-145); TOTAL PROTEIN 7.9 GM/DL (6.4-8.2)
[2021-10-10 10:00] LABS: C REACTIVE PROTEIN QUANTITATIV 0.61 MG/DL (0.00-0.30)
[2021-10-10] MEDS ORDERED: ONDANSETRON 4MG/2ML VIAL IV ONE (10:10)
[2021-10-10] MEDS: MORPHINE 4 MG/ML 1ML VIAL/SYRINGE IV PRN ×2 (10:19→11:48)
[2021-10-10] MEDS ORDERED: OXYC-517 PO (11:51)
[2021-10-10 11:58] VITALS: BP 117/62
[2021-10-10] MEDS ORDERED: oxyCODONE 5MG TAB PO ONE (13:20)
== END 2021-10-10 14:46 | disposition home or self-care (01) ==
LOC: M ED 05:13
DX: G89.29 Other chronic pain (principal); M25.562 Pain in left knee; T85.79XA Infection and inflammatory reaction due to other internal prosthetic devices, implants and grafts, initial encounter; I10 Essential (primary) hypertension; I48.91 Unspecified atrial fibrillation; G47.33 Obstructive sleep apnea (adult) (pediatric); K21.9 Gastro-esophageal reflux disease without esophagitis; K74.60 Unspecified cirrhosis of liver; Z85.038 Personal history of other malignant neoplasm of large intestine; Z99.89 Dependence on other enabling machines and devices; Z95.0 Presence of cardiac pacemaker; Z79.899 Other long term (current) drug therapy; Z79.01 Long term (current) use of anticoagulants; Z79.84 Long term (current) use of oral hypoglycemic drugs
CPT/HCPCS: 73564; 80053; 83605; 85025; 86140; 87040; 87631; 96374; 96375; 96376; 99285; J2270; J2405

== ENCOUNTER → 2021-12-06 | Outpatient (REF) | payer BC ==
[2021-12-06 19:36] LABS: CLOSTRIDIUM DIFFICILE PCR NEGATIVE (NEGATIVE)
== END ==
LOC: M SFHCPLAZ 16:43
PROVIDERS: ATTEND Internal Medicine Infectious Disease
DX: R19.7 Diarrhea, unspecified (principal)

== ENCOUNTER → 2021-12-07 | Outpatient (REF) | payer BC ==
[2021-12-07 17:48] LABS: FERRITIN 51 NG/ML (26-388); IRON (FE) 55 UG/DL (65-175); PERCENT SATURATION 15.6 % (19.7-50.0); TOTAL IRON BINDING CAPACITY 353 UG/DL (250-450)
[2021-12-07 19:37] LABS: FOLATE > 24.0 NG/ML; VITAMIN B12 LEVEL 1092 PG/ML
== END ==
LOC: M LAB REF 16:30
PROVIDERS: ATTEND Family Medicine
DX: K74.60 Unspecified cirrhosis of liver (principal); D64.9 Anemia, unspecified

== ENCOUNTER → 2021-12-13 | Outpatient (REF) | payer BC ==
[2021-12-13 13:23] LABS: HEMOGLOBIN A1c 6.7 %
== END ==
LOC: M SFHCWOUN 12:22
PROVIDERS: ATTEND Surgery
DX: T86.821 Skin graft (allograft) (autograft) failure (principal)

== ENCOUNTER → 2021-12-18 | Outpatient (CLI) | payer BC ==
[2021-12-18 13:56] LABS: BASO # 0.1 10^3/uL (0.0-0.2); BASO % 0.9 % (0.0-1.0); EOS # 0.5 10^3/uL (0.0-0.5); HEMATOCRIT 42.7 % (42.0-52.0); HEMOGLOBIN 13.4 g/dl (13.5-17.5); LYMPH # 2.6 10^3/uL (1.5-5.0); MEAN CORPUSCULAR HEMOGLOBIN 27.4 pg (27.0-33.0); MEAN CORPUSCULAR HGB CONC 31.4 g/dl (32.0-36.5); MEAN CORPUSCULAR VOLUME 87.3 fl (80.0-96.0); MONO # 0.9 10^3/uL (0.0-0.8); MONO % 8.9 % (2.0-8.0); NEUTROPHILS # 5.6 10^3/uL (1.5-8.5); PLATELET COUNT, AUTOMATED 192 10^3/uL (150-450); RED BLOOD COUNT 4.89 10^6/uL (4.30-6.10); WHITE BLOOD COUNT 9.6 10^3/uL (4.0-10.0)
[2021-12-18 14:18] LABS: ERYTHROCYTE SEDIMENTATION RATE 25 mm/hr (0-20)
[2021-12-18 14:41] LABS: BLOOD UREA NITROGEN 14 MG/DL (7-18); C REACTIVE PROTEIN QUANTITATIV 0.54 MG/DL (0.00-0.30); CALCIUM LEVEL 9.9 MG/DL (8.8-10.2); CARBON DIOXIDE LEVEL 29 MEQ/L (21-32); CHLORIDE LEVEL 106 MEQ/L (98-107); CREATININE FOR GFR 0.63 MG/DL (0.70-1.30); GLOMERULAR FILTRATION RATE > 60.0 (>49); GLUCOSE, FASTING 149 MG/DL (70-100); POTASSIUM SERUM 4.1 MEQ/L (3.5-5.1); SODIUM LEVEL 141 MEQ/L (136-145)
== END ==
LOC: M PLALAB 11:04
PROVIDERS: ATTEND Internal Medicine Infectious Disease
DX: T84.54XA Infection and inflammatory reaction due to internal left knee prosthesis, initial encounter (principal)

== ENCOUNTER → 2022-01-16 | Outpatient (CLI) | payer BC ==
[2022-01-16 15:32] LABS: BASO # 0.1 10^3/uL (0.0-0.2); EOS # 0.3 10^3/uL (0.0-0.5); EOS % 3.2 % (0.0-3.0); HEMATOCRIT 43.1 % (42.0-52.0); HEMOGLOBIN 13.2 g/dl (13.5-17.5); LYMPH # 1.8 10^3/uL (1.5-5.0); LYMPH % 21.5 % (24.0-44.0); MEAN CORPUSCULAR HEMOGLOBIN 27.7 pg (27.0-33.0); MEAN CORPUSCULAR HGB CONC 30.6 g/dl (32.0-36.5); MEAN CORPUSCULAR VOLUME 90.5 fl (80.0-96.0); MONO # 0.8 10^3/uL (0.0-0.8); MONO % 9.9 % (2.0-8.0); NEUTROPHILS # 5.2 10^3/uL (1.5-8.5); PLATELET COUNT, AUTOMATED 175 10^3/uL (150-450); RED BLOOD COUNT 4.76 10^6/uL (4.30-6.10); WHITE BLOOD COUNT 8.2 10^3/uL (4.0-10.0)
[2022-01-16 15:53] LABS: ALBUMIN 3.6 GM/DL (3.2-5.2); ALT/SGPT 28 U/L (12-78); BILIRUBIN,TOTAL 0.6 MG/DL (0.2-1.0); BLOOD UREA NITROGEN 13 MG/DL (7-18); C REACTIVE PROTEIN QUANTITATIV 0.31 MG/DL (0.00-0.30); CALCIUM LEVEL 10.2 MG/DL (8.8-10.2); CARBON DIOXIDE LEVEL 30 MEQ/L (21-32); CHLORIDE LEVEL 103 MEQ/L (98-107); CREATININE FOR GFR 0.63 MG/DL (0.70-1.30); GLOMERULAR FILTRATION RATE > 60.0 (>49); GLUCOSE, FASTING 114 MG/DL (70-100); POTASSIUM SERUM 4.1 MEQ/L (3.5-5.1); SODIUM LEVEL 136 MEQ/L (136-145); TOTAL PROTEIN 7.8 GM/DL (6.4-8.2)
[2022-01-16 15:55] LABS: ERYTHROCYTE SEDIMENTATION RATE 18 mm/hr (0-20)
== END ==
LOC: M PLALAB 11:56
PROVIDERS: ATTEND Internal Medicine Infectious Disease
DX: T84.54XA Infection and inflammatory reaction due to internal left knee prosthesis, initial encounter (principal)

== ENCOUNTER → 2022-02-01 | Outpatient (REF) | payer BC ==
[2022-02-01 18:11] LABS: C REACTIVE PROTEIN QUANTITATIV 0.38 MG/DL (0.00-0.30)
== END ==
LOC: M LAB REF 16:12
PROVIDERS: ATTEND Family Medicine
DX: K74.60 Unspecified cirrhosis of liver (principal); M25.562 Pain in left knee

== ENCOUNTER → 2022-04-30 | Outpatient (REF) | payer BC ==
[2022-04-30 14:54] LABS: PROTHROMBIN TIME 13.4 SECONDS (12.5-14.5)
[2022-04-30 14:55] LABS: PARTIAL THROMBOPLASTIN TIME 34.9 SECONDS (24.8-34.2)
== END ==
LOC: M LAB REF 12:18
PROVIDERS: ATTEND Family Medicine
DX: K74.60 Unspecified cirrhosis of liver (principal); Z01.818 Encounter for other preprocedural examination

== ENCOUNTER → 2022-06-20 | Outpatient (REF) | payer BC | LOC: M LAB REF 12:21 | PROVIDERS: ATTEND Family Medicine | DX: K74.60 Unspecified cirrhosis of liver (principal) ==

== ENCOUNTER → 2022-09-28 | Outpatient (CLI) | payer BC | LOC: M SLEEP 20:00 | PROVIDERS: ATTEND Nurse Practitioner Family | DX: G47.33 Obstructive sleep apnea (adult) (pediatric) (principal) ==

== ENCOUNTER → 2022-10-17 | Outpatient (REF) | payer BC | LOC: M LAB REF 16:17 | PROVIDERS: ATTEND Family Medicine | DX: M25.562 Pain in left knee (principal) ==

== ENCOUNTER → 2022-11-19 | Outpatient (REF) | payer BC ==
[~2022-11-19] MED LIST changes: +SENN-111 PO; -SENN18TA PO
== END ==
LOC: M LAB REF 16:21
PROVIDERS: ATTEND Family Medicine
DX: K74.60 Unspecified cirrhosis of liver (principal)

== ENCOUNTER → 2023-04-22 | Outpatient (REF) | payer BC, MEDICARE ==
[~2023-04-22] MED LIST changes: +HYDR-4571 PO; +MEDR4TAB PO; +METH-1164 PO; -ROPI2TAB3 PO; +ROPI2TAB46 PO; -ROPI4TAB3 PO; +ROPI4TAB36 PO
== END ==
LOC: M LAB REF 16:05
PROVIDERS: ATTEND Family Medicine
DX: K74.60 Unspecified cirrhosis of liver (principal)

== ENCOUNTER → 2023-07-25 | Outpatient (REF) | payer BC, MEDICARE ==
[~2023-07-25] MED LIST changes: +MEDR4PAK PO; +TRAM50TA2 PO
== END ==
LOC: M LAB REF 12:53
PROVIDERS: ATTEND Family Medicine
DX: K74.60 Unspecified cirrhosis of liver (principal)

== ENCOUNTER 2023-08-18 07:05 | Emergency (ER) | payer BC, MEDICARE ==
[~2023-08-18] VITALS: Ht 177.8 cm; Wt 104.5 kg
[2023-08-18 07:06] VITALS: TEMP 97.4
[2023-08-18] MEDS ORDERED: DIGO0.123 (07:24)
[2023-08-18] MEDS ORDERED: PREG100C2 (07:24)
[2023-08-18] MEDS: METHOCARBAMOL 1,000 MG/10 ML VIAL IV ONE (08:36)
[2023-08-18] MEDS: ACETAMINOPHEN *IV* 1,000 MG in IV 1 EA IV ONE (09:28)
[2023-08-18] MEDS: MORPHINE 4 MG/ML 1ML VIAL IV ONE (11:13)
[2023-08-18 11:17] VITALS: BP 138/90; O2SAT 98
[2023-08-18] MEDS ORDERED: HYDR-3713 PO (11:48)
== END 2023-08-18 13:10 | disposition home or self-care (01) ==
LOC: M ED 08:21
DX: M51.26 Other intervertebral disc displacement, lumbar region (principal); M51.36 Other intervertebral disc degeneration, lumbar region; M25.78 Osteophyte, vertebrae; M46.96 Unspecified inflammatory spondylopathy, lumbar region; M25.859 Other specified joint disorders, unspecified hip; I10 Essential (primary) hypertension; F41.9 Anxiety disorder, unspecified; F32.A Depression, unspecified; E11.9 Type 2 diabetes mellitus without complications; Z86.79 Personal history of other diseases of the circulatory system; Z87.442 Personal history of urinary calculi; Z79.01 Long term (current) use of anticoagulants; Z79.02 Long term (current) use of antithrombotics/antiplatelets; Z79.4 Long term (current) use of insulin; Z79.83 Long term (current) use of bisphosphonates; Z79.899 Other long term (current) drug therapy
CPT/HCPCS: 72131; 73502; 80047; 96365; 96366; 96375; 99284; J0131; J1100; J2800

== ENCOUNTER → 2023-10-29 | Outpatient (REF) | payer BC, MEDICARE ==
[~2023-10-29] MED LIST changes: +DIGO0.123; +HYDR-3713 PO; +PREG100C2
== END ==
LOC: M LAB REF 16:32
PROVIDERS: ATTEND Family Medicine
DX: K76.9 Liver disease, unspecified (principal); M25.50 Pain in unspecified joint

== ENCOUNTER 2024-02-12 09:15 | Day surgery (SDC) | payer BC ==
[~2024-02-12] VITALS: Ht 177.8 cm; Wt 111.1 kg
[2024-02-12] MEDS: NS 1,000 ML IV ONE (06:00)
[~2024-02-12 09:15] MED LIST changes: -DIGO0.123; +DIGO0.123 PO; -PREG100C2; +PREG100C2 PO; +TIZA10TA PO
[2024-02-12 10:47] VITALS: BP 131/91; O2SAT 96
== END 2024-02-12 10:54 | disposition home or self-care (01) ==
LOC: M OPP 09:15
PROVIDERS: ATTEND Surgery
DX: Z85.038 Personal history of other malignant neoplasm of large intestine (principal); Z08 Encounter for follow-up examination after completed treatment for malignant neoplasm; D12.2 Benign neoplasm of ascending colon; D12.3 Benign neoplasm of transverse colon; K63.5 Polyp of colon; Z98.0 Intestinal bypass and anastomosis status; I48.91 Unspecified atrial fibrillation; E11.9 Type 2 diabetes mellitus without complications; G47.33 Obstructive sleep apnea (adult) (pediatric); Z95.0 Presence of cardiac pacemaker; Z79.01 Long term (current) use of anticoagulants; Z79.02 Long term (current) use of antithrombotics/antiplatelets; Z79.84 Long term (current) use of oral hypoglycemic drugs; Z79.899 Other long term (current) drug therapy

== ENCOUNTER 2024-02-14 13:18 | Emergency (ER) | payer BC ==
[~2024-02-14] VITALS: Ht 177.8 cm; Wt 111.4 kg
[2024-02-14 13:21] VITALS: O2SAT 97
[2024-02-14 15:40] VITALS: O2SAT 99
[2024-02-14] MEDS ORDERED: NIRM1TAB14 PO (15:42)
[2024-02-14] MEDS ORDERED: VENTAER INH (15:42)
[2024-02-14 15:52] VITALS: BP 129/87; TEMP 96.7
== END 2024-02-14 15:54 | disposition home or self-care (01) ==
LOC: M ED 13:18
DX: U07.1 COVID-19 (principal); I10 Essential (primary) hypertension; Z79.51 Long term (current) use of inhaled steroids; Z79.01 Long term (current) use of anticoagulants; Z79.84 Long term (current) use of oral hypoglycemic drugs; Z79.899 Other long term (current) drug therapy

== ENCOUNTER 2024-04-12 14:02 | Emergency (ER) | payer BC ==
[~2024-04-12] VITALS: Ht 177.8 cm; Wt 115.7 kg
[~2024-04-12 14:02] MED LIST changes: +GABA-1172 PO; -GABA-282 PO; -LACT10SO3 PO; +LACT10SO94 PO; +NIRM1TAB14 PO; -SENN-111 PO; +SENN-165 PO; +VENTAER INH
[2024-04-12 17:07] VITALS: BP 158/86; TEMP 97.5; O2SAT 97
[2024-04-12] MEDS ORDERED: PRED20TA PO (17:26)
== END 2024-04-12 17:32 | disposition home or self-care (01) ==
LOC: M ED 14:02
DX: J06.9 Acute upper respiratory infection, unspecified (principal); I48.91 Unspecified atrial fibrillation; E11.9 Type 2 diabetes mellitus without complications; G47.33 Obstructive sleep apnea (adult) (pediatric); K21.9 Gastro-esophageal reflux disease without esophagitis; F10.10 Alcohol abuse, uncomplicated; Z79.51 Long term (current) use of inhaled steroids; Z79.01 Long term (current) use of anticoagulants; Z79.84 Long term (current) use of oral hypoglycemic drugs; Z79.52 Long term (current) use of systemic steroids; Z79.899 Other long term (current) drug therapy

== ENCOUNTER 2024-07-05 19:36 | Inpatient (IN) | payer BC ==
[~2024-07-05] VITALS: Ht 177.8 cm; Wt 113.6 kg
[~2024-07-05 19:36] MED LIST changes: +PRED20TA PO
[2024-07-05] MEDS ORDERED: SODI177S2 (20:40)
[2024-07-05 20:41] LABS: HEMATOCRIT 46.3 % (42.0-52.0); HEMOGLOBIN 15.6 g/dl (13.5-17.5); MEAN CORPUSCULAR HGB CONC 33.7 g/dl (32.0-36.5); MEAN CORPUSCULAR VOLUME 91.9 fl (80.0-96.0); PLATELET COUNT, AUTOMATED 195 10^3/uL (150-450); RED BLOOD COUNT 5.04 10^6/uL (4.30-6.10); WHITE BLOOD COUNT 10.6 10^3/uL (4.0-10.0)
[2024-07-05 21:04] LABS: AMPHETAMINES LEVEL URINE NEGATIVE (NEGATIVE); BARBITURATES URINE NEGATIVE (NEGATIVE); BENZODIAZEPINES URINE NEGATIVE (NEGATIVE); COCAINE METABOLITE URINE NEGATIVE (NEGATIVE); METHADONE URINE NEGATIVE (NEGATIVE); OPIATES URINE NEGATIVE (NEGATIVE)
[2024-07-05 21:05] LABS: ETHYL ALCOHOL (ETHANOL) 0.072 % (0.000-0.010); PHENCYCLIDINE URINE NEGATIVE (NEGATIVE)
[2024-07-05 21:07] LABS: ALBUMIN 3.5 G/DL (3.2-5.2); ALKALINE PHOSPHATASE 94 U/L (40-129); ALT/SGPT 49 U/L (7.0-40); AST/SGOT 35 U/L (<34); BILIRUBIN,DIRECT 0.3 MG/DL (<0.4); BILIRUBIN,TOTAL 0.7 MG/DL (0.3-1.2); BLOOD UREA NITROGEN 16 MG/DL (9-23); CALCIUM LEVEL 9.9 MG/DL (8.3-10.6); CARBON DIOXIDE LEVEL 24 MMOL/L (20-31); CHLORIDE LEVEL 105 MMOL/L (98-107); CREATININE FOR GFR 0.58 MG/DL (0.70-1.30); GLOMERULAR FILTRATION RATE > 60.0 (>49); GLUCOSE, FASTING 121 MG/DL (74-106); POTASSIUM SERUM 4.1 MMOL/L (3.5-5.1); SALICYLATE LEVEL < 3.0 MG/DL (<30); SODIUM LEVEL 139 MMOL/L (136-145); TOTAL PROTEIN 7.7 G/DL (5.7-8.2)
[2024-07-05 21:11] LABS: THYROID STIMULATING HORMONE 0.489 uIU/ML (0.55-4.78)
[2024-07-05 21:12] LABS: CANNABINOIDS URINE POSITIVE (NEGATIVE)
[2024-07-05] MEDS ORDERED: OLANZapine ORAL DISINTEGRATING TAB 5MG PO PRN (22:35)
[2024-07-05] MEDS ORDERED: MOM 30ML SUSPENSION UDC PO PRN (22:35)
[2024-07-05] MEDS ORDERED: LORazepam 2 MG TAB PO PRN (22:35)
[2024-07-05] MEDS ORDERED: diphenhydrAMINE 25MG CAP PO PRN (22:35)
[2024-07-05] MEDS: THIAMINE 100 MG TAB PO SCH (22:45)
[2024-07-05 23:59] VITALS: BP 170/100; TEMP 98.2; O2SAT 95
[2024-07-06 00:06] VITALS: BP 170/100
[2024-07-06] MEDS: ACETAMINOPHEN 325 MG TAB PO PRN (00:22)
[2024-07-06] MEDS: traZODone 50 MG TAB PO PRN (00:22)
[2024-07-06] MEDS: KETOROLAC TROMETHAMINE 10 MG TAB PO ONE (01:19)
[2024-07-06] MEDS ORDERED: SILD50TA2 PO (01:52)
[2024-07-06] MEDS ORDERED: POTA2TAB2 PO (01:52)
[2024-07-06] MEDS ORDERED: HOME MED LIST COMPLETE! XX SCH (01:55)
[2024-07-06] MEDS: LORazepam 1 MG TAB PO PRN (03:02)
[2024-07-06 06:35] VITALS: BP 137/94; TEMP 98.1; O2SAT 97
[2024-07-06] MEDS: NICOTINE 14 MG/24 HR TRANSDERMAL TD SCH (08:34)
[2024-07-06] MEDS: FOLIC ACID 1MG TAB PO SCH (08:36)
[2024-07-06] MEDS: MULTIVITAMINS/MINERALS THERAP 1 TAB PO SCH (08:36)
[2024-07-06] MEDS ORDERED: tiZANidine 4 MG TAB PO PRN (09:15)
[2024-07-06] MEDS: metFORMIN (GLUCOPHAGE) 1000MG TABLET PO SCH (10:13)
[2024-07-06] MEDS: APIXABAN 5 MG TAB (ELIQUIS) PO SCH (10:13)
[2024-07-06] MEDS: PREGABALIN 100 MG CAP (LYRICA) PO SCH (10:14)
[2024-07-06] MEDS: MAGNESIUM OXIDE 400MG TAB (MAG-OX) PO SCH (10:24)
[2024-07-06] MEDS ORDERED: DEXTROSE 50% 50ML SYRINGE IV PRN (10:25)
[2024-07-06] MEDS ORDERED: GLUCAGON INJ 1MG VIAL SC PRN (10:25)
[2024-07-06] MEDS ORDERED: GLUCOSE 4 GM CHEW PO PRN (10:25)
[2024-07-06] MEDS: METOPROLOL TART 50 MG TAB PO SCH (10:26)
[2024-07-06] MEDS: DIGOXIN 0.125 MG TAB PO SCH (10:26)
[2024-07-06] MEDS: FUROSEMIDE 20 MG TAB PO SCH (11:03)
[2024-07-06] MEDS: INSULIN LISPRO (NovoLOG) PER UNIT SC SCH ×2 (12:00→20:59)
[2024-07-06 16:50] VITALS: BP 130/74; TEMP 98.1; O2SAT 95
[2024-07-06 20:38] VITALS: BP 142/81
[2024-07-06] MEDS: ATORVASTATIN 20 MG TAB PO SCH (20:53)
[2024-07-06] MEDS: rOPINIRole 2MG TAB PO SCH (20:55)
[2024-07-06] MEDS: SERTRALINE 100 MG TAB PO SCH (20:55)
[2024-07-07 06:00] VITALS: BP 140/82; TEMP 97.6; O2SAT 92
[2024-07-07] MEDS: OMEPRAZOLE 20MG CAP PO SCH (08:25)
[2024-07-07] MEDS: MAALOX 30 ML SUSP *UDC PO PRN (11:46)
[2024-07-07 16:02] VITALS: BP 142/78; TEMP 97.8
[2024-07-07 20:49] VITALS: BP 134/87
[2024-07-08 05:34] VITALS: BP 149/92
[2024-07-08 06:40] VITALS: BP 149/92; TEMP 97.6; O2SAT 96
[2024-07-08] MEDS ORDERED: FURO20TA2 PO (07:58)
[2024-07-08] MEDS ORDERED: TRAZ-252 PO (07:58)
[2024-07-08] MEDS ORDERED: ZOLO100T PO (07:58)
[2024-07-08 08:25] VITALS: BP 121/70
[2024-07-08] MEDS: FLUBLOK(EGGFREE) TRIVAL(24-25) VACCINE PF 0.5ML SYRINGE 18YRS & OLDER IM.IMMUN ONE (08:29)
[2024-07-08 09:29] VITALS: BP 121/70
== END 2024-07-08 13:06 | disposition home or self-care (01) | DRG 754 ==
LOC: M ED 19:36 → M ED INP 22:35 → M PSY 23:26
PROVIDERS: ADMIT Psychiatry & Neurology Neurology; ATTEND Psychiatry & Neurology Psychiatry
DX: F32.A Depression, unspecified (principal); I49.5 Sick sinus syndrome; K70.30 Alcoholic cirrhosis of liver without ascites; I48.91 Unspecified atrial fibrillation; E11.9 Type 2 diabetes mellitus without complications; F10.10 Alcohol abuse, uncomplicated; I10 Essential (primary) hypertension; E78.5 Hyperlipidemia, unspecified; F41.9 Anxiety disorder, unspecified; G47.33 Obstructive sleep apnea (adult) (pediatric); K21.9 Gastro-esophageal reflux disease without esophagitis; R45.89 Other symptoms and signs involving emotional state; Z85.038 Personal history of other malignant neoplasm of large intestine; Z90.49 Acquired absence of other specified parts of digestive tract; Z91.51 Personal history of suicidal behavior; Z95.0 Presence of cardiac pacemaker; Z79.01 Long term (current) use of anticoagulants; Z79.84 Long term (current) use of oral hypoglycemic drugs; Z79.899 Other long term (current) drug therapy

== ENCOUNTER 2024-07-14 16:51 | Emergency (ER) | payer BC ==
[~2024-07-14] VITALS: Ht 177.8 cm; Wt 117.9 kg
[~2024-07-14 16:51] MED LIST changes: +FURO20TA2 PO; +POTA2TAB2 PO; +SILD50TA2 PO; +SODI177S2; +TRAZ-252 PO; +ZOLO100T PO
[2024-07-14 16:56] VITALS: BP 130/92; TEMP 96.4; O2SAT 97
[2024-07-14 19:43] LABS: HEMATOCRIT 51.9 % (42.0-52.0); HEMOGLOBIN 17.2 g/dl (13.5-17.5); MEAN CORPUSCULAR HEMOGLOBIN 30.9 pg (27.0-33.0); MEAN CORPUSCULAR HGB CONC 33.1 g/dl (32.0-36.5); MEAN CORPUSCULAR VOLUME 93.3 fl (80.0-96.0); PLATELET COUNT, AUTOMATED 174 10^3/uL (150-450); RED BLOOD COUNT 5.56 10^6/uL (4.30-6.10); WHITE BLOOD COUNT 8.3 10^3/uL (4.0-10.0)
[2024-07-14 20:00] LABS: AMPHETAMINES LEVEL URINE NEGATIVE (NEGATIVE); BARBITURATES URINE NEGATIVE (NEGATIVE); COCAINE METABOLITE URINE NEGATIVE (NEGATIVE); PHENCYCLIDINE URINE NEGATIVE (NEGATIVE)
[2024-07-14 20:02] LABS: ETHYL ALCOHOL (ETHANOL) < 0.003 % (0.000-0.010)
[2024-07-14 20:03] LABS: SALICYLATE LEVEL < 3.0 MG/DL (<30)
[2024-07-14 20:04] LABS: ALBUMIN 3.7 G/DL (3.2-5.2); ALKALINE PHOSPHATASE 97 U/L (40-129); ALT/SGPT 39 U/L (7.0-40); AST/SGOT 32 U/L (<34); BILIRUBIN,DIRECT 0.5 MG/DL (<0.4); BILIRUBIN,TOTAL 1.5 MG/DL (0.3-1.2); BLOOD UREA NITROGEN 14 MG/DL (9-23); CARBON DIOXIDE LEVEL 30 MMOL/L (20-31); CHLORIDE LEVEL 102 MMOL/L (98-107); CREATININE FOR GFR 0.58 MG/DL (0.70-1.30); GLOMERULAR FILTRATION RATE > 60.0 (>49); GLUCOSE, FASTING 106 MG/DL (74-106); POTASSIUM SERUM 4.7 MMOL/L (3.5-5.1); SODIUM LEVEL 140 MMOL/L (136-145); TOTAL PROTEIN 8.3 G/DL (5.7-8.2)
[2024-07-14 20:05] LABS: METHADONE URINE NEGATIVE (NEGATIVE); OPIATES URINE NEGATIVE (NEGATIVE); THYROID STIMULATING HORMONE 2.228 uIU/ML (0.55-4.78)
[2024-07-14 20:08] LABS: BENZODIAZEPINES URINE NEGATIVE (NEGATIVE)
[2024-07-14 20:09] LABS: CANNABINOIDS URINE POSITIVE (NEGATIVE)
== END 2024-07-14 20:19 | disposition left against medical advice (07) ==
LOC: M ED 16:51
DX: Z53.21 Procedure and treatment not carried out due to patient leaving prior to being seen by health care provider (principal)

== ENCOUNTER 2024-09-14 19:22 | Emergency (ER) | payer BC ==
[~2024-09-14] VITALS: Ht 177.8 cm; Wt 118.2 kg
[2024-09-14 20:12] VITALS: BP 185/110
[2024-09-14] MEDS: METOPROLOL SUCC *XL* 25MG TAB (TopROL *XL*) PO ONE (20:12)
[2024-09-14] MEDS: IBUPROFEN 600MG TAB PO ONE (20:13)
[2024-09-14] MEDS ORDERED: HYDR-3713 PO (20:47)
[2024-09-14 21:03] VITALS: BP 152/83; TEMP 98.5; O2SAT 98
[2024-09-14] MEDS: NORCO 5/325MG TABLET (HOME DOSE PACK) PO ONE (21:27)
== END 2024-09-14 21:29 | disposition home or self-care (01) ==
LOC: M ED 19:22
DX: S82.431A Displaced oblique fracture of shaft of right fibula, initial encounter for closed fracture (principal); S80.01XA Contusion of right knee, initial encounter; Y92.019 Unspecified place in single-family (private) house as the place of occurrence of the external cause; Y93.9 Activity, unspecified; Y99.9 Unspecified external cause status; I48.91 Unspecified atrial fibrillation; I10 Essential (primary) hypertension; E11.9 Type 2 diabetes mellitus without complications; Z79.1 Long term (current) use of non-steroidal anti-inflammatories (NSAID); Z79.84 Long term (current) use of oral hypoglycemic drugs; Z79.899 Other long term (current) drug therapy

== ENCOUNTER → 2024-09-16 | Outpatient (CLI) | payer BC | LOC: M SOG 08:00 | PROVIDERS: ATTEND Orthopaedic Surgery | DX: S82.831A Other fracture of upper and lower end of right fibula, initial encounter for closed fracture (principal) ==

== ENCOUNTER → 2024-09-22 | Outpatient (CLI) | payer BC | LOC: M SOG 10:48 | PROVIDERS: ATTEND Physician Assistant | DX: S82.64XD Nondisplaced fracture of lateral malleolus of right fibula, subsequent encounter for closed fracture with routine healing (principal) ==

== ENCOUNTER → 2024-09-29 | Outpatient (CLI) | payer BC | LOC: M SOG 07:51 | PROVIDERS: ATTEND Orthopaedic Surgery | DX: S82.64XD Nondisplaced fracture of lateral malleolus of right fibula, subsequent encounter for closed fracture with routine healing (principal) ==

== ENCOUNTER → 2024-10-12 | Outpatient (CLI) | payer BC | LOC: M OUTALCOH 12:32 | PROVIDERS: ATTEND Psychiatry & Neurology Psychiatry | DX: F10.20 Alcohol dependence, uncomplicated (principal) ==

== ENCOUNTER → 2024-10-13 | Outpatient (CLI) | payer BC | LOC: M SOG 06:55 | PROVIDERS: ATTEND Orthopaedic Surgery | DX: S82.64XD Nondisplaced fracture of lateral malleolus of right fibula, subsequent encounter for closed fracture with routine healing (principal) ==

== ENCOUNTER → 2024-12-10 | Outpatient (CLI) | payer BC ==
[~2024-12-10] VITALS: Ht 175.3 cm; Wt 108.5 kg
[~2024-12-10] MED LIST changes: +GABA-1171 PO; +MELO7.5T35 PO; +MIRA33506 PO; +PREG75CA3 PO; +SENN-186 PO; +SENN18TA PO
[2024-12-10 14:47] VITALS: BP 155/83; O2SAT 97
== END ==
LOC: M PAL 14:32
PROVIDERS: ATTEND Physician Assistant
DX: Z51.5 Encounter for palliative care (principal); C77.0 Secondary and unspecified malignant neoplasm of lymph nodes of head, face and neck; C80.1 Malignant (primary) neoplasm, unspecified; R52 Pain, unspecified; K59.00 Constipation, unspecified; Z59.6 Low income; F32.A Depression, unspecified; Z79.01 Long term (current) use of anticoagulants; Z79.84 Long term (current) use of oral hypoglycemic drugs; Z79.899 Other long term (current) drug therapy

== ENCOUNTER 2024-12-16 11:51 | Day surgery (SDC) | payer BC ==
[~2024-12-16] VITALS: Ht 177.8 cm; Wt 104.9 kg
[2024-12-16] MEDS ORDERED: LIDOCAINE 2% INJ 100 MG/5 ML SYRINGE As Ordered ONE (12:33)
[2024-12-16] MEDS ORDERED: PHENYTOIN INJ 250MG/5ML VIAL As Ordered ONE (12:50)
[2024-12-16 13:24] VITALS: TEMP 97
[2024-12-16] MEDS ORDERED: BALMEX CREAM 60 GM EXT STA (13:34)
[2024-12-16 13:55] VITALS: BP 152/82; O2SAT 97
== END 2024-12-16 14:09 | disposition home or self-care (01) ==
LOC: M OPP 11:51
PROVIDERS: ATTEND Surgery
DX: D12.2 Benign neoplasm of ascending colon (principal); K57.30 Diverticulosis of large intestine without perforation or abscess without bleeding; Z98.0 Intestinal bypass and anastomosis status; R93.3 Abnormal findings on diagnostic imaging of other parts of digestive tract; Z79.01 Long term (current) use of anticoagulants; C79.9 Secondary malignant neoplasm of unspecified site; K29.50 Unspecified chronic gastritis without bleeding; I48.91 Unspecified atrial fibrillation; Z95.0 Presence of cardiac pacemaker; G47.30 Sleep apnea, unspecified; Z79.84 Long term (current) use of oral hypoglycemic drugs; Z79.899 Other long term (current) drug therapy; Z86.711 Personal history of pulmonary embolism
CPT/HCPCS: 43239; 45385; 88305; J1165

== ENCOUNTER → 2024-12-21 | Outpatient (CLI) | payer BC | LOC: M SOG 07:02 | PROVIDERS: ATTEND Orthopaedic Surgery | DX: S82.64XD Nondisplaced fracture of lateral malleolus of right fibula, subsequent encounter for closed fracture with routine healing (principal) ==

== ENCOUNTER → 2024-12-24 | Outpatient (CLI) | payer BC ==
[~2024-12-24] MED LIST changes: +MIDAZOLAM INJ 2 MG/2 ML VIAL IV PRN
[2024-12-24 14:00] VITALS: TEMP 98.5
[2024-12-24] MEDS: NS (Normal Saline) 0.9% 1,000 ML IV SCH (14:00)
[2024-12-24] MEDS: ceFAZolin SODIUM 2 GM in DEXTROSE 5% (D5W) ADV/MINI-BAG 50 ML IV ONE (14:53)
[2024-12-24] MEDS: LIDOCAINE 1% MDV 20 ML VIAL SC SCH (15:03)
[2024-12-24 15:15] VITALS: BP 132/83; O2SAT 97
== END ==
LOC: M IRPRO 13:42
PROVIDERS: ATTEND Internal Medicine Medical Oncology
DX: C80.1 Malignant (primary) neoplasm, unspecified (principal)
CPT/HCPCS: 36561; J0690; J1642

== ENCOUNTER → 2025-01-06 | Outpatient (CLI) | payer BC ==
[~2025-01-06] MED LIST changes: -MIDAZOLAM INJ 2 MG/2 ML VIAL IV PRN; +ONDA-84 PO
[2025-01-06 15:24] VITALS: TEMP 97.9
[2025-01-06] MEDS: LIDOCAINE 1% MDV 20 ML VIAL SC STA (15:41)
[2025-01-06 15:44] VITALS: BP 136/87; O2SAT 97
== END ==
LOC: M IRPRO 15:14
PROVIDERS: ATTEND Specialist
DX: C77.0 Secondary and unspecified malignant neoplasm of lymph nodes of head, face and neck (principal); C20 Malignant neoplasm of rectum
CPT/HCPCS: 38505; 76942; 88305; J1642

== ENCOUNTER 2025-01-25 01:42 | Emergency (ER) | payer BC ==
[~2025-01-25] VITALS: Ht 175.3 cm; Wt 104.2 kg
[~2025-01-25 01:42] MED LIST changes: -NIRM1TAB14 PO; +NIRM1TAB16 PO
[2025-01-25 03:05] LABS: BASO # 0.1 10^3/uL (0.0-0.2); BASO % 1.0 % (0.0-1.0); EOS # 0.3 10^3/uL (0.0-0.5); EOS % 4.5 % (0.0-3.0); LYMPH # 1.9 10^3/uL (1.5-5.0); LYMPH % 32.3 % (24.0-44.0); MONO # 0.5 10^3/uL (0.0-0.8); MONO % 9.4 % (2.0-8.0); NEUTROPHILS # 3.0 10^3/uL (1.5-8.5); NEUTROPHILS % 52.1 % (36.0-66.0); PLATELET COUNT, AUTOMATED 185 10^3/uL (150-450)
[2025-01-25 03:30] LABS: CALCIUM LEVEL 9.4 MG/DL (8.3-10.6); CARBON DIOXIDE LEVEL 23 MMOL/L (20-31); CHLORIDE LEVEL 104 MMOL/L (98-107); CK-MB VALUE MASS 2.5 NG/ML (<3.6); CREATININE FOR GFR 0.69 MG/DL (0.70-1.30); GLOMERULAR FILTRATION RATE > 90.0 (>49); POTASSIUM SERUM 4.3 MMOL/L (3.5-5.1); SODIUM LEVEL 137 MMOL/L (136-145)
[2025-01-25 03:37] LABS: CPK CREATINE PHOSPHOKINASE 70 U/L (46-171); MB/CK RELATIVE INDEX 3.57 (< OR =4)
[2025-01-25 04:20] LABS: CK-MB VALUE MASS 2.4 NG/ML (<3.6)
[2025-01-25 04:32] LABS: CPK CREATINE PHOSPHOKINASE 62.0 U/L (46-171); MB/CK RELATIVE INDEX 3.87 (< OR =4)
[2025-01-25] MEDS: IBUPROFEN 600 MG TAB PO ONE (05:18)
[2025-01-25] MEDS: ACETAMINOPHEN 325 MG TAB PO ONE (05:18)
[2025-01-25] MEDS ORDERED: ACET-907 PO (06:01)
[2025-01-25] MEDS ORDERED: GLYD10GE EX (06:03)
[2025-01-25 06:15] VITALS: BP 128/101; TEMP 97; O2SAT 98
== END 2025-01-25 06:20 | disposition home or self-care (01) ==
LOC: M ED 01:42
DX: M79.18 Myalgia, other site (principal); Z95.0 Presence of cardiac pacemaker; I48.91 Unspecified atrial fibrillation; I25.2 Old myocardial infarction; Z79.1 Long term (current) use of non-steroidal anti-inflammatories (NSAID); Z79.01 Long term (current) use of anticoagulants; Z79.84 Long term (current) use of oral hypoglycemic drugs; Z79.899 Other long term (current) drug therapy

== ENCOUNTER → 2025-03-22 | Outpatient (CLI) | payer BC ==
[~2025-03-22] MED LIST changes: +ACET-907 PO; +GLYD10GE EX; +ISOVUE-370 76% 100 ML VIAL As Ordered ONE; +LEVO1TAB39 PO; +MAGICMW SSP
== END ==
LOC: M RAD 14:21
PROVIDERS: ATTEND Internal Medicine Medical Oncology
DX: C18.9 Malignant neoplasm of colon, unspecified (principal); R91.8 Other nonspecific abnormal finding of lung field; K74.60 Unspecified cirrhosis of liver; K80.20 Calculus of gallbladder without cholecystitis without obstruction; R16.0 Hepatomegaly, not elsewhere classified; K57.90 Diverticulosis of intestine, part unspecified, without perforation or abscess without bleeding; M47.815 Spondylosis without myelopathy or radiculopathy, thoracolumbar region
CPT/HCPCS: 71260; 74177; Q9967

== ENCOUNTER → 2025-04-19 | Outpatient (CLI) | payer BC ==
[~2025-04-19] MED LIST changes: +CETI5SOL3 PO; -ISOVUE-370 76% 100 ML VIAL As Ordered ONE
== END ==
LOC: M PLARAD 15:15
DX: C18.8 Malignant neoplasm of overlapping sites of colon (principal)
CPT/HCPCS: 78815; A9552

== ENCOUNTER 2025-05-22 07:24 | Emergency (ER) | payer BC ==
[~2025-05-22] VITALS: Ht 175.3 cm; Wt 108.4 kg
[2025-05-22 07:29] VITALS: BP 149/89; TEMP 97; O2SAT 100
[2025-05-22] MEDS: HEPARIN LOCK FLUSH 100 UNITS/ML 3 ML SYRINGE IV ONE (08:50)
[2025-05-22] MEDS: SODIUM CHLORIDE 0.9% INJ 10 ML SYR IV SCH (09:00)
[2025-05-22 09:44] LABS: BASO # 0.0 10^3/uL (0.0-0.2); BASO % 0.7 % (0.0-1.0); EOS # 0.1 10^3/uL (0.0-0.5); EOS % 2.2 % (0.0-3.0); LYMPH # 1.5 10^3/uL (1.5-5.0); LYMPH % 27.3 % (24.0-44.0); MONO # 1.0 10^3/uL (0.0-0.8); MONO % 18.3 % (2.0-8.0); NEUTROPHILS # 2.7 10^3/uL (1.5-8.5); NEUTROPHILS % 51.3 % (36.0-66.0); PLATELET COUNT, AUTOMATED 112 10^3/uL (150-450)
[2025-05-22 10:07] LABS: C REACTIVE PROTEIN QUANTITATIV 0.62 MG/DL (<1.0)
[2025-05-22 10:08] LABS: ALT/SGPT 33 U/L (7.0-40); AST/SGOT 36 U/L (<34); CALCIUM LEVEL 9.0 MG/DL (8.3-10.6); CARBON DIOXIDE LEVEL 29 MMOL/L (20-31); CHLORIDE LEVEL 102 MMOL/L (98-107); CREATININE FOR GFR 0.67 MG/DL (0.70-1.30); GLOMERULAR FILTRATION RATE > 90.0 (>49); POTASSIUM SERUM 4.1 MMOL/L (3.5-5.1); SODIUM LEVEL 138 MMOL/L (136-145)
[2025-05-22 10:10] LABS: INR 1.21
[2025-05-22] MEDS: CEPHALEXIN 500 MG CAP PO ONE (11:05)
[2025-05-22] MEDS ORDERED: CEPH500C PO (11:05)
[2025-05-25] MEDS ORDERED: MAGN500T12 PO (09:16)
[2025-05-25] MEDS ORDERED: CEPH500T PO (09:16)
== END 2025-05-22 11:32 | disposition home or self-care (01) ==
LOC: M ED 07:24
DX: L03.116 Cellulitis of left lower limb (principal); I48.91 Unspecified atrial fibrillation; E11.9 Type 2 diabetes mellitus without complications; I10 Essential (primary) hypertension; E78.5 Hyperlipidemia, unspecified; G47.33 Obstructive sleep apnea (adult) (pediatric); Z79.01 Long term (current) use of anticoagulants; Z79.2 Long term (current) use of antibiotics; Z79.84 Long term (current) use of oral hypoglycemic drugs; Z79.899 Other long term (current) drug therapy
CPT/HCPCS: 36415; 80053; 83605; 84145; 85025; 85610; 85652; 85730; 86140; 93971; 99284; J1642

== ENCOUNTER → 2025-05-24 | Outpatient (REF) | payer BC ==
[~2025-05-24] MED LIST changes: +CEPH500C PO; +CEPH500T PO; +MAGN500T12 PO
== END ==
LOC: M LAB REF 14:38
PROVIDERS: ATTEND Family Medicine
DX: Z96.653 Presence of artificial knee joint, bilateral (principal)